=== PATIENT | male | born 1940 | race Hispanic/Latino ===

== ENCOUNTER 2016-12-21 08:38 | Emergency (ER) | payer MEDICARE, BC ==
[2016-12-21 08:44] VITALS: TEMP 97.4
--- NOTE | 2016-12-21 10:28 | CT ---
PROCEDURE: CT HEAD WITHOUT CONTRAST. HISTORY: Fall COMPARISON: None available. TECHNIQUE: Axial computed tomography images were obtained through the head/brain without intravenous contrast. Radiation dose: Total exam DLP = 886.19 mGy-cm. This CT exam was performed using one or more of the following dose reduction techniques: Automated exposure control, adjustment of the mA and/or kV according to patient size, and/or use of iterative reconstruction technique. FINDINGS: HEMORRHAGE: No intracranial hemorrhage. 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 There are mild chronic microangiopathic changes. There is no mass, mass effect or abnormal extra-axial fluid collection. There are coarse atherosclerotic calcifications in the cavernous carotid arteries. VENTRICLES: There is mild age-related global parenchymal volume loss and proportionate enlargement of the ventricles and cortical sulci. CALVARIUM: There is no calvarial fracture or extracranial soft tissue swelling. PARANASAL SINUSES: Predominantly clear. MASTOID AIR CELLS: Predominantly clear. OTHER FINDINGS: None. IMPRESSION: No acute intracranial abnormality. Age-related involutional changes.
--- NOTE | 2016-12-21 10:52 | ED PDOC ---
HPI: Trauma/Fall - HPI Time Seen by Provider: 12/21/16 08:52 Chief Complaint (Nursing): Trauma Chief Complaint (Provider): Trauma History Per: Patient History/Exam Limitations: no limitations Onset/Duration Of Symptoms: Hrs (prior to arrival) Additional Complaint(s): 76 y/o male with a past medical history of end stage renal disease who presents to the emergency department with a complaint of left hip pain due to a fall after trying to get something from the car floor just before his Dialysis appointment this morning. Patient states he lost his balance, landed on his left hip and hit the back of the head. Intense pain on the left hip but able to walk. Denies dizziness, chest pain, loss of consciousness or difficulty breathing. PMD: Dr. Anthony Johnson Past Medical History Reviewed: Historical Data, Nursing Documentation, Vital Signs Vital Signs: Last Vital Signs Temp 97.4 F L 12/21/16 08:57 Pulse 66 12/21/16 08:57 Resp 19 12/21/16 09:42 BP 110/50 L 12/21/16 08:57 Pulse Ox 97 12/21/16 09:42 - Medical History PMH: Atrial Fibrillation, CAD, CHF, HTN, Hypercholesterolemia, End Stage Renal Disease (MWF), Chronic Kidney Disease (ESRD) - Surgical History Surgical History: CABG, Coronary Stent, Pacemaker - Family History Family History: States: Unknown Family Hx - Home Medications Home Medications: Ambulatory Orders Medication Instructions Recorded Carvedilol [Coreg] 25 mg PO BID 11/26/14 Clopidogrel [Plavix] 75 mg PO DAILY 11/26/14 Insulin Glargine, Recombina 6 units SC HS 11/26/14 [Lantus] NIFEdipine ER [Procardia XL] 60 mg PO DAILY 11/26/14 Albiglutide [Tanzeum] 30 mg SC QWK 03/20/16 Aspirin [Ecotrin] 81 mg PO DAILY 03/20/16 B Complex & C No.20/Folic Acid 1 cap PO DAILY 03/20/16 [Renal Caps Softgel] Omeprazole 40 mg PO DAILY 03/20/16 SITagliptin [Januvia] 50 mg PO DAILY 03/20/16 Sevelamer Carbonate [Renvela] 2,400 mg PO TID 03/20/16 Lidocaine 5% [Lidoderm] 1 patch TOP DAILY #0 patch 03/22/16 traMADol [Ultram] 50 mg PO TID PRN #12 tab 03/22/16 - Allergies Allergies/Adverse Reactions: Allergies Allergy/AdvReac Type Severity Reaction Status Date / Time No Known Allergies Allergy Verified 11/25/14 21:47 Review of Systems ROS Statement: Except As Marked, All Systems Reviewed And Found Negative Constitutional: Negative for: Other (loss of consciousness) Cardiovascular: Negative for: Chest Pain Respiratory: Negative for: Shortness of Breath Musculoskeletal: Positive for: Other (left hip pain) Neurological: Positive for: Other (Injury to the back of the head). Negative for: Dizziness Physical Exam - Reviewed Nursing Documentation Reviewed: Yes Vital Signs Reviewed: Yes - Physical Exam Appears: Positive for: Non-toxic, No Acute Distress Head Exam: Positive for: ATRAUMATIC, NORMAL INSPECTION, NORMOCEPHALIC Skin: Positive for: Normal Color, Warm, Dry Eye Exam: Positive for: Normal appearance (Patch over the right eye) Neck: Positive for: Normal, Supple Cardiovascular/Chest: Positive for: Regular Rate, Rhythm. Negative for: Murmur Respiratory: Positive for: Normal Breath Sounds. Negative for: Accessory Muscle Use, Respiratory Distress Back: Positive for: Other (Tenderness to the left hip on palpation) Extremity: Positive for: Normal ROM (5/5 strength and able to extended and flexion of the arms and legs bilaterally. Able to move without limition. ) Neurologic/Psych: Positive for: Alert (Awake), Oriented - ECG O2 Sat by Pulse Oximetry: 97 (RA) Pulse Ox Interpretation: Normal Medical Decision Making Medical Decision Making: Time: 8:52 Initial impression: Fall Contusion and head injury Initial plan: --Toradol 60 mg IM --Hip 1 View w/ pelvis LT (RAD) --Head CT --Revaluation Time: 10:26 --Head CT FINDINGS: HEMORRHAGE: No intracranial hemorrhage. 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 There are mild chronic microangiopathic changes. There is no mass, mass effect or abnormal extra-axial fluid collection. There are coarse atherosclerotic calcifications in the cavernous carotid arteries. VENTRICLES: There is mild age-related global parenchymal volume loss and proportionate enlargement of the ventricles and cortical sulci. CALVARIUM: There is no calvarial fracture or extracranial soft tissue swelling. PARANASAL SINUSES: Predominantly clear. MASTOID AIR CELLS: Predominantly clear. OTHER FINDINGS: None. IMPRESSION: No acute intracranial abnormality. Age-related involutional changes. Time: 10:53 --Hip X-ray FINDINGS: BONES: The pelvic ring is intact. There is no acute fracture or bone destruction. JOINTS: There is mild degenerative osteoarthrosis in both hip joints. SOFT TISSUES: Normal. OTHER FINDINGS: There are bilateral common right iliac and left femoral endovascular stent grafts. IMPRESSION: No acute fracture or dislocation. Scribe Attestation: Documented by Shannan Day, acting as a scribe for Doris Guaman MD. Provider Scribe Attestation: All medical record entries made by the Scribe were at my direction and personally dictated by me. I have reviewed the chart and agree that the record accurately reflects my personal performance of the history, physical exam, medical decision making, and the department course for this patient. I have also personally directed, reviewed, and agree with the discharge instructions and disposition. Disposition - Clinical Impression Clinical Impression: Contusion - Patient ED Disposition Is Patient to be Admitted: No Doctor Will See Patient In The: Office Counseled Patient/Family Regarding: Diagnosis, Need For Followup - Disposition Referrals: Anthony Johnson MD [Primary Care Provider] - Disposition: Routine/Home Disposition Time: 11:01 Condition: STABLE Instructions: Fall Prevention for Older Adults (ED) - POA Present On Arrival: Falls Or Trauma
[2016-12-21 11:07] VITALS: BP 132/74; PULSE 74; RESP 20; O2SAT 98
== END 2016-12-21 11:07 | disposition home or self-care (01) ==
LOC: H.ER 08:38 → SUPCPDRO 08:38 → H.ER 11:07
DX: T14.8 Other injury of unspecified body region (principal); W19.XXXA Unspecified fall, initial encounter; I12.0 Hypertensive chronic kidney disease with stage 5 chronic kidney disease or end stage renal disease; N18.6 End stage renal disease; Z99.2 Dependence on renal dialysis; I48.91 Unspecified atrial fibrillation; I25.10 Atherosclerotic heart disease of native coronary artery without angina pectoris; E78.00 Pure hypercholesterolemia, unspecified
CPT/HCPCS: 70450; 73501; 96372; 99285; J1885

== ENCOUNTER 2017-02-06 13:45 | Inpatient (IN) | payer MEDICARE, BC ==
--- NOTE | 2017-02-06 15:07 | ED PDOC ---
Lower Extremity Pain/Injury Time Seen by Provider: 02/06/17 14:09 Chief Complaint (Nursing): Lower Extremity Problem/Injury Chief Complaint (Provider): Rt. Foot Pain History Per: Patient History/Exam Limitations: no limitations Onset/Duration Of Symptoms: Worse Since (1 day) Current Symptoms Are (Timing): Still Present Severity: Severe Additional Complaint(s): Pt. presents to the E.R. complaining of Rt. foot pain. Pt. states he has pain in his RT. foot for five days but became very painful last night. Pt. states had difficulty falling asleep and took Tylenol which helped. Pt. reports he went to dialysis this morning but the pain was persistent and unbareable. Pt. admits that pain is not new and he has had it for approximately 2 months but it was tolerable but starting 5 days ago it has been progressively getting worse. Pt. denies any injury, trauma, or fall. Pt. also denies any fever, chills, redness, or swelling. On ROS, pt. denies any headache, chest pain, palpitations , dyspnea, abdominal pain, nausea, vomiting, or diarrhea. Past Medical History Vital Signs: Last Vital Signs Temp 98.0 F 02/06/17 13:48 Pulse 80 02/06/17 13:48 Resp 16 02/06/17 13:48 BP 119/58 L 02/06/17 13:48 Pulse Ox 96 02/06/17 13:48 - Medical History PMH: Atrial Fibrillation, CAD, CHF, HTN, Hypercholesterolemia, End Stage Renal Disease (MWF), Chronic Kidney Disease (ESRD) - Surgical History Surgical History: CABG, Coronary Stent, Pacemaker - Family History Family History: States: Unknown Family Hx - Home Medications Home Medications: Ambulatory Orders Medication Instructions Recorded Carvedilol [Coreg] 25 mg PO Q12H 11/26/14 Clopidogrel [Plavix] 75 mg PO DAILY 11/26/14 NIFEdipine ER [Procardia XL] 60 mg PO DAILY 11/26/14 Albiglutide [Tanzeum] 30 mg SC QWK 03/20/16 B Complex W-C No.20/Folic Acid 1 cap PO DAILY 03/20/16 [Renal Caps Softgel] SITagliptin [Januvia] 50 mg PO DAILY 03/20/16 Sevelamer Carbonate [Renvela] 2,400 mg PO TID 03/20/16 Atorvastatin [Lipitor] 10 mg PO HS 02/06/17 Pantoprazole Sodium [Protonix] 40 mg PO DAILY 02/06/17 Vorapaxar Sulfate [Zontivity] 2.08 mg PO DAILY 02/06/17 - Allergies Allergies/Adverse Reactions: Allergies Allergy/AdvReac Type Severity Reaction Status Date / Time No Known Allergies Allergy Verified 02/06/17 13:47 Wells Criteria for PE - Wells Criteria for Pulmonary Embolism Clinical Signs and Symptoms of DVT: No P.E is #1 Diagnosis, or Equally Likely: No Heart Rate >100: No Immobilization at least 3 days;Surgery previous 4 weeks: No Previous, objectively diagnosed PE or DVT: No Hemoptysis: No Malignancy w/treatment within 6 months, or palliative: No Total Score: 0 Review of Systems Musculoskeletal: Positive for: Foot Pain (See HPI) Physical Exam - Reviewed Vital Signs Reviewed: Yes - Physical Exam Appears: Positive for: Non-toxic, No Acute Distress Head Exam: Positive for: ATRAUMATIC, NORMOCEPHALIC Cardiovascular/Chest: Positive for: Regular Rate, Rhythm, Other. Negative for: Murmur Respiratory: Positive for: Crackles (bi-basilar ), Other (good air intake). Negative for: Wheezing, Respiratory Distress Gastrointestinal/Abdominal: Positive for: Soft. Negative for: Tenderness Extremity: Positive for: Other (RT 2nd digit- 1cm Ulcer medial surface, RT 1st digit- 2 disting Eschar noted). Negative for: Calf Tenderness - Laboratory Results Result Diagrams: 02/06/17 15:05 02/06/17 15:05 - ECG O2 Sat by Pulse Oximetry: 96 - Progress ED Course And Treament: Tylenol 650mg po for pain Ultram 50mg po for pain CBC, CMP, Wound Culture RT. foot x-ray, TUTU/PVR Podiatry consult Re-evaluation Time: 16:00 Condition: Unchanged Medical Decision Making Medical Decision Makin y.o. male with Hx of CAD s/p CABG, CKD on HD --, HTN, and Diabetes presents with acute RT. foot pain found to have an ulcer at the medial surface of RT. foot 2nd toe with subsequent consult with Podiatry. After discussion with podiatry the ulcer appears to be arterial in etiology and patient will need further evaluation and a vascular workup. Disposition - Clinical Impression Clinical Impression: Ulcer of foot - Patient ED Disposition Is Patient to be Admitted: Yes Discussed With DrTanya: Doris Guaman - Disposition Disposition Time: 16:50 Condition: GUARDED
[2017-02-06 15:29] LABS: BASO # 0.1 K/uL (0.0-0.2); BASO % 0.5 % (0.0-2.0); EOS # 0.1 K/uL (0.0-0.7); EOS % 0.5 % (0.0-4.0); HEMATOCRIT 28.4 % (35.0-51.0); LYMPH # 1.1 K/uL (1.0-4.3); LYMPH % 8.5 % (20.0-40.0); MEAN CORPUSCULAR HEMOGLOBIN 21.2 pg (27.0-31.0); MEAN CORPUSCULAR HGB CONC 29.5 g/dL (33.0-37.0); MEAN PLATELET VOLUME 9.4 fl (7.2-11.7); MONO # 1.3 K/uL (0.0-0.8); MONO % 10.3 % (0.0-10.0); NEUT # 10.4 K/uL (1.8-7.0); NEUT % 80.2 % (50.0-75.0); NRBC % 0.1 % (0.0-0.0); PLATELET COUNT 190 K/uL (130-400); WHITE BLOOD COUNT 12.9 K/uL (4.8-10.8)
[2017-02-06 15:41] LABS: ALB/GLOB RATIO 1.2 (1.0-2.1); BILIRUBIN,TOTAL 0.8 mg/dl (0.2-1.3); CALCIUM 9.6 mg/dL (8.4-10.2); POTASSIUM 3.6 MMOL/L (3.6-5.0); TOTAL PROTEIN 8.4 G/DL (6.3-8.2)
[2017-02-06 16:00] LABS: NEUTROPHIL 85 % (42-75); TOTAL CELLS COUNTED 100
[2017-02-06 16:10] LABS: LARGE PLATELETS PRESENT
--- NOTE | 2017-02-06 17:35 | CP.PCM.CON ---
History of Present Illness - History of Present Illness History of Present Illness: 76 y/o male with pmhx of Atrial Fibrillation, CAD, CHF, HTN, Hypercholesterolemia, End Stage Renal Disease (MWF), Chronic Kidney Disease ( ESRD) seen at bedside in the ED for right foot ulceration and necrotic wounds. Patient states that he has had the ulceration on his 2nd toe of the right foot for 2 months but noticed pain for 1 day. Patient had dialysis this morning and decided to come to the ED after because the pain was intolerable. Patient denies any recent trauma or injury to his right foot. He denies any n/f/v/c/d/ sob. Review of Systems - Constitutional Constitutional: As Per HPI Past Patient History - Infectious Disease Hx of Infectious Diseases: None - Past Medical History & Family History Past Medical History?: Yes - Past Social History Smoking Status: Former Smoker - CARDIAC Hx Cardiac Disorders: Yes (CHF,HTN, afib,pacemaker,) - PULMONARY Hx Respiratory Disorders: Yes (pleural effusion) - HEENT Hx HEENT Problems: No - RENAL Hx Chronic Kidney Disease: Yes (ESRD) - ENDOCRINE/METABOLIC Hx Diabetes Mellitus Type 1: Yes - HEMATOLOGICAL/ONCOLOGICAL Hx Blood Disorders: No - INTEGUMENTARY Hx Dermatological Problems: No - MUSCULOSKELETAL/RHEUMATOLOGICAL Hx Falls: Yes - GASTROINTESTINAL Hx Gastrointestinal Disorders: No - GENITOURINARY/GYNECOLOGICAL Hx Genitourinary Disorders: No - PSYCHIATRIC Hx Psychophysiologic Disorder: No Hx Substance Use: No - SURGICAL HISTORY Hx Coronary Artery Bypass Graft: Yes Hx Coronary Stent: Yes - ANESTHESIA Hx Anesthesia: Yes Hx Anesthesia Reactions: No Meds Allergies/Adverse Reactions: Allergies Allergy/AdvReac Type Severity Reaction Status Date / Time No Known Allergies Allergy Verified 02/06/17 13:47 - Medications Medications: Current Medications Acetaminophen (Tylenol 325mg Tab) 650 mg PO Q6 PRN PRN Reason: Pain, moderate (4-7) Atorvastatin Calcium (Lipitor) 10 mg PO HS [facility]ACIEL Carvedilol (Coreg) 25 mg PO Q12H RACI[facility] Heparin Sodium (Porcine) (Heparin) 5,000 units SC Q8 RACIEL PRN Reason: Protocol Insulin Human Regular (Humulin R) 0 units SC ACHS RACIEL PRN Reason: Protocol Nifedipine (Procardia Xl) 60 mg PO DAILY RAC[facility] Pantoprazole Sodium (Protonix Ec Tab) 40 mg PO DAILY R[facility] Sevelamer HCl (Renagel) 2,400 mg PO TID RACIEL Sitagliptin Phosphate (Januvia) 25 mg PO DAILY RACI[facility] Tramadol HCl (Ultram) 50 mg PO Q8 PRN PRN Reason: Pain, severe (8-10) Vitamin B Complex/Vit C/Folic Acid (Nephro-Niko) 1 tab PO DAILY RACIEL Physical Exam - Constitutional Appears: Well, Non-toxic, No Acute Distress - Extremities Exam Additional comments: Vasc: nonpalpable pedal pulses b/l, TG wnl, CFT < 4 sec to all digits, edema to 1st and 2nd digits R foot neuro: grossly diminished derm: edema and erythema to 1st and 2nd digits of R foot, open ulceration measuring 0.5cm x 0.5cm x 0.1 cm with fibrogranular base and fibrotic border, no drainage, no purulence, no abscess, no ascending cellullitis, necrotic eschar noted to medial hallux and dorsal hallucal nail ortho: pain on palpation to 1st and 2nd digits of R foot - Neurological Exam Neurological exam: Alert, Oriented x3 - Psychiatric Exam Psychiatric exam: Normal Affect, Normal Mood Results - Vital Signs Recent Vital Signs: Last Vital Signs Temp 98.6 F 02/06/17 17:07 Pulse 86 02/06/17 17:07 Resp 16 02/06/17 17:07 BP 122/53 L 02/06/17 17:07 Pulse Ox 96 02/06/17 16:51 - Labs Result Diagrams: 02/06/17 15:05 02/06/17 15:05 Assessment & Plan - Assessment and Plan (Free Text) Assessment: 76 y/o male with pmhx of Atrial Fibrillation, CAD, CHF, HTN, Hypercholesterolemia, End Stage Renal Disease (MWF), Chronic Kidney Disease ( ESRD) seen in ED for R 2nd digit ulceration and gangrenous changes to Right hallux Plan: patient evaluated and chart reviewed discussed in detail with attending Dr. Lebron labs and vitals reviewed; WBC 12.9 applied DSD to R foot wound cx obtained f/u x rays f/u TUTU/PVR f/u Vascular consult podiatry will continue to follow while patient remains in house
--- NOTE | 2017-02-06 18:24 | CP.PCM.CON ---
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 THE PATIENT HAD A BILATERAL LE ANGIOGRAM BY DR NIXON AND HAD STENTING OF THE LLE MORE THAN A YEAR AGO. HE HAD RLE PAD ALSO BUT DECLINED TO GO BACK FOR RLE STENTING HE THOUGHT HE HAD TOO MUCH PAIN FROM THE THE PRIOR LLE STENTING. HE NOW CLAIMS THAT HE HAS HAD PAIN IN THE FIRST TWO DIGITS OF THE RIGHT FOOT FOR SEVERAL WEEKS BUT THE PAIN BECAME MORE SEVERE FOR THE LAST FEW DAYS AND AT HD TODAY HE WAS ADVISED TO GO TO THE ER. HE WAS FOUND TO HAVE ULCERS ON THE FIRST TWO TOES OF THE RIGHT FOOT AND WAS ADMITTED. CARDIOLOGY WAS ASKED TO SEE AND FOLLOW HIM. HE DENIES CHEST PAIN OR SOB. Past Patient History - Infectious Disease Hx of Infectious Diseases: None - Past Medical History & Family History Past Medical History?: Yes - Past Social History Smoking Status: Former Smoker - CARDIAC Hx Cardiac Disorders: Yes (CHF,HTN, afib,pacemaker,) - PULMONARY Hx Respiratory Disorders: Yes (pleural effusion) - HEENT Hx HEENT Problems: No - RENAL Hx Chronic Kidney Disease: Yes (ESRD) - ENDOCRINE/METABOLIC Hx Diabetes Mellitus Type 1: Yes - HEMATOLOGICAL/ONCOLOGICAL Hx Blood Disorders: No - INTEGUMENTARY Hx Dermatological Problems: No - MUSCULOSKELETAL/RHEUMATOLOGICAL Hx Falls: Yes - GASTROINTESTINAL Hx Gastrointestinal Disorders: No - GENITOURINARY/GYNECOLOGICAL Hx Genitourinary Disorders: No - PSYCHIATRIC Hx Psychophysiologic Disorder: No Hx Substance Use: No - SURGICAL HISTORY Hx Coronary Artery Bypass Graft: Yes Hx Coronary Stent: Yes - ANESTHESIA Hx Anesthesia: Yes Hx Anesthesia Reactions: No Meds Allergies/Adverse Reactions: Allergies Allergy/AdvReac Type Severity Reaction Status Date / Time No Known Allergies Allergy Verified 02/06/17 13:47 - Medications Medications: Current Medications Acetaminophen (Tylenol 325mg Tab) 650 mg PO Q6 PRN PRN Reason: Pain, moderate (4-7) Atorvastatin Calcium (Lipitor) 10 mg PO HS RACIEL Carvedilol (Coreg) 25 mg PO Q12H RACIEL Heparin Sodium (Porcine) (Heparin) 5,000 units SC Q8 RACIEL PRN Reason: Protocol Insulin Human Regular (Humulin R) 0 units SC ACHS RACIEL PRN Reason: Protocol Nifedipine (Procardia Xl) 60 mg PO DAILY RACIEL Pantoprazole Sodium (Protonix Ec Tab) 40 mg PO DAILY RACIEL Sevelamer HCl (Renagel) 2,400 mg PO TID RACIEL Sitagliptin Phosphate (Januvia) 25 mg PO DAILY RACIEL Tramadol HCl (Ultram) 50 mg PO Q8 PRN PRN Reason: Pain, severe (8-10) Vitamin B Complex/Vit C/Folic Acid (Nephro-Niko) 1 tab PO DAILY RACIEL Physical Exam - Respiratory Exam Additional comments: DECREASED BREATH SOUND RT BASE(CHRONIC SINCE FALL WITH RIB FRACTURE IN THE PAST WITH BLOODY PLEURAL EFFUSION ON THORACENTESIS) - Cardiovascular Exam Cardiovascular Exam: REGULAR RHYTHM, +S1, +S2 - Extremities Exam Additional comments: RIGHT FOOT WITH SMALL ULCERS ON MEDIAL AND LATERAL FIRST TOE AND MEDIAL ULCER ON SECOND TOE - Additional Findings Additional findings: WBC 12.9 EKG AND CXR NOT DONE YET Results - Vital Signs Recent Vital Signs: Last Vital Signs Temp 98.0 F 02/06/17 17:40 Pulse 80 02/06/17 17:40 Resp 19 02/06/17 17:40 BP 113/54 L 02/06/17 17:40 Pulse Ox 92 L 02/06/17 17:40 - Labs Result Diagrams: 02/06/17 15:05 02/06/17 15:05 Assessment & Plan - Assessment and Plan (Free Text) Assessment: PAD WITH RIGHT FOOT TOE ULCERS CAD WITH CABGS AND MITRAL VALVE RING REPAIR HYPERTENSION HYPERLIPIDEMIA DM CRF ON HD Plan: THE PATIENT WAS ADMITTED TO 6S PT ALREADY SEEN BY PODIATRY ARTERIAL VASCULAR STUDIES ALREADY ORDERED THE PATIENT IS ON COREG, ASPIRIN, HEPARIN, ATORVASTATIN, JANUVIA AND PROCARDIA NEPHROLOGY TO SEE THE PATIENT MAY NEED A RLE ANGIOGRAM WITH REVASCULARIZATION IF POSSIBLE
--- NOTE | 2017-02-06 18:25 | RAD ---
PROCEDURE: Right Foot Radiographs. HISTORY: Ulcer, Pain COMPARISON: None available. FINDINGS: BONES: Cortical irregularity along the medial aspect of the proximal 1st phalanx. No appreciable soft tissue defect at this level. Remainder of the visualized osseous structures appear unremarkable. JOINTS: No dislocation. SOFT TISSUES: Soft tissue swelling. No evidence of radiopaque foreign body. Vascular calcifications. OTHER FINDINGS: None. IMPRESSION: Soft tissue swelling. Cortical irregularity along the medial aspect of the proximal 1st phalanx. No appreciable soft tissue defect at this level. Please note MRI without and with IV contrast most sensitive in detection of acute osteomyelitis.
--- NOTE | 2017-02-06 20:47 | CP.PCM.CON ---
History of Present Illness - History of Present Illness History of Present Illness: dictated Past Patient History - Infectious Disease Hx of Infectious Diseases: None - Past Medical History & Family History Past Medical History?: Yes - Past Social History Smoking Status: Former Smoker - CARDIAC Hx Cardiac Disorders: Yes (CHF,HTN, afib,pacemaker,) - PULMONARY Hx Respiratory Disorders: Yes (pleural effusion) - HEENT Hx HEENT Problems: No - RENAL Hx Chronic Kidney Disease: Yes (ESRD) - ENDOCRINE/METABOLIC Hx Diabetes Mellitus Type 1: Yes - HEMATOLOGICAL/ONCOLOGICAL Hx Blood Disorders: No - INTEGUMENTARY Hx Dermatological Problems: No - MUSCULOSKELETAL/RHEUMATOLOGICAL Hx Falls: Yes - GASTROINTESTINAL Hx Gastrointestinal Disorders: No - GENITOURINARY/GYNECOLOGICAL Hx Genitourinary Disorders: No - PSYCHIATRIC Hx Psychophysiologic Disorder: No Hx Substance Use: No - SURGICAL HISTORY Hx Coronary Artery Bypass Graft: Yes Hx Coronary Stent: Yes - ANESTHESIA Hx Anesthesia: Yes Hx Anesthesia Reactions: No Meds Allergies/Adverse Reactions: Allergies Allergy/AdvReac Type Severity Reaction Status Date / Time No Known Allergies Allergy Verified 02/06/17 13:47 - Medications Medications: Current Medications Acetaminophen (Tylenol 325mg Tab) 650 mg PO Q6 PRN PRN Reason: Pain, moderate (4-7) Aspirin (Ecotrin) 81 mg PO DAILY [facility] Atorvastatin Calcium (Lipitor) 10 mg PO HS RACIEL Carvedilol (Coreg) 25 mg PO Q12H RACIEL Heparin Sodium (Porcine) (Heparin) 5,000 units SC Q8 RACIEL PRN Reason: Protocol Last Admin: 02/06/17 19:09 Dose: 5,000 units Insulin Human Regular (Humulin R) 0 units SC ACHS [facility] PRN Reason: Protocol Nifedipine (Procardia Xl) 60 mg PO DAILY RACIEL Pantoprazole Sodium (Protonix Ec Tab) 40 mg PO DAILY RACIEL Sevelamer HCl (Renagel) 2,400 mg PO TID RACIEL Sitagliptin Phosphate (Januvia) 25 mg PO DAILY RACIEL Tramadol HCl (Ultram) 50 mg PO Q8 PRN PRN Reason: Pain, severe (8-10) Vitamin B Complex/Vit C/Folic Acid (Nephro-Niko) 1 tab PO DAILY [facility] Results - Vital Signs Recent Vital Signs: Last Vital Signs Temp 98.0 F 02/06/17 17:40 Pulse 80 02/06/17 17:57 Resp 20 02/06/17 17:57 BP 113/54 L 02/06/17 17:40 Pulse Ox 95 02/06/17 17:57 - Labs Result Diagrams: 02/06/17 15:05 02/06/17 15:05
--- NOTE | 2017-02-06 21:33 | CON ---
DATE: 02/06/2017 REQUESTING PHYSICIAN: Dr. Huff. HISTORY OF PRESENT ILLNESS: This patient who is 76 years of age, known to me with end-stage renal disease, on maintenance hemodialysis Saturday, Saturday, Saturday. He was complaining today at the dialysis with severe pain in the right big and second toes on the right foot and it was noted that he has ulcerations and the patient stated that he has had this ulcer for about a month or less, and although the pain increasing for which he decided to ask for pain medication and he was sent to the Emergency Room for further evaluation. PAST MEDICAL HISTORY: Significant for: 1. Chronic congestive heart failure with an ejection fraction in the range of 20%-25%. 2. Diabetes mellitus for a long time. Not controlled because the patient is not compliant with the dialysis, not compliant with the medication and the patient has intermittent volume overload with congestive heart failure because of the fluid. According to the he has been drinking a lot of fluid and eating sugar among other things that is raising his blood sugar. 3. Hypertension. 4. Hyperlipidemia. 5. CABG with defibrillator in place. 6. The patient also has a history of peripheral vascular disease. He has had stenting in the left leg; however, he declined to have stenting on the right leg where he had the ulceration. SOCIAL HISTORY: The patient is , with children, but he is not compliant. The brings him to dialysis and she is always complaining about his noncompliance. PHYSICAL EXAMINATION: GENERAL: The patient is conscious, not in acute distress. VITAL SIGNS: His blood pressure is 113/54, temperature normal 98.0. NECK: Supple. CHEST: Clear. No rales or rhonchi. HEART: No rubs could be appreciated and no distended jugular vein. ABDOMEN: He might have some ascites, it is somewhat distended. EXTREMITIES: He has trace edema. LABORATORY DATA: Showed a hemoglobin of 8.4,WBC 12.9 with a creatinine of 3.2, BUN 26, post-hemodialysis. IMPRESSION AND PLAN: The patient was admitted with ulceration and foot ulcer of the right leg first and second toes with redness and appeared to be some cellulitis as well. In addition, the patient has chronic renal failure on dialysis, chronic congestive heart failure, peripheral vascular disease, diabetes. PLAN: antibiotics, seen by podiatry, probably peripheral arterial Doppler to be done and may need extra hemodialysis. I will be talking to the patient further, if he is agreeable.vascular evaluation, Tono Frost MD cc: 19 TT: 02/06/2017 21:32:23 Confirmation # [id number] Dictation # [id number] ana ROSE
[2017-02-06] MEDS: Insulin Regular 100 units/ml SC SCH (22:50)
[2017-02-07 06:52] LABS: BASO # 0.1 K/uL (0.0-0.2); BASO % 0.5 % (0.0-2.0); EOS # 0.1 K/uL (0.0-0.7); EOS % 0.5 % (0.0-4.0); HEMATOCRIT 25.8 % (35.0-51.0); LYMPH # 1.1 K/uL (1.0-4.3); LYMPH % 8.7 % (20.0-40.0); MEAN CELL VOLUME 71.9 fl (80.0-94.0); MEAN CORPUSCULAR HEMOGLOBIN 21.4 pg (27.0-31.0); MEAN CORPUSCULAR HGB CONC 29.8 g/dL (33.0-37.0); MEAN PLATELET VOLUME 9.8 fl (7.2-11.7); MONO # 1.4 K/uL (0.0-0.8); MONO % 11.8 % (0.0-10.0); NEUT # 9.5 K/uL (1.8-7.0); NEUT % 78.5 % (50.0-75.0); NRBC % 0.1 % (0.0-0.0); RED CELL DISTRIBUTION WIDTH 20.5 % (11.5-14.5); WHITE BLOOD COUNT 12.1 K/uL (4.8-10.8)
[2017-02-07 07:28] LABS: ALB/GLOB RATIO 1.1 (1.0-2.1); BILIRUBIN,TOTAL 0.7 mg/dl (0.2-1.3); CALCIUM 9.1 mg/dL (8.4-10.2); POTASSIUM 4.2 MMOL/L (3.6-5.0); TOTAL PROTEIN 7.4 G/DL (6.3-8.2)
[2017-02-07] MEDS: Insulin Regular 100 units/ml SC SCH ×4 (07:40→22:15)
[2017-02-07 07:43] LABS: PARTIAL THROMBOPLASTIN TIME 30.3 Seconds (25.6-37.1)
--- NOTE | 2017-02-07 08:24 | CP.PCM.PN ---
Subjective - Date & Time of Evaluation Date of Evaluation: 02/07/17 Time of Evaluation: 08:22 - Subjective Subjective: 76 y/o male with seen at bedside in the ED for right foot ulceration and necrotic wounds. Patient denies any acute events overnight. He states that the pain has gotten a little bit better than yesterday. Patient denies any recent trauma or injury to his right foot. He denies any n/f/v/c/d/sob. Objective - Vital Signs/Intake and Output Vital Signs (last 24 hours): Temp Pulse Resp BP Pulse Ox 98.7 F 67 20 110/60 95 02/07/17 07:40 02/07/17 07:40 02/07/17 07:40 02/07/17 07:40 02/07/17 07:40 - Medications Medications: Current Medications Acetaminophen (Tylenol 325mg Tab) 650 mg PO Q6 PRN PRN Reason: Pain, moderate (4-7) Aspirin (Ecotrin) 81 mg PO DAILY [facility] Atorvastatin Calcium (Lipitor) 10 mg PO HS [facility] Last Admin: 02/06/17 22:45 Dose: 10 mg Carvedilol (Coreg) 25 mg PO Q12H [facility] Last Admin: 02/07/17 04:30 Dose: 25 mg Heparin Sodium (Porcine) (Heparin) 5,000 units SC Q8 [facility] PRN Reason: Protocol Last Admin: 02/07/17 00:16 Dose: 5,000 units Insulin Human Regular (Humulin R) 0 units SC ACHS [facility] PRN Reason: Protocol Last Admin: 02/06/17 22:50 Dose: Not Given Nifedipine (Procardia Xl) 60 mg PO DAILY [facility] Pantoprazole Sodium (Protonix Ec Tab) 40 mg PO DAILY [facility] Sevelamer HCl (Renagel) 2,400 mg PO TID [facility] Sitagliptin Phosphate (Januvia) 25 mg PO DAILY [facility] Tramadol HCl (Ultram) 50 mg PO Q8 PRN PRN Reason: Pain, severe (8-10) Last Admin: 02/07/17 00:12 Dose: 50 mg Vitamin B Complex/Vit C/Folic Acid (Nephro-Niko) 1 tab PO DAILY [facility] - Labs Labs: 02/07/17 06:05 02/07/17 06:05 PT 14.1 Seconds (9.8-13.1) H 02/07/17 06:05 INR 1.2 (0.9-1.2) 02/07/17 06:05 APTT 30.3 Seconds (25.6-37.1) 02/07/17 06:05 - Constitutional Appears: Well, Non-toxic, No Acute Distress - Extremities Exam Additional comments: Vasc: nonpalpable pedal pulses b/l, TG wnl, CFT < 4 sec to all digits, edema to 1st and 2nd digits R foot neuro: grossly diminished derm: edema and erythema to 1st and 2nd digits of R foot, open ulceration measuring 0.5cm x 0.5cm x 0.1 cm with fibrogranular base and fibrotic border, no drainage, no purulence, no abscess, mild malodor, no ascending cellullitis, necrotic eschar noted to medial hallux and dorsal hallucal nail ortho: pain on palpation to 1st and 2nd digits of R foot - Neurological Exam Neurological Exam: Alert, Awake, Oriented x3 - Psychiatric Exam Psychiatric exam: Normal Affect, Normal Mood Assessment and Plan - Assessment and Plan (Free Text) Assessment: 76 y/o male seen at bedside for R 2nd digit ulceration and gangrenous changes to Right hallux Plan: patient evaluated and chart reviewed discussed in detail with attending Dr. Lebron labs and vitals reviewed; WBC 12.1, afebrile applied DSD to R foot wound cx obtained Rx betadine X rays of right foot show soft tissue swelling, cortical irregularity of 1st proximal phalanx f/u TUTU/PVR f/u Vascular consult podiatry will continue to follow while patient remains in house
[2017-02-07] MEDS ORDERED: Povidone Iodine 10% OINTMENT TOP ONE (08:27)
[2017-02-07] MEDS: Multivitamin Vitamin B Complex (Nephro-Vite) Tab PO SCH (09:00)
[2017-02-07] MEDS: Pantoprazole 40 mg EC Tab PO SCH (09:12)
[2017-02-07] MEDS: NIFEdipine 60 mg ER Tab PO SCH (09:13)
--- NOTE | 2017-02-07 10:12 | CP.PCM.PN ---
Subjective - Date & Time of Evaluation Date of Evaluation: 02/07/17 Time of Evaluation: 09:45 - Subjective Subjective: NO CHEST PAIN OR SOB Objective - Vital Signs/Intake and Output Vital Signs (last 24 hours): Temp Pulse Resp BP Pulse Ox 98.7 F 67 20 110/60 95 02/07/17 07:40 02/07/17 07:40 02/07/17 07:40 02/07/17 07:40 02/07/17 07:40 - Medications Medications: Current Medications Acetaminophen (Tylenol 325mg Tab) 650 mg PO Q6 PRN PRN Reason: Pain, moderate (4-7) Aspirin (Ecotrin) 81 mg PO DAILY [facility] Atorvastatin Calcium (Lipitor) 10 mg PO HS [facility] Last Admin: 02/06/17 22:45 Dose: 10 mg Carvedilol (Coreg) 25 mg PO Q12H [facility] Last Admin: 02/07/17 04:30 Dose: 25 mg Heparin Sodium (Porcine) (Heparin) 5,000 units SC Q8 [facility] PRN Reason: Protocol Last Admin: 02/07/17 00:16 Dose: 5,000 units Insulin Human Regular (Humulin R) 0 units SC ACHS [facility] PRN Reason: Protocol Last Admin: 02/06/17 22:50 Dose: Not Given Iohexol (Omnipaque 240 (50 Ml)) 50 ml PO ONCE ONE Stop: 02/07/17 10:00 Nifedipine (Procardia Xl) 60 mg PO DAILY [facility] Pantoprazole Sodium (Protonix Ec Tab) 40 mg PO DAILY [facility] Sevelamer HCl (Renagel) 2,400 mg PO TID [facility] Sitagliptin Phosphate (Januvia) 25 mg PO DAILY [facility] Tramadol HCl (Ultram) 50 mg PO Q8 PRN PRN Reason: Pain, severe (8-10) Last Admin: 02/07/17 00:12 Dose: 50 mg Vitamin B Complex/Vit C/Folic Acid (Nephro-Niko) 1 tab PO DAILY [facility] - Labs Labs: 02/07/17 06:05 02/07/17 06:05 PT 14.1 Seconds (9.8-13.1) H 02/07/17 06:05 INR 1.2 (0.9-1.2) 02/07/17 06:05 APTT 30.3 Seconds (25.6-37.1) 02/07/17 06:05 - Respiratory Exam Respiratory Exam: Decreased Breath Sounds Additional comments: DECREASED BREATH SOUNDS RIGHT BASE - Cardiovascular Exam Cardiovascular Exam: REGULAR RHYTHM, +S1, +S2 - Extremities Exam Additional comments: RIGHT FIRST AND SECOND TOE ULCERS PREVIOUSLY DESCRIBED - Additional Findings Additional findings: WBC 12.1 H/H 03/26 K+ 4.2 Assessment and Plan - Assessment and Plan (Free Text) Assessment: PAD WITH RIGHT TOE ULCERS CAD CRF ON HD HYPERTENSION DM ANEMIA Plan: PATIENT DISCUSSED WITH DR REBOLLEDO AND DR MCWILLIAMS WILL TRANSFUSE 2U RBCS AND HOLD HEPARIN, ASPIRIN AND CLOPIDOGREL CONTINUE CARVEDILOL, ATORVASTATIN, PROCARDIA, PROTONIX AND JANUVIA FOR PVRS TODAY PATIENT WILL PROBABLY NEED A REPEAT RLE ANGIOGRAM FOR POSSIBLE REVASCULARIZATION
--- NOTE | 2017-02-07 10:13 | RAD ---
HISTORY: CAD COMPARISON: 04/26/2011 TECHNIQUE: Chest PA and lateral FINDINGS: LUNGS: Right lower lobe infiltrate. Probable small right pleural effusion. No evidence of left pleural effusion. PLEURA: As above CARDIOVASCULAR: CABG. AICD. Mitral valvular replacement. Right subclavian vascular stent new since prior examination. OSSEOUS STRUCTURES: No significant abnormalities. VISUALIZED UPPER ABDOMEN: Normal. OTHER FINDINGS: None. IMPRESSION: Right lower lobe infiltrate and probable small right pleural effusion. AICD. CABG. Mitral valvular replacement.
[2017-02-07] MEDS ORDERED: Iohexol 240 (50 ml) PO ONE (10:30)
--- NOTE | 2017-02-07 11:23 | CP.PCM.PN ---
Subjective - Date & Time of Evaluation Date of Evaluation: 02/07/17 Time of Evaluation: 11:21 - Subjective Subjective: Patient and bed Complaining of pain in the right hip area Complaining of weakness Complaining of mild shortness of breath Objective - Vital Signs/Intake and Output Vital Signs (last 24 hours): Temp Pulse Resp BP Pulse Ox 98.7 F 67 20 110/60 95 02/07/17 07:40 02/07/17 09:13 02/07/17 07:40 02/07/17 09:13 02/07/17 07:40 - Medications Medications: Current Medications Acetaminophen (Tylenol 325mg Tab) 650 mg PO Q6 PRN PRN Reason: Pain, moderate (4-7) Aspirin (Ecotrin) 81 mg PO DAILY [facility] Last Admin: 02/07/17 09:00 Dose: Not Given Atorvastatin Calcium (Lipitor) 10 mg PO HS [facility] Last Admin: 02/06/17 22:45 Dose: 10 mg Carvedilol (Coreg) 25 mg PO Q12H [facility] Last Admin: 02/07/17 04:30 Dose: 25 mg Heparin Sodium (Porcine) (Heparin) 5,000 units SC Q8 [facility] PRN Reason: Protocol Last Admin: 02/07/17 09:00 Dose: Not Given Vancomycin HCl 1 gm/ Sodium (Chloride) 250 mls @ 166.667 mls/hr IVPB DAILY [facility] Piperacillin Sod/Tazobactam (Sod 2.25 gm/ Sodium Chloride) 100 mls @ 100 mls/ hr IVPB Q8 [facility] Insulin Human Regular (Humulin R) 0 units SC ACHS [facility] PRN Reason: Protocol Last Admin: 02/06/17 22:50 Dose: Not Given Nifedipine (Procardia Xl) 60 mg PO DAILY [facility] Last Admin: 02/07/17 09:13 Dose: 60 mg Pantoprazole Sodium (Protonix Ec Tab) 40 mg PO DAILY [facility] Last Admin: 02/07/17 09:12 Dose: 40 mg Sevelamer HCl (Renagel) 2,400 mg PO TID [facility] Last Admin: 02/07/17 09:14 Dose: 2,400 mg Sitagliptin Phosphate (Januvia) 25 mg PO DAILY [facility] Last Admin: 02/07/17 09:00 Dose: 25 mg Tramadol HCl (Ultram) 50 mg PO Q8 PRN PRN Reason: Pain, severe (8-10) Last Admin: 02/07/17 00:12 Dose: 50 mg Vitamin B Complex/Vit C/Folic Acid (Nephro-Niko) 1 tab PO DAILY [facility] Last Admin: 02/07/17 09:00 Dose: 1 tab - Labs Labs: 02/07/17 06:05 02/07/17 06:05 PT 14.1 Seconds (9.8-13.1) H 02/07/17 06:05 INR 1.2 (0.9-1.2) 02/07/17 06:05 APTT 30.3 Seconds (25.6-37.1) 02/07/17 06:05 - Constitutional Appears: No Acute Distress - ENT Exam ENT Exam: Mucous Membranes Moist - Respiratory Exam Respiratory Exam: Rhonchi. absent: Chest Wall Tenderness - Cardiovascular Exam Cardiovascular Exam: REGULAR RHYTHM. absent: Rubs - GI/Abdominal Exam GI & Abdominal Exam: Distended, Normal Bowel Sounds - Back Exam Back Exam: absent: CVA tenderness (L) - Neurological Exam Neurological Exam: Alert Assessment and Plan (1) Ulcer of foot Status: Chronic (2) CHF (congestive heart failure) Status: Chronic (3) ESRD (end stage renal disease) on dialysis Assessment & Plan: Patient with end stage renal disease admitted with the right foot ulcer however his hemoglobin today 7.8 and complaining of weakness with history of congestive heart failure, patient need blood transfusion today so we will do dialysis today so we can given the blood. In addition active problem right foot ulcer probably related to peripheral vascular disease patient has previous stent on the left leg but not on the right leg. 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
--- NOTE | 2017-02-07 13:49 | CP.PCM.HP ---
<Jhonny Deluca - Last Filed: 02/07/17 13:45> History of Present Illness - History of Present Illness History of Present Illness: 76 year old male with PMHx of multiple comorbidities who presented to ED with right foot pain x 5 days that worsened the evening prior to arrival. Patient went to HD morning of admission and was recommended to go to ED for evaluation of right foot toe ulcer. Patient denies fever, chills, abdominal pain, chest pain, sob, swelling, palpitations, recent trauma. Patient was seen in ED by podiatry which recommended vascular work up. PMH: CAD, CHF, HTN, Hypercholesterolemia, ESRD on HD (M/W/F), DM, A fib (as per chart), CHF (as per chart) PMD: , Dr. Huff, Dr. Frost Medications: as per chart Allergies: NKDA Surgeries: Right inguinal hernia repair, CABG, Coronary Stent, Pacemaker, cardiac cath Social: Patient lives with . Patient former smoker - used to smoke 2 packs/ day x15 years. Patient denies ETOH and illicit drug use. Present on Admission - Present on Admission Any Indicators Present on Admission: Yes History of Uncontrolled Diabetes: Yes Review of Systems - Review of Systems All systems: reviewed and no additional remarkable complaints except (mentioned in HPI) Past Patient History - Infectious Disease Hx of Infectious Diseases: None - Past Medical History & Family History Past Medical History?: Yes - Past Social History Smoking Status: Former Smoker - CARDIAC Hx Cardiac Disorders: Yes (CHF,HTN, afib,pacemaker,) - PULMONARY Hx Respiratory Disorders: Yes (pleural effusion) - HEENT Hx HEENT Problems: No - RENAL Hx Chronic Kidney Disease: Yes (ESRD) - ENDOCRINE/METABOLIC Hx Diabetes Mellitus Type 1: Yes - HEMATOLOGICAL/ONCOLOGICAL Hx Blood Disorders: No - INTEGUMENTARY Hx Dermatological Problems: No - MUSCULOSKELETAL/RHEUMATOLOGICAL Hx Falls: Yes - GASTROINTESTINAL Hx Gastrointestinal Disorders: No - GENITOURINARY/GYNECOLOGICAL Hx Genitourinary Disorders: No - PSYCHIATRIC Hx Psychophysiologic Disorder: No Hx Substance Use: No - SURGICAL HISTORY Hx Coronary Artery Bypass Graft: Yes Hx Coronary Stent: Yes - ANESTHESIA Hx Anesthesia: Yes Hx Anesthesia Reactions: No Meds Allergies/Adverse Reactions: Allergies Allergy/AdvReac Type Severity Reaction Status Date / Time No Known Allergies Allergy Verified 02/06/17 13:47 Physical Exam - Constitutional Appears: Well, Non-toxic, No Acute Distress - Head Exam Head Exam: ATRAUMATIC, NORMAL INSPECTION, NORMOCEPHALIC - Eye Exam Eye Exam: Normal appearance - Neck Exam Neck exam: Positive for: Normal Inspection - Respiratory Exam Respiratory Exam: Clear to Auscultation Bilateral, NORMAL BREATHING PATTERN - Cardiovascular Exam Cardiovascular Exam: REGULAR RHYTHM, RRR, +S1, +S2 - GI/Abdominal Exam GI & Abdominal Exam: Normal Bowel Sounds, Soft. absent: Tenderness - Extremities Exam Extremities exam: Negative for: calf tenderness, pedal edema Additional comments: right 1st/2nd toe with ulcerations/gangrenous changes - Neurological Exam Neurological exam: Alert, Oriented x3 - Psychiatric Exam Psychiatric exam: Normal Affect, Normal Mood - Skin Skin Exam: Dry, Intact, Normal Color, Warm Results - Vital Signs Recent Vital Signs: Last Vital Signs Temp 98.7 F 02/07/17 07:40 Pulse 67 02/07/17 09:13 Resp 20 02/07/17 07:40 BP 110/60 02/07/17 09:13 Pulse Ox 95 02/07/17 07:40 - Labs Result Diagrams: 02/07/17 06:05 02/07/17 06:05 Labs: Laboratory Results - last 24 hr 02/06/17 02/07/17 02/07/17 22:44 05:33 06:05 WBC 12.1 H RBC 3.58 L Hgb 7.7 L Hct 25.8 L MCV 71.9 L MCH 21.4 L MCHC 29.8 L RDW 20.5 H Plt Count 171 MPV 9.8 Neut % (Auto) 78.5 H Lymph % (Auto) 8.7 L [place] % (Auto) 11.8 H Eos % (Auto) 0.5 Baso % (Auto) 0.5 Neut # 9.5 H Lymph # 1.1 [place] # 1.4 H Eos # 0.1 Baso # 0.1 PT INR APTT Sodium Potassium Chloride Carbon Dioxide Anion Gap BUN Creatinine Est GFR ( Amer) Est GFR (Non-Af Amer) POC Glucose (mg/dL) 304 H 250 H Random Glucose Calcium Iron Ferritin Total Bilirubin AST ALT Alkaline Phosphatase Total Protein Albumin Globulin Albumin/Globulin Ratio Vitamin B12 Blood Type Blood Type Confirm Antibody Screen Crossmatch BBK History Checked 06/08/17 06/08/17 06/08/17 06:05 06:05 08:50 WBC RBC Hgb Hct MCV MCH MCHC RDW Plt Count MPV Neut % (Auto) Lymph % (Auto) [place] % (Auto) Eos % (Auto) Baso % (Auto) Neut # Lymph # [place] # Eos # Baso # PT 14.1 H INR 1.2 APTT 30.3 Sodium 137 Potassium 4.2 Chloride 90 L Carbon Dioxide 32 H Anion Gap 19 BUN 38 H Creatinine 4.5 H Est GFR ( Amer) 15 Est GFR (Non-Af Amer) 13 POC Glucose (mg/dL) Random Glucose 248 H Calcium 9.1 Iron Ferritin 540.0 Total Bilirubin 0.7 AST 20 ALT 23 Alkaline Phosphatase 65 Total Protein 7.4 Albumin 3.9 Globulin 3.5 Albumin/Globulin Ratio 1.1 Vitamin B12 Blood Type Blood Type Confirm Antibody Screen Crossmatch BBK History Checked 02/07/17 02/07/17 02/07/17 08:50 09:20 09:31 WBC RBC Hgb Hct MCV MCH MCHC RDW Plt Count MPV Neut % (Auto) Lymph % (Auto) [place] % (Auto) Eos % (Auto) Baso % (Auto) Neut # Lymph # [place] # Eos # Baso # PT INR APTT Sodium Potassium Chloride Carbon Dioxide Anion Gap BUN Creatinine Est GFR ( Amer) Est GFR (Non-Af Amer) POC Glucose (mg/dL) Random Glucose Calcium Iron 26 L Ferritin Total Bilirubin AST ALT Alkaline Phosphatase Total Protein Albumin Globulin Albumin/Globulin Ratio Vitamin B12 Blood Type A NEGATIVE Blood Type Confirm A NEGATIVE Antibody Screen Negative Crossmatch See Detail BBK History Checked No verified bt 02/07/17 02/07/17 10:13 11:05 WBC RBC Hgb Hct MCV MCH MCHC RDW Plt Count MPV Neut % (Auto) Lymph % (Auto) [place] % (Auto) Eos % (Auto) Baso % (Auto) Neut # Lymph # [place] # Eos # Baso # PT INR APTT Sodium Potassium Chloride Carbon Dioxide Anion Gap BUN Creatinine Est GFR ( Amer) Est GFR (Non-Af Amer) POC Glucose (mg/dL) 273 H Random Glucose Calcium Iron Ferritin 558.0 Total Bilirubin AST ALT Alkaline Phosphatase Total Protein Albumin Globulin Albumin/Globulin Ratio Vitamin B12 636 Blood Type Blood Type Confirm Antibody Screen Crossmatch BBK History Checked Assessment & Plan (1) Ulcer of foot Assessment and Plan: Right foot, 1st/2nd toe Circulatory cause? X rays of right foot show soft tissue swelling, cortical irregularity of 1st proximal phalanx labs reviewed; WBC 12.1, afebrile wound cx pending f/u TUTU/PVR Podiatry consulted, appreciate recommendations Vascular consulted, appreciate recommendations Status: Chronic (4) Diabetes Assessment and Plan: Diabetic/renal diet Accuchecks ACHS c/w Insulin/Januvia Status: Chronic Priority: High (5) ESRD (end stage renal disease) on dialysis Assessment and Plan: on HD (M/W/F) Renal consulted, appreciate input Renal diet c/w home meds Status: Chronic <Rocco Huff - Last Filed: 02/10/17 13:05> Results - Vital Signs Recent Vital Signs: Last Vital Signs Temp 98 F 02/10/17 08:00 Pulse 73 02/10/17 10:00 Resp 15 02/10/17 10:00 BP 132/51 L 02/10/17 10:00 Pulse Ox 99 02/10/17 10:00 - Labs Result Diagrams: 02/10/17 05:30 02/10/17 05:30 Labs: Laboratory Results - last 24 hr 02/09/17 02/09/17 02/09/17 11:40 16:02 22:28 WBC RBC Hgb Hct MCV MCH MCHC RDW Plt Count Sodium Potassium Chloride Carbon Dioxide Anion Gap BUN Creatinine Est GFR ( Amer) Est GFR (Non-Af Amer) POC Glucose (mg/dL) 329 H 130 H Random Glucose Calcium Total Bilirubin AST ALT Alkaline Phosphatase Total Protein Albumin Globulin Albumin/Globulin Ratio Procalcitonin 1.71 H 02/10/17 02/10/17 02/10/17 05:30 05:30 05:51 WBC 14.2 H RBC 4.28 L Hgb 9.3 L Hct 31.0 L MCV 72.3 L D MCH 21.7 L MCHC 30.0 L RDW 19.8 H Plt Count 227 Sodium 134 Potassium 3.8 Chloride 92 L Carbon Dioxide 25 Anion Gap 21 H BUN 35 H Creatinine 4.5 H Est GFR ( Amer) 15 Est GFR (Non-Af Amer) 13 POC Glucose (mg/dL) 242 H Random Glucose 234 H Calcium 8.4 Total Bilirubin 0.6 AST 23 ALT 22 Alkaline Phosphatase 74 Total Protein 7.1 Albumin 3.7 Globulin 3.4 Albumin/Globulin Ratio 1.1 Procalcitonin 02/10/17 10:55 WBC RBC Hgb Hct MCV MCH MCHC RDW Plt Count Sodium Potassium Chloride Carbon Dioxide Anion Gap BUN Creatinine Est GFR ( Amer) Est GFR (Non-Af Amer) POC Glucose (mg/dL) 261 H Random Glucose Calcium Total Bilirubin AST ALT Alkaline Phosphatase Total Protein Albumin Globulin Albumin/Globulin Ratio Procalcitonin Assessment & Plan - Assessment and Plan (Free Text) Plan: I was present during evaluation and examined patient with Dr Abdi. Discussed plan of care. Rocco Huff M.D.
--- NOTE | 2017-02-07 17:09 | CT ---
PROCEDURE: CT Abdomen and Pelvis with contrast HISTORY: Anemia, hip pain COMPARISON: 05/10/2016. CT abdomen and pelvis. TECHNIQUE: Contrast dose: Oral contrast only. Radiation dose: Total exam DLP = 913.86 mGy-cm. This CT exam was performed using one or more of the following dose reduction techniques: Automated exposure control, adjustment of the mA and/or kV according to patient size, and/or use of iterative reconstruction technique. FINDINGS: LOWER THORAX: Bilateral pleural effusions. New left pleural effusion comment increasing right pleural effusion. Compressive atelectasis both lower lobes right greater than left. Increasing compressive atelectasis all identified with respect to the right lower lobe LIVER: Unremarkable. No gross lesion or ductal dilatation. GALLBLADDER AND BILE DUCTS: Gallbladder wall thickening, pericholecystic fluid. Solitary gallstone in the neck of the gallbladder. Presumptive evidence for acute cholecystitis. PANCREAS: Edematous changes affecting the pancreas primarily the head and proximal body with adjacent inflammatory change consistent with acute pancreatitis. Remainder the pancreatic body and tail are unaffected. SPLEEN: Unremarkable. ADRENALS: Unremarkable. No mass. KIDNEYS AND URETERS: No significant interval change compared to the prior examination(s). Kidneys, multiple small renal cysts. Largest cysts in the right kidney measures 3.1 cm. The remaining cysts appear less than 1 cm. All VASCULATURE: Unremarkable. No aortic aneurysm. BOWEL: Unremarkable. No obstruction. No gross mural thickening. APPENDIX: Normal appendix. PERITONEUM: Trace intra-abdominal and pelvic fluid. LYMPH NODES: Unremarkable. No enlarged lymph nodes. BLADDER: The bladder is decompressed. REPRODUCTIVE: Unremarkable. BONES: Left pelvic ring fracture. This was not seen previously. Fracture through the ischium and lateral aspect of the pubis adjacent to the left acetabulum. Moderate and symmetrical degenerative changes both hips. OTHER FINDINGS: Postoperative findings related prior right inguinal herniorrhaphy. Persistent fat containing left inguinal hernia. IMPRESSION: 1. Acute left pelvic ring fracture. 2. Findings suggestive of acute cholecystitis. 3. Findings suggestive of acute pancreatitis. Additional benign and incidental findings The thorax abdomen and pelvis described above. Communication of results findings discussed with ALTHEA Thomas at 17:02. February 07, 2017.
[2017-02-07 17:34] LABS: FOLATE > 20.0 ng/mL
--- NOTE | 2017-02-07 18:31 | CP.PCM.CON ---
History of Present Illness - History of Present Illness History of Present Illness: 76 y/o male with pmhx of Atrial Fibrillation, CAD, CHF, HTN, Hypercholesterolemia, End Stage Renal Disease (MWF), Chronic Kidney Disease ( ESRD) seen at bedside in the ED for right foot ulceration and necrotic wounds. Patient states that he has had the ulceration on his 2nd toe of the right foot for 2 months but noticed pain for 1 day. Patient had dialysis this morning and decided to come to the ED after because the pain was intolerable. Patient denies any recent trauma or injury to his right foot. He denies any n/f/v/c/d/ sob. referred for id eval for antibiotic management Review of Systems - Constitutional Constitutional: As Per HPI - EENT Eyes: absent: As Per HPI, Blind Spots, Blurred Vision, Change in Vision, Decreased Night Vision, Diplopia, Discharge, Dry Eye, Exophthalmos, Floaters, Irritation, Itchy Eyes, Loss of Peripheral Vision, Pain, Photophobia, Requires Corrective Lenses, Sees Flashes, Spots in Vision, Tunnel Vision, Other Visual Disturbances, Loss of Vision, Other Ears: absent: As Per HPI, Decreased Hearing, Ear Discharge, Ear Pain, Tinnitus, Abnormal Hearing, Disequilibrium, Dizziness, Other Nose/Mouth/Throat: absent: As Per HPI, Epistaxis, Nasal Congestion, Nasal Discharge, Nasal Obstruction, Nasal Trauma, Nose Pain, Post Nasal Drip, Sinus Pain, Sinus Pressure, Bleeding Gums, Change in Voice, Dental Pain, Dry Mouth, Dysphagia, Halitosis, Hoarsness, Lip Swelling, Mouth Lesions, Mouth Pain, Odynophagia, Sore Throat, Throat Swelling, Tongue Swelling, Facial Pain, Neck Pain, Neck Mass, Other - Cardiovascular Cardiovascular: absent: As Per HPI, Acrocyanosis, Chest Pain, Chest Pain at Rest , Chest Pain with Activity, Claudication, Diaphoresis, Dyspnea, Dyspnea on Exertion, Edema, Irregular Heart Rhythm, Pain Radiating to Arm/Neck/Jaw, Leg Edema, Leg Ulcers, Lightheadedness, Orthopnea, Palpitations, Paroxysmal Nocturnal Dyspnea, Pedal Edema, Radiating Pain, Rapid Heart Rate, Slow Heart Rate, Syncope, Other - Respiratory Respiratory: absent: As Per HPI, Cough, Dyspnea, Hemoptysis, Dyspnea on Exertion , Wheezing, Snoring, Stridor, Pain on Inspiration, Chest Congestion, Excessive Mucous Production, Change in Mucous Color, Pain with Coughing, Other - Gastrointestinal Gastrointestinal: absent: As Per HPI, Abdominal Pain, Belching, Bloating, Change in Bowel Habits, Change in Stool Character, Coffee Ground Emesis, Constipation, Cramping, Diarrhea, Dyspepsia, Dysphagia, Early Satiety, Excessive Flatus, Fecal Incontinence, Heartburn, Hematemesis, Hematochezia, Loose Stools, Melena, Nausea, Odynophagia, Temesmus, Vomiting, Other - Genitourinary Genitourinary: absent: As Per HPI, Change in Urinary Stream, Difficulty Urinating, Dysuria, Flank Pain, Hematuria, Pyuria, Nocturia, Urinary Incontinence, Urinary Frequency, Urinary Hesitance, Urinary Urgency, Voiding Freq/Small Amts, Freq UTI, Hx Renal/Bladder Calculi, Hx /Renal Surgery, Bladder Distension, Other - Musculoskeletal Musculoskeletal: As Per HPI - Integumentary Integumentary: As Per HPI, Skin Pain, Wounds - Neurological Neurological: absent: As Per HPI, Abnormal Gait, Abnormal Hearing, Abnormal Movements, Abnormal Speech, Behavioral Changes, Burning Sensations, Confusion, Convulsions, Disequilibrium, Dizziness, Numbness, Focal Weakness, Frequent Falls , Headaches, Lack of Coordination, Loss of Vision, Memory Loss, Paresthesias, Radicular Pain, Restless Legs, Sensory Deficit, Syncope, Tingling, Tremor, Vertigo, Weakness, Other Visual Disturbances, Other - Psychiatric Psychiatric: absent: As Per HPI, Abnormal Sleep Pattern, Anhedonia, Anxiety, Auditory Hallucinations, Behavioral Changes, Change in Appetite, Change in Libido, Confusion, Depression, Difficulty Concentrating, Hallucinations, Homicidal Ideation, Hopelessness, Irritability, Memory Loss, Mood Swings, Panic Attacks, Paranoia, Suicidal Ideation, Visual Hallucinations, Tactile Hallucinations, Other - Endocrine Endocrine: absent: As Per HPI, Change in Body Appearance, Change in Libido, Cold Intolorance, Deepening of Voice, Excessive Sweating, Fatigue, Flushing, Heat Intolorance, Increase in Ring/Shoe/Hat Size, Palpitations, Polydipsia, Polyphagia, Polyuria, Other - Hematologic/Lymphatic Hematologic: absent: As Per HPI, Easy Bleeding, Easy Bruising, Lymphadenopathy, Other Past Patient History - Infectious Disease Hx of Infectious Diseases: None - Past Medical History & Family History Past Medical History?: Yes - Past Social History Smoking Status: Former Smoker - CARDIAC Hx Cardiac Disorders: Yes (CHF,HTN, afib,pacemaker,) - PULMONARY Hx Respiratory Disorders: Yes (pleural effusion) - HEENT Hx HEENT Problems: No - RENAL Hx Chronic Kidney Disease: Yes (ESRD) - ENDOCRINE/METABOLIC Hx Diabetes Mellitus Type 1: Yes - HEMATOLOGICAL/ONCOLOGICAL Hx Blood Disorders: No - INTEGUMENTARY Hx Dermatological Problems: No - MUSCULOSKELETAL/RHEUMATOLOGICAL Hx Falls: Yes - GASTROINTESTINAL Hx Gastrointestinal Disorders: No - GENITOURINARY/GYNECOLOGICAL Hx Genitourinary Disorders: No - PSYCHIATRIC Hx Psychophysiologic Disorder: No Hx Substance Use: No - SURGICAL HISTORY Hx Coronary Artery Bypass Graft: Yes Hx Coronary Stent: Yes - ANESTHESIA Hx Anesthesia: Yes Hx Anesthesia Reactions: No Meds Allergies/Adverse Reactions: Allergies Allergy/AdvReac Type Severity Reaction Status Date / Time No Known Allergies Allergy Verified 02/06/17 13:47 - Medications Medications: Current Medications Acetaminophen (Tylenol 325mg Tab) 650 mg PO Q6 PRN PRN Reason: Pain, moderate (4-7) Aspirin (Ecotrin) 81 mg PO DAILY [facility] Last Admin: 02/07/17 09:00 Dose: Not Given Atorvastatin Calcium (Lipitor) 10 mg PO HS [facility] Last Admin: 02/06/17 22:45 Dose: 10 mg Carvedilol (Coreg) 25 mg PO Q12H [facility] Last Admin: 02/07/17 16:50 Dose: Not Given Heparin Sodium (Porcine) (Heparin) 5,000 units SC Q8 RACIEL PRN Reason: Protocol Last Admin: 02/07/17 09:00 Dose: Not Given Vancomycin HCl 1 gm/ Sodium (Chloride) 250 mls @ 166.667 mls/hr IVPB DAILY [facility] Last Admin: 02/07/17 15:00 Dose: 166.667 mls/hr Piperacillin Sod/Tazobactam (Sod 2.25 gm/ Sodium Chloride) 100 mls @ 100 mls/ hr IVPB Q8 [facility] Last Admin: 02/07/17 16:49 Dose: 100 mls/hr Insulin Human Regular (Humulin R) 0 units SC ACHS RACIEL PRN Reason: Protocol Last Admin: 02/07/17 16:42 Dose: 3 units Nifedipine (Procardia Xl) 60 mg PO DAILY [facility] Last Admin: 02/07/17 09:13 Dose: 60 mg Ondansetron HCl (Zofran Inj) 4 mg IVP Q6 PRN PRN Reason: Nausea/Vomiting Pantoprazole Sodium (Protonix Ec Tab) 40 mg PO DAILY [facility] Last Admin: 02/07/17 09:12 Dose: 40 mg Sevelamer HCl (Renagel) 2,400 mg PO TID [facility] Last Admin: 02/07/17 16:43 Dose: 2,400 mg Sitagliptin Phosphate (Januvia) 25 mg PO DAILY [facility] Last Admin: 02/07/17 09:00 Dose: 25 mg Tramadol HCl (Ultram) 50 mg PO Q8 PRN PRN Reason: Pain, severe (8-10) Last Admin: 02/07/17 00:12 Dose: 50 mg Vitamin B Complex/Vit C/Folic Acid (Nephro-Niko) 1 tab PO DAILY [facility] Last Admin: 02/07/17 09:00 Dose: 1 tab Physical Exam - Constitutional Appears: Non-toxic - Head Exam Head Exam: NORMAL INSPECTION - Eye Exam Eye Exam: EOMI - ENT Exam ENT Exam: Normal Exam - Neck Exam Neck exam: Negative for: Lymphadenopathy - Respiratory Exam Respiratory Exam: Decreased Breath Sounds, Rhonchi - Cardiovascular Exam Cardiovascular Exam: REGULAR RHYTHM, +S1, +S2 - GI/Abdominal Exam GI & Abdominal Exam: Diminished Bowel Sounds, Soft. absent: Tenderness - Rectal Exam Rectal Exam: Deferred - Exam Exam: NORMAL INSPECTION - Extremities Exam Extremities exam: Positive for: pedal edema Additional comments: Vasc: nonpalpable pedal pulses b/l, TG wnl, CFT < 4 sec to all digits, edema to 1st and 2nd digits R foot neuro: grossly diminished derm: edema and erythema to 1st and 2nd digits of R foot, open ulceration measuring 0.5cm x 0.5cm x 0.1 cm with fibrogranular base and fibrotic border, no drainage, no purulence, no abscess, no ascending cellullitis, necrotic eschar noted to medial hallux and dorsal hallucal nail ortho: pain on palpation to 1st and 2nd digits of R foot - Back Exam Back exam: absent: CVA tenderness (L), CVA tenderness (R) - Neurological Exam Neurological exam: Alert, CN II-XII Intact, Oriented x3 - Psychiatric Exam Psychiatric exam: Normal Affect - Skin Skin Exam: Dry Results - Vital Signs Recent Vital Signs: Last Vital Signs Temp 98.7 F 02/07/17 07:40 Pulse 73 02/07/17 16:50 Resp 20 02/07/17 07:40 BP 114/51 L 02/07/17 16:50 Pulse Ox 95 02/07/17 07:40 - Labs Result Diagrams: 02/07/17 06:05 02/07/17 06:05 Labs: Laboratory Results - last 24 hr 02/06/17 02/07/17 02/07/17 22:44 05:33 06:05 WBC 12.1 H RBC 3.58 L Hgb 7.7 L Hct 25.8 L MCV 71.9 L MCH 21.4 L MCHC 29.8 L RDW 20.5 H Plt Count 171 MPV 9.8 Neut % (Auto) 78.5 H Lymph % (Auto) 8.7 L Grand % (Auto) 11.8 H Eos % (Auto) 0.5 Baso % (Auto) 0.5 Neut # 9.5 H Lymph # 1.1 Grand # 1.4 H Eos # 0.1 Baso # 0.1 PT INR APTT Sodium Potassium Chloride Carbon Dioxide Anion Gap BUN Creatinine Est GFR ( Amer) Est GFR (Non-Af Amer) POC Glucose (mg/dL) 304 H 250 H Random Glucose Calcium Iron Ferritin Total Bilirubin AST ALT Alkaline Phosphatase Total Protein Albumin Globulin Albumin/Globulin Ratio Vitamin B12 Folate Blood Type Blood Type Confirm Antibody Screen Crossmatch BBK History Checked 02/07/17 02/07/17 02/07/17 06:05 06:05 08:50 WBC RBC Hgb Hct MCV MCH MCHC RDW Plt Count MPV Neut % (Auto) Lymph % (Auto) Grand % (Auto) Eos % (Auto) Baso % (Auto) Neut # Lymph # Grand # Eos # Baso # PT 14.1 H INR 1.2 APTT 30.3 Sodium 137 Potassium 4.2 Chloride 90 L Carbon Dioxide 32 H Anion Gap 19 BUN 38 H Creatinine 4.5 H Est GFR ( Amer) 15 Est GFR (Non-Af Amer) 13 POC Glucose (mg/dL) Random Glucose 248 H Calcium 9.1 Iron Ferritin 540.0 Total Bilirubin 0.7 AST 20 ALT 23 Alkaline Phosphatase 65 Total Protein 7.4 Albumin 3.9 Globulin 3.5 Albumin/Globulin Ratio 1.1 Vitamin B12 Folate Blood Type Blood Type Confirm Antibody Screen Crossmatch BBK History Checked 02/07/17 02/07/17 02/07/17 08:50 09:20 09:31 WBC RBC Hgb Hct MCV MCH MCHC RDW Plt Count MPV Neut % (Auto) Lymph % (Auto) Grand % (Auto) Eos % (Auto) Baso % (Auto) Neut # Lymph # Grand # Eos # Baso # PT INR APTT Sodium Potassium Chloride Carbon Dioxide Anion Gap BUN Creatinine Est GFR ( Amer) Est GFR (Non-Af Amer) POC Glucose (mg/dL) Random Glucose Calcium Iron 26 L Ferritin Total Bilirubin AST ALT Alkaline Phosphatase Total Protein Albumin Globulin Albumin/Globulin Ratio Vitamin B12 Folate Blood Type A NEGATIVE Blood Type Confirm A NEGATIVE Antibody Screen Negative Crossmatch See Detail BBK History Checked No verified bt 02/07/17 02/07/17 10:13 11:05 WBC RBC Hgb Hct MCV MCH MCHC RDW Plt Count MPV Neut % (Auto) Lymph % (Auto) Grand % (Auto) Eos % (Auto) Baso % (Auto) Neut # Lymph # Grand # Eos # Baso # PT INR APTT Sodium Potassium Chloride Carbon Dioxide Anion Gap BUN Creatinine Est GFR ( Amer) Est GFR (Non-Af Amer) POC Glucose (mg/dL) 273 H Random Glucose Calcium Iron Ferritin 558.0 Total Bilirubin AST ALT Alkaline Phosphatase Total Protein Albumin Globulin Albumin/Globulin Ratio Vitamin B12 636 Folate > 20.0 Blood Type Blood Type Confirm Antibody Screen Crossmatch BBK History Checked Assessment & Plan (1) Ulcer of foot Status: Chronic (2) ESRD (end stage renal disease) Status: Acute Priority: High (3) CHF (congestive heart failure) Status: Chronic (4) Diabetes Status: Chronic Priority: High - Assessment and Plan (Free Text) Assessment: cont vanco/zosyn may need vascular eval- suspect strong component vasc insufficiency prognosis guarded for limb salvage check cultures consider possible mri
[2017-02-08] MEDS: Insulin Regular 100 units/ml SC SCH ×4 (06:44→22:16)
[2017-02-08 06:46] LABS: HEMATOCRIT 30.6 % (35.0-51.0); MEAN CELL VOLUME 73.7 fl (80.0-94.0); MEAN CORPUSCULAR HEMOGLOBIN 22.2 pg (27.0-31.0); MEAN CORPUSCULAR HGB CONC 30.1 g/dL (33.0-37.0); RED CELL DISTRIBUTION WIDTH 19.6 % (11.5-14.5); WHITE BLOOD COUNT 15.6 K/uL (4.8-10.8)
--- NOTE | 2017-02-08 06:57 | PQF DM ---
This form is a permanent part of the medical record 02/07/17 Dr. Huff, Please further clarify the type of DM. Documentation that the patient has a history of DM type I. Medication includes Januvia . While hospitalized the patient is on accuchecks with insulin coverage. Glucose running 234, 304, 250, 248, 273, 154 Clarification of your documentation is requested to better reflect the severity of illness and intensity of treatment of your patient. Indicators present: [x] Documented diagnosis of Diabetes [] Documented condition [] A1C results [x] Diabetic medications [x] Elevated blood glucose [] Nutritional consults [] ADA diet [] Other: [] Location in the medical record that reflects the above clinical findings:[] Treatment Provided: PHYSICIAN'S RESPONSE Based on your medical judgment of the clinical indicators outlined above, are you treating this patient for a known or suspected: [] Diabetes Mellitus, Type I [] Controlled [] Uncontrolled [] Diabetes Mellitus, Type II [] Controlled [] Uncontrolled [] Diabetes, Steroid induced [] Controlled [] Uncontrolled [] Diabetic conditions/complications [] Other, please indicate [] [] If Unable to Determine, please check the box, sign and date. Present On Admission (POA) Indicator: [] Present at the time of admission [] Not present at the time of admission [] Clinically Undetermined In responding to this query, please exercise your independent professional judgment. The fact that a question is asked does not imply that any particular answer is desired or expected. Thank you for your clarification on this documentation. If you have any questions please call: extension [phone] Medical Records Dept * Thank you, Luna Walker RN CDMP MTDD
[2017-02-08 07:02] LABS: POTASSIUM 4.1 MMOL/L (3.6-5.0)
--- NOTE | 2017-02-08 07:05 | PQF CHF ---
This form is a permanent part of the medical record 02/07/17 Dr. Huff, Please clarify the type of CHF if known. Director Ambulatory has documented that the patient has a history of chronic CHF with an EF in the range of 20-25%. Medication includes Coreg. Clarification of your documentation is requested to better reflect the severity of illness and intensity of treatment of your patient. Indicators present [x] Diagnosis of a history of CHF [] BNP > 200 [x] Imaging Finding of Pulmonary Edema /Pleural Effusions [] Fluid/Volume Overload [] Pitting edema [] Ejection Fraction < 40% (Indicative of Systolic Heart Failure) [] Ejection Fraction > 40% (Indicative of Diastolic Heart Failure) [] Dyspnea / Orthopenea / Paroxysmal Nocturnal Dyspnea [] Other: Location in the medical record that reflects the above clinical findings: [] Treatment Provided: [] PHYSICIAN'S RESPONSE Based on your medical judgment of the clinical indicators outlined above, are you treating this patient for a known or suspected: [] Acute CHF [] Systolic [] Diastolic [] Combined [] Chronic CHF [] Systolic [] Diastolic [] Combined [] Acute on Chronic CHF []Systolic [] Diastolic [] Combined [] CHF due hypertension [] Acute systolic []Chronic systolic [] Acute/ chronic systolic [] Other, please indicate: [] [] If Unable to Determine, please check the box, sign and date. Present On Admission (POA) Indicator: [] Present at the time of admission [] Not present at the time of admission [] Clinically Undetermined In responding to this query, please exercise your independent professional judgment. The fact that a question is asked does not imply that any particular answer is desired or expected. Thank you for your clarification on this documentation. If you have any questions please call:extension [phone] Medical Records Dept * Thank you, Luna Walker RN CDMP MTDD
--- NOTE | 2017-02-08 07:24 | CP.PCM.CON ---
History of Present Illness - History of Present Illness History of Present Illness: I was asked to provide endovascular evaluation by Dr Huff and Dr. Johnson Patient is a 76 year old male with PMH HTN, hypercholesterolemia, CAD s/p CABG, MVR ischemic cardiomyopathy s/p AICD who presents with pain and ulceration of the right foot. The patient has a previous history of PAD and had endovascular intervention of the LLE. He did not return for follow up of the right lower extremity. The patient has complained of pain of the right foot for about 2weeks. He develeoped ulcer by report. He is being followed by podiatry. Consultation has been requested for for possible endovascular therapy. The patient denies fever, chills. Review of Systems - Constitutional Constitutional: absent: As Per HPI, Anorexia, Chills, Daytime Sleepiness, Excessive Sweating, Fatigue, Fever, Frequent Falls, Headache, Increased Appetite , Lethargy, Malaise, Night Sweats, Snoring, Sleep Apnea, Weight Gain, Weight Loss, Weakness, Other - EENT Eyes: absent: As Per HPI, Blind Spots, Blurred Vision, Change in Vision, Decreased Night Vision, Diplopia, Discharge, Dry Eye, Exophthalmos, Floaters, Irritation, Itchy Eyes, Loss of Peripheral Vision, Pain, Photophobia, Requires Corrective Lenses, Sees Flashes, Spots in Vision, Tunnel Vision, Other Visual Disturbances, Loss of Vision, Other Ears: absent: As Per HPI, Decreased Hearing, Ear Discharge, Ear Pain, Tinnitus, Abnormal Hearing, Disequilibrium, Dizziness, Other Nose/Mouth/Throat: absent: As Per HPI, Epistaxis, Nasal Congestion, Nasal Discharge, Nasal Obstruction, Nasal Trauma, Nose Pain, Post Nasal Drip, Sinus Pain, Sinus Pressure, Bleeding Gums, Change in Voice, Dental Pain, Dry Mouth, Dysphagia, Halitosis, Hoarsness, Lip Swelling, Mouth Lesions, Mouth Pain, Odynophagia, Sore Throat, Throat Swelling, Tongue Swelling, Facial Pain, Neck Pain, Neck Mass, Other - Cardiovascular Cardiovascular: Claudication - Respiratory Respiratory: absent: As Per HPI, Cough, Dyspnea, Hemoptysis, Dyspnea on Exertion , Wheezing, Snoring, Stridor, Pain on Inspiration, Chest Congestion, Excessive Mucous Production, Change in Mucous Color, Pain with Coughing, Other - Gastrointestinal Gastrointestinal: absent: As Per HPI, Abdominal Pain, Belching, Bloating, Change in Bowel Habits, Change in Stool Character, Coffee Ground Emesis, Constipation, Cramping, Diarrhea, Dyspepsia, Dysphagia, Early Satiety, Excessive Flatus, Fecal Incontinence, Heartburn, Hematemesis, Hematochezia, Loose Stools, Melena, Nausea, Odynophagia, Temesmus, Vomiting, Other - Musculoskeletal Musculoskeletal: Radiating Pain into Limb - Integumentary Integumentary: absent: As Per HPI, Acne, Alopecia, Bleeding Lesions, Change in Hair, Change in Nails, Change in Pigmentation, Changing Lesions, Dry Skin, Erythema, Furuncle, Hirsutism, Lesions, New Lesions, Non-Healing Lesions, Photosensitivity, Pruritus, Rash, Skin Pain, Skin Ulcer, Sores, Striae, Swelling , Unusual Bruising, Wounds, Jaundice, Other - Neurological Neurological: absent: As Per HPI, Abnormal Gait, Abnormal Hearing, Abnormal Movements, Abnormal Speech, Behavioral Changes, Burning Sensations, Confusion, Convulsions, Disequilibrium, Dizziness, Numbness, Focal Weakness, Frequent Falls , Headaches, Lack of Coordination, Loss of Vision, Memory Loss, Paresthesias, Radicular Pain, Restless Legs, Sensory Deficit, Syncope, Tingling, Tremor, Vertigo, Weakness, Other Visual Disturbances, Other - Psychiatric Psychiatric: absent: As Per HPI, Abnormal Sleep Pattern, Anhedonia, Anxiety, Auditory Hallucinations, Behavioral Changes, Change in Appetite, Change in Libido, Confusion, Depression, Difficulty Concentrating, Hallucinations, Homicidal Ideation, Hopelessness, Irritability, Memory Loss, Mood Swings, Panic Attacks, Paranoia, Suicidal Ideation, Visual Hallucinations, Tactile Hallucinations, Other - Endocrine Endocrine: absent: As Per HPI, Change in Body Appearance, Change in Libido, Cold Intolorance, Deepening of Voice, Excessive Sweating, Fatigue, Flushing, Heat Intolorance, Increase in Ring/Shoe/Hat Size, Palpitations, Polydipsia, Polyphagia, Polyuria, Other - Hematologic/Lymphatic Hematologic: absent: As Per HPI, Easy Bleeding, Easy Bruising, Lymphadenopathy, Other Past Patient History - Infectious Disease Hx of Infectious Diseases: None - Past Medical History & Family History Past Medical History?: Yes - Past Social History Smoking Status: Former Smoker - CARDIAC Hx Cardiac Disorders: Yes (CHF,HTN, afib,pacemaker,) - PULMONARY Hx Respiratory Disorders: Yes (pleural effusion) - HEENT Hx HEENT Problems: No - RENAL Hx Chronic Kidney Disease: Yes (ESRD) - ENDOCRINE/METABOLIC Hx Diabetes Mellitus Type 1: Yes - HEMATOLOGICAL/ONCOLOGICAL Hx Blood Disorders: No - INTEGUMENTARY Hx Dermatological Problems: No - MUSCULOSKELETAL/RHEUMATOLOGICAL Hx Falls: Yes - GASTROINTESTINAL Hx Gastrointestinal Disorders: No - GENITOURINARY/GYNECOLOGICAL Hx Genitourinary Disorders: No - PSYCHIATRIC Hx Psychophysiologic Disorder: No Hx Substance Use: No - SURGICAL HISTORY Hx Coronary Artery Bypass Graft: Yes Hx Coronary Stent: Yes - ANESTHESIA Hx Anesthesia: Yes Hx Anesthesia Reactions: No Meds Allergies/Adverse Reactions: Allergies Allergy/AdvReac Type Severity Reaction Status Date / Time No Known Allergies Allergy Verified 02/06/17 13:47 - Medications Medications: Current Medications Acetaminophen (Tylenol 325mg Tab) 650 mg PO Q6 PRN PRN Reason: Pain, moderate (4-7) Aspirin (Ecotrin) 81 mg PO DAILY [facility] Last Admin: 02/07/17 09:00 Dose: Not Given Atorvastatin Calcium (Lipitor) 10 mg PO HS [facility] Last Admin: 02/07/17 21:08 Dose: 10 mg Carvedilol (Coreg) 25 mg PO Q12H [facility] Last Admin: 02/08/17 05:00 Dose: 25 mg Heparin Sodium (Porcine) (Heparin) 5,000 units SC Q8 [facility] PRN Reason: Protocol Last Admin: 02/07/17 09:00 Dose: Not Given Vancomycin HCl 1 gm/ Sodium (Chloride) 250 mls @ 166.667 mls/hr IVPB DAILY [facility] Last Admin: 02/07/17 15:00 Dose: 166.667 mls/hr Piperacillin Sod/Tazobactam (Sod 2.25 gm/ Sodium Chloride) 100 mls @ 100 mls/ hr IVPB Q8 [facility] Last Admin: 02/08/17 00:13 Dose: 100 mls/hr Insulin Human Regular (Humulin R) 0 units SC ACHS [facility] PRN Reason: Protocol Last Admin: 02/08/17 06:44 Dose: 1 units Nifedipine (Procardia Xl) 60 mg PO DAILY [facility] Last Admin: 02/07/17 09:13 Dose: 60 mg Ondansetron HCl (Zofran Inj) 4 mg IVP Q6 PRN PRN Reason: Nausea/Vomiting Last Admin: 02/07/17 18:47 Dose: 4 mg Pantoprazole Sodium (Protonix Ec Tab) 40 mg PO DAILY [facility] Last Admin: 02/07/17 09:12 Dose: 40 mg Sevelamer HCl (Renagel) 2,400 mg PO TID [facility] Last Admin: 02/07/17 16:43 Dose: 2,400 mg Sitagliptin Phosphate (Januvia) 25 mg PO DAILY [facility] Last Admin: 02/07/17 09:00 Dose: 25 mg Tramadol HCl (Ultram) 50 mg PO Q8 PRN PRN Reason: Pain, severe (8-10) Last Admin: 02/08/17 06:58 Dose: 50 mg Vitamin B Complex/Vit C/Folic Acid (Nephro-Niko) 1 tab PO DAILY [facility] Last Admin: 02/07/17 09:00 Dose: 1 tab Physical Exam - Constitutional Appears: Non-toxic - Head Exam Head Exam: NORMAL INSPECTION - Eye Exam Eye Exam: Normal appearance - ENT Exam ENT Exam: Mucous Membranes Moist - Neck Exam Neck exam: Positive for: Full Rom - Respiratory Exam Respiratory Exam: Respiratory Distress - Cardiovascular Exam Cardiovascular Exam: REGULAR RHYTHM - GI/Abdominal Exam GI & Abdominal Exam: Normal Bowel Sounds - Rectal Exam Rectal Exam: Deferred - Extremities Exam Extremities exam: Positive for: pedal edema Additional comments: dressing right foot - Neurological Exam Neurological exam: Alert, Oriented x3 - Psychiatric Exam Psychiatric exam: Normal Affect - Skin Skin Exam: Normal Color Results - Vital Signs Recent Vital Signs: Last Vital Signs Temp 97.8 F 02/08/17 05:00 Pulse 76 02/08/17 05:00 Resp 19 02/08/17 05:00 BP 122/76 02/08/17 05:00 Pulse Ox 96 02/08/17 05:00 - Labs Result Diagrams: 02/08/17 05:55 02/08/17 05:55 Labs: Laboratory Results - last 24 hr 02/07/17 02/07/17 02/07/17 06:05 06:05 08:50 WBC RBC Hgb Hct MCV MCH MCHC RDW Plt Count PT 14.1 H INR 1.2 APTT 30.3 Sodium 137 Potassium 4.2 Chloride 90 L Carbon Dioxide 32 H Anion Gap 19 BUN 38 H Creatinine 4.5 H Est GFR ( Amer) 15 Est GFR (Non-Af Amer) 13 POC Glucose (mg/dL) Random Glucose 248 H Calcium 9.1 Iron Ferritin 540.0 Total Bilirubin 0.7 AST 20 ALT 23 Alkaline Phosphatase 65 Total Protein 7.4 Albumin 3.9 Globulin 3.5 Albumin/Globulin Ratio 1.1 Vitamin B12 Folate Hepatitis A IgM Ab Hep Bs Antigen Hep B Core IgM Ab Hepatitis C Antibody Blood Type Blood Type Confirm Antibody Screen Crossmatch BBK History Checked 02/07/17 02/07/17 02/07/17 08:50 09:20 09:31 WBC RBC Hgb Hct MCV MCH MCHC RDW Plt Count PT INR APTT Sodium Potassium Chloride Carbon Dioxide Anion Gap BUN Creatinine Est GFR ( Amer) Est GFR (Non-Af Amer) POC Glucose (mg/dL) Random Glucose Calcium Iron 26 L Ferritin Total Bilirubin AST ALT Alkaline Phosphatase Total Protein Albumin Globulin Albumin/Globulin Ratio Vitamin B12 Folate Hepatitis A IgM Ab Hep Bs Antigen Hep B Core IgM Ab Hepatitis C Antibody Blood Type A NEGATIVE Blood Type Confirm A NEGATIVE Antibody Screen Negative Crossmatch See Detail BBK History Checked No verified bt 02/07/17 02/07/17 02/07/17 10:13 11:05 15:15 WBC RBC Hgb Hct MCV MCH MCHC RDW Plt Count PT INR APTT Sodium Potassium Chloride Carbon Dioxide Anion Gap BUN Creatinine Est GFR ( Amer) Est GFR (Non-Af Amer) POC Glucose (mg/dL) 273 H Random Glucose Calcium Iron Ferritin 558.0 Total Bilirubin AST ALT Alkaline Phosphatase Total Protein Albumin Globulin Albumin/Globulin Ratio Vitamin B12 636 Folate > 20.0 Hepatitis A IgM Ab Negative Hep Bs Antigen Negative Hep B Core IgM Ab Negative Hepatitis C Antibody Negative Blood Type Blood Type Confirm Antibody Screen Crossmatch BBK History Checked 02/07/17 02/08/17 02/08/17 21:32 05:55 05:55 WBC 15.6 H RBC 4.15 L Hgb 9.2 L Hct 30.6 L MCV 73.7 L MCH 22.2 L MCHC 30.1 L RDW 19.6 H Plt Count 178 PT INR APTT Sodium 140 Potassium 4.1 Chloride 96 L Carbon Dioxide 26 Anion Gap 22 H BUN 30 H Creatinine 4.1 H Est GFR ( Amer) 17 Est GFR (Non-Af Amer) 14 POC Glucose (mg/dL) 154 H Random Glucose 167 H Calcium 9.0 Iron Ferritin Total Bilirubin AST ALT Alkaline Phosphatase Total Protein Albumin Globulin Albumin/Globulin Ratio Vitamin B12 Folate Hepatitis A IgM Ab Hep Bs Antigen Hep B Core IgM Ab Hepatitis C Antibody Blood Type Blood Type Confirm Antibody Screen Crossmatch BBK History Checked 02/08/17 06:00 WBC RBC Hgb Hct MCV MCH MCHC RDW Plt Count PT INR APTT Sodium Potassium Chloride Carbon Dioxide Anion Gap BUN Creatinine Est GFR ( Amer) Est GFR (Non-Af Amer) POC Glucose (mg/dL) 178 H Random Glucose Calcium Iron Ferritin Total Bilirubin AST ALT Alkaline Phosphatase Total Protein Albumin Globulin Albumin/Globulin Ratio Vitamin B12 Folate Hepatitis A IgM Ab Hep Bs Antigen Hep B Core IgM Ab Hepatitis C Antibody Blood Type Blood Type Confirm Antibody Screen Crossmatch BBK History Checked - EKG Data EKG Interpreted by: Myself Assessment & Plan (1) PAD (peripheral artery disease) Assessment and Plan: will need furhter assessment of peripheral vasculature. will schedule CT angiogram lower extremites with runoff. given ESRD, will schedule for this am prior to dialysis. Status: Acute (2) CAD (coronary artery disease) Assessment and Plan: stable and managed by Dr Johnson Status: Acute (3) Ischemic cardiomyopathy Assessment and Plan: s/p AICD Status: Acute (4) ESRD (end stage renal disease) Assessment and Plan: risk factors for PAD. Status: Acute Priority: High
--- NOTE | 2017-02-08 07:25 | PQF ANEMIA ---
This form is a permanent part of the medical record 02/07/17 Dr. Huff, After workup would you please clarify the etiology/type of anemia if known. Patient with a history of ESRD on hemodialysis presents with a toe ulcer. H&H noted 8.4/28.4--> 7.7/25.8 , iron 26, Ferritin 558, Vitamin B12 636 and folate > 20. Treatment includes transfusion of PRBC. Network Support Administrator has documented that the patient recently fell and c/o hip pain and a CT of abdomen shows Acute L pelvic ring fracture and findings suggestive of acute cholecystitis and pancreatitis. Heparin, aspirin and clopidogrel held. Clarification of your documentation is requested to better reflect the severity of illness and intensity of treatment of your patient. Indicators present [x] Anemia [x] Drop in H&H from []___ to []___ [] Hypotension [] GI Bleed [x] Transfusion(s) [] Acute bleed other sites [] Tachycardia [] Surgical Procedure Blood Loss (expected not a complication) Other:[] Location in the medical record that reflects the above clinical findings: [] Treatment Provided: [x] PHYSICIAN'S RESPONSE Based on your medical judgment of the clinical indicators outlined above, are you treating this patient for a known or suspected: [] Acute blood loss anemia [] Chronic blood loss anemia [] Acute on Chronic blood loss anemia [] Anemia due to malignancy [] Anemia due to chemotherapy or radiation therapy [] Anemia of Chronic Kidney Disease [] Anemia of Chronic Disease, please specify: [] [] Other, please indicate type of anemia []____ [] If Unable to Determine, please check the box, sign and date. Present On Admission (POA) Indicator: [] Present at the time of admission [] Not present at the time of admission [] Clinically Undetermined In responding to this query, please exercise your independent professional judgment. The fact that a question is asked does not imply that any particular answer is desired or expected. Thank you for your clarification on this documentation. If you have any questions please call:extension [phone] Medical Records Dept. * Thank you, Luna Walker RN CDMP [facility]
[2017-02-08] MEDS ORDERED: Povidone Iodine Topical 10% Sol ONE (07:49)
--- NOTE | 2017-02-08 09:30 | CP.PCM.PN ---
Subjective - Date & Time of Evaluation Date of Evaluation: 02/08/17 Time of Evaluation: 08:30 - Subjective Subjective: NO CHEST PAIN OR SOB STILL WITH PAIN IN RIGHT FIRST AND SECOND TOES Objective - Vital Signs/Intake and Output Vital Signs (last 24 hours): Temp Pulse Resp BP Pulse Ox 97.9 F 58 L 20 103/65 99 02/08/17 08:09 02/08/17 08:09 02/08/17 08:09 02/08/17 08:09 02/08/17 08:09 - Medications Medications: Current Medications Acetaminophen (Tylenol 325mg Tab) 650 mg PO Q6 PRN PRN Reason: Pain, moderate (4-7) Aspirin (Ecotrin) 81 mg PO DAILY [facility] Last Admin: 02/07/17 09:00 Dose: Not Given Atorvastatin Calcium (Lipitor) 10 mg PO HS [facility] Last Admin: 02/07/17 21:08 Dose: 10 mg Carvedilol (Coreg) 25 mg PO Q12H [facility] Last Admin: 02/08/17 05:00 Dose: 25 mg Heparin Sodium (Porcine) (Heparin) 5,000 units SC Q8 [facility] PRN Reason: Protocol Last Admin: 02/07/17 09:00 Dose: Not Given Vancomycin HCl 1 gm/ Sodium (Chloride) 250 mls @ 166.667 mls/hr IVPB DAILY [facility] Last Admin: 02/07/17 15:00 Dose: 166.667 mls/hr Piperacillin Sod/Tazobactam (Sod 2.25 gm/ Sodium Chloride) 100 mls @ 100 mls/ hr IVPB Q8 [facility] Last Admin: 02/08/17 00:13 Dose: 100 mls/hr Insulin Human Regular (Humulin R) 0 units SC ACHS [facility] PRN Reason: Protocol Last Admin: 02/08/17 06:44 Dose: 1 units Nifedipine (Procardia Xl) 60 mg PO DAILY [facility] Last Admin: 02/07/17 09:13 Dose: 60 mg Ondansetron HCl (Zofran Inj) 4 mg IVP Q6 PRN PRN Reason: Nausea/Vomiting Last Admin: 02/07/17 18:47 Dose: 4 mg Pantoprazole Sodium (Protonix Ec Tab) 40 mg PO DAILY [facility] Last Admin: 02/07/17 09:12 Dose: 40 mg Sevelamer HCl (Renagel) 2,400 mg PO TID [facility] Last Admin: 02/07/17 16:43 Dose: 2,400 mg Sitagliptin Phosphate (Januvia) 25 mg PO DAILY [facility] Last Admin: 02/07/17 09:00 Dose: 25 mg Tramadol HCl (Ultram) 50 mg PO Q8 PRN PRN Reason: Pain, severe (8-10) Last Admin: 02/08/17 06:58 Dose: 50 mg Vitamin B Complex/Vit C/Folic Acid (Nephro-Niko) 1 tab PO DAILY [facility] Last Admin: 02/07/17 09:00 Dose: 1 tab - Labs Labs: 02/08/17 05:55 02/08/17 05:55 PT 14.1 Seconds (9.8-13.1) H 02/07/17 06:05 INR 1.2 (0.9-1.2) 02/07/17 06:05 APTT 30.3 Seconds (25.6-37.1) 02/07/17 06:05 - Respiratory Exam Respiratory Exam: Clear to Ausculation Bilateral - Cardiovascular Exam Cardiovascular Exam: REGULAR RHYTHM, +S1, +S2 - Extremities Exam Additional comments: ULCERS ON RIGHT FIRST AND SECOND TOES - Additional Findings Additional findings: DR ROBERSON' NOTE REVIEWED AND APPRECIATED H/H 06/01 AFTER 2U RBCS Assessment and Plan - Assessment and Plan (Free Text) Assessment: PAD WITH ULCERS OF RIGHT FIRST AND SECOND TOES CAD-STABLE HYPERTENSION HYPERLIPIDEMIA DM Plan: CT ANGIOGRAM ORDERED
--- NOTE | 2017-02-08 09:40 | CP.PCM.PN ---
Subjective - Date & Time of Evaluation Date of Evaluation: 02/08/17 Time of Evaluation: 09:31 - Subjective Subjective: 76 y/o male seen at bedside for right hallux necrotic wound and 2nd digit ulceration. Pt states that he is having a lot of pain in his foot and rates his pain as 11/10 on a VAS. Pt is resting in his bed comfortably in NAD and is AAOx3. Pt denies of any acute overnight events. Pt's dressing is clean, dry and intact. Pt denies of any F/N/V/C/SOB. Objective - Vital Signs/Intake and Output Vital Signs (last 24 hours): Temp Pulse Resp BP Pulse Ox 97.9 F 58 L 20 103/65 99 02/08/17 08:09 02/08/17 08:09 02/08/17 08:09 02/08/17 08:09 02/08/17 08:09 - Medications Medications: Current Medications Acetaminophen (Tylenol 325mg Tab) 650 mg PO Q6 PRN PRN Reason: Pain, moderate (4-7) Aspirin (Ecotrin) 81 mg PO DAILY [facility] Last Admin: 02/07/17 09:00 Dose: Not Given Atorvastatin Calcium (Lipitor) 10 mg PO HS [facility] Last Admin: 02/07/17 21:08 Dose: 10 mg Carvedilol (Coreg) 25 mg PO Q12H [facility] Last Admin: 02/08/17 05:00 Dose: 25 mg Heparin Sodium (Porcine) (Heparin) 5,000 units SC Q8 [facility] PRN Reason: Protocol Last Admin: 02/07/17 09:00 Dose: Not Given Vancomycin HCl 1 gm/ Sodium (Chloride) 250 mls @ 166.667 mls/hr IVPB DAILY [facility] Last Admin: 02/07/17 15:00 Dose: 166.667 mls/hr Piperacillin Sod/Tazobactam (Sod 2.25 gm/ Sodium Chloride) 100 mls @ 100 mls/ hr IVPB Q8 [facility] Last Admin: 02/08/17 00:13 Dose: 100 mls/hr Insulin Human Regular (Humulin R) 0 units SC ACHS [facility] PRN Reason: Protocol Last Admin: 02/08/17 06:44 Dose: 1 units Nifedipine (Procardia Xl) 60 mg PO DAILY [facility] Last Admin: 02/07/17 09:13 Dose: 60 mg Ondansetron HCl (Zofran Inj) 4 mg IVP Q6 PRN PRN Reason: Nausea/Vomiting Last Admin: 02/07/17 18:47 Dose: 4 mg Pantoprazole Sodium (Protonix Ec Tab) 40 mg PO DAILY [facility] Last Admin: 02/07/17 09:12 Dose: 40 mg Sevelamer HCl (Renagel) 2,400 mg PO TID [facility] Last Admin: 02/07/17 16:43 Dose: 2,400 mg Sitagliptin Phosphate (Januvia) 25 mg PO DAILY [facility] Last Admin: 02/07/17 09:00 Dose: 25 mg Tramadol HCl (Ultram) 50 mg PO Q8 PRN PRN Reason: Pain, severe (8-10) Last Admin: 02/08/17 06:58 Dose: 50 mg Vitamin B Complex/Vit C/Folic Acid (Nephro-Niko) 1 tab PO DAILY [facility] Last Admin: 02/07/17 09:00 Dose: 1 tab - Labs Labs: 02/08/17 05:55 02/08/17 05:55 PT 14.1 Seconds (9.8-13.1) H 02/07/17 06:05 INR 1.2 (0.9-1.2) 02/07/17 06:05 APTT 30.3 Seconds (25.6-37.1) 02/07/17 06:05 - Constitutional Appears: Well, Non-toxic, No Acute Distress - Extremities Exam Additional comments: Right foot focused: VASC: DP/PT pulses are non palpable, TG: warm to cool, SURFACE TO [employer]: < 4 sec to all digits, mild edema noted on the 1st and 2nd digit DERM: mild edema and erythema noted to the 1st and 2nd digit, open wound noted on the medial aspect of the 2nd digit with fibrogranular base and fibrotic border, no active drainage, no probe to bone, no malodor, no ascending cellulitis, necrotic eschar noted to medial hallux and dorsal hallucal nail NEURO: Grossly intact ORTHO: pain on palpation of the 1st and 2nd digit of the right foot - Neurological Exam Neurological Exam: Alert, Awake, Oriented x3 Assessment and Plan - Assessment and Plan (Free Text) Assessment: 76 y/o male seen at bedside for R hallux necrotic wound, 2nd digit ulceration secondary to diabetes and PAD Plan: Pt evaluated and chart reviewed Pt discussed with attending Dr. Lebron Labs and vitals reviewed WBC: 15.6 (up from 12.1 yesterday) Dressing changed using betadine, gauze and kerlix Pt to remain on IV abx as per ID MRI of right LE ordered to r/o OM Pt to be partial weight bearing with assisted devices Follow up TUTU/PVR Follow up CT angio of LE Podiatry to follow while pt is in-house
[2017-02-08] MEDS: Pantoprazole 40 mg EC Tab PO SCH (09:52)
[2017-02-08] MEDS: Multivitamin Vitamin B Complex (Nephro-Vite) Tab PO SCH (09:52)
[2017-02-08] MEDS: NIFEdipine 60 mg ER Tab PO SCH (09:53)
--- NOTE | 2017-02-08 10:36 | CP.PCM.CON ---
History of Present Illness - History of Present Illness History of Present Illness: 76 y.o. male admitted to the hospital for the work up of the right foot ulcer. Patient underwent CT scan of the abdomen and pelvis and there was a concern for cholecystitis and pancreatitis on the CT scan. Currently patient denies any abdominal pain, no nausea, no vomiting, no fever or chills, no other complains at present time except for dizziness. Review of Systems - Constitutional Constitutional: As Per HPI - EENT Eyes: Other (unremarkable) Ears: Other (unremarkable) Nose/Mouth/Throat: Other (unremarkable) - Cardiovascular Cardiovascular: Other (unremarkable) - Respiratory Respiratory: Other (unremarkable) - Gastrointestinal Gastrointestinal: As Per HPI - Genitourinary Genitourinary: Other (unremarkable) - Reproductive: Male Reproductive:Male: Other (unremarkable) - Musculoskeletal Musculoskeletal: Other (unremarkable) - Integumentary Integumentary: As Per HPI - Neurological Neurological: Other (unremarkable) - Psychiatric Psychiatric: Other (unremarkable) - Endocrine Endocrine: Other (unremarkable) - Hematologic/Lymphatic Hematologic: Other (unremarkable) Past Patient History - Infectious Disease Hx of Infectious Diseases: None - Past Medical History & Family History Past Medical History?: Yes - Past Social History Smoking Status: Former Smoker - CARDIAC Hx Cardiac Disorders: Yes (CHF,HTN, afib,pacemaker,) - PULMONARY Hx Respiratory Disorders: Yes (pleural effusion) - HEENT Hx HEENT Problems: No - RENAL Hx Chronic Kidney Disease: Yes (ESRD) - ENDOCRINE/METABOLIC Hx Diabetes Mellitus Type 1: Yes - HEMATOLOGICAL/ONCOLOGICAL Hx Blood Disorders: No - INTEGUMENTARY Hx Dermatological Problems: No - MUSCULOSKELETAL/RHEUMATOLOGICAL Hx Falls: Yes - GASTROINTESTINAL Hx Gastrointestinal Disorders: No - GENITOURINARY/GYNECOLOGICAL Hx Genitourinary Disorders: No - PSYCHIATRIC Hx Psychophysiologic Disorder: No Hx Substance Use: No - SURGICAL HISTORY Hx Surgeries: Yes Hx Coronary Artery Bypass Graft: Yes Hx Coronary Stent: Yes - ANESTHESIA Hx Anesthesia: Yes Hx Anesthesia Reactions: No Meds Allergies/Adverse Reactions: Allergies Allergy/AdvReac Type Severity Reaction Status Date / Time No Known Allergies Allergy Verified 02/06/17 13:47 - Medications Medications: Current Medications Acetaminophen (Tylenol 325mg Tab) 650 mg PO Q6 PRN PRN Reason: Pain, moderate (4-7) Aspirin (Ecotrin) 81 mg PO DAILY [facility] Last Admin: 02/07/17 09:00 Dose: Not Given Atorvastatin Calcium (Lipitor) 10 mg PO HS [facility] Last Admin: 02/07/17 21:08 Dose: 10 mg Carvedilol (Coreg) 25 mg PO Q12H [facility] Last Admin: 02/08/17 05:00 Dose: 25 mg Heparin Sodium (Porcine) (Heparin) 5,000 units SC Q8 [facility] PRN Reason: Protocol Last Admin: 02/07/17 09:00 Dose: Not Given Vancomycin HCl 1 gm/ Sodium (Chloride) 250 mls @ 166.667 mls/hr IVPB DAILY [facility] Last Admin: 02/07/17 15:00 Dose: 166.667 mls/hr Piperacillin Sod/Tazobactam (Sod 2.25 gm/ Sodium Chloride) 100 mls @ 100 mls/ hr IVPB Q8 [facility] Last Admin: 02/08/17 09:49 Dose: 100 mls/hr Insulin Human Regular (Humulin R) 0 units SC ACHS [facility] PRN Reason: Protocol Last Admin: 02/08/17 06:44 Dose: 1 units Nifedipine (Procardia Xl) 60 mg PO DAILY [facility] Last Admin: 02/08/17 09:53 Dose: 60 mg Ondansetron HCl (Zofran Inj) 4 mg IVP Q6 PRN PRN Reason: Nausea/Vomiting Last Admin: 02/07/17 18:47 Dose: 4 mg Pantoprazole Sodium (Protonix Ec Tab) 40 mg PO DAILY [facility] Last Admin: 02/08/17 09:52 Dose: 40 mg Sevelamer HCl (Renagel) 2,400 mg PO TID [facility] Last Admin: 02/08/17 09:52 Dose: 2,400 mg Sitagliptin Phosphate (Januvia) 25 mg PO DAILY [facility] Last Admin: 02/08/17 09:53 Dose: 25 mg Tramadol HCl (Ultram) 50 mg PO Q8 PRN PRN Reason: Pain, severe (8-10) Last Admin: 02/08/17 06:58 Dose: 50 mg Vitamin B Complex/Vit C/Folic Acid (Nephro-Niko) 1 tab PO DAILY [facility] Last Admin: 02/08/17 09:52 Dose: 1 tab Physical Exam - Constitutional Appears: Well, Non-toxic, No Acute Distress - Head Exam Head Exam: ATRAUMATIC, NORMAL INSPECTION, NORMOCEPHALIC - Eye Exam Eye Exam: EOMI - ENT Exam ENT Exam: Mucous Membranes Moist, Normal Exam - Neck Exam Neck exam: Positive for: Full Rom, Normal Inspection - Respiratory Exam Respiratory Exam: Rhonchi, NORMAL BREATHING PATTERN - Cardiovascular Exam Cardiovascular Exam: +S1, +S2 - GI/Abdominal Exam GI & Abdominal Exam: Normal Bowel Sounds, Soft Additional comments: NT, mildly distended, no rebound, no guarding, small reducible umbilical hernia - Rectal Exam Rectal Exam: Deferred - Extremities Exam Extremities exam: Positive for: full ROM Additional comments: ulcer to the right foot 1st and 2nd toes, no erythema - Neurological Exam Neurological exam: Alert, Oriented x3 - Psychiatric Exam Psychiatric exam: Normal Affect, Normal Mood - Skin Skin Exam: Dry, Intact, Normal Color, Warm Results - Vital Signs Recent Vital Signs: Last Vital Signs Temp 97.9 F 02/08/17 08:09 Pulse 62 02/08/17 09:53 Resp 20 02/08/17 08:09 BP 104/65 02/08/17 09:53 Pulse Ox 99 02/08/17 08:09 - Labs Result Diagrams: 02/08/17 05:55 02/08/17 05:55 Labs: Laboratory Results - last 24 hr 02/07/17 02/07/17 02/07/17 09:20 09:31 10:13 WBC RBC Hgb Hct MCV MCH MCHC RDW Plt Count Sodium Potassium Chloride Carbon Dioxide Anion Gap BUN Creatinine Est GFR ( Amer) Est GFR (Non-Af Amer) POC Glucose (mg/dL) Random Glucose Calcium Ferritin 558.0 Lipase Vitamin B12 636 Folate > 20.0 Hepatitis A IgM Ab Hep Bs Antigen Hep B Core IgM Ab Hepatitis C Antibody Blood Type A NEGATIVE Blood Type Confirm A NEGATIVE Antibody Screen Negative Crossmatch See Detail BBK History Checked No verified bt 02/07/17 02/07/17 02/07/17 11:05 15:15 21:32 WBC RBC Hgb Hct MCV MCH MCHC RDW Plt Count Sodium Potassium Chloride Carbon Dioxide Anion Gap BUN Creatinine Est GFR ( Amer) Est GFR (Non-Af Amer) POC Glucose (mg/dL) 273 H 154 H Random Glucose Calcium Ferritin Lipase Vitamin B12 Folate Hepatitis A IgM Ab Negative Hep Bs Antigen Negative Hep B Core IgM Ab Negative Hepatitis C Antibody Negative Blood Type Blood Type Confirm Antibody Screen Crossmatch BBK History Checked 02/08/17 02/08/17 02/08/17 05:55 05:55 06:00 WBC 15.6 H RBC 4.15 L Hgb 9.2 L Hct 30.6 L MCV 73.7 L MCH 22.2 L MCHC 30.1 L RDW 19.6 H Plt Count 178 Sodium 140 Potassium 4.1 Chloride 96 L Carbon Dioxide 26 Anion Gap 22 H BUN 30 H Creatinine 4.1 H Est GFR ( Amer) 17 Est GFR (Non-Af Amer) 14 POC Glucose (mg/dL) 178 H Random Glucose 167 H Calcium 9.0 Ferritin Lipase Vitamin B12 Folate Hepatitis A IgM Ab Hep Bs Antigen Hep B Core IgM Ab Hepatitis C Antibody Blood Type Blood Type Confirm Antibody Screen Crossmatch BBK History Checked 02/08/17 09:17 WBC RBC Hgb Hct MCV MCH MCHC RDW Plt Count Sodium Potassium Chloride Carbon Dioxide Anion Gap BUN Creatinine Est GFR ( Amer) Est GFR (Non-Af Amer) POC Glucose (mg/dL) Random Glucose Calcium Ferritin Lipase 26 Vitamin B12 Folate Hepatitis A IgM Ab Hep Bs Antigen Hep B Core IgM Ab Hepatitis C Antibody Blood Type Blood Type Confirm Antibody Screen Crossmatch BBK History Checked - Imaging and Cardiology CT scan - abdomen Status: Image reviewed by me, Report reviewed by me Assessment & Plan - Assessment and Plan (Free Text) Assessment: 76 y.o. male r/o cholecystitis Plan: - NPO - HIDA scan to r/o cholecystitis - Protonix - Repeat labs in am - Continue care as per primary team - Will follow
--- NOTE | 2017-02-08 12:24 | CP.PCM.PN ---
Subjective - Date & Time of Evaluation Date of Evaluation: 02/08/17 Time of Evaluation: 12:21 - Subjective Subjective: Patient complaining of just about everything Patient was transfused yesterday his hemoglobin 9.2 posttransfusion Patient scheduled to have multiple tests including bone scan perhaps and CT angiogram and the also HIDA scan because of the CAT scan suggestive of cholecystitis and suggestive of acute pancreatitis DC the detailed in addition of the fracture that has been reported in the pelvic. Chest clear no rales Heart no rubs Abdomen soft Extremity no edema The impression and plan Patient has ulcer of the right foot to rule out peripheral vascular disease see may be going for CT scanning with angiogram and he need dialysis to follow the angiogram Suggest orthopedic consult regarding the fracture of the pelvis on CT scan Patient is not cooperating easily very difficult need sugar control Continue monitoring Objective - Vital Signs/Intake and Output Vital Signs (last 24 hours): Temp Pulse Resp BP Pulse Ox 97.9 F 62 20 104/65 99 02/08/17 08:09 02/08/17 09:53 02/08/17 08:09 02/08/17 09:53 02/08/17 08:09 - Medications Medications: Current Medications Acetaminophen (Tylenol 325mg Tab) 650 mg PO Q6 PRN PRN Reason: Pain, moderate (4-7) Aspirin (Ecotrin) 81 mg PO DAILY [facility] Last Admin: 02/07/17 09:00 Dose: Not Given Atorvastatin Calcium (Lipitor) 10 mg PO HS [facility] Last Admin: 02/07/17 21:08 Dose: 10 mg Carvedilol (Coreg) 25 mg PO Q12H [facility] Last Admin: 02/08/17 05:00 Dose: 25 mg Heparin Sodium (Porcine) (Heparin) 5,000 units SC Q8 [facility] PRN Reason: Protocol Last Admin: 02/07/17 09:00 Dose: Not Given Vancomycin HCl 1 gm/ Sodium (Chloride) 250 mls @ 166.667 mls/hr IVPB DAILY [facility] Last Admin: 02/07/17 15:00 Dose: 166.667 mls/hr Piperacillin Sod/Tazobactam (Sod 2.25 gm/ Sodium Chloride) 100 mls @ 100 mls/ hr IVPB Q8 [facility] Last Admin: 02/08/17 09:49 Dose: 100 mls/hr Insulin Human Regular (Humulin R) 0 units SC ACHS [facility] PRN Reason: Protocol Last Admin: 02/08/17 06:44 Dose: 1 units Nifedipine (Procardia Xl) 60 mg PO DAILY [facility] Last Admin: 02/08/17 09:53 Dose: 60 mg Ondansetron HCl (Zofran Inj) 4 mg IVP Q6 PRN PRN Reason: Nausea/Vomiting Last Admin: 02/07/17 18:47 Dose: 4 mg Pantoprazole Sodium (Protonix Ec Tab) 40 mg PO DAILY [facility] Last Admin: 02/08/17 09:52 Dose: 40 mg Sevelamer HCl (Renagel) 2,400 mg PO TID [facility] Last Admin: 02/08/17 09:52 Dose: 2,400 mg Sitagliptin Phosphate (Januvia) 25 mg PO DAILY [facility] Last Admin: 02/08/17 09:53 Dose: 25 mg Tramadol HCl (Ultram) 50 mg PO Q8 PRN PRN Reason: Pain, severe (8-10) Last Admin: 02/08/17 06:58 Dose: 50 mg Vitamin B Complex/Vit C/Folic Acid (Nephro-Niko) 1 tab PO DAILY [facility] Last Admin: 02/08/17 09:52 Dose: 1 tab - Labs Labs: 02/08/17 05:55 02/08/17 05:55 PT 14.1 Seconds (9.8-13.1) H 02/07/17 06:05 INR 1.2 (0.9-1.2) 02/07/17 06:05 APTT 30.3 Seconds (25.6-37.1) 02/07/17 06:05 - Constitutional Appears: No Acute Distress - ENT Exam ENT Exam: Mucous Membranes Moist - Respiratory Exam Respiratory Exam: NORMAL BREATHING PATTERN. absent: Chest Wall Tenderness - GI/Abdominal Exam GI & Abdominal Exam: Normal Bowel Sounds - Extremities Exam Extremities Exam: absent: Calf Tenderness - Back Exam Back Exam: absent: CVA tenderness (L), CVA tenderness (R) - Neurological Exam Neurological Exam: Alert Assessment and Plan (1) Ulcer of foot Status: Chronic (2) CHF (congestive heart failure) Status: Chronic (3) ESRD (end stage renal disease) on dialysis Status: Chronic
[2017-02-08] MEDS ORDERED: Dextrose 5%/0.45% NS 1,000 ML IV SCH (13:00)
--- NOTE | 2017-02-08 13:23 | CP.PCM.CON ---
History of Present Illness - History of Present Illness History of Present Illness: 76 yo M with multiple comorbidities including CAD, CHF, htn, hypercholesteremia , ESRD (on HD MWF), DM and A-fib is admitted for right foot ulcer. Pt is currently being worked up for several acute conditions, including acute cholecystitis, acute pancreatitis, and vascular work-up. CT imaging of the abdomen/pelvis revealed left pelvic ring fx. Orthopaedics was consulted for evaluation and management of pelvic fx. Pt states he fell about 2 months ago, was seen in hospital and told he was ok, imaging was negative for any fx or dislocations. He states before the fall, he was renny to ambulate independently. However, since the fall he has limited and painful ambulation. He denies any paresthesia or motor weakness to left lower extremity. Past Patient History - Infectious Disease Hx of Infectious Diseases: None - Past Medical History & Family History Past Medical History?: Yes - Past Social History Smoking Status: Former Smoker - CARDIAC Hx Cardiac Disorders: Yes (CHF,HTN, afib,pacemaker,) - PULMONARY Hx Respiratory Disorders: Yes (pleural effusion) - HEENT Hx HEENT Problems: No - RENAL Hx Chronic Kidney Disease: Yes (ESRD) - ENDOCRINE/METABOLIC Hx Diabetes Mellitus Type 1: Yes - HEMATOLOGICAL/ONCOLOGICAL Hx Blood Disorders: No - INTEGUMENTARY Hx Dermatological Problems: No - MUSCULOSKELETAL/RHEUMATOLOGICAL Hx Falls: Yes - GASTROINTESTINAL Hx Gastrointestinal Disorders: No - GENITOURINARY/GYNECOLOGICAL Hx Genitourinary Disorders: No - PSYCHIATRIC Hx Psychophysiologic Disorder: No Hx Substance Use: No - SURGICAL HISTORY Hx Surgeries: Yes Hx Coronary Artery Bypass Graft: Yes Hx Coronary Stent: Yes - ANESTHESIA Hx Anesthesia: Yes Hx Anesthesia Reactions: No Meds Allergies/Adverse Reactions: Allergies Allergy/AdvReac Type Severity Reaction Status Date / Time No Known Allergies Allergy Verified 02/06/17 13:47 - Medications Medications: Current Medications Acetaminophen (Tylenol 325mg Tab) 650 mg PO Q6 PRN PRN Reason: Pain, moderate (4-7) Aspirin (Ecotrin) 81 mg PO DAILY [facility] Last Admin: 02/07/17 09:00 Dose: Not Given Atorvastatin Calcium (Lipitor) 10 mg PO HS [facility] Last Admin: 02/07/17 21:08 Dose: 10 mg Carvedilol (Coreg) 25 mg PO Q12H [facility] Last Admin: 02/08/17 05:00 Dose: 25 mg Heparin Sodium (Porcine) (Heparin) 5,000 units SC Q8 [facility] PRN Reason: Protocol Last Admin: 02/07/17 09:00 Dose: Not Given Vancomycin HCl 1 gm/ Sodium (Chloride) 250 mls @ 166.667 mls/hr IVPB DAILY [facility] Last Admin: 02/07/17 15:00 Dose: 166.667 mls/hr Piperacillin Sod/Tazobactam (Sod 2.25 gm/ Sodium Chloride) 100 mls @ 100 mls/ hr IVPB Q8 [facility] Last Admin: 02/08/17 09:49 Dose: 100 mls/hr Dextrose/Sodium Chloride (Dextrose 5%/0.45% Ns 1000 Ml) 1,000 mls @ 100 mls/hr IV .Q10H [facility] Stop: 02/09/17 12:51 Insulin Human Regular (Humulin R) 0 units SC ACHS [facility] PRN Reason: Protocol Last Admin: 02/08/17 06:44 Dose: 1 units Nifedipine (Procardia Xl) 60 mg PO DAILY [facility] Last Admin: 02/08/17 09:53 Dose: 60 mg Ondansetron HCl (Zofran Inj) 4 mg IVP Q6 PRN PRN Reason: Nausea/Vomiting Last Admin: 02/07/17 18:47 Dose: 4 mg Pantoprazole Sodium (Protonix Ec Tab) 40 mg PO DAILY [facility] Last Admin: 02/08/17 09:52 Dose: 40 mg Sevelamer HCl (Renagel) 2,400 mg PO TID [facility] Last Admin: 02/08/17 09:52 Dose: 2,400 mg Sitagliptin Phosphate (Januvia) 25 mg PO DAILY [facility] Last Admin: 02/08/17 09:53 Dose: 25 mg Tramadol HCl (Ultram) 50 mg PO Q8 PRN PRN Reason: Pain, severe (8-10) Last Admin: 02/08/17 06:58 Dose: 50 mg Vitamin B Complex/Vit C/Folic Acid (Nephro-Niko) 1 tab PO DAILY [facility] Last Admin: 02/08/17 09:52 Dose: 1 tab Physical Exam - Constitutional Appears: Well, No Acute Distress - Extremities Exam Additional comments: Pelvis/LLE: No TTP over ASIS or iliac crest, no ttp over greater trochanter or hip region Normal Active ROM at hip, knee and ankle, no pain with ROM Calves soft and nontender b/l Distal pulses weak, but palpable Results - Vital Signs Recent Vital Signs: Last Vital Signs Temp 97.9 F 02/08/17 08:09 Pulse 62 02/08/17 09:53 Resp 20 02/08/17 08:09 BP 104/65 02/08/17 09:53 Pulse Ox 99 02/08/17 08:09 - Labs Result Diagrams: 02/08/17 05:55 02/08/17 05:55 Labs: Laboratory Results - last 24 hr 02/07/17 02/07/17 02/07/17 09:31 10:13 15:15 WBC RBC Hgb Hct MCV MCH MCHC RDW Plt Count Sodium Potassium Chloride Carbon Dioxide Anion Gap BUN Creatinine Est GFR ( Amer) Est GFR (Non-Af Amer) POC Glucose (mg/dL) Random Glucose Calcium Lipase Folate > 20.0 Hepatitis A IgM Ab Negative Hep Bs Antigen Negative Hep B Core IgM Ab Negative Hepatitis C Antibody Negative Blood Type A NEGATIVE Antibody Screen Negative Crossmatch See Detail [facility]K History Checked No verified bt 02/07/17 02/08/17 02/08/17 21:32 05:55 05:55 WBC 15.6 H RBC 4.15 L Hgb 9.2 L Hct 30.6 L MCV 73.7 L MCH 22.2 L MCHC 30.1 L RDW 19.6 H Plt Count 178 Sodium 140 Potassium 4.1 Chloride 96 L Carbon Dioxide 26 Anion Gap 22 H BUN 30 H Creatinine 4.1 H Est GFR ( Amer) 17 Est GFR (Non-Af Amer) 14 POC Glucose (mg/dL) 154 H Random Glucose 167 H Calcium 9.0 Lipase Folate Hepatitis A IgM Ab Hep Bs Antigen Hep B Core IgM Ab Hepatitis C Antibody Blood Type Antibody Screen Crossmatch BBK History Checked 02/08/17 02/08/17 02/08/17 06:00 09:17 11:10 WBC RBC Hgb Hct MCV MCH MCHC RDW Plt Count Sodium Potassium Chloride Carbon Dioxide Anion Gap BUN Creatinine Est GFR ( Amer) Est GFR (Non-Af Amer) POC Glucose (mg/dL) 178 H 247 H Random Glucose Calcium Lipase 26 Folate Hepatitis A IgM Ab Hep Bs Antigen Hep B Core IgM Ab Hepatitis C Antibody Blood Type Antibody Screen Crossmatch BBK History Checked Assessment & Plan - Assessment and Plan (Free Text) Assessment: 76 yoM with several comorbidities presents with left pelvic ring fx after fall [address] imaging reveals Left pelvic ring fx Recommend: NWB LLE DVT ppx Xrays- AP pelvis and AP/lat left hip Continue current managment Pain control Discussed with Dr. Slaughter Will follow up
--- NOTE | 2017-02-08 13:43 | CP.PCM.PN ---
<Jhonny Deluca - Last Filed: 02/08/17 13:40> Subjective - Date & Time of Evaluation Date of Evaluation: 02/08/17 Time of Evaluation: 10:40 - Subjective Subjective: Patient seen and evaluated at bedside. No acute events overnight. No fever/ chills. Patient does not complain of abdominal pain, nausea, vomiting. Patient had CT scan of abdomen yesterday, noted acute cholecystitis/pancreatitis. Patient tolerating PO well. Patient scheduled for HD today. Objective - Vital Signs/Intake and Output Vital Signs (last 24 hours): Temp Pulse Resp BP Pulse Ox 97.9 F 62 20 104/65 99 02/08/17 08:09 02/08/17 09:53 02/08/17 08:09 02/08/17 09:53 02/08/17 08:09 - Medications Medications: Current Medications Acetaminophen (Tylenol 325mg Tab) 650 mg PO Q6 PRN PRN Reason: Pain, moderate (4-7) Aspirin (Ecotrin) 81 mg PO DAILY [facility] Last Admin: 02/07/17 09:00 Dose: Not Given Atorvastatin Calcium (Lipitor) 10 mg PO HS [facility] Last Admin: 02/07/17 21:08 Dose: 10 mg Carvedilol (Coreg) 25 mg PO Q12H [facility] Last Admin: 02/08/17 05:00 Dose: 25 mg Heparin Sodium (Porcine) (Heparin) 5,000 units SC Q8 [facility] PRN Reason: Protocol Last Admin: 02/07/17 09:00 Dose: Not Given Vancomycin HCl 1 gm/ Sodium (Chloride) 250 mls @ 166.667 mls/hr IVPB DAILY [facility] Last Admin: 02/07/17 15:00 Dose: 166.667 mls/hr Piperacillin Sod/Tazobactam (Sod 2.25 gm/ Sodium Chloride) 100 mls @ 100 mls/ hr IVPB Q8 [facility] Last Admin: 02/08/17 09:49 Dose: 100 mls/hr Dextrose/Sodium Chloride (Dextrose 5%/0.45% Ns 1000 Ml) 1,000 mls @ 100 mls/hr IV .Q10H [facility] Stop: 02/09/17 12:51 Insulin Human Regular (Humulin R) 0 units SC ACHS [facility] PRN Reason: Protocol Last Admin: 02/08/17 06:44 Dose: 1 units Nifedipine (Procardia Xl) 60 mg PO DAILY [facility] Last Admin: 02/08/17 09:53 Dose: 60 mg Ondansetron HCl (Zofran Inj) 4 mg IVP Q6 PRN PRN Reason: Nausea/Vomiting Last Admin: 02/07/17 18:47 Dose: 4 mg Pantoprazole Sodium (Protonix Ec Tab) 40 mg PO DAILY [facility] Last Admin: 02/08/17 09:52 Dose: 40 mg Sevelamer HCl (Renagel) 2,400 mg PO TID [facility] Last Admin: 02/08/17 09:52 Dose: 2,400 mg Sitagliptin Phosphate (Januvia) 25 mg PO DAILY [facility] Last Admin: 02/08/17 09:53 Dose: 25 mg Tramadol HCl (Ultram) 50 mg PO Q8 PRN PRN Reason: Pain, severe (8-10) Last Admin: 02/08/17 06:58 Dose: 50 mg Vitamin B Complex/Vit C/Folic Acid (Nephro-Niko) 1 tab PO DAILY [facility] Last Admin: 02/08/17 09:52 Dose: 1 tab - Labs Labs: 02/08/17 05:55 02/08/17 05:55 PT 14.1 Seconds (9.8-13.1) H 02/07/17 06:05 INR 1.2 (0.9-1.2) 02/07/17 06:05 APTT 30.3 Seconds (25.6-37.1) 02/07/17 06:05 - Constitutional Appears: Well, Non-toxic, No Acute Distress - Head Exam Head Exam: ATRAUMATIC, NORMAL INSPECTION, NORMOCEPHALIC - Eye Exam Eye Exam: Normal appearance - Neck Exam Neck Exam: Normal Inspection - Respiratory Exam Respiratory Exam: Clear to Ausculation Bilateral, NORMAL BREATHING PATTERN - Cardiovascular Exam Cardiovascular Exam: REGULAR RHYTHM, +S1, +S2. absent: Murmur - GI/Abdominal Exam GI & Abdominal Exam: Distended (mild), Soft, Normal Bowel Sounds. absent: Tenderness - Extremities Exam Extremities Exam: Normal Inspection Additional comments: right 1st/2nd toe with ulcerations - Neurological Exam Neurological Exam: Alert, Awake, Oriented x3 - Psychiatric Exam Psychiatric exam: Normal Affect, Normal Mood - Skin Skin Exam: Dry, Normal Color, Warm Assessment and Plan (1) Ulcer of foot Assessment & Plan: Right foot, 1st/2nd toe Circulatory cause? X rays of right foot show soft tissue swelling, cortical irregularity of 1st proximal phalanx labs reviewed; WBC 15.4, afebrile ID consulted, appreciate input wound cx pending f/u TUTU/PVR Podiatry consulted, appreciate recommendations Vascular consulted, appreciate recommendations For CTA with runoff of lower extremity today Status: Chronic (2) Abnormal abdominal CT scan Assessment & Plan: Noted acute cholecystitis/acute pancreatitis Asymptomatic Lipase normal WBC elevated Afebrile Will obtain GB/Pancreas sonogram Surgery consulted, appreciate recommendations GI consulted, appreciate recommendations Status: Acute (3) Pelvic ring fracture Assessment & Plan: Noted on CT scan of abdomen fall 2 months ago ortho consulted, appreciate input Status: Acute (4) Diabetes Assessment & Plan: Diabetic/renal diet Accuchecks ACHS c/w Insulin/Januvia Status: Chronic (5) ESRD (end stage renal disease) on dialysis Assessment & Plan: on HD (M/W/F) - today Renal consulted, appreciate input Renal diet c/w home meds Status: Chronic <Rocco Huff - Last Filed: 02/10/17 13:06> Objective - Vital Signs/Intake and Output Vital Signs (last 24 hours): Temp Pulse Resp BP Pulse Ox 98 F 73 15 132/51 L 99 02/10/17 08:00 02/10/17 10:00 02/10/17 10:00 02/10/17 10:00 02/10/17 10:00 Intake and Output: 02/10/17 02/10/17 06:59 18:59 Intake Total 446 599.83 Output Total 1500 1500 Balance -1054 -900.17 - Medications Medications: Current Medications Acetaminophen (Tylenol 325mg Tab) 650 mg PO Q6 PRN PRN Reason: Pain, moderate (4-7) Aspirin (Ecotrin) 81 mg PO DAILY [facility] Last Admin: 02/07/17 09:00 Dose: Not Given Atorvastatin Calcium (Lipitor) 10 mg PO HS [facility] Last Admin: 02/09/17 22:33 Dose: 10 mg Epoetin Avery (Procrit) 3,000 unit SC MWF [facility] Heparin Sodium (Porcine) (Heparin) 5,000 units SC Q8 [facility] PRN Reason: Protocol Last Admin: 02/07/17 09:00 Dose: Not Given Vancomycin HCl 1 gm/ Sodium (Chloride) 250 mls @ 166.667 mls/hr IVPB DAILY [facility] Last Admin: 02/10/17 09:00 Dose: 166.667 mls/hr Piperacillin Sod/Tazobactam (Sod 2.25 gm/ Sodium Chloride) 100 mls @ 100 mls/ hr IVPB Q8 [facility] Last Admin: 02/10/17 09:00 Dose: 100 mls/hr Norepinephrine Bitartrate 8 mg (/ Dextrose) 258 mls @ 9.67 mls/hr IV .Q24H ONE ; 5 MCG/MIN PRN Reason: Protocol Stop: 02/11/17 08:08 Last Titration: 02/10/17 10:00 Dose: 0 mcg/min, 0 mls/hr Insulin Human Regular (Humulin R) 0 units SC ACHS [facility] PRN Reason: Protocol Last Admin: 02/10/17 12:54 Dose: 3 units Ondansetron HCl (Zofran Inj) 4 mg IVP Q6 PRN PRN Reason: Nausea/Vomiting Last Admin: 02/07/17 18:47 Dose: 4 mg Pantoprazole Sodium (Protonix Ec Tab) 40 mg PO DAILY [facility] Last Admin: 02/10/17 08:58 Dose: 40 mg Sevelamer HCl (Renagel) 2,400 mg PO TID [facility] Last Admin: 02/10/17 12:54 Dose: 2,400 mg Sitagliptin Phosphate (Januvia) 25 mg PO DAILY [facility] Last Admin: 02/10/17 08:58 Dose: 25 mg Tramadol HCl (Ultram) 50 mg PO Q8 PRN PRN Reason: Pain, severe (8-10) Last Admin: 02/10/17 09:01 Dose: 50 mg Vitamin B Complex/Vit C/Folic Acid (Nephro-Niko) 1 tab PO DAILY [facility] Last Admin: 02/10/17 08:58 Dose: 1 tab - Labs Labs: 02/10/17 05:30 02/10/17 05:30 PT 14.1 Seconds (9.8-13.1) H 02/07/17 06:05 INR 1.2 (0.9-1.2) 02/07/17 06:05 APTT 30.3 Seconds (25.6-37.1) 02/07/17 06:05 Assessment and Plan - Assessment and Plan (Free Text) Plan: I was present during evaluation and discussed with Dr Deluca re plans of care. Rococ Huff M.D.
--- NOTE | 2017-02-08 13:50 | US ---
HISTORY: r/o cholecysitis/pancreatitis COMPARISON: None available. TECHNIQUE: Sonographic evaluation of the right upper quadrant of the abdomen. FINDINGS: Incidental note is made of right-sided pleural effusion. LIVER: Measures 15.1 heterogeneous uterine echotexture. Suspect focal fatty sparing. Mildly nodular hepatic contour. The main portal vein appears patent with normal directional flow. No intrahepatic bile duct dilatation. Mild to moderate abdominal ascites. GALLBLADDER: Evidence of gallstone within the gallbladder neck. 3 mm probable gallbladder polyp. Gallbladder wall thickening which measures approximately 5 mm. Negative sonographic Villalobos's sign as assessed by the monorail car operator, however Villalobos's sign could not be adequately assessed this patient received pain medications prior to imaging. COMMON BILE DUCT: Measures 6 mm. PANCREAS: Not well-visualized. Edematous changes within the pancreas best visualized on CT abdomen and pelvis performed 02/07/17 RIGHT KIDNEY: Measures 9.4 x 4.2 x 5.4 cm. No obstructing calculus or hydronephrosis identified. 3.2 cm upper pole and 1.3 cm midpole anechoic avascular rounded lesions compatible with renal cysts. AORTA: Limited visualization appears grossly unremarkable. IVC: Limited visualization appears grossly unremarkable. OTHER FINDINGS: None . IMPRESSION: Evidence of gallstone within the gallbladder neck. 3 mm probable gallbladder polyp. Gallbladder wall thickening which measures approximately 5 mm. Negative sonographic Villalobos's sign as assessed by the monorail car operator, however Villalobos's sign could not be adequately assessed this patient received pain medications prior to imaging. Correlate for acute cholecystitis. 3 mm probable gallbladder polyp. In the absence of risk factors for lung cancer, no specific imaging follow-up is required. If the patient is a smoker or has other risk factors, follow-up CT at 12 months is recommended to document stability. Right-sided pleural effusion. Mild to moderate ascites. Heterogeneous appearance of the liver with evidence of focal fatty sparing. Mildly nodular hepatic contour. Right renal cysts. Additional findings as above.
--- NOTE | 2017-02-08 14:08 | CP.PCM.PN ---
Subjective - Date & Time of Evaluation Date of Evaluation: 02/08/17 Time of Evaluation: 10:00 - Subjective Subjective: 76 y/o male with pmhx of Atrial Fibrillation, CAD, CHF, HTN, Hypercholesterolemia, End Stage Renal Disease (MWF), Chronic Kidney Disease ( ESRD) seen at bedside in the ED for right foot ulceration and necrotic wounds. Patient states that he has had the ulceration on his 2nd toe of the right foot for 2 months but noticed pain for 1 day. Patient had dialysis this morning and decided to come to the ED after because the pain was intolerable. Patient denies any recent trauma or injury to his right foot. He denies any n/f/v/c/d/ sob. referred for id eval for antibiotic management Objective - Vital Signs/Intake and Output Vital Signs (last 24 hours): Temp Pulse Resp BP Pulse Ox 97.9 F 62 20 104/65 99 02/08/17 08:09 02/08/17 09:53 02/08/17 08:09 02/08/17 09:53 02/08/17 08:09 - Medications Medications: Current Medications Acetaminophen (Tylenol 325mg Tab) 650 mg PO Q6 PRN PRN Reason: Pain, moderate (4-7) Aspirin (Ecotrin) 81 mg PO DAILY [facility] Last Admin: 02/07/17 09:00 Dose: Not Given Atorvastatin Calcium (Lipitor) 10 mg PO HS [facility] Last Admin: 02/07/17 21:08 Dose: 10 mg Carvedilol (Coreg) 25 mg PO Q12H [facility] Last Admin: 02/08/17 05:00 Dose: 25 mg Heparin Sodium (Porcine) (Heparin) 5,000 units SC Q8 [facility] PRN Reason: Protocol Last Admin: 02/07/17 09:00 Dose: Not Given Vancomycin HCl 1 gm/ Sodium (Chloride) 250 mls @ 166.667 mls/hr IVPB DAILY [facility] Last Admin: 02/08/17 14:01 Dose: 166.667 mls/hr Piperacillin Sod/Tazobactam (Sod 2.25 gm/ Sodium Chloride) 100 mls @ 100 mls/ hr IVPB Q8 [facility] Last Admin: 02/08/17 09:49 Dose: 100 mls/hr Dextrose/Sodium Chloride (Dextrose 5%/0.45% Ns 1000 Ml) 1,000 mls @ 100 mls/hr IV .Q10H [facility] Stop: 02/09/17 12:51 Insulin Human Regular (Humulin R) 0 units SC ACHS [facility] PRN Reason: Protocol Last Admin: 02/08/17 06:44 Dose: 1 units Nifedipine (Procardia Xl) 60 mg PO DAILY [facility] Last Admin: 02/08/17 09:53 Dose: 60 mg Ondansetron HCl (Zofran Inj) 4 mg IVP Q6 PRN PRN Reason: Nausea/Vomiting Last Admin: 02/07/17 18:47 Dose: 4 mg Pantoprazole Sodium (Protonix Ec Tab) 40 mg PO DAILY [facility] Last Admin: 02/08/17 09:52 Dose: 40 mg Sevelamer HCl (Renagel) 2,400 mg PO TID [facility] Last Admin: 02/08/17 14:01 Dose: Not Given Sitagliptin Phosphate (Januvia) 25 mg PO DAILY [facility] Last Admin: 02/08/17 09:53 Dose: 25 mg Tramadol HCl (Ultram) 50 mg PO Q8 PRN PRN Reason: Pain, severe (8-10) Last Admin: 02/08/17 13:58 Dose: 50 mg Vitamin B Complex/Vit C/Folic Acid (Nephro-Niko) 1 tab PO DAILY [facility] Last Admin: 02/08/17 09:52 Dose: 1 tab - Labs Labs: 02/08/17 05:55 02/08/17 05:55 PT 14.1 Seconds (9.8-13.1) H 02/07/17 06:05 INR 1.2 (0.9-1.2) 02/07/17 06:05 APTT 30.3 Seconds (25.6-37.1) 02/07/17 06:05 - Constitutional Appears: Non-toxic, Cachectic, Chronically Ill - Head Exam Head Exam: NORMOCEPHALIC - Eye Exam Eye Exam: PERRL. absent: Scleral icterus - ENT Exam ENT Exam: Mucous Membranes Dry, Normal External Ear Exam - Neck Exam Neck Exam: absent: Lymphadenopathy - Respiratory Exam Respiratory Exam: Decreased Breath Sounds, Clear to Ausculation Bilateral - Cardiovascular Exam Cardiovascular Exam: REGULAR RHYTHM, +S1, +S2 - GI/Abdominal Exam GI & Abdominal Exam: Distended, Soft. absent: Tenderness - Rectal Exam Rectal Exam: Deferred - Exam Exam: NORMAL INSPECTION - Extremities Exam Extremities Exam: absent: Pedal Edema - Back Exam Back Exam: absent: CVA tenderness (L), CVA tenderness (R) - Neurological Exam Neurological Exam: Alert, Awake, Oriented x3 - Skin Skin Exam: Dry Additional comments: wounds noted right foot suspect vascular issues cultures noted Assessment and Plan (1) Ulcer of foot Status: Chronic (2) ESRD (end stage renal disease) Status: Acute (3) CHF (congestive heart failure) Status: Chronic (4) Diabetes Status: Chronic
--- NOTE | 2017-02-08 14:32 | CARD ---
APPROVED REPORT EKG Measurement Heart [id number] DC 144P [id number] <Conclusion> Atrial-sensed ventricular-paced rhythm Abnormal ECG
--- NOTE | 2017-02-08 14:45 | NM ---
PROCEDURE: Nuclear Medicine Hepatobiliary Scan HISTORY: r/o cholecystitis COMPARISON: February 07, 2017. CT abdomen and pelvis TECHNIQUE: 5.2 mCi of technetium 99m Mebrofenin was administered intravenously. Planar images of the abdomen were obtained at 5 min intervals to 60 mins. Delayed images were also obtained. FINDINGS: LIVER: Timely and homogenous uptake. COMMON BILE DUCT: identified at 10 mins. GALLBLADDER: identified at 30 mins. SMALL BOWEL: Identified at 10 mins. IMPRESSION: Normal Hepatobiliary Scan. The cystic duct is patent.
[2017-02-08] MEDS ORDERED: Sodium Chloride 0.9% 100 ML ONE (16:11)
[2017-02-08] MEDS ORDERED: Iodixanol 320 MG/ML 100 ML BOTTLE IV ONE (16:11)
--- NOTE | 2017-02-08 16:50 | PCM.RRTMUL ---
<Kile Perez - Last Filed: 02/08/17 17:08> FRONT OFFICE SPECIALIST Nurse Assessment - Vital Signs Blood Pressure:: 104/65 Pulse Rate:: 62 - A) Initial Vital Signs: Blood Pressure: 138/102 Pulse Rate: 61 Respiratory Rate: 21 Finger Stick Blood Glucose: 266 - B) Neurological Status (Select all that apply): Alert, Responsive, Oriented, Verbal, Follows Commands - Constitutional Appears: No Acute Distress - Head Head Exam: ATRAUMATIC, NORMAL INSPECTION, NORMOCEPHALIC - Eyes Eye Exam: EOMI, PERRL - Respiratory Exam Respiratory Exam: Clear to Ausculation Bilateral, NORMAL BREATHING PATTERN. absent: Rales, Rhonchi, Wheezes - Cardiovascular Exam Cardiovascular Exam: REGULAR RHYTHM, +S1, +S2. absent: Murmur - GI/Abdominal Exam GI & Abdominal Exam: absent: Tenderness, Rebound - Neurological Exam Neurological Exam: Alert, Awake Additional exam: Moving all extremities - Extremities Exam Extremities Exam: absent: Pedal Edema Plan - B. Assessment of Findings&Treatment Plan FRONT OFFICE SPECIALIST called for 76 y/o M due near syncope during CT scan. Patient was getting ready for CT angio of the lower extremity when nurse noted patient appeared as though he was going to pass out. On responder arrival, patient is awake and verbal and is able to follow commands. When asked, patient did not recall details of what happened. He reports nausea but denies chest pain, sob, abdominal pain or focal weakness. He has been NPO and has not eaten since yesterday evening. Accucheck performed during FRONT OFFICE SPECIALIST: 266 EKG reveals ventricular paced rhythm with no acute changes 250ml NS bolus IV started Zofran 4mg administered CT head ordered Patient will be transferred to telemetry for monitoring Resident made aware Will follow results <Suzanna Ascencio - Last Filed: 02/10/17 15:45> Attending/Attestation - Attestation I have personally seen and examined this patient.: Yes I have fully participated in the care of the patient.: Yes I have reviewed all pertinent clinical information, including history, physical exam and plan: Yes Notes (Text): FRONT OFFICE SPECIALIST called while pt was in CT scan. Report that pt appeared to pass out for a few secons just prior to CT. Pt has no recollection of what happened. He reports nausea and feeling tired, but no other complaints. He has not eaten all day due to multiple diagnostics during the day. Initial BP wnl but mucus membranes dry. IVF ordered and patient transferred to to continue syncope workup. CT head ordered. DW Dr Huff.
--- NOTE | 2017-02-08 17:14 | CT ---
PROCEDURE: CT HEAD WITHOUT CONTRAST. HISTORY: DIZZINESS HEADACHE COMPARISON: Noncontrast head CT performed 12/21/16 TECHNIQUE: Axial computed tomography images were obtained through the head/brain without intravenous contrast. Radiation dose: Total exam DLP = 862.37 mGy-cm. This CT exam was performed using one or more of the following dose reduction techniques: Automated exposure control, adjustment of the mA and/or kV according to patient size, and/or use of iterative reconstruction technique. FINDINGS: HEMORRHAGE: No intracranial hemorrhage. BRAIN: Diffuse atrophy with prominence of the ventricles and sulci noted. No mass effect or edema. Intracranial vascular calcifications. Scattered periventricular and subcortical white matter hypodensities, which are nonspecific, but often seen with chronic microvascular ischemic disease. 3 mm left thalamus lacunar infarct. Please note that MRI with diffusion imaging is more sensitive in the detection of acute ischemic event. VENTRICLES: No hydrocephalus. CALVARIUM: Unremarkable. PARANASAL SINUSES: Unremarkable as visualized. No significant inflammatory changes. MASTOID AIR CELLS: Unremarkable as visualized. No inflammatory changes. OTHER FINDINGS: None. IMPRESSION: Nonspecific white matter changes. 3 mm left thalamus lacunar infarct.Please note that MRI with diffusion imaging is more sensitive in the detection of acute ischemic event.
[2017-02-08 18:31] LABS: ABG ALLEN TEST YES; ARTERIAL BLOOD GAS HCO3 23.9 mmol/L (21-28); ARTERIAL BLOOD GAS O2 CAPACITY 13.1 mL/dL (16-24); ARTERIAL BLOOD GAS O2 CONTENT 11.2 ML/dL (15-23); ARTERIAL BLOOD GAS PH 7.31 (7.35-7.45); ARTERIAL BLOOD GAS PO2 50 mm/Hg (80-100); ARTERIAL BLOOD HGB O2 SAT 81.3 % (95.0-98.0); CARBOXYHEMOGLOBIN 2.2 % (0.5-1.5); METHEMOGLOBIN 2.5 % (0.0-3.0)
--- NOTE | 2017-02-08 20:47 | PCM.RRTMUL ---
AQUARIUM SPECIALIST Nurse Assessment - Situation AQUARIUM SPECIALIST Responder Arrival Time:: 17:56 Location:: Room Number:: 405-2 AQUARIUM SPECIALIST Reason for Call: Hypotension, O2 Saturation below 90% AQUARIUM SPECIALIST Called By: RN, Physician, Other Disciplines, Patient/Family Request - IV IV Inserted during AQUARIUM SPECIALIST?: No - Respiratory Oxygen Delivery Method:: Mask Received Nebulizer Treatments:: No Was the Patient Ventilated with Bag/Mask 100% O2?: No Secretions Suctioned?: No Was the Patient Intubated?: No Was the Patient Placed on a Ventilator?: No - Ventilator Settings FIO2 (% Oxygen):: 100 - Diagnostic Test Ordered EKG:: No Chest X-Ray:: No CT Scan:: No CPR started during AQUARIUM SPECIALIST?: No - Vital Signs Pulse Rate:: 82 - Dior Coma Scale Coma Scale Eye Opening:: Spontaneous Coma Scale Motor:: Obeys Commands Movement Coma Scale Verbal:: Oriented Coma Scale Total:: 15 - Sepsis Screen Part 1 Sepsis Screen Part 1: Hypotensive - Time AQUARIUM SPECIALIST Ended Time AQUARIUM SPECIALIST Ended:: 18:30 - Vital Signs at end of AQUARIUM SPECIALIST Blood Pressure:: 95/40 Pulse Rate:: 80 Respiratory Rate:: 20 O2 Sat by Pulse Oximetry:: 95 - Recommendations 5) AQUARIUM SPECIALIST Level of Care Recommendations: Remain in current setting 6) Notifications: Attending Physician, Family or Designated Caregiver I.Reason for AQUARIUM SPECIALIST - A) Acute Change in Patient: (Select all that apply): Acute change in SBP below (90) Subjective: CC: Hypotension 76M denies chest pain, SOB, but experiencing some dizziness. - A) Initial Vital Signs: Blood Pressure: 79/39 Pulse Rate: 60 O2 Sat by Pulse Oximetry: 83 - B) Neurological Status (Select all that apply): Alert, Responsive, Verbal, Follows Commands - C) Respiratory Oxygen Delivery Method: Non Rebreather @% - Constitutional Appears: No Acute Distress, Chronically Ill - Head Head Exam: ATRAUMATIC, NORMAL INSPECTION - Respiratory Exam Respiratory Exam: NORMAL BREATHING PATTERN. absent: Rales, Rhonchi, Wheezes, Respiratory Distress - Cardiovascular Exam Cardiovascular Exam: REGULAR RHYTHM (PACED). absent: JVD - GI/Abdominal Exam GI & Abdominal Exam: Soft, Normal Bowel Sounds. absent: Tenderness - Neurological Exam Neurological Exam: Awake - Extremities Exam Extremities Exam: absent: Pedal Edema, Tenderness Plan - A. End of AQUARIUM SPECIALIST Vital Signs: Blood Pressure: 95/40 Pulse Rate: 80 Respiratory Rate: 18 O2 Sat by Pulse Oximetry: 95 (on Venti MAsk) Finger Stick Blood Glucose: 266 - B. Assessment of Findings&Treatment Plan 76M with persistent hypotension despite fluid resuscitation/trendelenburg with concomitant hypoxia verified by ABG. Given current work-up for RLE great toe infection and underlying co-morbidities ddx sepsis vs. PE vs. heart failure ( though less likely). Therefore, the decision to transfer to ICU for further work-up. - Transfer to ICU - 250mL NS bolus x1 - BiPAP - RIGHT IJ - Levophed - Shock Panel (lactate- 1.0) - Dr Huff notified by text - case d/w Dr Eduardo Cooper
--- NOTE | 2017-02-08 20:50 | PCM.PROC ---
Procedures Attestation:: I certify that I have explained the specified Operation(s) or Procedure(s), risks, benefits and reasonable alternatives to the Patient and/or other person responsible. The opportunity was given to ask questions and all questions answered - Central Line Placement Right Internal Jugular Triple Lumen Catheter Aseptic technique was employed throughout the procedure: Hand Hygiene done prior to procedure, Full sterile barriers (mask, hair cover, sterile gown, sterile gloves), Full body sterile drape, Chloraprep Antiseptic: 30 second prep for IJ or SC sites CVP Time Out Performed: Yes Pt. Placed on Pulse Ox Monitor: Yes Central Line Prep: Chlorhexidine-Alcohol Combination Local Anesthesia Used: Lidocaine 1% Amount of Anesthesia Used (mls): 1 Ultrasound Used for Placement: Yes Central Line Lumen Inserted: triple Central Line Length: 16 cm (15cm) Post Procedure: Sutured in Place, Good Blood Return, All Ports Aspirated, Flushed, Capped, Sterile Dressing Applied Secured by: Suture (As well as securement device) Post procedure dressing: Clear vapor permeable, Chlorhexidine disc (Biopatch) Post Procedure X-Ray: Yes Patient Tolerated Procedure: Well, No Complications Immediate Complications: None
[2017-02-08 21:14] LABS: CALCIUM 8.6 mg/dL (8.4-10.2); POTASSIUM 4.6 MMOL/L (3.6-5.0)
[2017-02-09 06:21] LABS: BASO # 0.1 K/uL (0.0-0.2); BASO % 0.5 % (0.0-2.0); EOS % 0.2 % (0.0-4.0); HEMATOCRIT 32.4 % (35.0-51.0); LYMPH % 5.7 % (20.0-40.0); MEAN CELL VOLUME 74.6 fl (80.0-94.0); MEAN CORPUSCULAR HEMOGLOBIN 22.2 pg (27.0-31.0); MEAN CORPUSCULAR HGB CONC 29.8 g/dL (33.0-37.0); MEAN PLATELET VOLUME 9.4 fl (7.2-11.7); MONO # 2.1 K/uL (0.0-0.8); MONO % 11.2 % (0.0-10.0); NEUT # 15.2 K/uL (1.8-7.0); NEUT % 82.4 % (50.0-75.0); NRBC % 0.3 % (0.0-0.0); RED CELL DISTRIBUTION WIDTH 20.2 % (11.5-14.5); WHITE BLOOD COUNT 18.4 K/uL (4.8-10.8)
[2017-02-09] MEDS: Insulin Regular 100 units/ml SC SCH ×4 (06:31→22:31)
[2017-02-09 06:37] LABS: ALB/GLOB RATIO 1.1 (1.0-2.1); BILIRUBIN,TOTAL 0.7 mg/dl (0.2-1.3); CALCIUM 8.7 mg/dL (8.4-10.2); POTASSIUM 4.7 MMOL/L (3.6-5.0); TOTAL PROTEIN 7.2 G/DL (6.3-8.2)
--- NOTE | 2017-02-09 07:44 | CP.PCM.PN ---
<Shun Arguello - Last Filed: 02/09/17 12:04> Subjective - Date & Time of Evaluation Date of Evaluation: 02/09/17 Time of Evaluation: 07:00 - Subjective Subjective: SURGERY NOTE FOR DR. PRYOR 76M seen and examined at bedside. Patient denies abdominal pain, denies nausea/ vomiting. Currently on biPaP. Objective - Vital Signs/Intake and Output Vital Signs (last 24 hours): Temp Pulse Resp BP Pulse Ox 96.8 F L 60 21 120/72 95 02/09/17 04:00 02/09/17 07:00 02/09/17 07:00 02/09/17 07:00 02/09/17 07:00 Intake and Output: 02/09/17 02/09/17 06:59 18:59 Intake Total 840 10 Output Total 0 Balance 840 10 - Medications Medications: Current Medications Acetaminophen (Tylenol 325mg Tab) 650 mg PO Q6 PRN PRN Reason: Pain, moderate (4-7) Aspirin (Ecotrin) 81 mg PO DAILY [facility] Last Admin: 02/07/17 09:00 Dose: Not Given Atorvastatin Calcium (Lipitor) 10 mg PO HS [facility] Last Admin: 02/08/17 22:15 Dose: 10 mg Heparin Sodium (Porcine) (Heparin) 5,000 units SC Q8 [facility] PRN Reason: Protocol Last Admin: 02/07/17 09:00 Dose: Not Given Vancomycin HCl 1 gm/ Sodium (Chloride) 250 mls @ 166.667 mls/hr IVPB DAILY [facility] Last Admin: 02/08/17 14:01 Dose: 166.667 mls/hr Piperacillin Sod/Tazobactam (Sod 2.25 gm/ Sodium Chloride) 100 mls @ 100 mls/ hr IVPB Q8 [facility] Last Admin: 02/09/17 03:30 Dose: 100 mls/hr Norepinephrine Bitartrate 8 mg (/ Dextrose) 258 mls @ 15.48 mls/hr IV .[id number] ONE; 8 MCG/MIN PRN Reason: Protocol Stop: 02/09/17 11:39 Last Titration: 02/09/17 07:02 Dose: 5.5 mcg/min, 10.64 mls/hr Insulin Human Regular (Humulin R) 0 units SC ACHS [facility] PRN Reason: Protocol Last Admin: 02/09/17 06:31 Dose: 4 units Ondansetron HCl (Zofran Inj) 4 mg IVP Q6 PRN PRN Reason: Nausea/Vomiting Last Admin: 02/07/17 18:47 Dose: 4 mg Pantoprazole Sodium (Protonix Ec Tab) 40 mg PO DAILY [facility] Last Admin: 02/08/17 09:52 Dose: 40 mg Sevelamer HCl (Renagel) 2,400 mg PO TID [facility] Last Admin: 02/08/17 14:01 Dose: Not Given Sitagliptin Phosphate (Januvia) 25 mg PO DAILY [facility] Last Admin: 02/08/17 09:53 Dose: 25 mg Tramadol HCl (Ultram) 50 mg PO Q8 PRN PRN Reason: Pain, severe (8-10) Last Admin: 02/08/17 13:58 Dose: 50 mg Vitamin B Complex/Vit C/Folic Acid (Nephro-Niko) 1 tab PO DAILY [facility] Last Admin: 02/08/17 09:52 Dose: 1 tab - Labs Labs: 02/09/17 05:30 02/09/17 05:30 PT 14.1 Seconds (9.8-13.1) H 02/07/17 06:05 INR 1.2 (0.9-1.2) 02/07/17 06:05 APTT 30.3 Seconds (25.6-37.1) 02/07/17 06:05 - Constitutional Appears: Non-toxic, No Acute Distress - Head Exam Head Exam: ATRAUMATIC - Respiratory Exam Respiratory Exam: Clear to Ausculation Bilateral, NORMAL BREATHING PATTERN - Cardiovascular Exam Cardiovascular Exam: REGULAR RHYTHM, +S1, +S2 - GI/Abdominal Exam GI & Abdominal Exam: Soft. absent: Distended, Firm, Guarding, Rigid, Tenderness , Rebound - Neurological Exam Neurological Exam: Awake Assessment and Plan - Assessment and Plan (Free Text) Assessment: 76M consulted for r/o cholecystitic - HIDA results were normal. - No surgical intervention for gallbladder Further recs discuss with Dr. Roya Arguello, PGY1 <Harinder Pryor - Last Filed: 02/09/17 17:09> Subjective - Date & Time of Evaluation Time of Evaluation: 17:05 - Subjective Subjective: Patient was seen and examined at the bedside. Agree with resident's note above. Denies any abdominal pain, no nausea, no vomiting. Objective - Vital Signs/Intake and Output Vital Signs (last 24 hours): Temp Pulse Resp BP Pulse Ox 97.8 F 61 16 127/60 97 02/09/17 16:00 02/09/17 16:03 02/09/17 16:00 02/09/17 16:00 02/09/17 16:00 Intake and Output: 02/09/17 02/09/17 06:59 18:59 Intake Total 840 868 Output Total 0 Balance 840 868 - Medications Medications: Current Medications Acetaminophen (Tylenol 325mg Tab) 650 mg PO Q6 PRN PRN Reason: Pain, moderate (4-7) Aspirin (Ecotrin) 81 mg PO DAILY [facility] Last Admin: 02/07/17 09:00 Dose: Not Given Atorvastatin Calcium (Lipitor) 10 mg PO HS [facility] Last Admin: 02/08/17 22:15 Dose: 10 mg Epoetin Avery (Procrit) 3,000 unit SC MWF [facility] Heparin Sodium (Porcine) (Heparin) 5,000 units SC Q8 [facility] PRN Reason: Protocol Last Admin: 02/07/17 09:00 Dose: Not Given Vancomycin HCl 1 gm/ Sodium (Chloride) 250 mls @ 166.667 mls/hr IVPB DAILY [facility] Last Admin: 02/09/17 08:49 Dose: 166.667 mls/hr Piperacillin Sod/Tazobactam (Sod 2.25 gm/ Sodium Chloride) 100 mls @ 100 mls/ hr IVPB Q8 [facility] Last Admin: 02/09/17 16:30 Dose: 100 mls/hr Insulin Human Regular (Humulin R) 0 units SC ACHS [facility] PRN Reason: Protocol Last Admin: 02/09/17 16:22 Dose: 4 units Ondansetron HCl (Zofran Inj) 4 mg IVP Q6 PRN PRN Reason: Nausea/Vomiting Last Admin: 02/07/17 18:47 Dose: 4 mg Pantoprazole Sodium (Protonix Ec Tab) 40 mg PO DAILY [facility] Last Admin: 02/09/17 08:09 Dose: 40 mg Sevelamer HCl (Renagel) 2,400 mg PO TID [facility] Last Admin: 02/09/17 16:24 Dose: 2,400 mg Sitagliptin Phosphate (Januvia) 25 mg PO DAILY [facility] Last Admin: 02/09/17 08:10 Dose: 25 mg Tramadol HCl (Ultram) 50 mg PO Q8 PRN PRN Reason: Pain, severe (8-10) Last Admin: 02/08/17 13:58 Dose: 50 mg Vitamin B Complex/Vit C/Folic Acid (Nephro-Niko) 1 tab PO DAILY [facility] Last Admin: 02/09/17 08:10 Dose: 1 tab - Labs Labs: 02/09/17 05:30 02/09/17 05:30 PT 14.1 Seconds (9.8-13.1) H 02/07/17 06:05 INR 1.2 (0.9-1.2) 02/07/17 06:05 APTT 30.3 Seconds (25.6-37.1) 02/07/17 06:05 Assessment and Plan - Assessment and Plan (Free Text) Plan: - HIDA results negative for cholecystitis - No general surgery intervention at present time - Continue care as per ICU and medical teams - General surgery will sign off - Please re-consult as needed
--- NOTE | 2017-02-09 07:45 | CP.PCM.PN ---
Subjective - Date & Time of Evaluation Date of Evaluation: 02/09/17 Time of Evaluation: 07:30 - Subjective Subjective: PODIATRY PROGRESS NOTE for DR. LEBRON: 76 y/o male seen at bedside in ICU with Dr. Lebron for f/u of right hallux and right 2nd digit ulceration. Pt seen resting comfortably in bed at time of visit with BIPAP mask. Of note, [employer] was called yesterday evening due to hypotensive episode prior to lower ext CT. Pt was transferred to ICU for close monitoring. Nursing reports no acute events overnight. Pt does complain of moderate pain to the left foot today, denies calf pain. Denies f/n/v/c/cp. Objective - Vital Signs/Intake and Output Vital Signs (last 24 hours): Temp Pulse Resp BP Pulse Ox 96.8 F L 60 21 120/72 95 02/09/17 04:00 02/09/17 07:00 02/09/17 07:00 02/09/17 07:00 02/09/17 07:00 Intake and Output: 02/09/17 02/09/17 06:59 18:59 Intake Total 840 10 Output Total 0 Balance 840 10 - Medications Medications: Current Medications Acetaminophen (Tylenol 325mg Tab) 650 mg PO Q6 PRN PRN Reason: Pain, moderate (4-7) Aspirin (Ecotrin) 81 mg PO DAILY [facility] Last Admin: 02/07/17 09:00 Dose: Not Given Atorvastatin Calcium (Lipitor) 10 mg PO HS [facility] Last Admin: 02/08/17 22:15 Dose: 10 mg Heparin Sodium (Porcine) (Heparin) 5,000 units SC Q8 [facility] PRN Reason: Protocol Last Admin: 02/07/17 09:00 Dose: Not Given Vancomycin HCl 1 gm/ Sodium (Chloride) 250 mls @ 166.667 mls/hr IVPB DAILY [facility] Last Admin: 02/08/17 14:01 Dose: 166.667 mls/hr Piperacillin Sod/Tazobactam (Sod 2.25 gm/ Sodium Chloride) 100 mls @ 100 mls/ hr IVPB Q8 [facility] Last Admin: 02/09/17 03:30 Dose: 100 mls/hr Norepinephrine Bitartrate 8 mg (/ Dextrose) 258 mls @ 15.48 mls/hr IV .[id number] ONE; 8 MCG/MIN PRN Reason: Protocol Stop: 02/09/17 11:39 Last Titration: 02/09/17 07:02 Dose: 5.5 mcg/min, 10.64 mls/hr Insulin Human Regular (Humulin R) 0 units SC ACHS [facility] PRN Reason: Protocol Last Admin: 02/09/17 06:31 Dose: 4 units Ondansetron HCl (Zofran Inj) 4 mg IVP Q6 PRN PRN Reason: Nausea/Vomiting Last Admin: 02/07/17 18:47 Dose: 4 mg Pantoprazole Sodium (Protonix Ec Tab) 40 mg PO DAILY [facility] Last Admin: 02/08/17 09:52 Dose: 40 mg Sevelamer HCl (Renagel) 2,400 mg PO TID [facility] Last Admin: 02/08/17 14:01 Dose: Not Given Sitagliptin Phosphate (Januvia) 25 mg PO DAILY [facility] Last Admin: 02/08/17 09:53 Dose: 25 mg Tramadol HCl (Ultram) 50 mg PO Q8 PRN PRN Reason: Pain, severe (8-10) Last Admin: 02/08/17 13:58 Dose: 50 mg Vitamin B Complex/Vit C/Folic Acid (Nephro-Niko) 1 tab PO DAILY [facility] Last Admin: 02/08/17 09:52 Dose: 1 tab - Labs Labs: 02/09/17 05:30 02/09/17 05:30 PT 14.1 Seconds (9.8-13.1) H 02/07/17 06:05 INR 1.2 (0.9-1.2) 02/07/17 06:05 APTT 30.3 Seconds (25.6-37.1) 02/07/17 06:05 - Constitutional Appears: Non-toxic, No Acute Distress - Extremities Exam Extremities Exam: absent: Calf Tenderness Additional comments: Right foot focused: VASC: DP/PT pulses are non palpable, TG: warm to cool, 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: < 4 sec to all digits, mild edema noted on the 1st and 2nd digit DERM: mild edema and erythema noted to the 1st and 2nd digit, open wound noted on the medial aspect of the 2nd digit with fibrogranular base and fibrotic border, no active drainage, no probe to bone, no malodor, no ascending cellulitis, necrotic eschar noted to medial hallux and dorsal hallucal nail NEURO: Grossly intact ORTHO: pain on palpation of the 1st and 2nd digit of the right foot - Neurological Exam Neurological Exam: Alert, Awake, Oriented x3 - Psychiatric Exam Psychiatric exam: Normal Affect, Normal Mood Assessment and Plan - Assessment and Plan (Free Text) Assessment: 76 y/o male seen at bedside for R hallux necrotic wound, 2nd digit ulceration secondary to diabetes and PAD Plan: Pt S&E at bedside with Dr. Lebron present Chart labs and vitals reviewed: WBC trending up 18.4 today (up from 15.6) Low ext vascular studies are pending: TUTU/PVR, CT angiogram Prevalon offloading boots to be applied to feet bl all times while in bed Bone scan right foot pending (r/o OM) Per ortho, patient is to be toe touch weight bearing to the left low ext Podiatry will follow
--- NOTE | 2017-02-09 08:02 | RAD ---
HISTORY: Central Line Insertion COMPARISON: No prior. FINDINGS: LUNGS: Stable right lower lobe infiltrate and effusion. PLEURA: No significant pleural effusion identified, no pneumothorax apparent. CARDIOVASCULAR: Normal. OSSEOUS STRUCTURES: No significant abnormalities. VISUALIZED UPPER ABDOMEN: Normal. OTHER FINDINGS: Right CVP line with tip overlying the SVC. IMPRESSION: As above.
[2017-02-09] MEDS: Pantoprazole 40 mg EC Tab PO SCH (08:09)
[2017-02-09] MEDS: Multivitamin Vitamin B Complex (Nephro-Vite) Tab PO SCH (08:10)
--- NOTE | 2017-02-09 08:20 | RAD ---
HISTORY: pain COMPARISON: No prior FINDINGS: BONES: Normal. No fracture. JOINTS: Normal. No osteoarthritis. SOFT TISSUE: Normal. OTHER FINDINGS: Vascular calcifications. Oral contrast in the bowel.. IMPRESSION: Normal Bone Xray.
[2017-02-09] MEDS ORDERED: Epoetin Alfa 20000 UNIT/ML Inj SC SCH (09:00)
--- NOTE | 2017-02-09 09:11 | CP.PCM.PN ---
Subjective - Date & Time of Evaluation Date of Evaluation: 02/09/17 Time of Evaluation: 07:30 - Subjective Subjective: ORTHO PROGRESS NOTE DR. SLAUGHTER: 76 yo male patient S&E at bedside today for f/u of left pelvic fx. Pt seen resting comfortably in bed at time of visit with BIPAP mask. Pt deneis any pain or discomfort to the hip at this time. Objective - Vital Signs/Intake and Output Vital Signs (last 24 hours): Temp Pulse Resp BP Pulse Ox 96.8 F L 60 21 120/72 95 02/09/17 04:00 02/09/17 07:00 02/09/17 07:00 02/09/17 07:00 02/09/17 07:00 Intake and Output: 02/09/17 02/09/17 06:59 18:59 Intake Total 840 10 Output Total 0 Balance 840 10 - Medications Medications: Current Medications Acetaminophen (Tylenol 325mg Tab) 650 mg PO Q6 PRN PRN Reason: Pain, moderate (4-7) Aspirin (Ecotrin) 81 mg PO DAILY [facility] Last Admin: 02/07/17 09:00 Dose: Not Given Atorvastatin Calcium (Lipitor) 10 mg PO HS [facility] Last Admin: 02/08/17 22:15 Dose: 10 mg Heparin Sodium (Porcine) (Heparin) 5,000 units SC Q8 [facility] PRN Reason: Protocol Last Admin: 02/07/17 09:00 Dose: Not Given Vancomycin HCl 1 gm/ Sodium (Chloride) 250 mls @ 166.667 mls/hr IVPB DAILY [facility] Last Admin: 02/09/17 08:49 Dose: 166.667 mls/hr Piperacillin Sod/Tazobactam (Sod 2.25 gm/ Sodium Chloride) 100 mls @ 100 mls/ hr IVPB Q8 [facility] Last Admin: 02/09/17 08:12 Dose: 100 mls/hr Norepinephrine Bitartrate 8 mg (/ Dextrose) 258 mls @ 15.48 mls/hr IV .[id number] ONE; 8 MCG/MIN PRN Reason: Protocol Stop: 02/09/17 11:39 Last Titration: 02/09/17 07:02 Dose: 5.5 mcg/min, 10.64 mls/hr Insulin Human Regular (Humulin R) 0 units SC ACHS [facility] PRN Reason: Protocol Last Admin: 02/09/17 06:31 Dose: 4 units Ondansetron HCl (Zofran Inj) 4 mg IVP Q6 PRN PRN Reason: Nausea/Vomiting Last Admin: 02/07/17 18:47 Dose: 4 mg Pantoprazole Sodium (Protonix Ec Tab) 40 mg PO DAILY [facility] Last Admin: 02/09/17 08:09 Dose: 40 mg Sevelamer HCl (Renagel) 2,400 mg PO TID [facility] Last Admin: 02/09/17 08:11 Dose: 2,400 mg Sitagliptin Phosphate (Januvia) 25 mg PO DAILY [facility] Last Admin: 02/09/17 08:10 Dose: 25 mg Tramadol HCl (Ultram) 50 mg PO Q8 PRN PRN Reason: Pain, severe (8-10) Last Admin: 02/08/17 13:58 Dose: 50 mg Vitamin B Complex/Vit C/Folic Acid (Nephro-Niko) 1 tab PO DAILY [facility] Last Admin: 02/09/17 08:10 Dose: 1 tab - Labs Labs: 02/09/17 05:30 02/09/17 05:30 PT 14.1 Seconds (9.8-13.1) H 02/07/17 06:05 INR 1.2 (0.9-1.2) 02/07/17 06:05 APTT 30.3 Seconds (25.6-37.1) 02/07/17 06:05 - Constitutional Appears: Non-toxic, No Acute Distress - Extremities Exam Additional comments: Pelvis/LLE: No TTP over ASIS or iliac crest, no ttp over greater trochanter or hip region Normal Active ROM at hip, knee and ankle, no pain with ROM Calves soft and nontender b/l Distal pulses weak, but palpable - Neurological Exam Neurological Exam: Alert, Awake, Oriented x3 - Psychiatric Exam Psychiatric exam: Normal Affect, Normal Mood Assessment and Plan - Assessment and Plan (Free Text) Assessment: 76 yoM with several comorbidities presents with left pelvic ring fx after fall 2 months ago Plan: -Pt S&E at bedside -Plan discussed with DR. Slaughter -CT imaging reveals Left pelvic ring fx -Xrays- AP pelvis and AP/lat left hip -Recommend toe touch weight bearing LLE and DVT prophylaxis (SCD's for now) -Will follow up
--- NOTE | 2017-02-09 10:32 | CP.CCUPN ---
CCU Subjective - Physician Review Events Since Last Encounter (Free Text): 02/09/17 10:29 Patient on BIPAP with O2 supplement, awake, on levophed drip, no fever, follow simple commands, events reviewed CCU Objective - Vital Signs / Intake & Output Vital Signs (Last 4 hours): Vital Signs Temp Pulse Resp BP Pulse Ox 02/09/17 09:00 62 15 105/45 L 95 02/09/17 08:30 62 17 105/41 L 95 02/09/17 08:00 97.6 F 61 17 154/44 H 95 02/09/17 07:00 60 21 120/72 95 Intake and Output (Last 8hrs): Intake & Output 02/08/17 02/09/17 02/09/17 22:59 06:59 14:59 Intake Total 250 590 10 Output Total 0 Balance 250 590 10 Weight 157 lb Intake: IV 250 0 10 Intake, Piggyback 200 Oral 390 Output: Urine 0 Urine, Voided 0 - Physical Exam Head: Positive for: Atraumatic, Normocephalic Pupils: Positive for: PERRL Conjunctiva: Positive for: Normal Ears: Positive for: Normal Mouth: Positive for: Moist Mucous Membranes Pharnyx: Positive for: Normal Nose (External): Positive for: Atraumatic Neck: Positive for: Normal Range of Motion Respiratory/Chest: Positive for: Rhonchi Cardiovascular: Positive for: Regular Rate and Rhythm, Normal S1, S2 Abdomen: Positive for: Normal Bowel Sounds Upper Extremity: Positive for: Normal Inspection Lower Extremity: Positive for: Other (Rt 2nd toe ulcer) Psychiatric: Positive for: Alert - Medications Active Medications: Active Medications Generic Name Dose Route Start Last Admin Trade Name Freq PRN Reason Stop Dose Admin Acetaminophen 650 mg 02/06/17 16:45 Tylenol 325mg Tab PO Q6 PRN Pain, moderate (4-7) Aspirin 81 mg 02/07/17 09:00 02/07/17 09:00 Ecotrin PO Not Given DAILY [facility] Atorvastatin Calcium 10 mg 02/06/17 22:00 02/08/17 22:15 Lipitor PO 10 mg HS [facility] Administration Heparin Sodium (Porcine) 5,000 units 02/06/17 17:00 02/07/17 09:00 Heparin SC Not Given Q8 [facility] Protocol Vancomycin HCl 1 gm/ Sodium 250 mls @ 166.667 mls/hr 02/07/17 11:00 02/09/17 08:49 Chloride IVPB 166.667 mls/hr DAILY [facility] Administration Piperacillin Sod/Tazobactam 100 mls @ 100 mls/hr 02/07/17 11:00 02/09/17 08: 12 Sod 2.25 gm/ Sodium Chloride IVPB 100 mls/hr Q8 [facility] Administration Norepinephrine Bitartrate 8 mg 258 mls @ 15.48 mls/hr 02/08/17 19:00 07:02 / Dextrose IV 02/09/17 11:39 5.5 mcg/min .[id number] ONE 10.64 mls/hr Protocol Titration 8 MCG/MIN Insulin Human Regular 0 units 02/06/17 22:00 02/09/17 06:31 Humulin R SC 4 units ACHS [facility] Administration Protocol Ondansetron HCl 4 mg 02/07/17 18:14 02/07/17 18:47 Zofran Inj IVP 4 mg Q6 PRN Administration Nausea/Vomiting Pantoprazole Sodium 40 mg 02/07/17 09:00 02/09/17 08:09 Protonix Ec Tab PO 40 mg DAILY [facility] Administration Sevelamer HCl 2,400 mg 02/06/17 17:00 02/09/17 08:11 Renagel PO 2,400 mg TID [facility] Administration Sitagliptin Phosphate 25 mg 02/07/17 09:00 02/09/17 08:10 Januvia PO 25 mg DAILY [facility] Administration Tramadol HCl 50 mg 02/06/17 16:48 02/08/17 13:58 Ultram PO 50 mg Q8 PRN Administration Pain, severe (8-10) Vitamin B Complex/Vit C/Folic Acid 1 tab 02/07/17 09:00 02/09/17 08:10 Nephro-Niko PO 1 tab DAILY [facility] Administration - Patient Studies Lab Studies: Microbiology Studies 02/06/17 15:30 Gram Stain - Final Foot - Right Wound Culture - Final Serratia Marcescens Corynebacterium Species Lab Studies 02/09/17 02/09/17 02/08/17 Range/Units 05:30 05:30 21:09 WBC 18.4 H (4.8-10.8) K/uL RBC 4.35 L (4.40-5.90) Mil/uL Hgb 9.7 L (12.0-18.0) g/dL Hct 32.4 L (35.0-51.0) % MCV 74.6 L (80.0-94.0) fl MCH 22.2 L (27.0-31.0) pg MCHC 29.8 L (33.0-37.0) g/dL RDW 20.2 H (11.5-14.5) % Plt Count 260 (130-400) K/uL MPV 9.4 (7.2-11.7) fl Neut % (Auto) 82.4 H (50.0-75.0) % Lymph % (Auto) 5.7 L (20.0-40.0) % [place] % (Auto) 11.2 H (0.0-10.0) % Eos % (Auto) 0.2 (0.0-4.0) % Baso % (Auto) 0.5 (0.0-2.0) % Neut # 15.2 H (1.8-7.0) K/uL Lymph # 1.0 (1.0-4.3) K/uL [place] # 2.1 H (0.0-0.8) K/uL Eos # 0.0 (0.0-0.7) K/uL Baso # 0.1 (0.0-0.2) K/uL pCO2 (35-45) mm/Hg pO2 (80-100) mm/Hg HCO3 (21-28) mmol/L ABG pH (7.35-7.45) ABG Total CO2 (22-28) mmol/L ABG O2 Saturation (95-98) % ABG O2 Content (15-23) ML/dL ABG Base Excess (-2.0-3.0) mmol/L ABG Hemoglobin (11.7-17.4) g/dL ABG Carboxyhemoglobin (0.5-1.5) % POC ABG HHb (Measured) (0.0-5.0) % ABG Methemoglobin (0.0-3.0) % ABG O2 Capacity (16-24) mL/dL Kai Test A-a O2 Difference mm/Hg Hgb O2 Saturation (95.0-98.0) % FiO2 % Sodium 133 (132-148) mmol/l Potassium 4.7 (3.6-5.0) MMOL/L Chloride 92 L (98-107) mmol/L Carbon Dioxide 24 (22-30) mmol/L Anion Gap 22 H (10-20) BUN 47 H (9-20) mg/dl Creatinine 5.5 H (0.8-1.5) mg/dL Est GFR ( Amer) 12 Est GFR (Non-Af Amer) 10 POC Glucose (mg/dL) 238 H (65-110) mg/dL Random Glucose 330 H (75-110) mg/dL Calcium 8.7 (8.4-10.2) mg/dL Total Bilirubin 0.7 (0.2-1.3) mg/dl AST 23 (17-59) U/L ALT 24 (21-72) U/L Alkaline Phosphatase 72 (38-126) U/L Total Protein 7.2 (6.3-8.2) G/DL Albumin 3.7 (3.5-5.0) g/dL Globulin 3.5 (2.2-3.9) gm/dL Albumin/Globulin Ratio 1.1 (1.0-2.1) 02/08/17 02/08/17 02/08/17 Range/Units 20:45 18:19 16:29 WBC (4.8-10.8) K/uL RBC (4.40-5.90) Mil/uL Hgb (12.0-18.0) g/dL Hct (35.0-51.0) % MCV (80.0-94.0) fl MCH (27.0-31.0) pg MCHC (33.0-37.0) g/dL RDW (11.5-14.5) % Plt Count (130-400) K/uL MPV (7.2-11.7) fl Neut % (Auto) (50.0-75.0) % Lymph % (Auto) (20.0-40.0) % [place] % (Auto) (0.0-10.0) % Eos % (Auto) (0.0-4.0) % Baso % (Auto) (0.0-2.0) % Neut # (1.8-7.0) K/uL Lymph # (1.0-4.3) K/uL [place] # (0.0-0.8) K/uL Eos # (0.0-0.7) K/uL Baso # (0.0-0.2) K/uL pCO2 51 H (35-45) mm/Hg pO2 50 L (80-100) mm/Hg HCO3 23.9 (21-28) mmol/L ABG pH 7.31 L (7.35-7.45) ABG Total CO2 27.3 (22-28) mmol/L ABG O2 Saturation 85.3 L (95-98) % ABG O2 Content 11.2 L (15-23) ML/dL ABG Base Excess -0.9 (-2.0-3.0) mmol/L ABG Hemoglobin 9.8 L (11.7-17.4) g/dL ABG Carboxyhemoglobin 2.2 H (0.5-1.5) % POC ABG HHb (Measured) 14.0 H (0.0-5.0) % ABG Methemoglobin 2.5 (0.0-3.0) % ABG O2 Capacity 13.1 L (16-24) mL/dL Kai Test Yes A-a O2 Difference 171.0 mm/Hg Hgb O2 Saturation 81.3 L (95.0-98.0) % FiO2 40.0 % Sodium 136 (132-148) mmol/l Potassium 4.6 (3.6-5.0) MMOL/L Chloride 95 L (98-107) mmol/L Carbon Dioxide 26 (22-30) mmol/L Anion Gap 20 (10-20) BUN 42 H (9-20) mg/dl Creatinine 5.1 H (0.8-1.5) mg/dL Est GFR ( Amer) 13 Est GFR (Non-Af Amer) 11 POC Glucose (mg/dL) 266 H (65-110) mg/dL Random Glucose 233 H (75-110) mg/dL Calcium 8.6 (8.4-10.2) mg/dL Total Bilirubin (0.2-1.3) mg/dl AST (17-59) U/L ALT (21-72) U/L Alkaline Phosphatase (38-126) U/L Total Protein (6.3-8.2) G/DL Albumin (3.5-5.0) g/dL Globulin (2.2-3.9) gm/dL Albumin/Globulin Ratio (1.0-2.1) 02/08/17 Range/Units 11:10 WBC (4.8-10.8) K/uL RBC (4.40-5.90) Mil/uL Hgb (12.0-18.0) g/dL Hct (35.0-51.0) % MCV (80.0-94.0) fl MCH (27.0-31.0) pg MCHC (33.0-37.0) g/dL RDW (11.5-14.5) % Plt Count (130-400) K/uL MPV (7.2-11.7) fl Neut % (Auto) (50.0-75.0) % Lymph % (Auto) (20.0-40.0) % [place] % (Auto) (0.0-10.0) % Eos % (Auto) (0.0-4.0) % Baso % (Auto) (0.0-2.0) % Neut # (1.8-7.0) K/uL Lymph # (1.0-4.3) K/uL [place] # (0.0-0.8) K/uL Eos # (0.0-0.7) K/uL Baso # (0.0-0.2) K/uL pCO2 (35-45) mm/Hg pO2 (80-100) mm/Hg HCO3 (21-28) mmol/L ABG pH (7.35-7.45) ABG Total CO2 (22-28) mmol/L ABG O2 Saturation (95-98) % ABG O2 Content (15-23) ML/dL ABG Base Excess (-2.0-3.0) mmol/L ABG Hemoglobin (11.7-17.4) g/dL ABG Carboxyhemoglobin (0.5-1.5) % POC ABG HHb (Measured) (0.0-5.0) % ABG Methemoglobin (0.0-3.0) % ABG O2 Capacity (16-24) mL/dL Kai Test A-a O2 Difference mm/Hg Hgb O2 Saturation (95.0-98.0) % FiO2 % Sodium (132-148) mmol/l Potassium (3.6-5.0) MMOL/L Chloride (98-107) mmol/L Carbon Dioxide (22-30) mmol/L Anion Gap (10-20) BUN (9-20) mg/dl Creatinine (0.8-1.5) mg/dL Est GFR ( Amer) Est GFR (Non-Af Amer) POC Glucose (mg/dL) 247 H (65-110) mg/dL Random Glucose (75-110) mg/dL Calcium (8.4-10.2) mg/dL Total Bilirubin (0.2-1.3) mg/dl AST (17-59) U/L ALT (21-72) U/L Alkaline Phosphatase (38-126) U/L Total Protein (6.3-8.2) G/DL Albumin (3.5-5.0) g/dL Globulin (2.2-3.9) gm/dL Albumin/Globulin Ratio (1.0-2.1) Laboratory Results - last 24 hr 02/08/17 02/08/17 02/08/17 11:10 16:29 18:19 WBC RBC Hgb Hct MCV MCH MCHC RDW Plt Count MPV Neut % (Auto) Lymph % (Auto) [place] % (Auto) Eos % (Auto) Baso % (Auto) Neut # Lymph # [place] # Eos # Baso # pCO2 51 H pO2 50 L HCO3 23.9 ABG pH 7.31 L ABG Total CO2 27.3 ABG O2 Saturation 85.3 L ABG O2 Content 11.2 L ABG Base Excess -0.9 ABG Hemoglobin 9.8 L ABG Carboxyhemoglobin 2.2 H POC ABG HHb (Measured) 14.0 H ABG Methemoglobin 2.5 ABG O2 Capacity 13.1 L Kai Test Yes A-a O2 Difference 171.0 Hgb O2 Saturation 81.3 L FiO2 40.0 Sodium Potassium Chloride Carbon Dioxide Anion Gap BUN Creatinine Est GFR ( Amer) Est GFR (Non-Af Amer) POC Glucose (mg/dL) 247 H 266 H Random Glucose Calcium Total Bilirubin AST ALT Alkaline Phosphatase Total Protein Albumin Globulin Albumin/Globulin Ratio 02/08/17 02/08/17 02/09/17 20:45 21:09 05:30 WBC 18.4 H RBC 4.35 L Hgb 9.7 L Hct 32.4 L MCV 74.6 L MCH 22.2 L MCHC 29.8 L RDW 20.2 H Plt Count 260 MPV 9.4 Neut % (Auto) 82.4 H Lymph % (Auto) 5.7 L [place] % (Auto) 11.2 H Eos % (Auto) 0.2 Baso % (Auto) 0.5 Neut # 15.2 H Lymph # 1.0 [place] # 2.1 H Eos # 0.0 Baso # 0.1 pCO2 pO2 HCO3 ABG pH ABG Total CO2 ABG O2 Saturation ABG O2 Content ABG Base Excess ABG Hemoglobin ABG Carboxyhemoglobin POC ABG HHb (Measured) ABG Methemoglobin ABG O2 Capacity Kai Test A-a O2 Difference Hgb O2 Saturation FiO2 Sodium 136 Potassium 4.6 Chloride 95 L Carbon Dioxide 26 Anion Gap 20 BUN 42 H Creatinine 5.1 H Est GFR ( Amer) 13 Est GFR (Non-Af Amer) 11 POC Glucose (mg/dL) 238 H Random Glucose 233 H Calcium 8.6 Total Bilirubin AST ALT Alkaline Phosphatase Total Protein Albumin Globulin Albumin/Globulin Ratio 02/09/17 05:30 WBC RBC Hgb Hct MCV MCH MCHC RDW Plt Count MPV Neut % (Auto) Lymph % (Auto) [place] % (Auto) Eos % (Auto) Baso % (Auto) Neut # Lymph # [place] # Eos # Baso # pCO2 pO2 HCO3 ABG pH ABG Total CO2 ABG O2 Saturation ABG O2 Content ABG Base Excess ABG Hemoglobin ABG Carboxyhemoglobin POC ABG HHb (Measured) ABG Methemoglobin ABG O2 Capacity Kai Test A-a O2 Difference Hgb O2 Saturation FiO2 Sodium 133 Potassium 4.7 Chloride 92 L Carbon Dioxide 24 Anion Gap 22 H BUN 47 H Creatinine 5.5 H Est GFR ( Amer) 12 Est GFR (Non-Af Amer) 10 POC Glucose (mg/dL) Random Glucose 330 H Calcium 8.7 Total Bilirubin 0.7 AST 23 ALT 24 Alkaline Phosphatase 72 Total Protein 7.2 Albumin 3.7 Globulin 3.5 Albumin/Globulin Ratio 1.1 Fingerstick Blood Sugar Results: 327 Critical Care Progress Note - Nutrition Nutrition: Nutrition Category Date Time Status Renal Diet [DIET] Diets 02/08/17 Dinner Active Assessment/Plan - Assessment and Plan (Free Text) Assessment: A/P Respiratory insufficiency, sepsis, Rt foot ulcer, ESRD, DM, CAD, h/o CHF, left pelvic ring fracture, R/O PE - BIPAP as needed - Pulmonary toilets - Continue meds - ID follow up - CT chest Critical care 35 min
[2017-02-09] MEDS ORDERED: Iodixanol 320 MG/ML 100 ML BOTTLE IV ONE (10:58)
[2017-02-09] MEDS ORDERED: Sodium Chloride 0.9% 100 ML ONE (11:00)
--- NOTE | 2017-02-09 11:42 | CP.PCM.PN ---
Subjective - Date & Time of Evaluation Date of Evaluation: 02/09/17 Time of Evaluation: 11:00 - Subjective Subjective: Alert & oriented. No c/o CP oe SOB No resp distress noted Objective - Vital Signs/Intake and Output Vital Signs (last 24 hours): Temp Pulse Resp BP Pulse Ox 97.6 F 62 15 105/45 L 95 02/09/17 08:00 02/09/17 09:00 02/09/17 09:00 02/09/17 09:00 02/09/17 09:00 Intake and Output: 02/09/17 02/09/17 06:59 18:59 Intake Total 840 268 Output Total 0 Balance 840 268 - Medications Medications: Current Medications Acetaminophen (Tylenol 325mg Tab) 650 mg PO Q6 PRN PRN Reason: Pain, moderate (4-7) Aspirin (Ecotrin) 81 mg PO DAILY [facility] Last Admin: 02/07/17 09:00 Dose: Not Given Atorvastatin Calcium (Lipitor) 10 mg PO HS [facility] Last Admin: 02/08/17 22:15 Dose: 10 mg Heparin Sodium (Porcine) (Heparin) 5,000 units SC Q8 [facility] PRN Reason: Protocol Last Admin: 02/07/17 09:00 Dose: Not Given Vancomycin HCl 1 gm/ Sodium (Chloride) 250 mls @ 166.667 mls/hr IVPB DAILY [facility] Last Admin: 02/09/17 08:49 Dose: 166.667 mls/hr Piperacillin Sod/Tazobactam (Sod 2.25 gm/ Sodium Chloride) 100 mls @ 100 mls/ hr IVPB Q8 [facility] Last Admin: 02/09/17 08:12 Dose: 100 mls/hr Insulin Human Regular (Humulin R) 0 units SC ACHS [facility] PRN Reason: Protocol Last Admin: 02/09/17 06:31 Dose: 4 units Ondansetron HCl (Zofran Inj) 4 mg IVP Q6 PRN PRN Reason: Nausea/Vomiting Last Admin: 02/07/17 18:47 Dose: 4 mg Pantoprazole Sodium (Protonix Ec Tab) 40 mg PO DAILY [facility] Last Admin: 02/09/17 08:09 Dose: 40 mg Sevelamer HCl (Renagel) 2,400 mg PO TID [facility] Last Admin: 02/09/17 08:11 Dose: 2,400 mg Sitagliptin Phosphate (Januvia) 25 mg PO DAILY [facility] Last Admin: 02/09/17 08:10 Dose: 25 mg Tramadol HCl (Ultram) 50 mg PO Q8 PRN PRN Reason: Pain, severe (8-10) Last Admin: 02/08/17 13:58 Dose: 50 mg Vitamin B Complex/Vit C/Folic Acid (Nephro-Niko) 1 tab PO DAILY [facility] Last Admin: 02/09/17 08:10 Dose: 1 tab - Labs Labs: 02/09/17 05:30 02/09/17 05:30 PT 14.1 Seconds (9.8-13.1) H 02/07/17 06:05 INR 1.2 (0.9-1.2) 02/07/17 06:05 APTT 30.3 Seconds (25.6-37.1) 02/07/17 06:05 - Respiratory Exam Additional comments: Lungs clear - Cardiovascular Exam Cardiovascular Exam: REGULAR RHYTHM - GI/Abdominal Exam Additional comments: Softly distended. Nontender - Extremities Exam Additional comments: No edema or cyanosis Assessment and Plan - Assessment and Plan (Free Text) Assessment: ESRD on maintenance HD MWF Could not be dialysis yesterday because of syncopal episode & hypotension ? PE CAD, Hx/o CHF DM Chronic Rt foot ulcer Plan: Had CT of chest with contrast For dialysis today New order enterred Still on Levaphed but BPs are improving in am Labs are stable
--- NOTE | 2017-02-09 11:50 | CT ---
PROCEDURE: CT Chest with contrast (Pulmonary Angiogram) HISTORY: R/O PE COMPARISON: None available. TECHNIQUE: Axial computed tomography images were obtained of the chest in the pulmonary arterial phase of enhancement. Coronal and sagittal reformatted images were created and reviewed. Intravenous contrast dose: 100 cc of Omnipaque 300 Radiation dose: Total exam DLP = 355 mGy-cm. This CT exam was performed using one or more of the following dose reduction techniques: Automated exposure control, adjustment of the mA and/or kV according to patient size, and/or use of iterative reconstruction technique. FINDINGS: PULMONARY ARTERIES: Unremarkable. No pulmonary embolism. AORTA: No acute findings. No thoracic aortic aneurysm. LUNGS: Bibasilar consolidation. PLEURAL SPACES: Large right pleural effusion. Small left pleural effusion. Status post CABG. HEART: Cardiomegaly. Pacemaker and leads in place. LYMPH NODES: No lymphadenopathy. BONES, CHEST WALL: Unremarkable. No fracture or destructive lesion OTHER FINDINGS: Hepatomegaly with abdominal ascites. Left renal atrophy. IMPRESSION: No pulmonary embolism. Large right pleural effusion with small left pleural effusion. Bibasilar consolidation. Normal ascites
[2017-02-09] MEDS ORDERED: Albumin Human 25% (12.5 gm/50 ml) IV ONE (11:52)
--- NOTE | 2017-02-09 13:05 | CP.PCM.PN ---
Subjective - Date & Time of Evaluation Date of Evaluation: 02/09/17 Time of Evaluation: 11:30 - Subjective Subjective: NO CHEST PAIN OR SOB AT THE PRESENT TIME Objective - Vital Signs/Intake and Output Vital Signs (last 24 hours): Temp Pulse Resp BP Pulse Ox 99 F 61 14 126/96 H 94 L 02/09/17 12:00 02/09/17 12:31 02/09/17 12:31 02/09/17 12:31 02/09/17 12:31 Intake and Output: 02/09/17 02/09/17 06:59 18:59 Intake Total 840 628 Output Total 0 Balance 840 628 - Medications Medications: Current Medications Acetaminophen (Tylenol 325mg Tab) 650 mg PO Q6 PRN PRN Reason: Pain, moderate (4-7) Aspirin (Ecotrin) 81 mg PO DAILY [facility] Last Admin: 02/07/17 09:00 Dose: Not Given Atorvastatin Calcium (Lipitor) 10 mg PO HS [facility] Last Admin: 02/08/17 22:15 Dose: 10 mg Epoetin Avery (Procrit) 3,000 unit SC MWF [facility] Heparin Sodium (Porcine) (Heparin) 5,000 units SC Q8 [facility] PRN Reason: Protocol Last Admin: 02/07/17 09:00 Dose: Not Given Vancomycin HCl 1 gm/ Sodium (Chloride) 250 mls @ 166.667 mls/hr IVPB DAILY [facility] Last Admin: 02/09/17 08:49 Dose: 166.667 mls/hr Piperacillin Sod/Tazobactam (Sod 2.25 gm/ Sodium Chloride) 100 mls @ 100 mls/ hr IVPB Q8 [facility] Last Admin: 02/09/17 08:12 Dose: 100 mls/hr Insulin Human Regular (Humulin R) 0 units SC ACHS [facility] PRN Reason: Protocol Last Admin: 02/09/17 11:41 Dose: 5 units Ondansetron HCl (Zofran Inj) 4 mg IVP Q6 PRN PRN Reason: Nausea/Vomiting Last Admin: 02/07/17 18:47 Dose: 4 mg Pantoprazole Sodium (Protonix Ec Tab) 40 mg PO DAILY [facility] Last Admin: 02/09/17 08:09 Dose: 40 mg Sevelamer HCl (Renagel) 2,400 mg PO TID [facility] Last Admin: 02/09/17 12:49 Dose: 2,400 mg Sitagliptin Phosphate (Januvia) 25 mg PO DAILY [facility] Last Admin: 02/09/17 08:10 Dose: 25 mg Tramadol HCl (Ultram) 50 mg PO Q8 PRN PRN Reason: Pain, severe (8-10) Last Admin: 02/08/17 13:58 Dose: 50 mg Vitamin B Complex/Vit C/Folic Acid (Nephro-Niko) 1 tab PO DAILY [facility] Last Admin: 02/09/17 08:10 Dose: 1 tab - Labs Labs: 02/09/17 05:30 02/09/17 05:30 PT 14.1 Seconds (9.8-13.1) H 02/07/17 06:05 INR 1.2 (0.9-1.2) 02/07/17 06:05 APTT 30.3 Seconds (25.6-37.1) 02/07/17 06:05 - Respiratory Exam Respiratory Exam: Decreased Breath Sounds - Cardiovascular Exam Cardiovascular Exam: REGULAR RHYTHM, +S1, +S2 - Extremities Exam Additional comments: RT TOE ULCERS - Neurological Exam Additional comments: PATIENT NOW FULLY AWAKE AND ORIENTED X 3 NO NEUROLOGICAL DEFICITS - Additional Findings Additional findings: EVENTS OF YESTERDAY PM NOTED. THE PATIENT WAS WEAK AND HYPOTENSIVE AND TRANSFERRED TO THE ICU AND GIVEN IV FLUIDS AND NOREPINEPHRINE. BP WAS 122/76 AT 5AM YESTERDAY AND FELL TO 79/39 IN THE AFTERNOON. BP THIS AM WAS 120/70. EKG NOW NSR CT OF CHEST NEGATIVE FOR PE HIDA SCAN NEGATIVE LIPASE NORMAL Assessment and Plan - Assessment and Plan (Free Text) Assessment: SEPSIS PROBABLY FROM INFECTED FROM INFECTED TOE ULCERS CAD CRF ON HD DM PROGNOSIS GUARDED Plan: CONTINUE IV ANTIBIOTICS, NOREPINEPHRINE NEEDED, ASPIRIN, HEPARIN AND ATORVASTATIN CARVEDILOL STOPPED DUE TO HYPOTENSION HEARING EXAMINER AND NURSE SPOKEN TO THE WIF AND SON WERE SPOKEN TO
[2017-02-10 07:16] LABS: MEAN CELL VOLUME 72.3 fl (80.0-94.0); MEAN CORPUSCULAR HEMOGLOBIN 21.7 pg (27.0-31.0); RED CELL DISTRIBUTION WIDTH 19.8 % (11.5-14.5); WHITE BLOOD COUNT 14.2 K/uL (4.8-10.8)
[2017-02-10 07:31] LABS: ALB/GLOB RATIO 1.1 (1.0-2.1); BILIRUBIN,TOTAL 0.6 mg/dl (0.2-1.3); CALCIUM 8.4 mg/dL (8.4-10.2); POTASSIUM 3.8 MMOL/L (3.6-5.0); TOTAL PROTEIN 7.1 G/DL (6.3-8.2)
[2017-02-10] MEDS: Insulin Regular 100 units/ml SC SCH ×4 (07:49→22:00)
--- NOTE | 2017-02-10 08:12 | CP.CCUPN ---
CCU Subjective - Physician Review Events Since Last Encounter (Free Text): 02/10/17 08:12 Patient on O2 supplement by nasal canula, awake, on levophed drip, no fever, follow simple commands, events reviewed CCU Objective - Vital Signs / Intake & Output Vital Signs (Last 4 hours): Vital Signs Pulse Resp BP Pulse Ox 02/10/17 07:00 77 20 125/65 96 02/10/17 06:00 77 19 124/51 L 96 02/10/17 05:00 78 23 101/40 L 97 Intake and Output (Last 8hrs): Intake & Output 02/09/17 02/10/17 02/10/17 22:59 06:59 14:59 Intake Total 754 172 Output Total 1500 Balance -746 172 Intake: IV 74 72 Intake, Piggyback 100 Oral 680 Output: Other 1500 Other: # Bowel Movements 1 1 - Physical Exam Head: Positive for: Atraumatic, Normocephalic Pupils: Positive for: PERRL Conjunctiva: Positive for: Normal Ears: Positive for: Normal Mouth: Positive for: Moist Mucous Membranes Pharnyx: Positive for: Normal Nose (External): Positive for: Atraumatic Neck: Positive for: Normal Range of Motion Respiratory/Chest: Positive for: Rhonchi Cardiovascular: Positive for: Regular Rate and Rhythm, Normal S1, S2 Abdomen: Positive for: Normal Bowel Sounds Upper Extremity: Positive for: Normal Inspection Lower Extremity: Positive for: Other (Rt 2nd toe ulcer) Psychiatric: Positive for: Alert - Medications Active Medications: Active Medications Generic Name Dose Route Start Last Admin Trade Name Freq PRN Reason Stop Dose Admin Acetaminophen 650 mg 02/06/17 16:45 Tylenol 325mg Tab PO Q6 PRN Pain, moderate (4-7) Aspirin 81 mg 02/07/17 09:00 02/07/17 09:00 Ecotrin PO Not Given DAILY [facility] Atorvastatin Calcium 10 mg 02/06/17 22:00 02/09/17 22:33 Lipitor PO 10 mg HS [facility] Administration Epoetin Avery 3,000 unit 02/09/17 09:00 Procrit SC MWF [facility] Heparin Sodium (Porcine) 5,000 units 02/06/17 17:00 02/07/17 09:00 Heparin SC Not Given Q8 [facility] Protocol Vancomycin HCl 1 gm/ Sodium 250 mls @ 166.667 mls/hr 02/07/17 11:00 02/09/17 08:49 Chloride IVPB 166.667 mls/hr DAILY [facility] Administration Piperacillin Sod/Tazobactam 100 mls @ 100 mls/hr 02/07/17 11:00 02/10/17 01: 29 Sod 2.25 gm/ Sodium Chloride IVPB 100 mls/hr Q8 [facility] Administration Norepinephrine Bitartrate 8 mg 258 mls @ 9.67 mls/hr 02/10/17 08:09 / Dextrose IV 02/11/17 08:08 .Q24H ONE Protocol 5 MCG/MIN Insulin Human Regular 0 units 02/06/17 22:00 02/10/17 07:49 Humulin R SC 2 units ACHS RACIEL Administration Protocol Ondansetron HCl 4 mg 02/07/17 18:14 02/07/17 18:47 Zofran Inj IVP 4 mg Q6 PRN Administration Nausea/Vomiting Pantoprazole Sodium 40 mg 02/07/17 09:00 02/09/17 08:09 Protonix Ec Tab PO 40 mg DAILY RACIEL Administration Sevelamer HCl 2,400 mg 02/06/17 17:00 02/09/17 16:24 Renagel PO 2,400 mg TID RACIEL Administration Sitagliptin Phosphate 25 mg 02/07/17 09:00 02/09/17 08:10 Januvia PO 25 mg DAILY RACIEL Administration Tramadol HCl 50 mg 02/06/17 16:48 02/09/17 21:03 Ultram PO 50 mg Q8 PRN Administration Pain, severe (8-10) Vitamin B Complex/Vit C/Folic Acid 1 tab 02/07/17 09:00 02/09/17 08:10 Nephro-Niko PO 1 tab DAILY RACIEL Administration - Patient Studies Lab Studies: Lab Studies 02/10/17 02/10/17 02/09/17 Range/Units 05:51 05:30 22:28 WBC 14.2 H (4.8-10.8) K/uL RBC 4.28 L (4.40-5.90) Mil/uL Hgb 9.3 L (12.0-18.0) g/dL Hct 31.0 L (35.0-51.0) % MCV 72.3 L D (80.0-94.0) fl MCH 21.7 L (27.0-31.0) pg MCHC 30.0 L (33.0-37.0) g/dL RDW 19.8 H (11.5-14.5) % Plt Count 227 (130-400) K/uL POC Glucose (mg/dL) 242 H 130 H (65-110) mg/dL Procalcitonin (0.19-0.49) NG/ML 02/09/17 02/09/17 02/09/17 Range/Units 16:02 11:40 11:30 WBC (4.8-10.8) K/uL RBC (4.40-5.90) Mil/uL Hgb (12.0-18.0) g/dL Hct (35.0-51.0) % MCV (80.0-94.0) fl MCH (27.0-31.0) pg MCHC (33.0-37.0) g/dL RDW (11.5-14.5) % Plt Count (130-400) K/uL POC Glucose (mg/dL) 329 H 376 H (65-110) mg/dL Procalcitonin 1.71 H (0.19-0.49) NG/ML Laboratory Results - last 24 hr 02/09/17 02/09/17 02/09/17 11:30 11:40 16:02 WBC RBC Hgb Hct MCV MCH MCHC RDW Plt Count POC Glucose (mg/dL) 376 H 329 H Procalcitonin 1.71 H 02/09/17 02/10/17 02/10/17 22:28 05:30 05:51 WBC 14.2 H RBC 4.28 L Hgb 9.3 L Hct 31.0 L MCV 72.3 L D MCH 21.7 L MCHC 30.0 L RDW 19.8 H Plt Count 227 POC Glucose (mg/dL) 130 H 242 H Procalcitonin Fingerstick Blood Sugar Results: 242 Critical Care Progress Note - Nutrition Nutrition: Nutrition Category Date Time Status Renal Diet [DIET] Diets 02/08/17 Dinner Active Assessment/Plan - Assessment and Plan (Free Text) Assessment: A/P Respiratory insufficiency, sepsis, Rt foot ulcer, ESRD, DM, CAD, h/o CHF, left pelvic ring fracture, ?pneumonia - O2 supplement, BIPAP as needed - Pulmonary toilets - Continue meds - ID follow up - Podiatry follow up Critical care 35 min
[2017-02-10] MEDS: Pantoprazole 40 mg EC Tab PO SCH (08:58)
[2017-02-10] MEDS: Multivitamin Vitamin B Complex (Nephro-Vite) Tab PO SCH (08:58)
--- NOTE | 2017-02-10 09:26 | CP.PCM.PN ---
Subjective - Date & Time of Evaluation Date of Evaluation: 02/10/17 Time of Evaluation: 09:45 - Subjective Subjective: PODIATRY PROGRESS NOTE for DR. LEBRON: 76 y/o male seen at bedside in ICU today for f/u of right hallux and right 2nd digit ulceration. Pt seen resting comfortably in bed at time of visit. Pt says he is frustrated that he is still in the hospital and is asking to go home. Also says that he did not like wearing the heel cushions in bed. Does complain of pain to the left big toe today, does say pain medication is helping somewhat. Deneis f/n/v/c/sob/cp at this time. Denies any other pedal complaints today. Objective - Vital Signs/Intake and Output Vital Signs (last 24 hours): Temp Pulse Resp BP Pulse Ox 98.3 F 77 20 125/65 96 02/10/17 04:00 02/10/17 07:00 02/10/17 07:00 02/10/17 07:00 02/10/17 07:00 Intake and Output: 02/10/17 02/10/17 06:59 18:59 Intake Total 446 Output Total 1500 Balance -1054 - Medications Medications: Current Medications Acetaminophen (Tylenol 325mg Tab) 650 mg PO Q6 PRN PRN Reason: Pain, moderate (4-7) Aspirin (Ecotrin) 81 mg PO DAILY [facility] Last Admin: 02/07/17 09:00 Dose: Not Given Atorvastatin Calcium (Lipitor) 10 mg PO HS [facility] Last Admin: 02/09/17 22:33 Dose: 10 mg Epoetin Avery (Procrit) 3,000 unit SC F [facility] Heparin Sodium (Porcine) (Heparin) 5,000 units SC Q8 [facility] PRN Reason: Protocol Last Admin: 02/07/17 09:00 Dose: Not Given Vancomycin HCl 1 gm/ Sodium (Chloride) 250 mls @ 166.667 mls/hr IVPB DAILY [facility] Last Admin: 02/10/17 09:00 Dose: 166.667 mls/hr Piperacillin Sod/Tazobactam (Sod 2.25 gm/ Sodium Chloride) 100 mls @ 100 mls/ hr IVPB Q8 [facility] Last Admin: 02/10/17 09:00 Dose: 100 mls/hr Norepinephrine Bitartrate 8 mg (/ Dextrose) 258 mls @ 9.67 mls/hr IV .Q24H ONE ; 5 MCG/MIN PRN Reason: Protocol Stop: 02/11/17 08:08 Last Admin: 02/10/17 09:05 Dose: 5 mcg/min, 9.67 mls/hr Insulin Human Regular (Humulin R) 0 units SC ACHS [facility] PRN Reason: Protocol Last Admin: 02/10/17 07:49 Dose: 2 units Ondansetron HCl (Zofran Inj) 4 mg IVP Q6 PRN PRN Reason: Nausea/Vomiting Last Admin: 02/07/17 18:47 Dose: 4 mg Pantoprazole Sodium (Protonix Ec Tab) 40 mg PO DAILY [facility] Last Admin: 02/10/17 08:58 Dose: 40 mg Sevelamer HCl (Renagel) 2,400 mg PO TID [facility] Last Admin: 02/10/17 08:58 Dose: 2,400 mg Sitagliptin Phosphate (Januvia) 25 mg PO DAILY [facility] Last Admin: 02/10/17 08:58 Dose: 25 mg Tramadol HCl (Ultram) 50 mg PO Q8 PRN PRN Reason: Pain, severe (8-10) Last Admin: 02/10/17 09:01 Dose: 50 mg Vitamin B Complex/Vit C/Folic Acid (Nephro-Niko) 1 tab PO DAILY [facility] Last Admin: 02/10/17 08:58 Dose: 1 tab - Labs Labs: 02/10/17 05:30 02/10/17 05:30 PT 14.1 Seconds (9.8-13.1) H 02/07/17 06:05 INR 1.2 (0.9-1.2) 02/07/17 06:05 APTT 30.3 Seconds (25.6-37.1) 02/07/17 06:05 - Constitutional Appears: Non-toxic, No Acute Distress - Extremities Exam Extremities Exam: absent: Calf Tenderness Additional comments: Right foot focused: VASC: DP/PT pulses are non palpable, TG: warm to cool, MRP CONTROLLER: < 4 sec to all digits, mild edema noted on the 1st and 2nd digit DERM: mild edema and erythema noted to the 1st and 2nd digit, eschar noted on the medial aspect of the 2nd digit with fibrogranular base and fibrotic border, no active drainage, no probe to bone, no malodor, no ascending cellulitis, 2nd digit appears dusky and discolored, necrotic eschar noted to medial hallux and dorsal hallucal nail NEURO: pedal sensation is grossly intact ORTHO: pain on palpation of the 1st and 2nd digit of the right foot - Neurological Exam Neurological Exam: Alert, Awake, Oriented x3 - Psychiatric Exam Psychiatric exam: Normal Affect, Normal Mood Assessment and Plan - Assessment and Plan (Free Text) Assessment: 76 y/o male seen at bedside for R hallux necrotic wound, 2nd digit ulceration secondary to diabetes and PAD Plan: Pt S&E at bedside Plan discussed with attending Dr. Lebron Chart labs and vitals reviewed: WBC trending up 18.4 today (up from 15.6) Low ext vascular studies remain pending: TUTU/PVR, CT angiogram Bone scan right foot pending (r/o OM) Advised pt to wear offloading prevalon boots to avoid heel ulcerations, however patient is refusing No foot dressing needed at this time. Per ortho, patient is to be toe touch weight bearing to the left low ext Podiatry will follow
--- NOTE | 2017-02-10 13:10 | CP.PCM.PN ---
Subjective - Date & Time of Evaluation Date of Evaluation: 02/09/17 Time of Evaluation: 09:30 - Subjective Subjective: Im aware of what transpire during imaging testing. Patient is much more comfortable Still with low BP Has no fever Noted elevated WBC. Abdomen is distended US of the abd showed gb polyp and Gb stone at the gb neck. Objective - Vital Signs/Intake and Output Vital Signs (last 24 hours): Temp Pulse Resp BP Pulse Ox 98 F 73 15 132/51 L 99 02/10/17 08:00 02/10/17 10:00 02/10/17 10:00 02/10/17 10:00 02/10/17 10:00 Intake and Output: 02/10/17 02/10/17 06:59 18:59 Intake Total 446 599.83 Output Total 1500 1500 Balance -1054 -900.17 - Medications Medications: Current Medications Acetaminophen (Tylenol 325mg Tab) 650 mg PO Q6 PRN PRN Reason: Pain, moderate (4-7) Aspirin (Ecotrin) 81 mg PO DAILY [facility] Last Admin: 02/07/17 09:00 Dose: Not Given Atorvastatin Calcium (Lipitor) 10 mg PO HS [facility] Last Admin: 02/09/17 22:33 Dose: 10 mg Epoetin Avery (Procrit) 3,000 unit SC MWF [facility] Heparin Sodium (Porcine) (Heparin) 5,000 units SC Q8 [facility] PRN Reason: Protocol Last Admin: 02/07/17 09:00 Dose: Not Given Vancomycin HCl 1 gm/ Sodium (Chloride) 250 mls @ 166.667 mls/hr IVPB DAILY [facility] Last Admin: 02/10/17 09:00 Dose: 166.667 mls/hr Piperacillin Sod/Tazobactam (Sod 2.25 gm/ Sodium Chloride) 100 mls @ 100 mls/ hr IVPB Q8 [facility] Last Admin: 02/10/17 09:00 Dose: 100 mls/hr Norepinephrine Bitartrate 8 mg (/ Dextrose) 258 mls @ 9.67 mls/hr IV .Q24H ONE ; 5 MCG/MIN PRN Reason: Protocol Stop: 02/11/17 08:08 Last Titration: 02/10/17 10:00 Dose: 0 mcg/min, 0 mls/hr Insulin Human Regular (Humulin R) 0 units SC ACHS [facility] PRN Reason: Protocol Last Admin: 02/10/17 12:54 Dose: 3 units Ondansetron HCl (Zofran Inj) 4 mg IVP Q6 PRN PRN Reason: Nausea/Vomiting Last Admin: 02/07/17 18:47 Dose: 4 mg Pantoprazole Sodium (Protonix Ec Tab) 40 mg PO DAILY [facility] Last Admin: 02/10/17 08:58 Dose: 40 mg Sevelamer HCl (Renagel) 2,400 mg PO TID [facility] Last Admin: 02/10/17 12:54 Dose: 2,400 mg Sitagliptin Phosphate (Januvia) 25 mg PO DAILY [facility] Last Admin: 02/10/17 08:58 Dose: 25 mg Tramadol HCl (Ultram) 50 mg PO Q8 PRN PRN Reason: Pain, severe (8-10) Last Admin: 02/10/17 09:01 Dose: 50 mg Vitamin B Complex/Vit C/Folic Acid (Nephro-Niko) 1 tab PO DAILY [facility] Last Admin: 02/10/17 08:58 Dose: 1 tab - Labs Labs: 02/10/17 05:30 02/10/17 05:30 PT 14.1 Seconds (9.8-13.1) H 02/07/17 06:05 INR 1.2 (0.9-1.2) 02/07/17 06:05 APTT 30.3 Seconds (25.6-37.1) 02/07/17 06:05 - Head Exam Head Exam: NORMAL INSPECTION - Eye Exam Eye Exam: Normal appearance - ENT Exam ENT Exam: Mucous Membranes Moist - Respiratory Exam Respiratory Exam: Decreased Breath Sounds - Cardiovascular Exam Cardiovascular Exam: REGULAR RHYTHM - GI/Abdominal Exam GI & Abdominal Exam: Normal Bowel Sounds - Psychiatric Exam Psychiatric exam: Normal Mood Assessment and Plan (1) Cholelithiasis Status: Acute (2) PAD (peripheral artery disease) Status: Acute (3) Ulcer of foot Status: Chronic (4) Gallbladder polyp Status: Acute (5) CKD (chronic kidney disease) stage 5, GFR less than 15 ml/min Status: Acute - Assessment and Plan (Free Text) Plan: Cont hydration and iv antibiotics cont monitor follow up with Cardiology cont tx.
--- NOTE | 2017-02-10 13:14 | CP.PCM.PN ---
Subjective - Date & Time of Evaluation Date of Evaluation: 02/10/17 Time of Evaluation: 13:12 - Subjective Subjective: Claims to feel a lot better Noted abd distension No bm yet Has no fever Noted decrease in WBC from 18 to 14. Objective - Vital Signs/Intake and Output Vital Signs (last 24 hours): Temp Pulse Resp BP Pulse Ox 98 F 73 15 132/51 L 99 02/10/17 08:00 02/10/17 10:00 02/10/17 10:00 02/10/17 10:00 02/10/17 10:00 Intake and Output: 02/10/17 02/10/17 06:59 18:59 Intake Total 446 599.83 Output Total 1500 1500 Balance -1054 -900.17 - Medications Medications: Current Medications Acetaminophen (Tylenol 325mg Tab) 650 mg PO Q6 PRN PRN Reason: Pain, moderate (4-7) Aspirin (Ecotrin) 81 mg PO DAILY [facility] Last Admin: 02/07/17 09:00 Dose: Not Given Atorvastatin Calcium (Lipitor) 10 mg PO HS [facility] Last Admin: 02/09/17 22:33 Dose: 10 mg Epoetin Avery (Procrit) 3,000 unit SC MWF [facility] Heparin Sodium (Porcine) (Heparin) 5,000 units SC Q8 [facility] PRN Reason: Protocol Last Admin: 02/07/17 09:00 Dose: Not Given Vancomycin HCl 1 gm/ Sodium (Chloride) 250 mls @ 166.667 mls/hr IVPB DAILY [facility] Last Admin: 02/10/17 09:00 Dose: 166.667 mls/hr Piperacillin Sod/Tazobactam (Sod 2.25 gm/ Sodium Chloride) 100 mls @ 100 mls/ hr IVPB Q8 [facility] Last Admin: 02/10/17 09:00 Dose: 100 mls/hr Norepinephrine Bitartrate 8 mg (/ Dextrose) 258 mls @ 9.67 mls/hr IV .Q24H ONE ; 5 MCG/MIN PRN Reason: Protocol Stop: 02/11/17 08:08 Last Titration: 02/10/17 10:00 Dose: 0 mcg/min, 0 mls/hr Insulin Human Regular (Humulin R) 0 units SC ACHS [facility] PRN Reason: Protocol Last Admin: 02/10/17 12:54 Dose: 3 units Ondansetron HCl (Zofran Inj) 4 mg IVP Q6 PRN PRN Reason: Nausea/Vomiting Last Admin: 02/07/17 18:47 Dose: 4 mg Pantoprazole Sodium (Protonix Ec Tab) 40 mg PO DAILY [facility] Last Admin: 02/10/17 08:58 Dose: 40 mg Sevelamer HCl (Renagel) 2,400 mg PO TID [facility] Last Admin: 02/10/17 12:54 Dose: 2,400 mg Sitagliptin Phosphate (Januvia) 25 mg PO DAILY [facility] Last Admin: 02/10/17 08:58 Dose: 25 mg Tramadol HCl (Ultram) 50 mg PO Q8 PRN PRN Reason: Pain, severe (8-10) Last Admin: 02/10/17 09:01 Dose: 50 mg Vitamin B Complex/Vit C/Folic Acid (Nephro-Niko) 1 tab PO DAILY [facility] Last Admin: 02/10/17 08:58 Dose: 1 tab - Labs Labs: 02/10/17 05:30 02/10/17 05:30 PT 14.1 Seconds (9.8-13.1) H 02/07/17 06:05 INR 1.2 (0.9-1.2) 02/07/17 06:05 APTT 30.3 Seconds (25.6-37.1) 02/07/17 06:05 - Head Exam Head Exam: NORMAL INSPECTION - Eye Exam Eye Exam: Normal appearance - ENT Exam ENT Exam: Mucous Membranes Moist - Respiratory Exam Respiratory Exam: Decreased Breath Sounds - Cardiovascular Exam Cardiovascular Exam: REGULAR RHYTHM - GI/Abdominal Exam GI & Abdominal Exam: Distended, Normal Bowel Sounds - Neurological Exam Neurological Exam: Awake, Oriented x3 - Psychiatric Exam Psychiatric exam: Normal Mood Assessment and Plan (1) Cholelithiasis Status: Acute (2) PAD (peripheral artery disease) Status: Acute (3) Ulcer of foot Status: Chronic (4) Gallbladder polyp Status: Acute (5) CKD (chronic kidney disease) stage 5, GFR less than 15 ml/min Status: Acute - Assessment and Plan (Free Text) Plan: Con tmeds cont tx Cont iv antibiotics lactulose chech labs.
--- NOTE | 2017-02-10 13:24 | CP.PCM.PN ---
Subjective - Date & Time of Evaluation Date of Evaluation: 02/10/17 Time of Evaluation: 12:15 - Subjective Subjective: FEELS BETTER NO FEVERS OR CHILLS NO CHEST PAIN OR SOB ONLY COMPLAINT IS PAIN IN RIGHT TOES Objective - Vital Signs/Intake and Output Vital Signs (last 24 hours): Temp Pulse Resp BP Pulse Ox 98 F 73 15 132/51 L 99 02/10/17 08:00 02/10/17 10:00 02/10/17 10:00 02/10/17 10:00 02/10/17 10:00 Intake and Output: 02/10/17 02/10/17 06:59 18:59 Intake Total 446 599.83 Output Total 1500 1500 Balance -1054 -900.17 - Medications Medications: Current Medications Acetaminophen (Tylenol 325mg Tab) 650 mg PO Q6 PRN PRN Reason: Pain, moderate (4-7) Aspirin (Ecotrin) 81 mg PO DAILY [facility] Last Admin: 02/07/17 09:00 Dose: Not Given Atorvastatin Calcium (Lipitor) 10 mg PO HS [facility] Last Admin: 02/09/17 22:33 Dose: 10 mg Epoetin Avery (Procrit) 3,000 unit SC MWF [facility] Heparin Sodium (Porcine) (Heparin) 5,000 units SC Q8 [facility] PRN Reason: Protocol Last Admin: 02/07/17 09:00 Dose: Not Given Vancomycin HCl 1 gm/ Sodium (Chloride) 250 mls @ 166.667 mls/hr IVPB DAILY [facility] Last Admin: 02/10/17 09:00 Dose: 166.667 mls/hr Piperacillin Sod/Tazobactam (Sod 2.25 gm/ Sodium Chloride) 100 mls @ 100 mls/ hr IVPB Q8 [facility] Last Admin: 02/10/17 09:00 Dose: 100 mls/hr Norepinephrine Bitartrate 8 mg (/ Dextrose) 258 mls @ 9.67 mls/hr IV .Q24H ONE ; 5 MCG/MIN PRN Reason: Protocol Stop: 02/11/17 08:08 Last Titration: 02/10/17 10:00 Dose: 0 mcg/min, 0 mls/hr Insulin Human Regular (Humulin R) 0 units SC ACHS [facility] PRN Reason: Protocol Last Admin: 02/10/17 12:54 Dose: 3 units Ondansetron HCl (Zofran Inj) 4 mg IVP Q6 PRN PRN Reason: Nausea/Vomiting Last Admin: 02/07/17 18:47 Dose: 4 mg Pantoprazole Sodium (Protonix Ec Tab) 40 mg PO DAILY [facility] Last Admin: 02/10/17 08:58 Dose: 40 mg Sevelamer HCl (Renagel) 2,400 mg PO TID [facility] Last Admin: 02/10/17 12:54 Dose: 2,400 mg Sitagliptin Phosphate (Januvia) 25 mg PO DAILY [facility] Last Admin: 02/10/17 08:58 Dose: 25 mg Tramadol HCl (Ultram) 50 mg PO Q8 PRN PRN Reason: Pain, severe (8-10) Last Admin: 02/10/17 09:01 Dose: 50 mg Vitamin B Complex/Vit C/Folic Acid (Nephro-Niko) 1 tab PO DAILY [facility] Last Admin: 02/10/17 08:58 Dose: 1 tab - Labs Labs: 02/10/17 05:30 02/10/17 05:30 PT 14.1 Seconds (9.8-13.1) H 02/07/17 06:05 INR 1.2 (0.9-1.2) 02/07/17 06:05 APTT 30.3 Seconds (25.6-37.1) 02/07/17 06:05 - Respiratory Exam Respiratory Exam: Decreased Breath Sounds - Cardiovascular Exam Cardiovascular Exam: REGULAR RHYTHM, +S1, +S2 - Extremities Exam Additional comments: PAIN IN RIGHT FIRST AND SECOND TOES UPOM PALPATION TOE ULCERS ABOUT THE SAME VERY CYANOTIC ANTERIOR HALF OF RIGHT FOOT - Additional Findings Additional findings: 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
--- NOTE | 2017-02-10 13:26 | CP.PCM.PN ---
Subjective - Date & Time of Evaluation Date of Evaluation: 02/10/17 Time of Evaluation: 09:00 - Subjective Subjective: EVENTS NOTED IV RX IN PROGRESS DISCUSSED WITH DR MCWILLIAMS Objective - Vital Signs/Intake and Output Vital Signs (last 24 hours): Temp Pulse Resp BP Pulse Ox 98 F 71 17 116/62 98 02/10/17 08:00 02/10/17 11:30 02/10/17 11:30 02/10/17 11:30 02/10/17 11:30 Intake and Output: 02/10/17 02/10/17 06:59 18:59 Intake Total 446 599.83 Output Total 1500 1500 Balance -1054 -900.17 - Medications Medications: Current Medications Acetaminophen (Tylenol 325mg Tab) 650 mg PO Q6 PRN PRN Reason: Pain, moderate (4-7) Aspirin (Ecotrin) 81 mg PO DAILY [facility] Last Admin: 02/07/17 09:00 Dose: Not Given Atorvastatin Calcium (Lipitor) 10 mg PO HS [facility] Last Admin: 02/09/17 22:33 Dose: 10 mg Epoetin Avery (Procrit) 3,000 unit SC MWF [facility] Heparin Sodium (Porcine) (Heparin) 5,000 units SC Q8 [facility] PRN Reason: Protocol Last Admin: 02/07/17 09:00 Dose: Not Given Vancomycin HCl 1 gm/ Sodium (Chloride) 250 mls @ 166.667 mls/hr IVPB DAILY [facility] Last Admin: 02/10/17 09:00 Dose: 166.667 mls/hr Piperacillin Sod/Tazobactam (Sod 2.25 gm/ Sodium Chloride) 100 mls @ 100 mls/ hr IVPB Q8 [facility] Last Admin: 02/10/17 09:00 Dose: 100 mls/hr Norepinephrine Bitartrate 8 mg (/ Dextrose) 258 mls @ 9.67 mls/hr IV .Q24H ONE ; 5 MCG/MIN PRN Reason: Protocol Stop: 02/11/17 08:08 Last Titration: 02/10/17 10:00 Dose: 0 mcg/min, 0 mls/hr Insulin Human Regular (Humulin R) 0 units SC ACHS [facility] PRN Reason: Protocol Last Admin: 02/10/17 12:54 Dose: 3 units Ondansetron HCl (Zofran Inj) 4 mg IVP Q6 PRN PRN Reason: Nausea/Vomiting Last Admin: 02/07/17 18:47 Dose: 4 mg Pantoprazole Sodium (Protonix Ec Tab) 40 mg PO DAILY [facility] Last Admin: 02/10/17 08:58 Dose: 40 mg Sevelamer HCl (Renagel) 2,400 mg PO TID [facility] Last Admin: 02/10/17 12:54 Dose: 2,400 mg Sitagliptin Phosphate (Januvia) 25 mg PO DAILY [facility] Last Admin: 02/10/17 08:58 Dose: 25 mg Tramadol HCl (Ultram) 50 mg PO Q8 PRN PRN Reason: Pain, severe (8-10) Last Admin: 02/10/17 09:01 Dose: 50 mg Vitamin B Complex/Vit C/Folic Acid (Nephro-Niko) 1 tab PO DAILY [facility] Last Admin: 02/10/17 08:58 Dose: 1 tab - Labs Labs: 02/10/17 05:30 02/10/17 05:30 PT 14.1 Seconds (9.8-13.1) H 02/07/17 06:05 INR 1.2 (0.9-1.2) 02/07/17 06:05 APTT 30.3 Seconds (25.6-37.1) 02/07/17 06:05 Assessment and Plan (1) Ulcer of foot Status: Chronic (2) ESRD (end stage renal disease) Status: Acute (3) CHF (congestive heart failure) Status: Chronic (4) Diabetes Status: Chronic
--- NOTE | 2017-02-10 13:45 | CP.PCM.PN ---
Subjective - Date & Time of Evaluation Date of Evaluation: 02/10/17 Time of Evaluation: 12:00 - Subjective Subjective: Feels better today BP 115/52 off Levaphed Objective - Vital Signs/Intake and Output Vital Signs (last 24 hours): Temp Pulse Resp BP Pulse Ox 97 F L 73 22 110/50 L 96 02/10/17 12:00 02/10/17 13:00 02/10/17 13:00 02/10/17 13:00 02/10/17 13:00 Intake and Output: 02/10/17 02/10/17 06:59 18:59 Intake Total 446 839.83 Output Total 1500 1500 Balance -1054 -660.17 - Medications Medications: Current Medications Acetaminophen (Tylenol 325mg Tab) 650 mg PO Q6 PRN PRN Reason: Pain, moderate (4-7) Aspirin (Ecotrin) 81 mg PO DAILY [facility] Last Admin: 02/07/17 09:00 Dose: Not Given Atorvastatin Calcium (Lipitor) 10 mg PO HS [facility] Last Admin: 02/09/17 22:33 Dose: 10 mg Epoetin Avery (Procrit) 3,000 unit SC MWF [facility] Heparin Sodium (Porcine) (Heparin) 5,000 units SC Q8 [facility] PRN Reason: Protocol Last Admin: 02/07/17 09:00 Dose: Not Given Vancomycin HCl 1 gm/ Sodium (Chloride) 250 mls @ 166.667 mls/hr IVPB DAILY [facility] Last Admin: 02/10/17 09:00 Dose: 166.667 mls/hr Piperacillin Sod/Tazobactam (Sod 2.25 gm/ Sodium Chloride) 100 mls @ 100 mls/ hr IVPB Q8 [facility] Last Admin: 02/10/17 09:00 Dose: 100 mls/hr Norepinephrine Bitartrate 8 mg (/ Dextrose) 258 mls @ 9.67 mls/hr IV .Q24H ONE ; 5 MCG/MIN PRN Reason: Protocol Stop: 02/11/17 08:08 Last Titration: 02/10/17 10:00 Dose: 0 mcg/min, 0 mls/hr Insulin Human Regular (Humulin R) 0 units SC ACHS [facility] PRN Reason: Protocol Last Admin: 02/10/17 12:54 Dose: 3 units Ondansetron HCl (Zofran Inj) 4 mg IVP Q6 PRN PRN Reason: Nausea/Vomiting Last Admin: 02/07/17 18:47 Dose: 4 mg Pantoprazole Sodium (Protonix Ec Tab) 40 mg PO DAILY [facility] Last Admin: 02/10/17 08:58 Dose: 40 mg Sevelamer HCl (Renagel) 2,400 mg PO TID [facility] Last Admin: 02/10/17 12:54 Dose: 2,400 mg Sitagliptin Phosphate (Januvia) 25 mg PO DAILY [facility] Last Admin: 02/10/17 08:58 Dose: 25 mg Tramadol HCl (Ultram) 50 mg PO Q8 PRN PRN Reason: Pain, severe (8-10) Last Admin: 02/10/17 09:01 Dose: 50 mg Vitamin B Complex/Vit C/Folic Acid (Nephro-Niko) 1 tab PO DAILY [facility] Last Admin: 02/10/17 08:58 Dose: 1 tab - Labs Labs: 02/10/17 05:30 02/10/17 05:30 PT 14.1 Seconds (9.8-13.1) H 02/07/17 06:05 INR 1.2 (0.9-1.2) 02/07/17 06:05 APTT 30.3 Seconds (25.6-37.1) 02/07/17 06:05 - Respiratory Exam Additional comments: Lungs clear - Cardiovascular Exam Cardiovascular Exam: REGULAR RHYTHM - Extremities Exam Additional comments: No edema Assessment and Plan - Assessment and Plan (Free Text) Assessment: ESRD S/P syncopal episode/hypotension CHF Foot ulcer DM Plan: Dialysis was tolerated well yesterdat BP is stable HD MWF
[2017-02-11 05:42] LABS: HEMATOCRIT 30.8 % (35.0-51.0); MEAN CELL VOLUME 73.3 fl (80.0-94.0); RED CELL DISTRIBUTION WIDTH 19.8 % (11.5-14.5); WHITE BLOOD COUNT 12.3 K/uL (4.8-10.8)
[2017-02-11 05:46] LABS: ALB/GLOB RATIO 1.1 (1.0-2.1); BILIRUBIN,TOTAL 0.6 mg/dl (0.2-1.3); CALCIUM 8.8 mg/dL (8.4-10.2); TOTAL PROTEIN 7.2 G/DL (6.3-8.2)
[2017-02-11] MEDS: Insulin Regular 100 units/ml SC SCH ×4 (06:48→21:40)
--- NOTE | 2017-02-11 07:35 | CP.PCM.PN ---
Subjective - Date & Time of Evaluation Date of Evaluation: 02/11/17 Time of Evaluation: 07:33 - Subjective Subjective: 76 y/o male seen at bedside in ICU today for f/u of right hallux and right 2nd digit ulceration with ischemic changes. Pt seen resting comfortably in bed at time of visit. Patient is getting dialysis at the time of visit. Patient refuses to wear offloading prevlon boots while in bed. No complaints of pain to the right big toe today, does say pain medication is helping somewhat. Deneis f/ n/v/c/sob/cp at this time. Denies any other pedal complaints today. Objective - Vital Signs/Intake and Output Vital Signs (last 24 hours): Temp Pulse Resp BP Pulse Ox 98 F 74 16 94/54 L 96 02/11/17 06:00 02/11/17 06:00 02/11/17 06:00 02/11/17 06:00 02/11/17 06:00 Intake and Output: 02/11/17 02/11/17 06:59 18:59 Intake Total 288 Output Total 0 Balance 288 - Medications Medications: Current Medications Acetaminophen (Tylenol 325mg Tab) 650 mg PO Q6 PRN PRN Reason: Pain, moderate (4-7) Aspirin (Ecotrin) 81 mg PO DAILY [facility] Last Admin: 02/07/17 09:00 Dose: Not Given Atorvastatin Calcium (Lipitor) 10 mg PO HS [facility] Last Admin: 02/10/17 22:00 Dose: 10 mg Epoetin Avery (Procrit) 3,000 unit SC MWF [facility] Epoetin Avery (Procrit) 5,000 unit IV MWF [facility] Heparin Sodium (Porcine) (Heparin) 5,000 units SC Q8 [facility] PRN Reason: Protocol Last Admin: 02/07/17 09:00 Dose: Not Given Vancomycin HCl 1 gm/ Sodium (Chloride) 250 mls @ 166.667 mls/hr IVPB DAILY [facility] Last Admin: 02/10/17 09:00 Dose: 166.667 mls/hr Piperacillin Sod/Tazobactam (Sod 2.25 gm/ Sodium Chloride) 100 mls @ 100 mls/ hr IVPB Q8 [facility] Last Admin: 02/11/17 00:15 Dose: 100 mls/hr Norepinephrine Bitartrate 8 mg (/ Dextrose) 258 mls @ 9.67 mls/hr IV .Q24H ONE ; 5 MCG/MIN PRN Reason: Protocol Stop: 02/11/17 08:08 Last Titration: 02/10/17 10:00 Dose: 0 mcg/min, 0 mls/hr Insulin Human Regular (Humulin R) 0 units SC ACHS [facility] PRN Reason: Protocol Last Admin: 02/11/17 06:48 Dose: 1 units Ondansetron HCl (Zofran Inj) 4 mg IVP Q6 PRN PRN Reason: Nausea/Vomiting Last Admin: 02/07/17 18:47 Dose: 4 mg Pantoprazole Sodium (Protonix Ec Tab) 40 mg PO DAILY [facility] Last Admin: 02/10/17 08:58 Dose: 40 mg Sevelamer HCl (Renagel) 2,400 mg PO TID [facility] Last Admin: 02/10/17 16:58 Dose: 2,400 mg Sitagliptin Phosphate (Januvia) 25 mg PO DAILY [facility] Last Admin: 02/10/17 08:58 Dose: 25 mg Tramadol HCl (Ultram) 50 mg PO Q8 PRN PRN Reason: Pain, severe (8-10) Last Admin: 02/10/17 20:48 Dose: 50 mg Vitamin B Complex/Vit C/Folic Acid (Nephro-Niko) 1 tab PO DAILY [facility] Last Admin: 02/10/17 08:58 Dose: 1 tab - Labs Labs: 02/11/17 04:15 02/11/17 04:15 PT 14.1 Seconds (9.8-13.1) H 02/07/17 06:05 INR 1.2 (0.9-1.2) 02/07/17 06:05 APTT 30.3 Seconds (25.6-37.1) 02/07/17 06:05 - Constitutional Appears: Well, Non-toxic, No Acute Distress - Extremities Exam Additional comments: Right foot focused: VASC: DP/PT pulses are non palpable, TG: warm to cool, [employer]: < 4 sec to all digits, mild edema noted on the 1st and 2nd digit, ischemic changes noted to 2nd digit with dusky, purplish discoloration DERM: mild edema and erythema noted to the 1st and 2nd digit, eschar noted on the medial aspect of the 2nd digit with fibrogranular base and fibrotic border, no active drainage, no probe to bone, no malodor, no ascending cellulitis, 2nd digit appears dusky and discolored, necrotic eschar noted to medial hallux and dorsal hallucal nail NEURO: pedal sensation is grossly intact ORTHO: pain on palpation of the 1st and 2nd digit of the right foot - Neurological Exam Neurological Exam: Alert, Awake, Oriented x3 - Psychiatric Exam Psychiatric exam: Normal Affect, Normal Mood Assessment and Plan - Assessment and Plan (Free Text) Assessment: 76 y/o male seen at bedside for R hallux necrotic wound, 2nd digit ulceration with ischemic changes secondary to diabetes and PAD Plan: Pt S&E at bedside Plan discussed with attending Dr. Lebron Chart labs and vitals reviewed: WBC trending down 12.3 today (from 14.2) Low ext vascular studies remain pending: TUTU/PVR, CT angiogram Bone scan right foot pending (r/o OM) Advised pt to wear offloading prevalon boots to avoid heel ulcerations, however patient is refusing No foot dressing needed at this time. Per ortho, patient is to be toe touch weight bearing to the left low ext Podiatry will follow
[2017-02-11] MEDS ORDERED: Epoetin Alfa 20000 UNIT/ML Inj IV SCH (09:00)
--- NOTE | 2017-02-11 10:12 | CP.CCUPN ---
CCU Subjective - Physician Review Subjective (Free Text): Patient on O2 supplement by nasal cannula, refused BiPAP, awake, off levophed drip, no fever, follow simple commands, has R foot pain- on Ultram, events reviewed. CCU Objective - Vital Signs / Intake & Output Vital Signs (Last 4 hours): Vital Signs Temp Pulse Resp BP Pulse Ox 02/11/17 08:00 97.6 F 75 14 121/57 L 97 Intake and Output (Last 8hrs): Intake & Output 02/10/17 02/11/17 02/11/17 22:59 06:59 14:59 Intake Total 470 158 10 Output Total 0 Balance 470 158 10 Weight 158 lb 3.2 oz Intake: IV 10 8 10 Intake, Piggyback 100 100 Oral 360 50 Output: Urine 0 Urine, Voided 0 - Physical Exam Head: Positive for: Atraumatic, Normocephalic Pupils: Positive for: PERRL Conjunctiva: Positive for: Normal Ears: Positive for: Normal Mouth: Positive for: Moist Mucous Membranes Pharnyx: Positive for: Normal Nose (External): Positive for: Atraumatic Neck: Positive for: Normal Range of Motion Respiratory/Chest: Positive for: Rhonchi Cardiovascular: Positive for: Regular Rate and Rhythm, Normal S1, S2 Abdomen: Positive for: Normal Bowel Sounds Upper Extremity: Positive for: Normal Inspection Lower Extremity: Positive for: Other (Rt 2nd toe ulcer) Psychiatric: Positive for: Alert - Medications Active Medications: Active Medications Generic Name Dose Route Start Last Admin Trade Name Freq PRN Reason Stop Dose Admin Acetaminophen 650 mg 02/06/17 16:45 Tylenol 325mg Tab PO Q6 PRN Pain, moderate (4-7) Aspirin 81 mg 02/07/17 09:00 02/07/17 09:00 Ecotrin PO Not Given DAILY [facility] Atorvastatin Calcium 10 mg 02/06/17 22:00 02/10/17 22:00 Lipitor PO 10 mg HS [facility] Administration Epoetin Avery 3,000 unit 02/09/17 09:00 Procrit SC MWF [facility] Epoetin Avery 5,000 unit 02/11/17 09:00 Procrit IV MWF [facility] Heparin Sodium (Porcine) 5,000 units 02/06/17 17:00 02/07/17 09:00 Heparin SC Not Given Q8 [facility] Protocol Vancomycin HCl 1 gm/ Sodium 250 mls @ 166.667 mls/hr 02/07/17 11:00 02/10/17 09:00 Chloride IVPB 166.667 mls/hr DAILY [facility] Administration Piperacillin Sod/Tazobactam 100 mls @ 100 mls/hr 02/07/17 11:00 02/11/17 00: 15 Sod 2.25 gm/ Sodium Chloride IVPB 100 mls/hr Q8 [facility] Administration Insulin Human Regular 0 units 02/06/17 22:00 02/11/17 06:48 Humulin R SC 1 units ACHS [facility] Administration Protocol Ondansetron HCl 4 mg 02/07/17 18:14 02/07/17 18:47 Zofran Inj IVP 4 mg Q6 PRN Administration Nausea/Vomiting Pantoprazole Sodium 40 mg 02/07/17 09:00 02/10/17 08:58 Protonix Ec Tab PO 40 mg DAILY [facility] Administration Sevelamer HCl 2,400 mg 02/06/17 17:00 02/10/17 16:58 Renagel PO 2,400 mg TID [facility] Administration Sitagliptin Phosphate 25 mg 02/07/17 09:00 02/10/17 08:58 Januvia PO 25 mg DAILY [facility] Administration Tramadol HCl 50 mg 02/11/17 09:57 Ultram PO Q12 PRN Pain, moderate (4-7) Vitamin B Complex/Vit C/Folic Acid 1 tab 02/07/17 09:00 02/10/17 08:58 Nephro-Niko PO 1 tab DAILY [facility] Administration - Patient Studies Lab Studies: Microbiology Studies 02/09/17 08:50 Blood Culture - Preliminary Blood NO GROWTH AFTER 48 HOURS 02/09/17 08:50 Blood Culture - Preliminary Blood NO GROWTH AFTER 48 HOURS 02/08/17 20:45 MRSA Culture (Admit) - Final Naris MRSA NOT DETECTED Lab Studies 02/11/17 02/11/17 02/11/17 Range/Units 05:20 04:15 04:15 WBC 12.3 H (4.8-10.8) K/uL RBC 4.20 L (4.40-5.90) Mil/uL Hgb 9.2 L (12.0-18.0) g/dL Hct 30.8 L (35.0-51.0) % MCV 73.3 L (80.0-94.0) fl MCH 22.0 L (27.0-31.0) pg MCHC 30.0 L (33.0-37.0) g/dL RDW 19.8 H (11.5-14.5) % Plt Count 230 (130-400) K/uL Sodium 135 (132-148) mmol/l Potassium 4.0 (3.6-5.0) MMOL/L Chloride 94 L (98-107) mmol/L Carbon Dioxide 23 (22-30) mmol/L Anion Gap 22 H (10-20) BUN 46 H (9-20) mg/dl Creatinine 5.9 H (0.8-1.5) mg/dL Est GFR ( Amer) 11 Est GFR (Non-Af Amer) 9 POC Glucose (mg/dL) 177 H (65-110) mg/dL Random Glucose 137 H (75-110) mg/dL Calcium 8.8 (8.4-10.2) mg/dL Total Bilirubin 0.6 (0.2-1.3) mg/dl AST 21 (17-59) U/L ALT 23 (21-72) U/L Alkaline Phosphatase 70 (38-126) U/L Total Protein 7.2 (6.3-8.2) G/DL Albumin 3.7 (3.5-5.0) g/dL Globulin 3.5 (2.2-3.9) gm/dL Albumin/Globulin Ratio 1.1 (1.0-2.1) 02/10/17 02/10/17 Range/Units 15:59 10:55 WBC (4.8-10.8) K/uL RBC (4.40-5.90) Mil/uL Hgb (12.0-18.0) g/dL Hct (35.0-51.0) % MCV (80.0-94.0) fl MCH (27.0-31.0) pg MCHC (33.0-37.0) g/dL RDW (11.5-14.5) % Plt Count (130-400) K/uL Sodium (132-148) mmol/l Potassium (3.6-5.0) MMOL/L Chloride (98-107) mmol/L Carbon Dioxide (22-30) mmol/L Anion Gap (10-20) BUN (9-20) mg/dl Creatinine (0.8-1.5) mg/dL Est GFR ( Amer) Est GFR (Non-Af Amer) POC Glucose (mg/dL) 127 H 261 H (65-110) mg/dL Random Glucose (75-110) mg/dL Calcium (8.4-10.2) mg/dL Total Bilirubin (0.2-1.3) mg/dl AST (17-59) U/L ALT (21-72) U/L Alkaline Phosphatase (38-126) U/L Total Protein (6.3-8.2) G/DL Albumin (3.5-5.0) g/dL Globulin (2.2-3.9) gm/dL Albumin/Globulin Ratio (1.0-2.1) Laboratory Results - last 24 hr 02/10/17 02/10/17 02/11/17 10:55 15:59 04:15 WBC 12.3 H RBC 4.20 L Hgb 9.2 L Hct 30.8 L MCV 73.3 L MCH 22.0 L MCHC 30.0 L RDW 19.8 H Plt Count 230 Sodium Potassium Chloride Carbon Dioxide Anion Gap BUN Creatinine Est GFR ( Amer) Est GFR (Non-Af Amer) POC Glucose (mg/dL) 261 H 127 H Random Glucose Calcium Total Bilirubin AST ALT Alkaline Phosphatase Total Protein Albumin Globulin Albumin/Globulin Ratio 02/11/17 02/11/17 04:15 05:20 WBC RBC Hgb Hct MCV MCH MCHC RDW Plt Count Sodium 135 Potassium 4.0 Chloride 94 L Carbon Dioxide 23 Anion Gap 22 H BUN 46 H Creatinine 5.9 H Est GFR ( Amer) 11 Est GFR (Non-Af Amer) 9 POC Glucose (mg/dL) 177 H Random Glucose 137 H Calcium 8.8 Total Bilirubin 0.6 AST 21 ALT 23 Alkaline Phosphatase 70 Total Protein 7.2 Albumin 3.7 Globulin 3.5 Albumin/Globulin Ratio 1.1 Fingerstick Blood Sugar Results: 177 Review of Systems - Review of Systems All systems: reviewed and no additional remarkable complaints except Critical Care Progress Note - Ventilator Checklist Head of Bed 30 Degrees: Yes PUD Prophalyxis: Yes DVT Prophylaxis: Yes - Extremities/Vascular Does the Patient have a Central Venous Catheter?: Yes Insertion Site: Internal Jugular Vein Does the Patient need a Central Venous Catheter?: Yes - Prophylaxis GI Prophylaxis GI: Pepsid - Prophylaxis DVT Prophylaxis DVT: Heparin SQ - Nutrition Nutrition: Nutrition Category Date Time Status Renal Diet [DIET] Diets 02/08/17 Dinner Active Assessment/Plan - Assessment and Plan (Free Text) Assessment: A/P Respiratory insufficiency 2' R effusion, PNA, sepsis, Rt foot ulcer, ESRD, DM, CAD, h/o CHF, left pelvic ring fracture Plan: PLAN: - O2 supplement, BIPAP as needed, IR eval for Thoracentesis - Pulmonary toilets - Continue meds - ID follow up - Podiatry follow up
[2017-02-11] MEDS: Pantoprazole 40 mg EC Tab PO SCH (10:14)
[2017-02-11] MEDS: Multivitamin Vitamin B Complex (Nephro-Vite) Tab PO SCH (10:17)
--- NOTE | 2017-02-11 10:48 | CP.PCM.PN ---
Subjective - Date & Time of Evaluation Date of Evaluation: 02/11/17 Time of Evaluation: 10:46 - Subjective Subjective: Complains of a lot of pain on the right leg and foot. Discussed with Dr Mata and suggested a toe touch weight bearing. No PT yet Has no abd pain. On HD BP has been stable. Objective - Vital Signs/Intake and Output Vital Signs (last 24 hours): Temp Pulse Resp BP Pulse Ox 97.6 F 86 18 120/65 99 02/11/17 08:00 02/11/17 10:00 02/11/17 10:00 02/11/17 10:00 02/11/17 10:00 Intake and Output: 02/11/17 02/11/17 06:59 18:59 Intake Total 288 64 Output Total 0 Balance 288 64 - Medications Medications: Current Medications Acetaminophen (Tylenol 325mg Tab) 650 mg PO Q6 PRN PRN Reason: Pain, moderate (4-7) Aspirin (Ecotrin) 81 mg PO DAILY [facility] Last Admin: 02/07/17 09:00 Dose: Not Given Atorvastatin Calcium (Lipitor) 10 mg PO HS [facility] Last Admin: 02/10/17 22:00 Dose: 10 mg Epoetin Avery (Procrit) 3,000 unit SC MWF [facility] Epoetin Avery (Procrit) 5,000 unit IV MWF [facility] Heparin Sodium (Porcine) (Heparin) 5,000 units SC Q8 [facility] PRN Reason: Protocol Last Admin: 02/07/17 09:00 Dose: Not Given Vancomycin HCl 1 gm/ Sodium (Chloride) 250 mls @ 166.667 mls/hr IVPB DAILY [facility] Last Admin: 02/11/17 10:18 Dose: 166.667 mls/hr Piperacillin Sod/Tazobactam (Sod 2.25 gm/ Sodium Chloride) 100 mls @ 100 mls/ hr IVPB Q8 [facility] Last Admin: 02/11/17 00:15 Dose: 100 mls/hr Insulin Human Regular (Humulin R) 0 units SC ACHS [facility] PRN Reason: Protocol Last Admin: 02/11/17 06:48 Dose: 1 units Ondansetron HCl (Zofran Inj) 4 mg IVP Q6 PRN PRN Reason: Nausea/Vomiting Last Admin: 02/07/17 18:47 Dose: 4 mg Pantoprazole Sodium (Protonix Ec Tab) 40 mg PO DAILY [facility] Last Admin: 02/11/17 10:14 Dose: 40 mg Sevelamer HCl (Renagel) 2,400 mg PO TID [facility] Last Admin: 02/11/17 10:13 Dose: 2,400 mg Sitagliptin Phosphate (Januvia) 25 mg PO DAILY [facility] Last Admin: 02/11/17 10:18 Dose: 25 mg Tramadol HCl (Ultram) 50 mg PO Q12 PRN PRN Reason: Pain, moderate (4-7) Last Admin: 02/11/17 10:09 Dose: 50 mg Vitamin B Complex/Vit C/Folic Acid (Nephro-Niko) 1 tab PO DAILY [facility] Last Admin: 02/11/17 10:17 Dose: 1 tab - Labs Labs: 02/11/17 04:15 02/11/17 04:15 PT 14.1 Seconds (9.8-13.1) H 02/07/17 06:05 INR 1.2 (0.9-1.2) 02/07/17 06:05 APTT 30.3 Seconds (25.6-37.1) 02/07/17 06:05 - Head Exam Head Exam: NORMAL INSPECTION - Eye Exam Eye Exam: Normal appearance - ENT Exam ENT Exam: Mucous Membranes Moist - Respiratory Exam Respiratory Exam: Clear to Ausculation Bilateral - Cardiovascular Exam Cardiovascular Exam: REGULAR RHYTHM - GI/Abdominal Exam GI & Abdominal Exam: Normal Bowel Sounds - Extremities Exam Additional comments: tenderness on the right foot. Assessment and Plan (1) Cholelithiasis Status: Acute (2) PAD (peripheral artery disease) Status: Acute (3) Ulcer of foot Status: Chronic (4) Gallbladder polyp Status: Acute (5) CKD (chronic kidney disease) stage 5, GFR less than 15 ml/min Status: Acute (6) Pelvic ring fracture Status: Acute - Assessment and Plan (Free Text) Plan: Cont meds Coont tx pain meds toe touch weight bearing. telemetry
--- NOTE | 2017-02-11 10:51 | CP.PCM.PN ---
Subjective - Date & Time of Evaluation Date of Evaluation: 02/11/17 Time of Evaluation: 10:49 - Subjective Subjective: Seen on hemodialysis now Blood pressure 1 28 x 86 Pulse rate is about a 84 No chest pain no shortness of breath Ultrafiltration completed with 2500 mL removed. Complaining of pain in the right foot. Objective - Vital Signs/Intake and Output Vital Signs (last 24 hours): Temp Pulse Resp BP Pulse Ox 97.6 F 86 18 120/65 99 02/11/17 08:00 02/11/17 10:00 02/11/17 10:00 02/11/17 10:00 02/11/17 10:00 Intake and Output: 02/11/17 02/11/17 06:59 18:59 Intake Total 288 64 Output Total 0 Balance 288 64 - Medications Medications: Current Medications Acetaminophen (Tylenol 325mg Tab) 650 mg PO Q6 PRN PRN Reason: Pain, moderate (4-7) Aspirin (Ecotrin) 81 mg PO DAILY [facility] Last Admin: 02/07/17 09:00 Dose: Not Given Atorvastatin Calcium (Lipitor) 10 mg PO HS [facility] Last Admin: 02/10/17 22:00 Dose: 10 mg Epoetin Avery (Procrit) 3,000 unit SC MWF [facility] Epoetin Avery (Procrit) 5,000 unit IV MWF [facility] Heparin Sodium (Porcine) (Heparin) 5,000 units SC Q8 [facility] PRN Reason: Protocol Last Admin: 02/07/17 09:00 Dose: Not Given Vancomycin HCl 1 gm/ Sodium (Chloride) 250 mls @ 166.667 mls/hr IVPB DAILY [facility] Last Admin: 02/11/17 10:18 Dose: 166.667 mls/hr Piperacillin Sod/Tazobactam (Sod 2.25 gm/ Sodium Chloride) 100 mls @ 100 mls/ hr IVPB Q8 [facility] Last Admin: 02/11/17 00:15 Dose: 100 mls/hr Insulin Human Regular (Humulin R) 0 units SC ACHS [facility] PRN Reason: Protocol Last Admin: 02/11/17 06:48 Dose: 1 units Ondansetron HCl (Zofran Inj) 4 mg IVP Q6 PRN PRN Reason: Nausea/Vomiting Last Admin: 02/07/17 18:47 Dose: 4 mg Pantoprazole Sodium (Protonix Ec Tab) 40 mg PO DAILY [facility] Last Admin: 02/11/17 10:14 Dose: 40 mg Sevelamer HCl (Renagel) 2,400 mg PO TID [facility] Last Admin: 02/11/17 10:13 Dose: 2,400 mg Sitagliptin Phosphate (Januvia) 25 mg PO DAILY [facility] Last Admin: 02/11/17 10:18 Dose: 25 mg Tramadol HCl (Ultram) 50 mg PO Q12 PRN PRN Reason: Pain, moderate (4-7) Last Admin: 02/11/17 10:09 Dose: 50 mg Vitamin B Complex/Vit C/Folic Acid (Nephro-Niko) 1 tab PO DAILY [facility] Last Admin: 02/11/17 10:17 Dose: 1 tab - Labs Labs: 02/11/17 04:15 02/11/17 04:15 PT 14.1 Seconds (9.8-13.1) H 02/07/17 06:05 INR 1.2 (0.9-1.2) 02/07/17 06:05 APTT 30.3 Seconds (25.6-37.1) 02/07/17 06:05 - Constitutional Appears: No Acute Distress - ENT Exam ENT Exam: Mucous Membranes Moist - Respiratory Exam Respiratory Exam: NORMAL BREATHING PATTERN. absent: Chest Wall Tenderness, Rales - Cardiovascular Exam Cardiovascular Exam: absent: JVD, Rubs - GI/Abdominal Exam GI & Abdominal Exam: Normal Bowel Sounds - Extremities Exam Extremities Exam: absent: Calf Tenderness - Back Exam Back Exam: absent: CVA tenderness (L), CVA tenderness (R) - Neurological Exam Neurological Exam: Alert - Psychiatric Exam Psychiatric exam: Anxious Assessment and Plan (1) Ulcer of foot Status: Chronic (2) CHF (congestive heart failure) Status: Chronic (3) ESRD (end stage renal disease) on dialysis Assessment & Plan: Patient receiving dialysis with ultrafiltration 2500 mL Potassium bath to 2 milliequivalent Sodium bath 138 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 Status: Chronic
--- NOTE | 2017-02-11 11:58 | CP.PCM.PN ---
Subjective - Date & Time of Evaluation Date of Evaluation: 02/11/17 Time of Evaluation: 08:45 - Subjective Subjective: NO CHEST PAIN OR SOB FEELS STRONGER PAIN IN THE RIGHT FOOT PERSISTS Objective - Vital Signs/Intake and Output Vital Signs (last 24 hours): Temp Pulse Resp BP Pulse Ox 97.6 F 86 18 120/65 99 02/11/17 08:00 02/11/17 10:00 02/11/17 10:00 02/11/17 10:00 02/11/17 10:00 Intake and Output: 02/11/17 02/11/17 06:59 18:59 Intake Total 288 64 Output Total 0 2500 Balance 288 -2436 - Medications Medications: Current Medications Acetaminophen (Tylenol 325mg Tab) 650 mg PO Q6 PRN PRN Reason: Pain, moderate (4-7) Aspirin (Ecotrin) 81 mg PO DAILY [facility] Last Admin: 02/07/17 09:00 Dose: Not Given Atorvastatin Calcium (Lipitor) 10 mg PO HS [facility] Last Admin: 02/10/17 22:00 Dose: 10 mg Epoetin Avery (Procrit) 3,000 unit SC MWF [facility] Epoetin Avery (Procrit) 5,000 unit IV MWF [facility] Heparin Sodium (Porcine) (Heparin) 5,000 units SC Q8 [facility] PRN Reason: Protocol Last Admin: 02/07/17 09:00 Dose: Not Given Vancomycin HCl 1 gm/ Sodium (Chloride) 250 mls @ 166.667 mls/hr IVPB DAILY [facility] Last Admin: 02/11/17 10:18 Dose: 166.667 mls/hr Piperacillin Sod/Tazobactam (Sod 2.25 gm/ Sodium Chloride) 100 mls @ 100 mls/ hr IVPB Q8 [facility] Last Admin: 02/11/17 00:15 Dose: 100 mls/hr Insulin Human Regular (Humulin R) 0 units SC ACHS [facility] PRN Reason: Protocol Last Admin: 02/11/17 06:48 Dose: 1 units Ondansetron HCl (Zofran Inj) 4 mg IVP Q6 PRN PRN Reason: Nausea/Vomiting Last Admin: 02/07/17 18:47 Dose: 4 mg Pantoprazole Sodium (Protonix Ec Tab) 40 mg PO DAILY [facility] Last Admin: 02/11/17 10:14 Dose: 40 mg Sevelamer HCl (Renagel) 2,400 mg PO TID [facility] Last Admin: 02/11/17 10:13 Dose: 2,400 mg Sitagliptin Phosphate (Januvia) 25 mg PO DAILY [facility] Last Admin: 02/11/17 10:18 Dose: 25 mg Tramadol HCl (Ultram) 50 mg PO Q12 PRN PRN Reason: Pain, moderate (4-7) Last Admin: 02/11/17 10:09 Dose: 50 mg Vitamin B Complex/Vit C/Folic Acid (Nephro-Niko) 1 tab PO DAILY [facility] Last Admin: 02/11/17 10:17 Dose: 1 tab - Labs Labs: 02/11/17 04:15 02/11/17 04:15 PT 14.1 Seconds (9.8-13.1) H 02/07/17 06:05 INR 1.2 (0.9-1.2) 02/07/17 06:05 APTT 30.3 Seconds (25.6-37.1) 02/07/17 06:05 - Respiratory Exam Respiratory Exam: Decreased Breath Sounds - Cardiovascular Exam Cardiovascular Exam: REGULAR RHYTHM, +S1, +S2 - Extremities Exam Additional comments: RIGHT FOOT IS WARM BUT ANTERIOR HALF OF THE FOOT IS VERY CYANOTIC, THE ULCERS ARE THE SAME BUT THE TOES APPEAR GANGRENOUS Assessment and Plan - Assessment and Plan (Free Text) Assessment: SEPSIS BUT IMPROVING ON ANTIBIOTICS AND BP IS NOW STABLE OFF NOREPINEPHRINE PAD WITH SEVERE CYANOSIS OF THE RIGHT FOOT AND GANGRENOUS APPEARANCE OF THE TOES CAD CRF ON HD DM Plan: CONTINUE IV ANTIBIOTICS, ASPIRIN, HEPARIN, ATORVASTATIN PATIENT DISCUSSED WITH DR COLLINS AND WE WILL TRY TO GET CT ANGIO OF LE TODAY DUE TO THE ISCHEMIC CHANGES OF THE RIGHT FOOT-THE PATIENT ALREADY HAS CRF AND HE IS ON CHRONIC HD SO INJURY FROM THE CT CONTRAST SHOULD NOT BE AN ISSUE HERE WE NEED TO SEE IF THE RIGHT FOOT CAN BE SALVAGED
--- NOTE | 2017-02-11 13:42 | CARD ---
APPROVED REPORT EKG Measurement Heart [id number] <Conclusion> Ventricular-paced rhythm with occasional premature ventricular complexes Abnormal ECG
[2017-02-11] MEDS: HYDROmorphone 0.5 mg/0.5 ml ISec IVP PRN (15:39)
[2017-02-12 05:13] LABS: HEMATOCRIT 30.2 % (35.0-51.0); MEAN CELL VOLUME 73.3 fl (80.0-94.0); MEAN CORPUSCULAR HEMOGLOBIN 21.8 pg (27.0-31.0); MEAN CORPUSCULAR HGB CONC 29.8 g/dL (33.0-37.0); WHITE BLOOD COUNT 12.8 K/uL (4.8-10.8)
[2017-02-12 05:27] LABS: ALB/GLOB RATIO 1.1 (1.0-2.1); BILIRUBIN,TOTAL 0.6 mg/dl (0.2-1.3); CALCIUM 8.9 mg/dL (8.4-10.2); POTASSIUM 3.6 MMOL/L (3.6-5.0); TOTAL PROTEIN 7.4 G/DL (6.3-8.2)
[2017-02-12] MEDS: Insulin Regular 100 units/ml SC SCH ×4 (06:43→22:19)
--- NOTE | 2017-02-12 08:32 | CP.PCM.PN ---
<Jhonny Deluca - Last Filed: 02/12/17 15:37> Subjective - Date & Time of Evaluation Date of Evaluation: 02/12/17 Time of Evaluation: 10:37 - Subjective Subjective: Patient seen and evaluated at bedside with attending. No acute events overnight. Not requiring pressors at this time. Vitals stable. Continues to complain of right toe/foot pain. No fever/chills overnight. HD yesterday unremarkable. Spoke with nursing staff, systems testing laboratory technician, and consultants. Objective - Vital Signs/Intake and Output Vital Signs (last 24 hours): Temp Pulse Resp BP Pulse Ox 97.6 F 80 16 143/62 99 02/12/17 08:08 02/12/17 08:08 02/12/17 08:08 02/12/17 08:08 02/12/17 08:08 Intake and Output: 02/12/17 02/12/17 06:59 18:59 Intake Total 346 125 Balance 346 125 - Medications Medications: Current Medications Acetaminophen (Tylenol 325mg Tab) 650 mg PO Q6 PRN PRN Reason: Pain, moderate (4-7) Aspirin (Ecotrin) 81 mg PO DAILY [facility] Last Admin: 02/07/17 09:00 Dose: Not Given Atorvastatin Calcium (Lipitor) 10 mg PO HS [facility] Last Admin: 02/11/17 21:26 Dose: 10 mg Epoetin Avery (Procrit) 3,000 unit SC MWF [facility] Epoetin Avery (Procrit) 5,000 unit IV MWF [facility] Heparin Sodium (Porcine) (Heparin) 5,000 units SC Q8 [facility] PRN Reason: Protocol Last Admin: 02/07/17 09:00 Dose: Not Given Hydromorphone HCl (Dilaudid) 0.5 mg IVP Q6 PRN PRN Reason: Pain, severe (8-10) Last Admin: 02/11/17 15:39 Dose: 0.5 mg Vancomycin HCl 1 gm/ Sodium (Chloride) 250 mls @ 166.667 mls/hr IVPB DAILY [facility] Last Admin: 02/11/17 10:18 Dose: 166.667 mls/hr Piperacillin Sod/Tazobactam (Sod 2.25 gm/ Sodium Chloride) 100 mls @ 100 mls/ hr IVPB Q8 [facility] Last Admin: 02/12/17 00:11 Dose: 100 mls/hr Insulin Human Regular (Humulin R) 0 units SC ACHS [facility] PRN Reason: Protocol Last Admin: 02/12/17 06:43 Dose: 2 units Ondansetron HCl (Zofran Inj) 4 mg IVP Q6 PRN PRN Reason: Nausea/Vomiting Last Admin: 02/07/17 18:47 Dose: 4 mg Pantoprazole Sodium (Protonix Ec Tab) 40 mg PO DAILY [facility] Last Admin: 02/11/17 10:14 Dose: 40 mg Sevelamer HCl (Renagel) 2,400 mg PO TID [facility] Last Admin: 02/11/17 16:17 Dose: 2,400 mg Sitagliptin Phosphate (Januvia) 25 mg PO DAILY [facility] Last Admin: 02/11/17 10:18 Dose: 25 mg Tramadol HCl (Ultram) 50 mg PO Q12 PRN PRN Reason: Pain, moderate (4-7) Last Admin: 02/11/17 21:24 Dose: 50 mg Vitamin B Complex/Vit C/Folic Acid (Nephro-Niko) 1 tab PO DAILY [facility] Last Admin: 02/11/17 10:17 Dose: 1 tab - Labs Labs: 02/12/17 04:00 02/12/17 04:00 PT 14.1 Seconds (9.8-13.1) H 02/07/17 06:05 INR 1.2 (0.9-1.2) 02/07/17 06:05 APTT 30.3 Seconds (25.6-37.1) 02/07/17 06:05 - Constitutional Appears: Non-toxic, No Acute Distress - Head Exam Head Exam: ATRAUMATIC, NORMAL INSPECTION, NORMOCEPHALIC - Eye Exam Eye Exam: Normal appearance - Respiratory Exam Respiratory Exam: Clear to Ausculation Bilateral, NORMAL BREATHING PATTERN - Cardiovascular Exam Cardiovascular Exam: REGULAR RHYTHM, +S1, +S2. absent: Murmur - GI/Abdominal Exam GI & Abdominal Exam: Soft, Normal Bowel Sounds. absent: Tenderness - Extremities Exam Additional comments: right foot noted 2nd toe gangrenous - Neurological Exam Neurological Exam: Alert, Awake - Psychiatric Exam Psychiatric exam: Normal Affect, Normal Mood - Skin Skin Exam: Dry, Intact, Normal Color, Warm Assessment and Plan (1) Ulcer of foot Assessment & Plan: Right foot, 1st/2nd toe Continues to have pain PAD? labs reviewed; WBC 12.8, afebrile, essentially unchanged from yesterday ID on board, appreciate input wound cx,x rays reviewed f/u TUTU/PVR, Bone scan (r/o OM) Spoke with Dr. Ferris regarding coordination of Angio at [facility] and HD Podiatry on board, appreciate input Vascular on board, appreciate input Status: Chronic (2) Sepsis Assessment & Plan: Secondary to RLL pneumonia with pleural effusion WBC 12.8, trending down though unchanged from yesterday Afebrile BP wnl ID on board, appreciate input Status: Acute (3) Diabetes Assessment & Plan: Type 2 NIIDM ISS c/w home meds diabetic diet Accuchecks ACHS Status: Chronic (4) ESRD (end stage renal disease) on dialysis Assessment & Plan: on HD (M/W/F) Renal on board, appreciate input Renal diet c/w home meds Status: Chronic (5) CHF (congestive heart failure) Assessment & Plan: Systolic, Chronic LVEF ~ 20-25% WITH A DEFIBRILLATOR Cardiology on board, appreciate recommendations Status: Chronic (6) Pelvic ring fracture Assessment & Plan: Noted on CT scan of abdomen fall 2 months ago ortho on board, appreciate input PT Status: Acute (7) Anemia Assessment & Plan: 2ndary to renal disease Stable hgb 9.0 at this time Status: Acute <Rocco Huff L - Last Filed: 02/15/17 19:28> Objective - Vital Signs/Intake and Output Vital Signs (last 24 hours): Temp Pulse Resp BP Pulse Ox 97.7 F 81 14 111/57 L 97 02/15/17 15:49 02/15/17 18:00 02/15/17 18:00 02/15/17 18:00 02/15/17 18:00 Intake and Output: 02/15/17 02/16/17 18:59 06:59 Intake Total 460 Balance 460 - Medications Medications: Current Medications Acetaminophen (Tylenol 325mg Tab) 650 mg PO Q6 PRN PRN Reason: Pain, moderate (4-7) Aspirin (Ecotrin) 81 mg PO DAILY [facility] Last Admin: 02/07/17 09:00 Dose: Not Given Atorvastatin Calcium (Lipitor) 10 mg PO HS [facility] Last Admin: 02/14/17 21:36 Dose: 10 mg Epoetin Avery (Procrit) 15,000 unit IV MWF [facility] Last Admin: 02/13/17 10:16 Dose: 15,000 unit Heparin Sodium (Porcine) (Heparin) 5,000 units SC Q8 [facility] PRN Reason: Protocol Last Admin: 02/07/17 09:00 Dose: Not Given Cefepime HCl 1 gm/ Sodium (Chloride) 100 mls @ 100 mls/hr IVPB DAILY [facility] Last Admin: 02/15/17 08:33 Dose: 100 mls/hr Insulin Human Regular (Humulin R) 0 units SC ACHS [facility] PRN Reason: Protocol Last Admin: 02/15/17 17:28 Dose: 3 units Ondansetron HCl (Zofran Inj) 4 mg IVP Q6 PRN PRN Reason: Nausea/Vomiting Last Admin: 02/15/17 00:24 Dose: 4 mg Pantoprazole Sodium (Protonix Ec Tab) 40 mg PO DAILY [facility] Last Admin: 02/15/17 08:33 Dose: 40 mg Sevelamer HCl (Renagel) 2,400 mg PO TID [facility] Last Admin: 02/15/17 17:27 Dose: 2,400 mg Sitagliptin Phosphate (Januvia) 25 mg PO DAILY [facility] Last Admin: 02/15/17 08:32 Dose: 25 mg Tramadol HCl (Ultram) 50 mg PO Q4 PRN PRN Reason: Pain, moderate (4-7) Last Admin: 02/15/17 17:30 Dose: 50 mg Vitamin B Complex/Vit C/Folic Acid (Nephro-Niko) 1 tab PO DAILY [facility] Last Admin: 02/15/17 08:32 Dose: 1 tab - Labs Labs: 02/15/17 04:30 02/15/17 04:30 PT 14.7 Seconds (9.8-13.1) H 02/13/17 04:00 INR 1.3 (0.9-1.2) H 02/13/17 04:00 APTT 28.6 Seconds (25.6-37.1) 02/13/17 04:00 Assessment and Plan (1) Cholelithiasis Status: Acute (2) PAD (peripheral artery disease) Status: Acute (3) Ulcer of foot Status: Chronic (4) Gallbladder polyp Status: Acute (5) CKD (chronic kidney disease) stage 5, GFR less than 15 ml/min Status: Acute (6) Pelvic ring fracture Status: Acute - Assessment and Plan (Free Text) Plan: I was present during evaluation and discussed with Dr Deluca re plans of care and treatment. Rocco Huff M.D.
[2017-02-12] MEDS: Pantoprazole 40 mg EC Tab PO SCH (08:56)
[2017-02-12] MEDS: Multivitamin Vitamin B Complex (Nephro-Vite) Tab PO SCH (08:56)
--- NOTE | 2017-02-12 10:20 | CP.PCM.PN ---
Subjective - Date & Time of Evaluation Date of Evaluation: 02/12/17 Time of Evaluation: 10:18 - Subjective Subjective: 76 y/o male seen at bedside in ICU today for f/u of right hallux necrotic wounds and right 2nd digit gangrene. Pt seen resting comfortably in bed at time of visit. Patient had dialysis yesterday. Patient refuses to wear offloading prevlon boots while in bed. Patient complains of pain to the right big toe today , but states that he just received pain medication and that has been helping. Deneis f/n/v/c/sob/cp at this time. Denies any other pedal complaints today. Objective - Vital Signs/Intake and Output Vital Signs (last 24 hours): Temp Pulse Resp BP Pulse Ox 97.6 F 80 18 117/54 L 97 02/12/17 08:08 02/12/17 10:00 02/12/17 10:00 02/12/17 10:00 02/12/17 10:00 Intake and Output: 02/12/17 02/12/17 06:59 18:59 Intake Total 346 585 Balance 346 585 - Medications Medications: Current Medications Acetaminophen (Tylenol 325mg Tab) 650 mg PO Q6 PRN PRN Reason: Pain, moderate (4-7) Aspirin (Ecotrin) 81 mg PO DAILY [facility] Last Admin: 02/07/17 09:00 Dose: Not Given Atorvastatin Calcium (Lipitor) 10 mg PO HS [facility] Last Admin: 02/11/17 21:26 Dose: 10 mg Epoetin Avery (Procrit) 3,000 unit SC MWF [facility] Epoetin Avery (Procrit) 5,000 unit IV MWF [facility] Heparin Sodium (Porcine) (Heparin) 5,000 units SC Q8 [facility] PRN Reason: Protocol Last Admin: 02/07/17 09:00 Dose: Not Given Hydromorphone HCl (Dilaudid) 0.5 mg IVP Q6 PRN PRN Reason: Pain, severe (8-10) Last Admin: 02/11/17 15:39 Dose: 0.5 mg Vancomycin HCl 1 gm/ Sodium (Chloride) 250 mls @ 166.667 mls/hr IVPB DAILY [facility] Last Admin: 02/12/17 09:15 Dose: 166.667 mls/hr Piperacillin Sod/Tazobactam (Sod 2.25 gm/ Sodium Chloride) 100 mls @ 100 mls/ hr IVPB Q8 [facility] Last Admin: 02/12/17 08:58 Dose: 100 mls/hr Insulin Human Regular (Humulin R) 0 units SC ACHS [facility] PRN Reason: Protocol Last Admin: 02/12/17 06:43 Dose: 2 units Ondansetron HCl (Zofran Inj) 4 mg IVP Q6 PRN PRN Reason: Nausea/Vomiting Last Admin: 02/07/17 18:47 Dose: 4 mg Pantoprazole Sodium (Protonix Ec Tab) 40 mg PO DAILY [facility] Last Admin: 02/12/17 08:56 Dose: 40 mg Sevelamer HCl (Renagel) 2,400 mg PO TID [facility] Last Admin: 02/12/17 08:57 Dose: 2,400 mg Sitagliptin Phosphate (Januvia) 25 mg PO DAILY [facility] Last Admin: 02/12/17 08:56 Dose: 25 mg Tramadol HCl (Ultram) 50 mg PO Q12 PRN PRN Reason: Pain, moderate (4-7) Last Admin: 02/12/17 09:12 Dose: 50 mg Vitamin B Complex/Vit C/Folic Acid (Nephro-Niko) 1 tab PO DAILY [facility] Last Admin: 02/12/17 08:56 Dose: 1 tab - Labs Labs: 02/12/17 04:00 02/12/17 04:00 PT 14.1 Seconds (9.8-13.1) H 02/07/17 06:05 INR 1.2 (0.9-1.2) 02/07/17 06:05 APTT 30.3 Seconds (25.6-37.1) 02/07/17 06:05 - Constitutional Appears: Well, Non-toxic, No Acute Distress - Extremities Exam Additional comments: Right foot focused: VASC: DP/PT pulses are non palpable, TG: warm to cool, SOLDERING TECHNICIAN: < 4 sec to all digits, mild edema noted on the 1st and 2nd digit, gangrenous changes noted to 2nd digit with dusky, purplish discoloration DERM: mild edema and erythema noted to the 1st and 2nd digit, no active drainage , no probe to bone, no malodor, no ascending cellulitis, 2nd digit appears dusky and discolored with gangrenous changes- boggy and wet distal tip, necrotic eschar noted to medial hallux and dorsal hallucal nail NEURO: pedal sensation is grossly intact ORTHO: pain on palpation of the 1st and 2nd digit of the right foot - Neurological Exam Neurological Exam: Alert, Awake, Oriented x3 - Psychiatric Exam Psychiatric exam: Normal Affect, Normal Mood Assessment and Plan - Assessment and Plan (Free Text) Assessment: 76 y/o male seen at bedside for R hallux necrotic wound, 2nd digit ulceration with gangrenous changes secondary to diabetes and PAD Plan: Pt S&E at bedside Plan discussed with attending Dr. Lebron Chart labs and vitals reviewed: WBC 12.8 today (from 12.3) Low ext vascular studies remain pending: TUTU/PVR, CT angiogram Bone scan right foot pending (r/o OM) Advised pt to wear offloading prevalon boots to avoid heel ulcerations, however patient is refusing No foot dressing needed at this time. Per ortho, patient is to be toe touch weight bearing to the left low ext Podiatry will follow
--- NOTE | 2017-02-12 11:10 | CP.PCM.PN ---
Subjective - Date & Time of Evaluation Date of Evaluation: 02/12/17 Time of Evaluation: 11:06 - Subjective Subjective: Patient and bed awake Complaining of right foot pain Patient completed hemodialysis yesterday Objective - Vital Signs/Intake and Output Vital Signs (last 24 hours): Temp Pulse Resp BP Pulse Ox 97.6 F 80 18 117/54 L 97 02/12/17 08:08 02/12/17 10:00 02/12/17 10:00 02/12/17 10:00 02/12/17 10:00 Intake and Output: 02/12/17 02/12/17 06:59 18:59 Intake Total 346 955 Balance 346 955 - Medications Medications: Current Medications Acetaminophen (Tylenol 325mg Tab) 650 mg PO Q6 PRN PRN Reason: Pain, moderate (4-7) Aspirin (Ecotrin) 81 mg PO DAILY [facility] Last Admin: 02/07/17 09:00 Dose: Not Given Atorvastatin Calcium (Lipitor) 10 mg PO HS [facility] Last Admin: 02/11/17 21:26 Dose: 10 mg Heparin Sodium (Porcine) (Heparin) 5,000 units SC Q8 [facility] PRN Reason: Protocol Last Admin: 02/07/17 09:00 Dose: Not Given Hydromorphone HCl (Dilaudid) 0.5 mg IVP Q6 PRN PRN Reason: Pain, severe (8-10) Last Admin: 02/11/17 15:39 Dose: 0.5 mg Insulin Human Regular (Humulin R) 0 units SC ACHS [facility] PRN Reason: Protocol Last Admin: 02/12/17 11:03 Dose: 1 units Ondansetron HCl (Zofran Inj) 4 mg IVP Q6 PRN PRN Reason: Nausea/Vomiting Last Admin: 02/07/17 18:47 Dose: 4 mg Pantoprazole Sodium (Protonix Ec Tab) 40 mg PO DAILY [facility] Last Admin: 02/12/17 08:56 Dose: 40 mg Sevelamer HCl (Renagel) 2,400 mg PO TID [facility] Last Admin: 02/12/17 08:57 Dose: 2,400 mg Sitagliptin Phosphate (Januvia) 25 mg PO DAILY [facility] Last Admin: 02/12/17 08:56 Dose: 25 mg Tramadol HCl (Ultram) 50 mg PO Q12 PRN PRN Reason: Pain, moderate (4-7) Last Admin: 02/12/17 09:12 Dose: 50 mg Vitamin B Complex/Vit C/Folic Acid (Nephro-Niko) 1 tab PO DAILY [facility] Last Admin: 02/12/17 08:56 Dose: 1 tab - Labs Labs: 02/12/17 04:00 02/12/17 04:00 PT 14.1 Seconds (9.8-13.1) H 02/07/17 06:05 INR 1.2 (0.9-1.2) 02/07/17 06:05 APTT 30.3 Seconds (25.6-37.1) 02/07/17 06:05 - Constitutional Appears: No Acute Distress - ENT Exam ENT Exam: Mucous Membranes Moist - Respiratory Exam Respiratory Exam: NORMAL BREATHING PATTERN. absent: Chest Wall Tenderness - Cardiovascular Exam Cardiovascular Exam: absent: JVD, Rubs - GI/Abdominal Exam GI & Abdominal Exam: Normal Bowel Sounds - Extremities Exam Extremities Exam: absent: Calf Tenderness - Back Exam Back Exam: absent: CVA tenderness (L), CVA tenderness (R) - Neurological Exam Neurological Exam: Alert - Psychiatric Exam Psychiatric exam: Anxious Assessment and Plan (1) Ulcer of foot Status: Chronic (2) CHF (congestive heart failure) Status: Chronic (3) ESRD (end stage renal disease) on dialysis Assessment & Plan: Patient with end stage renal disease continue hemodialysis MWF. I hold vancomycin now not to be given until we get serum level vancomycin to make a decision about the dose and to reported to the infectious disease. I changed. Patient from 8000 unit to 15,000 units because of the anemia. Discussed with PCP to called the shoe cobbler for the right foot ulcer to do angiogram and stenting if possible . Also called podiatry because of the worsening of the gangrene of the second toe of the right foot which I think May need to be amputated along with the big toe perhaps. Status: Chronic
--- NOTE | 2017-02-12 11:48 | CP.CCUPN ---
CCU Subjective - Physician Review Events Since Last Encounter (Free Text): 02/12/17 The Patient was seen and examined at the bedside with the ICU team. Management issues were discussed and formulated, Events reviewed. Patient comfortable, Improved respiratory status, Off BIPAP, Saturating well on 3L via nasal cannula. AFebrile No CP/SOB, Only complain of right foot pain,, Pulses palpable fair quality ESRD, Had HD yesterday Scheduled for Bone scan today, and ABD CT Angiography with Ileofem runoff tomorrow prior to HD. CCU Objective - Vital Signs / Intake & Output Vital Signs (Last 4 hours): Vital Signs Temp Pulse Resp BP Pulse Ox 02/12/17 10:00 80 18 117/54 L 97 02/12/17 09:20 80 18 122/57 L 100 02/12/17 08:08 97.6 F 80 16 143/62 99 Intake and Output (Last 8hrs): Intake & Output 02/11/17 02/12/17 02/12/17 22:59 06:59 14:59 Intake Total 288 162 955 Balance 288 162 955 Weight 154 lb 4.8 oz Intake: IV 18 12 Intake, Piggyback 100 100 350 Oral 170 50 605 Other: # Bowel Movements 1 1 - Physical Exam Head: Positive for: Atraumatic, Normocephalic Pupils: Positive for: PERRL Conjunctiva: Positive for: Normal Ears: Positive for: Normal Mouth: Positive for: Moist Mucous Membranes Pharnyx: Positive for: Normal Nose (External): Positive for: Atraumatic Neck: Positive for: Normal Range of Motion Respiratory/Chest: Positive for: Rhonchi Cardiovascular: Positive for: Regular Rate and Rhythm, Normal S1, S2 Abdomen: Positive for: Normal Bowel Sounds Upper Extremity: Positive for: Normal Inspection Lower Extremity: Positive for: Other (Rt 2nd toe ulcer) Psychiatric: Positive for: Alert - Medications Active Medications: Active Medications Generic Name Dose Route Start Last Admin Trade Name Freq PRN Reason Stop Dose Admin Acetaminophen 650 mg 02/06/17 16:45 Tylenol 325mg Tab PO Q6 PRN Pain, moderate (4-7) Aspirin 81 mg 02/07/17 09:00 02/07/17 09:00 Ecotrin PO Not Given DAILY [facility] Atorvastatin Calcium 10 mg 02/06/17 22:00 02/11/17 21:26 Lipitor PO 10 mg HS [facility] Administration Epoetin Avery 15,000 unit 02/13/17 09:00 Procrit IV MWF [facility] Heparin Sodium (Porcine) 5,000 units 02/06/17 17:00 02/07/17 09:00 Heparin SC Not Given Q8 [facility] Protocol Hydromorphone HCl 0.5 mg 02/11/17 15:14 02/11/17 15:39 Dilaudid IVP 0.5 mg Q6 PRN Administration Pain, severe (8-10) Insulin Human Regular 0 units 02/06/17 22:00 02/12/17 11:03 Humulin R SC 1 units ACHS [facility] Administration Protocol Ondansetron HCl 4 mg 02/07/17 18:14 02/07/17 18:47 Zofran Inj IVP 4 mg Q6 PRN Administration Nausea/Vomiting Pantoprazole Sodium 40 mg 02/07/17 09:00 02/12/17 08:56 Protonix Ec Tab PO 40 mg DAILY [facility] Administration Sevelamer HCl 2,400 mg 02/06/17 17:00 02/12/17 08:57 Renagel PO 2,400 mg TID [facility] Administration Sitagliptin Phosphate 25 mg 02/07/17 09:00 02/12/17 08:56 Januvia PO 25 mg DAILY [facility] Administration Tramadol HCl 50 mg 02/11/17 09:57 02/12/17 09:12 Ultram PO 50 mg Q12 PRN Administration Pain, moderate (4-7) Vitamin B Complex/Vit C/Folic Acid 1 tab 02/07/17 09:00 02/12/17 08:56 Nephro-Niko PO 1 tab DAILY [facility] Administration - Patient Studies Lab Studies: Microbiology Studies 02/09/17 08:50 Blood Culture - Preliminary Blood NO GROWTH AFTER 3 DAYS 02/09/17 08:50 Blood Culture - Preliminary Blood NO GROWTH AFTER 3 DAYS Lab Studies 02/12/17 02/12/17 02/12/17 Range/Units 10:59 04:10 04:00 WBC (4.8-10.8) K/uL RBC (4.40-5.90) Mil/uL Hgb (12.0-18.0) g/dL Hct (35.0-51.0) % MCV (80.0-94.0) fl MCH (27.0-31.0) pg MCHC (33.0-37.0) g/dL RDW (11.5-14.5) % Plt Count (130-400) K/uL Sodium 137 (132-148) mmol/l Potassium 3.6 (3.6-5.0) MMOL/L Chloride 95 L (98-107) mmol/L Carbon Dioxide 26 (22-30) mmol/L Anion Gap 20 (10-20) BUN 29 H (9-20) mg/dl Creatinine 4.4 H (0.8-1.5) mg/dL Est GFR ( Amer) 16 Est GFR (Non-Af Amer) 13 POC Glucose (mg/dL) 167 H 203 H (65-110) mg/dL Random Glucose 204 H (75-110) mg/dL Calcium 8.9 (8.4-10.2) mg/dL Total Bilirubin 0.6 (0.2-1.3) mg/dl AST 18 (17-59) U/L ALT 26 (21-72) U/L Alkaline Phosphatase 98 (38-126) U/L Total Protein 7.4 (6.3-8.2) G/DL Albumin 3.9 (3.5-5.0) g/dL Globulin 3.5 (2.2-3.9) gm/dL Albumin/Globulin Ratio 1.1 (1.0-2.1) 02/12/17 02/11/17 02/11/17 Range/Units 04:00 21:17 15:44 WBC 12.8 H (4.8-10.8) K/uL RBC 4.12 L (4.40-5.90) Mil/uL Hgb 9.0 L (12.0-18.0) g/dL Hct 30.2 L (35.0-51.0) % MCV 73.3 L (80.0-94.0) fl MCH 21.8 L (27.0-31.0) pg MCHC 29.8 L (33.0-37.0) g/dL RDW 20.0 H (11.5-14.5) % Plt Count 232 (130-400) K/uL Sodium (132-148) mmol/l Potassium (3.6-5.0) MMOL/L Chloride (98-107) mmol/L Carbon Dioxide (22-30) mmol/L Anion Gap (10-20) BUN (9-20) mg/dl Creatinine (0.8-1.5) mg/dL Est GFR ( Amer) Est GFR (Non-Af Amer) POC Glucose (mg/dL) 328 H 264 H (65-110) mg/dL Random Glucose (75-110) mg/dL Calcium (8.4-10.2) mg/dL Total Bilirubin (0.2-1.3) mg/dl AST (17-59) U/L ALT (21-72) U/L Alkaline Phosphatase (38-126) U/L Total Protein (6.3-8.2) G/DL Albumin (3.5-5.0) g/dL Globulin (2.2-3.9) gm/dL Albumin/Globulin Ratio (1.0-2.1) Laboratory Results - last 24 hr 02/11/17 02/11/17 02/12/17 15:44 21:17 04:00 WBC 12.8 H RBC 4.12 L Hgb 9.0 L Hct 30.2 L MCV 73.3 L MCH 21.8 L MCHC 29.8 L RDW 20.0 H Plt Count 232 Sodium Potassium Chloride Carbon Dioxide Anion Gap BUN Creatinine Est GFR ( Amer) Est GFR (Non-Af Amer) POC Glucose (mg/dL) 264 H 328 H Random Glucose Calcium Total Bilirubin AST ALT Alkaline Phosphatase Total Protein Albumin Globulin Albumin/Globulin Ratio 02/12/17 02/12/17 02/12/17 04:00 04:10 10:59 WBC RBC Hgb Hct MCV MCH MCHC RDW Plt Count Sodium 137 Potassium 3.6 Chloride 95 L Carbon Dioxide 26 Anion Gap 20 BUN 29 H Creatinine 4.4 H Est GFR ( Amer) 16 Est GFR (Non-Af Amer) 13 POC Glucose (mg/dL) 203 H 167 H Random Glucose 204 H Calcium 8.9 Total Bilirubin 0.6 AST 18 ALT 26 Alkaline Phosphatase 98 Total Protein 7.4 Albumin 3.9 Globulin 3.5 Albumin/Globulin Ratio 1.1 EKG/Cardiology Studies: Cardiology / EKG Studies 02/11/17 11:22 ELECTROCARDIOGRAM Routine Reason For Exam: ISCHIMIA CHANGES Fingerstick Blood Sugar Results: 167 Review of Systems - Cardiovascular Cardiovascular: absent: As Per HPI, Acrocyanosis, Chest Pain, Chest Pain at Rest , Chest Pain with Activity, Claudication, Diaphoresis, Dyspnea, Dyspnea on Exertion, Edema, Irregular Heart Rhythm, Pain Radiating to Arm/Neck/Jaw, Leg Edema, Leg Ulcers, Lightheadedness, Orthopnea, Palpitations, Paroxysmal Nocturnal Dyspnea, Pedal Edema, Radiating Pain, Rapid Heart Rate, Slow Heart Rate, Syncope, Other, UNREMARKABLE - Respiratory Respiratory: absent: As Per HPI, Cough, Dyspnea, Hemoptysis, Dyspnea on Exertion , Wheezing, Snoring, Stridor, Pain on Inspiration, Chest Congestion, Excessive Mucous Production, Change in Mucous Color, Pain with Coughing, Other, UNREMARKABLE Critical Care Progress Note - Nutrition Nutrition: Nutrition Category Date Time Status Renal Diet [DIET] Diets 02/08/17 Dinner Active Assessment/Plan (1) Respiratory insufficiency Current Visit: Yes Status: Acute Comment: Improved respiratory status, Off BIPAP Secondary to R PNA kimberly effusion and sepsis Continue Antiobiotics Suplemental Oxygen (2) Ischemic cardiomyopathy Current Visit: Yes Status: Acute (3) PAD (peripheral artery disease) Current Visit: Yes Status: Acute Comment: RLE Revascularizaton on (4) Ulcer of foot Current Visit: Yes Status: Chronic (5) ESRD needing dialysis Current Visit: No Status: Acute (6) CHF (congestive heart failure) Current Visit: No Status: Chronic Comment: -Likely Acute on Chronic -Unable to determine the type ( Diastolic Vs systolic) -Troponin X1: Negative -Pro-BNP: [id number] -EKG: Atrial sensed ventricular paced rythm -CXR: Right sided pleural effusion -X-ray Abdomen: Hepatomegaly -Continue medication -Daily weight check -Maintain Scheduled dialysis -F/U cardiology consult Today january 26. Patient admitted with volume overloaded congestive heart failure hepatomegaly possibly ascites with end-stage renal disease on maintenance hemodialysis. Scheduled to have dialysis right now. And also a small dialysis tomorrow for more ultrafiltration and CT scan of the abdomen because of the distended abdomen and hepatomegaly Today November 27. He was seen on hemodialysis to remove about 1500 cc of fluid status post CT scan with IV contrast of the abdomen report pending. 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 (7) ESRD (end stage renal disease) on dialysis Current Visit: No Status: Chronic
--- NOTE | 2017-02-12 12:16 | CP.PCM.PN ---
<Anthony Johnson - Last Filed: 02/12/17 12:22> Subjective - Date & Time of Evaluation Date of Evaluation: 02/12/17 Time of Evaluation: 07:45 - Subjective Subjective: NO CHEST PAIN OR SOB FEELS STRONGER TODAY RT FOOT PAIN A LITTLE LESS TODAY Objective - Vital Signs/Intake and Output Vital Signs (last 24 hours): Temp Pulse Resp BP Pulse Ox 97.6 F 80 18 117/54 L 97 02/12/17 08:08 02/12/17 10:00 02/12/17 10:00 02/12/17 10:00 02/12/17 10:00 Intake and Output: 02/12/17 02/12/17 06:59 18:59 Intake Total 346 955 Balance 346 955 - Medications Medications: Current Medications Acetaminophen (Tylenol 325mg Tab) 650 mg PO Q6 PRN PRN Reason: Pain, moderate (4-7) Aspirin (Ecotrin) 81 mg PO DAILY [facility] Last Admin: 02/07/17 09:00 Dose: Not Given Atorvastatin Calcium (Lipitor) 10 mg PO HS [facility] Last Admin: 02/11/17 21:26 Dose: 10 mg Epoetin Avery (Procrit) 15,000 unit IV MWF [facility] Heparin Sodium (Porcine) (Heparin) 5,000 units SC Q8 [facility] PRN Reason: Protocol Last Admin: 02/07/17 09:00 Dose: Not Given Hydromorphone HCl (Dilaudid) 0.5 mg IVP Q6 PRN PRN Reason: Pain, severe (8-10) Last Admin: 02/11/17 15:39 Dose: 0.5 mg Insulin Human Regular (Humulin R) 0 units SC ACHS [facility] PRN Reason: Protocol Last Admin: 02/12/17 11:03 Dose: 1 units Ondansetron HCl (Zofran Inj) 4 mg IVP Q6 PRN PRN Reason: Nausea/Vomiting Last Admin: 02/07/17 18:47 Dose: 4 mg Pantoprazole Sodium (Protonix Ec Tab) 40 mg PO DAILY [facility] Last Admin: 02/12/17 08:56 Dose: 40 mg Sevelamer HCl (Renagel) 2,400 mg PO TID [facility] Last Admin: 02/12/17 08:57 Dose: 2,400 mg Sitagliptin Phosphate (Januvia) 25 mg PO DAILY [facility] Last Admin: 02/12/17 08:56 Dose: 25 mg Tramadol HCl (Ultram) 50 mg PO Q12 PRN PRN Reason: Pain, moderate (4-7) Last Admin: 02/12/17 09:12 Dose: 50 mg Vitamin B Complex/Vit C/Folic Acid (Nephro-Niko) 1 tab PO DAILY [facility] Last Admin: 02/12/17 08:56 Dose: 1 tab - Labs Labs: 02/12/17 04:00 02/12/17 04:00 PT 14.1 Seconds (9.8-13.1) H 02/07/17 06:05 INR 1.2 (0.9-1.2) 02/07/17 06:05 APTT 30.3 Seconds (25.6-37.1) 02/07/17 06:05 - Respiratory Exam Respiratory Exam: Decreased Breath Sounds - Cardiovascular Exam Cardiovascular Exam: REGULAR RHYTHM, +S1, +S2 - Extremities Exam Additional comments: RIGHT FOOT ABOUT THE SAME WITH CYANOSIS AND TOE ULCERS AND GANGRENOUS CHANGES - Additional Findings 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 C+S NO GROWTH SO FAR Assessment and Plan - Assessment and Plan (Free Text) Assessment: CAD PAD WITH ISCHEMIC CHANGES OF RIGHT FOOT CRF ON HD DM Plan: I SPOKE TO DR ROBERSON WHO WILL LET THE PATIENT HAVE HD TOMORROW AND TAKE HIM TO SATURDAY TO SEE IF HE CAN HAVE REVASCULARIZATION OF THE RLE CONTINUE ASPIRIN, HEPARIN AND ATORVASTATIN <Kareem Christensen - Last Filed: 02/12/17 16:36> Objective - Vital Signs/Intake and Output Vital Signs (last 24 hours): Temp Pulse Resp BP Pulse Ox 98.3 F 85 22 134/64 100 02/12/17 16:00 02/12/17 16:00 02/12/17 16:00 02/12/17 16:00 02/12/17 16:00 Intake and Output: 02/12/17 02/12/17 06:59 18:59 Intake Total 346 1195 Balance 346 1195 - Medications Medications: Current Medications Acetaminophen (Tylenol 325mg Tab) 650 mg PO Q6 PRN PRN Reason: Pain, moderate (4-7) Aspirin (Ecotrin) 81 mg PO DAILY [facility] Last Admin: 02/07/17 09:00 Dose: Not Given Atorvastatin Calcium (Lipitor) 10 mg PO HS [facility] Last Admin: 02/11/17 21:26 Dose: 10 mg Epoetin Avery (Procrit) 15,000 unit IV MWF [facility] Heparin Sodium (Porcine) (Heparin) 5,000 units SC Q8 [facility] PRN Reason: Protocol Last Admin: 02/07/17 09:00 Dose: Not Given Hydromorphone HCl (Dilaudid) 0.5 mg IVP Q6 PRN PRN Reason: Pain, severe (8-10) Last Admin: 02/11/17 15:39 Dose: 0.5 mg Insulin Human Regular (Humulin R) 0 units SC ACHS [facility] PRN Reason: Protocol Last Admin: 02/12/17 16:09 Dose: 2 units Ondansetron HCl (Zofran Inj) 4 mg IVP Q6 PRN PRN Reason: Nausea/Vomiting Last Admin: 02/07/17 18:47 Dose: 4 mg Pantoprazole Sodium (Protonix Ec Tab) 40 mg PO DAILY [facility] Last Admin: 02/12/17 08:56 Dose: 40 mg Sevelamer HCl (Renagel) 2,400 mg PO TID [facility] Last Admin: 02/12/17 16:08 Dose: 2,400 mg Sitagliptin Phosphate (Januvia) 25 mg PO DAILY [facility] Last Admin: 02/12/17 08:56 Dose: 25 mg Tramadol HCl (Ultram) 50 mg PO Q12 PRN PRN Reason: Pain, moderate (4-7) Last Admin: 02/12/17 09:12 Dose: 50 mg Vitamin B Complex/Vit C/Folic Acid (Nephro-Niko) 1 tab PO DAILY [facility] Last Admin: 02/12/17 08:56 Dose: 1 tab - Labs Labs: 02/12/17 04:00 02/12/17 04:00 PT 14.1 Seconds (9.8-13.1) H 02/07/17 06:05 INR 1.2 (0.9-1.2) 02/07/17 06:05 APTT 30.3 Seconds (25.6-37.1) 02/07/17 06:05
--- NOTE | 2017-02-12 17:21 | NM ---
PROCEDURE: Whole Body Bone Scan HISTORY: rule out OM right foot COMPARISON: None available. TECHNIQUE: Following administration of 25.6 miCu of Tc MDP multiplanar whole body images were obtained. FINDINGS: Flow component: Increased flow to the right foot which is diffuse Blood pool component: Retention of radionuclide in the right foot at and beyond the level of the distal metatarsals. No focal abnormalities. Delayed images at 3:00: Retention of radionuclide in the 1st digit right foot. Focal increased uptake distal tuft left 1st digit. IMPRESSION: Findings consistent with cellulitis right lower extremity without an acute osseous component. Additional benign and/or incidental findings described above.
[2017-02-12] MEDS: HYDROmorphone 0.5 mg/0.5 ml ISec IVP PRN (20:00)
--- NOTE | 2017-02-12 21:39 | CP.PCM.PN ---
Subjective - Date & Time of Evaluation Date of Evaluation: 02/12/17 Time of Evaluation: 19:00 - Subjective Subjective: Vent[place] is seen in ICU. resting comfortably. He denies current foot pain. Objective - Vital Signs/Intake and Output Vital Signs (last 24 hours): Temp Pulse Resp BP Pulse Ox 98.3 F 86 23 144/63 97 02/12/17 16:00 02/12/17 18:00 02/12/17 18:00 02/12/17 18:00 02/12/17 18:00 Intake and Output: 02/12/17 02/13/17 18:59 06:59 Intake Total 1219 Balance 1219 - Medications Medications: Current Medications Acetaminophen (Tylenol 325mg Tab) 650 mg PO Q6 PRN PRN Reason: Pain, moderate (4-7) Aspirin (Ecotrin) 81 mg PO DAILY [facility] Last Admin: 02/07/17 09:00 Dose: Not Given Atorvastatin Calcium (Lipitor) 10 mg PO HS [facility] Last Admin: 02/12/17 21:32 Dose: 10 mg Epoetin Avery (Procrit) 15,000 unit IV MWF [facility] Heparin Sodium (Porcine) (Heparin) 5,000 units SC Q8 [facility] PRN Reason: Protocol Last Admin: 02/07/17 09:00 Dose: Not Given Hydromorphone HCl (Dilaudid) 0.5 mg IVP Q6 PRN PRN Reason: Pain, severe (8-10) Last Admin: 02/12/17 20:00 Dose: 0.5 mg Insulin Human Regular (Humulin R) 0 units SC ACHS [facility] PRN Reason: Protocol Last Admin: 02/12/17 16:09 Dose: 2 units Ondansetron HCl (Zofran Inj) 4 mg IVP Q6 PRN PRN Reason: Nausea/Vomiting Last Admin: 02/07/17 18:47 Dose: 4 mg Pantoprazole Sodium (Protonix Ec Tab) 40 mg PO DAILY [facility] Last Admin: 02/12/17 08:56 Dose: 40 mg Sevelamer HCl (Renagel) 2,400 mg PO TID [facility] Last Admin: 02/12/17 16:08 Dose: 2,400 mg Sitagliptin Phosphate (Januvia) 25 mg PO DAILY [facility] Last Admin: 02/12/17 08:56 Dose: 25 mg Tramadol HCl (Ultram) 50 mg PO Q12 PRN PRN Reason: Pain, moderate (4-7) Last Admin: 02/12/17 09:12 Dose: 50 mg Vitamin B Complex/Vit C/Folic Acid (Nephro-Niko) 1 tab PO DAILY [facility] Last Admin: 02/12/17 08:56 Dose: 1 tab - Labs Labs: 02/12/17 04:00 02/12/17 04:00 PT 14.1 Seconds (9.8-13.1) H 02/07/17 06:05 INR 1.2 (0.9-1.2) 02/07/17 06:05 APTT 30.3 Seconds (25.6-37.1) 02/07/17 06:05 - Constitutional Appears: Non-toxic - Head Exam Head Exam: NORMAL INSPECTION - Eye Exam Eye Exam: Normal appearance - ENT Exam ENT Exam: Mucous Membranes Moist - Neck Exam Neck Exam: Full ROM - Respiratory Exam Respiratory Exam: Decreased Breath Sounds - Cardiovascular Exam Cardiovascular Exam: REGULAR RHYTHM - GI/Abdominal Exam GI & Abdominal Exam: Normal Bowel Sounds - Rectal Exam Rectal Exam: Deferred - Extremities Exam Additional comments: gangrene of toe - Back Exam Back Exam: NORMAL INSPECTION - Neurological Exam Neurological Exam: Alert - Psychiatric Exam Psychiatric exam: Normal Affect - Skin Skin Exam: Normal Color Assessment and Plan (1) PAD (peripheral artery disease) Assessment & Plan: Patient will benefit from angiography to attempt limb salvage. He has severe LV dysfunction, and has had dialysis once this week. The safest course of action is for the patietn to be dialyzed tomorrow as planned. I will then perform angiography and possible intervention on . I have discussed my recommendations with Alex Avila and Dr. Huff. The patient understands. Status: Acute (2) CAD (coronary artery disease) Status: Acute (3) Ischemic cardiomyopathy Status: Acute (4) ESRD (end stage renal disease) Status: Acute
[2017-02-13 04:56] LABS: HEMATOCRIT 31.2 % (35.0-51.0); MEAN CELL VOLUME 72.5 fl (80.0-94.0); MEAN CORPUSCULAR HEMOGLOBIN 21.6 pg (27.0-31.0); MEAN CORPUSCULAR HGB CONC 29.7 g/dL (33.0-37.0); RED CELL DISTRIBUTION WIDTH 20.2 % (11.5-14.5); WHITE BLOOD COUNT 12.4 K/uL (4.8-10.8)
[2017-02-13 05:10] LABS: POTASSIUM 3.9 MMOL/L (3.6-5.0)
[2017-02-13] MEDS: Insulin Regular 100 units/ml SC SCH ×4 (06:30→21:57)
[2017-02-13 07:28] LABS: PARTIAL THROMBOPLASTIN TIME 28.6 Seconds (25.6-37.1)
--- NOTE | 2017-02-13 08:12 | CP.PCM.PN ---
Subjective - Date & Time of Evaluation Date of Evaluation: 02/13/17 Time of Evaluation: 08:09 - Subjective Subjective: 76 y/o male seen at bedside in ICU today for f/u of right hallux necrotic wounds and right 2nd digit gangrene. Pt seen resting comfortably in bed at time of visit. Patient going for HD today. Patient refuses to wear offloading prevlon boots while in bed. Patient denies any pain to the toes today, but states that he just received pain medication and that has been helping. Patient admits to constipation and has not had a bm in 5 days. Deneis f/n/v/c/sob/cp at this time. Denies any other pedal complaints today. Objective - Vital Signs/Intake and Output Vital Signs (last 24 hours): Temp Pulse Resp BP Pulse Ox 97.5 F L 86 15 150/68 97 02/13/17 00:00 02/13/17 06:00 02/13/17 06:00 02/13/17 06:00 02/13/17 06:00 Intake and Output: 02/13/17 02/13/17 06:59 18:59 Intake Total 200 Balance 200 - Medications Medications: Current Medications Acetaminophen (Tylenol 325mg Tab) 650 mg PO Q6 PRN PRN Reason: Pain, moderate (4-7) Aspirin (Ecotrin) 81 mg PO DAILY [facility] Last Admin: 02/07/17 09:00 Dose: Not Given Atorvastatin Calcium (Lipitor) 10 mg PO HS [facility] Last Admin: 02/12/17 21:32 Dose: 10 mg Epoetin Avery (Procrit) 15,000 unit IV [facility] Heparin Sodium (Porcine) (Heparin) 5,000 units SC Q8 [facility] PRN Reason: Protocol Last Admin: 02/07/17 09:00 Dose: Not Given Hydromorphone HCl (Dilaudid) 0.5 mg IVP Q6 PRN PRN Reason: Pain, severe (8-10) Last Admin: 02/12/17 20:00 Dose: 0.5 mg Insulin Human Regular (Humulin R) 0 units SC ACHS [facility] PRN Reason: Protocol Last Admin: 02/13/17 06:30 Dose: Not Given Ondansetron HCl (Zofran Inj) 4 mg IVP Q6 PRN PRN Reason: Nausea/Vomiting Last Admin: 02/07/17 18:47 Dose: 4 mg Pantoprazole Sodium (Protonix Ec Tab) 40 mg PO DAILY [facility] Last Admin: 02/12/17 08:56 Dose: 40 mg Sevelamer HCl (Renagel) 2,400 mg PO TID [facility] Last Admin: 02/12/17 16:08 Dose: 2,400 mg Sitagliptin Phosphate (Januvia) 25 mg PO DAILY [facility] Last Admin: 02/12/17 08:56 Dose: 25 mg Tramadol HCl (Ultram) 50 mg PO Q12 PRN PRN Reason: Pain, moderate (4-7) Last Admin: 02/12/17 09:12 Dose: 50 mg Vitamin B Complex/Vit C/Folic Acid (Nephro-Niko) 1 tab PO DAILY [facility] Last Admin: 02/12/17 08:56 Dose: 1 tab - Labs Labs: 02/13/17 04:00 02/13/17 04:00 PT 14.7 Seconds (9.8-13.1) H 02/13/17 04:00 INR 1.3 (0.9-1.2) H 02/13/17 04:00 APTT 28.6 Seconds (25.6-37.1) 02/13/17 04:00 - Constitutional Appears: Well, Non-toxic, No Acute Distress - Extremities Exam Additional comments: Right foot focused: VASC: DP/PT pulses are non palpable, TG: warm to cool, [address]: < 4 sec to all digits, mild edema noted on the 1st and 2nd digit, gangrenous changes noted to 2nd digit with dusky, purplish discoloration DERM: mild edema and erythema noted to the 1st and 2nd digit, no active drainage , no probe to bone, no malodor, no ascending cellulitis, 2nd digit appears dusky and discolored with gangrenous changes- boggy and wet distal tip, necrotic eschar noted to medial hallux and dorsal hallucal nail NEURO: pedal sensation is grossly intact ORTHO: pain on palpation of the 1st and 2nd digit of the right foot - Neurological Exam Neurological Exam: Alert, Awake, Oriented x3 - Psychiatric Exam Psychiatric exam: Normal Affect, Normal Mood Assessment and Plan - Assessment and Plan (Free Text) Assessment: 76 y/o male seen at bedside for R hallux necrotic wound, 2nd digit ulceration with gangrenous changes secondary to diabetes and PAD Plan: Pt S&E at bedside Plan discussed with attending Dr. Lebron Chart labs and vitals reviewed: WBC 12.4 today (from 12.8) Low ext vascular studies remain pending: TUTU/PVR, CT angiogram Bone scan right foot- cellulitis, no evidence of osteomyelitis Advised pt to wear offloading prevalon boots to avoid heel ulcerations, however patient is refusing No foot dressing needed at this time. Per ortho, patient is to be toe touch weight bearing to the left low ext Podiatry will follow
[2017-02-13] MEDS ORDERED: Bisacodyl 5mg EC Tab PO ONE (08:37)
[2017-02-13] MEDS: HYDROmorphone 0.5 mg/0.5 ml ISec IVP PRN ×3 (08:45→21:02)
[2017-02-13] MEDS: Multivitamin Vitamin B Complex (Nephro-Vite) Tab PO SCH (08:47)
[2017-02-13] MEDS: Pantoprazole 40 mg EC Tab PO SCH (08:47)
[2017-02-13] MEDS ORDERED: Magnesium Hydroxide Susp 30 ml UD PO SCH (09:00)
[2017-02-13] MEDS: Epoetin Alfa 20000 UNIT/ML (RENAL DOSE) IV SCH (10:16)
--- NOTE | 2017-02-13 10:52 | CP.PCM.PN ---
Subjective - Date & Time of Evaluation Date of Evaluation: 02/13/17 Time of Evaluation: 10:50 - Subjective Subjective: Patient was seen on hemodialysis Blood pressure noted to be stable 125 by 80 Artery stable on dialysis around 76 Complaining of less pain in the right foot Objective - Vital Signs/Intake and Output Vital Signs (last 24 hours): Temp Pulse Resp BP Pulse Ox 97.4 F L 87 15 158/74 H 95 02/13/17 08:00 02/13/17 08:00 02/13/17 08:00 02/13/17 08:00 02/13/17 08:00 Intake and Output: 02/13/17 02/13/17 06:59 18:59 Intake Total 200 Balance 200 - Medications Medications: Current Medications Acetaminophen (Tylenol 325mg Tab) 650 mg PO Q6 PRN PRN Reason: Pain, moderate (4-7) Aspirin (Ecotrin) 81 mg PO DAILY [facility] Last Admin: 02/07/17 09:00 Dose: Not Given Atorvastatin Calcium (Lipitor) 10 mg PO HS [facility] Last Admin: 02/12/17 21:32 Dose: 10 mg Epoetin Avery (Procrit) 15,000 unit IV MWF [facility] Last Admin: 02/13/17 10:16 Dose: 15,000 unit Heparin Sodium (Porcine) (Heparin) 5,000 units SC Q8 [facility] PRN Reason: Protocol Last Admin: 02/07/17 09:00 Dose: Not Given Hydromorphone HCl (Dilaudid) 0.5 mg IVP Q6 PRN PRN Reason: Pain, severe (8-10) Last Admin: 02/13/17 08:45 Dose: 0.5 mg Insulin Human Regular (Humulin R) 0 units SC ACHS [facility] PRN Reason: Protocol Last Admin: 02/13/17 06:30 Dose: Not Given Ondansetron HCl (Zofran Inj) 4 mg IVP Q6 PRN PRN Reason: Nausea/Vomiting Last Admin: 02/07/17 18:47 Dose: 4 mg Pantoprazole Sodium (Protonix Ec Tab) 40 mg PO DAILY [facility] Last Admin: 02/13/17 08:47 Dose: 40 mg Sevelamer HCl (Renagel) 2,400 mg PO TID [facility] Last Admin: 02/13/17 08:47 Dose: 2,400 mg Sitagliptin Phosphate (Januvia) 25 mg PO DAILY [facility] Last Admin: 02/13/17 10:15 Dose: 25 mg Tramadol HCl (Ultram) 50 mg PO Q12 PRN PRN Reason: Pain, moderate (4-7) Last Admin: 02/12/17 09:12 Dose: 50 mg Vitamin B Complex/Vit C/Folic Acid (Nephro-Niko) 1 tab PO DAILY [facility] Last Admin: 02/13/17 08:47 Dose: 1 tab - Labs Labs: 02/13/17 04:00 02/13/17 04:00 PT 14.7 Seconds (9.8-13.1) H 02/13/17 04:00 INR 1.3 (0.9-1.2) H 02/13/17 04:00 APTT 28.6 Seconds (25.6-37.1) 02/13/17 04:00 - Constitutional Appears: No Acute Distress - ENT Exam ENT Exam: Mucous Membranes Moist - Respiratory Exam Respiratory Exam: absent: Chest Wall Tenderness - Cardiovascular Exam Cardiovascular Exam: REGULAR RHYTHM. absent: Rubs - GI/Abdominal Exam GI & Abdominal Exam: Normal Bowel Sounds - Extremities Exam Extremities Exam: absent: Calf Tenderness - Back Exam Back Exam: absent: CVA tenderness (L), CVA tenderness (R) - Neurological Exam Neurological Exam: Alert Assessment and Plan (1) Ulcer of foot Status: Chronic (2) CHF (congestive heart failure) Status: Chronic (3) ESRD (end stage renal disease) on dialysis Assessment & Plan: End stage renal disease receiving dialysis Ultrafiltration 2500 mL Potassium 3 mEq Calcium bath 2.5 mCi element Patient tolerating well Peripheral vascular disease was dry gangrene of the right second toe and partial of the big toe on the right Serum vancomycin level this morning I spoke to the son yesterday and to the for period of time repeatedly I spoke to the Today I spoke with the primary care physician and also the cardiology for coordination of care Status: Chronic
--- NOTE | 2017-02-13 12:00 | CP.PCM.PN ---
<Jhonny Deluca - Last Filed: 02/13/17 11:57> Subjective - Date & Time of Evaluation Date of Evaluation: 02/13/17 Time of Evaluation: 09:57 - Subjective Subjective: Patient seen and evaluated at bedside with attending. No acute events overnight. Currently receiving HD. Continues to complain of right toe/foot pain. No fever/chills overnight. Complains of constipation, no BM in 5 days. No abdominal pain at this time. Spoke with nursing staff, tax adjuster, and consultants. Objective - Vital Signs/Intake and Output Vital Signs (last 24 hours): Temp Pulse Resp BP Pulse Ox 97.4 F L 78 16 126/64 100 02/13/17 08:00 02/13/17 10:00 02/13/17 10:00 02/13/17 10:00 02/13/17 10:00 Intake and Output: 02/13/17 02/13/17 06:59 18:59 Intake Total 200 200 Balance 200 200 - Medications Medications: Current Medications Acetaminophen (Tylenol 325mg Tab) 650 mg PO Q6 PRN PRN Reason: Pain, moderate (4-7) Aspirin (Ecotrin) 81 mg PO DAILY [facility] Last Admin: 02/07/17 09:00 Dose: Not Given Atorvastatin Calcium (Lipitor) 10 mg PO HS [facility] Last Admin: 02/12/17 21:32 Dose: 10 mg Epoetin Avery (Procrit) 15,000 unit IV MWF [facility] Last Admin: 02/13/17 10:16 Dose: 15,000 unit Heparin Sodium (Porcine) (Heparin) 5,000 units SC Q8 [facility] PRN Reason: Protocol Last Admin: 02/07/17 09:00 Dose: Not Given Hydromorphone HCl (Dilaudid) 0.5 mg IVP Q6 PRN PRN Reason: Pain, severe (8-10) Last Admin: 02/13/17 08:45 Dose: 0.5 mg Insulin Human Regular (Humulin R) 0 units SC ACHS [facility] PRN Reason: Protocol Last Admin: 02/13/17 11:20 Dose: Not Given Ondansetron HCl (Zofran Inj) 4 mg IVP Q6 PRN PRN Reason: Nausea/Vomiting Last Admin: 02/07/17 18:47 Dose: 4 mg Pantoprazole Sodium (Protonix Ec Tab) 40 mg PO DAILY [facility] Last Admin: 02/13/17 08:47 Dose: 40 mg Sevelamer HCl (Renagel) 2,400 mg PO TID [facility] Last Admin: 02/13/17 08:47 Dose: 2,400 mg Sitagliptin Phosphate (Januvia) 25 mg PO DAILY [facility] Last Admin: 02/13/17 10:15 Dose: 25 mg Tramadol HCl (Ultram) 50 mg PO Q12 PRN PRN Reason: Pain, moderate (4-7) Last Admin: 02/12/17 09:12 Dose: 50 mg Vitamin B Complex/Vit C/Folic Acid (Nephro-Niko) 1 tab PO DAILY [facility] Last Admin: 02/13/17 08:47 Dose: 1 tab - Labs Labs: 02/13/17 04:00 02/13/17 04:00 PT 14.7 Seconds (9.8-13.1) H 02/13/17 04:00 INR 1.3 (0.9-1.2) H 02/13/17 04:00 APTT 28.6 Seconds (25.6-37.1) 02/13/17 04:00 - Constitutional Appears: Non-toxic, No Acute Distress - Head Exam Head Exam: ATRAUMATIC, NORMAL INSPECTION, NORMOCEPHALIC - Eye Exam Eye Exam: Normal appearance - Respiratory Exam Respiratory Exam: Clear to Ausculation Bilateral, NORMAL BREATHING PATTERN - Cardiovascular Exam Cardiovascular Exam: REGULAR RHYTHM, +S1, +S2. absent: Murmur - GI/Abdominal Exam GI & Abdominal Exam: Soft, Normal Bowel Sounds. absent: Tenderness - Extremities Exam Additional comments: right foot noted 2nd toe gangrenous - Neurological Exam Neurological Exam: Alert, Awake - Psychiatric Exam Psychiatric exam: Normal Affect, Normal Mood - Skin Skin Exam: Dry, Normal Color, Warm Assessment and Plan (1) Ulcer of foot Assessment & Plan: Right foot, 1st/2nd toe Continues to have pain PAD? labs reviewed; WBC 12.4, afebrile, essentially unchanged from yesterday ID on board, appreciate input wound cx,x rays, bone scan reviewed f/u TUTU/PV Dr. Ferris regarding coordination of Angio at [facility] and HD for tomorrow Podiatry on board, appreciate input Vascular on board, appreciate input Status: Chronic (2) Sepsis Assessment & Plan: Secondary to RLL pneumonia with pleural effusion WBC 12.4, trending down though essentially unchanged from yesterday Afebrile BP wnl ID on board, appreciate input Status: Acute (3) Diabetes Assessment & Plan: Type 2 NIIDM ISS c/w home meds diabetic diet Accuchecks ACHS Status: Chronic (4) ESRD (end stage renal disease) on dialysis Assessment & Plan: on HD (M/W/F) - today Renal on board, appreciate input Renal diet c/w home meds Status: Chronic (5) CHF (congestive heart failure) Assessment & Plan: Systolic, Chronic LVEF ~ 20-25% WITH A DEFIBRILLATOR Cardiology on board, appreciate recommendations Status: Chronic (6) Pelvic ring fracture Assessment & Plan: Noted on CT scan of abdomen fall 2 months ago ortho on board, appreciate input PT Status: Acute (7) Anemia Assessment & Plan: 2ndary to renal disease Stable hgb 9.0 at this time Status: Acute (8) Constipation Assessment & Plan: encouraged PT Fleet enema x 1 Continue to monitor Status: Acute <Rocco Huff - Last Filed: 02/15/17 19:29> Objective - Vital Signs/Intake and Output Vital Signs (last 24 hours): Temp Pulse Resp BP Pulse Ox 97.7 F 81 14 111/57 L 97 02/15/17 15:49 02/15/17 18:00 02/15/17 18:00 02/15/17 18:00 02/15/17 18:00 Intake and Output: 02/15/17 02/16/17 18:59 06:59 Intake Total 460 Balance 460 - Medications Medications: Current Medications Acetaminophen (Tylenol 325mg Tab) 650 mg PO Q6 PRN PRN Reason: Pain, moderate (4-7) Aspirin (Ecotrin) 81 mg PO DAILY [facility] Last Admin: 02/07/17 09:00 Dose: Not Given Atorvastatin Calcium (Lipitor) 10 mg PO HS [facility] Last Admin: 02/14/17 21:36 Dose: 10 mg Epoetin Avery (Procrit) 15,000 unit IV MWF [facility] Last Admin: 02/13/17 10:16 Dose: 15,000 unit Heparin Sodium (Porcine) (Heparin) 5,000 units SC Q8 [facility] PRN Reason: Protocol Last Admin: 02/07/17 09:00 Dose: Not Given Cefepime HCl 1 gm/ Sodium (Chloride) 100 mls @ 100 mls/hr IVPB DAILY [facility] Last Admin: 02/15/17 08:33 Dose: 100 mls/hr Insulin Human Regular (Humulin R) 0 units SC ACHS [facility] PRN Reason: Protocol Last Admin: 02/15/17 17:28 Dose: 3 units Ondansetron HCl (Zofran Inj) 4 mg IVP Q6 PRN PRN Reason: Nausea/Vomiting Last Admin: 02/15/17 00:24 Dose: 4 mg Pantoprazole Sodium (Protonix Ec Tab) 40 mg PO DAILY [facility] Last Admin: 02/15/17 08:33 Dose: 40 mg Sevelamer HCl (Renagel) 2,400 mg PO TID [facility] Last Admin: 02/15/17 17:27 Dose: 2,400 mg Sitagliptin Phosphate (Januvia) 25 mg PO DAILY [facility] Last Admin: 02/15/17 08:32 Dose: 25 mg Tramadol HCl (Ultram) 50 mg PO Q4 PRN PRN Reason: Pain, moderate (4-7) Last Admin: 02/15/17 17:30 Dose: 50 mg Vitamin B Complex/Vit C/Folic Acid (Nephro-Niko) 1 tab PO DAILY [facility] Last Admin: 02/15/17 08:32 Dose: 1 tab - Labs Labs: 02/15/17 04:30 02/15/17 04:30 PT 14.7 Seconds (9.8-13.1) H 02/13/17 04:00 INR 1.3 (0.9-1.2) H 02/13/17 04:00 APTT 28.6 Seconds (25.6-37.1) 02/13/17 04:00 Assessment and Plan (1) Cholelithiasis Status: Acute (2) PAD (peripheral artery disease) Status: Acute (3) Ulcer of foot Status: Chronic (4) Gallbladder polyp Status: Acute (5) CKD (chronic kidney disease) stage 5, GFR less than 15 ml/min Status: Acute (6) Pelvic ring fracture Status: Acute - Assessment and Plan (Free Text) Plan: I was present during evaluation and discussed with Dr Deluca re plans of care and mgt Rocco Hfuf M.D.
--- NOTE | 2017-02-13 13:02 | CP.PCM.PN ---
Subjective - Date & Time of Evaluation Date of Evaluation: 02/13/17 Time of Evaluation: 08:45 - Subjective Subjective: NO CHEST PAIN OR SOB STILL WITH RIGHT FOOT PAIN BUT LESS Objective - Vital Signs/Intake and Output Vital Signs (last 24 hours): Temp Pulse Resp BP Pulse Ox 98.2 F 96 H 20 134/60 99 02/13/17 12:00 02/13/17 12:00 02/13/17 12:00 02/13/17 12:00 02/13/17 12:00 Intake and Output: 02/13/17 02/13/17 06:59 18:59 Intake Total 200 200 Balance 200 200 - Medications Medications: Current Medications Acetaminophen (Tylenol 325mg Tab) 650 mg PO Q6 PRN PRN Reason: Pain, moderate (4-7) Aspirin (Ecotrin) 81 mg PO DAILY [facility] Last Admin: 02/07/17 09:00 Dose: Not Given Atorvastatin Calcium (Lipitor) 10 mg PO HS [facility] Last Admin: 02/12/17 21:32 Dose: 10 mg Epoetin Avery (Procrit) 15,000 unit IV MWF [facility] Last Admin: 02/13/17 10:16 Dose: 15,000 unit Heparin Sodium (Porcine) (Heparin) 5,000 units SC Q8 [facility] PRN Reason: Protocol Last Admin: 02/07/17 09:00 Dose: Not Given Hydromorphone HCl (Dilaudid) 0.5 mg IVP Q6 PRN PRN Reason: Pain, severe (8-10) Last Admin: 02/13/17 08:45 Dose: 0.5 mg Insulin Human Regular (Humulin R) 0 units SC ACHS [facility] PRN Reason: Protocol Last Admin: 02/13/17 11:20 Dose: Not Given Ondansetron HCl (Zofran Inj) 4 mg IVP Q6 PRN PRN Reason: Nausea/Vomiting Last Admin: 02/07/17 18:47 Dose: 4 mg Pantoprazole Sodium (Protonix Ec Tab) 40 mg PO DAILY [facility] Last Admin: 02/13/17 08:47 Dose: 40 mg Sevelamer HCl (Renagel) 2,400 mg PO TID [facility] Last Admin: 02/13/17 08:47 Dose: 2,400 mg Sitagliptin Phosphate (Januvia) 25 mg PO DAILY [facility] Last Admin: 02/13/17 10:15 Dose: 25 mg Tramadol HCl (Ultram) 50 mg PO Q12 PRN PRN Reason: Pain, moderate (4-7) Last Admin: 02/12/17 09:12 Dose: 50 mg Vitamin B Complex/Vit C/Folic Acid (Nephro-Niko) 1 tab PO DAILY [facility] Last Admin: 02/13/17 08:47 Dose: 1 tab - Labs Labs: 02/13/17 04:00 02/13/17 04:00 PT 14.7 Seconds (9.8-13.1) H 02/13/17 04:00 INR 1.3 (0.9-1.2) H 02/13/17 04:00 APTT 28.6 Seconds (25.6-37.1) 02/13/17 04:00 - Respiratory Exam Respiratory Exam: Decreased Breath Sounds - Cardiovascular Exam Cardiovascular Exam: REGULAR RHYTHM, +S1, +S2 - Extremities Exam Additional comments: RIGHT FOOT CYANOSIS AND GANGRENOUS CHANGES - Additional Findings Additional findings: NET UI DEVELOPER NSR CT ANGIO NOT DONE CT SCAN IS DOWN Assessment and Plan - Assessment and Plan (Free Text) Assessment: CAD PAD WITH RIGHT FOOT CYANOSOS AND TOE ULCERS AND GANGRENOUS TOES CRF ON HD HYPERLIPIDEMIA DM Plan: THE PATIENT WILL BE TRANSFERRED TO TOMORROW AND DR ROBERSON WILL DO A PERIPHERAL VASCULAR PROCEDURE WITH A RLE ANGIOGRAPHY AND A REVASCULATIZATION PROCEDURE IF THE ANATOMY ALLOWS-DR ROBERSON AND I DISCUSSED THE PATIENT IN DETAIL THE PATIENT IS HAVING HD TODAY CT ANGIO NOT DONE CAT SCAN IS DOWN CONTINUE ASPIRIN, HEPARIN, ATORVASTATIN, JANUVIA
--- NOTE | 2017-02-13 13:32 | CP.PCM.PN ---
Subjective - Date & Time of Evaluation Date of Evaluation: 02/13/17 Time of Evaluation: 10:00 - Subjective Subjective: Continues to complain of right toe/foot pain. No fever/chills overnight. Objective - Vital Signs/Intake and Output Vital Signs (last 24 hours): Temp Pulse Resp BP Pulse Ox 98.2 F 96 H 20 134/60 99 02/13/17 12:00 02/13/17 12:00 02/13/17 12:00 02/13/17 12:00 02/13/17 12:00 Intake and Output: 02/13/17 02/13/17 06:59 18:59 Intake Total 200 200 Output Total 2500 Balance 200 -2300 - Medications Medications: Current Medications Acetaminophen (Tylenol 325mg Tab) 650 mg PO Q6 PRN PRN Reason: Pain, moderate (4-7) Aspirin (Ecotrin) 81 mg PO DAILY [facility] Last Admin: 02/07/17 09:00 Dose: Not Given Atorvastatin Calcium (Lipitor) 10 mg PO HS [facility] Last Admin: 02/12/17 21:32 Dose: 10 mg Epoetin Avery (Procrit) 15,000 unit IV MWF [facility] Last Admin: 02/13/17 10:16 Dose: 15,000 unit Heparin Sodium (Porcine) (Heparin) 5,000 units SC Q8 [facility] PRN Reason: Protocol Last Admin: 02/07/17 09:00 Dose: Not Given Hydromorphone HCl (Dilaudid) 0.5 mg IVP Q6 PRN PRN Reason: Pain, severe (8-10) Last Admin: 02/13/17 08:45 Dose: 0.5 mg Insulin Human Regular (Humulin R) 0 units SC ACHS [facility] PRN Reason: Protocol Last Admin: 02/13/17 11:20 Dose: Not Given Ondansetron HCl (Zofran Inj) 4 mg IVP Q6 PRN PRN Reason: Nausea/Vomiting Last Admin: 02/07/17 18:47 Dose: 4 mg Pantoprazole Sodium (Protonix Ec Tab) 40 mg PO DAILY [facility] Last Admin: 02/13/17 08:47 Dose: 40 mg Sevelamer HCl (Renagel) 2,400 mg PO TID [facility] Last Admin: 02/13/17 08:47 Dose: 2,400 mg Sitagliptin Phosphate (Januvia) 25 mg PO DAILY [facility] Last Admin: 02/13/17 10:15 Dose: 25 mg Tramadol HCl (Ultram) 50 mg PO Q12 PRN PRN Reason: Pain, moderate (4-7) Last Admin: 02/12/17 09:12 Dose: 50 mg Vitamin B Complex/Vit C/Folic Acid (Nephro-Niko) 1 tab PO DAILY [facility] Last Admin: 02/13/17 08:47 Dose: 1 tab - Labs Labs: 02/13/17 04:00 02/13/17 04:00 PT 14.7 Seconds (9.8-13.1) H 02/13/17 04:00 INR 1.3 (0.9-1.2) H 02/13/17 04:00 APTT 28.6 Seconds (25.6-37.1) 02/13/17 04:00 - Constitutional Appears: Non-toxic, Chronically Ill - Head Exam Head Exam: NORMOCEPHALIC - Eye Exam Eye Exam: PERRL. absent: Scleral icterus - ENT Exam ENT Exam: Mucous Membranes Dry - Neck Exam Neck Exam: absent: Lymphadenopathy - Respiratory Exam Respiratory Exam: Decreased Breath Sounds, Rhonchi - Cardiovascular Exam Cardiovascular Exam: REGULAR RHYTHM - GI/Abdominal Exam GI & Abdominal Exam: Distended, Soft - Rectal Exam Rectal Exam: Deferred - Exam Exam: NORMAL INSPECTION - Extremities Exam Extremities Exam: Pedal Edema, Tenderness Assessment and Plan (1) Ulcer of foot Status: Chronic (2) ESRD (end stage renal disease) Status: Acute (3) CHF (congestive heart failure) Status: Chronic (4) Diabetes Status: Chronic - Assessment and Plan (Free Text) Assessment: cont iv rx
[2017-02-13] MEDS: Cefepime 1 GM in Sodium Chloride 0.9% 100 ML IVPB SCH (14:19)
--- NOTE | 2017-02-13 18:40 | CON ---
DATE: 02/10/2017 REFERRING PHYSICIAN: Dr. Huff. REASON FOR CONSULTATION: Abdominal discomfort. HISTORY OF PRESENT ILLNESS: This is a 76-year-old man with history of multiple medical problems incl uding CHF, CAD, hypertension, hypercholesterolemia, end-stage renal , diabetes, AFib, CHF, comes in for basically gangrenous foot/toe. GI is called for some abdominal discomfort, for which is actu ally improved. The patient has no GI complaints at this point. Lying in bed, comfortable, no appare nt distress. PAST MEDICAL HISTORY: As above. PAST SURGICAL HISTORY: As above. MEDICATIONS: Have been reviewed. REVIEW OF SYSTEMS: All other systems have been reviewed and negative apart in HPI. PHYSICAL EXAMINATION: VITAL SIGNS: Here in the hospital are grossly unremarkable. GENERAL: This is a pleasant, elderly-appearing male lying in bed, comfortable, in no apparent distre ss. HEAD: Normocephalic, atraumatic. EYES: Pupils equally reactive bilaterally. No pallor or icterus. NECK: Supple, normal range of motion. No lymphadenopathy appreciated. LUNGS: Coarse bilaterally. HEART: S1, S2. Regular rate and rhythm. No murmurs appreciated. ABDOMEN: Soft, nontender. Bowel sounds present. . RECTAL: Deferred. SKIN: Warm, dry and intact. NEUROLOGIC: Alert and oriented x 3. LABORATORY DATA: Labs reviewed. WBC 14.3, hemoglobin of , hematocrit 31.0, platelet count of 2 27. LFTs are normal. ASSESSMENT AND PLAN: This is a 76-year-old man with abdominal discomfort. From GI standpoint, CAT s can is reviewed and unremarkable. Ultrasound is noted as well. Advance diet as tolerated. We will follow the patient with you. Thank you for the consult. Alec Paige MD, PhD cc:Rocco Huff MD [id number] TT: 02/13/2017 18:40:08 Confirmation # [id number] Dictation # [id number] mn
[2017-02-14 04:54] LABS: HEMATOCRIT 31.4 % (35.0-51.0); MEAN CELL VOLUME 72.7 fl (80.0-94.0); MEAN CORPUSCULAR HEMOGLOBIN 21.8 pg (27.0-31.0); MEAN CORPUSCULAR HGB CONC 29.9 g/dL (33.0-37.0); RED CELL DISTRIBUTION WIDTH 20.2 % (11.5-14.5); WHITE BLOOD COUNT 11.7 K/uL (4.8-10.8)
[2017-02-14 05:07] LABS: CALCIUM 9.3 mg/dL (8.4-10.2); POTASSIUM 3.7 MMOL/L (3.6-5.0)
[2017-02-14] MEDS: HYDROmorphone 0.5 mg/0.5 ml ISec IVP PRN (05:23)
[2017-02-14] MEDS: Insulin Regular 100 units/ml SC SCH ×4 (06:46→21:36)
--- NOTE | 2017-02-14 08:23 | CP.PCM.PN ---
Subjective - Date & Time of Evaluation Date of Evaluation: 02/14/17 Time of Evaluation: 08:20 - Subjective Subjective: 76 year old male seen at bedside in ICU for necrotic wound to right hallux and gangrenous changes to right second digit. Patient appears to be resting comfortably in his bed at this time in NAD and is AAOx3. Patient denies any acute overnight events. He states that he is in no pain at this time. Patient denies N/V/F/C/CP/SOB. Patient denies any further pedal complaints at this time. Objective - Vital Signs/Intake and Output Vital Signs (last 24 hours): Temp Pulse Resp BP Pulse Ox 98.4 F 90 13 125/58 L 100 02/14/17 07:59 02/14/17 07:59 02/14/17 07:59 02/14/17 07:59 02/14/17 07:59 Intake and Output: 02/14/17 02/14/17 06:59 18:59 Intake Total 480 Balance 480 - Medications Medications: Current Medications Acetaminophen (Tylenol 325mg Tab) 650 mg PO Q6 PRN PRN Reason: Pain, moderate (4-7) Aspirin (Ecotrin) 81 mg PO DAILY [facility] Last Admin: 02/07/17 09:00 Dose: Not Given Atorvastatin Calcium (Lipitor) 10 mg PO HS [facility] Last Admin: 02/13/17 21:03 Dose: 10 mg Epoetin Avery (Procrit) 15,000 unit IV MWF [facility] Last Admin: 02/13/17 10:16 Dose: 15,000 unit Heparin Sodium (Porcine) (Heparin) 5,000 units SC Q8 [facility] PRN Reason: Protocol Last Admin: 02/07/17 09:00 Dose: Not Given Hydromorphone HCl (Dilaudid) 0.5 mg IVP Q6 PRN PRN Reason: Pain, severe (8-10) Last Admin: 02/14/17 05:23 Dose: 0.5 mg Cefepime HCl 1 gm/ Sodium (Chloride) 100 mls @ 100 mls/hr IVPB DAILY [facility] Last Admin: 02/13/17 14:19 Dose: 100 mls/hr Insulin Human Regular (Humulin R) 0 units SC ACHS [facility] PRN Reason: Protocol Last Admin: 02/14/17 06:46 Dose: 4 units Ondansetron HCl (Zofran Inj) 4 mg IVP Q6 PRN PRN Reason: Nausea/Vomiting Last Admin: 02/07/17 18:47 Dose: 4 mg Pantoprazole Sodium (Protonix Ec Tab) 40 mg PO DAILY [facility] Last Admin: 02/13/17 08:47 Dose: 40 mg Sevelamer HCl (Renagel) 2,400 mg PO TID [facility] Last Admin: 02/13/17 16:36 Dose: 2,400 mg Sitagliptin Phosphate (Januvia) 25 mg PO DAILY [facility] Last Admin: 02/13/17 10:15 Dose: 25 mg Tramadol HCl (Ultram) 50 mg PO Q12 PRN PRN Reason: Pain, moderate (4-7) Last Admin: 02/12/17 09:12 Dose: 50 mg Vitamin B Complex/Vit C/Folic Acid (Nephro-Niko) 1 tab PO DAILY [facility] Last Admin: 02/13/17 08:47 Dose: 1 tab - Labs Labs: 02/14/17 04:00 02/14/17 04:00 PT 14.7 Seconds (9.8-13.1) H 02/13/17 04:00 INR 1.3 (0.9-1.2) H 02/13/17 04:00 APTT 28.6 Seconds (25.6-37.1) 02/13/17 04:00 - Constitutional Appears: Well, Non-toxic, No Acute Distress - Extremities Exam Additional comments: Vasc: DP/PT pulses non palpable b/l. CFT <3 seconds to all digits b/l. Skin temp warm to cool from proximal to distal. Dry gangrenous changes noted to right second digit Neuro: Epicritc and protectice sensation grossly intact b/l Derm: Mild edema and erythema noted to 1st and 2nd digit of right foot. Dry gangrenous changes noted to second digit from level of proximal MTPJ to distal tip. Approx. 0.5 cm eschar noted to medial hallux of right foot. No malodor, drainage, pus or other clinical SOI noted at this time MSK: Mild POP noted to first and second digits of right foot - Neurological Exam Neurological Exam: Alert, Awake, Oriented x3 - Psychiatric Exam Psychiatric exam: Normal Affect, Normal Mood Assessment and Plan - Assessment and Plan (Free Text) Assessment: 76 year old male seen at bedside for R hallux necrotic wound and dry gangrene to right second digit secondary to DM and PAD Plan: Patient seen and evaluated at bedside Plan discussed in detail with Dr. Lebron Chart labs and vitals reviewed CT angiogram with revascularzation planned for later today with Dr. Ferris at [facility] Patient to continue with antibiotics as planned Will consider surgical intervention once revasc is completed Podiatry to follow up
[2017-02-14] MEDS: Cefepime 1 GM in Sodium Chloride 0.9% 100 ML IVPB SCH (08:46)
[2017-02-14] MEDS: Multivitamin Vitamin B Complex (Nephro-Vite) Tab PO SCH (08:47)
[2017-02-14] MEDS: Pantoprazole 40 mg EC Tab PO SCH (08:47)
--- NOTE | 2017-02-14 10:25 | CP.PCM.PN ---
Subjective - Date & Time of Evaluation Date of Evaluation: 02/14/17 Time of Evaluation: 10:22 - Subjective Subjective: Patient and bed appears to be comfortable Vital signs stable No pain reported today Objective - Vital Signs/Intake and Output Vital Signs (last 24 hours): Temp Pulse Resp BP Pulse Ox 98.4 F 90 13 125/58 L 100 02/14/17 07:59 02/14/17 07:59 02/14/17 07:59 02/14/17 07:59 02/14/17 07:59 Intake and Output: 02/14/17 02/14/17 06:59 18:59 Intake Total 480 100 Balance 480 100 - Medications Medications: Current Medications Acetaminophen (Tylenol 325mg Tab) 650 mg PO Q6 PRN PRN Reason: Pain, moderate (4-7) Aspirin (Ecotrin) 81 mg PO DAILY [facility] Last Admin: 02/07/17 09:00 Dose: Not Given Atorvastatin Calcium (Lipitor) 10 mg PO HS [facility] Last Admin: 02/13/17 21:03 Dose: 10 mg Epoetin Avery (Procrit) 15,000 unit IV MWF [facility] Last Admin: 02/13/17 10:16 Dose: 15,000 unit Heparin Sodium (Porcine) (Heparin) 5,000 units SC Q8 [facility] PRN Reason: Protocol Last Admin: 02/07/17 09:00 Dose: Not Given Hydromorphone HCl (Dilaudid) 0.5 mg IVP Q6 PRN PRN Reason: Pain, severe (8-10) Last Admin: 02/14/17 05:23 Dose: 0.5 mg Cefepime HCl 1 gm/ Sodium (Chloride) 100 mls @ 100 mls/hr IVPB DAILY [facility] Last Admin: 02/14/17 08:46 Dose: 100 mls/hr Insulin Human Regular (Humulin R) 0 units SC ACHS [facility] PRN Reason: Protocol Last Admin: 02/14/17 06:46 Dose: 4 units Ondansetron HCl (Zofran Inj) 4 mg IVP Q6 PRN PRN Reason: Nausea/Vomiting Last Admin: 02/07/17 18:47 Dose: 4 mg Pantoprazole Sodium (Protonix Ec Tab) 40 mg PO DAILY [facility] Last Admin: 02/14/17 08:47 Dose: Not Given Sevelamer HCl (Renagel) 2,400 mg PO TID [facility] Last Admin: 02/14/17 08:47 Dose: Not Given Sitagliptin Phosphate (Januvia) 25 mg PO DAILY [facility] Last Admin: 02/14/17 08:45 Dose: Not Given Vitamin B Complex/Vit C/Folic Acid (Nephro-Niko) 1 tab PO DAILY [facility] Last Admin: 02/14/17 08:47 Dose: Not Given - Labs Labs: 02/14/17 04:00 02/14/17 04:00 PT 14.7 Seconds (9.8-13.1) H 02/13/17 04:00 INR 1.3 (0.9-1.2) H 02/13/17 04:00 APTT 28.6 Seconds (25.6-37.1) 02/13/17 04:00 - Constitutional Appears: No Acute Distress - ENT Exam ENT Exam: absent: Mucous Membranes Moist - Respiratory Exam Respiratory Exam: NORMAL BREATHING PATTERN - Cardiovascular Exam Cardiovascular Exam: REGULAR RHYTHM. absent: Rubs - GI/Abdominal Exam GI & Abdominal Exam: Normal Bowel Sounds - Extremities Exam Extremities Exam: absent: Calf Tenderness - Back Exam Back Exam: absent: CVA tenderness (L), CVA tenderness (R) - Neurological Exam Neurological Exam: Alert Assessment and Plan (1) Ulcer of foot Status: Chronic (2) CHF (congestive heart failure) Status: Chronic (3) ESRD (end stage renal disease) on dialysis Status: Chronic
--- NOTE | 2017-02-14 10:43 | CP.PCM.PN ---
Subjective - Date & Time of Evaluation Date of Evaluation: 02/14/17 Time of Evaluation: 08:00 - Subjective Subjective: NO CHEST PAIN OR SOB LESS RIGHT FOOT PAIN Objective - Vital Signs/Intake and Output Vital Signs (last 24 hours): Temp Pulse Resp BP Pulse Ox 98.4 F 84 16 139/65 99 02/14/17 07:59 02/14/17 10:00 02/14/17 10:00 02/14/17 10:00 02/14/17 10:00 Intake and Output: 02/14/17 02/14/17 06:59 18:59 Intake Total 480 100 Balance 480 100 - Medications Medications: Current Medications Acetaminophen (Tylenol 325mg Tab) 650 mg PO Q6 PRN PRN Reason: Pain, moderate (4-7) Aspirin (Ecotrin) 81 mg PO DAILY [facility] Last Admin: 02/07/17 09:00 Dose: Not Given Atorvastatin Calcium (Lipitor) 10 mg PO HS [facility] Last Admin: 02/13/17 21:03 Dose: 10 mg Epoetin Avery (Procrit) 15,000 unit IV MWF [facility] Last Admin: 02/13/17 10:16 Dose: 15,000 unit Heparin Sodium (Porcine) (Heparin) 5,000 units SC Q8 [facility] PRN Reason: Protocol Last Admin: 02/07/17 09:00 Dose: Not Given Hydromorphone HCl (Dilaudid) 0.5 mg IVP Q6 PRN PRN Reason: Pain, severe (8-10) Last Admin: 02/14/17 05:23 Dose: 0.5 mg Cefepime HCl 1 gm/ Sodium (Chloride) 100 mls @ 100 mls/hr IVPB DAILY [facility] Last Admin: 02/14/17 08:46 Dose: 100 mls/hr Insulin Human Regular (Humulin R) 0 units SC ACHS [facility] PRN Reason: Protocol Last Admin: 02/14/17 06:46 Dose: 4 units Ondansetron HCl (Zofran Inj) 4 mg IVP Q6 PRN PRN Reason: Nausea/Vomiting Last Admin: 02/07/17 18:47 Dose: 4 mg Pantoprazole Sodium (Protonix Ec Tab) 40 mg PO DAILY [facility] Last Admin: 02/14/17 08:47 Dose: Not Given Sevelamer HCl (Renagel) 2,400 mg PO TID [facility] Last Admin: 02/14/17 08:47 Dose: Not Given Sitagliptin Phosphate (Januvia) 25 mg PO DAILY [facility] Last Admin: 02/14/17 08:45 Dose: Not Given Vitamin B Complex/Vit C/Folic Acid (Nephro-Niko) 1 tab PO DAILY [facility] Last Admin: 02/14/17 08:47 Dose: Not Given - Labs Labs: 02/14/17 04:00 02/14/17 04:00 PT 14.7 Seconds (9.8-13.1) H 02/13/17 04:00 INR 1.3 (0.9-1.2) H 02/13/17 04:00 APTT 28.6 Seconds (25.6-37.1) 02/13/17 04:00 - Respiratory Exam Respiratory Exam: Decreased Breath Sounds - Cardiovascular Exam Cardiovascular Exam: REGULAR RHYTHM, +S1, +S2 - Extremities Exam Additional comments: RIGHT FOOT CYANOSIS, TOE ULCERS AND GANGRENOUS CHANGES Assessment and Plan - Assessment and Plan (Free Text) Assessment: PAD WITH RIGHT FOOT ISCHEMIC CHANGES CAD HYPERTENSION DM CRF ON HD Plan: TO [facility] TODAY FOR PERIPHERAL VASCULAR PROCEDURE BY DR ROBERSON
--- NOTE | 2017-02-14 11:17 | CP.PCM.PN ---
<Jhonny Mcdonough - Last Filed: 02/14/17 11:15> Subjective - Date & Time of Evaluation Date of Evaluation: 02/14/17 Time of Evaluation: 10:16 - Subjective Subjective: Patient seen and evaluated at bedside with attending. No acute events overnight. Improved right toe/foot pain. No fever/chills overnight. Had BM last night with interventions. No abdominal pain at this time. Spoke with nursing staff and consultants. Patient to go for angio procedure with Dr. Ferris at [facility] and HD after. Objective - Vital Signs/Intake and Output Vital Signs (last 24 hours): Temp Pulse Resp BP Pulse Ox 98.4 F 84 16 139/65 99 02/14/17 07:59 02/14/17 10:00 02/14/17 10:00 02/14/17 10:00 02/14/17 10:00 Intake and Output: 02/14/17 02/14/17 06:59 18:59 Intake Total 480 100 Balance 480 100 - Medications Medications: Current Medications Acetaminophen (Tylenol 325mg Tab) 650 mg PO Q6 PRN PRN Reason: Pain, moderate (4-7) Aspirin (Ecotrin) 81 mg PO DAILY [facility] Last Admin: 02/07/17 09:00 Dose: Not Given Atorvastatin Calcium (Lipitor) 10 mg PO HS [facility] Last Admin: 02/13/17 21:03 Dose: 10 mg Epoetin Avery (Procrit) 15,000 unit IV MWF [facility] Last Admin: 02/13/17 10:16 Dose: 15,000 unit Heparin Sodium (Porcine) (Heparin) 5,000 units SC Q8 [facility] PRN Reason: Protocol Last Admin: 02/07/17 09:00 Dose: Not Given Hydromorphone HCl (Dilaudid) 0.5 mg IVP Q6 PRN PRN Reason: Pain, severe (8-10) Last Admin: 02/14/17 05:23 Dose: 0.5 mg Cefepime HCl 1 gm/ Sodium (Chloride) 100 mls @ 100 mls/hr IVPB DAILY [facility] Last Admin: 02/14/17 08:46 Dose: 100 mls/hr Insulin Human Regular (Humulin R) 0 units SC ACHS [facility] PRN Reason: Protocol Last Admin: 02/14/17 06:46 Dose: 4 units Ondansetron HCl (Zofran Inj) 4 mg IVP Q6 PRN PRN Reason: Nausea/Vomiting Last Admin: 02/07/17 18:47 Dose: 4 mg Pantoprazole Sodium (Protonix Ec Tab) 40 mg PO DAILY [facility] Last Admin: 02/14/17 08:47 Dose: Not Given Sevelamer HCl (Renagel) 2,400 mg PO TID [facility] Last Admin: 02/14/17 08:47 Dose: Not Given Sitagliptin Phosphate (Januvia) 25 mg PO DAILY [facility] Last Admin: 02/14/17 08:45 Dose: Not Given Vitamin B Complex/Vit C/Folic Acid (Nephro-Niko) 1 tab PO DAILY [facility] Last Admin: 02/14/17 08:47 Dose: Not Given - Labs Labs: 02/14/17 04:00 02/14/17 04:00 PT 14.7 Seconds (9.8-13.1) H 02/13/17 04:00 INR 1.3 (0.9-1.2) H 02/13/17 04:00 APTT 28.6 Seconds (25.6-37.1) 02/13/17 04:00 - Constitutional Appears: Well, Non-toxic, No Acute Distress - Head Exam Head Exam: ATRAUMATIC, NORMAL INSPECTION, NORMOCEPHALIC - Eye Exam Eye Exam: Normal appearance - Respiratory Exam Respiratory Exam: Clear to Ausculation Bilateral, NORMAL BREATHING PATTERN - Cardiovascular Exam Cardiovascular Exam: REGULAR RHYTHM, +S1, +S2. absent: Murmur - GI/Abdominal Exam GI & Abdominal Exam: Soft, Normal Bowel Sounds. absent: Tenderness - Extremities Exam Extremities Exam: Normal Inspection Additional comments: right foot noted 2nd toe gangrenous - Neurological Exam Neurological Exam: Alert, Awake - Psychiatric Exam Psychiatric exam: Normal Affect, Normal Mood - Skin Skin Exam: Dry, Intact, Normal Color, Warm Assessment and Plan (1) Ulcer of foot Assessment & Plan: Right foot, 1st/2nd toe Continues to have pain though improved PAD? labs reviewed; WBC 11.7, afebrile, downtrending ID on board, appreciate input Dr. Ferris regarding coordination of Angio at [facility] and HD for today with HD post angio Podiatry on board, appreciate input Vascular on board, appreciate input Status: Chronic (2) Sepsis Assessment & Plan: Secondary to RLL pneumonia with pleural effusion (POA) Sepsis was not POA, though noted with tachycardia, elevated WBC and low BP WBC downtrending Afebrile BP wnl ID on board, appreciate input Status: Acute (3) Diabetes Assessment & Plan: Type 2 NIIDM ISS c/w home meds diabetic diet Accuchecks ACHS Status: Chronic (4) ESRD (end stage renal disease) on dialysis Assessment & Plan: on HD (M/W/F) - extra post angio HD today Renal on board, appreciate input Renal diet c/w home meds Status: Chronic (5) CHF (congestive heart failure) Assessment & Plan: Systolic, Chronic LVEF ~ 20-25% WITH A DEFIBRILLATOR Cardiology on board, appreciate recommendations Status: Chronic (6) Pelvic ring fracture Assessment & Plan: Noted on CT scan of abdomen fall 2 months ago ortho on board, appreciate input PT Status: Acute (7) Anemia Assessment & Plan: 2ndary to renal disease Stable hgb 9.4 at this time Status: Acute (8) Constipation Assessment & Plan: BM yesterday night Continue to monitor Status: Acute <Rocco Huff - Last Filed: 02/15/17 19:31> Objective - Vital Signs/Intake and Output Vital Signs (last 24 hours): Temp Pulse Resp BP Pulse Ox 97.7 F 81 14 111/57 L 97 02/15/17 15:49 02/15/17 18:00 02/15/17 18:00 02/15/17 18:00 02/15/17 18:00 Intake and Output: 02/15/17 02/16/17 18:59 06:59 Intake Total 460 Balance 460 - Medications Medications: Current Medications Acetaminophen (Tylenol 325mg Tab) 650 mg PO Q6 PRN PRN Reason: Pain, moderate (4-7) Aspirin (Ecotrin) 81 mg PO DAILY [facility] Last Admin: 02/07/17 09:00 Dose: Not Given Atorvastatin Calcium (Lipitor) 10 mg PO HS [facility] Last Admin: 02/14/17 21:36 Dose: 10 mg Epoetin Avery (Procrit) 15,000 unit IV MWF [facility] Last Admin: 02/13/17 10:16 Dose: 15,000 unit Heparin Sodium (Porcine) (Heparin) 5,000 units SC Q8 [facility] PRN Reason: Protocol Last Admin: 02/07/17 09:00 Dose: Not Given Cefepime HCl 1 gm/ Sodium (Chloride) 100 mls @ 100 mls/hr IVPB DAILY [facility] Last Admin: 02/15/17 08:33 Dose: 100 mls/hr Insulin Human Regular (Humulin R) 0 units SC ACHS [facility] PRN Reason: Protocol Last Admin: 02/15/17 17:28 Dose: 3 units Ondansetron HCl (Zofran Inj) 4 mg IVP Q6 PRN PRN Reason: Nausea/Vomiting Last Admin: 02/15/17 00:24 Dose: 4 mg Pantoprazole Sodium (Protonix Ec Tab) 40 mg PO DAILY [facility] Last Admin: 02/15/17 08:33 Dose: 40 mg Sevelamer HCl (Renagel) 2,400 mg PO TID [facility] Last Admin: 02/15/17 17:27 Dose: 2,400 mg Sitagliptin Phosphate (Januvia) 25 mg PO DAILY [facility] Last Admin: 02/15/17 08:32 Dose: 25 mg Tramadol HCl (Ultram) 50 mg PO Q4 PRN PRN Reason: Pain, moderate (4-7) Last Admin: 02/15/17 17:30 Dose: 50 mg Vitamin B Complex/Vit C/Folic Acid (Nephro-Niko) 1 tab PO DAILY [facility] Last Admin: 02/15/17 08:32 Dose: 1 tab - Labs Labs: 02/15/17 04:30 02/15/17 04:30 PT 14.7 Seconds (9.8-13.1) H 02/13/17 04:00 INR 1.3 (0.9-1.2) H 02/13/17 04:00 APTT 28.6 Seconds (25.6-37.1) 02/13/17 04:00 Assessment and Plan (1) Cholelithiasis Status: Acute (2) PAD (peripheral artery disease) Status: Acute (3) Ulcer of foot Status: Chronic (4) Gallbladder polyp Status: Acute (5) CKD (chronic kidney disease) stage 5, GFR less than 15 ml/min Status: Acute (6) Pelvic ring fracture Status: Acute - Assessment and Plan (Free Text) Plan: I was present during evaluation and discussed with Dr mcdonough re plans of care and mgt Rocco Huff M.D.
--- NOTE | 2017-02-14 15:23 | VASCLAB ---
STUDY DESCRIPTION: HISTORY: Right foot pain PRIORS: None. TECHNIQUE: Pulse volume recording waveforms and segmental pressures of bilateral lower extremities at multiple levels were obtained. Ankle Brachial Indices (ABIs) were calculated. Report prepared by vascular physician. RIGHT LOWER EXTREMITY: * Brachial artery: Pressure - 130 mmHg. * High thigh: Pressure - 103 mmHg: Ratio - 0.79: PVR waveform - monophasic * Calf: Pressure - 104 mmHg: Ratio - 0.80 PVR waveform: monophasic * Posterior tibial Artery: Pressure - 124 mmHg: Ratio - 0.95 PVR waveform: monophasic * Dorsalis pedis Artery: Pressure - 121 mmHg: Ratio - 0.93 PVR waveform: monophasic * Great toe: Pressure - mmHg: Ratio - PVR waveform: Pulsatile Ankle brachial index (TUTU): 0.95 Ankle brachial index (TUTU): 0.95 LEFT LOWER EXTREMITY: * Brachial artery: Pressure - 130 mmHg. * High thigh: Pressure - 125 mmHg: Ratio - 0.96: PVR waveform - Pulsatile * Calf: Pressure - 116 mmHg: Ratio - 0.89 PVR waveform: monophasic * Posterior tibial Artery: Pressure - 120 mmHg: Ratio - 0.92 PVR waveform: monophasic * Dorsalis pedis Artery: Pressure - 125 mmHg: Ratio - 0.96 PVR waveform: monophasic * Great toe: Pressure - mmHg: Ratio - PVR waveform: Pulsatile Ankle brachial index (TUTU): * Brachial artery: Pressure - 130 mmHg. * High thigh: Pressure - 103 mmHg: Ratio - 0.79: PVR waveform - monophasic * Calf: Pressure - 104 mmHg: Ratio - 0.80 PVR waveform: monophasic * Posterior tibial Artery: Pressure - 124 mmHg: Ratio - 0.95 PVR waveform: monophasic * Dorsalis pedis Artery: Pressure - 121 mmHg: Ratio - 0.93 PVR waveform: monophasic * Great toe: Pressure - mmHg: Ratio - PVR waveform: Pulsatile Ankle brachial index (TUTU): 0.95 OTHER FINDINGS: Right: There was no evidence of hemodynamically significant arterial insufficiency in the right lower extremity. Left: There was no evidence of hemodynamically signifacant arterial insufficency in the left lower extremity. IMPRESSION: Right: Left:
[2017-02-15 05:25] LABS: HEMATOCRIT 31.6 % (35.0-51.0); MEAN CELL VOLUME 72.6 fl (80.0-94.0); MEAN CORPUSCULAR HEMOGLOBIN 21.4 pg (27.0-31.0); MEAN CORPUSCULAR HGB CONC 29.5 g/dL (33.0-37.0); RED CELL DISTRIBUTION WIDTH 19.8 % (11.5-14.5); WHITE BLOOD COUNT 12.4 K/uL (4.8-10.8)
[2017-02-15 05:34] LABS: BILIRUBIN,TOTAL 0.7 mg/dl (0.2-1.3); POTASSIUM 3.3 MMOL/L (3.6-5.0); TOTAL PROTEIN 7.8 G/DL (6.3-8.2)
--- NOTE | 2017-02-15 06:30 | CP.PCM.PN ---
Subjective - Date & Time of Evaluation Date of Evaluation: 02/14/17 Time of Evaluation: 17:00 - Subjective Subjective: peripheral angiogram performed. R SFA severely calcified mid 95% 2 vessel run off to the right foot. Diseased R AT but brisk flow to the dorsalis pedis. Intervention: Atherectomy mid RSFA with CSI Diamondback 1.5 solid crown Lutonix 4.0 x 100 drug coted balloon angioplasty Excellent angiographic result, brisk antegrade flow to foot. Plan: ASA/Plavix. Objective - Vital Signs/Intake and Output Vital Signs (last 24 hours): Temp Pulse Resp BP Pulse Ox 98.2 F 90 15 122/71 97 02/15/17 04:00 02/15/17 06:00 02/15/17 06:00 02/15/17 06:00 02/15/17 06:00 Intake and Output: 02/14/17 02/15/17 18:59 06:59 Intake Total 100 180 Output Total 2000 Balance 100 -1820 - Medications Medications: Current Medications Acetaminophen (Tylenol 325mg Tab) 650 mg PO Q6 PRN PRN Reason: Pain, moderate (4-7) Aspirin (Ecotrin) 81 mg PO DAILY [facility] Last Admin: 02/07/17 09:00 Dose: Not Given Atorvastatin Calcium (Lipitor) 10 mg PO HS [facility] Last Admin: 02/14/17 21:36 Dose: 10 mg Epoetin Avery (Procrit) 15,000 unit IV MWF [facility] Last Admin: 02/13/17 10:16 Dose: 15,000 unit Heparin Sodium (Porcine) (Heparin) 5,000 units SC Q8 [facility] PRN Reason: Protocol Last Admin: 02/07/17 09:00 Dose: Not Given Cefepime HCl 1 gm/ Sodium (Chloride) 100 mls @ 100 mls/hr IVPB DAILY [facility] Last Admin: 02/14/17 08:46 Dose: 100 mls/hr Insulin Human Regular (Humulin R) 0 units SC ACHS [facility] PRN Reason: Protocol Last Admin: 02/14/17 21:36 Dose: Not Given Ondansetron HCl (Zofran Inj) 4 mg IVP Q6 PRN PRN Reason: Nausea/Vomiting Last Admin: 02/15/17 00:24 Dose: 4 mg Pantoprazole Sodium (Protonix Ec Tab) 40 mg PO DAILY [facility] Last Admin: 02/14/17 08:47 Dose: Not Given Sevelamer HCl (Renagel) 2,400 mg PO TID [facility] Last Admin: 02/14/17 21:04 Dose: Not Given Sitagliptin Phosphate (Januvia) 25 mg PO DAILY [facility] Last Admin: 02/14/17 08:45 Dose: Not Given Tramadol HCl (Ultram) 50 mg PO Q4 PRN PRN Reason: Pain, moderate (4-7) Last Admin: 02/15/17 03:45 Dose: 50 mg Vitamin B Complex/Vit C/Folic Acid (Nephro-Niko) 1 tab PO DAILY [facility] Last Admin: 02/14/17 08:47 Dose: Not Given - Labs Labs: 02/15/17 04:30 02/15/17 04:30 PT 14.7 Seconds (9.8-13.1) H 02/13/17 04:00 INR 1.3 (0.9-1.2) H 02/13/17 04:00 APTT 28.6 Seconds (25.6-37.1) 02/13/17 04:00 Assessment and Plan (1) PAD (peripheral artery disease) Status: Acute (2) CAD (coronary artery disease) Status: Acute (3) Ischemic cardiomyopathy Status: Acute (4) ESRD (end stage renal disease) Status: Acute
--- NOTE | 2017-02-15 06:54 | CP.PCM.PN ---
Subjective - Date & Time of Evaluation Date of Evaluation: 02/15/17 Time of Evaluation: 06:52 - Subjective Subjective: 76 year old male seen at bedside in ICU for necrotic wound to right hallux and gangrenous changes to right second digit. Patient appears to be resting comfortably in his bed at this time in [facility] and is AAOx3. Patient denies any acute overnight events. He states that he is in no pain at this time. Patient denies N/V/F/C/CP/SOB. Patient denies any further pedal complaints at this time.Patient went to [facility] for vascular intervention yesterday. Objective - Vital Signs/Intake and Output Vital Signs (last 24 hours): Temp Pulse Resp BP Pulse Ox 98.2 F 90 15 122/71 97 02/15/17 04:00 02/15/17 06:00 02/15/17 06:00 02/15/17 06:00 02/15/17 06:00 Intake and Output: 02/14/17 02/15/17 18:59 06:59 Intake Total 100 180 Output Total 2000 Balance 100 -1820 - Medications Medications: Current Medications Acetaminophen (Tylenol 325mg Tab) 650 mg PO Q6 PRN PRN Reason: Pain, moderate (4-7) Aspirin (Ecotrin) 81 mg PO DAILY [facility] Last Admin: 02/07/17 09:00 Dose: Not Given Atorvastatin Calcium (Lipitor) 10 mg PO HS [facility] Last Admin: 02/14/17 21:36 Dose: 10 mg Epoetin Avery (Procrit) 15,000 unit IV MWF [facility] Last Admin: 02/13/17 10:16 Dose: 15,000 unit Heparin Sodium (Porcine) (Heparin) 5,000 units SC Q8 [facility] PRN Reason: Protocol Last Admin: 02/07/17 09:00 Dose: Not Given Cefepime HCl 1 gm/ Sodium (Chloride) 100 mls @ 100 mls/hr IVPB DAILY [facility] Last Admin: 02/14/17 08:46 Dose: 100 mls/hr Insulin Human Regular (Humulin R) 0 units SC ACHS [facility] PRN Reason: Protocol Last Admin: 02/14/17 21:36 Dose: Not Given Ondansetron HCl (Zofran Inj) 4 mg IVP Q6 PRN PRN Reason: Nausea/Vomiting Last Admin: 02/15/17 00:24 Dose: 4 mg Pantoprazole Sodium (Protonix Ec Tab) 40 mg PO DAILY [facility] Last Admin: 02/14/17 08:47 Dose: Not Given Sevelamer HCl (Renagel) 2,400 mg PO TID [facility] Last Admin: 02/14/17 21:04 Dose: Not Given Sitagliptin Phosphate (Januvia) 25 mg PO DAILY [facility] Last Admin: 02/14/17 08:45 Dose: Not Given Tramadol HCl (Ultram) 50 mg PO Q4 PRN PRN Reason: Pain, moderate (4-7) Last Admin: 02/15/17 03:45 Dose: 50 mg Vitamin B Complex/Vit C/Folic Acid (Nephro-Niko) 1 tab PO DAILY [facility] Last Admin: 02/14/17 08:47 Dose: Not Given - Labs Labs: 02/15/17 04:30 02/15/17 04:30 PT 14.7 Seconds (9.8-13.1) H 02/13/17 04:00 INR 1.3 (0.9-1.2) H 02/13/17 04:00 APTT 28.6 Seconds (25.6-37.1) 02/13/17 04:00 - Constitutional Appears: Well, Non-toxic, No Acute Distress - Extremities Exam Additional comments: Vasc: PT pulses lightly palpable on R, nonpalpable L. CFT <3 seconds to all digits b/l. Skin temp warm to cool from proximal to distal. Dry gangrenous changes noted to right second digit Neuro: Epicritc and protectice sensation grossly intact b/l Derm: Mild edema and erythema noted to 1st and 2nd digit of right foot. Dry gangrenous changes noted to second digit from level of proximal MTPJ to distal tip. Approx. 0.5 cm eschar noted to medial hallux of right foot. No malodor, drainage, pus or other clinical SOI noted at this time MSK: Mild POP noted to first and second digits of right foot - Neurological Exam Neurological Exam: Alert, Awake, Oriented x3 - Psychiatric Exam Psychiatric exam: Normal Affect, Normal Mood Assessment and Plan - Assessment and Plan (Free Text) Assessment: 76 year old male seen at bedside for R hallux necrotic wound and dry gangrene to right second digit secondary to DM and PAD Plan: Patient seen and evaluated at bedside Plan discussed in detail with Dr. Lebron Chart labs and vitals reviewed CT angiogram with revascularzation yesterday by Dr. Ferris- [place] SFA severely calcified mid 95% 2 vessel run off to the right foot. Diseased R AT but brisk flow to the dorsalis pedis. Patient to continue with antibiotics as planned Podiatry to follow up
[2017-02-15] MEDS: Insulin Regular 100 units/ml SC SCH ×4 (07:23→21:30)
[2017-02-15] MEDS: Multivitamin Vitamin B Complex (Nephro-Vite) Tab PO SCH (08:32)
[2017-02-15] MEDS: Cefepime 1 GM in Sodium Chloride 0.9% 100 ML IVPB SCH (08:33)
[2017-02-15] MEDS: Pantoprazole 40 mg EC Tab PO SCH (08:33)
--- NOTE | 2017-02-15 09:03 | PQF PNEUMO ---
This form is a permanent part of the medical record 02/15/17 Dr. Huff, Would you please clarify the possible Type of Pneumonia if known. Patient who is hemodialysis dependent presents with a diabetic PVD ulcer. CXR on admission with RLL infiltrate. Documentation of RLL pneumonia with pleural effusion. Treated with Cefepime. Clarification of your documentation is requested to better reflect the severity of illness and intensity of treatment of your patient. PHYSICIAN'S RESPONSE Based on your medical judgment of the clinical indicators outlined above, are you treating this patient for a known or suspected: [] Aspiration pneumonia [] Community acquired pneumonia [] Ventilator associated pneumonia [] Viral pneumonia [] Bacterial pneumonia Please specify organism: [] [] Other, please indicate : [] If Unable to Determine, please check the box, sign and date. Present On Admission (POA) Indicator: [] Present at the time of admission [] Not present at the time of admission [] Clinically Undetermined In responding to this query, please exercise your independent professional judgment. The fact that a question is asked does not imply that any particular answer is desired or expected. Thank you for your clarification on this documentation. If you have any questions please call:[phone] Medical Records Dept * Thank you, Luna Walker RN CDMP MTDD
--- NOTE | 2017-02-15 09:05 | CP.PCM.PN ---
Subjective - Date & Time of Evaluation Date of Evaluation: 02/15/17 Time of Evaluation: 09:01 - Subjective Subjective: feels better less pain in foot completed HD early AM chest clear HT. no rubs abdom. soft ext no edema, warm RT. foot S/P angioplasty RT. leg ,as noted PVD ESRD HD tomrrow then MWF Objective - Vital Signs/Intake and Output Vital Signs (last 24 hours): Temp Pulse Resp BP Pulse Ox 98.7 F 87 16 123/53 L 93 L 02/15/17 07:31 02/15/17 07:31 02/15/17 07:31 02/15/17 07:31 02/15/17 07:31 Intake and Output: 02/15/17 02/15/17 06:59 18:59 Intake Total 180 Output Total 1999 Balance -1820 - Medications Medications: Current Medications Acetaminophen (Tylenol 325mg Tab) 650 mg PO Q6 PRN PRN Reason: Pain, moderate (4-7) Aspirin (Ecotrin) 81 mg PO DAILY [facility] Last Admin: 02/07/17 09:00 Dose: Not Given Atorvastatin Calcium (Lipitor) 10 mg PO HS [facility] Last Admin: 02/14/17 21:36 Dose: 10 mg Epoetin Avery (Procrit) 15,000 unit IV MWF [facility] Last Admin: 02/13/17 10:16 Dose: 15,000 unit Heparin Sodium (Porcine) (Heparin) 5,000 units SC Q8 [facility] PRN Reason: Protocol Last Admin: 02/07/17 09:00 Dose: Not Given Cefepime HCl 1 gm/ Sodium (Chloride) 100 mls @ 100 mls/hr IVPB DAILY [facility] Last Admin: 02/15/17 08:33 Dose: 100 mls/hr Insulin Human Regular (Humulin R) 0 units SC ACHS [facility] PRN Reason: Protocol Last Admin: 02/15/17 07:23 Dose: 2 units Ondansetron HCl (Zofran Inj) 4 mg IVP Q6 PRN PRN Reason: Nausea/Vomiting Last Admin: 02/15/17 00:24 Dose: 4 mg Pantoprazole Sodium (Protonix Ec Tab) 40 mg PO DAILY [facility] Last Admin: 02/15/17 08:33 Dose: 40 mg Sevelamer HCl (Renagel) 2,400 mg PO TID [facility] Last Admin: 02/15/17 08:33 Dose: 2,400 mg Sitagliptin Phosphate (Januvia) 25 mg PO DAILY [facility] Last Admin: 02/15/17 08:32 Dose: 25 mg Tramadol HCl (Ultram) 50 mg PO Q4 PRN PRN Reason: Pain, moderate (4-7) Last Admin: 02/15/17 03:45 Dose: 50 mg Vitamin B Complex/Vit C/Folic Acid (Nephro-Niko) 1 tab PO DAILY [facility] Last Admin: 02/15/17 08:32 Dose: 1 tab - Labs Labs: 02/15/17 04:30 02/15/17 04:30 PT 14.7 Seconds (9.8-13.1) H 02/13/17 04:00 INR 1.3 (0.9-1.2) H 02/13/17 04:00 APTT 28.6 Seconds (25.6-37.1) 02/13/17 04:00 - Constitutional Appears: No Acute Distress - ENT Exam ENT Exam: Mucous Membranes Moist - Respiratory Exam Respiratory Exam: NORMAL BREATHING PATTERN. absent: Chest Wall Tenderness - Cardiovascular Exam Cardiovascular Exam: REGULAR RHYTHM. absent: Rubs - GI/Abdominal Exam GI & Abdominal Exam: Normal Bowel Sounds - Extremities Exam Extremities Exam: absent: Calf Tenderness - Back Exam Back Exam: absent: CVA tenderness (L), CVA tenderness (R) Assessment and Plan (1) Ulcer of foot Status: Chronic (2) CHF (congestive heart failure) Status: Chronic (3) ESRD (end stage renal disease) on dialysis Status: Chronic
--- NOTE | 2017-02-15 11:03 | CP.PCM.PN ---
Subjective - Date & Time of Evaluation Date of Evaluation: 02/15/17 Time of Evaluation: 08:45 - Subjective Subjective: NO CHEST PAIN OR SOB RLE FEELS BETTER Objective - Vital Signs/Intake and Output Vital Signs (last 24 hours): Temp Pulse Resp BP Pulse Ox 98.7 F 84 14 108/51 L 94 L 02/15/17 07:31 02/15/17 10:00 02/15/17 10:00 02/15/17 10:00 02/15/17 10:00 Intake and Output: 02/15/17 02/15/17 06:59 18:59 Intake Total 180 340 Output Total 1999 Balance -1820 340 - Medications Medications: Current Medications Acetaminophen (Tylenol 325mg Tab) 650 mg PO Q6 PRN PRN Reason: Pain, moderate (4-7) Aspirin (Ecotrin) 81 mg PO DAILY [facility] Last Admin: 02/07/17 09:00 Dose: Not Given Atorvastatin Calcium (Lipitor) 10 mg PO HS [facility] Last Admin: 02/14/17 21:36 Dose: 10 mg Epoetin Avery (Procrit) 15,000 unit IV MWF [facility] Last Admin: 02/13/17 10:16 Dose: 15,000 unit Heparin Sodium (Porcine) (Heparin) 5,000 units SC Q8 [facility] PRN Reason: Protocol Last Admin: 02/07/17 09:00 Dose: Not Given Cefepime HCl 1 gm/ Sodium (Chloride) 100 mls @ 100 mls/hr IVPB DAILY [facility] Last Admin: 02/15/17 08:33 Dose: 100 mls/hr Insulin Human Regular (Humulin R) 0 units SC ACHS [facility] PRN Reason: Protocol Last Admin: 02/15/17 07:23 Dose: 2 units Ondansetron HCl (Zofran Inj) 4 mg IVP Q6 PRN PRN Reason: Nausea/Vomiting Last Admin: 02/15/17 00:24 Dose: 4 mg Pantoprazole Sodium (Protonix Ec Tab) 40 mg PO DAILY [facility] Last Admin: 02/15/17 08:33 Dose: 40 mg Sevelamer HCl (Renagel) 2,400 mg PO TID [facility] Last Admin: 02/15/17 08:33 Dose: 2,400 mg Sitagliptin Phosphate (Januvia) 25 mg PO DAILY [facility] Last Admin: 02/15/17 08:32 Dose: 25 mg Tramadol HCl (Ultram) 50 mg PO Q4 PRN PRN Reason: Pain, moderate (4-7) Last Admin: 02/15/17 03:45 Dose: 50 mg Vitamin B Complex/Vit C/Folic Acid (Nephro-Niko) 1 tab PO DAILY [facility] Last Admin: 02/15/17 08:32 Dose: 1 tab - Labs Labs: 02/15/17 04:30 02/15/17 04:30 PT 14.7 Seconds (9.8-13.1) H 02/13/17 04:00 INR 1.3 (0.9-1.2) H 02/13/17 04:00 APTT 28.6 Seconds (25.6-37.1) 02/13/17 04:00 - Respiratory Exam Respiratory Exam: Clear to Ausculation Bilateral - Cardiovascular Exam Cardiovascular Exam: REGULAR RHYTHM, +S1, +S2 - Extremities Exam Additional comments: RT FOOT WARMER TODAY - Additional Findings Additional findings: CHORE TENDER SINUS WITH ATRIAL SENSED, VENTRICULAR PACING I SPOKE TO DR ROBERSON AND THE PATIENT HAD 95% OCCLUSION OF THE RT SFA AND AN ATHERECTOMY AND ALSO DRUG ELUTUNG BALLOON ANGIOPLASTY WITH EXCELLENT FLOW AFTERWARDS Assessment and Plan - Assessment and Plan (Free Text) Assessment: CAD HYPERTENSION CRF SEVERE PAD WITH REPERFUSION OF RLE Plan: CONTINUE ASPIRIN, CLOPIDOGREL, HEPARIN, ATORVASTATIN, ANTIBIOTICS, JANUVIA PODIATRY FU ON STATUS OF RT FOOT DIGITS AND POSSIBLE NEED FOR AMPUTATION
--- NOTE | 2017-02-15 12:58 | CP.PCM.PN ---
Subjective - Date & Time of Evaluation Date of Evaluation: 02/15/17 Time of Evaluation: 08:00 - Subjective Subjective: s/p angioplasty dry gangrene same cont rx, HD, wound care Objective - Vital Signs/Intake and Output Vital Signs (last 24 hours): Temp Pulse Resp BP Pulse Ox 98.7 F 81 13 135/56 L 96 02/15/17 11:44 02/15/17 11:44 02/15/17 11:44 02/15/17 11:44 02/15/17 11:44 Intake and Output: 02/15/17 02/15/17 06:59 18:59 Intake Total 180 340 Output Total 1999 Balance -1820 340 - Medications Medications: Current Medications Acetaminophen (Tylenol 325mg Tab) 650 mg PO Q6 PRN PRN Reason: Pain, moderate (4-7) Aspirin (Ecotrin) 81 mg PO DAILY [facility] Last Admin: 02/07/17 09:00 Dose: Not Given Atorvastatin Calcium (Lipitor) 10 mg PO HS [facility] Last Admin: 02/14/17 21:36 Dose: 10 mg Epoetin Avery (Procrit) 15,000 unit IV MWF [facility] Last Admin: 02/13/17 10:16 Dose: 15,000 unit Heparin Sodium (Porcine) (Heparin) 5,000 units SC Q8 [facility] PRN Reason: Protocol Last Admin: 02/07/17 09:00 Dose: Not Given Cefepime HCl 1 gm/ Sodium (Chloride) 100 mls @ 100 mls/hr IVPB DAILY [facility] Last Admin: 02/15/17 08:33 Dose: 100 mls/hr Insulin Human Regular (Humulin R) 0 units SC ACHS [facility] PRN Reason: Protocol Last Admin: 02/15/17 11:49 Dose: 3 units Ondansetron HCl (Zofran Inj) 4 mg IVP Q6 PRN PRN Reason: Nausea/Vomiting Last Admin: 02/15/17 00:24 Dose: 4 mg Pantoprazole Sodium (Protonix Ec Tab) 40 mg PO DAILY [facility] Last Admin: 02/15/17 08:33 Dose: 40 mg Sevelamer HCl (Renagel) 2,400 mg PO TID [facility] Last Admin: 02/15/17 11:56 Dose: 2,400 mg Sitagliptin Phosphate (Januvia) 25 mg PO DAILY [facility] Last Admin: 02/15/17 08:32 Dose: 25 mg Tramadol HCl (Ultram) 50 mg PO Q4 PRN PRN Reason: Pain, moderate (4-7) Last Admin: 02/15/17 11:48 Dose: 50 mg Vitamin B Complex/Vit C/Folic Acid (Nephro-Niko) 1 tab PO DAILY [facility] Last Admin: 02/15/17 08:32 Dose: 1 tab - Labs Labs: 02/15/17 04:30 02/15/17 04:30 PT 14.7 Seconds (9.8-13.1) H 02/13/17 04:00 INR 1.3 (0.9-1.2) H 02/13/17 04:00 APTT 28.6 Seconds (25.6-37.1) 02/13/17 04:00 - Constitutional Appears: Non-toxic, Cachectic, Chronically Ill - Head Exam Head Exam: NORMOCEPHALIC - Eye Exam Eye Exam: PERRL. absent: Scleral icterus - ENT Exam ENT Exam: Mucous Membranes Dry, Normal External Ear Exam - Neck Exam Neck Exam: absent: Lymphadenopathy - Respiratory Exam Respiratory Exam: Decreased Breath Sounds - Cardiovascular Exam Cardiovascular Exam: REGULAR RHYTHM, +S1, +S2 - GI/Abdominal Exam GI & Abdominal Exam: Distended, Soft. absent: Tenderness - Rectal Exam Rectal Exam: Deferred - Exam Exam: NORMAL INSPECTION - Extremities Exam Extremities Exam: Pedal Edema. absent: Calf Tenderness, Normal Inspection, Tenderness - Back Exam Back Exam: absent: CVA tenderness (L), CVA tenderness (R) - Neurological Exam Neurological Exam: Alert, Awake, Oriented x3 Neuro motor strength exam: Left Upper Extremity: 3, Right Upper Extremity: 3, Left Lower Extremity: 3, Right Lower Extremity: 3 - Psychiatric Exam Psychiatric exam: Normal Mood - Skin Skin Exam: Dry Assessment and Plan (1) Ulcer of foot Status: Chronic (2) ESRD (end stage renal disease) Status: Acute (3) CHF (congestive heart failure) Status: Chronic (4) Diabetes Status: Chronic
--- NOTE | 2017-02-15 19:35 | CP.PCM.PN ---
Subjective - Date & Time of Evaluation Date of Evaluation: 02/15/17 Time of Evaluation: 11:00 - Subjective Subjective: Patient has less pain on the toe Has no chest pain or SOB scheduled for surgery/ amputation of gangrenous toe. Objective - Vital Signs/Intake and Output Vital Signs (last 24 hours): Temp Pulse Resp BP Pulse Ox 97.7 F 81 14 111/57 L 97 02/15/17 15:49 02/15/17 18:00 02/15/17 18:00 02/15/17 18:00 02/15/17 18:00 Intake and Output: 02/15/17 02/16/17 18:59 06:59 Intake Total 460 Balance 460 - Medications Medications: Current Medications Acetaminophen (Tylenol 325mg Tab) 650 mg PO Q6 PRN PRN Reason: Pain, moderate (4-7) Aspirin (Ecotrin) 81 mg PO DAILY [facility] Last Admin: 02/07/17 09:00 Dose: Not Given Atorvastatin Calcium (Lipitor) 10 mg PO HS [facility] Last Admin: 02/14/17 21:36 Dose: 10 mg Epoetin Avery (Procrit) 15,000 unit IV MWF [facility] Last Admin: 02/13/17 10:16 Dose: 15,000 unit Heparin Sodium (Porcine) (Heparin) 5,000 units SC Q8 [facility] PRN Reason: Protocol Last Admin: 02/07/17 09:00 Dose: Not Given Cefepime HCl 1 gm/ Sodium (Chloride) 100 mls @ 100 mls/hr IVPB DAILY [facility] Last Admin: 02/15/17 08:33 Dose: 100 mls/hr Insulin Human Regular (Humulin R) 0 units SC ACHS [facility] PRN Reason: Protocol Last Admin: 02/15/17 17:28 Dose: 3 units Ondansetron HCl (Zofran Inj) 4 mg IVP Q6 PRN PRN Reason: Nausea/Vomiting Last Admin: 02/15/17 00:24 Dose: 4 mg Pantoprazole Sodium (Protonix Ec Tab) 40 mg PO DAILY [facility] Last Admin: 02/15/17 08:33 Dose: 40 mg Sevelamer HCl (Renagel) 2,400 mg PO TID [facility] Last Admin: 02/15/17 17:27 Dose: 2,400 mg Sitagliptin Phosphate (Januvia) 25 mg PO DAILY [facility] Last Admin: 02/15/17 08:32 Dose: 25 mg Tramadol HCl (Ultram) 50 mg PO Q4 PRN PRN Reason: Pain, moderate (4-7) Last Admin: 02/15/17 17:30 Dose: 50 mg Vitamin B Complex/Vit C/Folic Acid (Nephro-Niko) 1 tab PO DAILY [facility] Last Admin: 02/15/17 08:32 Dose: 1 tab - Labs Labs: 02/15/17 04:30 02/15/17 04:30 PT 14.7 Seconds (9.8-13.1) H 02/13/17 04:00 INR 1.3 (0.9-1.2) H 02/13/17 04:00 APTT 28.6 Seconds (25.6-37.1) 02/13/17 04:00 - Head Exam Head Exam: NORMAL INSPECTION - Eye Exam Eye Exam: Normal appearance - ENT Exam ENT Exam: Mucous Membranes Moist - Respiratory Exam Respiratory Exam: Clear to Ausculation Bilateral - Cardiovascular Exam Cardiovascular Exam: REGULAR RHYTHM - GI/Abdominal Exam GI & Abdominal Exam: Normal Bowel Sounds - Neurological Exam Neurological Exam: Awake, Oriented x3 - Psychiatric Exam Psychiatric exam: Normal Mood Assessment and Plan (1) Cholelithiasis Status: Acute (2) PAD (peripheral artery disease) Status: Acute (3) Ulcer of foot Status: Chronic (4) Gallbladder polyp Status: Acute (5) CKD (chronic kidney disease) stage 5, GFR less than 15 ml/min Status: Acute (6) Pelvic ring fracture Status: Acute (7) Gangrene of toe Status: Acute - Assessment and Plan (Free Text) Plan: cont meds Cont tx discussed with Dr Ferris Patient is medically stable for toe amputation tomorrow.
[2017-02-15] MEDS: Epoetin Alfa 20000 UNIT/ML (RENAL DOSE) IV SCH (21:04)
[2017-02-16 04:42] LABS: HEMATOCRIT 31.3 % (35.0-51.0); MEAN CELL VOLUME 73.1 fl (80.0-94.0); MEAN CORPUSCULAR HEMOGLOBIN 21.6 pg (27.0-31.0); MEAN CORPUSCULAR HGB CONC 29.5 g/dL (33.0-37.0); RED CELL DISTRIBUTION WIDTH 19.9 % (11.5-14.5); WHITE BLOOD COUNT 13.9 K/uL (4.8-10.8)
[2017-02-16 04:49] LABS: CALCIUM 9.3 mg/dL (8.4-10.2); POTASSIUM 4.6 MMOL/L (3.6-5.0)
[2017-02-16] MEDS: Insulin Regular 100 units/ml SC SCH ×4 (06:39→22:28)
[2017-02-16] MEDS ORDERED: Propofol 10 mg/ml Inj (20 ML) ONE (13:08)
[2017-02-16] MEDS ORDERED: Midazolam 2 MG/2 ML VIAL ONE (13:08)
[2017-02-16] MEDS ORDERED: Etomidate 20 mg/10ml Inj IV ONE (13:08)
[2017-02-16] MEDS ORDERED: Sodium Chloride 0.9% 500 ML IV ONE (13:10)
[2017-02-16] MEDS ORDERED: Lidocaine 1% Inj (20ml) IJ ONE (13:40)
[2017-02-16] MEDS ORDERED: Bupivacaine 0.5% Inj(30mL) IJ ONE (13:40)
--- NOTE | 2017-02-16 13:47 | CP.PCM.PN ---
Subjective - Date & Time of Evaluation Date of Evaluation: 02/16/17 Time of Evaluation: 09:30 - Subjective Subjective: NO CHEST PAIN OR SOB Objective - Vital Signs/Intake and Output Vital Signs (last 24 hours): Temp Pulse Resp BP Pulse Ox 98.2 F 87 14 121/57 L 93 L 02/16/17 12:00 02/16/17 12:00 02/16/17 12:00 02/16/17 12:00 02/16/17 12:00 Intake and Output: 02/16/17 02/16/17 06:59 18:59 Intake Total 180 Output Total 0 Balance 180 - Medications Medications: Current Medications Acetaminophen (Tylenol 325mg Tab) 650 mg PO Q6 PRN PRN Reason: Pain, moderate (4-7) Aspirin (Ecotrin) 81 mg PO DAILY [facility] Last Admin: 02/07/17 09:00 Dose: Not Given Atorvastatin Calcium (Lipitor) 10 mg PO HS [facility] Last Admin: 02/15/17 21:06 Dose: 10 mg Epoetin Avery (Procrit) 15,000 unit IV MWF [facility] Last Admin: 02/15/17 21:04 Dose: 15,000 unit Heparin Sodium (Porcine) (Heparin) 5,000 units SC Q8 [facility] PRN Reason: Protocol Last Admin: 02/07/17 09:00 Dose: Not Given Cefepime HCl 1 gm/ Sodium (Chloride) 100 mls @ 100 mls/hr IVPB DAILY [facility] Last Admin: 02/15/17 08:33 Dose: 100 mls/hr Insulin Human Regular (Humulin R) 0 units SC ACHS [facility] PRN Reason: Protocol Last Admin: 02/16/17 12:16 Dose: Not Given Ondansetron HCl (Zofran Inj) 4 mg IVP Q6 PRN PRN Reason: Nausea/Vomiting Last Admin: 02/15/17 00:24 Dose: 4 mg Pantoprazole Sodium (Protonix Ec Tab) 40 mg PO DAILY [facility] Last Admin: 02/15/17 08:33 Dose: 40 mg Sevelamer HCl (Renagel) 2,400 mg PO TID [facility] Last Admin: 02/16/17 09:19 Dose: Not Given Sitagliptin Phosphate (Januvia) 25 mg PO DAILY [facility] Last Admin: 02/15/17 08:32 Dose: 25 mg Tramadol HCl (Ultram) 50 mg PO Q4 PRN PRN Reason: Pain, moderate (4-7) Last Admin: 02/16/17 04:16 Dose: 50 mg Vitamin B Complex/Vit C/Folic Acid (Nephro-Niko) 1 tab PO DAILY [facility] Last Admin: 02/15/17 08:32 Dose: 1 tab - Labs Labs: 02/16/17 03:50 02/16/17 03:50 PT 15.4 Seconds (9.8-13.1) H 02/16/17 03:50 INR 1.4 (0.9-1.2) H 02/16/17 03:50 APTT 28.6 Seconds (25.6-37.1) 02/13/17 04:00 - Respiratory Exam Respiratory Exam: Clear to Ausculation Bilateral - Cardiovascular Exam Cardiovascular Exam: REGULAR RHYTHM, +S1, +S2 - Extremities Exam Additional comments: RT FOOT WITH GANGRENOUS 2ND TOE Assessment and Plan - Assessment and Plan (Free Text) Assessment: PAD WITH GANGRENOUS 2ND RIGHT TOE CAD DIABETES MELLITUS HYPERTENSION HYPERLIPIDEMIA Plan: FOR OR TODAY FOR TOE AMPUTATION CONTINUE ANTIBIOTICS, ATORVASTATIN, JANUVIA
[2017-02-16] MEDS ORDERED: Iodoform 1/4inx15ft BOT EXT ONE (14:02)
[2017-02-16] MEDS ORDERED: HYDROmorphone 0.5 mg/0.5 ml ISec IVP PRN (14:20)
[2017-02-16] MEDS ORDERED: Sodium Chloride 0.9% 1,000 ML IV SCH (14:30)
--- NOTE | 2017-02-16 15:11 | PCM.SURG1 ---
Surgeon's Initial Post Op Note - Surgeon's Notes Surgeon: Dr. Lebron Technical Manager: Dr. Reuben Hoffmann Type of Anesthesia: IV Sedation, Local Pre-Operative Diagnosis: Right 2nd digit amputation Operative Findings: Materials: 4-0 Nylon, 1/4 inch packing Post-Operative Diagnosis: same Operation Performed: Right foot 2nd digit amputation Specimen/Specimens Removed: right 2nd toe Estimated Blood Loss: EBL {In ML}: 6 Blood Products Given: N/A Drains Used: No Drains Post-Op Condition: Good Date of Surgery/Procedure: 02/16/17 Time of Surgery/Procedure: 01:30
--- NOTE | 2017-02-16 15:16 | CP.PCM.PN ---
Subjective - Date & Time of Evaluation Date of Evaluation: 02/16/17 Time of Evaluation: 11:00 - Subjective Subjective: 76 year old male seen at bedside in ICU concerning necrotic wound to right hallux and gangrenous changes to right second digit. Patient is due for right 2nd digit amputation today with Dr. Lebron. Patient was explained of the podiatry plan in detail and fully understands and agrees with the plan. Patient denies of any overnight acute distress. Patient denies of any N/V/F/C or SOB today. NPO status was confirmed. Objective - Vital Signs/Intake and Output Vital Signs (last 24 hours): Temp Pulse Resp BP Pulse Ox 98 F 86 14 126/57 L 99 02/16/17 15:00 02/16/17 15:00 02/16/17 15:00 02/16/17 15:00 02/16/17 15:00 Intake and Output: 02/16/17 02/16/17 06:59 18:59 Intake Total 180 250 Output Total 0 Balance 180 250 - Medications Medications: Current Medications Acetaminophen (Tylenol 325mg Tab) 650 mg PO Q6 PRN PRN Reason: Pain, moderate (4-7) Aspirin (Ecotrin) 81 mg PO DAILY [facility] Last Admin: 02/07/17 09:00 Dose: Not Given Atorvastatin Calcium (Lipitor) 10 mg PO HS [facility] Last Admin: 02/15/17 21:06 Dose: 10 mg Epoetin Avery (Procrit) 15,000 unit IV MWF [facility] Last Admin: 02/15/17 21:04 Dose: 15,000 unit Heparin Sodium (Porcine) (Heparin) 5,000 units SC Q8 [facility] PRN Reason: Protocol Last Admin: 02/07/17 09:00 Dose: Not Given Hydromorphone HCl (Dilaudid) 0.5 mg IVP Q15M PRN PRN Reason: Pain, severe (8-10) Stop: 02/16/17 16:21 Cefepime HCl 1 gm/ Sodium (Chloride) 100 mls @ 100 mls/hr IVPB DAILY [facility] Last Admin: 02/15/17 08:33 Dose: 100 mls/hr Sodium Chloride (Sodium Chloride 0.9%) 1,000 mls @ 50 mls/hr IV .Q20H [facility] Insulin Human Regular (Humulin R) 0 units SC ACHS [facility] PRN Reason: Protocol Last Admin: 02/16/17 12:16 Dose: Not Given Ondansetron HCl (Zofran Inj) 4 mg IVP Q6 PRN PRN Reason: Nausea/Vomiting Last Admin: 02/15/17 00:24 Dose: 4 mg Pantoprazole Sodium (Protonix Ec Tab) 40 mg PO DAILY [facility] Last Admin: 02/15/17 08:33 Dose: 40 mg Sevelamer HCl (Renagel) 2,400 mg PO TID [facility] Last Admin: 02/16/17 09:19 Dose: Not Given Sitagliptin Phosphate (Januvia) 25 mg PO DAILY [facility] Last Admin: 02/15/17 08:32 Dose: 25 mg Tramadol HCl (Ultram) 50 mg PO Q4 PRN PRN Reason: Pain, moderate (4-7) Last Admin: 02/16/17 04:16 Dose: 50 mg Vitamin B Complex/Vit C/Folic Acid (Nephro-Niko) 1 tab PO DAILY [facility] Last Admin: 02/15/17 08:32 Dose: 1 tab - Labs Labs: 02/16/17 03:50 02/16/17 03:50 PT 15.4 Seconds (9.8-13.1) H 02/16/17 03:50 INR 1.4 (0.9-1.2) H 02/16/17 03:50 APTT 28.6 Seconds (25.6-37.1) 02/13/17 04:00 - Constitutional Appears: Well, Non-toxic, No Acute Distress - Extremities Exam Additional comments: DERM: No open wound is noted. Dry gangrenous skin change is noted to Right 2nd digit from distal end extending to level of MTPJ. No mal-odor is noted. No drainage is noted. No PTB Vasc: PT pulses lightly palpable on R, nonpalpable L. CFT <3 seconds to all digits b/l. Skin temp warm to cool from proximal to distal. Dry gangrenous changes noted to right second digit Neuro: Epicritc and protectice sensation grossly intact b/l - Neurological Exam Neurological Exam: Alert, Awake, Oriented x3 - Psychiatric Exam Psychiatric exam: Normal Affect, Normal Mood - Skin Skin Exam: Normal Color, Warm Assessment and Plan - Assessment and Plan (Free Text) Assessment: 76 year old male seen at bedside for R hallux necrotic wound and dry gangrene to right second digit secondary to DM and PAD Plan: Pt was seen and examined in ICU Pt NPO status was confirmed All Pre-op testing and clearance was in the chart Pt has exhausted all conservative treatment at this time and is opting for surgical intervention Pt was explained procedure and post-operative course All pt's questions were answered to satisfaction No guarantees were made Pt understands all risks, benefits and complications of procedure Pt will go to ICU after the surgery
[2017-02-16] MEDS: Pantoprazole 40 mg EC Tab PO SCH (16:18)
--- NOTE | 2017-02-16 16:41 | CP.PCM.PN ---
Subjective - Date & Time of Evaluation Date of Evaluation: 02/16/17 Time of Evaluation: 03:00 - Subjective Subjective: Alert Feels better No SOB Objective - Vital Signs/Intake and Output Vital Signs (last 24 hours): Temp Pulse Resp BP Pulse Ox 98.2 F 83 11 L 124/58 L 93 L 02/16/17 15:45 02/16/17 16:00 02/16/17 16:00 02/16/17 16:00 02/16/17 16:00 Intake and Output: 02/16/17 02/16/17 06:59 18:59 Intake Total 180 620 Output Total 0 Balance 180 620 - Medications Medications: Current Medications Acetaminophen (Tylenol 325mg Tab) 650 mg PO Q6 PRN PRN Reason: Pain, moderate (4-7) Aspirin (Ecotrin) 81 mg PO DAILY [facility] Last Admin: 02/07/17 09:00 Dose: Not Given Atorvastatin Calcium (Lipitor) 10 mg PO HS [facility] Last Admin: 02/15/17 21:06 Dose: 10 mg Epoetin Avery (Procrit) 15,000 unit IV MWF [facility] Last Admin: 02/15/17 21:04 Dose: 15,000 unit Heparin Sodium (Porcine) (Heparin) 5,000 units SC Q8 [facility] PRN Reason: Protocol Last Admin: 02/07/17 09:00 Dose: Not Given Cefepime HCl 1 gm/ Sodium (Chloride) 100 mls @ 100 mls/hr IVPB DAILY [facility] Last Admin: 02/15/17 08:33 Dose: 100 mls/hr Insulin Human Regular (Humulin R) 0 units SC ACHS [facility] PRN Reason: Protocol Last Admin: 02/16/17 16:19 Dose: 3 units Ondansetron HCl (Zofran Inj) 4 mg IVP Q6 PRN PRN Reason: Nausea/Vomiting Last Admin: 02/15/17 00:24 Dose: 4 mg Pantoprazole Sodium (Protonix Ec Tab) 40 mg PO DAILY [facility] Last Admin: 02/16/17 16:18 Dose: 40 mg Sevelamer HCl (Renagel) 2,400 mg PO TID [facility] Last Admin: 02/16/17 16:18 Dose: 2,400 mg Sitagliptin Phosphate (Januvia) 25 mg PO DAILY [facility] Last Admin: 02/16/17 16:18 Dose: Not Given Tramadol HCl (Ultram) 50 mg PO Q4 PRN PRN Reason: Pain, moderate (4-7) Last Admin: 02/16/17 04:16 Dose: 50 mg Vitamin B Complex/Vit C/Folic Acid (Nephro-Niko) 1 tab PO DAILY [facility] Last Admin: 02/15/17 08:32 Dose: 1 tab - Labs Labs: 02/16/17 03:50 02/16/17 03:50 PT 15.4 Seconds (9.8-13.1) H 02/16/17 03:50 INR 1.4 (0.9-1.2) H 02/16/17 03:50 APTT 28.6 Seconds (25.6-37.1) 02/13/17 04:00 - Respiratory Exam Additional comments: Lungs clear - Cardiovascular Exam Cardiovascular Exam: REGULAR RHYTHM - Extremities Exam Additional comments: No edema. Rt foot dressed Assessment and Plan - Assessment and Plan (Free Text) Assessment: ESRD S/P amputation of Rt 2nd toe CHF, CAD DM Plan: Scheduled for dialysis today Labs stable
[2017-02-16] MEDS: Cefepime 1 GM in Sodium Chloride 0.9% 100 ML IVPB SCH (22:27)
[2017-02-16] MEDS: Multivitamin Vitamin B Complex (Nephro-Vite) Tab PO SCH (22:29)
[2017-02-17 05:43] LABS: BASO # 0.1 K/uL (0.0-0.2); BASO % 0.4 % (0.0-2.0); EOS # 0.1 K/uL (0.0-0.7); EOS % 0.6 % (0.0-4.0); HEMATOCRIT 30.5 % (35.0-51.0); LYMPH % 5.7 % (20.0-40.0); MEAN CELL VOLUME 72.2 fl (80.0-94.0); MEAN CORPUSCULAR HEMOGLOBIN 21.2 pg (27.0-31.0); MEAN CORPUSCULAR HGB CONC 29.3 g/dL (33.0-37.0); MEAN PLATELET VOLUME 8.3 fl (7.2-11.7); MONO # 1.6 K/uL (0.0-0.8); MONO % 9.2 % (0.0-10.0); NEUT # 14.9 K/uL (1.8-7.0); NEUT % 84.1 % (50.0-75.0); NRBC % 0.4 % (0.0-0.0); PLATELET COUNT 264 K/uL (130-400); RED CELL DISTRIBUTION WIDTH 20.2 % (11.5-14.5); WHITE BLOOD COUNT 17.7 K/uL (4.8-10.8)
[2017-02-17 05:57] LABS: CALCIUM 9.1 mg/dL (8.4-10.2); POTASSIUM 4.5 MMOL/L (3.6-5.0)
[2017-02-17] MEDS: Insulin Regular 100 units/ml SC SCH ×4 (06:37→21:51)
[2017-02-17] MEDS: Cefepime 1 GM in Sodium Chloride 0.9% 100 ML IVPB SCH (08:04)
[2017-02-17] MEDS: Pantoprazole 40 mg EC Tab PO SCH (08:16)
[2017-02-17] MEDS: Multivitamin Vitamin B Complex (Nephro-Vite) Tab PO SCH (08:16)
[2017-02-17 10:26] LABS: EOSINOPHIL 1 % (0-7); NEUTROPHIL 85 % (42-75); TOTAL CELLS COUNTED 100
--- NOTE | 2017-02-17 11:45 | CP.PCM.PN ---
Subjective - Date & Time of Evaluation Date of Evaluation: 02/17/17 Time of Evaluation: 11:00 - Subjective Subjective: 76 year old male patient 1 day s/p right 2nd digit amputation today with Dr. Lebron. Patient denies of any overnight acute distress. Dressing to right lower extremity appears cdi. Patient's family was present at the time of visit. Patient states that he has mild pain to the surgical area but tolerable. Patient denies of any N/V/F/C or SOB today. Objective - Vital Signs/Intake and Output Vital Signs (last 24 hours): Temp Pulse Resp BP Pulse Ox 98.5 F 92 H 11 L 129/58 L 94 L 02/17/17 08:00 02/17/17 10:00 02/17/17 10:00 02/17/17 10:00 02/17/17 10:00 Intake and Output: 02/17/17 02/17/17 06:59 18:59 Intake Total 100 100 Balance 100 100 - Medications Medications: Current Medications Acetaminophen (Tylenol 325mg Tab) 650 mg PO Q6 PRN PRN Reason: Pain, moderate (4-7) Aspirin (Ecotrin) 81 mg PO DAILY [facility] Last Admin: 02/07/17 09:00 Dose: Not Given Atorvastatin Calcium (Lipitor) 10 mg PO HS [facility] Last Admin: 02/16/17 22:34 Dose: 10 mg Docusate Sodium (Colace) 100 mg PO BID [facility] Epoetin Avery (Procrit) 15,000 unit IV MWF [facility] Last Admin: 02/15/17 21:04 Dose: 15,000 unit Heparin Sodium (Porcine) (Heparin) 5,000 units SC Q8 [facility] PRN Reason: Protocol Last Admin: 02/07/17 09:00 Dose: Not Given Hydromorphone HCl (Dilaudid) 1 mg IVP Q4H PRN PRN Reason: Pain, severe (8-10) Hydromorphone HCl (Dilaudid) 0.5 mg IVP Q4H PRN PRN Reason: Pain, severe (8-10) Cefepime HCl 1 gm/ Sodium (Chloride) 100 mls @ 100 mls/hr IVPB DAILY [facility] Last Admin: 02/17/17 08:04 Dose: 100 mls/hr Insulin Human Regular (Humulin R) 0 units SC ACHS [facility] PRN Reason: Protocol Last Admin: 02/17/17 06:37 Dose: 3 units Ondansetron HCl (Zofran Inj) 4 mg IVP Q6 PRN PRN Reason: Nausea/Vomiting Last Admin: 02/15/17 00:24 Dose: 4 mg Pantoprazole Sodium (Protonix Ec Tab) 40 mg PO DAILY [facility] Last Admin: 02/17/17 08:16 Dose: 40 mg Sevelamer HCl (Renagel) 2,400 mg PO TID [facility] Last Admin: 02/17/17 08:16 Dose: 2,400 mg Sitagliptin Phosphate (Januvia) 25 mg PO DAILY [facility] Last Admin: 02/17/17 08:16 Dose: 25 mg Tramadol HCl (Ultram) 50 mg PO Q4 PRN PRN Reason: Pain, moderate (4-7) Last Admin: 02/17/17 06:36 Dose: 50 mg Vitamin B Complex/Vit C/Folic Acid (Nephro-Niko) 1 tab PO DAILY [facility] Last Admin: 02/17/17 08:16 Dose: 1 tab - Labs Labs: 02/17/17 05:00 02/17/17 05:00 PT 15.4 Seconds (9.8-13.1) H 02/16/17 03:50 INR 1.4 (0.9-1.2) H 02/16/17 03:50 APTT 28.6 Seconds (25.6-37.1) 02/13/17 04:00 - Constitutional Appears: Well, Non-toxic, No Acute Distress - Extremities Exam Additional comments: DERM: Surgical site appears well coapted with all sutures intact. Packing still intact. No maceration of the wound edges noted. No drainage noted. No pus, no erythema is noted. no mal-odor is noted. Vasc: PT pulses lightly palpable on R, nonpalpable L. CFT <3 seconds to all digits b/l. Skin temp warm to cool from proximal to distal. Dry gangrenous changes noted to right second digit Neuro: Epicritc and protectice sensation grossly intact b/l - Neurological Exam Neurological Exam: Awake, Oriented x3 - Psychiatric Exam Psychiatric exam: Normal Affect, Normal Mood - Skin Skin Exam: Normal Color, Warm Assessment and Plan - Assessment and Plan (Free Text) Assessment: 76 year old male patient 1 day s/p right 2nd digit amputation Plan: Pt was seen and examined at bedside labs and vitals reviewed discussed in detail with Dr. Lebron continue IV Abx Non-weight bearing to right foot Dressing changed with miguel, GIRISH and BARI Podiatry will continue to follow in-house
--- NOTE | 2017-02-17 12:15 | CP.PCM.PN ---
Subjective - Date & Time of Evaluation Date of Evaluation: 02/17/17 Time of Evaluation: 10:15 - Subjective Subjective: NO CHEST PAIN OR SOB Objective - Vital Signs/Intake and Output Vital Signs (last 24 hours): Temp Pulse Resp BP Pulse Ox 98.5 F 92 H 11 L 129/58 L 94 L 02/17/17 08:00 02/17/17 10:00 02/17/17 10:00 02/17/17 10:00 02/17/17 10:00 Intake and Output: 02/17/17 02/17/17 06:59 18:59 Intake Total 100 100 Balance 100 100 - Medications Medications: Current Medications Acetaminophen (Tylenol 325mg Tab) 650 mg PO Q6 PRN PRN Reason: Pain, moderate (4-7) Aspirin (Ecotrin) 81 mg PO DAILY [facility] Last Admin: 02/07/17 09:00 Dose: Not Given Atorvastatin Calcium (Lipitor) 10 mg PO HS [facility] Last Admin: 02/16/17 22:34 Dose: 10 mg Docusate Sodium (Colace) 100 mg PO BID [facility] Epoetin Avery (Procrit) 15,000 unit IV MWF [facility] Last Admin: 02/15/17 21:04 Dose: 15,000 unit Heparin Sodium (Porcine) (Heparin) 5,000 units SC Q8 [facility] PRN Reason: Protocol Last Admin: 02/07/17 09:00 Dose: Not Given Hydromorphone HCl (Dilaudid) 1 mg IVP Q4H PRN PRN Reason: Pain, severe (8-10) Hydromorphone HCl (Dilaudid) 0.5 mg IVP Q4H PRN PRN Reason: Pain, severe (8-10) Cefepime HCl 1 gm/ Sodium (Chloride) 100 mls @ 100 mls/hr IVPB DAILY [facility] Last Admin: 02/17/17 08:04 Dose: 100 mls/hr Insulin Human Regular (Humulin R) 0 units SC ACHS [facility] PRN Reason: Protocol Last Admin: 02/17/17 06:37 Dose: 3 units Ondansetron HCl (Zofran Inj) 4 mg IVP Q6 PRN PRN Reason: Nausea/Vomiting Last Admin: 02/15/17 00:24 Dose: 4 mg Pantoprazole Sodium (Protonix Ec Tab) 40 mg PO DAILY [facility] Last Admin: 02/17/17 08:16 Dose: 40 mg Sevelamer HCl (Renagel) 2,400 mg PO TID [facility] Last Admin: 02/17/17 08:16 Dose: 2,400 mg Sitagliptin Phosphate (Januvia) 25 mg PO DAILY [facility] Last Admin: 02/17/17 08:16 Dose: 25 mg Tramadol HCl (Ultram) 50 mg PO Q4 PRN PRN Reason: Pain, moderate (4-7) Last Admin: 02/17/17 06:36 Dose: 50 mg Vitamin B Complex/Vit C/Folic Acid (Nephro-Niko) 1 tab PO DAILY [facility] Last Admin: 02/17/17 08:16 Dose: 1 tab - Labs Labs: 02/17/17 05:00 02/17/17 05:00 PT 15.4 Seconds (9.8-13.1) H 02/16/17 03:50 INR 1.4 (0.9-1.2) H 02/16/17 03:50 APTT 28.6 Seconds (25.6-37.1) 02/13/17 04:00 - Respiratory Exam Respiratory Exam: Decreased Breath Sounds - Cardiovascular Exam Cardiovascular Exam: REGULAR RHYTHM, +S1, +S2 - Extremities Exam Additional comments: RIGHT FOOT WITH SURGICAL DRESSINGS - Additional Findings Additional findings: DOOR PERSON WITH ATRIAL SENSED, VENTRICULAR PACED RHYTHM PODIATRY SURGICAL NOTES REVIEWED WITH AMPUTATION OR 2ND RIGHT TOE Assessment and Plan - Assessment and Plan (Free Text) Assessment: CAD PAD WITH GANGRENE AND AMPUTATION OF 2ND RIGHT TOE DM CRF ON HD Plan: CONTINUE ASPIRIN 81 MGS DAILY, ATORVASTATIN, JANUVIA, ANTIBIOTICS WILL RESUME HEPARIN AND CLOPIDOGREL( FOR BOTH CAD AND PAD WITH RECENT REVASCULARIZATION) TOMORROW IF THERE ISN'T ANY BLEEDING FROM SURGICAL SITE WILL RESUME COREG TOMORROW IF BP IS STABLE(STOPPED FOR SEPSIS ANS HYPOTENSION LAST WEEK) OK TO TRANSFER TO MED/SURG FLOOR
--- NOTE | 2017-02-17 13:19 | CP.PCM.PN ---
Subjective - Date & Time of Evaluation Date of Evaluation: 02/17/17 Time of Evaluation: 07:00 - Subjective Subjective: wbc up to 18k afeb s/p amp great toe iv rx in progress Objective - Vital Signs/Intake and Output Vital Signs (last 24 hours): Temp Pulse Resp BP Pulse Ox 98 F 92 H 12 116/57 L 100 02/17/17 12:00 02/17/17 12:00 02/17/17 12:00 02/17/17 12:00 02/17/17 12:00 Intake and Output: 02/17/17 02/17/17 06:59 18:59 Intake Total 100 100 Balance 100 100 - Medications Medications: Current Medications Acetaminophen (Tylenol 325mg Tab) 650 mg PO Q6 PRN PRN Reason: Pain, moderate (4-7) Aspirin (Ecotrin) 81 mg PO DAILY [facility] Atorvastatin Calcium (Lipitor) 10 mg PO HS [facility] Last Admin: 02/16/17 22:34 Dose: 10 mg Docusate Sodium (Colace) 100 mg PO BID [facility] Last Admin: 02/17/17 12:29 Dose: 100 mg Epoetin Avery (Procrit) 15,000 unit IV MWF [facility] Last Admin: 02/15/17 21:04 Dose: 15,000 unit Hydromorphone HCl (Dilaudid) 1 mg IVP Q4H PRN PRN Reason: Pain, severe (8-10) Hydromorphone HCl (Dilaudid) 0.5 mg IVP Q4H PRN PRN Reason: Pain, severe (8-10) Cefepime HCl 1 gm/ Sodium (Chloride) 100 mls @ 100 mls/hr IVPB DAILY [facility] Last Admin: 02/17/17 08:04 Dose: 100 mls/hr Insulin Human Regular (Humulin R) 0 units SC ACHS [facility] PRN Reason: Protocol Last Admin: 02/17/17 12:31 Dose: 5 units Ondansetron HCl (Zofran Inj) 4 mg IVP Q6 PRN PRN Reason: Nausea/Vomiting Last Admin: 02/15/17 00:24 Dose: 4 mg Pantoprazole Sodium (Protonix Ec Tab) 40 mg PO DAILY [facility] Last Admin: 02/17/17 08:16 Dose: 40 mg Sevelamer HCl (Renagel) 2,400 mg PO TID [facility] Last Admin: 02/17/17 12:29 Dose: 2,400 mg Sitagliptin Phosphate (Januvia) 25 mg PO DAILY [facility] Last Admin: 02/17/17 08:16 Dose: 25 mg Tramadol HCl (Ultram) 50 mg PO Q4 PRN PRN Reason: Pain, moderate (4-7) Last Admin: 02/17/17 12:29 Dose: 50 mg Vitamin B Complex/Vit C/Folic Acid (Nephro-Niko) 1 tab PO DAILY [facility] Last Admin: 02/17/17 08:16 Dose: 1 tab - Labs Labs: 02/17/17 05:00 02/17/17 05:00 PT 15.4 Seconds (9.8-13.1) H 02/16/17 03:50 INR 1.4 (0.9-1.2) H 02/16/17 03:50 APTT 28.6 Seconds (25.6-37.1) 02/13/17 04:00 - Constitutional Appears: Non-toxic, Chronically Ill - Head Exam Head Exam: NORMOCEPHALIC - Eye Exam Eye Exam: absent: Scleral icterus - ENT Exam ENT Exam: Mucous Membranes Dry - Neck Exam Neck Exam: absent: Lymphadenopathy - Respiratory Exam Respiratory Exam: Decreased Breath Sounds - Cardiovascular Exam Cardiovascular Exam: REGULAR RHYTHM - GI/Abdominal Exam GI & Abdominal Exam: Distended, Soft - Rectal Exam Rectal Exam: Deferred - Exam Exam: NORMAL INSPECTION - Extremities Exam Extremities Exam: Pedal Edema. absent: Calf Tenderness - Back Exam Back Exam: absent: CVA tenderness (L), CVA tenderness (R) Assessment and Plan (1) Ulcer of foot Status: Chronic (2) ESRD (end stage renal disease) Status: Acute (3) CHF (congestive heart failure) Status: Chronic (4) Diabetes Status: Chronic - Assessment and Plan (Free Text) Assessment: cont cefepime reculture for fever wound care eval cont HD
--- NOTE | 2017-02-17 13:19 | CP.PCM.PN ---
Subjective - Date & Time of Evaluation Date of Evaluation: 02/17/17 Time of Evaluation: 01:00 - Subjective Subjective: C/o pain In Rt foot No c/o SOB Objective - Vital Signs/Intake and Output Vital Signs (last 24 hours): Temp Pulse Resp BP Pulse Ox 98 F 92 H 12 116/57 L 100 02/17/17 12:00 02/17/17 12:00 02/17/17 12:00 02/17/17 12:00 02/17/17 12:00 Intake and Output: 02/17/17 02/17/17 06:59 18:59 Intake Total 100 100 Balance 100 100 - Medications Medications: Current Medications Acetaminophen (Tylenol 325mg Tab) 650 mg PO Q6 PRN PRN Reason: Pain, moderate (4-7) Aspirin (Ecotrin) 81 mg PO DAILY [facility] Atorvastatin Calcium (Lipitor) 10 mg PO HS [facility] Last Admin: 02/16/17 22:34 Dose: 10 mg Docusate Sodium (Colace) 100 mg PO BID [facility] Last Admin: 02/17/17 12:29 Dose: 100 mg Epoetin Avery (Procrit) 15,000 unit IV MWF [facility] Last Admin: 02/15/17 21:04 Dose: 15,000 unit Hydromorphone HCl (Dilaudid) 1 mg IVP Q4H PRN PRN Reason: Pain, severe (8-10) Hydromorphone HCl (Dilaudid) 0.5 mg IVP Q4H PRN PRN Reason: Pain, severe (8-10) Cefepime HCl 1 gm/ Sodium (Chloride) 100 mls @ 100 mls/hr IVPB DAILY [facility] Last Admin: 02/17/17 08:04 Dose: 100 mls/hr Insulin Human Regular (Humulin R) 0 units SC ACHS [facility] PRN Reason: Protocol Last Admin: 02/17/17 12:31 Dose: 5 units Ondansetron HCl (Zofran Inj) 4 mg IVP Q6 PRN PRN Reason: Nausea/Vomiting Last Admin: 02/15/17 00:24 Dose: 4 mg Pantoprazole Sodium (Protonix Ec Tab) 40 mg PO DAILY [facility] Last Admin: 02/17/17 08:16 Dose: 40 mg Sevelamer HCl (Renagel) 2,400 mg PO TID [facility] Last Admin: 02/17/17 12:29 Dose: 2,400 mg Sitagliptin Phosphate (Januvia) 25 mg PO DAILY [facility] Last Admin: 02/17/17 08:16 Dose: 25 mg Tramadol HCl (Ultram) 50 mg PO Q4 PRN PRN Reason: Pain, moderate (4-7) Last Admin: 02/17/17 12:29 Dose: 50 mg Vitamin B Complex/Vit C/Folic Acid (Nephro-Niko) 1 tab PO DAILY [facility] Last Admin: 02/17/17 08:16 Dose: 1 tab - Labs Labs: 02/17/17 05:00 02/17/17 05:00 PT 15.4 Seconds (9.8-13.1) H 02/16/17 03:50 INR 1.4 (0.9-1.2) H 02/16/17 03:50 APTT 28.6 Seconds (25.6-37.1) 02/13/17 04:00 - Respiratory Exam Additional comments: Lungs clear - Cardiovascular Exam Cardiovascular Exam: REGULAR RHYTHM - Extremities Exam Additional comments: No edema. Rt foot dressed. Dressing C&D Assessment and Plan - Assessment and Plan (Free Text) Assessment: ESRD S/P Rt 2nd toe amputation CHF, CAD DM Plan: Labs stable Continue HD MWF
[2017-02-17] MEDS ORDERED: HYDROmorphone 0.5 mg/0.5 ml ISec IVP STA (13:25)
--- NOTE | 2017-02-17 17:53 | OP ---
PROCEDURE DATE: 02/16/2017 SURGEON: Dr. Leonel Lebron. [employer] ED[employer] PAINTER: Dr. Lillian Hoffmann. [employer] OPERATOR: Dr. Helton. ANESTHESIA: IV sedation with local. PREOPERATIVE DIAGNOSIS: Right second digit gangrene. POSTOPERATIVE DIAGNOSIS: Right second digit gangrene. PROCEDURE PERFORMED: Right foot second digit amputation. INDICATIONS: The patient is a 76-year-old male with the above diagnosis. The patient has exhausted all conservative treatment at this time and now requests surgical intervention. The patient signed t he consent after careful explanation of risks, benefits, complications and alternatives for surgical procedure. No guarantees were given nor implied. PREPARATION: The patient was brought into the operating room and placed on the operating room table in a supine position. Time-out was performed for identification of the correct patient and procedure . After induction of IV sedation, the patient received a total of 14 mL of 1:1 mixture of 1% lidocai ne plain and 0.5% Marcaine plain in a local block type fashion to the right foot. Once local anesthe luis alfredo was achieved, the right foot and ankle was then prepped and draped in normal sterile manner. No tourniquet was used during the procedure. DESCRIPTION OF PROCEDURE: The attention was drawn to the right second digit where a racket-shaped in cision was made circumferentially at the level of the second metatarsophalangeal joint using a #15 bl alli. The incision was then extended down through the subcutaneous layers down to the level of the vee ne. Using a bone clamp to stabilize the toe, the second digit was then disarticulated from the foot at the level of the second metatarsophalangeal joint. This specimen was then passed from the operati ve field and sent to pathology. Using a fresh #15 blade, all necrotic and nonviable tissue was then excisionally debrided from the surgical site. The surgical site was then copiously flushed with norm al sterile saline. At this time, a quarter inch packing strip was inserted into the wound with both ends of the strip out proximally and distally from the surgical opening. Next, the skin layers were then reapproximated and coapted using #4-0 nylon using a simple suture technique. Both ends of the p acking strip was pulled back and forth every time a suture was put on to make sure the suture did not go through the packing strip. The right foot was then dressed with Adaptic, 4 x 4 gauze, Kerlix, an d Mesfin bandage with no compression. Immediate capillary refill time was noted to the surgical site an d remaining digits. POSTOPERATIVE CONDITION: The patient tolerated the anesthesia well and procedure well and was escort ed to the recovery room with vital signs stable and neurovascular status intact to the right foot. T he patient is back to the floor for IV antibiotic treatment. LILLIAN HOFFMANN DPM Leonel Lebron DPM cc: [id number] TT: 02/17/2017 17:52:18 radha
--- NOTE | 2017-02-18 08:13 | PN ---
DATE: 02/17/2017 The patient in ICU, bed 421. TIME SPENT: 35 minutes. The patient is seen and evaluated at the bedside. Events since admission reviewed. PAST MEDICAL, SURGICAL, AND SOCIAL HISTORY: Noted. A 76-year-old male, a former smoker, with a history significant for diabetes mellitus, type 2, and hypertension, hyperlipidemia, coronary artery disease, and congestive heart failure, status post coronary artery bypass graft surgery, and atrial fibrillation, and end-stage renal disease, on hemodialysis. Admitted with pain on right foot. Noted to have an ischemic right 2nd toe, status post revascularization attempt, with improved flow to the right foot, now status post amputation of right 2nd toe, postoperative day 1. Overnight, afebrile . Status post hemodialysis. Telemetry: Atrial fibrillation. This morning, alert, awake, follows commands, appropriate. Feels better, less pain on the right foot. Had a bowel movement. Denies chest pain, palpitation, shortness of breath. OBJECTIVE VITAL SIGNS: Temperature 98.5, heart rate 92, blood pressure 116/57, pulse oximetry 100% on oxygen 2 liters nasal cannula. Intake 720, output 0, [id number]. Weight 152 pounds. HEAD, EYES, EARS, NOSE AND THROAT: Atraumatic, normocephalic. NECK: Supple. Trachea central. CHEST: Bilateral breath sounds. Clear to auscultation. HEART: Rhythm regular. S1 and S2 normal. ABDOMEN: Bowel sounds present. Soft. No tenderness. EXTREMITIES: status post amputation [id number] toe. First with ulcerations and gangrenous changes. Right foot warm to touch. NEUROLOGICAL: Nonfocal. CURRENT MEDICATIONS: Tylenol 650 q. 6 p.r.n., aspirin 81 mg daily, Lipitor 10 mg at night, cefepime 1 gram IV daily, Colace 100 mg b.i.d., Procrit 15,000 units 3 times a week, Dilaudid 1 mg IV q. 4 p.r.n., Accu-Chek with regular insulin coverage, Protonix 40 p.o. daily_ 2400 mg 3 times daily, Januvia 25 mg daily. LABORATORY DATA: WBC 17.7, hemoglobin 8.9, hematocrit 30.5, MCV 72.2, platelet count at 264. PT 15.4, INR 1.4. SMA-7: Sodium 138, potassium 4.5, chloride of 95, CO2 of 28, blood urea nitrogen 23, creatinine 3.9. Random glucose 270. Vancomycin trough level 33.8. Serology: Hepatitis B surface antigen negative. Hepatitis B core antibody negative. Hepatitis C antibody negative. MICROBIOLOGY: Wound culture: Serratia marcescens _ bacteria species. IMPRESSION 1. Musculoskeletal: Status post amputation right 2nd digit, postoperative day 2. Pain improved after amputation, status post revascularization, day 2. 2. Infectious disease (ID): Gangrenous foot, right 2nd toe, status post amputation. On antibiotics, cefepime 1 gram IV daily. Peripheral vascular disease bilaterally, status post a revascularization, right foot. 3. Cardiac: History of congestive heart failure, atrial fibrillation, and coronary artery disease, status post coronary artery bypass graft surgery, to resume on Coreg tomorrow if blood pressure is stable and to resume heparin and the Plavix from tomorrow, as per cardiology recommendations for coronary artery disease and peripheral arterial disease. 4. Pulmonary: Pleural effusion, right, stable. 5. Gastrointestinal (GI): Tolerating p.o. feeds. 6. Endocrine: Diabetes mellitus, type 2, on 1800 diabetic calorie-restricted renal diet. On Januvia and Accu-Chek with regular insulin coverage. 7. Renal: End-stage renal disease, on hemodialysis. Status post dialysis yesterday; dialysis due tomorrow. Appreciate a renal followup. 8. Hematology: Anemia of chronic disease, hemoglobin stable, on Procrit 15, 000 units 3 times a week with dialysis. 9. Hyperlipidemia, on Lipitor, 10 mg at night. 10. Deep venous thrombosis (DVT) prophylaxis. Anticoagulation on hold for the procedure. Will resume Lovenox from tomorrow if there is no further bleeding noted from the site of wound. Addy Corley MD cc: [id number] TT: 02/17/2017 14:54:24 Confirmation # [id number] Dictation # [id number] fn MTDD
--- NOTE | 2017-02-18 08:19 | PN ---
DATE: 02/16/2017 The patient in ICU, , bed 421. The patient is seen and evaluated at the bedside. Events since admission reviewed. A 76-year-old ma le with diabetes, coronary artery disease status post coronary artery bypass graft surgery, periphera l vascular disease, end-stage renal disease on hemodialysis, admitted with respiratory insufficiency and right large pleural effusion, sepsis with right foot ulcer. Overnight status post right angiopla sty with revascularization remained normotensive. Afebrile. Status post dialysis yesterday. Today underwent amputation of right second toe under IV sedation and local anesthesia, uneventful. E stimated blood loss about 6 ____. Remains alert and awake, follows commands. Appropriate. No distr ess noted. Denies headache, shortness of breath and chest pain. No palpitation, no abdominal pain, no diarrhea and no dysuria. PHYSICAL EXAMINATION: VITAL SIGNS: Temperature 98.2, heart rate 84, blood pressure 116/55, respiratory rate 12 and saturat ing 92%. Intake 640, output 0 with positive ____ 640. Weight 153 pounds. HEAD, EYES, EARS, NOSE AND THROAT: Nontoxic. Head atraumatic and normocephalic. Pupils are equal an d reactive. Conjunctivae pale. Sclerae white. NECK: Supple. Trachea central. CHEST: Bilateral breath sounds. Reduced breath sounds on the right. HEART: Rhythm regular. S1, S2 normal. No audible murmur. ABDOMEN: Soft. Bowel sounds present. EXTREMITIES: Second toe, right foot with bluish discoloration, status post amputation of the second toe with dressing intact. No noted. NEUROLOGIC: Oriented to name, place and time with a normal affect. SKIN: Dry. Normal color. LABORATORY DATA: WBC 13.9, hemoglobin 9.2, hematocrit 31.3 and platelet count 261. PT 15.4. INR 1. 4. ABG: pH 7.31, pCO2 51, pO2 50, saturation 85.3 on FIO2 40, currently on 2 liters and saturating 93%. SMA-7: Sodium 137, potassium 4.6, chloride 95, CO2 27, blood urea nitrogen 29 and creatinine 4 .9. Random glucose 251 with calcium 9.3. CURRENT MEDICATIONS: Tylenol 650 q. 6 p.r.n., Ecotrin 81 mg daily, Lipitor 10 mg daily, cefepime 1 g jose daily, Procrit 10,000 units IV 3 times a week, heparin 5000 units subcu q. 8, Dilaudid 0.5 mg IV q. 15 minutes p.r.n., Accu-Chek with regular insulin coverage, Zofran 4 mg IV push q. 6 p.r.n., Lissa nix 40 p.o. daily, Renagel 24 mg p.o. 3 times a day, Januvia 25 mg daily, Ultram 50 mg q. 4 hours p.r .n. and Nephro-Niko 1 tablet daily. IMPRESSION: Ischemic right foot with gangrene of the right second toe, status post amputation under local and int ravenous sedation, tolerated well. Continue local wound care. ____ followup. Peripheral arterial disease. End-stage renal disease on hemodialysis, status post dialysis yesterday, next dialysis due on Saturday. Congestive heart failure, clinically stable. Large right pleural effusion, stable. Diabetes mellitus type 2, on a diabetic diet, insulin and Januvia. Ischemic cardiomyopathy. Closely monitor hemodynamic status and respiratory status, remains clinical ly stable and can be transferred to telemetry floor. Addy Corley MD cc: [id number] TT: 02/16/2017 17:22:59 Confirmation # [id number] Dictation # [id number] sn
--- NOTE | 2017-02-18 08:51 | CP.PCM.PN ---
Subjective - Date & Time of Evaluation Date of Evaluation: 02/18/17 Time of Evaluation: 07:00 - Subjective Subjective: 76 year old male patient 2 days s/p right 2nd digit amp. Pt seen with Dr. Lebron present. Denies any pain or discomfort to the foot at this time. Denies f /n/v/c/sob/cp. Nursing denies any acute overnight. Objective - Vital Signs/Intake and Output Vital Signs (last 24 hours): Temp Pulse Resp BP Pulse Ox 98.0 F 99 H 18 153/77 H 96 02/18/17 07:38 02/18/17 07:38 02/18/17 07:38 02/18/17 07:38 02/18/17 07:38 - Medications Medications: Current Medications Acetaminophen (Tylenol 325mg Tab) 650 mg PO Q6 PRN PRN Reason: Pain, moderate (4-7) Aspirin (Ecotrin) 81 mg PO DAILY [facility] Last Admin: 02/17/17 13:41 Dose: 81 mg Atorvastatin Calcium (Lipitor) 10 mg PO HS [facility] Last Admin: 02/17/17 21:52 Dose: 10 mg Docusate Sodium (Colace) 100 mg PO BID [facility] Last Admin: 02/17/17 12:29 Dose: 100 mg Epoetin Avery (Procrit) 15,000 unit IV MWF [facility] Last Admin: 02/15/17 21:04 Dose: 15,000 unit Hydromorphone HCl (Dilaudid) 1 mg IVP Q4H PRN PRN Reason: Pain, severe (8-10) Hydromorphone HCl (Dilaudid) 0.5 mg IVP Q4H PRN PRN Reason: Pain, severe (8-10) Cefepime HCl 1 gm/ Sodium (Chloride) 100 mls @ 100 mls/hr IVPB DAILY [facility] Last Admin: 02/17/17 08:04 Dose: 100 mls/hr Insulin Human Regular (Humulin R) 0 units SC ACHS [facility] PRN Reason: Protocol Last Admin: 02/17/17 21:51 Dose: Not Given Ondansetron HCl (Zofran Inj) 4 mg IVP Q6 PRN PRN Reason: Nausea/Vomiting Last Admin: 02/15/17 00:24 Dose: 4 mg Pantoprazole Sodium (Protonix Ec Tab) 40 mg PO DAILY [facility] Last Admin: 02/17/17 08:16 Dose: 40 mg Sevelamer HCl (Renagel) 2,400 mg PO TID [facility] Last Admin: 02/17/17 16:57 Dose: 2,400 mg Sitagliptin Phosphate (Januvia) 25 mg PO DAILY [facility] Last Admin: 02/17/17 08:16 Dose: 25 mg Vitamin B Complex/Vit C/Folic Acid (Nephro-Niko) 1 tab PO DAILY [facility] Last Admin: 02/17/17 08:16 Dose: 1 tab - Labs Labs: 02/17/17 05:00 02/17/17 05:00 PT 15.4 Seconds (9.8-13.1) H 02/16/17 03:50 INR 1.4 (0.9-1.2) H 02/16/17 03:50 APTT 28.6 Seconds (25.6-37.1) 02/13/17 04:00 - Constitutional Appears: Non-toxic, No Acute Distress - Extremities Exam Additional comments: DERM: Surgical site appears well coapted with all sutures intact. Packing still intact. No maceration of the wound edges noted. No drainage noted. No pus, no erythema is noted. no mal-odor is noted. Vasc: PT pulses lightly palpable on R, nonpalpable L. CFT <3 seconds to all digits b/l. Skin temp warm to cool from proximal to distal. Dry gangrenous changes noted to right second digit Neuro: Epicritc and protectice sensation grossly intact b/l - Neurological Exam Neurological Exam: Alert, Awake - Psychiatric Exam Psychiatric exam: Normal Affect, Normal Mood Assessment and Plan - Assessment and Plan (Free Text) Assessment: 76 year old male patient 2 days s/p right 2nd digit amputation Plan: Pt S&E at bedside with attending Dr. Lebron present Chart, labs and vitals reviewed Packing pulled from incision site today, remaining sutures tied. Dressing reapplied consisting of betadine soaked gauze, DSD and lightly wrapped BARI. c/w NWB to the right foot PT to see and evaluate Stable per podiatry Will continue to follow
[2017-02-18] MEDS: Pantoprazole 40 mg EC Tab PO SCH (09:45)
[2017-02-18] MEDS: Multivitamin Vitamin B Complex (Nephro-Vite) Tab PO SCH (09:45)
[2017-02-18] MEDS: Insulin Regular 100 units/ml SC SCH ×4 (09:47→22:20)
[2017-02-18] MEDS ORDERED: Epoetin Alfa 20000 UNIT/ML (RENAL DOSE) IV SCH (11:02)
--- NOTE | 2017-02-18 11:05 | CP.PCM.PN ---
Subjective - Date & Time of Evaluation Date of Evaluation: 02/18/17 Time of Evaluation: 11:03 - Subjective Subjective: Patient is out of bed sitting in the chair Appeared to be more comfortable No chest pain no shortness of breath Patient complaining of constipation Objective - Vital Signs/Intake and Output Vital Signs (last 24 hours): Temp Pulse Resp BP Pulse Ox 98.0 F 99 H 18 153/77 H 96 02/18/17 07:38 02/18/17 07:38 02/18/17 07:38 02/18/17 07:38 02/18/17 07:38 - Medications Medications: Current Medications Acetaminophen (Tylenol 325mg Tab) 650 mg PO Q6 PRN PRN Reason: Pain, moderate (4-7) Aspirin (Ecotrin) 81 mg PO DAILY [facility] Last Admin: 02/18/17 09:45 Dose: 81 mg Atorvastatin Calcium (Lipitor) 10 mg PO HS [facility] Last Admin: 02/17/17 21:52 Dose: 10 mg Docusate Sodium (Colace) 100 mg PO BID [facility] Last Admin: 02/18/17 09:45 Dose: 100 mg Hydromorphone HCl (Dilaudid) 1 mg IVP Q4H PRN PRN Reason: Pain, severe (8-10) Hydromorphone HCl (Dilaudid) 0.5 mg IVP Q4H PRN PRN Reason: Pain, severe (8-10) Cefepime HCl 1 gm/ Sodium (Chloride) 100 mls @ 100 mls/hr IVPB DAILY [facility] Last Admin: 02/17/17 08:04 Dose: 100 mls/hr Insulin Human Regular (Humulin R) 0 units SC ACHS [facility] PRN Reason: Protocol Last Admin: 02/18/17 09:47 Dose: 3 units Ondansetron HCl (Zofran Inj) 4 mg IVP Q6 PRN PRN Reason: Nausea/Vomiting Last Admin: 02/15/17 00:24 Dose: 4 mg Pantoprazole Sodium (Protonix Ec Tab) 40 mg PO DAILY [facility] Last Admin: 02/18/17 09:45 Dose: 40 mg Sevelamer HCl (Renagel) 2,400 mg PO TID [facility] Last Admin: 02/18/17 09:44 Dose: 2,400 mg Sitagliptin Phosphate (Januvia) 25 mg PO DAILY [facility] Last Admin: 02/18/17 09:45 Dose: 25 mg Vitamin B Complex/Vit C/Folic Acid (Nephro-Niko) 1 tab PO DAILY [facility] Last Admin: 02/18/17 09:45 Dose: 1 tab - Labs Labs: 02/17/17 05:00 02/17/17 05:00 PT 15.4 Seconds (9.8-13.1) H 02/16/17 03:50 INR 1.4 (0.9-1.2) H 02/16/17 03:50 APTT 28.6 Seconds (25.6-37.1) 02/13/17 04:00 - Constitutional Appears: No Acute Distress - ENT Exam ENT Exam: Mucous Membranes Moist - Respiratory Exam Respiratory Exam: NORMAL BREATHING PATTERN. absent: Chest Wall Tenderness - GI/Abdominal Exam GI & Abdominal Exam: absent: Guarding - Extremities Exam Extremities Exam: absent: Calf Tenderness - Back Exam Back Exam: absent: CVA tenderness (L), CVA tenderness (R) - Neurological Exam Neurological Exam: Alert Assessment and Plan (1) Ulcer of foot Status: Chronic (2) CHF (congestive heart failure) Status: Chronic (3) ESRD (end stage renal disease) on dialysis Assessment & Plan: End stage renal disease patient receiving dialysis now as scheduled. Status post amputation of the right second toe Status post angioplasty of the right leg Hemoglobin dropping down and getting more anemia so I'll increase EPO to 20, 000 units. Status: Chronic
--- NOTE | 2017-02-18 12:39 | CP.PCM.PN ---
Subjective - Date & Time of Evaluation Date of Evaluation: 02/18/17 Time of Evaluation: 08:45 - Subjective Subjective: NO NEW COMPLAINTS VERY LITTLE PAIN FROM TOE SURGICAL SITE Objective - Vital Signs/Intake and Output Vital Signs (last 24 hours): Temp Pulse Resp BP Pulse Ox 98.0 F 99 H 18 153/77 H 96 02/18/17 07:38 02/18/17 07:38 02/18/17 07:38 02/18/17 07:38 02/18/17 07:38 - Medications Medications: Current Medications Acetaminophen (Tylenol 325mg Tab) 650 mg PO Q6 PRN PRN Reason: Pain, moderate (4-7) Aspirin (Ecotrin) 81 mg PO DAILY [facility] Last Admin: 02/18/17 09:45 Dose: 81 mg Atorvastatin Calcium (Lipitor) 10 mg PO HS [facility] Last Admin: 02/17/17 21:52 Dose: 10 mg Docusate Sodium (Colace) 100 mg PO BID [facility] Last Admin: 02/18/17 09:45 Dose: 100 mg Epoetin Avery (Procrit) 20,000 unit IV MWF [facility] Hydromorphone HCl (Dilaudid) 1 mg IVP Q4H PRN PRN Reason: Pain, severe (8-10) Hydromorphone HCl (Dilaudid) 0.5 mg IVP Q4H PRN PRN Reason: Pain, severe (8-10) Cefepime HCl 1 gm/ Sodium (Chloride) 100 mls @ 100 mls/hr IVPB DAILY [facility] Last Admin: 02/17/17 08:04 Dose: 100 mls/hr Insulin Human Regular (Humulin R) 0 units SC ACHS [facility] PRN Reason: Protocol Last Admin: 02/18/17 12:01 Dose: 4 units Ondansetron HCl (Zofran Inj) 4 mg IVP Q6 PRN PRN Reason: Nausea/Vomiting Last Admin: 02/15/17 00:24 Dose: 4 mg Pantoprazole Sodium (Protonix Ec Tab) 40 mg PO DAILY [facility] Last Admin: 02/18/17 09:45 Dose: 40 mg Sevelamer HCl (Renagel) 2,400 mg PO TID [facility] Last Admin: 02/18/17 09:44 Dose: 2,400 mg Sitagliptin Phosphate (Januvia) 25 mg PO DAILY [facility] Last Admin: 02/18/17 09:45 Dose: 25 mg Vitamin B Complex/Vit C/Folic Acid (Nephro-Niko) 1 tab PO DAILY [facility] Last Admin: 02/18/17 09:45 Dose: 1 tab - Labs Labs: 02/17/17 05:00 02/17/17 05:00 PT 15.4 Seconds (9.8-13.1) H 02/16/17 03:50 INR 1.4 (0.9-1.2) H 02/16/17 03:50 APTT 28.6 Seconds (25.6-37.1) 02/13/17 04:00 - Respiratory Exam Respiratory Exam: Decreased Breath Sounds - Cardiovascular Exam Cardiovascular Exam: Irregular Rhythm, +S1, +S2 - Extremities Exam Additional comments: RIGHT FOOT WITH SURGICAL DRESSINGS Assessment and Plan - Assessment and Plan (Free Text) Assessment: CAD PAD WITH AMPUTATION OF 2ND RIGHT TOE CRF HYPERTENSION DM Plan: CONTINUE ATORVASTATIN AND ASPIRIN WILL NOW RESUME CLOPIDOGREL FOR PAD WITH RECENT REVASCULARIZATION PROCEDURE WILL RESUME CARVEDILOL NOW THAT BP IS MORE STABLE WILL ALSO REPEAT CXR TO SEE IF LARGE PLEURAL EFFUSION PERSISTS NOW TIENT IS MORE STABLE AND CAN BE TAPPED IF NEEDED THAT PA CONSIDER TCU WHEN PATIENT IS READY FOR DISCHARGE SINCE HE MAY NEED ASSISTANCE AND INSTRUCTION ON WALKING WITH TOE AMPUTATION, RECENT PELVIX FRACTURE AND GENERAL DECONDITIONING
[2017-02-18] MEDS: Cefepime 1 GM in Sodium Chloride 0.9% 100 ML IVPB SCH (13:11)
--- NOTE | 2017-02-18 16:37 | RAD ---
HISTORY: LARGE RT PLEURAL EFFUSION COMPARISON: Chest x-ray performed 02/08/17 TECHNIQUE: Chest, one view. FINDINGS: Right-sided IJ approach central venous catheter extends towards the expected location of the cavoatrial junction, obscured by overlying wires and leads. LUNGS: Small to moderate right lower lobe consolidation and/or a fusion. Interstitial prominence may reflect infection or edema. No definite pneumothorax. Please note that chest x-ray has limited sensitivity for the detection of pulmonary masses. CARDIOVASCULAR: Median sternotomy wires with evidence of CABG. Left-sided AICD. Heart size appears top normal. OSSEOUS STRUCTURES: Degenerative changes. VISUALIZED UPPER ABDOMEN: Unremarkable. OTHER FINDINGS: Vascular stent in the right axillary region. IMPRESSION: Small to moderate right lower lobe consolidation and/or a fusion. Interstitial prominence may reflect infection or edema. Right-sided IJ approach central venous catheter extends towards the expected location of the cavoatrial junction, obscured by overlying wires and leads.
[2017-02-18 18:15] LABS: BASO # 0.1 K/uL (0.0-0.2); BASO % 0.5 % (0.0-2.0); EOS # 0.1 K/uL (0.0-0.7); EOS % 0.6 % (0.0-4.0); HEMATOCRIT 29.6 % (35.0-51.0); LYMPH # 0.9 K/uL (1.0-4.3); MEAN CELL VOLUME 70.1 fl (80.0-94.0); MEAN PLATELET VOLUME 8.3 fl (7.2-11.7); MONO # 1.4 K/uL (0.0-0.8); NEUT # 15.2 K/uL (1.8-7.0); NEUT % 85.9 % (50.0-75.0); NRBC % 0.2 % (0.0-0.0); RED CELL DISTRIBUTION WIDTH 20.8 % (11.5-14.5); WHITE BLOOD COUNT 17.6 K/uL (4.8-10.8)
--- NOTE | 2017-02-19 07:35 | CP.PCM.PN ---
Subjective - Date & Time of Evaluation Date of Evaluation: 02/19/17 Time of Evaluation: 07:35 - Subjective Subjective: 76M Objective - Vital Signs/Intake and Output Vital Signs (last 24 hours): Temp Pulse Resp BP Pulse Ox 36.8 C 89 20 125/61 96 02/19/17 00:00 02/19/17 00:00 02/19/17 00:00 02/19/17 00:00 02/19/17 00:00 - Medications Medications: Current Medications Acetaminophen (Tylenol 325mg Tab) 650 mg PO Q6 PRN PRN Reason: Pain, moderate (4-7) Aspirin (Ecotrin) 81 mg PO DAILY [facility] Last Admin: 02/18/17 09:45 Dose: 81 mg Atorvastatin Calcium (Lipitor) 10 mg PO HS [facility] Last Admin: 02/18/17 21:39 Dose: 10 mg Carvedilol (Coreg) 3.125 mg PO Q12 [facility] Last Admin: 02/18/17 21:39 Dose: 3.125 mg Clopidogrel Bisulfate (Plavix) 75 mg PO DAILY [facility] Last Admin: 02/18/17 18:43 Dose: 75 mg Docusate Sodium (Colace) 100 mg PO BID [facility] Last Admin: 02/18/17 16:58 Dose: Not Given Epoetin Avery (Procrit) 20,000 unit IV MWF [facility] Last Admin: 02/18/17 17:23 Dose: 20,000 unit Hydromorphone HCl (Dilaudid) 1 mg IVP Q4H PRN PRN Reason: Pain, severe (8-10) Last Admin: 02/18/17 19:50 Dose: 1 mg Hydromorphone HCl (Dilaudid) 0.5 mg IVP Q4H PRN PRN Reason: Pain, severe (8-10) Cefepime HCl 1 gm/ Sodium (Chloride) 100 mls @ 100 mls/hr IVPB DAILY [facility] Last Admin: 02/18/17 13:11 Dose: 100 mls/hr Insulin Human Regular (Humulin R) 0 units SC ACHS [facility] PRN Reason: Protocol Last Admin: 02/18/17 22:20 Dose: Not Given Ondansetron HCl (Zofran Inj) 4 mg IVP Q6 PRN PRN Reason: Nausea/Vomiting Last Admin: 02/15/17 00:24 Dose: 4 mg Pantoprazole Sodium (Protonix Ec Tab) 40 mg PO DAILY [facility] Last Admin: 02/18/17 09:45 Dose: 40 mg Sevelamer HCl (Renagel) 2,400 mg PO TID [facility] Last Admin: 02/18/17 17:06 Dose: 2,400 mg Sitagliptin Phosphate (Januvia) 25 mg PO DAILY [facility] Last Admin: 02/18/17 09:45 Dose: 25 mg Vitamin B Complex/Vit C/Folic Acid (Nephro-Niko) 1 tab PO DAILY [facility] Last Admin: 02/18/17 09:45 Dose: 1 tab - Labs Labs: 02/18/17 18:06 02/17/17 05:00 PT 15.4 Seconds (9.8-13.1) H 02/16/17 03:50 INR 1.4 (0.9-1.2) H 02/16/17 03:50 APTT 28.6 Seconds (25.6-37.1) 02/13/17 04:00
[2017-02-19] MEDS: Cefepime 1 GM in Sodium Chloride 0.9% 100 ML IVPB SCH (08:26)
[2017-02-19] MEDS: Multivitamin Vitamin B Complex (Nephro-Vite) Tab PO SCH (08:27)
[2017-02-19] MEDS: Pantoprazole 40 mg EC Tab PO SCH (08:27)
[2017-02-19] MEDS: Insulin Regular 100 units/ml SC SCH ×4 (08:28→22:25)
--- NOTE | 2017-02-19 08:34 | CP.PCM.PN ---
Subjective - Date & Time of Evaluation Date of Evaluation: 02/19/17 Time of Evaluation: 08:20 - Subjective Subjective: 76 year old male patient 3 days s/p right 2nd digit amputation at bedside. Denies any pain to the foot today. Denies f/n/v/c/sob/cp. Denies any other pedal complaints. Nursing denies any acute overnight. Objective - Vital Signs/Intake and Output Vital Signs (last 24 hours): Temp Pulse Resp BP Pulse Ox 98.2 F 92 H 20 125/61 96 02/19/17 00:00 02/19/17 08:27 02/19/17 00:00 02/19/17 00:00 02/19/17 00:00 - Medications Medications: Current Medications Acetaminophen (Tylenol 325mg Tab) 650 mg PO Q6 PRN PRN Reason: Pain, moderate (4-7) Aspirin (Ecotrin) 81 mg PO DAILY [facility] Last Admin: 02/19/17 08:27 Dose: 81 mg Atorvastatin Calcium (Lipitor) 10 mg PO HS [facility] Last Admin: 02/18/17 21:39 Dose: 10 mg Carvedilol (Coreg) 3.125 mg PO Q12 [facility] Last Admin: 02/19/17 08:27 Dose: 3.125 mg Clopidogrel Bisulfate (Plavix) 75 mg PO DAILY [facility] Last Admin: 02/19/17 08:27 Dose: 75 mg Docusate Sodium (Colace) 100 mg PO BID [facility] Last Admin: 02/19/17 08:26 Dose: 100 mg Epoetin Avery (Procrit) 20,000 unit IV MWF [facility] Last Admin: 02/18/17 17:23 Dose: 20,000 unit Hydromorphone HCl (Dilaudid) 1 mg IVP Q4H PRN PRN Reason: Pain, severe (8-10) Last Admin: 02/18/17 19:50 Dose: 1 mg Hydromorphone HCl (Dilaudid) 0.5 mg IVP Q4H PRN PRN Reason: Pain, severe (8-10) Cefepime HCl 1 gm/ Sodium (Chloride) 100 mls @ 100 mls/hr IVPB DAILY [facility] Last Admin: 02/19/17 08:26 Dose: 100 mls/hr Insulin Human Regular (Humulin R) 0 units SC [facility] PRN Reason: Protocol Last Admin: 02/19/17 08:28 Dose: 1 units Ondansetron HCl (Zofran Inj) 4 mg IVP Q6 PRN PRN Reason: Nausea/Vomiting Last Admin: 02/15/17 00:24 Dose: 4 mg Pantoprazole Sodium (Protonix Ec Tab) 40 mg PO DAILY [facility] Last Admin: 02/19/17 08:27 Dose: 40 mg Sevelamer HCl (Renagel) 2,400 mg PO TID [facility] Last Admin: 02/19/17 08:27 Dose: 2,400 mg Sitagliptin Phosphate (Januvia) 25 mg PO DAILY [facility] Last Admin: 02/19/17 08:28 Dose: 25 mg Vitamin B Complex/Vit C/Folic Acid (Nephro-Niko) 1 tab PO DAILY [facility] Last Admin: 02/19/17 08:27 Dose: 1 tab - Labs Labs: 02/18/17 18:06 02/17/17 05:00 PT 15.4 Seconds (9.8-13.1) H 02/16/17 03:50 INR 1.4 (0.9-1.2) H 02/16/17 03:50 APTT 28.6 Seconds (25.6-37.1) 02/13/17 04:00 - Constitutional Appears: Well, Non-toxic, No Acute Distress - Extremities Exam Additional comments: DERM: Surgical incision is well coapted with all sutures intact. No dehiscence noted with packing still intact. No maceration of the wound edges noted. No drainage noted. No pus, no erythema, or no mal-odor is noted. No clinical signs of infection. Vasc: PT pulses lightly palpable on R, nonpalpable L. CFT <3 seconds to all digits b/l. Skin temp warm to cool from proximal to distal. Neuro: Protective sensation grossly intact b/l - Neurological Exam Neurological Exam: Alert, Awake, Oriented x3 - Psychiatric Exam Psychiatric exam: Normal Affect, Normal Mood Assessment and Plan - Assessment and Plan (Free Text) Assessment: 76 year old male patient 3 days s/p right 2nd digit amputation Plan: Patient seen and evaluated Discussed plan with Dr. Lebron Chart, labs and vitals reviewed Surgical incision was dressed with betadine soaked gauze, DSD, Kerlix and lightly wrapped BARI. c/w NWB to the right foot PT recommends subacute rehab Stable per podiatry Will continue to follow while in house
--- NOTE | 2017-02-19 09:53 | CP.PCM.PN ---
Subjective - Date & Time of Evaluation Date of Evaluation: 02/19/17 Time of Evaluation: 09:00 - Subjective Subjective: NO CHEST PAIN OR SOB Objective - Vital Signs/Intake and Output Vital Signs (last 24 hours): Temp Pulse Resp BP Pulse Ox 98.2 F 92 H 20 125/61 96 02/19/17 00:00 02/19/17 08:27 02/19/17 00:00 02/19/17 00:00 02/19/17 00:00 - Medications Medications: Current Medications Acetaminophen (Tylenol 325mg Tab) 650 mg PO Q6 PRN PRN Reason: Pain, moderate (4-7) Aspirin (Ecotrin) 81 mg PO DAILY [facility] Last Admin: 02/19/17 08:27 Dose: 81 mg Atorvastatin Calcium (Lipitor) 10 mg PO HS [facility] Last Admin: 02/18/17 21:39 Dose: 10 mg Carvedilol (Coreg) 3.125 mg PO Q12 [facility] Last Admin: 02/19/17 08:27 Dose: 3.125 mg Clopidogrel Bisulfate (Plavix) 75 mg PO DAILY [facility] Last Admin: 02/19/17 08:27 Dose: 75 mg Docusate Sodium (Colace) 100 mg PO BID [facility] Last Admin: 02/19/17 08:26 Dose: 100 mg Epoetin Avery (Procrit) 20,000 unit IV MWF [facility] Last Admin: 02/18/17 17:23 Dose: 20,000 unit Hydromorphone HCl (Dilaudid) 1 mg IVP Q4H PRN PRN Reason: Pain, severe (8-10) Last Admin: 02/18/17 19:50 Dose: 1 mg Hydromorphone HCl (Dilaudid) 0.5 mg IVP Q4H PRN PRN Reason: Pain, severe (8-10) Cefepime HCl 1 gm/ Sodium (Chloride) 100 mls @ 100 mls/hr IVPB DAILY [facility] Last Admin: 02/19/17 08:26 Dose: 100 mls/hr Insulin Human Regular (Humulin R) 0 units SC ACHS [facility] PRN Reason: Protocol Last Admin: 02/19/17 08:28 Dose: 1 units Ondansetron HCl (Zofran Inj) 4 mg IVP Q6 PRN PRN Reason: Nausea/Vomiting Last Admin: 02/15/17 00:24 Dose: 4 mg Pantoprazole Sodium (Protonix Ec Tab) 40 mg PO DAILY [facility] Last Admin: 02/19/17 08:27 Dose: 40 mg Sevelamer HCl (Renagel) 2,400 mg PO TID [facility] Last Admin: 02/19/17 08:27 Dose: 2,400 mg Sitagliptin Phosphate (Januvia) 25 mg PO DAILY [facility] Last Admin: 02/19/17 08:28 Dose: 25 mg Vitamin B Complex/Vit C/Folic Acid (Nephro-Niko) 1 tab PO DAILY [facility] Last Admin: 02/19/17 08:27 Dose: 1 tab - Labs Labs: 02/18/17 18:06 02/17/17 05:00 PT 15.4 Seconds (9.8-13.1) H 02/16/17 03:50 INR 1.4 (0.9-1.2) H 02/16/17 03:50 APTT 28.6 Seconds (25.6-37.1) 02/13/17 04:00 - Respiratory Exam Respiratory Exam: Decreased Breath Sounds - Cardiovascular Exam Cardiovascular Exam: REGULAR RHYTHM, +S1, +S2 - Additional Findings Additional findings: CXR WITH SMALL TO MODERATE RT PLEURAL EFFUSION(LESS THAN 02/06/19 CXR AND CLOSER TO PATIENT'S BASELINE) Assessment and Plan - Assessment and Plan (Free Text) Assessment: PAD WITH RT 2ND TOE AMPUTATION AND REVASCULARIZATION OF RLE CAD HYPERTENSION CRF ON HD Plan: CONTINUE CARVEDILOL, ASPIRIN, CLOPIDOGREL, ATORVASTATIN RECOMMEND TCU FOR REHAB
--- NOTE | 2017-02-19 10:48 | CP.PCM.PN ---
Subjective - Date & Time of Evaluation Date of Evaluation: 02/19/17 Time of Evaluation: 09:00 - Subjective Subjective: awake alert nad c/o pain right foot s/p amp no fever c/s wound + serratia Objective - Vital Signs/Intake and Output Vital Signs (last 24 hours): Temp Pulse Resp BP Pulse Ox 98.2 F 92 H 20 125/61 96 02/19/17 00:00 02/19/17 08:27 02/19/17 00:00 02/19/17 00:00 02/19/17 00:00 - Medications Medications: Current Medications Acetaminophen (Tylenol 325mg Tab) 650 mg PO Q6 PRN PRN Reason: Pain, moderate (4-7) Aspirin (Ecotrin) 81 mg PO DAILY [facility] Last Admin: 02/19/17 08:27 Dose: 81 mg Atorvastatin Calcium (Lipitor) 10 mg PO HS [facility] Last Admin: 02/18/17 21:39 Dose: 10 mg Carvedilol (Coreg) 3.125 mg PO Q12 [facility] Last Admin: 02/19/17 08:27 Dose: 3.125 mg Clopidogrel Bisulfate (Plavix) 75 mg PO DAILY [facility] Last Admin: 02/19/17 08:27 Dose: 75 mg Docusate Sodium (Colace) 100 mg PO BID [facility] Last Admin: 02/19/17 08:26 Dose: 100 mg Epoetin Avery (Procrit) 20,000 unit IV MWF [facility] Last Admin: 02/18/17 17:23 Dose: 20,000 unit Hydromorphone HCl (Dilaudid) 1 mg IVP Q4H PRN PRN Reason: Pain, severe (8-10) Last Admin: 02/18/17 19:50 Dose: 1 mg Hydromorphone HCl (Dilaudid) 0.5 mg IVP Q4H PRN PRN Reason: Pain, severe (8-10) Cefepime HCl 1 gm/ Sodium (Chloride) 100 mls @ 100 mls/hr IVPB DAILY [facility] Last Admin: 02/19/17 08:26 Dose: 100 mls/hr Insulin Human Regular (Humulin R) 0 units SC ACHS [facility] PRN Reason: Protocol Last Admin: 02/19/17 08:28 Dose: 1 units Lactulose (Enulose) 20 gm PO DAILY PRN PRN Reason: Constipation Ondansetron HCl (Zofran Inj) 4 mg IVP Q6 PRN PRN Reason: Nausea/Vomiting Last Admin: 02/15/17 00:24 Dose: 4 mg Pantoprazole Sodium (Protonix Ec Tab) 40 mg PO DAILY [facility] Last Admin: 02/19/17 08:27 Dose: 40 mg Sevelamer HCl (Renagel) 2,400 mg PO TID [facility] Last Admin: 02/19/17 08:27 Dose: 2,400 mg Sitagliptin Phosphate (Januvia) 25 mg PO DAILY [facility] Last Admin: 02/19/17 08:28 Dose: 25 mg Vitamin B Complex/Vit C/Folic Acid (Nephro-Niko) 1 tab PO DAILY [facility] Last Admin: 02/19/17 08:27 Dose: 1 tab - Labs Labs: 02/18/17 18:06 02/17/17 05:00 PT 15.4 Seconds (9.8-13.1) H 02/16/17 03:50 INR 1.4 (0.9-1.2) H 02/16/17 03:50 APTT 28.6 Seconds (25.6-37.1) 02/13/17 04:00 - Constitutional Appears: Non-toxic, Cachectic, Chronically Ill - Head Exam Head Exam: NORMOCEPHALIC - Eye Exam Eye Exam: EOMI, PERRL. absent: Scleral icterus - ENT Exam ENT Exam: Mucous Membranes Dry - Neck Exam Neck Exam: absent: Lymphadenopathy - Respiratory Exam Respiratory Exam: Decreased Breath Sounds, Clear to Ausculation Bilateral - Cardiovascular Exam Cardiovascular Exam: REGULAR RHYTHM - GI/Abdominal Exam GI & Abdominal Exam: Distended, Soft - Rectal Exam Rectal Exam: Deferred - Exam Exam: NORMAL INSPECTION - Extremities Exam Extremities Exam: Joint Swelling, Pedal Edema, Tenderness. absent: Calf Tenderness, Normal Capillary Refill, Normal Inspection - Back Exam Back Exam: absent: CVA tenderness (L), CVA tenderness (R) - Neurological Exam Neurological Exam: Alert, Awake, Oriented x3 - Psychiatric Exam Psychiatric exam: Normal Mood - Skin Skin Exam: Dry Assessment and Plan (1) Ulcer of foot Status: Chronic (2) ESRD (end stage renal disease) Status: Acute (3) CHF (congestive heart failure) Status: Chronic (4) Diabetes Status: Chronic
--- NOTE | 2017-02-19 13:21 | CP.PCM.PN ---
Subjective - Date & Time of Evaluation Date of Evaluation: 02/19/17 Time of Evaluation: 13:19 - Subjective Subjective: Patient is awake consciousness He feels much better Tolerated hemodialysis No new events reported Physical exam Chest no rales Heart no rubs Abdomen soft Extremity no edema Patient and plan Status post angioplasty of the right leg Status post amputation of the second toe on the right End stage renal disease Peripheral vascular disease On antibiotics as per ID patient is not receiving vancomycin because the level is high. Objective - Vital Signs/Intake and Output Vital Signs (last 24 hours): Temp Pulse Resp BP Pulse Ox 98.2 F 95 H 20 125/61 93 L 02/19/17 00:00 02/19/17 11:20 02/19/17 00:00 02/19/17 00:00 02/19/17 11:20 - Medications Medications: Current Medications Acetaminophen (Tylenol 325mg Tab) 650 mg PO Q6 PRN PRN Reason: Pain, moderate (4-7) Aspirin (Ecotrin) 81 mg PO DAILY [facility] Last Admin: 02/19/17 08:27 Dose: 81 mg Atorvastatin Calcium (Lipitor) 10 mg PO HS [facility] Last Admin: 02/18/17 21:39 Dose: 10 mg Carvedilol (Coreg) 3.125 mg PO Q12 [facility] Last Admin: 02/19/17 08:27 Dose: 3.125 mg Clopidogrel Bisulfate (Plavix) 75 mg PO DAILY [facility] Last Admin: 02/19/17 08:27 Dose: 75 mg Docusate Sodium (Colace) 100 mg PO BID [facility] Last Admin: 02/19/17 08:26 Dose: 100 mg Epoetin Avery (Procrit) 20,000 unit IV MWF [facility] Last Admin: 02/18/17 17:23 Dose: 20,000 unit Hydromorphone HCl (Dilaudid) 1 mg IVP Q4H PRN PRN Reason: Pain, severe (8-10) Last Admin: 02/18/17 19:50 Dose: 1 mg Hydromorphone HCl (Dilaudid) 0.5 mg IVP Q4H PRN PRN Reason: Pain, severe (8-10) Cefepime HCl 1 gm/ Sodium (Chloride) 100 mls @ 100 mls/hr IVPB DAILY [facility] Last Admin: 02/19/17 08:26 Dose: 100 mls/hr Insulin Human Regular (Humulin R) 0 units SC ACHS [facility] PRN Reason: Protocol Last Admin: 02/19/17 11:12 Dose: 4 units Lactulose (Enulose) 20 gm PO DAILY PRN PRN Reason: Constipation Ondansetron HCl (Zofran Inj) 4 mg IVP Q6 PRN PRN Reason: Nausea/Vomiting Last Admin: 02/15/17 00:24 Dose: 4 mg Pantoprazole Sodium (Protonix Ec Tab) 40 mg PO DAILY [facility] Last Admin: 02/19/17 08:27 Dose: 40 mg Sevelamer HCl (Renagel) 2,400 mg PO TID [facility] Last Admin: 02/19/17 12:23 Dose: Not Given Sitagliptin Phosphate (Januvia) 25 mg PO DAILY [facility] Last Admin: 02/19/17 08:28 Dose: 25 mg Vitamin B Complex/Vit C/Folic Acid (Nephro-Niko) 1 tab PO DAILY [facility] Last Admin: 02/19/17 08:27 Dose: 1 tab - Labs Labs: 02/18/17 18:06 02/17/17 05:00 PT 15.4 Seconds (9.8-13.1) H 02/16/17 03:50 INR 1.4 (0.9-1.2) H 02/16/17 03:50 APTT 28.6 Seconds (25.6-37.1) 02/13/17 04:00 Assessment and Plan (1) Ulcer of foot Status: Chronic (2) CHF (congestive heart failure) Status: Chronic (3) ESRD (end stage renal disease) on dialysis Status: Chronic
[2017-02-20 07:13] LABS: BASO # 0.1 K/uL (0.0-0.2); BASO % 0.6 % (0.0-2.0); EOS # 0.2 K/uL (0.0-0.7); EOS % 1.2 % (0.0-4.0); HEMATOCRIT 29.4 % (35.0-51.0); LYMPH # 0.9 K/uL (1.0-4.3); LYMPH % 6.6 % (20.0-40.0); MEAN CELL VOLUME 70.3 fl (80.0-94.0); MEAN CORPUSCULAR HEMOGLOBIN 21.1 pg (27.0-31.0); MEAN PLATELET VOLUME 8.5 fl (7.2-11.7); MONO # 1.3 K/uL (0.0-0.8); MONO % 9.3 % (0.0-10.0); NEUT # 11.9 K/uL (1.8-7.0); NEUT % 82.3 % (50.0-75.0); NRBC % 0.2 % (0.0-0.0); PLATELET COUNT 333 K/uL (130-400); RED CELL DISTRIBUTION WIDTH 20.3 % (11.5-14.5); WHITE BLOOD COUNT 14.4 K/uL (4.8-10.8)
[2017-02-20 07:14] LABS: CALCIUM 9.8 mg/dL (8.4-10.2); POTASSIUM 4.3 MMOL/L (3.6-5.0)
[2017-02-20 07:38] VITALS: RESP 20
--- NOTE | 2017-02-20 07:46 | CP.PCM.PN ---
Subjective - Date & Time of Evaluation Date of Evaluation: 02/20/17 Time of Evaluation: 08:25 - Subjective Subjective: 76 year old male patient 4 days s/p right 2nd digit amputation. He is seen resting comfortably at bedside today. Patient denies any pain to the foot today. Patient denies n/v/sob/cp/f or chills. There are no other pedal complaints at this time. Objective - Vital Signs/Intake and Output Vital Signs (last 24 hours): Temp Pulse Resp BP Pulse Ox 97.7 F 84 20 148/61 93 L 02/20/17 07:38 02/20/17 07:38 02/20/17 07:38 02/20/17 07:38 02/20/17 07:38 - Medications Medications: Current Medications Acetaminophen (Tylenol 325mg Tab) 650 mg PO Q6 PRN PRN Reason: Pain, moderate (4-7) Aspirin (Ecotrin) 81 mg PO DAILY [facility] Last Admin: 02/19/17 08:27 Dose: 81 mg Atorvastatin Calcium (Lipitor) 10 mg PO HS [facility] Last Admin: 02/19/17 22:23 Dose: 10 mg Carvedilol (Coreg) 3.125 mg PO Q12 [facility] Last Admin: 02/19/17 22:24 Dose: 3.125 mg Clopidogrel Bisulfate (Plavix) 75 mg PO DAILY [facility] Last Admin: 02/19/17 08:27 Dose: 75 mg Docusate Sodium (Colace) 100 mg PO BID [facility] Last Admin: 02/19/17 16:43 Dose: 100 mg Epoetin Avery (Procrit) 20,000 unit IV MWF [facility] Last Admin: 02/18/17 17:23 Dose: 20,000 unit Hydromorphone HCl (Dilaudid) 1 mg IVP Q4H PRN PRN Reason: Pain, severe (8-10) Last Admin: 02/18/17 19:50 Dose: 1 mg Hydromorphone HCl (Dilaudid) 0.5 mg IVP Q4H PRN PRN Reason: Pain, severe (8-10) Cefepime HCl 1 gm/ Sodium (Chloride) 100 mls @ 100 mls/hr IVPB DAILY [facility] Last Admin: 02/19/17 08:26 Dose: 100 mls/hr Insulin Human Regular (Humulin R) 0 units SC ACHS [facility] PRN Reason: Protocol Last Admin: 02/19/17 22:25 Dose: Not Given Lactulose (Enulose) 20 gm PO DAILY PRN PRN Reason: Constipation Ondansetron HCl (Zofran Inj) 4 mg IVP Q6 PRN PRN Reason: Nausea/Vomiting Last Admin: 02/15/17 00:24 Dose: 4 mg Pantoprazole Sodium (Protonix Ec Tab) 40 mg PO DAILY [facility] Last Admin: 02/19/17 08:27 Dose: 40 mg Sevelamer HCl (Renagel) 2,400 mg PO TID [facility] Last Admin: 02/19/17 16:43 Dose: 2,400 mg Sitagliptin Phosphate (Januvia) 25 mg PO DAILY [facility] Last Admin: 02/19/17 08:28 Dose: 25 mg Vitamin B Complex/Vit C/Folic Acid (Nephro-Niko) 1 tab PO DAILY [facility] Last Admin: 02/19/17 08:27 Dose: 1 tab - Labs Labs: 02/20/17 05:20 02/20/17 05:20 PT 15.4 Seconds (9.8-13.1) H 02/16/17 03:50 INR 1.4 (0.9-1.2) H 02/16/17 03:50 APTT 28.6 Seconds (25.6-37.1) 02/13/17 04:00 - Constitutional Appears: Well, Non-toxic, No Acute Distress - Extremities Exam Additional comments: Vasc: PT pulses lightly palpable on R, nonpalpable L. CFT <3 seconds to all digits b/l. Skin temperature gradient WNL. No peripheral edema noted. DERM: Surgical incision is well coapted with all sutures intact. No dehiscence noted. No maceration of the wound edges noted. There is no clinical signs of infection: no drainage, no pus, no erythema, or no mal-odor is noted. Neuro: Protective sensation grossly intact b/l Ortho: Very mild pain upon palpation of the surgical incision periwound. Assessment and Plan - Assessment and Plan (Free Text) Assessment: 76 year old male patient 4 days s/p right 2nd digit amputation Plan: Patient was seen and evaluated at bedside. Discussed the plan in detail with Dr. Lebron Chart, labs and vitals reviewed Surgical incision was dressed with betadine soaked gauze, DSD, Kerlix and lightly wrapped BARI. Pt will require follow up visit wTanya Lebron at the office for sutures to be removed in 2-3 weeks. Daily local wound care at [facility] Pt is WBAT to right heel with surgical shoe and full WBAT to left lower extremity PT recommends subacute rehab, awaiting dispo Patient is stable per podiatry Will continue to follow while in house
[2017-02-20] MEDS: Multivitamin Vitamin B Complex (Nephro-Vite) Tab PO SCH (08:22)
[2017-02-20] MEDS: Pantoprazole 40 mg EC Tab PO SCH (08:22)
[2017-02-20] MEDS: Insulin Regular 100 units/ml SC SCH ×3 (08:26→16:21)
--- NOTE | 2017-02-20 08:26 | CP.PCM.PN ---
Subjective - Date & Time of Evaluation Date of Evaluation: 02/20/17 Time of Evaluation: 08:00 - Subjective Subjective: NO CHEST PAIN OR SOB RIGHT FOOT OK Objective - Vital Signs/Intake and Output Vital Signs (last 24 hours): Temp Pulse Resp BP Pulse Ox 97.7 F 84 20 148/61 93 L 02/20/17 07:38 02/20/17 07:38 02/20/17 07:38 02/20/17 07:38 02/20/17 07:38 - Medications Medications: Current Medications Acetaminophen (Tylenol 325mg Tab) 650 mg PO Q6 PRN PRN Reason: Pain, moderate (4-7) Aspirin (Ecotrin) 81 mg PO DAILY [facility] Last Admin: 02/19/17 08:27 Dose: 81 mg Atorvastatin Calcium (Lipitor) 10 mg PO HS [facility] Last Admin: 02/19/17 22:23 Dose: 10 mg Carvedilol (Coreg) 3.125 mg PO Q12 [facility] Last Admin: 02/19/17 22:24 Dose: 3.125 mg Clopidogrel Bisulfate (Plavix) 75 mg PO DAILY [facility] Last Admin: 02/19/17 08:27 Dose: 75 mg Docusate Sodium (Colace) 100 mg PO BID [facility] Last Admin: 02/19/17 16:43 Dose: 100 mg Epoetin Avery (Procrit) 20,000 unit IV MWF [facility] Last Admin: 02/18/17 17:23 Dose: 20,000 unit Hydromorphone HCl (Dilaudid) 1 mg IVP Q4H PRN PRN Reason: Pain, severe (8-10) Last Admin: 02/18/17 19:50 Dose: 1 mg Hydromorphone HCl (Dilaudid) 0.5 mg IVP Q4H PRN PRN Reason: Pain, severe (8-10) Cefepime HCl 1 gm/ Sodium (Chloride) 100 mls @ 100 mls/hr IVPB DAILY [facility] Last Admin: 02/19/17 08:26 Dose: 100 mls/hr Insulin Human Regular (Humulin R) 0 units SC ACHS [facility] PRN Reason: Protocol Last Admin: 02/19/17 22:25 Dose: Not Given Lactulose (Enulose) 20 gm PO DAILY PRN PRN Reason: Constipation Ondansetron HCl (Zofran Inj) 4 mg IVP Q6 PRN PRN Reason: Nausea/Vomiting Last Admin: 02/15/17 00:24 Dose: 4 mg Pantoprazole Sodium (Protonix Ec Tab) 40 mg PO DAILY [facility] Last Admin: 02/19/17 08:27 Dose: 40 mg Sevelamer HCl (Renagel) 2,400 mg PO TID [facility] Last Admin: 02/19/17 16:43 Dose: 2,400 mg Sitagliptin Phosphate (Januvia) 25 mg PO DAILY [facility] Last Admin: 02/19/17 08:28 Dose: 25 mg Vitamin B Complex/Vit C/Folic Acid (Nephro-Niko) 1 tab PO DAILY [facility] Last Admin: 02/19/17 08:27 Dose: 1 tab - Labs Labs: 02/20/17 05:20 02/20/17 05:20 PT 15.4 Seconds (9.8-13.1) H 02/16/17 03:50 INR 1.4 (0.9-1.2) H 02/16/17 03:50 APTT 28.6 Seconds (25.6-37.1) 02/13/17 04:00 - Respiratory Exam Respiratory Exam: Decreased Breath Sounds - Cardiovascular Exam Cardiovascular Exam: REGULAR RHYTHM, +S1, +S2 - Extremities Exam Additional comments: RIGHT FOOT WITH SURGICAL BANDAGES Assessment and Plan - Assessment and Plan (Free Text) Assessment: CAD-STABLE PAD HYPERTENSION CRF ON HD DM Plan: CONTINUE ASPIRIN, CLOPIDOGREL, ATORVASTATIN AND CARVEDILOL FOR SUBACUTE REHAB
[2017-02-20 09:04] LABS: EOSINOPHIL 2 % (0-7); NEUTROPHIL 78 % (42-75); REACTIVE LYMPHOCYTES 1 % (0-0); TOTAL CELLS COUNTED 100
[2017-02-20] MEDS: Cefepime 1 GM in Sodium Chloride 0.9% 100 ML IVPB SCH (09:10)
[2017-02-20] MEDS: HYDROmorphone 0.5 mg/0.5 ml ISec IVP PRN ×3 (09:10→18:06)
--- NOTE | 2017-02-20 10:05 | CP.PCM.PN ---
Subjective - Date & Time of Evaluation Date of Evaluation: 02/20/17 Time of Evaluation: 10:02 - Subjective Subjective: Patient appeared to be comfortable Vital signs stable No new event reported overnight Objective - Vital Signs/Intake and Output Vital Signs (last 24 hours): Temp Pulse Resp BP Pulse Ox 97.7 F 84 20 148/61 93 L 02/20/17 07:38 02/20/17 08:24 02/20/17 07:38 02/20/17 08:24 02/20/17 07:38 - Medications Medications: Current Medications Acetaminophen (Tylenol 325mg Tab) 650 mg PO Q6 PRN PRN Reason: Pain, moderate (4-7) Aspirin (Ecotrin) 81 mg PO DAILY [facility] Last Admin: 02/20/17 08:24 Dose: 81 mg Atorvastatin Calcium (Lipitor) 10 mg PO HS [facility] Last Admin: 02/19/17 22:23 Dose: 10 mg Carvedilol (Coreg) 3.125 mg PO Q12 [facility] Last Admin: 02/20/17 08:24 Dose: 3.125 mg Clopidogrel Bisulfate (Plavix) 75 mg PO DAILY [facility] Last Admin: 02/20/17 08:22 Dose: 75 mg Docusate Sodium (Colace) 100 mg PO BID [facility] Last Admin: 02/20/17 08:22 Dose: 100 mg Epoetin Avery (Procrit) 20,000 unit IV MWF [facility] Last Admin: 02/18/17 17:23 Dose: 20,000 unit Hydromorphone HCl (Dilaudid) 1 mg IVP Q4H PRN PRN Reason: Pain, severe (8-10) Last Admin: 02/18/17 19:50 Dose: 1 mg Hydromorphone HCl (Dilaudid) 0.5 mg IVP Q4H PRN PRN Reason: Pain, severe (8-10) Last Admin: 02/20/17 09:10 Dose: 0.5 mg Cefepime HCl 1 gm/ Sodium (Chloride) 100 mls @ 100 mls/hr IVPB DAILY [facility] Last Admin: 02/20/17 09:10 Dose: 100 mls/hr Insulin Human Regular (Humulin R) 0 units SC [facility] PRN Reason: Protocol Last Admin: 02/20/17 08:26 Dose: 4 units Lactulose (Enulose) 20 gm PO DAILY PRN PRN Reason: Constipation Ondansetron HCl (Zofran Inj) 4 mg IVP Q6 PRN PRN Reason: Nausea/Vomiting Last Admin: 02/15/17 00:24 Dose: 4 mg Pantoprazole Sodium (Protonix Ec Tab) 40 mg PO DAILY [facility] Last Admin: 02/20/17 08:22 Dose: 40 mg Sevelamer HCl (Renagel) 2,400 mg PO TID [facility] Last Admin: 02/20/17 08:24 Dose: 2,400 mg Sitagliptin Phosphate (Januvia) 25 mg PO DAILY [facility] Last Admin: 02/20/17 08:22 Dose: 25 mg Vitamin B Complex/Vit C/Folic Acid (Nephro-Niko) 1 tab PO DAILY [facility] Last Admin: 02/20/17 08:22 Dose: 1 tab - Labs Labs: 02/20/17 05:20 02/20/17 05:20 PT 15.4 Seconds (9.8-13.1) H 02/16/17 03:50 INR 1.4 (0.9-1.2) H 02/16/17 03:50 APTT 28.6 Seconds (25.6-37.1) 02/13/17 04:00 - Constitutional Appears: No Acute Distress - ENT Exam ENT Exam: Mucous Membranes Moist - Respiratory Exam Respiratory Exam: NORMAL BREATHING PATTERN. absent: Rales - GI/Abdominal Exam GI & Abdominal Exam: Normal Bowel Sounds. absent: Guarding - Extremities Exam Extremities Exam: absent: Calf Tenderness - Back Exam Back Exam: absent: CVA tenderness (L), CVA tenderness (R) - Neurological Exam Neurological Exam: Alert Assessment and Plan (1) Ulcer of foot Status: Chronic (2) CHF (congestive heart failure) Status: Chronic (3) ESRD (end stage renal disease) on dialysis Assessment & Plan: Patient to have dialysis now with scheduled Serum sodium 138 Potassium 2 mEq Bicarbonate 34 Patient with end stage renal disease status post amputation of the right second toe also status post angioplasty of the right leg for peripheral vascular disease patient tolerating the procedures well. Antibiotics as per primary team with infectious disease. Status: Chronic
--- NOTE | 2017-02-20 13:29 | CP.PCM.PN ---
Subjective - Date & Time of Evaluation Date of Evaluation: 02/20/17 Time of Evaluation: 08:00 - Subjective Subjective: DISCUSSED ON ROUNDS D/C TO SNF ON CEFEPIME FOLLOW UP CXR CONT WOUND CARE Objective - Vital Signs/Intake and Output Vital Signs (last 24 hours): Temp Pulse Resp BP Pulse Ox 97.7 F 80 20 148/61 93 L 02/20/17 07:38 02/20/17 11:43 02/20/17 07:38 02/20/17 08:24 02/20/17 11:43 - Medications Medications: Current Medications Acetaminophen (Tylenol 325mg Tab) 650 mg PO Q6 PRN PRN Reason: Pain, moderate (4-7) Aspirin (Ecotrin) 81 mg PO DAILY [facility] Last Admin: 02/20/17 08:24 Dose: 81 mg Atorvastatin Calcium (Lipitor) 10 mg PO HS [facility] Last Admin: 02/19/17 22:23 Dose: 10 mg Carvedilol (Coreg) 3.125 mg PO Q12 [facility] Last Admin: 02/20/17 08:24 Dose: 3.125 mg Clopidogrel Bisulfate (Plavix) 75 mg PO DAILY [facility] Last Admin: 02/20/17 08:22 Dose: 75 mg Docusate Sodium (Colace) 100 mg PO BID [facility] Last Admin: 02/20/17 08:22 Dose: 100 mg Epoetin Avery (Procrit) 20,000 unit IV MWF [facility] Last Admin: 02/18/17 17:23 Dose: 20,000 unit Hydromorphone HCl (Dilaudid) 1 mg IVP Q4H PRN PRN Reason: Pain, severe (8-10) Last Admin: 02/18/17 19:50 Dose: 1 mg Hydromorphone HCl (Dilaudid) 0.5 mg IVP Q4H PRN PRN Reason: Pain, severe (8-10) Last Admin: 02/20/17 09:10 Dose: 0.5 mg Cefepime HCl 1 gm/ Sodium (Chloride) 100 mls @ 100 mls/hr IVPB DAILY [facility] Last Admin: 02/20/17 09:10 Dose: 100 mls/hr Insulin Human Regular (Humulin R) 0 units SC ACHS [facility] PRN Reason: Protocol Last Admin: 02/20/17 12:08 Dose: 5 units Lactulose (Enulose) 20 gm PO DAILY PRN PRN Reason: Constipation Ondansetron HCl (Zofran Inj) 4 mg IVP Q6 PRN PRN Reason: Nausea/Vomiting Last Admin: 02/15/17 00:24 Dose: 4 mg Pantoprazole Sodium (Protonix Ec Tab) 40 mg PO DAILY [facility] Last Admin: 02/20/17 08:22 Dose: 40 mg Sevelamer HCl (Renagel) 2,400 mg PO TID [facility] Last Admin: 02/20/17 12:09 Dose: 2,400 mg Sitagliptin Phosphate (Januvia) 25 mg PO DAILY [facility] Last Admin: 02/20/17 08:22 Dose: 25 mg Vitamin B Complex/Vit C/Folic Acid (Nephro-Niko) 1 tab PO DAILY [facility] Last Admin: 02/20/17 08:22 Dose: 1 tab - Labs Labs: 02/20/17 05:20 02/20/17 05:20 PT 15.4 Seconds (9.8-13.1) H 02/16/17 03:50 INR 1.4 (0.9-1.2) H 02/16/17 03:50 APTT 28.6 Seconds (25.6-37.1) 02/13/17 04:00 - Constitutional Appears: Non-toxic - Head Exam Head Exam: NORMOCEPHALIC - Eye Exam Eye Exam: PERRL - ENT Exam ENT Exam: Mucous Membranes Dry - Respiratory Exam Respiratory Exam: Decreased Breath Sounds - Cardiovascular Exam Cardiovascular Exam: REGULAR RHYTHM - GI/Abdominal Exam GI & Abdominal Exam: Distended Assessment and Plan (1) Ulcer of foot Status: Chronic (2) ESRD (end stage renal disease) Status: Acute (3) CHF (congestive heart failure) Status: Chronic (4) Diabetes Status: Chronic
[2017-02-20 16:07] VITALS: BP 115/58; PULSE 79; TEMP 97.6; O2SAT 97
--- NOTE | 2017-02-20 21:41 | CP.PCM.PN ---
Subjective - Date & Time of Evaluation Date of Evaluation: 02/20/17 Time of Evaluation: 15:30 - Subjective Subjective: no GI complaints Objective - Vital Signs/Intake and Output Vital Signs (last 24 hours): Temp Pulse Resp BP Pulse Ox 97.6 F 79 20 115/58 L 97 02/20/17 16:07 02/20/17 16:07 02/20/17 16:07 02/20/17 16:07 02/20/17 16:07 - Labs Labs: 02/20/17 05:20 02/20/17 05:20 PT 15.4 Seconds (9.8-13.1) H 02/16/17 03:50 INR 1.4 (0.9-1.2) H 02/16/17 03:50 APTT 28.6 Seconds (25.6-37.1) 02/13/17 04:00 - GI/Abdominal Exam GI & Abdominal Exam: Soft, Normal Bowel Sounds Assessment and Plan - Assessment and Plan (Free Text) Assessment: 76 yo male with multiple medical problems doing well dc planning
== END 2017-02-20 20:24 | DRG 255 ==
LOC: H.ER 13:45 → H.ERHOLD 15:11 → H.MEDSURG1 17:15 → H.TEL 02-08 16:56 → H.ICU/CCU 02-08 19:03 → H.MEDSURG1 02-17 14:43
PROVIDERS: ADMIT Family Medicine; ATTEND Family Medicine
PROC: 5A1D60Z (ICD-10-PCS; 2017-02-16)
PROC: 0Y6R0Z0 Detachment at Right 2nd Toe, Complete, Open Approach (ICD-10-PCS; principal; 2017-02-17)
DX: E11.52 Type 2 diabetes mellitus with diabetic peripheral angiopathy with gangrene (principal); A41.9 Sepsis, unspecified organism; J18.9 Pneumonia, unspecified organism; I13.2 Hypertensive heart and chronic kidney disease with heart failure and with stage 5 chronic kidney disease, or end stage renal disease; K80.00 Calculus of gallbladder with acute cholecystitis without obstruction; N18.6 End stage renal disease; K85.90 Acute pancreatitis without necrosis or infection, unspecified; S32.810A Multiple fractures of pelvis with stable disruption of pelvic ring, initial encounter for closed fracture; I50.22 Chronic systolic (congestive) heart failure; I95.9 Hypotension, unspecified; I48.91 Unspecified atrial fibrillation; I25.5 Ischemic cardiomyopathy; I25.10 Atherosclerotic heart disease of native coronary artery without angina pectoris; W19.XXXA Unspecified fall, initial encounter; E78.00 Pure hypercholesterolemia, unspecified; E78.5 Hyperlipidemia, unspecified; I34.0 Nonrheumatic mitral (valve) insufficiency; K59.00 Constipation, unspecified; Y93.9 Activity, unspecified; Y92.9 Unspecified place or not applicable; Y99.9 Unspecified external cause status; Z79.02 Long term (current) use of antithrombotics/antiplatelets; Z79.4 Long term (current) use of insulin; Z87.891 Personal history of nicotine dependence; Z91.19 Patient's noncompliance with other medical treatment and regimen; Z95.1 Presence of aortocoronary bypass graft; Z95.5 Presence of coronary angioplasty implant and graft; Z95.810 Presence of automatic (implantable) cardiac defibrillator; Z99.2 Dependence on renal dialysis; R55 Syncope and collapse; Z79.84 Long term (current) use of oral hypoglycemic drugs; M25.551 Pain in right hip; E11.22 Type 2 diabetes mellitus with diabetic chronic kidney disease; E11.621 Type 2 diabetes mellitus with foot ulcer; D63.1 Anemia in chronic kidney disease

== ENCOUNTER 2017-02-21 20:37 | Inpatient (IN) | payer MEDICARE, BC ==
--- NOTE | 2017-02-21 21:22 | ED PDOC ---
HPI: General Adult Time Seen by Provider: 02/21/17 21:21 Chief Complaint (Nursing): Foreign Body Chief Complaint (Provider): medical evaluation History Per: Patient (76 y/o male [facility] resident here for evaluation of broken Triple lumen catheter. Patient receives Cefipime for foot wound infection.) Past Medical History Reviewed: Historical Data, Nursing Documentation, Vital Signs Vital Signs: Last Vital Signs Temp 98.4 F 02/21/17 20:44 Pulse 76 02/21/17 20:44 Resp 18 02/21/17 20:44 BP 108/42 L 02/21/17 20:44 Pulse Ox 97 02/21/17 21:22 - Medical History PMH: Atrial Fibrillation, CAD, CHF, HTN, Hypercholesterolemia, End Stage Renal Disease (MWF), Chronic Kidney Disease (ESRD) - Surgical History Surgical History: CABG, Coronary Stent, Pacemaker - Family History Family History: States: Unknown Family Hx - Home Medications Home Medications: Ambulatory Orders Medication Instructions Recorded Clopidogrel [Plavix] 75 mg PO DAILY 11/26/14 NIFEdipine ER [Procardia XL] 60 mg PO DAILY 11/26/14 Albiglutide [Tanzeum] 30 mg SC QWK 03/20/16 B Complex W-C No.20/Folic Acid 1 cap PO DAILY 03/20/16 [Renal Caps Softgel] SITagliptin [Januvia] 50 mg PO DAILY 03/20/16 Sevelamer Carbonate [Renvela] 2,400 mg PO TID 03/20/16 Atorvastatin [Lipitor] 10 mg PO HS 02/06/17 Pantoprazole Sodium [Protonix] 40 mg PO DAILY 02/06/17 Vorapaxar Sulfate [Zontivity] 2.08 mg PO DAILY 02/06/17 Aspirin [Ecotrin] 81 mg PO DAILY 02/20/17 Carvedilol [Coreg] 3.125 mg PO Q12 tab 02/20/17 Cefepime 1gm in NS 100ml [Maxipime 1 gm IVPB DAILY #7 bag 02/20/17 1gm] Docusate [Colace] 100 mg PO BID cap 02/20/17 Epoetin Avery [Procrit] 20,000 unit IV MWF ml 02/20/17 - Allergies Allergies/Adverse Reactions: Allergies Allergy/AdvReac Type Severity Reaction Status Date / Time No Known Allergies Allergy Verified 02/06/17 13:47 Review of Systems ROS Statement: Except As Marked, All Systems Reviewed And Found Negative Physical Exam - Reviewed Nursing Documentation Reviewed: Yes Vital Signs Reviewed: Yes - Physical Exam Appears: Positive for: Well, Non-toxic, No Acute Distress Head Exam: Positive for: ATRAUMATIC, NORMAL INSPECTION, NORMOCEPHALIC Skin: Positive for: Normal Color, Warm, DRY Eye Exam: Positive for: EOMI, Normal appearance, PERRL ENT: Positive for: Normal ENT Inspection Neck: Positive for: Normal, Painless ROM Cardiovascular/Chest: Positive for: Regular Rate, Rhythm Respiratory: Positive for: CNT, Normal Breath Sounds Gastrointestinal/Abdominal: Positive for: Normal Exam, Bowel Sounds, Soft Back: Positive for: Normal Inspection Extremity: Positive for: Normal ROM Neurologic/Psych: Positive for: Alert, Oriented - ECG O2 Sat by Pulse Oximetry: 97 - Progress ED Course And Treament: d/w Dr. Huff d/w Dr. Frost Cefipime 1gm iv x 1 dose morphine 2 mg iv x 1 dose for pain Disposition - Clinical Impression Clinical Impression: Wound infection - Patient ED Disposition Is Patient to be Admitted: Yes - Disposition Disposition Time: 22:21 Condition: FAIR Instructions: Wound Infection (ED)
[2017-02-21] MEDS ORDERED: Cefepime 1 GM in Sodium Chloride 0.9% 100 ML IVPB ONE (22:00)
[2017-02-21 22:36] LABS: BASO # 0.1 K/uL (0.0-0.2); BASO % 0.8 % (0.0-2.0); EOS # 0.1 K/uL (0.0-0.7); EOS % 0.8 % (0.0-4.0); HEMOGLOBIN 8.9 g/dL (12.0-18.0); LYMPH # 1.1 K/uL (1.0-4.3); LYMPH % 6.7 % (20.0-40.0); MEAN CELL VOLUME 70.4 fl (80.0-94.0); MEAN CORPUSCULAR HEMOGLOBIN 20.5 pg (27.0-31.0); MEAN CORPUSCULAR HGB CONC 29.2 g/dL (33.0-37.0); MEAN PLATELET VOLUME 8.6 fl (7.2-11.7); MONO # 1.6 K/uL (0.0-0.8); MONO % 10.3 % (0.0-10.0); NEUT # 12.8 K/uL (1.8-7.0); NEUT % 81.4 % (50.0-75.0); NRBC % 0.2 % (0.0-0.0); RBC 4.34 Mil/uL (4.40-5.90); RED CELL DISTRIBUTION WIDTH 20.3 % (11.5-14.5); WHITE BLOOD COUNT 15.7 K/uL (4.8-10.8)
[2017-02-21 22:45] LABS: ALB/GLOB RATIO 0.9 (1.0-2.1); ALBUMIN 3.7 g/dL (3.5-5.0); CALCIUM 9.5 mg/dL (8.4-10.2); MAGNESIUM 2.1 MG/DL (1.6-2.3)
[2017-02-22] MEDS ORDERED: ALBIGLUTIDE 30 MG SC SCH (06:30)
[2017-02-22 07:42] LABS: PROTHROMBIN TIME 16.7 Seconds (9.8-13.1)
[2017-02-22 07:43] LABS: INR 1.5 (0.9-1.2)
[2017-02-22] MEDS ORDERED: [UNRECOGNIZED DRUG - REMARK] PO SCH (09:00)
[2017-02-22] MEDS ORDERED: Pantoprazole 40 mg EC Tab PO SCH (09:00)
[2017-02-22] MEDS ORDERED: Epoetin Alfa 20000 UNIT/ML (RENAL DOSE) IV SCH (09:00)
[2017-02-22] MEDS ORDERED: NIFEdipine 30 mg ER Tab PO SCH (09:00)
[2017-02-22] MEDS ORDERED: Patient's Own Med (Cefepime 1gm In Ns 100ml [Maxipime 1gm] 1 GM) IVPB SCH (09:00)
[2017-02-22] MEDS: NIFEdipine 60 mg ER Tab PO SCH (09:26)
[2017-02-22] MEDS: Multivitamin Vitamin B Complex (Nephro-Vite) Tab PO SCH (09:26)
[2017-02-22] MEDS: Pantoprazole 40 mg EC Tab PO SCH (09:27)
--- NOTE | 2017-02-22 10:12 | RAD ---
PROCEDURE: CHEST RADIOGRAPH, 1 VIEW HISTORY: routine COMPARISON: 02/18/2017 FINDINGS: There is stable appearance of a right subclavian stent. LUNGS: There is no significant interval change in multifocal patchy airspace disease in the right lung. There is subsegmental atelectasis in the left lower lobe. There is also persistent pulmonary venous congestion. PLEURA: There is no significant interval change in small right pleural effusion. No pneumothorax. CARDIOVASCULAR: There is mild cardiomegaly. Status post CABG. There is stable position of a left-sided dual lead transvenous permanent pacing device. OSSEOUS STRUCTURES: No significant abnormalities. VISUALIZED UPPER ABDOMEN: Normal. OTHER FINDINGS: None. IMPRESSION: 1. No significant interval change in multifocal pneumonia. Follow-up to resolution is advised. 2. Persistent mild cardiomegaly and pulmonary venous congestion.
[2017-02-22] MEDS: Oxycodone/Acetaminophen 5/325 mg Tab PO PRN ×2 (10:43→19:09)
[2017-02-22] MEDS: Cefepime 1 GM in Sodium Chloride 0.9% 100 ML IVPB SCH (10:59)
--- NOTE | 2017-02-22 12:14 | CP.PCM.CON ---
History of Present Illness - History of Present Illness History of Present Illness: 76 yo male admitted from [facility] with central line issues being treated for pneumonia s/p amp 2nd digit right foot- gangrene PMH: Atrial Fibrillation, CAD, CHF, HTN, Hypercholesterolemia, End Stage Renal Disease (MWF), Chronic Kidney Disease (ESRD) Review of Systems - Constitutional Constitutional: As Per HPI, Anorexia, Malaise - EENT Eyes: absent: As Per HPI, Blind Spots, Blurred Vision, Change in Vision, Decreased Night Vision, Diplopia, Discharge, Dry Eye, Exophthalmos, Floaters, Irritation, Itchy Eyes, Loss of Peripheral Vision, Pain, Photophobia, Requires Corrective Lenses, Sees Flashes, Spots in Vision, Tunnel Vision, Other Visual Disturbances, Loss of Vision, Other Ears: absent: As Per HPI, Decreased Hearing, Ear Discharge, Ear Pain, Tinnitus, Abnormal Hearing, Disequilibrium, Dizziness, Other Nose/Mouth/Throat: absent: As Per HPI, Epistaxis, Nasal Congestion, Nasal Discharge, Nasal Obstruction, Nasal Trauma, Nose Pain, Post Nasal Drip, Sinus Pain, Sinus Pressure, Bleeding Gums, Change in Voice, Dental Pain, Dry Mouth, Dysphagia, Halitosis, Hoarsness, Lip Swelling, Mouth Lesions, Mouth Pain, Odynophagia, Sore Throat, Throat Swelling, Tongue Swelling, Facial Pain, Neck Pain, Neck Mass, Other - Cardiovascular Cardiovascular: absent: As Per HPI, Acrocyanosis, Chest Pain, Chest Pain at Rest , Chest Pain with Activity, Claudication, Diaphoresis, Dyspnea, Dyspnea on Exertion, Edema, Irregular Heart Rhythm, Pain Radiating to Arm/Neck/Jaw, Leg Edema, Leg Ulcers, Lightheadedness, Orthopnea, Palpitations, Paroxysmal Nocturnal Dyspnea, Pedal Edema, Radiating Pain, Rapid Heart Rate, Slow Heart Rate, Syncope, Other - Respiratory Respiratory: As Per HPI - Gastrointestinal Gastrointestinal: absent: As Per HPI, Abdominal Pain, Belching, Bloating, Change in Bowel Habits, Change in Stool Character, Coffee Ground Emesis, Constipation, Cramping, Diarrhea, Dyspepsia, Dysphagia, Early Satiety, Excessive Flatus, Fecal Incontinence, Heartburn, Hematemesis, Hematochezia, Loose Stools, Melena, Nausea, Odynophagia, Temesmus, Vomiting, Other - Genitourinary Genitourinary: absent: As Per HPI, Change in Urinary Stream, Difficulty Urinating, Dysuria, Flank Pain, Hematuria, Pyuria, Nocturia, Urinary Incontinence, Urinary Frequency, Urinary Hesitance, Urinary Urgency, Voiding Freq/Small Amts, Freq UTI, Hx Renal/Bladder Calculi, Hx /Renal Surgery, Bladder Distension, Other - Musculoskeletal Musculoskeletal: absent: As Per HPI, Abnormal Gait, Arthralgias, Atrophy, Back Pain, Deformity, Joint Swelling, Limited Range of Motion, Loss of Height, Muscle Cramps, Muscle Weakness, Myalgias, Neck Pain, Numbness, Radiating Pain into Limb, Stiffness, Tingling, Other - Integumentary Integumentary: As Per HPI - Neurological Neurological: absent: As Per HPI, Abnormal Gait, Abnormal Hearing, Abnormal Movements, Abnormal Speech, Behavioral Changes, Burning Sensations, Confusion, Convulsions, Disequilibrium, Dizziness, Numbness, Focal Weakness, Frequent Falls , Headaches, Lack of Coordination, Loss of Vision, Memory Loss, Paresthesias, Radicular Pain, Restless Legs, Sensory Deficit, Syncope, Tingling, Tremor, Vertigo, Weakness, Other Visual Disturbances, Other - Psychiatric Psychiatric: absent: As Per HPI, Abnormal Sleep Pattern, Anhedonia, Anxiety, Auditory Hallucinations, Behavioral Changes, Change in Appetite, Change in Libido, Confusion, Depression, Difficulty Concentrating, Hallucinations, Homicidal Ideation, Hopelessness, Irritability, Memory Loss, Mood Swings, Panic Attacks, Paranoia, Suicidal Ideation, Visual Hallucinations, Tactile Hallucinations, Other - Endocrine Endocrine: absent: As Per HPI, Change in Body Appearance, Change in Libido, Cold Intolorance, Deepening of Voice, Excessive Sweating, Fatigue, Flushing, Heat Intolorance, Increase in Ring/Shoe/Hat Size, Palpitations, Polydipsia, Polyphagia, Polyuria, Other - Hematologic/Lymphatic Hematologic: absent: As Per HPI, Easy Bleeding, Easy Bruising, Lymphadenopathy, Other Past Patient History - Infectious Disease Hx of Infectious Diseases: None - Past Medical History & Family History Past Medical History?: Yes - Past Social History Smoking Status: Never Smoked - CARDIAC Hx Cardiac Disorders: Yes Hx Atrial Fibrillation: Yes Hx Congestive Heart Failure: Yes Hx Hypercholesterolemia: Yes Hx Hypertension: Yes Hx Pacemaker: Yes - PULMONARY Hx Respiratory Disorders: Yes (pleural effusion) - HEENT Hx HEENT Problems: No - RENAL Hx Chronic Kidney Disease: Yes (ESRD) Type of Dialysis Access: right av fistula Date of Last Dialysis Treatment: 02/20/17 - ENDOCRINE/METABOLIC Hx Endocrine Disorders: Yes - HEMATOLOGICAL/ONCOLOGICAL Hx Blood Disorders: No - INTEGUMENTARY Hx Dermatological Problems: No - MUSCULOSKELETAL/RHEUMATOLOGICAL Hx Falls: Yes - GASTROINTESTINAL Hx Gastrointestinal Disorders: No - GENITOURINARY/GYNECOLOGICAL Hx Genitourinary Disorders: No - PSYCHIATRIC Hx Substance Use: No - SURGICAL HISTORY Hx Coronary Artery Bypass Graft: Yes Hx Coronary Stent: Yes - ANESTHESIA Hx Anesthesia: Yes Hx Anesthesia Reactions: No Hx Malignant Hyperthermia: No Meds Allergies/Adverse Reactions: Allergies Allergy/AdvReac Type Severity Reaction Status Date / Time No Known Allergies Allergy Verified 02/06/17 13:47 - Medications Medications: Current Medications Aspirin (Aspirin Chewable) 81 mg PO DAILY [facility] Last Admin: 02/22/17 10:57 Dose: 81 mg Atorvastatin Calcium (Lipitor) 10 mg PO DAILY [facility] Last Admin: 02/22/17 10:59 Dose: 10 mg Carvedilol (Coreg) 3.125 mg PO Q12 [facility] Last Admin: 02/22/17 10:58 Dose: 3.125 mg Clopidogrel Bisulfate (Plavix) 75 mg PO DAILY [facility] Last Admin: 02/22/17 11:00 Dose: 75 mg Docusate Sodium (Colace) 100 mg PO BID [facility] Last Admin: 02/22/17 10:57 Dose: 100 mg Epoetin Avery (Procrit) 20,000 unit IV MWF [facility] Heparin Sodium (Porcine) (Heparin) 5,000 units SC Q12 [facility] PRN Reason: Protocol Home Med (Vorapaxar Sulfate [Zontivity]) 2.08 mg PO DAILY [facility] Cefepime HCl 1 gm/ Sodium (Chloride) 100 mls @ 100 mls/hr IVPB DAILY [facility] Last Admin: 02/22/17 10:59 Dose: 100 mls/hr Nifedipine (Procardia Xl) 60 mg PO DAILY [facility] Last Admin: 02/22/17 09:26 Dose: 60 mg Oxycodone/Acetaminophen (Percocet 5/325 Mg Tab) 2 tab PO Q6 PRN PRN Reason: Pain, severe (8-10) Stop: 02/25/17 10:19 Last Admin: 02/22/17 10:43 Dose: 2 tab Pantoprazole Sodium (Protonix Ec Tab) 40 mg PO DAILY [facility] Last Admin: 02/22/17 09:27 Dose: 40 mg Sevelamer HCl (Renagel) 2,400 mg PO TID [facility] Last Admin: 02/22/17 11:00 Dose: 2,400 mg Sitagliptin Phosphate (Januvia) 50 mg PO DAILY [facility] Last Admin: 02/22/17 09:30 Dose: 50 mg Tramadol HCl (Ultram) 50 mg PO Q6 PRN PRN Reason: Pain, moderate (4-7) Vitamin B Complex/Vit C/Folic Acid (Nephro-Niko) 1 tab PO DAILY [facility] Last Admin: 02/22/17 09:26 Dose: 1 tab Physical Exam - Constitutional Appears: Non-toxic, Chronically Ill - Head Exam Head Exam: ATRAUMATIC, NORMOCEPHALIC - Eye Exam Eye Exam: PERRL. absent: Scleral icterus - ENT Exam ENT Exam: Mucous Membranes Dry, Normal External Ear Exam - Neck Exam Neck exam: Negative for: Lymphadenopathy, Thyromegaly - Respiratory Exam Respiratory Exam: Decreased Breath Sounds, Rhonchi - Cardiovascular Exam Cardiovascular Exam: REGULAR RHYTHM, +S1, +S2 - GI/Abdominal Exam GI & Abdominal Exam: Diminished Bowel Sounds, Soft. absent: Tenderness - Rectal Exam Rectal Exam: Deferred - Exam Exam: NORMAL INSPECTION - Extremities Exam Extremities exam: Positive for: pedal edema - Back Exam Back exam: absent: CVA tenderness (L), CVA tenderness (R) - Neurological Exam Neurological exam: Alert, CN II-XII Intact, Oriented x3, Reflexes Normal - Psychiatric Exam Psychiatric exam: Depressed - Skin Skin Exam: Dry Results - Vital Signs Recent Vital Signs: Last Vital Signs Temp 97.8 F 02/22/17 09:00 Pulse 80 02/22/17 10:58 Resp 18 02/22/17 09:00 BP 126/64 02/22/17 10:58 Pulse Ox 94 L 02/22/17 09:00 - Labs Result Diagrams: 02/21/17 22:32 02/21/17 22:33 Labs: Laboratory Results - last 24 hr 02/22/17 02/22/17 02/22/17 05:14 06:25 06:50 PT 16.7 H INR 1.5 H APTT 29.0 POC Glucose (mg/dL) 263 H 287 H Assessment & Plan (1) Pneumonia Status: Acute (2) Pneumonia Status: Acute (3) CAD (coronary artery disease) Status: Acute (4) CKD (chronic kidney disease) stage 5, GFR less than 15 ml/min Status: Acute (5) Ischemic cardiomyopathy Status: Acute (6) PAD (peripheral artery disease) Status: Acute (7) CHF (congestive heart failure) Status: Chronic (8) Diabetes Status: Chronic Priority: High - Assessment and Plan (Free Text) Assessment: discussded on rounds cont iv rx
--- NOTE | 2017-02-22 13:17 | CP.PCM.CON ---
History of Present Illness - History of Present Illness History of Present Illness: This patient who is known to me just discharged to subacute unit for intravenous antibiotics and outpatient dialysis. Patient readmitted because of problem with the central line for the antibiotics. Patient has amputation of the right second toe also he had angioplasty of the right leg because of the peripheral vascular disease and gangrene of that second toe. Also patient end stage renal disease on dialysis history of CHF history of recurrent admission was some mild perhaps fracture of the pelvis after history fall Review of Systems - Constitutional Constitutional: As Per HPI - EENT Eyes: As Per HPI - Cardiovascular Cardiovascular: absent: Chest Pain, Pedal Edema - Respiratory Respiratory: Dyspnea on Exertion - Gastrointestinal Gastrointestinal: Bloating - Genitourinary Genitourinary: Nocturia - Musculoskeletal Musculoskeletal: Muscle Weakness - Neurological Neurological: As Per HPI Past Patient History - Infectious Disease Hx of Infectious Diseases: None - Past Medical History & Family History Past Medical History?: Yes - Past Social History Smoking Status: Never Smoked - CARDIAC Hx Cardiac Disorders: Yes Hx Atrial Fibrillation: Yes Hx Congestive Heart Failure: Yes Hx Hypercholesterolemia: Yes Hx Hypertension: Yes Hx Pacemaker: Yes - PULMONARY Hx Respiratory Disorders: Yes (pleural effusion) - HEENT Hx HEENT Problems: No - RENAL Hx Chronic Kidney Disease: Yes (ESRD) Type of Dialysis Access: right av fistula Date of Last Dialysis Treatment: 02/20/17 - ENDOCRINE/METABOLIC Hx Endocrine Disorders: Yes - HEMATOLOGICAL/ONCOLOGICAL Hx Blood Disorders: No - INTEGUMENTARY Hx Dermatological Problems: No - MUSCULOSKELETAL/RHEUMATOLOGICAL Hx Falls: Yes - GASTROINTESTINAL Hx Gastrointestinal Disorders: No - GENITOURINARY/GYNECOLOGICAL Hx Genitourinary Disorders: No - PSYCHIATRIC Hx Substance Use: No - SURGICAL HISTORY Hx Coronary Artery Bypass Graft: Yes Hx Coronary Stent: Yes - ANESTHESIA Hx Anesthesia: Yes Hx Anesthesia Reactions: No Hx Malignant Hyperthermia: No Meds Allergies/Adverse Reactions: Allergies Allergy/AdvReac Type Severity Reaction Status Date / Time No Known Allergies Allergy Verified 02/06/17 13:47 - Medications Medications: Current Medications Aspirin (Aspirin Chewable) 81 mg PO DAILY [facility] Last Admin: 02/22/17 10:57 Dose: 81 mg Atorvastatin Calcium (Lipitor) 10 mg PO DAILY [facility] Last Admin: 02/22/17 10:59 Dose: 10 mg Carvedilol (Coreg) 3.125 mg PO Q12 [facility] Last Admin: 02/22/17 10:58 Dose: 3.125 mg Clopidogrel Bisulfate (Plavix) 75 mg PO DAILY [facility] Last Admin: 02/22/17 11:00 Dose: 75 mg Docusate Sodium (Colace) 100 mg PO BID [facility] Last Admin: 02/22/17 10:57 Dose: 100 mg Epoetin Avery (Procrit) 20,000 unit IV MWF [facility] Heparin Sodium (Porcine) (Heparin) 5,000 units SC Q12 [facility] PRN Reason: Protocol Home Med (Vorapaxar Sulfate [Zontivity]) 2.08 mg PO DAILY [facility] Cefepime HCl 1 gm/ Sodium (Chloride) 100 mls @ 100 mls/hr IVPB DAILY [facility] Last Admin: 02/22/17 10:59 Dose: 100 mls/hr Nifedipine (Procardia Xl) 60 mg PO DAILY [facility] Last Admin: 02/22/17 09:26 Dose: 60 mg Oxycodone/Acetaminophen (Percocet 5/325 Mg Tab) 2 tab PO Q6 PRN PRN Reason: Pain, severe (8-10) Stop: 02/25/17 10:19 Last Admin: 02/22/17 10:43 Dose: 2 tab Pantoprazole Sodium (Protonix Ec Tab) 40 mg PO DAILY [facility] Last Admin: 02/22/17 09:27 Dose: 40 mg Sevelamer HCl (Renagel) 2,400 mg PO TID [facility] Last Admin: 02/22/17 11:00 Dose: 2,400 mg Sitagliptin Phosphate (Januvia) 50 mg PO DAILY [facility] Last Admin: 02/22/17 09:30 Dose: 50 mg Tramadol HCl (Ultram) 50 mg PO Q6 PRN PRN Reason: Pain, moderate (4-7) Vitamin B Complex/Vit C/Folic Acid (Nephro-Niko) 1 tab PO DAILY [facility] Last Admin: 02/22/17 09:26 Dose: 1 tab Physical Exam - Constitutional Appears: No Acute Distress - ENT Exam ENT Exam: Mucous Membranes Moist - Respiratory Exam Respiratory Exam: absent: Chest Wall Tenderness - Cardiovascular Exam Cardiovascular Exam: REGULAR RHYTHM. absent: JVD, Rubs - Extremities Exam Extremities exam: Negative for: calf tenderness - Back Exam Back exam: absent: CVA tenderness (L), CVA tenderness (R) - Neurological Exam Neurological exam: Alert Results - Vital Signs Recent Vital Signs: Last Vital Signs Temp 97.8 F 02/22/17 09:00 Pulse 80 02/22/17 10:58 Resp 18 02/22/17 09:00 BP 126/64 02/22/17 10:58 Pulse Ox 94 L 02/22/17 09:00 - Labs Result Diagrams: 02/21/17 22:32 02/21/17 22:33 Labs: Laboratory Results - last 24 hr 02/22/17 02/22/17 02/22/17 05:14 06:25 06:50 PT 16.7 H INR 1.5 H APTT 29.0 POC Glucose (mg/dL) 263 H 287 H 02/22/17 11:33 PT INR APTT POC Glucose (mg/dL) 415 H* Assessment & Plan (1) Wound infection Status: Acute (2) CKD (chronic kidney disease) stage 5, GFR less than 15 ml/min Assessment and Plan: Patient readmitted because of problem with the Port-A-Cath for antibiotics End stage renal disease is due to have dialysis order was given hemofiltration about 2500 mL Potassium bath 2 mEq Continue EPO for the anemia 20,000 units And continue phosphorus binder as well Bicarbonate bath 34 Sodium bath 2.5 Status: Acute
[2017-02-22] MEDS ORDERED: Insulin Regular 100 units/ml SC ONE (13:50)
[2017-02-22] MEDS: Insulin Regular 100 units/ml SC SCH ×2 (17:16→23:05)
--- NOTE | 2017-02-22 17:27 | CP.PCM.CON ---
History of Present Illness - History of Present Illness History of Present Illness: Podiatry consulted on 76 year old male patient 6 days s/p right 2nd digit amputation. He is seen resting comfortably at bedside today. Pt left on 02/20/17 but was readmitted on 02/21/17 because his central line is broken. Patient states his foot is in mild pain at the incision site. Patient denies n/v/sob/cp/ f or chills. There are no other pedal complaints at this time. PMHx:CAD, CHF, HTN, Hypercholesterolemia, ESRD on dialysis, DM, A fib, CHF Meds: see chart PSH: right inguinal hernia repair, CABG, coronary stent, cardiac cath, pacemaker All: NKDA Social: patient admits to being a former smoker but has quit. Denies EtOH and recreational drug use. Review of Systems - Review of Systems Review of Systems: review of systems performed and found to be negative except per HPI Past Patient History - Infectious Disease Hx of Infectious Diseases: None - Past Medical History & Family History Past Medical History?: Yes - Past Social History Smoking Status: Never Smoked - CARDIAC Hx Cardiac Disorders: Yes Hx Atrial Fibrillation: Yes Hx Congestive Heart Failure: Yes Hx Hypercholesterolemia: Yes Hx Hypertension: Yes Hx Pacemaker: Yes - PULMONARY Hx Respiratory Disorders: Yes (pleural effusion) - HEENT Hx HEENT Problems: No - RENAL Hx Chronic Kidney Disease: Yes (ESRD) Type of Dialysis Access: right av fistula Date of Last Dialysis Treatment: 02/20/17 - ENDOCRINE/METABOLIC Hx Endocrine Disorders: Yes - HEMATOLOGICAL/ONCOLOGICAL Hx Blood Disorders: No - INTEGUMENTARY Hx Dermatological Problems: No - MUSCULOSKELETAL/RHEUMATOLOGICAL Hx Falls: Yes - GASTROINTESTINAL Hx Gastrointestinal Disorders: No - GENITOURINARY/GYNECOLOGICAL Hx Genitourinary Disorders: No - PSYCHIATRIC Hx Substance Use: No - SURGICAL HISTORY Hx Coronary Artery Bypass Graft: Yes Hx Coronary Stent: Yes - ANESTHESIA Hx Anesthesia: Yes Hx Anesthesia Reactions: No Hx Malignant Hyperthermia: No Meds Allergies/Adverse Reactions: Allergies Allergy/AdvReac Type Severity Reaction Status Date / Time No Known Allergies Allergy Verified 02/06/17 13:47 - Medications Medications: Current Medications Aspirin (Aspirin Chewable) 81 mg PO DAILY [facility] Last Admin: 02/22/17 10:57 Dose: 81 mg Atorvastatin Calcium (Lipitor) 10 mg PO DAILY [facility] Last Admin: 02/22/17 10:59 Dose: 10 mg Carvedilol (Coreg) 3.125 mg PO Q12 [facility] Last Admin: 02/22/17 10:58 Dose: 3.125 mg Clopidogrel Bisulfate (Plavix) 75 mg PO DAILY [facility] Last Admin: 02/22/17 11:00 Dose: 75 mg Docusate Sodium (Colace) 100 mg PO BID [facility] Last Admin: 02/22/17 17:15 Dose: 100 mg Epoetin Avery (Procrit) 20,000 unit IV MWF [facility] Heparin Sodium (Porcine) (Heparin) 5,000 units SC Q12 [facility] PRN Reason: Protocol Last Admin: 02/22/17 13:24 Dose: 5,000 units Home Med (Vorapaxar Sulfate [Zontivity]) 2.08 mg PO DAILY [facility] Cefepime HCl 1 gm/ Sodium (Chloride) 100 mls @ 100 mls/hr IVPB DAILY [facility] Last Admin: 02/22/17 10:59 Dose: 100 mls/hr Insulin Human Regular (Humulin R) 0 units SC ACCU-CHECK [facility] PRN Reason: Protocol Last Admin: 02/22/17 17:16 Dose: 8 u Nifedipine (Procardia Xl) 60 mg PO DAILY [facility] Last Admin: 02/22/17 09:26 Dose: 60 mg Oxycodone/Acetaminophen (Percocet 5/325 Mg Tab) 2 tab PO Q6 PRN PRN Reason: Pain, severe (8-10) Stop: 02/25/17 10:19 Last Admin: 02/22/17 10:43 Dose: 2 tab Pantoprazole Sodium (Protonix Ec Tab) 40 mg PO DAILY [facility] Last Admin: 02/22/17 09:27 Dose: 40 mg Sevelamer HCl (Renagel) 2,400 mg PO TID [facility] Last Admin: 02/22/17 17:17 Dose: 2,400 mg Sitagliptin Phosphate (Januvia) 50 mg PO DAILY [facility] Last Admin: 02/22/17 09:30 Dose: 50 mg Tramadol HCl (Ultram) 50 mg PO Q6 PRN PRN Reason: Pain, moderate (4-7) Vitamin B Complex/Vit C/Folic Acid (Nephro-Niko) 1 tab PO DAILY [facility] Last Admin: 02/22/17 09:26 Dose: 1 tab Physical Exam - Extremities Exam Additional comments: Right lower extremity focused exam: Vasc: PT pulses lightly palpable on R. CFT <3 seconds to all digits. Skin temperature gradient WNL. No peripheral edema noted. DERM: Surgical incision is well coapted with all sutures intact. No dehiscence noted. No maceration of the wound edges noted. Plantar aspect of incision exhibits skin blistering. No clinical signs of infection: no drainage, no pus, no erythema, or no mal-odor is noted. Neuro: Protective sensation grossly intact Ortho: Very mild pain upon palpation of the surgical incision periwound - Neurological Exam Neurological exam: Alert, Oriented x3 - Psychiatric Exam Psychiatric exam: Normal Affect, Normal Mood Results - Vital Signs Recent Vital Signs: Last Vital Signs Temp 98.2 F 02/22/17 16:06 Pulse 64 02/22/17 16:06 Resp 20 02/22/17 16:06 BP 117/52 L 02/22/17 16:06 Pulse Ox 96 02/22/17 16:06 - Labs Result Diagrams: 02/21/17 22:32 02/21/17 22:33 Labs: Laboratory Results - last 24 hr 02/22/17 02/22/17 02/22/17 05:14 06:25 06:50 PT 16.7 H INR 1.5 H APTT 29.0 POC Glucose (mg/dL) 263 H 287 H 02/22/17 02/22/17 11:33 15:43 PT INR APTT POC Glucose (mg/dL) 415 H* 396 H Assessment & Plan - Assessment and Plan (Free Text) Assessment: 76 year old male patient 6 days s/p right 2nd digit amputation Plan: Patient re-consulted as patient returned yesterday from rehab facility for broken central line. Patient was seen and evaluated at bedside. Discussed the plan in detail with Dr. Lebron Chart, labs and vitals reviewed Surgical incision was dressed with betadine soaked adaptic, gauze, DSD, Kerlix and lightly wrapped BARI without compression. Will discuss with primary team the plan Pt is WBAT to right heel with surgical shoe and full WBAT to left lower extremity Will continue to follow while in house
[2017-02-22] MEDS: Epoetin Alfa 20000 UNIT/ML Inj IV SCH (20:40)
[2017-02-23] MEDS: Oxycodone/Acetaminophen 5/325 mg Tab PO PRN ×3 (00:40→20:57)
[2017-02-23] MEDS: Insulin Regular 100 units/ml SC SCH ×4 (07:04→23:06)
[2017-02-23] MEDS ORDERED: Povidone Iodine Topical 10% Sol ONE (07:30)
[2017-02-23 08:07] LABS: BASO # 0.1 K/uL (0.0-0.2); BASO % 1.1 % (0.0-2.0); EOS # 0.2 K/uL (0.0-0.7); EOS % 1.4 % (0.0-4.0); HEMOGLOBIN 8.3 g/dL (12.0-18.0); LYMPH # 1.2 K/uL (1.0-4.3); LYMPH % 9.7 % (20.0-40.0); MEAN CELL VOLUME 69.6 fl (80.0-94.0); MEAN CORPUSCULAR HEMOGLOBIN 21.1 pg (27.0-31.0); MEAN CORPUSCULAR HGB CONC 30.3 g/dL (33.0-37.0); MEAN PLATELET VOLUME 8.5 fl (7.2-11.7); MONO # 1.4 K/uL (0.0-0.8); NEUT # 9.6 K/uL (1.8-7.0); NEUT % 76.8 % (50.0-75.0); NRBC % 0.1 % (0.0-0.0); PLATELET COUNT 327 K/uL (130-400); RBC 3.91 Mil/uL (4.40-5.90); RED CELL DISTRIBUTION WIDTH 20.7 % (11.5-14.5); WHITE BLOOD COUNT 12.4 K/uL (4.8-10.8)
[2017-02-23 08:14] LABS: ALB/GLOB RATIO 0.9 (1.0-2.1); ALBUMIN 3.6 g/dL (3.5-5.0)
[2017-02-23] MEDS: Cefepime 1 GM in Sodium Chloride 0.9% 100 ML IVPB SCH (08:57)
[2017-02-23] MEDS: NIFEdipine 60 mg ER Tab PO SCH (09:00)
[2017-02-23] MEDS: Multivitamin Vitamin B Complex (Nephro-Vite) Tab PO SCH (09:04)
[2017-02-23] MEDS: Pantoprazole 40 mg EC Tab PO SCH (09:05)
--- NOTE | 2017-02-23 12:14 | CP.PCM.PN ---
Subjective - Date & Time of Evaluation Date of Evaluation: 02/23/17 Time of Evaluation: 07:30 - Subjective Subjective: 76 year old male patient seen at bedside resting comfortably. Patient seen with attending, Dr. Lebron. Patient is 7 days s/p right 2nd digit amputation. Patient reports mild pain to surgical site and tenderness to the bottom of his right foot. Patient denies N/V/F/C/SOB. No other pedal complaints at this time. Objective - Vital Signs/Intake and Output Vital Signs (last 24 hours): Temp Pulse Resp BP Pulse Ox 97.5 F L 70 18 112/53 L 93 L 02/23/17 08:04 02/23/17 09:00 02/23/17 08:04 02/23/17 09:00 02/23/17 08:04 - Medications Medications: Current Medications Aspirin (Aspirin Chewable) 81 mg PO DAILY [facility] Last Admin: 02/23/17 09:04 Dose: 81 mg Atorvastatin Calcium (Lipitor) 10 mg PO DAILY [facility] Last Admin: 02/23/17 09:04 Dose: 10 mg Carvedilol (Coreg) 3.125 mg PO Q12 [facility] Last Admin: 02/23/17 08:59 Dose: Not Given Clopidogrel Bisulfate (Plavix) 75 mg PO DAILY [facility] Last Admin: 02/23/17 09:04 Dose: 75 mg Docusate Sodium (Colace) 100 mg PO BID [facility] Last Admin: 02/23/17 09:01 Dose: 100 mg Epoetin Avery (Procrit) 20,000 unit IV MWF [facility] Last Admin: 02/22/17 20:40 Dose: 20,000 unit Heparin Sodium (Porcine) (Heparin) 5,000 units SC Q12 [facility] PRN Reason: Protocol Last Admin: 02/23/17 09:03 Dose: 5,000 units Home Med (Vorapaxar Sulfate [Zontivity]) 2.08 mg PO DAILY [facility] Cefepime HCl 1 gm/ Sodium (Chloride) 100 mls @ 100 mls/hr IVPB DAILY [facility] Last Admin: 02/23/17 08:57 Dose: 100 mls/hr Insulin Human Regular (Humulin R) 0 units SC ACCU-CHECK [facility] PRN Reason: Protocol Last Admin: 02/23/17 07:04 Dose: 3 u Lactulose (Enulose) 20 gm PO DAILY PRN PRN Reason: Constipation Last Admin: 02/23/17 10:10 Dose: 20 gm Nifedipine (Procardia Xl) 60 mg PO DAILY [facility] Last Admin: 02/23/17 09:00 Dose: 60 mg Oxycodone/Acetaminophen (Percocet 5/325 Mg Tab) 2 tab PO Q4 PRN PRN Reason: Pain, severe (8-10) Stop: 02/25/17 20:42 Last Admin: 02/23/17 10:05 Dose: 2 tab Pantoprazole Sodium (Protonix Ec Tab) 40 mg PO DAILY [facility] Last Admin: 02/23/17 09:05 Dose: 40 mg Sevelamer HCl (Renagel) 2,400 mg PO TID [facility] Last Admin: 02/23/17 08:58 Dose: 2,400 mg Sitagliptin Phosphate (Januvia) 50 mg PO DAILY [facility] Last Admin: 02/23/17 09:05 Dose: 50 mg Tramadol HCl (Ultram) 50 mg PO Q6 PRN PRN Reason: Pain, moderate (4-7) Last Admin: 02/22/17 20:48 Dose: 50 mg Vitamin B Complex/Vit C/Folic Acid (Nephro-Niko) 1 tab PO DAILY [facility] Last Admin: 02/23/17 09:04 Dose: 1 tab - Labs Labs: 02/23/17 06:00 02/23/17 06:00 PT 16.7 Seconds (9.8-13.1) H 02/22/17 06:50 INR 1.5 (0.9-1.2) H 02/22/17 06:50 APTT 29.0 Seconds (25.6-37.1) 02/22/17 06:50 - Constitutional Appears: Non-toxic, No Acute Distress - Extremities Exam Additional comments: Right lower extremity focused exam: Vasc: PT pulses lightly palpable on R. CFT <3 seconds to all digits. Skin temperature gradient WNL. No peripheral edema noted. Derm: Surgical incision is well coapted with all sutures intact. No dehiscence noted. No maceration of the wound edges noted. Plantar aspect of incision exhibits skin blistering. Bullae noted to plantar aspect of medial arch measuring approximately 4 x 3 cm. Once lanced, expressed serosanguinous drainage. No malodor, purulence, or clinical signs of infection noted. Neuro: Protective sensation grossly intact Ortho: Very mild pain upon palpation of the surgical incision periwound - Neurological Exam Neurological Exam: Alert, Awake, Oriented x3 - Psychiatric Exam Psychiatric exam: Normal Affect, Normal Mood Assessment and Plan - Assessment and Plan (Free Text) Assessment: 76 year old male patient 7 days s/p right 2nd digit amputation. Plan: Patient was seen and evaluated at bedside with attending Dr. Lebron Chart, labs and vitals reviewed Bullae to plantar R arch lanced and drainage was cultured. Culture pending. Surgical incision and bullae were dressed with betadine soaked adaptic, gauze, DSD, Kerlix, and light BARI. Dressings to be changed twice a day. Pt is WBAT to right heel with surgical shoe and full WBAT to left lower extremity Will continue to follow while in house
[2017-02-23 14:23] LABS: BASOPHIL 1 % (0-2); EOSINOPHIL 1 % (0-7); LYMPHOCYTE 6 % (20-50); MONOCYTE 11 % (0-10); NEUTROPHIL 81 % (42-75); PLATELET ESTIMATE NORMAL (NORMAL); TOTAL CELLS COUNTED 100
[2017-02-23 14:24] LABS: ANISOCYTOSIS MODERATE; HYPOCHROMIC MODERATE; MICROCYTOSIS MODERATE
[2017-02-23 14:25] LABS: POLYCHROMIC SLIGHT
[2017-02-24] MEDS: Oxycodone/Acetaminophen 5/325 mg Tab PO PRN ×2 (08:40→13:05)
[2017-02-24] MEDS: Cefepime 1 GM in Sodium Chloride 0.9% 100 ML IVPB SCH (08:41)
[2017-02-24] MEDS: NIFEdipine 60 mg ER Tab PO SCH (08:41)
[2017-02-24] MEDS: Insulin Regular 100 units/ml SC SCH ×4 (08:42→22:29)
[2017-02-24] MEDS: Multivitamin Vitamin B Complex (Nephro-Vite) Tab PO SCH (08:43)
[2017-02-24] MEDS: Pantoprazole 40 mg EC Tab PO SCH (08:43)
--- NOTE | 2017-02-24 09:50 | CP.PCM.PN ---
Subjective - Date & Time of Evaluation Date of Evaluation: 02/24/17 Time of Evaluation: 08:40 - Subjective Subjective: 76 year old male patient seen at bedside. Patient is seen resting comfortably in bed. Patient is 8 days s/p right 2nd digit amputation. Patient reports pain to surgical site and tenderness to the bottom of his right foot. Patient denies N/V/F/C/SOB. Denies any acute events overnight. No other pedal complaints at this time Objective - Vital Signs/Intake and Output Vital Signs (last 24 hours): Temp Pulse Resp BP Pulse Ox 98.2 F 86 20 136/64 96 02/24/17 08:09 02/24/17 08:09 02/24/17 08:09 02/24/17 08:09 02/24/17 08:09 - Medications Medications: Current Medications Aspirin (Aspirin Chewable) 81 mg PO DAILY [facility] Last Admin: 02/24/17 08:42 Dose: 81 mg Atorvastatin Calcium (Lipitor) 10 mg PO DAILY [facility] Last Admin: 02/24/17 08:43 Dose: 10 mg Carvedilol (Coreg) 3.125 mg PO Q12 [facility] Last Admin: 02/24/17 08:42 Dose: 3.125 mg Clopidogrel Bisulfate (Plavix) 75 mg PO DAILY [facility] Last Admin: 02/24/17 08:42 Dose: 75 mg Docusate Sodium (Colace) 100 mg PO BID [facility] Last Admin: 02/24/17 08:41 Dose: 100 mg Epoetin Avery (Procrit) 20,000 unit IV MWF [facility] Last Admin: 02/22/17 20:40 Dose: 20,000 unit Heparin Sodium (Porcine) (Heparin) 5,000 units SC Q12 [facility] PRN Reason: Protocol Last Admin: 02/24/17 08:42 Dose: 5,000 units Home Med (Vorapaxar Sulfate [Zontivity]) 2.08 mg PO DAILY [facility] Cefepime HCl 1 gm/ Sodium (Chloride) 100 mls @ 100 mls/hr IVPB DAILY [facility] Last Admin: 02/24/17 08:41 Dose: 100 mls/hr Insulin Human Regular (Humulin R) 0 units SC ACCU-CHECK [facility] PRN Reason: Protocol Last Admin: 02/24/17 08:42 Dose: 3 u Lactulose (Enulose) 20 gm PO DAILY PRN PRN Reason: Constipation Last Admin: 02/23/17 10:10 Dose: 20 gm Nifedipine (Procardia Xl) 60 mg PO DAILY [facility] Last Admin: 02/24/17 08:41 Dose: 60 mg Oxycodone/Acetaminophen (Percocet 5/325 Mg Tab) 2 tab PO Q4 PRN PRN Reason: Pain, severe (8-10) Stop: 02/25/17 20:42 Last Admin: 02/24/17 08:40 Dose: 2 tab Pantoprazole Sodium (Protonix Ec Tab) 40 mg PO DAILY [facility] Last Admin: 02/24/17 08:43 Dose: 40 mg Sevelamer HCl (Renagel) 2,400 mg PO TID [facility] Last Admin: 02/24/17 08:42 Dose: 2,400 mg Sitagliptin Phosphate (Januvia) 50 mg PO DAILY [facility] Last Admin: 02/24/17 08:43 Dose: 50 mg Tramadol HCl (Ultram) 50 mg PO Q6 PRN PRN Reason: Pain, moderate (4-7) Last Admin: 02/22/17 20:48 Dose: 50 mg Vitamin B Complex/Vit C/Folic Acid (Nephro-Niko) 1 tab PO DAILY [facility] Last Admin: 02/24/17 08:43 Dose: 1 tab - Labs Labs: 02/23/17 06:00 02/23/17 06:00 PT 16.7 Seconds (9.8-13.1) H 02/22/17 06:50 INR 1.5 (0.9-1.2) H 02/22/17 06:50 APTT 29.0 Seconds (25.6-37.1) 02/22/17 06:50 - Constitutional Appears: Well, Non-toxic, No Acute Distress - Extremities Exam Additional comments: Right lower extremity focused exam: Vasc: PT pulses lightly palpable on R. CFT <3 seconds to all digits. Skin temperature gradient WNL. No edema noted. Derm: Surgical incision is well coapted with all sutures intact. No dehiscence noted. No maceration of the wound edges noted. No drainage noted or erythema noted from lanced bullae on medial plantar aspect of right foot. No malodor, purulence, or clinical signs of infection noted. No probe to bone. Neuro: Protective sensation grossly intact Ortho: Very mild pain upon palpation of the surgical incision periwound - Neurological Exam Neurological Exam: Alert, Awake, Oriented x3 - Psychiatric Exam Psychiatric exam: Normal Affect, Normal Mood Assessment and Plan - Assessment and Plan (Free Text) Assessment: 76 year old male patient 8 days s/p right 2nd digit amputation. Plan: Patient was seen and evaluated. Discussed plan in details with attending Dr. Lebron Chart, labs and vitals reviewed Wound culture- pending. Surgical incision and bullae were dressed with betadine soaked adaptic, gauze, DSD, Kerlix, and light BARI. Dressings to be changed twice a day. Educated nurse on dressing application Pt is WBAT to right heel with surgical shoe and full WBAT to left lower extremity Continue abx per ID Will continue to follow while in house
--- NOTE | 2017-02-24 12:21 | CP.PCM.PN ---
Subjective - Date & Time of Evaluation Date of Evaluation: 02/24/17 Time of Evaluation: 07:00 - Subjective Subjective: alert NAD denies fever new blister formation on right foot rx in progress Objective - Vital Signs/Intake and Output Vital Signs (last 24 hours): Temp Pulse Resp BP Pulse Ox 98.2 F 86 20 136/64 96 02/24/17 08:09 02/24/17 08:09 02/24/17 08:09 02/24/17 08:09 02/24/17 08:09 - Medications Medications: Current Medications Aspirin (Aspirin Chewable) 81 mg PO DAILY [facility] Last Admin: 02/24/17 08:42 Dose: 81 mg Atorvastatin Calcium (Lipitor) 10 mg PO DAILY [facility] Last Admin: 02/24/17 08:43 Dose: 10 mg Carvedilol (Coreg) 3.125 mg PO Q12 [facility] Last Admin: 02/24/17 08:42 Dose: 3.125 mg Clopidogrel Bisulfate (Plavix) 75 mg PO DAILY [facility] Last Admin: 02/24/17 08:42 Dose: 75 mg Docusate Sodium (Colace) 100 mg PO BID [facility] Last Admin: 02/24/17 08:41 Dose: 100 mg Epoetin Avery (Procrit) 20,000 unit IV MWF [facility] Last Admin: 02/22/17 20:40 Dose: 20,000 unit Heparin Sodium (Porcine) (Heparin) 5,000 units SC Q12 [facility] PRN Reason: Protocol Last Admin: 02/24/17 08:42 Dose: 5,000 units Home Med (Vorapaxar Sulfate [Zontivity]) 2.08 mg PO DAILY [facility] Cefepime HCl 1 gm/ Sodium (Chloride) 100 mls @ 100 mls/hr IVPB DAILY [facility] Last Admin: 02/24/17 08:41 Dose: 100 mls/hr Insulin Human Regular (Humulin R) 0 units SC ACCU-CHECK [facility] PRN Reason: Protocol Last Admin: 02/24/17 12:13 Dose: 3 u Lactulose (Enulose) 20 gm PO DAILY PRN PRN Reason: Constipation Last Admin: 02/23/17 10:10 Dose: 20 gm Nifedipine (Procardia Xl) 60 mg PO DAILY [facility] Last Admin: 02/24/17 08:41 Dose: 60 mg Oxycodone/Acetaminophen (Percocet 5/325 Mg Tab) 2 tab PO Q4 PRN PRN Reason: Pain, severe (8-10) Stop: 02/25/17 20:42 Last Admin: 02/24/17 08:40 Dose: 2 tab Pantoprazole Sodium (Protonix Ec Tab) 40 mg PO DAILY [facility] Last Admin: 02/24/17 08:43 Dose: 40 mg Sevelamer HCl (Renagel) 2,400 mg PO TID [facility] Last Admin: 02/24/17 12:13 Dose: 2,400 mg Sitagliptin Phosphate (Januvia) 50 mg PO DAILY [facility] Last Admin: 02/24/17 08:43 Dose: 50 mg Tramadol HCl (Ultram) 50 mg PO Q6 PRN PRN Reason: Pain, moderate (4-7) Last Admin: 02/22/17 20:48 Dose: 50 mg Vitamin B Complex/Vit C/Folic Acid (Nephro-Niko) 1 tab PO DAILY [facility] Last Admin: 02/24/17 08:43 Dose: 1 tab - Labs Labs: 02/23/17 06:00 02/23/17 06:00 PT 16.7 Seconds (9.8-13.1) H 02/22/17 06:50 INR 1.5 (0.9-1.2) H 02/22/17 06:50 APTT 29.0 Seconds (25.6-37.1) 02/22/17 06:50 - Constitutional Appears: Non-toxic, Chronically Ill - Head Exam Head Exam: NORMOCEPHALIC - Eye Exam Eye Exam: PERRL. absent: Scleral icterus - ENT Exam ENT Exam: Mucous Membranes Dry - Neck Exam Neck Exam: absent: Lymphadenopathy - Respiratory Exam Respiratory Exam: Clear to Ausculation Bilateral. absent: Chest Wall Tenderness , Decreased Breath Sounds - Cardiovascular Exam Cardiovascular Exam: REGULAR RHYTHM - GI/Abdominal Exam GI & Abdominal Exam: Distended, Soft - Rectal Exam Rectal Exam: Deferred - Exam Exam: NORMAL INSPECTION - Extremities Exam Extremities Exam: Pedal Edema, Tenderness - Back Exam Back Exam: absent: CVA tenderness (L), CVA tenderness (R) - Neurological Exam Neurological Exam: Alert, Awake, Oriented x3 - Psychiatric Exam Psychiatric exam: Depressed - Skin Skin Exam: Dry Assessment and Plan (1) Pneumonia Status: Acute (2) Pneumonia Status: Acute (3) CAD (coronary artery disease) Status: Acute (4) CKD (chronic kidney disease) stage 5, GFR less than 15 ml/min Status: Acute (5) Ischemic cardiomyopathy Status: Acute (6) PAD (peripheral artery disease) Status: Acute (7) CHF (congestive heart failure) Status: Chronic (8) Diabetes Status: Chronic - Assessment and Plan (Free Text) Assessment: will add Vanco pending wound culture
[2017-02-25] MEDS: Oxycodone/Acetaminophen 5/325 mg Tab PO PRN ×2 (00:57→08:28)
--- NOTE | 2017-02-25 07:59 | CP.PCM.PN ---
Subjective - Date & Time of Evaluation Date of Evaluation: 02/25/17 Time of Evaluation: 09:13 - Subjective Subjective: 76 y/o male seen at bedside 9 day s/p R 2nd digit amputation. Pt is in NAD and is AAOx3. Pt denies of any acute overnight events. Pt denies of any pain today. Pt denies of any F/N/V/C/SOB today. Pt's dressing is clean, dry and intact. Objective - Vital Signs/Intake and Output Vital Signs (last 24 hours): Temp Pulse Resp BP Pulse Ox 97.3 F L 78 18 108/54 L 94 L 02/25/17 00:19 02/25/17 00:19 02/25/17 00:19 02/25/17 00:19 02/25/17 00:19 - Medications Medications: Current Medications Aspirin (Aspirin Chewable) 81 mg PO DAILY [facility] Last Admin: 02/24/17 08:42 Dose: 81 mg Atorvastatin Calcium (Lipitor) 10 mg PO DAILY [facility] Last Admin: 02/24/17 08:43 Dose: 10 mg Carvedilol (Coreg) 3.125 mg PO Q12 [facility] Last Admin: 02/24/17 22:00 Dose: 3.125 mg Clopidogrel Bisulfate (Plavix) 75 mg PO DAILY [facility] Last Admin: 02/24/17 08:42 Dose: 75 mg Docusate Sodium (Colace) 100 mg PO BID [facility] Last Admin: 02/24/17 16:01 Dose: 100 mg Epoetin Avery (Procrit) 20,000 unit IV MWF [facility] Last Admin: 02/22/17 20:40 Dose: 20,000 unit Heparin Sodium (Porcine) (Heparin) 5,000 units SC Q12 [facility] PRN Reason: Protocol Last Admin: 02/24/17 22:00 Dose: 5,000 units Home Med (Vorapaxar Sulfate [Zontivity]) 2.08 mg PO DAILY [facility] Cefepime HCl 1 gm/ Sodium (Chloride) 100 mls @ 100 mls/hr IVPB DAILY [facility] Last Admin: 02/24/17 08:41 Dose: 100 mls/hr Vancomycin HCl 500 mg/ Sodium (Chloride) 100 mls @ 100 mls/hr IVPB MWF [facility] Insulin Human Regular (Humulin R) 0 units SC ACCU-CHECK [facility] PRN Reason: Protocol Last Admin: 02/24/17 22:29 Dose: Not Given Lactulose (Enulose) 20 gm PO DAILY PRN PRN Reason: Constipation Last Admin: 02/23/17 10:10 Dose: 20 gm Nifedipine (Procardia Xl) 60 mg PO DAILY [facility] Last Admin: 02/24/17 08:41 Dose: 60 mg Oxycodone/Acetaminophen (Percocet 5/325 Mg Tab) 2 tab PO Q4 PRN PRN Reason: Pain, severe (8-10) Stop: 02/25/17 20:42 Last Admin: 02/25/17 00:57 Dose: 2 tab Pantoprazole Sodium (Protonix Ec Tab) 40 mg PO DAILY [facility] Last Admin: 02/24/17 08:43 Dose: 40 mg Sevelamer HCl (Renagel) 2,400 mg PO TID [facility] Last Admin: 02/24/17 16:01 Dose: 2,400 mg Sitagliptin Phosphate (Januvia) 50 mg PO DAILY [facility] Last Admin: 02/24/17 08:43 Dose: 50 mg Tramadol HCl (Ultram) 50 mg PO Q6 PRN PRN Reason: Pain, moderate (4-7) Last Admin: 02/22/17 20:48 Dose: 50 mg Vitamin B Complex/Vit C/Folic Acid (Nephro-Niko) 1 tab PO DAILY [facility] Last Admin: 02/24/17 08:43 Dose: 1 tab - Labs Labs: 02/23/17 06:00 02/23/17 06:00 PT 16.7 Seconds (9.8-13.1) H 02/22/17 06:50 INR 1.5 (0.9-1.2) H 02/22/17 06:50 APTT 29.0 Seconds (25.6-37.1) 02/22/17 06:50 - Constitutional Appears: Well, Non-toxic, No Acute Distress - Extremities Exam Additional comments: Right foot focused: VASC: DP/PT pulses are palpable 2/4, [employer]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 Pt discussed with attending Dr. Lebron Chart, labs and vitals reviewed Wound culture- pending. Surgical incision and bullae were dressed with betadine soaked adaptic, gauze, DSD, Kerlix, and light BARI. Pt is WBAT to right heel with surgical shoe and full WBAT to left lower extremity Continue abx per ID (cefepime and vancomycin per Dr. Muniz) Podiatry will continue to follow while in house
[2017-02-25] MEDS: Insulin Regular 100 units/ml SC SCH ×4 (08:06→22:55)
[2017-02-25 09:53] LABS: BASO # 0.2 K/uL (0.0-0.2); EOS # 0.2 K/uL (0.0-0.7); HEMOGLOBIN 8.7 g/dL (12.0-18.0); LYMPH # 1.1 K/uL (1.0-4.3); LYMPH % 7.3 % (20.0-40.0); MEAN CELL VOLUME 69.9 fl (80.0-94.0); MEAN CORPUSCULAR HEMOGLOBIN 20.4 pg (27.0-31.0); MEAN CORPUSCULAR HGB CONC 29.1 g/dL (33.0-37.0); MEAN PLATELET VOLUME 8.5 fl (7.2-11.7); MONO % 6.9 % (0.0-10.0); NEUT # 12.7 K/uL (1.8-7.0); NEUT % 83.8 % (50.0-75.0); NRBC % 0.1 % (0.0-0.0); RBC 4.26 Mil/uL (4.40-5.90); RED CELL DISTRIBUTION WIDTH 21.2 % (11.5-14.5); WHITE BLOOD COUNT 15.2 K/uL (4.8-10.8)
[2017-02-25 10:01] LABS: ALBUMIN 3.9 g/dL (3.5-5.0)
[2017-02-25 10:04] LABS: ALB/GLOB RATIO 0.9 (1.0-2.1)
[2017-02-25 10:05] LABS: CALCIUM 9.8 mg/dL (8.4-10.2)
[2017-02-25] MEDS: Multivitamin Vitamin B Complex (Nephro-Vite) Tab PO SCH (10:50)
--- NOTE | 2017-02-25 11:02 | RAD ---
HISTORY: F/u pneumonia COMPARISON: 02/21/2017 FINDINGS: LUNGS: Confluent opacity mid and lower right lung, grossly unchanged. This is due, in part, to pleural effusion superimposed. Linear scar/atelectasis at left base. PLEURA: Small to moderate right pleural effusion. No evidence of left pleural effusion. CARDIOVASCULAR: CABG. Permanent pacemaker. OSSEOUS STRUCTURES: No significant abnormalities. VISUALIZED UPPER ABDOMEN: Normal. OTHER FINDINGS: None. IMPRESSION: Right pleural effusion and right basilar infiltrate.
--- NOTE | 2017-02-25 11:02 | CP.PCM.PN ---
Subjective - Date & Time of Evaluation Date of Evaluation: 02/25/17 Time of Evaluation: 10:59 - Subjective Subjective: He was seen on hemodialysis now Patient awake and conscious Patient complaining of right foot pain at the site of surgery intermittently throughout the night Although the right leg appears to be warm. Physical exam Chest no rales Heart no rubs Abdomen soft Extremity right leg warm and he has surgery of the right foot with dressing been follow-up by the surgery Left leg no edema The patient and plan IV antibiotics as per ID and primary team Patient tolerating hemodialysis was potassium about 2 mEq Sodium bath 138 Ultrafiltration about 2000 mL as tolerated Bicarbonate bath about 34 Continue monitoring I spoke to her lumbar of the family including the sisters the son and the on Saturday afternoon for a long time for about 1 hour . Objective - Vital Signs/Intake and Output Vital Signs (last 24 hours): Temp Pulse Resp BP Pulse Ox 97.8 F 79 20 123/61 90 L 02/25/17 09:01 02/25/17 09:01 02/25/17 09:01 02/25/17 09:01 02/25/17 09:01 - Medications Medications: Current Medications Aspirin (Aspirin Chewable) 81 mg PO DAILY [facility] Last Admin: 02/24/17 08:42 Dose: 81 mg Atorvastatin Calcium (Lipitor) 10 mg PO DAILY [facility] Last Admin: 02/24/17 08:43 Dose: 10 mg Carvedilol (Coreg) 3.125 mg PO Q12 [facility] Last Admin: 02/24/17 22:00 Dose: 3.125 mg Clopidogrel Bisulfate (Plavix) 75 mg PO DAILY [facility] Last Admin: 02/24/17 08:42 Dose: 75 mg Docusate Sodium (Colace) 100 mg PO BID [facility] Last Admin: 02/24/17 16:01 Dose: 100 mg Epoetin Avery (Procrit) 20,000 unit IV MWF [facility] Last Admin: 02/22/17 20:40 Dose: 20,000 unit Heparin Sodium (Porcine) (Heparin) 5,000 units SC Q12 [facility] PRN Reason: Protocol Last Admin: 02/24/17 22:00 Dose: 5,000 units Home Med (Vorapaxar Sulfate [Zontivity]) 2.08 mg PO DAILY [facility] Cefepime HCl 1 gm/ Sodium (Chloride) 100 mls @ 100 mls/hr IVPB DAILY [facility] Last Admin: 02/24/17 08:41 Dose: 100 mls/hr Vancomycin HCl 500 mg/ Sodium (Chloride) 100 mls @ 100 mls/hr IVPB MWF [facility] Insulin Human Regular (Humulin R) 0 units SC ACCU-CHECK [facility] PRN Reason: Protocol Last Admin: 02/25/17 08:06 Dose: 4 u Lactulose (Enulose) 20 gm PO DAILY PRN PRN Reason: Constipation Last Admin: 02/23/17 10:10 Dose: 20 gm Nifedipine (Procardia Xl) 60 mg PO DAILY [facility] Last Admin: 02/24/17 08:41 Dose: 60 mg Oxycodone/Acetaminophen (Percocet 5/325 Mg Tab) 2 tab PO Q4 PRN PRN Reason: Pain, severe (8-10) Stop: 02/25/17 20:42 Last Admin: 02/25/17 08:28 Dose: 2 tab Pantoprazole Sodium (Protonix Ec Tab) 40 mg PO DAILY [facility] Last Admin: 02/24/17 08:43 Dose: 40 mg Sevelamer HCl (Renagel) 2,400 mg PO TID [facility] Last Admin: 02/24/17 16:01 Dose: 2,400 mg Sitagliptin Phosphate (Januvia) 50 mg PO DAILY [facility] Last Admin: 02/24/17 08:43 Dose: 50 mg Tramadol HCl (Ultram) 50 mg PO Q6 PRN PRN Reason: Pain, moderate (4-7) Last Admin: 02/22/17 20:48 Dose: 50 mg Vitamin B Complex/Vit C/Folic Acid (Nephro-Niko) 1 tab PO DAILY [facility] Last Admin: 02/24/17 08:43 Dose: 1 tab - Labs Labs: 02/25/17 08:30 02/25/17 08:30 PT 16.7 Seconds (9.8-13.1) H 02/22/17 06:50 INR 1.5 (0.9-1.2) H 02/22/17 06:50 APTT 29.0 Seconds (25.6-37.1) 02/22/17 06:50 Assessment and Plan (1) Wound infection Status: Acute (2) CKD (chronic kidney disease) stage 5, GFR less than 15 ml/min Status: Acute
[2017-02-25] MEDS: Cefepime 1 GM in Sodium Chloride 0.9% 100 ML IVPB SCH (11:52)
[2017-02-25] MEDS ORDERED: Sodium Chloride 3% for Inhalation 4 ML VIAL.NEB IH PRN (12:57)
[2017-02-25] MEDS: NIFEdipine 60 mg ER Tab PO SCH (15:47)
[2017-02-25] MEDS: Epoetin Alfa 20000 UNIT/ML Inj IV SCH (15:48)
[2017-02-25] MEDS: Pantoprazole 40 mg EC Tab PO SCH (15:50)
--- NOTE | 2017-02-25 19:43 | CP.PCM.CON ---
History of Present Illness - History of Present Illness History of Present Illness: I was asked to see patient by Dr. Lebron. Patient is a 76 year old male with PMH HTN, ischemic cardiomyopathy, PAD s/p atherectomy and drug coated balloon angioplasty of the R SFA who presents after loss of IV access. The patient was transferred to a longterm facility and treated with antibiotics. The patient lost access, and was brought back. His family is at the bedside. He has intermittent discomfort of the foot. Review of Systems - Constitutional Constitutional: absent: As Per HPI, Anorexia, Chills, Daytime Sleepiness, Excessive Sweating, Fatigue, Fever, Frequent Falls, Headache, Increased Appetite , Lethargy, Malaise, Night Sweats, Snoring, Sleep Apnea, Weight Gain, Weight Loss, Weakness, Other - EENT Eyes: absent: As Per HPI, Blind Spots, Blurred Vision, Change in Vision, Decreased Night Vision, Diplopia, Discharge, Dry Eye, Exophthalmos, Floaters, Irritation, Itchy Eyes, Loss of Peripheral Vision, Pain, Photophobia, Requires Corrective Lenses, Sees Flashes, Spots in Vision, Tunnel Vision, Other Visual Disturbances, Loss of Vision, Other Ears: absent: As Per HPI, Decreased Hearing, Ear Discharge, Ear Pain, Tinnitus, Abnormal Hearing, Disequilibrium, Dizziness, Other Nose/Mouth/Throat: absent: As Per HPI, Epistaxis, Nasal Congestion, Nasal Discharge, Nasal Obstruction, Nasal Trauma, Nose Pain, Post Nasal Drip, Sinus Pain, Sinus Pressure, Bleeding Gums, Change in Voice, Dental Pain, Dry Mouth, Dysphagia, Halitosis, Hoarsness, Lip Swelling, Mouth Lesions, Mouth Pain, Odynophagia, Sore Throat, Throat Swelling, Tongue Swelling, Facial Pain, Neck Pain, Neck Mass, Other - Cardiovascular Cardiovascular: absent: As Per HPI, Acrocyanosis, Chest Pain, Chest Pain at Rest , Chest Pain with Activity, Claudication, Diaphoresis, Dyspnea, Dyspnea on Exertion, Edema, Irregular Heart Rhythm, Pain Radiating to Arm/Neck/Jaw, Leg Edema, Leg Ulcers, Lightheadedness, Orthopnea, Palpitations, Paroxysmal Nocturnal Dyspnea, Pedal Edema, Radiating Pain, Rapid Heart Rate, Slow Heart Rate, Syncope, Other - Respiratory Respiratory: absent: As Per HPI, Cough, Dyspnea, Hemoptysis, Dyspnea on Exertion , Wheezing, Snoring, Stridor, Pain on Inspiration, Chest Congestion, Excessive Mucous Production, Change in Mucous Color, Pain with Coughing, Other - Gastrointestinal Gastrointestinal: absent: As Per HPI, Abdominal Pain, Belching, Bloating, Change in Bowel Habits, Change in Stool Character, Coffee Ground Emesis, Constipation, Cramping, Diarrhea, Dyspepsia, Dysphagia, Early Satiety, Excessive Flatus, Fecal Incontinence, Heartburn, Hematemesis, Hematochezia, Loose Stools, Melena, Nausea, Odynophagia, Temesmus, Vomiting, Other - Musculoskeletal Musculoskeletal: Radiating Pain into Limb - Integumentary Integumentary: Change in Nails - Neurological Neurological: absent: As Per HPI, Abnormal Gait, Abnormal Hearing, Abnormal Movements, Abnormal Speech, Behavioral Changes, Burning Sensations, Confusion, Convulsions, Disequilibrium, Dizziness, Numbness, Focal Weakness, Frequent Falls , Headaches, Lack of Coordination, Loss of Vision, Memory Loss, Paresthesias, Radicular Pain, Restless Legs, Sensory Deficit, Syncope, Tingling, Tremor, Vertigo, Weakness, Other Visual Disturbances, Other - Psychiatric Psychiatric: absent: As Per HPI, Abnormal Sleep Pattern, Anhedonia, Anxiety, Auditory Hallucinations, Behavioral Changes, Change in Appetite, Change in Libido, Confusion, Depression, Difficulty Concentrating, Hallucinations, Homicidal Ideation, Hopelessness, Irritability, Memory Loss, Mood Swings, Panic Attacks, Paranoia, Suicidal Ideation, Visual Hallucinations, Tactile Hallucinations, Other - Endocrine Endocrine: absent: As Per HPI, Change in Body Appearance, Change in Libido, Cold Intolorance, Deepening of Voice, Excessive Sweating, Fatigue, Flushing, Heat Intolorance, Increase in Ring/Shoe/Hat Size, Palpitations, Polydipsia, Polyphagia, Polyuria, Other - Hematologic/Lymphatic Hematologic: absent: As Per HPI, Easy Bleeding, Easy Bruising, Lymphadenopathy, Other Past Patient History - Infectious Disease Hx of Infectious Diseases: None - Past Medical History & Family History Past Medical History?: Yes - Past Social History Smoking Status: Never Smoked - CARDIAC Hx Cardiac Disorders: Yes Hx Atrial Fibrillation: Yes Hx Congestive Heart Failure: Yes Hx Hypercholesterolemia: Yes Hx Hypertension: Yes Hx Pacemaker: Yes - PULMONARY Hx Respiratory Disorders: Yes (pleural effusion) - HEENT Hx HEENT Problems: No - RENAL Hx Chronic Kidney Disease: Yes (ESRD) Type of Dialysis Access: right av fistula Date of Last Dialysis Treatment: 02/20/17 - ENDOCRINE/METABOLIC Hx Endocrine Disorders: Yes - HEMATOLOGICAL/ONCOLOGICAL Hx Blood Disorders: No - INTEGUMENTARY Hx Dermatological Problems: No - MUSCULOSKELETAL/RHEUMATOLOGICAL Hx Falls: Yes - GASTROINTESTINAL Hx Gastrointestinal Disorders: No - GENITOURINARY/GYNECOLOGICAL Hx Genitourinary Disorders: No - PSYCHIATRIC Hx Substance Use: No - SURGICAL HISTORY Hx Coronary Artery Bypass Graft: Yes Hx Coronary Stent: Yes - ANESTHESIA Hx Anesthesia: Yes Hx Anesthesia Reactions: No Hx Malignant Hyperthermia: No Meds Allergies/Adverse Reactions: Allergies Allergy/AdvReac Type Severity Reaction Status Date / Time No Known Allergies Allergy Verified 02/06/17 13:47 - Medications Medications: Current Medications Aspirin (Aspirin Chewable) 81 mg PO DAILY [facility] Last Admin: 02/25/17 10:49 Dose: 81 mg Atorvastatin Calcium (Lipitor) 10 mg PO DAILY [facility] Last Admin: 02/25/17 10:49 Dose: 10 mg Carvedilol (Coreg) 3.125 mg PO Q12 [facility] Last Admin: 02/25/17 10:49 Dose: 3.125 mg Clopidogrel Bisulfate (Plavix) 75 mg PO DAILY [facility] Last Admin: 02/25/17 10:50 Dose: 75 mg Docusate Sodium (Colace) 100 mg PO BID [facility] Last Admin: 02/25/17 16:53 Dose: 100 mg Epoetin Avery (Procrit) 20,000 unit IV MWF [facility] Last Admin: 02/25/17 15:48 Dose: 20,000 unit Heparin Sodium (Porcine) (Heparin) 5,000 units SC Q12 [facility] PRN Reason: Protocol Last Admin: 02/25/17 11:51 Dose: 5,000 units Home Med (Vorapaxar Sulfate [Zontivity]) 2.08 mg PO DAILY [facility] Cefepime HCl 1 gm/ Sodium (Chloride) 100 mls @ 100 mls/hr IVPB DAILY [facility] Last Admin: 02/25/17 11:52 Dose: 100 mls/hr Vancomycin HCl 500 mg/ Sodium (Chloride) 100 mls @ 100 mls/hr IVPB MWF [facility] Last Admin: 02/25/17 15:49 Dose: 100 mls/hr Insulin Human Regular (Humulin R) 0 units SC ACCU-CHECK [facility] PRN Reason: Protocol Last Admin: 02/25/17 12:00 Dose: Not Given Lactulose (Enulose) 20 gm PO DAILY PRN PRN Reason: Constipation Last Admin: 02/23/17 10:10 Dose: 20 gm Nifedipine (Procardia Xl) 60 mg PO DAILY [facility] Last Admin: 02/25/17 15:47 Dose: 60 mg Oxycodone/Acetaminophen (Percocet 5/325 Mg Tab) 2 tab PO Q4 PRN PRN Reason: Pain, severe (8-10) Stop: 02/25/17 20:42 Last Admin: 02/25/17 08:28 Dose: 2 tab Pantoprazole Sodium (Protonix Ec Tab) 40 mg PO DAILY [facility] Last Admin: 02/25/17 15:50 Dose: 40 mg Sevelamer HCl (Renagel) 2,400 mg PO TID [facility] Last Admin: 02/25/17 16:53 Dose: 2,400 mg Sitagliptin Phosphate (Januvia) 50 mg PO DAILY [facility] Last Admin: 02/25/17 10:00 Dose: 50 mg Tramadol HCl (Ultram) 50 mg PO Q6 PRN PRN Reason: Pain, moderate (4-7) Last Admin: 02/22/17 20:48 Dose: 50 mg Vitamin B Complex/Vit C/Folic Acid (Nephro-Niko) 1 tab PO DAILY [facility] Last Admin: 02/25/17 10:50 Dose: 1 tab Physical Exam - Constitutional Appears: Non-toxic - Head Exam Head Exam: NORMAL INSPECTION - Eye Exam Eye Exam: Normal appearance - ENT Exam ENT Exam: Mucous Membranes Moist - Neck Exam Neck exam: Positive for: Full Rom - Respiratory Exam Respiratory Exam: NORMAL BREATHING PATTERN - Cardiovascular Exam Cardiovascular Exam: REGULAR RHYTHM - GI/Abdominal Exam GI & Abdominal Exam: Normal Bowel Sounds - Rectal Exam Rectal Exam: Deferred - Extremities Exam Additional comments: well perfused - Back Exam Back exam: NORMAL INSPECTION - Neurological Exam Neurological exam: Alert, Oriented x3 - Psychiatric Exam Psychiatric exam: Normal Affect - Skin Skin Exam: Normal Color Results - Vital Signs Recent Vital Signs: Last Vital Signs Temp 98.5 F 02/25/17 16:08 Pulse 96 H 02/25/17 16:08 Resp 20 02/25/17 16:08 BP 111/59 L 02/25/17 16:08 Pulse Ox 95 02/25/17 16:08 - Labs Result Diagrams: 02/25/17 08:30 02/25/17 08:30 Labs: Laboratory Results - last 24 hr 02/24/17 02/25/17 02/25/17 21:09 05:32 08:30 WBC 15.2 H RBC 4.26 L Hgb 8.7 L Hct 29.8 L MCV 69.9 L MCH 20.4 L MCHC 29.1 L RDW 21.2 H Plt Count 366 MPV 8.5 Neut % (Auto) 83.8 H Lymph % (Auto) 7.[address] % (Auto) 6.9 Eos % (Auto) 1.0 Baso % (Auto) 1.0 Neut # 12.7 H Lymph # 1.1 [place] # 1.0 H Eos # 0.2 Baso # 0.2 Sodium Potassium Chloride Carbon Dioxide Anion Gap BUN Creatinine Est GFR ( Amer) Est GFR (Non-Af Amer) POC Glucose (mg/dL) 165 H 280 H Random Glucose Calcium Total Bilirubin AST ALT Alkaline Phosphatase Total Protein Albumin Globulin Albumin/Globulin Ratio Hep Bs Antigen Hep Bs Antibody Hep B Core IgM Ab 02/25/17 02/25/17 02/25/17 08:30 10:00 10:00 WBC RBC Hgb Hct MCV MCH MCHC RDW Plt Count MPV Neut % (Auto) Lymph % (Auto) [place] % (Auto) Eos % (Auto) Baso % (Auto) Neut # Lymph # [place] # Eos # Baso # Sodium 138 Potassium 5.3 H Chloride 98 Carbon Dioxide 25 Anion Gap 20 BUN 56 H Creatinine 7.2 H Est GFR ( Amer) 9 Est GFR (Non-Af Amer) 7 POC Glucose (mg/dL) Random Glucose 190 H Calcium 9.8 Total Bilirubin 0.6 AST 23 ALT 25 Alkaline Phosphatase 128 H Total Protein 8.3 H Albumin 3.9 Globulin 4.5 H Albumin/Globulin Ratio 0.9 L Hep Bs Antigen Negative Hep Bs Antibody Hep B Core IgM Ab Negative 02/25/17 02/25/17 02/25/17 10:00 11:33 15:48 WBC RBC Hgb Hct MCV MCH MCHC RDW Plt Count MPV Neut % (Auto) Lymph % (Auto) [place] % (Auto) Eos % (Auto) Baso % (Auto) Neut # Lymph # [place] # Eos # Baso # Sodium Potassium Chloride Carbon Dioxide Anion Gap BUN Creatinine Est GFR ( Amer) Est GFR (Non-Af Amer) POC Glucose (mg/dL) 83 204 H Random Glucose Calcium Total Bilirubin AST ALT Alkaline Phosphatase Total Protein Albumin Globulin Albumin/Globulin Ratio Hep Bs Antigen Hep Bs Antibody Positive Hep B Core IgM Ab - EKG Data EKG Interpreted by: Myself Assessment & Plan (1) PAD (peripheral artery disease) Assessment and Plan: foot appears to be healing well. continue antibiotics. recommend antiplatelet therapy. Status: Acute (2) CHF (congestive heart failure) Assessment and Plan: chronic systolic dysfunction. appears euvolemic Status: Chronic (3) Diabetes Assessment and Plan: importance of blood glucose control was discussed. Status: Chronic Priority: High (4) ESRD (end stage renal disease) on dialysis Assessment and Plan: as per Dr. Frost Status: Chronic
[2017-02-26] MEDS: Insulin Regular 100 units/ml SC SCH ×4 (07:19→22:38)
[2017-02-26 07:27] LABS: MEAN CELL VOLUME 69.2 fl (80.0-94.0); MEAN CORPUSCULAR HEMOGLOBIN 20.8 pg (27.0-31.0); RBC 3.87 Mil/uL (4.40-5.90); RED CELL DISTRIBUTION WIDTH 21.6 % (11.5-14.5); WHITE BLOOD COUNT 12.8 K/uL (4.8-10.8)
[2017-02-26 07:37] LABS: CALCIUM 9.2 mg/dL (8.4-10.2)
[2017-02-26] MEDS: Cefepime 1 GM in Sodium Chloride 0.9% 100 ML IVPB SCH (08:18)
[2017-02-26] MEDS: Multivitamin Vitamin B Complex (Nephro-Vite) Tab PO SCH (08:20)
[2017-02-26] MEDS: NIFEdipine 60 mg ER Tab PO SCH (08:20)
[2017-02-26] MEDS: Pantoprazole 40 mg EC Tab PO SCH (08:22)
--- NOTE | 2017-02-26 08:31 | CP.PCM.PN ---
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 Patient is resting comfortably, AAOx3 and NAD. Patient denies any acute overnight events. Patient denies pain to his right foot. Patient denies N/ V/F/D/SOB/CP. No other pedal complaints at this time. Objective - Vital Signs/Intake and Output Vital Signs (last 24 hours): Temp Pulse Resp BP Pulse Ox 98.8 F 80 20 107/56 L 93 L 02/26/17 00:06 02/26/17 08:21 02/26/17 00:06 02/26/17 08:21 02/26/17 00:06 - Medications Medications: Current Medications Aspirin (Aspirin Chewable) 81 mg PO DAILY [facility] Last Admin: 02/26/17 08:21 Dose: 81 mg Atorvastatin Calcium (Lipitor) 10 mg PO DAILY [facility] Last Admin: 02/26/17 08:21 Dose: 10 mg Carvedilol (Coreg) 3.125 mg PO Q12 [facility] Last Admin: 02/26/17 08:21 Dose: Not Given Clopidogrel Bisulfate (Plavix) 75 mg PO DAILY [facility] Last Admin: 02/26/17 08:20 Dose: 75 mg Docusate Sodium (Colace) 100 mg PO BID [facility] Last Admin: 02/26/17 08:19 Dose: 100 mg Epoetin Avery (Procrit) 20,000 unit IV MWF [facility] Last Admin: 02/25/17 15:48 Dose: 20,000 unit Heparin Sodium (Porcine) (Heparin) 5,000 units SC Q12 [facility] PRN Reason: Protocol Last Admin: 02/26/17 08:22 Dose: 5,000 units Home Med (Vorapaxar Sulfate [Zontivity]) 2.08 mg PO DAILY [facility] Cefepime HCl 1 gm/ Sodium (Chloride) 100 mls @ 100 mls/hr IVPB DAILY [facility] Last Admin: 02/26/17 08:18 Dose: 100 mls/hr Vancomycin HCl 500 mg/ Sodium (Chloride) 100 mls @ 100 mls/hr IVPB MWF [facility] Last Admin: 02/25/17 15:49 Dose: 100 mls/hr Insulin Human Regular (Humulin R) 0 units SC ACCU-CHECK [facility] PRN Reason: Protocol Last Admin: 02/26/17 07:19 Dose: 4 u Lactulose (Enulose) 20 gm PO DAILY PRN PRN Reason: Constipation Last Admin: 02/23/17 10:10 Dose: 20 gm Nifedipine (Procardia Xl) 60 mg PO DAILY [facility] Last Admin: 02/26/17 08:20 Dose: Not Given Pantoprazole Sodium (Protonix Ec Tab) 40 mg PO DAILY [facility] Last Admin: 02/26/17 08:22 Dose: 40 mg Sevelamer HCl (Renagel) 2,400 mg PO TID [facility] Last Admin: 02/26/17 08:19 Dose: 2,400 mg Sitagliptin Phosphate (Januvia) 50 mg PO DAILY [facility] Last Admin: 02/26/17 08:22 Dose: 50 mg Tramadol HCl (Ultram) 50 mg PO Q6 PRN PRN Reason: Pain, moderate (4-7) Last Admin: 02/25/17 21:45 Dose: 50 mg Vitamin B Complex/Vit C/Folic Acid (Nephro-Niko) 1 tab PO DAILY [facility] Last Admin: 02/26/17 08:20 Dose: 1 tab - Labs Labs: 02/26/17 05:40 02/26/17 05:40 PT 16.7 Seconds (9.8-13.1) H 02/22/17 06:50 INR 1.5 (0.9-1.2) H 02/22/17 06:50 APTT 29.0 Seconds (25.6-37.1) 02/22/17 06:50 - Constitutional Appears: Well, Non-toxic, No Acute Distress - Extremities Exam Additional comments: Right lower extremity focused physical exam: VASC: DP/PT pulses are palpable 2/4, SLACKMAN: < 3 sec x 4, Temperature gradient: warm to cool DERM: Surgical site is well coapted and sutures are intact, no dehiscence, no active drainage, no malodor, no erythema noted, de-roofed bullae noted on the plantar medial arch with a granular base, no clinical suspicion of infection noted NEURO: grossly intact ORTHO: No pain on palpation noted to surgical site - Neurological Exam Neurological Exam: Alert, Awake, Oriented x3 - Psychiatric Exam Psychiatric exam: Normal Affect, Normal Mood Assessment and Plan - Assessment and Plan (Free Text) Assessment: 76 year old male POD#10 s/p R 2nd digit amputation, non-infected Plan: Patient was seen and evaluated with attending, Dr. Lebron Chart, labs and vitals reviewed: afebrile, WBC increased at 12.8 however trending downwards from yesterday (02/25/17 @ 15.2) Wound culture- pending. Surgical incision and bullae were dressed with betadine soaked adaptic, gauze, DSD, Kerlix, and light BARI. Pt is WBAT to right heel with surgical shoe and full WBAT to left lower extremity Continue abx per ID (cefepime and vancomycin per Dr. Muniz) Patient is stable from podiatry standpoint Podiatry will continue to follow while in house
--- NOTE | 2017-02-26 08:42 | PQF ANEMIA ---
This form is a permanent part of the medical record 02/26/17 Dr Frost, Would you please clarify the etiology of the anemia. Documentation of " continue EPO for the anemia ". Clarification of your documentation is requested to better reflect the severity of illness and intensity of treatment of your patient. Indicators present [x] Anemia [] Drop in H&H from []_post surgery__ to []___ [] Hypotension [] GI Bleed [] Transfusion(s) [] Acute bleed other sites [] Tachycardia [] Surgical Procedure Blood Loss (expected not a complication) Other:[] Location in the medical record that reflects the above clinical findings: [] Treatment Provided: [] PHYSICIAN'S RESPONSE Based on your medical judgment of the clinical indicators outlined above, are you treating this patient for a known or suspected: [] Acute blood loss anemia [] Chronic blood loss anemia [] Acute on Chronic blood loss anemia [] Anemia due to malignancy [] Anemia due to chemotherapy or radiation therapy [] Anemia due to CKD [] Anemia of Chronic Disease, please specify: []__ESRD____ [] Other, please indicate type of anemia []____ [] If Unable to Determine, please check the box, sign and date. Present On Admission (POA) Indicator: [] Present at the time of admission [] Not present at the time of admission [] Clinically Undetermined In responding to this query, please exercise your independent professional judgment. The fact that a question is asked does not imply that any particular answer is desired or expected. Thank you for your clarification on this documentation. If you have any questions please call:extension [phone] * Thank you, Luna Walker RN CDMP MTDD
--- NOTE | 2017-02-26 09:07 | CP.PCM.HP ---
History of Present Illness - History of Present Illness History of Present Illness: This is a 76 y/o male readmitted due to malfunctioning triple lumen cath for iv antibiotics. He was sent to subacute rehab for cefepime IV antibiotic but had some problems with the iv cath hence trasferred back. He is on his 6th day post amputation of 2nd right digit, He is also being treated for multifocal pneumonia he also receives hemodialysis has a hx of CAD HTN CKD, A fib DM 2 Present on Admission - Present on Admission Any Indicators Present on Admission: No History of DVT/PE: No History of Uncontrolled Diabetes: Yes Urinary Catheter: No Decubitus Ulcer Present: No Review of Systems - Respiratory Respiratory: Cough, Dyspnea on Exertion Past Patient History - Infectious Disease Hx of Infectious Diseases: None - Past Medical History & Family History Past Medical History?: Yes - Past Social History Smoking Status: Never Smoked - CARDIAC Hx Cardiac Disorders: Yes Hx Atrial Fibrillation: Yes Hx Congestive Heart Failure: Yes Hx Hypercholesterolemia: Yes Hx Hypertension: Yes Hx Pacemaker: Yes - PULMONARY Hx Respiratory Disorders: Yes (pleural effusion) - HEENT Hx HEENT Problems: No - RENAL Hx Chronic Kidney Disease: Yes (ESRD) Type of Dialysis Access: right av fistula Date of Last Dialysis Treatment: 02/20/17 - ENDOCRINE/METABOLIC Hx Endocrine Disorders: Yes - HEMATOLOGICAL/ONCOLOGICAL Hx Blood Disorders: No - INTEGUMENTARY Hx Dermatological Problems: No - MUSCULOSKELETAL/RHEUMATOLOGICAL Hx Falls: Yes - GASTROINTESTINAL Hx Gastrointestinal Disorders: No - GENITOURINARY/GYNECOLOGICAL Hx Genitourinary Disorders: No - PSYCHIATRIC Hx Substance Use: No - SURGICAL HISTORY Hx Coronary Artery Bypass Graft: Yes Hx Coronary Stent: Yes - ANESTHESIA Hx Anesthesia: Yes Hx Anesthesia Reactions: No Hx Malignant Hyperthermia: No Meds Allergies/Adverse Reactions: Allergies Allergy/AdvReac Type Severity Reaction Status Date / Time No Known Allergies Allergy Verified 02/06/17 13:47 Physical Exam - Eye Exam Eye Exam: Normal appearance - ENT Exam ENT Exam: Mucous Membranes Moist - Respiratory Exam Respiratory Exam: Decreased Breath Sounds, Rhonchi - Cardiovascular Exam Cardiovascular Exam: Irregular Rhythm - Neurological Exam Neurological exam: CN II-XII Intact - Psychiatric Exam Psychiatric exam: Anxious, Normal Affect Results - Vital Signs Recent Vital Signs: Last Vital Signs Temp 98.8 F 02/26/17 00:06 Pulse 80 02/26/17 08:21 Resp 20 02/26/17 00:06 BP 107/56 L 02/26/17 08:21 Pulse Ox 93 L 02/26/17 00:06 - Labs Result Diagrams: 02/26/17 05:40 02/26/17 05:40 Labs: Laboratory Results - last 24 hr 02/25/17 02/25/17 02/25/17 08:30 08:30 10:00 WBC 15.2 H RBC 4.26 L Hgb 8.7 L Hct 29.8 L MCV 69.9 L MCH 20.4 L MCHC 29.1 L RDW 21.2 H Plt Count 366 MPV 8.5 Neut % (Auto) 83.8 H Lymph % (Auto) 7.[address] [place] % (Auto) 6.9 Eos % (Auto) 1.0 Baso % (Auto) 1.0 Neut # 12.7 H Lymph # 1.1 [place] # 1.0 H Eos # 0.2 Baso # 0.2 Sodium 138 Potassium 5.3 H Chloride 98 Carbon Dioxide 25 Anion Gap 20 BUN 56 H Creatinine 7.2 H Est GFR ( Amer) 9 Est GFR (Non-Af Amer) 7 POC Glucose (mg/dL) Random Glucose 190 H Calcium 9.8 Total Bilirubin 0.6 AST 23 ALT 25 Alkaline Phosphatase 128 H Total Protein 8.3 H Albumin 3.9 Globulin 4.5 H Albumin/Globulin Ratio 0.9 L Hep Bs Antigen Hep Bs Antibody Hep B Core IgM Ab Negative 02/25/17 02/25/17 02/25/17 10:00 10:00 11:33 WBC RBC Hgb Hct MCV MCH MCHC RDW Plt Count MPV Neut % (Auto) Lymph % (Auto) [place] % (Auto) Eos % (Auto) Baso % (Auto) Neut # Lymph # [place] # Eos # Baso # Sodium Potassium Chloride Carbon Dioxide Anion Gap BUN Creatinine Est GFR ( Amer) Est GFR (Non-Af Amer) POC Glucose (mg/dL) 83 Random Glucose Calcium Total Bilirubin AST ALT Alkaline Phosphatase Total Protein Albumin Globulin Albumin/Globulin Ratio Hep Bs Antigen Negative Hep Bs Antibody Positive Hep B Core IgM Ab 02/25/17 02/25/17 02/26/17 15:48 21:22 05:40 WBC 12.8 H RBC 3.87 L Hgb 8.0 L Hct 26.8 L MCV 69.2 L MCH 20.8 L MCHC 30.0 L RDW 21.6 H Plt Count 335 MPV Neut % (Auto) Lymph % (Auto) [place] % (Auto) Eos % (Auto) Baso % (Auto) Neut # Lymph # [place] # Eos # Baso # Sodium Potassium Chloride Carbon Dioxide Anion Gap BUN Creatinine Est GFR ( Amer) Est GFR (Non-Af Amer) POC Glucose (mg/dL) 204 H 263 H Random Glucose Calcium Total Bilirubin AST ALT Alkaline Phosphatase Total Protein Albumin Globulin Albumin/Globulin Ratio Hep Bs Antigen Hep Bs Antibody Hep B Core IgM Ab 02/26/17 02/26/17 05:40 05:46 WBC RBC Hgb Hct MCV MCH MCHC RDW Plt Count MPV Neut % (Auto) Lymph % (Auto) [place] % (Auto) Eos % (Auto) Baso % (Auto) Neut # Lymph # [place] # Eos # Baso # Sodium 137 Potassium 4.3 Chloride 97 L Carbon Dioxide 26 Anion Gap 18 BUN 35 H Creatinine 4.6 H Est GFR ( Amer) 15 Est GFR (Non-Af Amer) 12 POC Glucose (mg/dL) 274 H Random Glucose 262 H Calcium 9.2 Total Bilirubin AST ALT Alkaline Phosphatase Total Protein Albumin Globulin Albumin/Globulin Ratio Hep Bs Antigen Hep Bs Antibody Hep B Core IgM Ab Assessment & Plan (1) CAD (coronary artery disease) Status: Acute (2) CKD (chronic kidney disease) stage 5, GFR less than 15 ml/min Status: Acute (3) Pneumonia Status: Acute (4) PAD (peripheral artery disease) Status: Acute (5) Respiratory insufficiency Status: Acute (6) CHF (congestive heart failure) Status: Chronic - Assessment and Plan (Free Text) Plan: Cont antibiotics contmeds iv antibiotics ID consult renal podiatry follow up
--- NOTE | 2017-02-26 09:17 | CP.PCM.PN ---
Subjective - Date & Time of Evaluation Date of Evaluation: 02/26/17 Time of Evaluation: :17 - Subjective Subjective: Patient is doing a lot better Has no chest pain or SOB. Has no fever. Objective - Vital Signs/Intake and Output Vital Signs (last 24 hours): Temp Pulse Resp BP Pulse Ox 98.8 F 80 20 107/56 L 93 L 02/26/17 00:06 02/26/17 08:21 02/26/17 00:06 02/26/17 08:21 02/26/17 00:06 - Medications Medications: Current Medications Aspirin (Aspirin Chewable) 81 mg PO DAILY [facility] Last Admin: 02/26/17 08:21 Dose: 81 mg Atorvastatin Calcium (Lipitor) 10 mg PO DAILY [facility] Last Admin: 02/26/17 08:21 Dose: 10 mg Carvedilol (Coreg) 3.125 mg PO Q12 [facility] Last Admin: 02/26/17 08:21 Dose: Not Given Clopidogrel Bisulfate (Plavix) 75 mg PO DAILY [facility] Last Admin: 02/26/17 08:20 Dose: 75 mg Docusate Sodium (Colace) 100 mg PO BID [facility] Last Admin: 02/26/17 08:19 Dose: 100 mg Epoetin Avery (Procrit) 20,000 unit IV MWF [facility] Last Admin: 02/25/17 15:48 Dose: 20,000 unit Heparin Sodium (Porcine) (Heparin) 5,000 units SC Q12 [facility] PRN Reason: Protocol Last Admin: 02/26/17 08:22 Dose: 5,000 units Home Med (Vorapaxar Sulfate [Zontivity]) 2.08 mg PO DAILY [facility] Cefepime HCl 1 gm/ Sodium (Chloride) 100 mls @ 100 mls/hr IVPB DAILY [facility] Last Admin: 02/26/17 08:18 Dose: 100 mls/hr Vancomycin HCl 500 mg/ Sodium (Chloride) 100 mls @ 100 mls/hr IVPB MWF [facility] Last Admin: 02/25/17 15:49 Dose: 100 mls/hr Insulin Human Regular (Humulin R) 0 units SC ACCU-CHECK [facility] PRN Reason: Protocol Last Admin: 02/26/17 07:19 Dose: 4 u Lactulose (Enulose) 20 gm PO DAILY PRN PRN Reason: Constipation Last Admin: 02/23/17 10:10 Dose: 20 gm Nifedipine (Procardia Xl) 60 mg PO DAILY [facility] Last Admin: 02/26/17 08:20 Dose: Not Given Pantoprazole Sodium (Protonix Ec Tab) 40 mg PO DAILY [facility] Last Admin: 02/26/17 08:22 Dose: 40 mg Sevelamer HCl (Renagel) 2,400 mg PO TID [facility] Last Admin: 02/26/17 08:19 Dose: 2,400 mg Sitagliptin Phosphate (Januvia) 50 mg PO DAILY [facility] Last Admin: 02/26/17 08:22 Dose: 50 mg Tramadol HCl (Ultram) 50 mg PO Q6 PRN PRN Reason: Pain, moderate (4-7) Last Admin: 02/25/17 21:45 Dose: 50 mg Vitamin B Complex/Vit C/Folic Acid (Nephro-Niko) 1 tab PO DAILY [facility] Last Admin: 02/26/17 08:20 Dose: 1 tab - Labs Labs: 02/26/17 05:40 02/26/17 05:40 PT 16.7 Seconds (9.8-13.1) H 02/22/17 06:50 INR 1.5 (0.9-1.2) H 02/22/17 06:50 APTT 29.0 Seconds (25.6-37.1) 02/22/17 06:50 - Eye Exam Eye Exam: Normal appearance - ENT Exam ENT Exam: Mucous Membranes Moist - Respiratory Exam Respiratory Exam: Decreased Breath Sounds - Cardiovascular Exam Cardiovascular Exam: REGULAR RHYTHM - GI/Abdominal Exam GI & Abdominal Exam: Normal Bowel Sounds - Neurological Exam Neurological Exam: Oriented x3 - Psychiatric Exam Psychiatric exam: Normal Mood Assessment and Plan (1) CAD (coronary artery disease) Status: Acute (2) CKD (chronic kidney disease) stage 5, GFR less than 15 ml/min Status: Acute (3) Pneumonia Status: Acute (4) PAD (peripheral artery disease) Status: Acute (5) Respiratory insufficiency Status: Acute (6) CHF (congestive heart failure) Status: Chronic (7) Pleural effusion Status: Acute - Assessment and Plan (Free Text) Plan: Cont meds cont tx HD follow up pulmonary
--- NOTE | 2017-02-26 09:30 | CP.PCM.PN ---
Subjective - Date & Time of Evaluation Date of Evaluation: 02/23/17 Time of Evaluation: 10:00 - Subjective Subjective: Patient has o fever Has some pain on the amputation site Has no SOB No chest pain Objective - Vital Signs/Intake and Output Vital Signs (last 24 hours): Temp Pulse Resp BP Pulse Ox 98.8 F 80 20 107/56 L 93 L 02/26/17 00:06 02/26/17 08:21 02/26/17 00:06 02/26/17 08:21 02/26/17 00:06 - Medications Medications: Current Medications Aspirin (Aspirin Chewable) 81 mg PO DAILY [facility] Last Admin: 02/26/17 08:21 Dose: 81 mg Atorvastatin Calcium (Lipitor) 10 mg PO DAILY [facility] Last Admin: 02/26/17 08:21 Dose: 10 mg Carvedilol (Coreg) 3.125 mg PO Q12 [facility] Last Admin: 02/26/17 08:21 Dose: Not Given Clopidogrel Bisulfate (Plavix) 75 mg PO DAILY [facility] Last Admin: 02/26/17 08:20 Dose: 75 mg Docusate Sodium (Colace) 100 mg PO BID [facility] Last Admin: 02/26/17 08:19 Dose: 100 mg Epoetin Avery (Procrit) 20,000 unit IV MWF [facility] Last Admin: 02/25/17 15:48 Dose: 20,000 unit Heparin Sodium (Porcine) (Heparin) 5,000 units SC Q12 [facility] PRN Reason: Protocol Last Admin: 02/26/17 08:22 Dose: 5,000 units Home Med (Vorapaxar Sulfate [Zontivity]) 2.08 mg PO DAILY [facility] Cefepime HCl 1 gm/ Sodium (Chloride) 100 mls @ 100 mls/hr IVPB DAILY [facility] Last Admin: 02/26/17 08:18 Dose: 100 mls/hr Vancomycin HCl 500 mg/ Sodium (Chloride) 100 mls @ 100 mls/hr IVPB MWF [facility] Last Admin: 02/25/17 15:49 Dose: 100 mls/hr Insulin Human Regular (Humulin R) 0 units SC ACCU-CHECK [facility] PRN Reason: Protocol Last Admin: 02/26/17 07:19 Dose: 4 u Lactulose (Enulose) 20 gm PO DAILY PRN PRN Reason: Constipation Last Admin: 02/23/17 10:10 Dose: 20 gm Nifedipine (Procardia Xl) 60 mg PO DAILY [facility] Last Admin: 02/26/17 08:20 Dose: Not Given Pantoprazole Sodium (Protonix Ec Tab) 40 mg PO DAILY [facility] Last Admin: 02/26/17 08:22 Dose: 40 mg Sevelamer HCl (Renagel) 2,400 mg PO TID [facility] Last Admin: 02/26/17 08:19 Dose: 2,400 mg Sitagliptin Phosphate (Januvia) 50 mg PO DAILY [facility] Last Admin: 02/26/17 08:22 Dose: 50 mg Tramadol HCl (Ultram) 50 mg PO Q6 PRN PRN Reason: Pain, moderate (4-7) Last Admin: 02/25/17 21:45 Dose: 50 mg Vitamin B Complex/Vit C/Folic Acid (Nephro-Niko) 1 tab PO DAILY [facility] Last Admin: 02/26/17 08:20 Dose: 1 tab - Labs Labs: 02/26/17 05:40 02/26/17 05:40 PT 16.7 Seconds (9.8-13.1) H 02/22/17 06:50 INR 1.5 (0.9-1.2) H 02/22/17 06:50 APTT 29.0 Seconds (25.6-37.1) 02/22/17 06:50 - Head Exam Head Exam: NORMAL INSPECTION - Eye Exam Eye Exam: Normal appearance - ENT Exam ENT Exam: Mucous Membranes Moist - Respiratory Exam Respiratory Exam: Decreased Breath Sounds - Cardiovascular Exam Cardiovascular Exam: REGULAR RHYTHM - GI/Abdominal Exam GI & Abdominal Exam: Normal Bowel Sounds - Neurological Exam Neurological Exam: Awake, Oriented x3 Assessment and Plan (1) CAD (coronary artery disease) Status: Acute (2) CKD (chronic kidney disease) stage 5, GFR less than 15 ml/min Status: Acute (3) Pneumonia Status: Acute (4) PAD (peripheral artery disease) Status: Acute (5) Respiratory insufficiency Status: Acute (6) CHF (congestive heart failure) Status: Chronic - Assessment and Plan (Free Text) Plan: Cont meds Cont tx Con tHD check labs iv antibiotics
--- NOTE | 2017-02-26 09:31 | CP.PCM.PN ---
Subjective - Date & Time of Evaluation Date of Evaluation: 02/24/17 Time of Evaluation: 10:00 - Subjective Subjective: patient is doing well Still on IV antibiotics Has no chest pain Has minimal pain on the amputation site Has no SOB. Objective - Vital Signs/Intake and Output Vital Signs (last 24 hours): Temp Pulse Resp BP Pulse Ox 98.8 F 80 20 107/56 L 93 L 02/26/17 00:06 02/26/17 08:21 02/26/17 00:06 02/26/17 08:21 02/26/17 00:06 - Medications Medications: Current Medications Aspirin (Aspirin Chewable) 81 mg PO DAILY [facility] Last Admin: 02/26/17 08:21 Dose: 81 mg Atorvastatin Calcium (Lipitor) 10 mg PO DAILY [facility] Last Admin: 02/26/17 08:21 Dose: 10 mg Carvedilol (Coreg) 3.125 mg PO Q12 [facility] Last Admin: 02/26/17 08:21 Dose: Not Given Clopidogrel Bisulfate (Plavix) 75 mg PO DAILY [facility] Last Admin: 02/26/17 08:20 Dose: 75 mg Docusate Sodium (Colace) 100 mg PO BID [facility] Last Admin: 02/26/17 08:19 Dose: 100 mg Epoetin Avery (Procrit) 20,000 unit IV MWF [facility] Last Admin: 02/25/17 15:48 Dose: 20,000 unit Heparin Sodium (Porcine) (Heparin) 5,000 units SC Q12 [facility] PRN Reason: Protocol Last Admin: 02/26/17 08:22 Dose: 5,000 units Home Med (Vorapaxar Sulfate [Zontivity]) 2.08 mg PO DAILY [facility] Cefepime HCl 1 gm/ Sodium (Chloride) 100 mls @ 100 mls/hr IVPB DAILY [facility] Last Admin: 02/26/17 08:18 Dose: 100 mls/hr Vancomycin HCl 500 mg/ Sodium (Chloride) 100 mls @ 100 mls/hr IVPB MWF [facility] Last Admin: 02/25/17 15:49 Dose: 100 mls/hr Insulin Human Regular (Humulin R) 0 units SC ACCU-CHECK [facility] PRN Reason: Protocol Last Admin: 02/26/17 07:19 Dose: 4 u Lactulose (Enulose) 20 gm PO DAILY PRN PRN Reason: Constipation Last Admin: 02/23/17 10:10 Dose: 20 gm Nifedipine (Procardia Xl) 60 mg PO DAILY [facility] Last Admin: 02/26/17 08:20 Dose: Not Given Pantoprazole Sodium (Protonix Ec Tab) 40 mg PO DAILY [facility] Last Admin: 02/26/17 08:22 Dose: 40 mg Sevelamer HCl (Renagel) 2,400 mg PO TID [facility] Last Admin: 02/26/17 08:19 Dose: 2,400 mg Sitagliptin Phosphate (Januvia) 50 mg PO DAILY [facility] Last Admin: 02/26/17 08:22 Dose: 50 mg Tramadol HCl (Ultram) 50 mg PO Q6 PRN PRN Reason: Pain, moderate (4-7) Last Admin: 02/25/17 21:45 Dose: 50 mg Vitamin B Complex/Vit C/Folic Acid (Nephro-Niko) 1 tab PO DAILY [facility] Last Admin: 02/26/17 08:20 Dose: 1 tab - Labs Labs: 02/26/17 05:40 02/26/17 05:40 PT 16.7 Seconds (9.8-13.1) H 02/22/17 06:50 INR 1.5 (0.9-1.2) H 02/22/17 06:50 APTT 29.0 Seconds (25.6-37.1) 02/22/17 06:50 - Head Exam Head Exam: NORMAL INSPECTION - Eye Exam Eye Exam: Normal appearance - Respiratory Exam Respiratory Exam: Decreased Breath Sounds - Cardiovascular Exam Cardiovascular Exam: REGULAR RHYTHM - GI/Abdominal Exam GI & Abdominal Exam: Normal Bowel Sounds - Neurological Exam Neurological Exam: CN II-XII Intact, Oriented x3 Assessment and Plan (1) CAD (coronary artery disease) Status: Acute (2) CKD (chronic kidney disease) stage 5, GFR less than 15 ml/min Status: Acute (3) Pneumonia Status: Acute (4) PAD (peripheral artery disease) Status: Acute (5) Respiratory insufficiency Status: Acute (6) CHF (congestive heart failure) Status: Chronic - Assessment and Plan (Free Text) Plan: Cont meds cont tx cont HD IV antibiotics CXR CT scan chest
--- NOTE | 2017-02-26 09:32 | CP.PCM.PN ---
Subjective - Date & Time of Evaluation Date of Evaluation: 02/25/17 Time of Evaluation: 10:00 - Subjective Subjective: Patient continues to do well Has no chest pain or SOB Afebrile. Objective - Vital Signs/Intake and Output Vital Signs (last 24 hours): Temp Pulse Resp BP Pulse Ox 98.8 F 80 20 107/56 L 93 L 02/26/17 00:06 02/26/17 08:21 02/26/17 00:06 02/26/17 08:21 02/26/17 00:06 - Medications Medications: Current Medications Aspirin (Aspirin Chewable) 81 mg PO DAILY [facility] Last Admin: 02/26/17 08:21 Dose: 81 mg Atorvastatin Calcium (Lipitor) 10 mg PO DAILY [facility] Last Admin: 02/26/17 08:21 Dose: 10 mg Carvedilol (Coreg) 3.125 mg PO Q12 [facility] Last Admin: 02/26/17 08:21 Dose: Not Given Clopidogrel Bisulfate (Plavix) 75 mg PO DAILY [facility] Last Admin: 02/26/17 08:20 Dose: 75 mg Docusate Sodium (Colace) 100 mg PO BID [facility] Last Admin: 02/26/17 08:19 Dose: 100 mg Epoetin Avery (Procrit) 20,000 unit IV MWF [facility] Last Admin: 02/25/17 15:48 Dose: 20,000 unit Heparin Sodium (Porcine) (Heparin) 5,000 units SC Q12 [facility] PRN Reason: Protocol Last Admin: 02/26/17 08:22 Dose: 5,000 units Home Med (Vorapaxar Sulfate [Zontivity]) 2.08 mg PO DAILY [facility] Cefepime HCl 1 gm/ Sodium (Chloride) 100 mls @ 100 mls/hr IVPB DAILY [facility] Last Admin: 02/26/17 08:18 Dose: 100 mls/hr Vancomycin HCl 500 mg/ Sodium (Chloride) 100 mls @ 100 mls/hr IVPB MWF [facility] Last Admin: 02/25/17 15:49 Dose: 100 mls/hr Insulin Human Regular (Humulin R) 0 units SC ACCU-CHECK [facility] PRN Reason: Protocol Last Admin: 02/26/17 07:19 Dose: 4 u Lactulose (Enulose) 20 gm PO DAILY PRN PRN Reason: Constipation Last Admin: 02/23/17 10:10 Dose: 20 gm Nifedipine (Procardia Xl) 60 mg PO DAILY [facility] Last Admin: 02/26/17 08:20 Dose: Not Given Pantoprazole Sodium (Protonix Ec Tab) 40 mg PO DAILY [facility] Last Admin: 02/26/17 08:22 Dose: 40 mg Sevelamer HCl (Renagel) 2,400 mg PO TID [facility] Last Admin: 02/26/17 08:19 Dose: 2,400 mg Sitagliptin Phosphate (Januvia) 50 mg PO DAILY [facility] Last Admin: 02/26/17 08:22 Dose: 50 mg Tramadol HCl (Ultram) 50 mg PO Q6 PRN PRN Reason: Pain, moderate (4-7) Last Admin: 02/25/17 21:45 Dose: 50 mg Vitamin B Complex/Vit C/Folic Acid (Nephro-Niko) 1 tab PO DAILY [facility] Last Admin: 02/26/17 08:20 Dose: 1 tab - Labs Labs: 02/26/17 05:40 02/26/17 05:40 PT 16.7 Seconds (9.8-13.1) H 02/22/17 06:50 INR 1.5 (0.9-1.2) H 02/22/17 06:50 APTT 29.0 Seconds (25.6-37.1) 02/22/17 06:50 - Head Exam Head Exam: NORMAL INSPECTION - Eye Exam Eye Exam: Normal appearance - ENT Exam ENT Exam: Mucous Membranes Moist - Respiratory Exam Respiratory Exam: Decreased Breath Sounds, Rhonchi - Cardiovascular Exam Cardiovascular Exam: Irregular Rhythm, REGULAR RHYTHM - GI/Abdominal Exam GI & Abdominal Exam: Normal Bowel Sounds Assessment and Plan (1) CAD (coronary artery disease) Status: Acute (2) CKD (chronic kidney disease) stage 5, GFR less than 15 ml/min Status: Acute (3) Pneumonia Status: Acute (4) PAD (peripheral artery disease) Status: Acute (5) Respiratory insufficiency Status: Acute (6) CHF (congestive heart failure) Status: Chronic - Assessment and Plan (Free Text) Plan: cont meds cont tx Cont Pt
--- NOTE | 2017-02-26 10:07 | CT ---
PROCEDURE: CT scan of the chest 02/26/2017 HISTORY: Pleural effusion, pneumonia COMPARISON: Comparison made with CT scan chest dated 02/09/2017. TECHNIQUE: Contiguous axial images were obtained through the chest without intravenous contrast enhancement. Sagittal and coronal reconstructions were performed. Radiation dose (DLP): 581.17 mGy-cm. This CT exam was performed using one or more of the following dose reduction techniques: Automated exposure control, adjustment of the mA and/or kV according to patient size, and/or use of iterative reconstruction technique. FINDINGS: LUNGS: Current study re- demonstrates large right-sided pleural effusion mild right basilar atelectasis. Tiny left-sided effusion decreased in size from prior exam. There is mild atelectasis in the left lung base as well as lingular and middle lobe regions. Again noted is a are small calcifications seen within the atelectatic lung in the right lower and upper lobes consistent with small calcified granulomata. . Small granuloma right middle lobe. . Findings consistent with prior exposure to granulomatous disease process. The remaining aerated lung exhibit hazy ground-glass opacities suggesting mild pulmonary edema. MEDIASTINUM: Heart remains enlarged. Small linear pericardial calcification along the cardiac apex unchanged. Sternotomy wires and multi lead pacemaker/defibrillator again noted. . Calcified plaque changes seen along thoracic aorta as well as origins of the great vessels. Ascending thoracic aorta measures approximately 3.6 cm and descending thoracic aorta measures approximately 2.6 cm. Pulmonary trunk measures approximately 3.1 cm. Multiple small and few prominent size nonspecific mediastinal lymph nodes. Evaluation for hilar adenopathy limited due to the lack of circulating intravenous contrast material. Central airways are midline and patent. Nonspecific PLEURA: No pneumothorax. BONES: No fracture. No destructive lesion. UPPER ABDOMEN: Grossly unremarkable. OTHER FINDINGS: Splenic calcifications consistent with prior exposure to granulomatous disease process. IMPRESSION: Current study re- demonstrates large right-sided pleural effusion mild right basilar atelectasis. Tiny left-sided effusion decreased in size from prior exam. There is mild atelectasis in the left lung base as well as lingular and middle lobe regions. Again noted is a are small calcifications seen within the atelectatic lung in the right lower and upper lobes consistent with small calcified granulomata. . Small granuloma right middle lobe. . Findings consistent with prior exposure to granulomatous disease process. The remaining aerated lung exhibit hazy ground-glass opacities suggesting mild pulmonary edema.
--- NOTE | 2017-02-26 10:26 | CP.PCM.CON ---
History of Present Illness - History of Present Illness History of Present Illness: THE PATIENT IS A 76 YEAR OLD MALE WELL KNOWN TO ME FROM MY OFFICE PRACTICE. HE HAS A HISTORY OF CAD WITH AN OLD IWMI AND CABGS, MV REPAIR, CARDIOMYOPATHY, PAD , HYPERTENSION, CRF ON HD, HYPERLIPIDEMIA AND DIABETES MELLITUS. 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 HE ALSO HAD REVASCULARIZATION OF A SEVERE RIGHT SUPERFICIAL FEMORAL ARTERY WITH AN ATHERECTOMY AND BALLOON ANGIOPLASTY WITH A DRUG ELUTING BALLOON. HE WAS DISCHARGED TO [facility] FOR REHAB AND TO FINISH HIS ANTIBIOTIC REGIMEN BUT WAS READMITTED WHEN THE TRIPLE LUMEN CATHETER WASN'T FUNCTIONING WELL TO CONTINUE HIS IV ANTIBIOTICS. HE WAS ALSO DIAGNOSED WITH PNEUMONIA AND IS TREATED FOR THIS ALSO. CARDIOLOGY WAS CALLED TO SEE HIM. HE DENIES CHEST PAIN OR SOB. Past Patient History - Infectious Disease Hx of Infectious Diseases: None - Past Medical History & Family History Past Medical History?: Yes - Past Social History Smoking Status: Never Smoked - CARDIAC Hx Cardiac Disorders: Yes Hx Atrial Fibrillation: Yes Hx Congestive Heart Failure: Yes Hx Hypercholesterolemia: Yes Hx Hypertension: Yes Hx Pacemaker: Yes - PULMONARY Hx Respiratory Disorders: Yes (pleural effusion) - HEENT Hx HEENT Problems: No - RENAL Hx Chronic Kidney Disease: Yes (ESRD) Type of Dialysis Access: right av fistula Date of Last Dialysis Treatment: 02/20/17 - ENDOCRINE/METABOLIC Hx Endocrine Disorders: Yes - HEMATOLOGICAL/ONCOLOGICAL Hx Blood Disorders: No - INTEGUMENTARY Hx Dermatological Problems: No - MUSCULOSKELETAL/RHEUMATOLOGICAL Hx Falls: Yes - GASTROINTESTINAL Hx Gastrointestinal Disorders: No - GENITOURINARY/GYNECOLOGICAL Hx Genitourinary Disorders: No - PSYCHIATRIC Hx Substance Use: No - SURGICAL HISTORY Hx Coronary Artery Bypass Graft: Yes Hx Coronary Stent: Yes - ANESTHESIA Hx Anesthesia: Yes Hx Anesthesia Reactions: No Hx Malignant Hyperthermia: No Meds Allergies/Adverse Reactions: Allergies Allergy/AdvReac Type Severity Reaction Status Date / Time No Known Allergies Allergy Verified 02/06/17 13:47 - Medications Medications: Current Medications Aspirin (Aspirin Chewable) 81 mg PO DAILY [facility] Last Admin: 02/26/17 08:21 Dose: 81 mg Atorvastatin Calcium (Lipitor) 10 mg PO DAILY [facility] Last Admin: 02/26/17 08:21 Dose: 10 mg Carvedilol (Coreg) 3.125 mg PO Q12 [facility] Last Admin: 02/26/17 08:21 Dose: Not Given Clopidogrel Bisulfate (Plavix) 75 mg PO DAILY [facility] Last Admin: 02/26/17 08:20 Dose: 75 mg Docusate Sodium (Colace) 100 mg PO BID [facility] Last Admin: 02/26/17 08:19 Dose: 100 mg Epoetin Avery (Procrit) 20,000 unit IV MWF [facility] Last Admin: 02/25/17 15:48 Dose: 20,000 unit Heparin Sodium (Porcine) (Heparin) 5,000 units SC Q12 [facility] PRN Reason: Protocol Last Admin: 02/26/17 08:22 Dose: 5,000 units Home Med (Vorapaxar Sulfate [Zontivity]) 2.08 mg PO DAILY [facility] Cefepime HCl 1 gm/ Sodium (Chloride) 100 mls @ 100 mls/hr IVPB DAILY [facility] Last Admin: 02/26/17 08:18 Dose: 100 mls/hr Vancomycin HCl 500 mg/ Sodium (Chloride) 100 mls @ 100 mls/hr IVPB MWF [facility] Last Admin: 02/25/17 15:49 Dose: 100 mls/hr Insulin Human Regular (Humulin R) 0 units SC ACCU-CHECK [facility] PRN Reason: Protocol Last Admin: 02/26/17 07:19 Dose: 4 u Lactulose (Enulose) 20 gm PO DAILY PRN PRN Reason: Constipation Last Admin: 02/23/17 10:10 Dose: 20 gm Nifedipine (Procardia Xl) 60 mg PO DAILY [facility] Last Admin: 02/26/17 08:20 Dose: Not Given Pantoprazole Sodium (Protonix Ec Tab) 40 mg PO DAILY [facility] Last Admin: 02/26/17 08:22 Dose: 40 mg Sevelamer HCl (Renagel) 2,400 mg PO TID [facility] Last Admin: 02/26/17 08:19 Dose: 2,400 mg Sitagliptin Phosphate (Januvia) 50 mg PO DAILY [facility] Last Admin: 02/26/17 08:22 Dose: 50 mg Tramadol HCl (Ultram) 50 mg PO Q6 PRN PRN Reason: Pain, moderate (4-7) Last Admin: 02/25/17 21:45 Dose: 50 mg Vitamin B Complex/Vit C/Folic Acid (Nephro-Niko) 1 tab PO DAILY [facility] Last Admin: 02/26/17 08:20 Dose: 1 tab Physical Exam - Respiratory Exam Respiratory Exam: Decreased Breath Sounds, Rales - Cardiovascular Exam Cardiovascular Exam: REGULAR RHYTHM, +S1, +S2 - Extremities Exam Additional comments: NO LE EDEMA GOOD PULSES RIGHT FOOT WITH SURGICAL DRESSINGS - Additional Findings Additional findings: EKG FROM PRIOR ADMISSION WITH NSR, OLD IWMI CXR AND CT SCANS NOTED DR ROBERSON' NOTE REVIEWED Results - Vital Signs Recent Vital Signs: Last Vital Signs Temp 98.8 F 02/26/17 00:06 Pulse 80 02/26/17 08:21 Resp 20 02/26/17 00:06 BP 107/56 L 02/26/17 08:21 Pulse Ox 93 L 02/26/17 00:06 - Labs Result Diagrams: 02/26/17 05:40 02/26/17 05:40 Labs: Laboratory Results - last 24 hr 02/25/17 02/25/17 02/25/17 10:00 10:00 10:00 WBC RBC Hgb Hct MCV MCH MCHC RDW Plt Count Sodium Potassium Chloride Carbon Dioxide Anion Gap BUN Creatinine Est GFR ( Amer) Est GFR (Non-Af Amer) POC Glucose (mg/dL) Random Glucose Calcium Hep Bs Antigen Negative Hep Bs Antibody Positive Hep B Core IgM Ab Negative 02/25/17 02/25/17 02/25/17 11:33 15:48 21:22 WBC RBC Hgb Hct MCV MCH MCHC RDW Plt Count Sodium Potassium Chloride Carbon Dioxide Anion Gap BUN Creatinine Est GFR ( Amer) Est GFR (Non-Af Amer) POC Glucose (mg/dL) 83 204 H 263 H Random Glucose Calcium Hep Bs Antigen Hep Bs Antibody Hep B Core IgM Ab 02/26/17 02/26/17 02/26/17 05:40 05:40 05:46 WBC 12.8 H RBC 3.87 L Hgb 8.0 L Hct 26.8 L MCV 69.2 L MCH 20.8 L MCHC 30.0 L RDW 21.6 H Plt Count 335 Sodium 137 Potassium 4.3 Chloride 97 L Carbon Dioxide 26 Anion Gap 18 BUN 35 H Creatinine 4.6 H Est GFR ( Amer) 15 Est GFR (Non-Af Amer) 12 POC Glucose (mg/dL) 274 H Random Glucose 262 H Calcium 9.2 Hep Bs Antigen Hep Bs Antibody Hep B Core IgM Ab Assessment & Plan - Assessment and Plan (Free Text) Assessment: CAD-STABLE HYPERTENSION PAD WITH RECENT RLE REVASCULARIZATION AND AMPUTATION OF GANGRENOUS RIGHT 2ND TOE CRF ON HD PNEUMONIA Plan: CONTINUE ANTIBIOTICS, ASPIRIN, CARVEDILOL, PROCARDIA, ATORVASTATIN, HEPARIN AND JANUVIA
--- NOTE | 2017-02-26 13:18 | CP.PCM.PN ---
Subjective - Date & Time of Evaluation Date of Evaluation: 02/26/17 Time of Evaluation: 13:15 - Subjective Subjective: Patient appears to be doing much better No new changes overnight reported White count has been going up as of yesterday however it came down slightly today Hemoglobin dropping 8.0 despite 20,000 EPO Physical exam Chest clear Heart no rubs Abdomen soft Extremity no edema Impression and plan End stage renal disease continue hemodialysis Saturday Leukocytosis whether related to the foot surgery or whether related to the atelectasis on the right side of the lung or both., Patient is on antibiotics as per ID large right pleural effusion on CT scan please call pulmonary for evaluation patient need pleural tap. Anemia of multiple etiology in addition to anemia of chronic end stage renal disease also patient has active infection on multiple antibiotics whether he has a questionable GI bleeding it's not clear continue EPO and further evaluation needed please call hematology. Objective - Vital Signs/Intake and Output Vital Signs (last 24 hours): Temp Pulse Resp BP Pulse Ox 98.8 F 80 20 107/56 L 93 L 02/26/17 00:06 02/26/17 08:21 02/26/17 00:06 02/26/17 08:21 02/26/17 00:06 - Medications Medications: Current Medications Aspirin (Aspirin Chewable) 81 mg PO DAILY [facility] Last Admin: 02/26/17 08:21 Dose: 81 mg Atorvastatin Calcium (Lipitor) 10 mg PO DAILY [facility] Last Admin: 02/26/17 08:21 Dose: 10 mg Carvedilol (Coreg) 3.125 mg PO Q12 [facility] Last Admin: 02/26/17 08:21 Dose: Not Given Clopidogrel Bisulfate (Plavix) 75 mg PO DAILY [facility] Last Admin: 02/26/17 08:20 Dose: 75 mg Docusate Sodium (Colace) 100 mg PO BID [facility] Last Admin: 02/26/17 08:19 Dose: 100 mg Epoetin Avery (Procrit) 20,000 unit IV MWF [facility] Last Admin: 02/25/17 15:48 Dose: 20,000 unit Heparin Sodium (Porcine) (Heparin) 5,000 units SC Q12 [facility] PRN Reason: Protocol Last Admin: 02/26/17 08:22 Dose: 5,000 units Home Med (Vorapaxar Sulfate [Zontivity]) 2.08 mg PO DAILY [facility] Cefepime HCl 1 gm/ Sodium (Chloride) 100 mls @ 100 mls/hr IVPB DAILY [facility] Last Admin: 02/26/17 08:18 Dose: 100 mls/hr Vancomycin HCl 500 mg/ Sodium (Chloride) 100 mls @ 100 mls/hr IVPB MWF [facility] Last Admin: 02/25/17 15:49 Dose: 100 mls/hr Insulin Human Regular (Humulin R) 0 units SC ACCU-CHECK [facility] PRN Reason: Protocol Last Admin: 02/26/17 12:06 Dose: 3 u Lactulose (Enulose) 20 gm PO DAILY PRN PRN Reason: Constipation Last Admin: 02/23/17 10:10 Dose: 20 gm Nifedipine (Procardia Xl) 60 mg PO DAILY [facility] Last Admin: 02/26/17 08:20 Dose: Not Given Pantoprazole Sodium (Protonix Ec Tab) 40 mg PO DAILY [facility] Last Admin: 02/26/17 08:22 Dose: 40 mg Sevelamer HCl (Renagel) 2,400 mg PO TID [facility] Last Admin: 02/26/17 08:19 Dose: 2,400 mg Sitagliptin Phosphate (Januvia) 50 mg PO DAILY [facility] Last Admin: 02/26/17 08:22 Dose: 50 mg Tramadol HCl (Ultram) 50 mg PO Q6 PRN PRN Reason: Pain, moderate (4-7) Last Admin: 02/26/17 10:58 Dose: 50 mg Vitamin B Complex/Vit C/Folic Acid (Nephro-Niko) 1 tab PO DAILY [facility] Last Admin: 02/26/17 08:20 Dose: 1 tab - Labs Labs: 02/26/17 05:40 02/26/17 05:40 PT 16.7 Seconds (9.8-13.1) H 02/22/17 06:50 INR 1.5 (0.9-1.2) H 02/22/17 06:50 APTT 29.0 Seconds (25.6-37.1) 02/22/17 06:50 Assessment and Plan (1) Wound infection Status: Deleted (2) CKD (chronic kidney disease) stage 5, GFR less than 15 ml/min Status: Acute
[2017-02-26 13:45] LABS: INR 1.4 (0.9-1.2); PROTHROMBIN TIME 16.1 Seconds (9.8-13.1)
[2017-02-26 13:46] LABS: PARTIAL THROMBOPLASTIN TIME 31.1 Seconds (25.6-37.1)
[2017-02-26] MEDS: Oxycodone/Acetaminophen 5/325 mg Tab PO PRN (14:25)
--- NOTE | 2017-02-26 17:08 | CP.PCM.CON ---
History of Present Illness - History of Present Illness History of Present Illness: 76 OLD MALE WITH MULTIPLE MEDICAL PROBLEMS WHO IS REFERRED FOR PULMONARY CONSULT BECAUSE OF LARGE R PLEURAL EFFUSION AND ATELECTASIS OF R LUNG HE DENIES CHEST PAINS/COUGH OR SOB Past Patient History - Infectious Disease Hx of Infectious Diseases: None - Past Medical History & Family History Past Medical History?: Yes - Past Social History Smoking Status: Never Smoked - CARDIAC Hx Cardiac Disorders: Yes Hx Atrial Fibrillation: Yes Hx Congestive Heart Failure: Yes Hx Hypercholesterolemia: Yes Hx Hypertension: Yes Hx Pacemaker: Yes - PULMONARY Hx Respiratory Disorders: Yes (pleural effusion) - HEENT Hx HEENT Problems: No - RENAL Hx Chronic Kidney Disease: Yes (ESRD) Type of Dialysis Access: right av fistula Date of Last Dialysis Treatment: 02/20/17 - ENDOCRINE/METABOLIC Hx Endocrine Disorders: Yes - HEMATOLOGICAL/ONCOLOGICAL Hx Blood Disorders: No - INTEGUMENTARY Hx Dermatological Problems: No - MUSCULOSKELETAL/RHEUMATOLOGICAL Hx Falls: Yes - GASTROINTESTINAL Hx Gastrointestinal Disorders: No - GENITOURINARY/GYNECOLOGICAL Hx Genitourinary Disorders: No - PSYCHIATRIC Hx Substance Use: No - SURGICAL HISTORY Hx Coronary Artery Bypass Graft: Yes Hx Coronary Stent: Yes - ANESTHESIA Hx Anesthesia: Yes Hx Anesthesia Reactions: No Hx Malignant Hyperthermia: No Meds Allergies/Adverse Reactions: Allergies Allergy/AdvReac Type Severity Reaction Status Date / Time No Known Allergies Allergy Verified 02/06/17 13:47 - Medications Medications: Current Medications Aspirin (Aspirin Chewable) 81 mg PO DAILY [facility] Last Admin: 02/26/17 08:21 Dose: 81 mg Atorvastatin Calcium (Lipitor) 10 mg PO DAILY [facility] Last Admin: 02/26/17 08:21 Dose: 10 mg Carvedilol (Coreg) 3.125 mg PO Q12 [facility] Last Admin: 02/26/17 08:21 Dose: Not Given Clopidogrel Bisulfate (Plavix) 75 mg PO DAILY [facility] Last Admin: 02/26/17 08:20 Dose: 75 mg Docusate Sodium (Colace) 100 mg PO BID [facility] Last Admin: 02/26/17 16:21 Dose: 100 mg Epoetin Avery (Procrit) 20,000 unit IV MWF [facility] Last Admin: 02/25/17 15:48 Dose: 20,000 unit Heparin Sodium (Porcine) (Heparin) 5,000 units SC Q12 [facility] PRN Reason: Protocol Last Admin: 02/26/17 08:22 Dose: 5,000 units Home Med (Vorapaxar Sulfate [Zontivity]) 2.08 mg PO DAILY [facility] Cefepime HCl 1 gm/ Sodium (Chloride) 100 mls @ 100 mls/hr IVPB DAILY [facility] Last Admin: 02/26/17 08:18 Dose: 100 mls/hr Vancomycin HCl 500 mg/ Sodium (Chloride) 100 mls @ 100 mls/hr IVPB MWF [facility] Last Admin: 02/25/17 15:49 Dose: 100 mls/hr Insulin Human Regular (Humulin R) 0 units SC ACCU-CHECK [facility] PRN Reason: Protocol Last Admin: 02/26/17 16:47 Dose: 3 u Lactulose (Enulose) 20 gm PO DAILY PRN PRN Reason: Constipation Last Admin: 02/23/17 10:10 Dose: 20 gm Nifedipine (Procardia Xl) 60 mg PO DAILY [facility] Last Admin: 02/26/17 08:20 Dose: Not Given Oxycodone/Acetaminophen (Percocet 5/325 Mg Tab) 2 tab PO Q4 PRN PRN Reason: Pain, severe (8-10) Stop: 03/01/17 13:46 Last Admin: 02/26/17 14:25 Dose: 2 tab Pantoprazole Sodium (Protonix Ec Tab) 40 mg PO DAILY [facility] Last Admin: 02/26/17 08:22 Dose: 40 mg Sevelamer HCl (Renagel) 2,400 mg PO TID [facility] Last Admin: 02/26/17 16:20 Dose: 2,400 mg Sitagliptin Phosphate (Januvia) 50 mg PO DAILY [facility] Last Admin: 02/26/17 08:22 Dose: 50 mg Tramadol HCl (Ultram) 50 mg PO Q6 PRN PRN Reason: Pain, moderate (4-7) Last Admin: 02/26/17 10:58 Dose: 50 mg Vitamin B Complex/Vit C/Folic Acid (Nephro-Niko) 1 tab PO DAILY [facility] Last Admin: 02/26/17 08:20 Dose: 1 tab Physical Exam - Constitutional Appears: Well - Head Exam Head Exam: ATRAUMATIC, NORMAL INSPECTION, NORMOCEPHALIC - Eye Exam Eye Exam: EOMI, Normal appearance, PERRL Pupil Exam: NORMAL ACCOMODATION, PERRL - ENT Exam ENT Exam: Mucous Membranes Moist, Normal Exam - Neck Exam Neck exam: Positive for: Normal Inspection - Respiratory Exam Respiratory Exam: Decreased Breath Sounds, NORMAL BREATHING PATTERN Additional comments: DULLNESS R LUNG BASE - Cardiovascular Exam Cardiovascular Exam: REGULAR RHYTHM - GI/Abdominal Exam GI & Abdominal Exam: Normal Bowel Sounds, Soft. absent: Tenderness - Rectal Exam Rectal Exam: NORMAL INSPECTION - Back Exam Back exam: NORMAL INSPECTION - Neurological Exam Neurological exam: Alert, CN II-XII Intact, Normal Gait, Oriented x3, Reflexes Normal - Psychiatric Exam Psychiatric exam: Normal Affect, Normal Mood - Skin Skin Exam: Dry, Intact, Normal Color, Warm Results - Vital Signs Recent Vital Signs: Last Vital Signs Temp 98.5 F 02/26/17 16:32 Pulse 54 L 02/26/17 16:32 Resp 20 02/26/17 16:32 BP 113/53 L 02/26/17 16:32 Pulse Ox 94 L 02/26/17 16:32 - Labs Result Diagrams: 02/26/17 05:40 02/26/17 05:40 Labs: Laboratory Results - last 24 hr 02/25/17 02/25/17 02/26/17 15:48 21:22 05:40 WBC 12.8 H RBC 3.87 L Hgb 8.0 L Hct 26.8 L MCV 69.2 L MCH 20.8 L MCHC 30.0 L RDW 21.6 H Plt Count 335 PT INR APTT Sodium Potassium Chloride Carbon Dioxide Anion Gap BUN Creatinine Est GFR ( Amer) Est GFR (Non-Af Amer) POC Glucose (mg/dL) 204 H 263 H Random Glucose Calcium 02/26/17 02/26/17 02/26/17 05:40 05:46 10:48 WBC RBC Hgb Hct MCV MCH MCHC RDW Plt Count PT INR APTT Sodium 137 Potassium 4.3 Chloride 97 L Carbon Dioxide 26 Anion Gap 18 BUN 35 H Creatinine 4.6 H Est GFR ( Amer) 15 Est GFR (Non-Af Amer) 12 POC Glucose (mg/dL) 274 H 221 H Random Glucose 262 H Calcium 9.2 02/26/17 02/26/17 13:10 16:32 WBC RBC Hgb Hct MCV MCH MCHC RDW Plt Count PT 16.1 H INR 1.4 H APTT 31.1 Sodium Potassium Chloride Carbon Dioxide Anion Gap BUN Creatinine Est GFR ( Amer) Est GFR (Non-Af Amer) POC Glucose (mg/dL) 217 H Random Glucose Calcium Assessment & Plan - Assessment and Plan (Free Text) Assessment: LARGE R PLEURAL EFFUSION-R/O INFECTIOUS ETIOLOGY[POST-OBSTRUCTIVE PNEUMONIA]/ RENAL FAILURE DOUBT MAILGNANCY/CHF Plan: REFER TO IR FOR CT GUIDED THORACENTESES HOLD ASA AND ANTICOAGULATION RX WILL FOLLOW WITH YOU
[2017-02-27] MEDS: Insulin Regular 100 units/ml SC SCH ×4 (08:38→23:12)
--- NOTE | 2017-02-27 08:47 | CP.PCM.PN ---
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 Patient is resting comfortably, AAOx3 and NAD. Patient denies any acute overnight events. Patient denies pain to his right foot. Patient denies N/V/F/D/SOB/CP. No other pedal complaints at this time. Objective - Vital Signs/Intake and Output Vital Signs (last 24 hours): Temp Pulse Resp BP Pulse Ox 98.1 F 75 20 112/73 98 02/27/17 08:03 02/27/17 08:03 02/27/17 08:03 02/27/17 08:03 02/27/17 08:03 - Medications Medications: Current Medications Aspirin (Aspirin Chewable) 81 mg PO DAILY [facility] Last Admin: 02/26/17 08:21 Dose: 81 mg Atorvastatin Calcium (Lipitor) 10 mg PO DAILY [facility] Last Admin: 02/26/17 08:21 Dose: 10 mg Carvedilol (Coreg) 3.125 mg PO Q12 [facility] Last Admin: 02/26/17 20:38 Dose: 3.125 mg Clopidogrel Bisulfate (Plavix) 75 mg PO DAILY [facility] Last Admin: 02/26/17 08:20 Dose: 75 mg Docusate Sodium (Colace) 100 mg PO BID [facility] Last Admin: 02/26/17 16:21 Dose: 100 mg Epoetin Avery (Procrit) 20,000 unit IV MWF [facility] Last Admin: 02/25/17 15:48 Dose: 20,000 unit Heparin Sodium (Porcine) (Heparin) 5,000 units SC Q12 [facility] PRN Reason: Protocol Last Admin: 02/26/17 08:22 Dose: 5,000 units Home Med (Vorapaxar Sulfate [Zontivity]) 2.08 mg PO DAILY [facility] Cefepime HCl 1 gm/ Sodium (Chloride) 100 mls @ 100 mls/hr IVPB DAILY [facility] Last Admin: 02/26/17 08:18 Dose: 100 mls/hr Vancomycin HCl 500 mg/ Sodium (Chloride) 100 mls @ 100 mls/hr IVPB MWF [facility] Last Admin: 02/25/17 15:49 Dose: 100 mls/hr Insulin Human Regular (Humulin R) 0 units SC ACCU-CHECK [facility] PRN Reason: Protocol Last Admin: 02/26/17 22:38 Dose: Not Given Lactulose (Enulose) 20 gm PO DAILY PRN PRN Reason: Constipation Last Admin: 02/23/17 10:10 Dose: 20 gm Nifedipine (Procardia Xl) 60 mg PO DAILY [facility] Last Admin: 02/26/17 08:20 Dose: Not Given Oxycodone/Acetaminophen (Percocet 5/325 Mg Tab) 2 tab PO Q4 PRN PRN Reason: Pain, severe (8-10) Stop: 03/01/17 13:46 Last Admin: 02/26/17 14:25 Dose: 2 tab Pantoprazole Sodium (Protonix Ec Tab) 40 mg PO DAILY [facility] Last Admin: 02/26/17 08:22 Dose: 40 mg Sevelamer HCl (Renagel) 2,400 mg PO TID [facility] Last Admin: 02/26/17 16:20 Dose: 2,400 mg Sitagliptin Phosphate (Januvia) 50 mg PO DAILY [facility] Last Admin: 02/26/17 08:22 Dose: 50 mg Tramadol HCl (Ultram) 50 mg PO Q6 PRN PRN Reason: Pain, moderate (4-7) Last Admin: 02/26/17 10:58 Dose: 50 mg Vitamin B Complex/Vit C/Folic Acid (Nephro-Niko) 1 tab PO DAILY [facility] Last Admin: 02/26/17 08:20 Dose: 1 tab - Labs Labs: 02/26/17 05:40 02/26/17 05:40 PT 16.1 Seconds (9.8-13.1) H 02/26/17 13:10 INR 1.4 (0.9-1.2) H 02/26/17 13:10 APTT 31.1 Seconds (25.6-37.1) 02/26/17 13:10 - Constitutional Appears: Well, Non-toxic, No Acute Distress - Extremities Exam Additional comments: Right lower extremity focused physical exam: VASC: DP/PT pulses are palpable 2/4, CROSSING TENDER: < 3 sec x 4, Temperature gradient: warm to cool DERM: Surgical site is well coapted and sutures are intact, no dehiscence, no active drainage, no malodor, no erythema noted, de-roofed bullae noted on the plantar medial arch with a granular base, no clinical suspicion of infection noted NEURO: grossly intact ORTHO: No pain on palpation noted to surgical site - Neurological Exam Neurological Exam: Alert, Awake, Oriented x3 - Psychiatric Exam Psychiatric exam: Normal Affect, Normal Mood Assessment and Plan - Assessment and Plan (Free Text) Assessment: 76 year old male POD#10 s/p R 2nd digit amputation and plantar deroofed bullae, non-infected Plan: Patient was seen and evaluated at bedside Dr. Lebron updated Chart, labs and vitals reviewed: afebrile Wound culture shows Serratia and Corynebacterium Surgical incision and bullae were dressed with betadine soaked adaptic, gauze, DSD, Kerlix, and light BARI. Pt is WBAT to right heel with a surgical shoe and full WBAT to left lower extremity Pt is still awaiting central line placement at this time Pt is for hemodialysis today as per Dr. Frost Pt. will under thoracocentesis possibly tomorrow Continue abx per ID (cefepime and vancomycin per Dr. Muniz) Patient is stable from podiatry standpoint Podiatry will continue to follow while in house
--- NOTE | 2017-02-27 09:13 | CP.PCM.PN ---
Subjective - Date & Time of Evaluation Date of Evaluation: 02/27/17 Time of Evaluation: 09:11 - Subjective Subjective: Patient and bed Appeared to be comfortable No chest pain reported He described less right foot pain Objective - Vital Signs/Intake and Output Vital Signs (last 24 hours): Temp Pulse Resp BP Pulse Ox 98.1 F 75 20 112/73 98 02/27/17 08:03 02/27/17 08:03 02/27/17 08:03 02/27/17 08:03 02/27/17 08:03 - Medications Medications: Current Medications Aspirin (Aspirin Chewable) 81 mg PO DAILY [facility] Last Admin: 02/26/17 08:21 Dose: 81 mg Atorvastatin Calcium (Lipitor) 10 mg PO DAILY [facility] Last Admin: 02/26/17 08:21 Dose: 10 mg Carvedilol (Coreg) 3.125 mg PO Q12 [facility] Last Admin: 02/26/17 20:38 Dose: 3.125 mg Clopidogrel Bisulfate (Plavix) 75 mg PO DAILY [facility] Last Admin: 02/26/17 08:20 Dose: 75 mg Docusate Sodium (Colace) 100 mg PO BID [facility] Last Admin: 02/26/17 16:21 Dose: 100 mg Epoetin Avery (Procrit) 20,000 unit IV MWF [facility] Last Admin: 02/25/17 15:48 Dose: 20,000 unit Heparin Sodium (Porcine) (Heparin) 5,000 units SC Q12 [facility] PRN Reason: Protocol Last Admin: 02/26/17 08:22 Dose: 5,000 units Home Med (Vorapaxar Sulfate [Zontivity]) 2.08 mg PO DAILY [facility] Cefepime HCl 1 gm/ Sodium (Chloride) 100 mls @ 100 mls/hr IVPB DAILY [facility] Last Admin: 02/26/17 08:18 Dose: 100 mls/hr Vancomycin HCl 500 mg/ Sodium (Chloride) 100 mls @ 100 mls/hr IVPB MWF [facility] Last Admin: 02/25/17 15:49 Dose: 100 mls/hr Insulin Human Regular (Humulin R) 0 units SC ACCU-CHECK [facility] PRN Reason: Protocol Last Admin: 02/26/17 22:38 Dose: Not Given Lactulose (Enulose) 20 gm PO DAILY PRN PRN Reason: Constipation Last Admin: 02/23/17 10:10 Dose: 20 gm Nifedipine (Procardia Xl) 60 mg PO DAILY [facility] Last Admin: 02/26/17 08:20 Dose: Not Given Oxycodone/Acetaminophen (Percocet 5/325 Mg Tab) 2 tab PO Q4 PRN PRN Reason: Pain, severe (8-10) Stop: 03/01/17 13:46 Last Admin: 02/26/17 14:25 Dose: 2 tab Pantoprazole Sodium (Protonix Ec Tab) 40 mg PO DAILY [facility] Last Admin: 02/26/17 08:22 Dose: 40 mg Sevelamer HCl (Renagel) 2,400 mg PO TID [facility] Last Admin: 02/26/17 16:20 Dose: 2,400 mg Sitagliptin Phosphate (Januvia) 50 mg PO DAILY [facility] Last Admin: 02/26/17 08:22 Dose: 50 mg Tramadol HCl (Ultram) 50 mg PO Q6 PRN PRN Reason: Pain, moderate (4-7) Last Admin: 02/26/17 10:58 Dose: 50 mg Vitamin B Complex/Vit C/Folic Acid (Nephro-Niko) 1 tab PO DAILY [facility] Last Admin: 02/26/17 08:20 Dose: 1 tab - Labs Labs: 02/26/17 05:40 02/26/17 05:40 PT 16.1 Seconds (9.8-13.1) H 02/26/17 13:10 INR 1.4 (0.9-1.2) H 02/26/17 13:10 APTT 31.1 Seconds (25.6-37.1) 02/26/17 13:10 - Constitutional Appears: No Acute Distress - Respiratory Exam Respiratory Exam: Decreased Breath Sounds, NORMAL BREATHING PATTERN. absent: Chest Wall Tenderness - Cardiovascular Exam Cardiovascular Exam: absent: REGULAR RHYTHM, Rubs - GI/Abdominal Exam GI & Abdominal Exam: Soft, Normal Bowel Sounds - Extremities Exam Extremities Exam: absent: Calf Tenderness - Back Exam Back Exam: absent: CVA tenderness (L), CVA tenderness (R) - Neurological Exam Neurological Exam: Alert Assessment and Plan (1) Wound infection Status: Deleted (2) CKD (chronic kidney disease) stage 5, GFR less than 15 ml/min Assessment & Plan: End stage renal disease patient to have dialysis shortly as scheduled Ultrafiltration about 2500 mL as tolerated Continue monitor the anemia, hemoglobin continued to drop slightly despite the alexandra dose of EPO Large right sided pleural effusion with the perhaps atelectasis. I suggest to do the thoracocentesis tomorrow not today on dialysis in May be too much to do hemodialysis and thoracocentesis and the same day to remove too much fluid. I spoke to the nurse practitioner to rearrange thoracocentesis for tomorrow. I will order serum iron and ferritin level stat now to be done on dialysis. Continue to monitor blood count if there is GI loss ,suggest to do occult blood in the stool patient continued to receive antibiotics intravenously an monitor vancomycin level Status: Acute
[2017-02-27] MEDS: Oxycodone/Acetaminophen 5/325 mg Tab PO PRN (09:22)
[2017-02-27] MEDS: Pantoprazole 40 mg EC Tab PO SCH (09:34)
[2017-02-27] MEDS: Multivitamin Vitamin B Complex (Nephro-Vite) Tab PO SCH (09:35)
[2017-02-27] MEDS: NIFEdipine 60 mg ER Tab PO SCH (09:37)
[2017-02-27] MEDS: Cefepime 1 GM in Sodium Chloride 0.9% 100 ML IVPB SCH (09:37)
[2017-02-27 09:40] LABS: HEMOGLOBIN 8.2 g/dL (12.0-18.0); MEAN CELL VOLUME 70.3 fl (80.0-94.0); MEAN CORPUSCULAR HEMOGLOBIN 20.6 pg (27.0-31.0); MEAN CORPUSCULAR HGB CONC 29.3 g/dL (33.0-37.0); RED CELL DISTRIBUTION WIDTH 21.2 % (11.5-14.5); WHITE BLOOD COUNT 12.7 K/uL (4.8-10.8)
--- NOTE | 2017-02-27 09:48 | CP.PCM.PN ---
Subjective - Date & Time of Evaluation Date of Evaluation: 02/27/17 Time of Evaluation: 09:49 - Subjective Subjective: DENIES CHEST PAINS/SOB NO COUGH CT SCAN OF CHEST REMARKABLE FOR MODERATE AMOUNT OF R PLEURAL EFFUSION INTERVENTION RADIOLOGIST TO PERFORM CT/ULTRASOUND GUIDED THORACENTESES FOR SYMPTOM RELIEF AND DIAGNOSIS WILL CONTINUE TO HOLD ANTICOAGULANTS Objective - Vital Signs/Intake and Output Vital Signs (last 24 hours): Temp Pulse Resp BP Pulse Ox 98.1 F 75 20 112/73 98 02/27/17 08:03 02/27/17 08:03 02/27/17 08:03 02/27/17 08:03 02/27/17 08:03 - Medications Medications: Current Medications Aspirin (Aspirin Chewable) 81 mg PO DAILY [facility] Last Admin: 02/26/17 08:21 Dose: 81 mg Atorvastatin Calcium (Lipitor) 10 mg PO DAILY [facility] Last Admin: 02/27/17 09:35 Dose: 10 mg Carvedilol (Coreg) 3.125 mg PO Q12 [facility] Last Admin: 02/27/17 09:34 Dose: Not Given Clopidogrel Bisulfate (Plavix) 75 mg PO DAILY [facility] Last Admin: 02/26/17 08:20 Dose: 75 mg Docusate Sodium (Colace) 100 mg PO BID [facility] Last Admin: 02/27/17 09:25 Dose: 100 mg Epoetin Avery (Procrit) 20,000 unit IV MWF [facility] Last Admin: 02/25/17 15:48 Dose: 20,000 unit Heparin Sodium (Porcine) (Heparin) 5,000 units SC Q12 [facility] PRN Reason: Protocol Last Admin: 02/26/17 08:22 Dose: 5,000 units Home Med (Vorapaxar Sulfate [Zontivity]) 2.08 mg PO DAILY [facility] Cefepime HCl 1 gm/ Sodium (Chloride) 100 mls @ 100 mls/hr IVPB DAILY [facility] Last Admin: 02/27/17 09:37 Dose: 100 mls/hr Vancomycin HCl 500 mg/ Sodium (Chloride) 100 mls @ 100 mls/hr IVPB MWF [facility] Last Admin: 02/27/17 09:37 Dose: 100 mls/hr Insulin Human Regular (Humulin R) 0 units SC ACCU-CHECK [facility] PRN Reason: Protocol Last Admin: 02/27/17 08:38 Dose: 2 u Lactulose (Enulose) 20 gm PO DAILY PRN PRN Reason: Constipation Last Admin: 02/23/17 10:10 Dose: 20 gm Nifedipine (Procardia Xl) 60 mg PO DAILY [facility] Last Admin: 02/27/17 09:37 Dose: Not Given Oxycodone/Acetaminophen (Percocet 5/325 Mg Tab) 2 tab PO Q4 PRN PRN Reason: Pain, severe (8-10) Stop: 03/01/17 13:46 Last Admin: 02/27/17 09:22 Dose: 2 tab Pantoprazole Sodium (Protonix Ec Tab) 40 mg PO DAILY [facility] Last Admin: 02/27/17 09:34 Dose: 40 mg Sevelamer HCl (Renagel) 2,400 mg PO TID [facility] Last Admin: 02/27/17 09:26 Dose: 2,400 mg Sitagliptin Phosphate (Januvia) 50 mg PO DAILY [facility] Last Admin: 02/27/17 09:35 Dose: 50 mg Tramadol HCl (Ultram) 50 mg PO Q6 PRN PRN Reason: Pain, moderate (4-7) Last Admin: 02/26/17 10:58 Dose: 50 mg Vitamin B Complex/Vit C/Folic Acid (Nephro-Niko) 1 tab PO DAILY [facility] Last Admin: 02/27/17 09:35 Dose: 1 tab - Labs Labs: 02/26/17 05:40 02/26/17 05:40 PT 16.1 Seconds (9.8-13.1) H 02/26/17 13:10 INR 1.4 (0.9-1.2) H 02/26/17 13:10 APTT 31.1 Seconds (25.6-37.1) 02/26/17 13:10
--- NOTE | 2017-02-27 09:59 | CP.PCM.PN ---
Subjective - Date & Time of Evaluation Date of Evaluation: 02/27/17 Time of Evaluation: 09:57 - Subjective Subjective: Patient is comfortable in bed. Noted large pleural effusion on the right via CT scan Has no chest pain or SOB Scheduled for IR tomorrow For HD today all albs are stable. Objective - Vital Signs/Intake and Output Vital Signs (last 24 hours): Temp Pulse Resp BP Pulse Ox 98.1 F 75 20 112/73 98 02/27/17 08:03 02/27/17 08:03 02/27/17 08:03 02/27/17 08:03 02/27/17 08:03 - Medications Medications: Current Medications Aspirin (Aspirin Chewable) 81 mg PO DAILY [facility] Last Admin: 02/26/17 08:21 Dose: 81 mg Atorvastatin Calcium (Lipitor) 10 mg PO DAILY [facility] Last Admin: 02/27/17 09:35 Dose: 10 mg Carvedilol (Coreg) 3.125 mg PO Q12 [facility] Last Admin: 02/27/17 09:34 Dose: Not Given Clopidogrel Bisulfate (Plavix) 75 mg PO DAILY [facility] Last Admin: 02/26/17 08:20 Dose: 75 mg Docusate Sodium (Colace) 100 mg PO BID [facility] Last Admin: 02/27/17 09:25 Dose: 100 mg Epoetin Avery (Procrit) 20,000 unit IV MWF [facility] Last Admin: 02/25/17 15:48 Dose: 20,000 unit Heparin Sodium (Porcine) (Heparin) 5,000 units SC Q12 [facility] PRN Reason: Protocol Last Admin: 02/26/17 08:22 Dose: 5,000 units Home Med (Vorapaxar Sulfate [Zontivity]) 2.08 mg PO DAILY [facility] Cefepime HCl 1 gm/ Sodium (Chloride) 100 mls @ 100 mls/hr IVPB DAILY [facility] Last Admin: 02/27/17 09:37 Dose: 100 mls/hr Vancomycin HCl 500 mg/ Sodium (Chloride) 100 mls @ 100 mls/hr IVPB MWF [facility] Last Admin: 02/27/17 09:37 Dose: 100 mls/hr Insulin Human Regular (Humulin R) 0 units SC ACCU-CHECK [facility] PRN Reason: Protocol Last Admin: 02/27/17 08:38 Dose: 2 u Lactulose (Enulose) 20 gm PO DAILY PRN PRN Reason: Constipation Last Admin: 02/23/17 10:10 Dose: 20 gm Nifedipine (Procardia Xl) 60 mg PO DAILY [facility] Last Admin: 02/27/17 09:37 Dose: Not Given Oxycodone/Acetaminophen (Percocet 5/325 Mg Tab) 2 tab PO Q4 PRN PRN Reason: Pain, severe (8-10) Stop: 03/01/17 13:46 Last Admin: 02/27/17 09:22 Dose: 2 tab Pantoprazole Sodium (Protonix Ec Tab) 40 mg PO DAILY [facility] Last Admin: 02/27/17 09:34 Dose: 40 mg Sevelamer HCl (Renagel) 2,400 mg PO TID [facility] Last Admin: 02/27/17 09:26 Dose: 2,400 mg Sitagliptin Phosphate (Januvia) 50 mg PO DAILY [facility] Last Admin: 02/27/17 09:35 Dose: 50 mg Tramadol HCl (Ultram) 50 mg PO Q6 PRN PRN Reason: Pain, moderate (4-7) Last Admin: 02/26/17 10:58 Dose: 50 mg Vitamin B Complex/Vit C/Folic Acid (Nephro-Niko) 1 tab PO DAILY [facility] Last Admin: 02/27/17 09:35 Dose: 1 tab - Labs Labs: 02/26/17 05:40 02/26/17 05:40 PT 16.1 Seconds (9.8-13.1) H 02/26/17 13:10 INR 1.4 (0.9-1.2) H 02/26/17 13:10 APTT 31.1 Seconds (25.6-37.1) 02/26/17 13:10 - Head Exam Head Exam: NORMAL INSPECTION - Eye Exam Eye Exam: Normal appearance - ENT Exam ENT Exam: Mucous Membranes Moist - Respiratory Exam Respiratory Exam: Decreased Breath Sounds - Cardiovascular Exam Cardiovascular Exam: REGULAR RHYTHM - GI/Abdominal Exam GI & Abdominal Exam: Normal Bowel Sounds Assessment and Plan (1) CAD (coronary artery disease) Status: Acute (2) CKD (chronic kidney disease) stage 5, GFR less than 15 ml/min Status: Acute (3) Pneumonia Status: Acute (4) PAD (peripheral artery disease) Status: Acute (5) Respiratory insufficiency Status: Acute (6) CHF (congestive heart failure) Status: Chronic - Assessment and Plan (Free Text) Plan: Cont meds cont tx medically stable for thoracentesis check EKG today labs post op
[2017-02-27 10:03] LABS: CALCIUM 9.5 mg/dL (8.4-10.2)
[2017-02-27 10:11] LABS: IRON 15 ug/dL (49-181)
[2017-02-27 10:26] LABS: % IRON SATURATION 8 % (20-55); TOTAL IRON BINDING CAPACITY 188 ug/dL (250-450)
--- NOTE | 2017-02-27 10:53 | CP.PCM.PN ---
Subjective - Date & Time of Evaluation Date of Evaluation: 02/27/17 Time of Evaluation: 09:00 - Subjective Subjective: NO CHEST PAIN LESS RIGHT FOOT PAIN Objective - Vital Signs/Intake and Output Vital Signs (last 24 hours): Temp Pulse Resp BP Pulse Ox 98.1 F 75 20 112/73 98 02/27/17 08:03 02/27/17 08:03 02/27/17 08:03 02/27/17 08:03 02/27/17 08:03 - Medications Medications: Current Medications Aspirin (Aspirin Chewable) 81 mg PO DAILY [facility] Last Admin: 02/26/17 08:21 Dose: 81 mg Atorvastatin Calcium (Lipitor) 10 mg PO DAILY [facility] Last Admin: 02/27/17 09:35 Dose: 10 mg Carvedilol (Coreg) 3.125 mg PO Q12 [facility] Last Admin: 02/27/17 09:34 Dose: Not Given Clopidogrel Bisulfate (Plavix) 75 mg PO DAILY [facility] Last Admin: 02/26/17 08:20 Dose: 75 mg Docusate Sodium (Colace) 100 mg PO BID [facility] Last Admin: 02/27/17 09:25 Dose: 100 mg Epoetin Avery (Procrit) 20,000 unit IV MWF [facility] Last Admin: 02/25/17 15:48 Dose: 20,000 unit Heparin Sodium (Porcine) (Heparin) 5,000 units SC Q12 [facility] PRN Reason: Protocol Last Admin: 02/26/17 08:22 Dose: 5,000 units Home Med (Vorapaxar Sulfate [Zontivity]) 2.08 mg PO DAILY [facility] Cefepime HCl 1 gm/ Sodium (Chloride) 100 mls @ 100 mls/hr IVPB DAILY [facility] Last Admin: 02/27/17 09:37 Dose: 100 mls/hr Vancomycin HCl 500 mg/ Sodium (Chloride) 100 mls @ 100 mls/hr IVPB MWF [facility] Last Admin: 02/27/17 09:37 Dose: 100 mls/hr Insulin Human Regular (Humulin R) 0 units SC ACCU-CHECK [facility] PRN Reason: Protocol Last Admin: 02/27/17 08:38 Dose: 2 u Lactulose (Enulose) 20 gm PO DAILY PRN PRN Reason: Constipation Last Admin: 02/23/17 10:10 Dose: 20 gm Nifedipine (Procardia Xl) 60 mg PO DAILY [facility] Last Admin: 02/27/17 09:37 Dose: Not Given Oxycodone/Acetaminophen (Percocet 5/325 Mg Tab) 2 tab PO Q4 PRN PRN Reason: Pain, severe (8-10) Stop: 03/01/17 13:46 Last Admin: 02/27/17 09:22 Dose: 2 tab Pantoprazole Sodium (Protonix Ec Tab) 40 mg PO DAILY [facility] Last Admin: 02/27/17 09:34 Dose: 40 mg Sevelamer HCl (Renagel) 2,400 mg PO TID [facility] Last Admin: 02/27/17 09:26 Dose: 2,400 mg Sitagliptin Phosphate (Januvia) 50 mg PO DAILY [facility] Last Admin: 02/27/17 09:35 Dose: 50 mg Tramadol HCl (Ultram) 50 mg PO Q6 PRN PRN Reason: Pain, moderate (4-7) Last Admin: 02/26/17 10:58 Dose: 50 mg Vitamin B Complex/Vit C/Folic Acid (Nephro-Niko) 1 tab PO DAILY [facility] Last Admin: 02/27/17 09:35 Dose: 1 tab - Labs Labs: 02/27/17 09:20 02/27/17 09:20 PT 16.1 Seconds (9.8-13.1) H 02/26/17 13:10 INR 1.4 (0.9-1.2) H 02/26/17 13:10 APTT 31.1 Seconds (25.6-37.1) 02/26/17 13:10 - Respiratory Exam Respiratory Exam: Clear to Ausculation Bilateral - Cardiovascular Exam Cardiovascular Exam: REGULAR RHYTHM, +S1, +S2 Assessment and Plan - Assessment and Plan (Free Text) Assessment: CAD-STABLE PAD WITH 2ND RIGHT TOE AMPUTATION HYPERTENSION CRF ON HD RIGHT PLEURAL EFFUSION Plan: CONTINUE PRESENT TREATMENT WITH CARVEDILOL, PROCARDIA, ATORVASTATIN AND ANTIBIOTICS FOR THORACENTESIS TOMORROW-ASPIRIN, CLOPIDOGREL AND HEPARIN ON HOLD
[2017-02-27] MEDS: Epoetin Alfa 20000 UNIT/ML Inj IV SCH ×2 (17:57→20:24)
--- NOTE | 2017-02-28 06:44 | CP.PCM.PN ---
<Candace Dentan - Last Filed: 02/28/17 11:13> Subjective - Date & Time of Evaluation Date of Evaluation: 02/28/17 Time of Evaluation: 06:44 - Subjective Subjective: Patient seen and examined at bedside with attending. Was calling family last night telling them he was dying. 76M c/o fatigue and weakness this morning, but denies SOB or chest pain. Also reports decreased appetite. Objective - Vital Signs/Intake and Output Vital Signs (last 24 hours): Temp Pulse Resp BP Pulse Ox 36.8 C 94 H 19 93/52 L 94 L 02/28/17 01:00 02/28/17 01:00 02/28/17 01:00 02/28/17 01:00 02/28/17 01:00 - Medications Medications: Current Medications Aspirin (Aspirin Chewable) 81 mg PO DAILY [facility] Last Admin: 02/26/17 08:21 Dose: 81 mg Atorvastatin Calcium (Lipitor) 10 mg PO DAILY [facility] Last Admin: 02/27/17 09:35 Dose: 10 mg Carvedilol (Coreg) 3.125 mg PO Q12 [facility] Last Admin: 02/27/17 23:11 Dose: Not Given Clopidogrel Bisulfate (Plavix) 75 mg PO DAILY [facility] Last Admin: 02/26/17 08:20 Dose: 75 mg Docusate Sodium (Colace) 100 mg PO BID [facility] Last Admin: 02/27/17 16:54 Dose: 100 mg Epoetin Avery (Procrit) 20,000 unit IV MWF [facility] Last Admin: 02/27/17 20:24 Dose: 20,000 unit Heparin Sodium (Porcine) (Heparin) 5,000 units SC Q12 [facility] PRN Reason: Protocol Last Admin: 02/26/17 08:22 Dose: 5,000 units Home Med (Vorapaxar Sulfate [Zontivity]) 2.08 mg PO DAILY [facility] Cefepime HCl 1 gm/ Sodium (Chloride) 100 mls @ 100 mls/hr IVPB DAILY [facility] Last Admin: 02/27/17 09:37 Dose: 100 mls/hr Vancomycin HCl 500 mg/ Sodium (Chloride) 100 mls @ 100 mls/hr IVPB MWF [facility] Last Admin: 02/27/17 23:13 Dose: 100 mls/hr Insulin Human Regular (Humulin R) 0 units SC ACCU-CHECK [facility] PRN Reason: Protocol Last Admin: 02/27/17 23:12 Dose: Not Given Lactulose (Enulose) 20 gm PO DAILY PRN PRN Reason: Constipation Last Admin: 02/27/17 16:57 Dose: 20 gm Nifedipine (Procardia Xl) 60 mg PO DAILY [facility] Last Admin: 02/27/17 09:37 Dose: Not Given Ondansetron HCl (Zofran Inj) 4 mg IVP Q6 PRN PRN Reason: Nausea/Vomiting Last Admin: 02/27/17 13:43 Dose: 4 mg Oxycodone/Acetaminophen (Percocet 5/325 Mg Tab) 2 tab PO Q4 PRN PRN Reason: Pain, severe (8-10) Stop: 03/01/17 13:46 Last Admin: 02/27/17 09:22 Dose: 2 tab Pantoprazole Sodium (Protonix Ec Tab) 40 mg PO DAILY [facility] Last Admin: 02/27/17 09:34 Dose: 40 mg Sevelamer HCl (Renagel) 2,400 mg PO TID [facility] Last Admin: 02/27/17 16:48 Dose: 2,400 mg Sitagliptin Phosphate (Januvia) 50 mg PO DAILY [facility] Last Admin: 02/27/17 09:35 Dose: 50 mg Tramadol HCl (Ultram) 50 mg PO Q6 PRN PRN Reason: Pain, moderate (4-7) Last Admin: 02/27/17 17:30 Dose: 50 mg Vitamin B Complex/Vit C/Folic Acid (Nephro-Niko) 1 tab PO DAILY [facility] Last Admin: 02/27/17 09:35 Dose: 1 tab - Labs Labs: 02/27/17 09:20 02/27/17 09:20 PT 16.1 Seconds (9.8-13.1) H 02/26/17 13:10 INR 1.4 (0.9-1.2) H 02/26/17 13:10 APTT 31.1 Seconds (25.6-37.1) 02/26/17 13:10 - Constitutional Appears: Non-toxic - Head Exam Head Exam: ATRAUMATIC, NORMAL INSPECTION - Eye Exam Eye Exam: EOMI, PERRL - ENT Exam ENT Exam: Mucous Membranes Dry - Respiratory Exam Respiratory Exam: Clear to Ausculation Bilateral, NORMAL BREATHING PATTERN - Cardiovascular Exam Cardiovascular Exam: REGULAR RHYTHM (Paced). absent: JVD - GI/Abdominal Exam GI & Abdominal Exam: Soft, Normal Bowel Sounds. absent: Tenderness - Extremities Exam Extremities Exam: absent: Pedal Edema - Neurological Exam Neurological Exam: Awake - Psychiatric Exam Psychiatric exam: Depressed - Skin Skin Exam: Intact Assessment and Plan - Assessment and Plan (Free Text) Assessment: 76M for proposed thoracentesis of large right pleural effusion. Clinically patient dry this morning. - 500ml NS bolus x1 with improvement in blood pressure - Cardiology Consult (Dr Johnson) appreciated - Podiatry Consult appreciated - Pulmonary Consult (Dr Marti) appreciated - c/w HD for ESRD - c/w DM medications - c/w antibiotics for toe infection - c/w medications for CAD - DVT prophylaxis - ?Psych for possible depression <Rocco Huff - Last Filed: 03/01/17 11:12> Objective - Vital Signs/Intake and Output Vital Signs (last 24 hours): Temp Pulse Resp BP Pulse Ox 98.4 F 75 18 119/55 L 98 03/01/17 07:34 03/01/17 07:34 03/01/17 07:34 03/01/17 07:34 03/01/17 07:34 - Medications Medications: Current Medications Aspirin (Aspirin Chewable) 81 mg PO DAILY [facility] Last Admin: 03/01/17 09:04 Dose: Not Given Atorvastatin Calcium (Lipitor) 10 mg PO DAILY [facility] Last Admin: 03/01/17 09:05 Dose: Not Given Carvedilol (Coreg) 3.125 mg PO Q12 [facility] Last Admin: 03/01/17 08:45 Dose: Not Given Clopidogrel Bisulfate (Plavix) 75 mg PO DAILY [facility] Last Admin: 03/01/17 09:03 Dose: Not Given Docusate Sodium (Colace) 100 mg PO BID [facility] Last Admin: 03/01/17 09:04 Dose: Not Given Epoetin Avery (Procrit) 20,000 unit IV MWF [facility] Last Admin: 03/01/17 09:04 Dose: 20,000 unit Fluconazole (Diflucan) 100 mg PO DAILY [facility] Last Admin: 03/01/17 08:46 Dose: 100 mg Heparin Sodium (Porcine) (Heparin) 5,000 units SC Q12 [facility] PRN Reason: Protocol Last Admin: 03/01/17 09:04 Dose: Not Given Home Med (Vorapaxar Sulfate [Zontivity]) 2.08 mg PO DAILY [facility] Last Admin: 03/01/17 09:05 Dose: Not Given Cefepime HCl 1 gm/ Sodium (Chloride) 100 mls @ 100 mls/hr IVPB DAILY [facility] Last Admin: 03/01/17 09:05 Dose: Not Given Vancomycin HCl 500 mg/ Sodium (Chloride) 100 mls @ 100 mls/hr [place] [facility] [place] Admin: 03/01/17 08:51 Dose: 100 mls/hr Iron Sucrose 100 mg/ Sodium (Chloride) 105 mls @ 105 mls/hr IVPB [facility] ONE Stop: 03/01/17 11:42 Last Admin: 03/01/17 10:41 Dose: 105 mls/hr Insulin Human Regular (Humulin R) 0 units SC ACCU-CHECK [facility] PRN Reason: Protocol Last Admin: 03/01/17 08:46 Dose: 2 units Lactulose (Enulose) 20 gm PO DAILY PRN PRN Reason: Constipation Last Admin: 02/27/17 16:57 Dose: 20 gm Nifedipine (Procardia Xl) 60 mg PO DAILY [facility] Last Admin: 03/01/17 09:04 Dose: Not Given Ondansetron HCl (Zofran Inj) 4 mg IVP Q6 PRN PRN Reason: Nausea/Vomiting Last Admin: 02/28/17 16:12 Dose: 4 mg Oxycodone/Acetaminophen (Percocet 5/325 Mg Tab) 2 tab PO Q4 PRN PRN Reason: Pain, severe (8-10) Stop: 03/01/17 13:46 Last Admin: 02/27/17 09:22 Dose: 2 tab Pantoprazole Sodium (Protonix Ec Tab) 40 mg PO DAILY [facility] Last Admin: 03/01/17 09:05 Dose: Not Given Sevelamer HCl (Renagel) 2,400 mg PO TID [facility] Last Admin: 03/01/17 09:05 Dose: Not Given Sitagliptin Phosphate (Januvia) 50 mg PO DAILY [facility] Last Admin: 03/01/17 09:05 Dose: Not Given Tramadol HCl (Ultram) 50 mg PO Q6 PRN PRN Reason: Pain, moderate (4-7) Last Admin: 03/01/17 08:50 Dose: 50 mg Vitamin B Complex/Vit C/Folic Acid (Nephro-Niko) 1 tab PO DAILY [facility] Last Admin: 03/01/17 09:05 Dose: Not Given - Labs Labs: 03/01/17 05:20 03/01/17 05:20 PT 16.1 Seconds (9.8-13.1) H 02/26/17 13:10 INR 1.4 (0.9-1.2) H 02/26/17 13:10 APTT 31.1 Seconds (25.6-37.1) 02/26/17 13:10 Assessment and Plan (1) CAD (coronary artery disease) Status: Acute (2) CKD (chronic kidney disease) stage 5, GFR less than 15 ml/min Status: Acute (3) Pneumonia Status: Acute (4) PAD (peripheral artery disease) Status: Acute (5) Respiratory insufficiency Status: Acute (6) CHF (congestive heart failure) Status: Chronic (7) Pleural effusion Status: Acute - Assessment and Plan (Free Text) Plan: I was present during evaluation and discussed with Dr Dent re plans of care. rocco Huff M.D.
[2017-02-28] MEDS: Insulin Regular 100 units/ml SC SCH ×4 (06:49→22:00)
[2017-02-28 06:58] LABS: CALCIUM 9.3 mg/dL (8.4-10.2)
[2017-02-28] MEDS ORDERED: Sodium Chloride 0.9% 500 ML IV SCH ×2 (07:00)
[2017-02-28 07:01] LABS: HEMOGLOBIN 8.2 g/dL (12.0-18.0); MEAN CELL VOLUME 71.2 fl (80.0-94.0); MEAN CORPUSCULAR HEMOGLOBIN 20.8 pg (27.0-31.0); MEAN CORPUSCULAR HGB CONC 29.2 g/dL (33.0-37.0); RBC 3.93 Mil/uL (4.40-5.90); RED CELL DISTRIBUTION WIDTH 21.5 % (11.5-14.5); WHITE BLOOD COUNT 12.7 K/uL (4.8-10.8)
--- NOTE | 2017-02-28 07:57 | CP.PCM.PN ---
Subjective - Date & Time of Evaluation Date of Evaluation: 02/28/17 Time of Evaluation: 07:40 - Subjective Subjective: 76 year old male patient seen at bedside today POD#12 s/p right 2nd digit amputation and bullae formation to plantar aspect of right foot. Patient is resting comfortably at bedside. He is oriented and alert. Patient denies any acute overnight events. Patient states he has pain to his right foot. Patient denies N/V/F/D/SOB/CP. No other pedal complaints at this time. Objective - Vital Signs/Intake and Output Vital Signs (last 24 hours): Temp Pulse Resp BP Pulse Ox 98.3 F 94 H 19 93/52 L 94 L 02/28/17 01:00 02/28/17 01:00 02/28/17 01:00 02/28/17 01:00 02/28/17 01:00 - Medications Medications: Current Medications Aspirin (Aspirin Chewable) 81 mg PO DAILY [facility] Last Admin: 02/26/17 08:21 Dose: 81 mg Atorvastatin Calcium (Lipitor) 10 mg PO DAILY [facility] Last Admin: 02/27/17 09:35 Dose: 10 mg Carvedilol (Coreg) 3.125 mg PO Q12 [facility] Last Admin: 02/27/17 23:11 Dose: Not Given Clopidogrel Bisulfate (Plavix) 75 mg PO DAILY [facility] Last Admin: 02/26/17 08:20 Dose: 75 mg Docusate Sodium (Colace) 100 mg PO BID [facility] Last Admin: 02/27/17 16:54 Dose: 100 mg Epoetin Avery (Procrit) 20,000 unit IV MWF [facility] Last Admin: 02/27/17 20:24 Dose: 20,000 unit Heparin Sodium (Porcine) (Heparin) 5,000 units SC Q12 [facility] PRN Reason: Protocol Last Admin: 02/26/17 08:22 Dose: 5,000 units Home Med (Vorapaxar Sulfate [Zontivity]) 2.08 mg PO DAILY [facility] Cefepime HCl 1 gm/ Sodium (Chloride) 100 mls @ 100 mls/hr IVPB DAILY [facility] Last Admin: 02/27/17 09:37 Dose: 100 mls/hr Vancomycin HCl 500 mg/ Sodium (Chloride) 100 mls @ 100 mls/hr IVPB MWF [facility] Last Admin: 02/27/17 23:13 Dose: 100 mls/hr Sodium Chloride (Sodium Chloride 0.9%) 500 mls @ 500 mls/hr IV .Q1H [facility] Stop: 02/28/17 07:59 Insulin Human Regular (Humulin R) 0 units SC ACCU-CHECK [facility] PRN Reason: Protocol Last Admin: 02/28/17 06:49 Dose: Not Given Lactulose (Enulose) 20 gm PO DAILY PRN PRN Reason: Constipation Last Admin: 02/27/17 16:57 Dose: 20 gm Nifedipine (Procardia Xl) 60 mg PO DAILY [facility] Last Admin: 02/27/17 09:37 Dose: Not Given Ondansetron HCl (Zofran Inj) 4 mg IVP Q6 PRN PRN Reason: Nausea/Vomiting Last Admin: 02/27/17 13:43 Dose: 4 mg Oxycodone/Acetaminophen (Percocet 5/325 Mg Tab) 2 tab PO Q4 PRN PRN Reason: Pain, severe (8-10) Stop: 03/01/17 13:46 Last Admin: 02/27/17 09:22 Dose: 2 tab Pantoprazole Sodium (Protonix Ec Tab) 40 mg PO DAILY [facility] Last Admin: 02/27/17 09:34 Dose: 40 mg Sevelamer HCl (Renagel) 2,400 mg PO TID [facility] Last Admin: 02/27/17 16:48 Dose: 2,400 mg Sitagliptin Phosphate (Januvia) 50 mg PO DAILY [facility] Last Admin: 02/27/17 09:35 Dose: 50 mg Tramadol HCl (Ultram) 50 mg PO Q6 PRN PRN Reason: Pain, moderate (4-7) Last Admin: 02/27/17 17:30 Dose: 50 mg Vitamin B Complex/Vit C/Folic Acid (Nephro-Niko) 1 tab PO DAILY [facility] Last Admin: 02/27/17 09:35 Dose: 1 tab - Labs Labs: 02/28/17 05:50 02/28/17 05:50 PT 16.1 Seconds (9.8-13.1) H 02/26/17 13:10 INR 1.4 (0.9-1.2) H 02/26/17 13:10 APTT 31.1 Seconds (25.6-37.1) 02/26/17 13:10 - Constitutional Appears: Well, Non-toxic, No Acute Distress - Extremities Exam Additional comments: Right lower extremity focused physical exam: VASC: DP/PT pulses are palpable 2/4, RUG DRY ROOM ATTENDANT: < 3 sec x 4, Temperature gradient: cool to cool, no edema noted DERM: Surgical site is well coapted and sutures are intact, no dehiscence, no active drainage, no malodor, no erythema noted, de-roofed bullae noted on the plantar medial arch with a granular base, no drainage noted to the bullae, no clinical suspicion of infection noted NEURO: grossly sensation intact ORTHO: No pain on palpation noted to surgical site, mild pain elicited on palpation of plantar medial arch - Neurological Exam Neurological Exam: Alert, Awake, Oriented x3 - Psychiatric Exam Psychiatric exam: Normal Affect, Normal Mood Assessment and Plan - Assessment and Plan (Free Text) Assessment: 76 year old male POD#10 s/p R 2nd digit amputation and plantar deroofed bullae, non-infected Plan: Patient was seen and evaluated at bedside Discussed plan in details with Dr. Lebron updated Chart, labs and vitals reviewed: (WBC: 12.7, afebrile) Wound culture shows Serratia and Corynebacterium Surgical incision and bullae were dressed with betadine soaked adaptic, gauze, DSD, Kerlix, and light BARI. Pt is WBAT to right heel with a surgical shoe and full WBAT to left lower extremity Awaiting central line placement Pt. will under thoracocentesis today 2/2 R pleural effusion Continue abx per ID (cefepime and vancomycin per Dr. Muniz) Patient is stable from podiatry standpoint Podiatry will continue to follow while in house
--- NOTE | 2017-02-28 08:48 | CP.PCM.PN ---
Subjective - Date & Time of Evaluation Date of Evaluation: 02/28/17 Time of Evaluation: 08:47 - Subjective Subjective: NO NEW CLINICAL FINDINGS SCHEDULED FOR THORACENTESES TODAY BY IR WILL CONTINUE TO FOLLOW WITH YOU Objective - Vital Signs/Intake and Output Vital Signs (last 24 hours): Temp Pulse Resp BP Pulse Ox 98.5 F 85 20 117/57 L 95 02/28/17 07:59 02/28/17 07:59 02/28/17 07:59 02/28/17 07:59 02/28/17 07:59 - Medications Medications: Current Medications Aspirin (Aspirin Chewable) 81 mg PO DAILY [facility] Last Admin: 02/26/17 08:21 Dose: 81 mg Atorvastatin Calcium (Lipitor) 10 mg PO DAILY [facility] Last Admin: 02/27/17 09:35 Dose: 10 mg Carvedilol (Coreg) 3.125 mg PO Q12 [facility] Last Admin: 02/27/17 23:11 Dose: Not Given Clopidogrel Bisulfate (Plavix) 75 mg PO DAILY [facility] Last Admin: 02/26/17 08:20 Dose: 75 mg Docusate Sodium (Colace) 100 mg PO BID [facility] Last Admin: 02/27/17 16:54 Dose: 100 mg Epoetin Avery (Procrit) 20,000 unit IV MWF [facility] Last Admin: 02/27/17 20:24 Dose: 20,000 unit Heparin Sodium (Porcine) (Heparin) 5,000 units SC Q12 [facility] PRN Reason: Protocol Last Admin: 02/26/17 08:22 Dose: 5,000 units Home Med (Vorapaxar Sulfate [Zontivity]) 2.08 mg PO DAILY [facility] Cefepime HCl 1 gm/ Sodium (Chloride) 100 mls @ 100 mls/hr IVPB DAILY [facility] Last Admin: 02/27/17 09:37 Dose: 100 mls/hr Vancomycin HCl 500 mg/ Sodium (Chloride) 100 mls @ 100 mls/hr IVPB MWF [facility] Last Admin: 02/27/17 23:13 Dose: 100 mls/hr Insulin Human Regular (Humulin R) 0 units SC ACCU-CHECK [facility] PRN Reason: Protocol Last Admin: 02/28/17 06:49 Dose: Not Given Lactulose (Enulose) 20 gm PO DAILY PRN PRN Reason: Constipation Last Admin: 02/27/17 16:57 Dose: 20 gm Nifedipine (Procardia Xl) 60 mg PO DAILY [facility] Last Admin: 02/27/17 09:37 Dose: Not Given Ondansetron HCl (Zofran Inj) 4 mg IVP Q6 PRN PRN Reason: Nausea/Vomiting Last Admin: 02/27/17 13:43 Dose: 4 mg Oxycodone/Acetaminophen (Percocet 5/325 Mg Tab) 2 tab PO Q4 PRN PRN Reason: Pain, severe (8-10) Stop: 03/01/17 13:46 Last Admin: 02/27/17 09:22 Dose: 2 tab Pantoprazole Sodium (Protonix Ec Tab) 40 mg PO DAILY [facility] Last Admin: 02/27/17 09:34 Dose: 40 mg Sevelamer HCl (Renagel) 2,400 mg PO TID [facility] Last Admin: 02/27/17 16:48 Dose: 2,400 mg Sitagliptin Phosphate (Januvia) 50 mg PO DAILY [facility] Last Admin: 02/27/17 09:35 Dose: 50 mg Tramadol HCl (Ultram) 50 mg PO Q6 PRN PRN Reason: Pain, moderate (4-7) Last Admin: 02/27/17 17:30 Dose: 50 mg Vitamin B Complex/Vit C/Folic Acid (Nephro-Niko) 1 tab PO DAILY [facility] Last Admin: 02/27/17 09:35 Dose: 1 tab - Labs Labs: 02/28/17 05:50 02/28/17 05:50 PT 16.1 Seconds (9.8-13.1) H 02/26/17 13:10 INR 1.4 (0.9-1.2) H 02/26/17 13:10 APTT 31.1 Seconds (25.6-37.1) 02/26/17 13:10
[2017-02-28] MEDS: Cefepime 1 GM in Sodium Chloride 0.9% 100 ML IVPB SCH (09:22)
[2017-02-28] MEDS: NIFEdipine 60 mg ER Tab PO SCH (09:23)
[2017-02-28] MEDS: Multivitamin Vitamin B Complex (Nephro-Vite) Tab PO SCH (09:23)
[2017-02-28] MEDS: VORAPAXAR SULFATE 2.08 MG PO SCH (09:24)
[2017-02-28] MEDS: Pantoprazole 40 mg EC Tab PO SCH (09:24)
--- NOTE | 2017-02-28 10:23 | CP.PCM.PN ---
Subjective - Date & Time of Evaluation Date of Evaluation: 02/28/17 Time of Evaluation: 08:00 - Subjective Subjective: NO CHEST PAIN MILD SOB Objective - Vital Signs/Intake and Output Vital Signs (last 24 hours): Temp Pulse Resp BP Pulse Ox 98.5 F 85 20 117/57 L 95 02/28/17 07:59 02/28/17 09:25 02/28/17 07:59 02/28/17 09:25 02/28/17 07:59 - Medications Medications: Current Medications Aspirin (Aspirin Chewable) 81 mg PO DAILY [facility] Last Admin: 02/26/17 08:21 Dose: 81 mg Atorvastatin Calcium (Lipitor) 10 mg PO DAILY [facility] Last Admin: 02/28/17 09:24 Dose: 10 mg Carvedilol (Coreg) 3.125 mg PO Q12 [facility] Last Admin: 02/28/17 09:25 Dose: Not Given Clopidogrel Bisulfate (Plavix) 75 mg PO DAILY [facility] Last Admin: 02/26/17 08:20 Dose: 75 mg Docusate Sodium (Colace) 100 mg PO BID [facility] Last Admin: 02/28/17 09:24 Dose: 100 mg Epoetin Avery (Procrit) 20,000 unit IV MWF [facility] Last Admin: 02/27/17 20:24 Dose: 20,000 unit Heparin Sodium (Porcine) (Heparin) 5,000 units SC Q12 [facility] PRN Reason: Protocol Last Admin: 02/26/17 08:22 Dose: 5,000 units Home Med (Vorapaxar Sulfate [Zontivity]) 2.08 mg PO DAILY [facility] Last Admin: 02/28/17 09:24 Dose: 2.08 mg Cefepime HCl 1 gm/ Sodium (Chloride) 100 mls @ 100 mls/hr IVPB DAILY [facility] Last Admin: 02/28/17 09:22 Dose: 100 mls/hr Vancomycin HCl 500 mg/ Sodium (Chloride) 100 mls @ 100 mls/hr IVPB MWF [facility] Last Admin: 02/27/17 23:13 Dose: 100 mls/hr Insulin Human Regular (Humulin R) 0 units SC ACCU-CHECK [facility] PRN Reason: Protocol Last Admin: 02/28/17 06:49 Dose: Not Given Lactulose (Enulose) 20 gm PO DAILY PRN PRN Reason: Constipation Last Admin: 02/27/17 16:57 Dose: 20 gm Nifedipine (Procardia Xl) 60 mg PO DAILY [facility] Last Admin: 02/28/17 09:23 Dose: Not Given Ondansetron HCl (Zofran Inj) 4 mg IVP Q6 PRN PRN Reason: Nausea/Vomiting Last Admin: 02/27/17 13:43 Dose: 4 mg Oxycodone/Acetaminophen (Percocet 5/325 Mg Tab) 2 tab PO Q4 PRN PRN Reason: Pain, severe (8-10) Stop: 03/01/17 13:46 Last Admin: 02/27/17 09:22 Dose: 2 tab Pantoprazole Sodium (Protonix Ec Tab) 40 mg PO DAILY [facility] Last Admin: 02/28/17 09:24 Dose: 40 mg Sevelamer HCl (Renagel) 2,400 mg PO TID [facility] Last Admin: 02/28/17 09:23 Dose: 2,400 mg Sitagliptin Phosphate (Januvia) 50 mg PO DAILY [facility] Last Admin: 02/28/17 09:24 Dose: 50 mg Tramadol HCl (Ultram) 50 mg PO Q6 PRN PRN Reason: Pain, moderate (4-7) Last Admin: 02/27/17 17:30 Dose: 50 mg Vitamin B Complex/Vit C/Folic Acid (Nephro-Niko) 1 tab PO DAILY [facility] Last Admin: 02/28/17 09:23 Dose: 1 tab - Labs Labs: 02/28/17 05:50 02/28/17 05:50 PT 16.1 Seconds (9.8-13.1) H 02/26/17 13:10 INR 1.4 (0.9-1.2) H 02/26/17 13:10 APTT 31.1 Seconds (25.6-37.1) 02/26/17 13:10 - Respiratory Exam Respiratory Exam: Decreased Breath Sounds - Cardiovascular Exam Cardiovascular Exam: REGULAR RHYTHM, +S1, +S2 - Extremities Exam Additional comments: NO LE EDEMA RIGHT FOOT WITH SURGICAL DRESSINGS Assessment and Plan - Assessment and Plan (Free Text) Assessment: CAD HYPERTENSION CRF ON HS DM RIGHT PLEURAL EFFUSION Plan: FOR THORACENTESIS TODAY CONTINUE CARVEDILOL, PROCARDIA, ATORVASTATIN, JANUVIA AND ANTIBIOTICS ASPIRIN, CLOPIDOGREL AND HEPARIN ON HOLD UNTIL AFTER THORACENTESIS
--- NOTE | 2017-02-28 10:40 | CP.PCM.PN ---
Subjective - Date & Time of Evaluation Date of Evaluation: 02/28/17 Time of Evaluation: 10:38 - Subjective Subjective: Patient and bed No chest pain no shortness of breath Appeared to be comfortable Physical exam Chest decreased breath sound on the right Heart no rubs Abdomen soft Extremity no edema Impression and plan Serum iron is low Iron saturation is low Serum ferritin noted around 650 We will give intravenous Venofer 100 mg on hemodialysis. Objective - Vital Signs/Intake and Output Vital Signs (last 24 hours): Temp Pulse Resp BP Pulse Ox 98.5 F 85 20 117/57 L 95 02/28/17 07:59 02/28/17 09:25 02/28/17 07:59 02/28/17 09:25 02/28/17 07:59 - Medications Medications: Current Medications Aspirin (Aspirin Chewable) 81 mg PO DAILY [facility] Last Admin: 02/26/17 08:21 Dose: 81 mg Atorvastatin Calcium (Lipitor) 10 mg PO DAILY [facility] Last Admin: 02/28/17 09:24 Dose: 10 mg Carvedilol (Coreg) 3.125 mg PO Q12 [facility] Last Admin: 02/28/17 09:25 Dose: Not Given Clopidogrel Bisulfate (Plavix) 75 mg PO DAILY [facility] Last Admin: 02/26/17 08:20 Dose: 75 mg Docusate Sodium (Colace) 100 mg PO BID [facility] Last Admin: 02/28/17 09:24 Dose: 100 mg Epoetin Avery (Procrit) [facility] Last Admin: 02/27/17 20:24 Dose: 20,000 unit Heparin Sodium (Porcine) (Heparin) 5,000 units SC Q12 [facility] PRN Reason: Protocol Last Admin: 02/26/17 08:22 Dose: 5,000 units Home Med (Vorapaxar Sulfate [Zontivity]) 2.08 mg PO DAILY [facility] Last Admin: 02/28/17 09:24 Dose: 2.08 mg Cefepime HCl 1 gm/ Sodium (Chloride) 100 mls @ 100 mls/hr IVPB DAILY [facility] Last Admin: 02/28/17 09:22 Dose: 100 mls/hr Vancomycin HCl 500 mg/ Sodium (Chloride) 100 mls @ 100 mls/hr IVPB MWF [facility] Last Admin: 02/27/17 23:13 Dose: 100 mls/hr Iron Sucrose 100 mg/ Sodium (Chloride) 105 mls @ 105 mls/hr IVPB DAILY [facility] Insulin Human Regular (Humulin R) 0 units SC ACCU-CHECK [facility] PRN Reason: Protocol Last Admin: 02/28/17 06:49 Dose: Not Given Lactulose (Enulose) 20 gm PO DAILY PRN PRN Reason: Constipation Last Admin: 02/27/17 16:57 Dose: 20 gm Nifedipine (Procardia Xl) 60 mg PO DAILY [facility] Last Admin: 02/28/17 09:23 Dose: Not Given Ondansetron HCl (Zofran Inj) 4 mg IVP Q6 PRN PRN Reason: Nausea/Vomiting Last Admin: 02/27/17 13:43 Dose: 4 mg Oxycodone/Acetaminophen (Percocet 5/325 Mg Tab) 2 tab PO Q4 PRN PRN Reason: Pain, severe (8-10) Stop: 03/01/17 13:46 Last Admin: 02/27/17 09:22 Dose: 2 tab Pantoprazole Sodium (Protonix Ec Tab) 40 mg PO DAILY [facility] Last Admin: 02/28/17 09:24 Dose: 40 mg Sevelamer HCl (Renagel) 2,400 mg PO TID [facility] Last Admin: 02/28/17 09:23 Dose: 2,400 mg Sitagliptin Phosphate (Januvia) 50 mg PO DAILY [facility] Last Admin: 02/28/17 09:24 Dose: 50 mg Tramadol HCl (Ultram) 50 mg PO Q6 PRN PRN Reason: Pain, moderate (4-7) Last Admin: 02/27/17 17:30 Dose: 50 mg Vitamin B Complex/Vit C/Folic Acid (Nephro-Niko) 1 tab PO DAILY [facility] Last Admin: 02/28/17 09:23 Dose: 1 tab - Labs Labs: 02/28/17 05:50 02/28/17 05:50 PT 16.1 Seconds (9.8-13.1) H 02/26/17 13:10 INR 1.4 (0.9-1.2) H 02/26/17 13:10 APTT 31.1 Seconds (25.6-37.1) 02/26/17 13:10 Assessment and Plan (1) Wound infection Status: Deleted (2) CKD (chronic kidney disease) stage 5, GFR less than 15 ml/min Status: Acute
--- NOTE | 2017-02-28 11:39 | CARD ---
APPROVED REPORT EKG Measurement Heart [id number] ID [id number] <Conclusion> DDD pacemaker Atrial-sensed ventricular-paced rhythm Abnormal ECG
[2017-02-28] MEDS ORDERED: Lidocaine 1% Inj (20ml) ONE (14:54)
--- NOTE | 2017-02-28 15:32 | PCM.SURG1 ---
Surgeon's Initial Post Op Note - Surgeon's Notes Surgeon: Kit Sarabia MD [place] Worker: NONE Type of Anesthesia: Local Pre-Operative Diagnosis: Pleural effusion Operative Findings: US showed a large right pleural effusion Post-Operative Diagnosis: Pleural effusion Operation Performed: US guided right thoracentesis. Specimen/Specimens Removed: 1800 cc of clear yellow fluid Estimated Blood Loss: EBL {In ML}: 0 Blood Products Given: N/A Drains Used: No Drains Post-Op Condition: Fair Date of Surgery/Procedure: 02/28/17 Time of Surgery/Procedure: 15:25
[2017-02-28 16:32] LABS: BODY FLUID TYPE PLEURAL/THORACENTESI
--- NOTE | 2017-02-28 16:50 | RAD ---
PROCEDURE: CHEST RADIOGRAPH, 1 VIEW HISTORY: Status post right thoracentesis. COMPARISON: 02/25/2017. FINDINGS: LUNGS: There is interval significant decrease in size of right lower lobe atelectasis and pleural effusion. There is atelectasis/ scarring in the left lower lobe. There is mild pulmonary venous congestion. PLEURA: No pneumothorax or left pleural fluid seen. CARDIOVASCULAR: There is persistent mild cardiomegaly. Status post CABG. There is stable position of a left-sided transvenous permanent pacing device. OSSEOUS STRUCTURES: No significant abnormalities. VISUALIZED UPPER ABDOMEN: Normal. OTHER FINDINGS: A right subclavian stent remains in stable position. IMPRESSION: Interval significant decrease in size of a right pleural effusion post thoracentesis.
[2017-02-28 16:51] LABS: TOTAL PROTEIN,BODY FLUID 4.5 g/dL (NONE ESTABLISHED)
[2017-02-28 19:14] LABS: BF GROSS APPEARANCE SL CLOUDY (CLEAR)
[2017-02-28 20:58] LABS: BODY FLUID MONO/MACROPHAGE 31 % (0-0); BODY FLUID TOTAL COUNT 100 (0-0)
[2017-03-01 06:39] LABS: HEMOGLOBIN 8.7 g/dL (12.0-18.0); MEAN CELL VOLUME 70.8 fl (80.0-94.0); MEAN CORPUSCULAR HEMOGLOBIN 20.9 pg (27.0-31.0); MEAN CORPUSCULAR HGB CONC 29.5 g/dL (33.0-37.0); RBC 4.18 Mil/uL (4.40-5.90); RED CELL DISTRIBUTION WIDTH 21.3 % (11.5-14.5); WHITE BLOOD COUNT 14.1 K/uL (4.8-10.8)
[2017-03-01 06:50] LABS: CALCIUM 9.3 mg/dL (8.4-10.2)
[2017-03-01] MEDS: Insulin Regular 100 units/ml SC SCH ×4 (08:46→22:02)
--- NOTE | 2017-03-01 08:56 | CP.PCM.PN ---
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 Patient is seen resting comfortably, AAOx3 and NAD. Patient denies any acute events overnight. Patient denies pain to his right foot today. Patient denies N/V/F/D/C /SOB/CP. No other pedal complaints at this time. Objective - Vital Signs/Intake and Output Vital Signs (last 24 hours): Temp Pulse Resp BP Pulse Ox 98.4 F 75 18 119/55 L 98 03/01/17 07:34 03/01/17 07:34 03/01/17 07:34 03/01/17 07:34 03/01/17 07:34 - Medications Medications: Current Medications Aspirin (Aspirin Chewable) 81 mg PO DAILY [facility] Last Admin: 02/26/17 08:21 Dose: 81 mg Atorvastatin Calcium (Lipitor) 10 mg PO DAILY [facility] Last Admin: 02/28/17 09:24 Dose: 10 mg Carvedilol (Coreg) 3.125 mg PO Q12 [facility] Last Admin: 03/01/17 08:45 Dose: Not Given Clopidogrel Bisulfate (Plavix) 75 mg PO DAILY [facility] Last Admin: 02/26/17 08:20 Dose: 75 mg Docusate Sodium (Colace) 100 mg PO BID [facility] Last Admin: 02/28/17 16:58 Dose: 100 mg Epoetin Avery (Procrit) 20,000 unit IV MWF [facility] Last Admin: 02/27/17 20:24 Dose: 20,000 unit Fluconazole (Diflucan) 100 mg PO DAILY [facility] Last Admin: 03/01/17 08:46 Dose: 100 mg Heparin Sodium (Porcine) (Heparin) 5,000 units SC Q12 [facility] PRN Reason: Protocol Last Admin: 02/26/17 08:22 Dose: 5,000 units Home Med (Vorapaxar Sulfate [Zontivity]) 2.08 mg PO DAILY [facility] Last Admin: 02/28/17 09:24 Dose: 2.08 mg Cefepime HCl 1 gm/ Sodium (Chloride) 100 mls @ 100 mls/hr IVPB DAILY [facility] Last Admin: 02/28/17 09:22 Dose: 100 mls/hr Vancomycin HCl 500 mg/ Sodium (Chloride) 100 mls @ 100 mls/hr IVPB MWF [facility] Last Admin: 03/01/17 08:51 Dose: 100 mls/hr Iron Sucrose 100 mg/ Sodium (Chloride) 105 mls @ 105 mls/hr IVPB MWF [facility] Stop: 03/01/17 11:42 Insulin Human Regular (Humulin R) 0 units SC ACCU-CHECK [facility] PRN Reason: Protocol Last Admin: 03/01/17 08:46 Dose: 2 units Lactulose (Enulose) 20 gm PO DAILY PRN PRN Reason: Constipation Last Admin: 02/27/17 16:57 Dose: 20 gm Nifedipine (Procardia Xl) 60 mg PO DAILY [facility] Last Admin: 02/28/17 09:23 Dose: Not Given Ondansetron HCl (Zofran Inj) 4 mg IVP Q6 PRN PRN Reason: Nausea/Vomiting Last Admin: 02/28/17 16:12 Dose: 4 mg Oxycodone/Acetaminophen (Percocet 5/325 Mg Tab) 2 tab PO Q4 PRN PRN Reason: Pain, severe (8-10) Stop: 03/01/17 13:46 Last Admin: 02/27/17 09:22 Dose: 2 tab Pantoprazole Sodium (Protonix Ec Tab) 40 mg PO DAILY [facility] Last Admin: 02/28/17 09:24 Dose: 40 mg Sevelamer HCl (Renagel) 2,400 mg PO TID [facility] Last Admin: 02/28/17 16:57 Dose: 2,400 mg Sitagliptin Phosphate (Januvia) 50 mg PO DAILY [facility] Last Admin: 02/28/17 09:24 Dose: 50 mg Tramadol HCl (Ultram) 50 mg PO Q6 PRN PRN Reason: Pain, moderate (4-7) Last Admin: 03/01/17 08:50 Dose: 50 mg Vitamin B Complex/Vit C/Folic Acid (Nephro-Niko) 1 tab PO DAILY [facility] Last Admin: 02/28/17 09:23 Dose: 1 tab - Labs Labs: 03/01/17 05:20 03/01/17 05:20 PT 16.1 Seconds (9.8-13.1) H 02/26/17 13:10 INR 1.4 (0.9-1.2) H 02/26/17 13:10 APTT 31.1 Seconds (25.6-37.1) 02/26/17 13:10 - Constitutional Appears: Well, Non-toxic, No Acute Distress - Extremities Exam Additional comments: Right lower extremity focused physical exam: VASC: DP/PT pulses are palpable 2/4, UTILITY PORTER: < 3 sec x 4, Temperature gradient: cool to cool, no edema noted DERM: Surgical site is well coapted and sutures are intact, no dehiscence, no active drainage, no malodor, no erythema noted, de-roofed bullae noted on the plantar medial arch with a granular base, no drainage noted to the bullae, no clinical suspicion of infection noted NEURO: grossly sensation intact ORTHO: No pain on palpation noted to surgical site or plantar medial arch - Neurological Exam Neurological Exam: Alert, Awake, Oriented x3 - Psychiatric Exam Psychiatric exam: Normal Affect, Normal Mood Assessment and Plan - Assessment and Plan (Free Text) Assessment: 76 year old male POD #13 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 Discussed with attending, Dr. Lebron. Charts, labs, vitals reviewed: afebrile, WBC = 14.1 (increased from yesterday, WBC = 12.7 @ 02/28/17 and 12.7 @ 02/27/17). Surgical incision and bullae dressed with betadine soaked adaptic, 4x4 gauze, kerlix, and light BARI. Pt is WBAT to right heel with surgical shoe and FWB to LLE. Awaiting cental line placement. Continue abx per ID: Cefepime, Vancomycin per Dr. Muniz Patient is stable from podiatry standpoint. Podiatry will continue to follow while in house.
[2017-03-01] MEDS: NIFEdipine 60 mg ER Tab PO SCH (09:04)
[2017-03-01] MEDS: Epoetin Alfa 20000 UNIT/ML Inj IV SCH (09:04)
[2017-03-01] MEDS: VORAPAXAR SULFATE 2.08 MG PO SCH ×3 (09:05→13:29)
[2017-03-01] MEDS: Cefepime 1 GM in Sodium Chloride 0.9% 100 ML IVPB SCH ×2 (09:05→13:16)
[2017-03-01] MEDS: Multivitamin Vitamin B Complex (Nephro-Vite) Tab PO SCH ×2 (09:05→13:17)
[2017-03-01] MEDS: Pantoprazole 40 mg EC Tab PO SCH ×2 (09:05→13:18)
--- NOTE | 2017-03-01 10:08 | CP.PCM.PN ---
Subjective - Date & Time of Evaluation Date of Evaluation: 03/01/17 Time of Evaluation: 09:00 - Subjective Subjective: NO CHEST PAIN OR SOB BREATHING BETTER AFTER THORACENTESIS Objective - Vital Signs/Intake and Output Vital Signs (last 24 hours): Temp Pulse Resp BP Pulse Ox 98.4 F 75 18 119/55 L 98 03/01/17 07:34 03/01/17 07:34 03/01/17 07:34 03/01/17 07:34 03/01/17 07:34 - Medications Medications: Current Medications Aspirin (Aspirin Chewable) 81 mg PO DAILY [facility] Last Admin: 03/01/17 09:04 Dose: Not Given Atorvastatin Calcium (Lipitor) 10 mg PO DAILY [facility] Last Admin: 03/01/17 09:05 Dose: Not Given Carvedilol (Coreg) 3.125 mg PO Q12 [facility] Last Admin: 03/01/17 08:45 Dose: Not Given Clopidogrel Bisulfate (Plavix) 75 mg PO DAILY [facility] Last Admin: 03/01/17 09:03 Dose: Not Given Docusate Sodium (Colace) 100 mg PO BID [facility] Last Admin: 03/01/17 09:04 Dose: Not Given Epoetin Avery (Procrit) 20,000 unit IV MWF [facility] Last Admin: 03/01/17 09:04 Dose: 20,000 unit Fluconazole (Diflucan) 100 mg PO DAILY [facility] Last Admin: 03/01/17 08:46 Dose: 100 mg Heparin Sodium (Porcine) (Heparin) 5,000 units SC Q12 [facility] PRN Reason: Protocol Last Admin: 03/01/17 09:04 Dose: Not Given Home Med (Vorapaxar Sulfate [Zontivity]) 2.08 mg PO DAILY [facility] Last Admin: 03/01/17 09:05 Dose: Not Given Cefepime HCl 1 gm/ Sodium (Chloride) 100 mls @ 100 mls/hr IVPB DAILY [facility] Last Admin: 03/01/17 09:05 Dose: Not Given Vancomycin HCl 500 mg/ Sodium (Chloride) 100 mls @ 100 mls/hr IVPB F [facility] Last Admin: 03/01/17 08:51 Dose: 100 mls/hr Iron Sucrose 100 mg/ Sodium (Chloride) 105 mls @ 105 mls/hr IVPB [facility] ONE Stop: 03/01/17 11:42 Insulin Human Regular (Humulin R) 0 units SC ACCU-CHECK [facility] PRN Reason: Protocol Last Admin: 03/01/17 08:46 Dose: 2 units Lactulose (Enulose) 20 gm PO DAILY PRN PRN Reason: Constipation Last Admin: 02/27/17 16:57 Dose: 20 gm Nifedipine (Procardia Xl) 60 mg PO DAILY [facility] Last Admin: 03/01/17 09:04 Dose: Not Given Ondansetron HCl (Zofran Inj) 4 mg IVP Q6 PRN PRN Reason: Nausea/Vomiting Last Admin: 02/28/17 16:12 Dose: 4 mg Oxycodone/Acetaminophen (Percocet 5/325 Mg Tab) 2 tab PO Q4 PRN PRN Reason: Pain, severe (8-10) Stop: 03/01/17 13:46 Last Admin: 02/27/17 09:22 Dose: 2 tab Pantoprazole Sodium (Protonix Ec Tab) 40 mg PO DAILY [facility] Last Admin: 03/01/17 09:05 Dose: Not Given Sevelamer HCl (Renagel) 2,400 mg PO TID [facility] Last Admin: 03/01/17 09:05 Dose: Not Given Sitagliptin Phosphate (Januvia) 50 mg PO DAILY [facility] Last Admin: 03/01/17 09:05 Dose: Not Given Tramadol HCl (Ultram) 50 mg PO Q6 PRN PRN Reason: Pain, moderate (4-7) Last Admin: 03/01/17 08:50 Dose: 50 mg Vitamin B Complex/Vit C/Folic Acid (Nephro-Niko) 1 tab PO DAILY [facility] Last Admin: 03/01/17 09:05 Dose: Not Given - Labs Labs: 03/01/17 05:20 03/01/17 05:20 PT 16.1 Seconds (9.8-13.1) H 02/26/17 13:10 INR 1.4 (0.9-1.2) H 02/26/17 13:10 APTT 31.1 Seconds (25.6-37.1) 02/26/17 13:10 - Respiratory Exam Respiratory Exam: Clear to Ausculation Bilateral - Cardiovascular Exam Cardiovascular Exam: REGULAR RHYTHM, +S1, +S2 - Extremities Exam Additional comments: NO LE EDEMA - Additional Findings Additional findings: IR NOTE SEEN WITH REMOVAL OF 1800 CC OF FLUID POST THORACENTESIS CXR WITH SIGNIFICANT DECREASE IN SIZE OF RIGHT PLEURAL EFFUSION Assessment and Plan - Assessment and Plan (Free Text) Assessment: CAD HYPERTENSION CRF ON HS DM PAD Plan: CONTINUE CARVEDILOL, PROCARDIA, ASPIRIN, CLOPIDOGREL, HEPARIN AND ANTIBIOTICS FOR PRABLE DISCHARGE BACK TO [facility]
--- NOTE | 2017-03-01 11:36 | CP.PCM.PN ---
Subjective - Date & Time of Evaluation Date of Evaluation: 03/01/17 Time of Evaluation: 10:00 - Subjective Subjective: He was seen on hemodialysis He appears to be comfortable No chest pain no shortness of breath Still complaining of pain of the right foot intermittently Objective - Vital Signs/Intake and Output Vital Signs (last 24 hours): Temp Pulse Resp BP Pulse Ox 98.4 F 75 18 119/55 L 98 03/01/17 07:34 03/01/17 07:34 03/01/17 07:34 03/01/17 07:34 03/01/17 07:34 - Medications Medications: Current Medications Aspirin (Aspirin Chewable) 81 mg PO DAILY [facility] Last Admin: 03/01/17 09:04 Dose: Not Given Atorvastatin Calcium (Lipitor) 10 mg PO DAILY [facility] Last Admin: 03/01/17 09:05 Dose: Not Given Carvedilol (Coreg) 3.125 mg PO Q12 [facility] Last Admin: 03/01/17 08:45 Dose: Not Given Clopidogrel Bisulfate (Plavix) 75 mg PO DAILY [facility] Last Admin: 03/01/17 09:03 Dose: Not Given Docusate Sodium (Colace) 100 mg PO BID [facility] Last Admin: 03/01/17 09:04 Dose: Not Given Epoetin Avery (Procrit) 20,000 unit IV MWF [facility] Last Admin: 03/01/17 09:04 Dose: 20,000 unit Fluconazole (Diflucan) 100 mg PO DAILY [facility] Last Admin: 03/01/17 08:46 Dose: 100 mg Heparin Sodium (Porcine) (Heparin) 5,000 units SC Q12 [facility] PRN Reason: Protocol Last Admin: 03/01/17 09:04 Dose: Not Given Home Med (Vorapaxar Sulfate [Zontivity]) 2.08 mg PO DAILY [facility] Last Admin: 03/01/17 09:05 Dose: Not Given Cefepime HCl 1 gm/ Sodium (Chloride) 100 mls @ 100 mls/hr IVPB DAILY [facility] Last Admin: 03/01/17 09:05 Dose: Not Given Vancomycin HCl 500 mg/ Sodium (Chloride) 100 mls @ 100 mls/hr IVPB F [facility] Last Admin: 03/01/17 08:51 Dose: 100 mls/hr Iron Sucrose 100 mg/ Sodium (Chloride) 105 mls @ 105 mls/hr IVPB [facility] ONE Stop: 03/01/17 11:42 Last Admin: 03/01/17 10:41 Dose: 105 mls/hr Insulin Human Regular (Humulin R) 0 units SC ACCU-CHECK [facility] PRN Reason: Protocol Last Admin: 03/01/17 11:30 Dose: Not Given Lactulose (Enulose) 20 gm PO DAILY PRN PRN Reason: Constipation Last Admin: 02/27/17 16:57 Dose: 20 gm Nifedipine (Procardia Xl) 60 mg PO DAILY [facility] Last Admin: 03/01/17 09:04 Dose: Not Given Ondansetron HCl (Zofran Inj) 4 mg IVP Q6 PRN PRN Reason: Nausea/Vomiting Last Admin: 02/28/17 16:12 Dose: 4 mg Oxycodone/Acetaminophen (Percocet 5/325 Mg Tab) 2 tab PO Q4 PRN PRN Reason: Pain, severe (8-10) Stop: 03/01/17 13:46 Last Admin: 02/27/17 09:22 Dose: 2 tab Pantoprazole Sodium (Protonix Ec Tab) 40 mg PO DAILY [facility] Last Admin: 03/01/17 09:05 Dose: Not Given Sevelamer HCl (Renagel) 2,400 mg PO TID [facility] Last Admin: 03/01/17 09:05 Dose: Not Given Sitagliptin Phosphate (Januvia) 50 mg PO DAILY [facility] Last Admin: 03/01/17 09:05 Dose: Not Given Tramadol HCl (Ultram) 50 mg PO Q6 PRN PRN Reason: Pain, moderate (4-7) Last Admin: 03/01/17 08:50 Dose: 50 mg Vitamin B Complex/Vit C/Folic Acid (Nephro-Niko) 1 tab PO DAILY [facility] Last Admin: 03/01/17 09:05 Dose: Not Given - Labs Labs: 03/01/17 05:20 03/01/17 05:20 PT 16.1 Seconds (9.8-13.1) H 02/26/17 13:10 INR 1.4 (0.9-1.2) H 02/26/17 13:10 APTT 31.1 Seconds (25.6-37.1) 02/26/17 13:10 - Constitutional Appears: No Acute Distress - ENT Exam ENT Exam: Mucous Membranes Moist - Respiratory Exam Respiratory Exam: NORMAL BREATHING PATTERN. absent: Chest Wall Tenderness - Cardiovascular Exam Cardiovascular Exam: REGULAR RHYTHM. absent: Rubs - GI/Abdominal Exam GI & Abdominal Exam: Normal Bowel Sounds - Extremities Exam Extremities Exam: absent: Calf Tenderness - Back Exam Back Exam: absent: CVA tenderness (L), CVA tenderness (R) - Neurological Exam Neurological Exam: Alert Assessment and Plan (1) Wound infection Status: Deleted (2) CKD (chronic kidney disease) stage 5, GFR less than 15 ml/min Assessment & Plan: End stage renal disease receiving hemodialysis as scheduled Vital signs stable Potassium bath 2 mEq Sodium bath 138 Bicarbonate bath 34 Status post thoracocentesis and removal of 1800 mL of fluid Cytology pending Patient started on intravenous iron as of today during dialysis. Status: Acute
[2017-03-01 12:11] VITALS: BMI 22.6
--- NOTE | 2017-03-01 12:17 | CP.PCM.PN ---
Subjective - Date & Time of Evaluation Date of Evaluation: 03/01/17 Time of Evaluation: 12:20 - Subjective Subjective: S/P THORACENTESES WITH DRAINAGE OF 1800CC OF EXUDATIVE PLEURAL FLUID FEELS WELL NO CHEST PAINS/SOB Objective - Vital Signs/Intake and Output Vital Signs (last 24 hours): Temp Pulse Resp BP Pulse Ox 98.4 F 75 18 119/55 L 98 03/01/17 07:34 03/01/17 07:34 03/01/17 07:34 03/01/17 07:34 03/01/17 07:34 - Medications Medications: Current Medications Aspirin (Aspirin Chewable) 81 mg PO DAILY [facility] Last Admin: 03/01/17 09:04 Dose: Not Given Atorvastatin Calcium (Lipitor) 10 mg PO DAILY [facility] Last Admin: 03/01/17 09:05 Dose: Not Given Carvedilol (Coreg) 3.125 mg PO Q12 [facility] Last Admin: 03/01/17 08:45 Dose: Not Given Clopidogrel Bisulfate (Plavix) 75 mg PO DAILY [facility] Last Admin: 03/01/17 09:03 Dose: Not Given Docusate Sodium (Colace) 100 mg PO BID [facility] Last Admin: 03/01/17 09:04 Dose: Not Given Epoetin Avery (Procrit) 20,000 unit IV MWF [facility] Last Admin: 03/01/17 09:04 Dose: 20,000 unit Fluconazole (Diflucan) 100 mg PO DAILY [facility] Last Admin: 03/01/17 08:46 Dose: 100 mg Heparin Sodium (Porcine) (Heparin) 5,000 units SC Q12 [facility] PRN Reason: Protocol Last Admin: 03/01/17 09:04 Dose: Not Given Home Med (Vorapaxar Sulfate [Zontivity]) 2.08 mg PO DAILY [facility] Last Admin: 03/01/17 09:05 Dose: Not Given Cefepime HCl 1 gm/ Sodium (Chloride) 100 mls @ 100 mls/hr IVPB DAILY [facility] Last Admin: 03/01/17 09:05 Dose: Not Given Vancomycin HCl 500 mg/ Sodium (Chloride) 100 mls @ 100 mls/hr IVPB MWF [facility] Last Admin: 03/01/17 08:51 Dose: 100 mls/hr Insulin Human Regular (Humulin R) 0 units SC ACCU-CHECK [facility] PRN Reason: Protocol Last Admin: 03/01/17 11:30 Dose: Not Given Lactulose (Enulose) 20 gm PO DAILY PRN PRN Reason: Constipation Last Admin: 02/27/17 16:57 Dose: 20 gm Nifedipine (Procardia Xl) 60 mg PO DAILY [facility] Last Admin: 03/01/17 09:04 Dose: Not Given Ondansetron HCl (Zofran Inj) 4 mg IVP Q6 PRN PRN Reason: Nausea/Vomiting Last Admin: 02/28/17 16:12 Dose: 4 mg Oxycodone/Acetaminophen (Percocet 5/325 Mg Tab) 2 tab PO Q4 PRN PRN Reason: Pain, severe (8-10) Stop: 03/01/17 13:46 Last Admin: 02/27/17 09:22 Dose: 2 tab Pantoprazole Sodium (Protonix Ec Tab) 40 mg PO DAILY [facility] Last Admin: 03/01/17 09:05 Dose: Not Given Sevelamer HCl (Renagel) 2,400 mg PO TID [facility] Last Admin: 03/01/17 09:05 Dose: Not Given Sitagliptin Phosphate (Januvia) 50 mg PO DAILY [facility] Last Admin: 03/01/17 09:05 Dose: Not Given Tramadol HCl (Ultram) 50 mg PO Q6 PRN PRN Reason: Pain, moderate (4-7) Last Admin: 03/01/17 08:50 Dose: 50 mg Vitamin B Complex/Vit C/Folic Acid (Nephro-Niko) 1 tab PO DAILY [facility] Last Admin: 03/01/17 09:05 Dose: Not Given - Labs Labs: 03/01/17 05:20 03/01/17 05:20 PT 16.1 Seconds (9.8-13.1) H 02/26/17 13:10 INR 1.4 (0.9-1.2) H 02/26/17 13:10 APTT 31.1 Seconds (25.6-37.1) 02/26/17 13:10 - Constitutional Appears: No Acute Distress - Head Exam Head Exam: ATRAUMATIC, NORMAL INSPECTION, NORMOCEPHALIC - Eye Exam Eye Exam: EOMI, Normal appearance, PERRL Pupil Exam: NORMAL ACCOMODATION, PERRL - ENT Exam ENT Exam: Mucous Membranes Moist, Normal Exam - Neck Exam Neck Exam: Full ROM, Normal Inspection. absent: Lymphadenopathy - Respiratory Exam Respiratory Exam: Prolonged Expiratory Phase, NORMAL BREATHING PATTERN Additional comments: BASAL DULLNESS - Cardiovascular Exam Cardiovascular Exam: REGULAR RHYTHM, +S1, +S2. absent: Murmur - GI/Abdominal Exam GI & Abdominal Exam: Soft, Normal Bowel Sounds. absent: Tenderness - Rectal Exam Rectal Exam: NORMAL INSPECTION - Extremities Exam Extremities Exam: Full ROM, Normal Capillary Refill, Normal Inspection. absent : Joint Swelling, Pedal Edema - Back Exam Back Exam: NORMAL INSPECTION - Neurological Exam Neurological Exam: Alert, Awake, CN II-XII Intact, Normal Gait, Oriented x3 - Psychiatric Exam Psychiatric exam: Normal Affect, Normal Mood - Skin Skin Exam: Dry, Intact, Normal Color, Warm Assessment and Plan - Assessment and Plan (Free Text) Assessment: EXUDATIVE PLEURAL EFFUSION PROBABLY DUE TO PNEUMONIA AND CHF DOUBT MALIGNANCY Plan: OK TO D/C TO [facility] WITH IV ANTIBIOTICS REVIEW PLEURAL FLUID CYTOLOGY WHEN READY
[2017-03-01] MEDS ORDERED: Povidone Iodine Topical 10% Sol ONE (18:24)
--- NOTE | 2017-03-01 18:46 | RAD ---
PROCEDURE: Chest x-ray four views HISTORY: RIGHT pleural effusion COMPARISON: 02/28/2017 TECHNIQUE: AP and lateral views with bilateral lateral decubitus views. FINDINGS: There is a small right pleural effusion. There may be a small amount of loculation of the right pleural fluid laterally. There is no evidence of left pleural effusion. There is no acute infiltrate. The heart is mildly enlarged. Patient is status post CABG. A valvular prosthesis is noted. AICD noted. No osseous abnormality identified. IMPRESSION: Small right pleural effusion with possible small amount of loculation. No acute infiltrate.
[2017-03-02] MEDS: Multivitamin Vitamin B Complex (Nephro-Vite) Tab PO SCH (08:09)
[2017-03-02] MEDS: Insulin Regular 100 units/ml SC SCH (08:12)
[2017-03-02] MEDS: Cefepime 1 GM in Sodium Chloride 0.9% 100 ML IVPB SCH (08:13)
[2017-03-02] MEDS: Pantoprazole 40 mg EC Tab PO SCH (08:14)
[2017-03-02] MEDS: NIFEdipine 60 mg ER Tab PO SCH (08:14)
[2017-03-02] MEDS: VORAPAXAR SULFATE 2.08 MG PO SCH (08:14)
[2017-03-02 08:32] VITALS: BP 109/52; PULSE 82; RESP 20; TEMP 97.3; O2SAT 90
--- NOTE | 2017-03-02 10:38 | CP.PCM.PN ---
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 Patient is seen resting comfortably, AAOx3 and NAD. Patient denies any acute events overnight. Patient denies pain to his right foot today. Patient denies N/V/F/D/C /SOB/CP. No other pedal complaints at this time. Objective - Vital Signs/Intake and Output Vital Signs (last 24 hours): Temp Pulse Resp BP Pulse Ox 97.3 F L 82 20 109/52 L 90 L 03/02/17 08:32 03/02/17 08:32 03/02/17 08:32 03/02/17 08:32 03/02/17 08:32 - Medications Medications: Current Medications Aspirin (Aspirin Chewable) 81 mg PO DAILY [facility] Last Admin: 03/02/17 08:09 Dose: 81 mg Atorvastatin Calcium (Lipitor) 10 mg PO DAILY [facility] Last Admin: 03/02/17 08:13 Dose: 10 mg Carvedilol (Coreg) 3.125 mg PO Q12 [facility] Last Admin: 03/02/17 08:09 Dose: 3.125 mg Clopidogrel Bisulfate (Plavix) 75 mg PO DAILY [facility] Last Admin: 03/02/17 08:13 Dose: 75 mg Docusate Sodium (Colace) 100 mg PO BID [facility] Last Admin: 03/02/17 08:09 Dose: 100 mg Epoetin Avery (Procrit) 20,000 unit IV MWF [facility] Last Admin: 03/01/17 09:04 Dose: 20,000 unit Fluconazole (Diflucan) 100 mg PO DAILY [facility] Last Admin: 03/02/17 08:09 Dose: 100 mg Heparin Sodium (Porcine) (Heparin) 5,000 units SC Q12 [facility] PRN Reason: Protocol Last Admin: 03/02/17 08:10 Dose: 5,000 units Home Med (Vorapaxar Sulfate [Zontivity]) 2.08 mg PO DAILY [facility] Last Admin: 03/02/17 08:14 Dose: 2.08 mg Cefepime HCl 1 gm/ Sodium (Chloride) 100 mls @ 100 mls/hr IVPB DAILY [facility] Last Admin: 03/02/17 08:13 Dose: 100 mls/hr Vancomycin HCl 500 mg/ Sodium (Chloride) 100 mls @ 100 mls/hr IVPB MWF [facility] Last Admin: 03/01/17 08:51 Dose: 100 mls/hr Insulin Human Regular (Humulin R) 0 units SC ACCU-CHECK [facility] PRN Reason: Protocol Last Admin: 03/02/17 08:12 Dose: 3 units Lactulose (Enulose) 20 gm PO DAILY PRN PRN Reason: Constipation Last Admin: 02/27/17 16:57 Dose: 20 gm Nifedipine (Procardia Xl) 60 mg PO DAILY [facility] Last Admin: 03/02/17 08:14 Dose: 60 mg Ondansetron HCl (Zofran Inj) 4 mg IVP Q6 PRN PRN Reason: Nausea/Vomiting Last Admin: 03/01/17 14:42 Dose: 4 mg Pantoprazole Sodium (Protonix Ec Tab) 40 mg PO DAILY [facility] Last Admin: 03/02/17 08:14 Dose: 40 mg Sevelamer HCl (Renagel) 2,400 mg PO TID [facility] Last Admin: 03/02/17 08:08 Dose: 2,400 mg Sitagliptin Phosphate (Januvia) 50 mg PO DAILY [facility] Last Admin: 03/02/17 08:13 Dose: 50 mg Tramadol HCl (Ultram) 50 mg PO Q6 PRN PRN Reason: Pain, moderate (4-7) Last Admin: 03/01/17 08:50 Dose: 50 mg Vitamin B Complex/Vit C/Folic Acid (Nephro-Niko) 1 tab PO DAILY [facility] Last Admin: 03/02/17 08:09 Dose: 1 tab - Labs Labs: 03/01/17 05:20 03/01/17 05:20 PT 16.1 Seconds (9.8-13.1) H 02/26/17 13:10 INR 1.4 (0.9-1.2) H 02/26/17 13:10 APTT 31.1 Seconds (25.6-37.1) 02/26/17 13:10 - Constitutional Appears: Well, Non-toxic, No Acute Distress - Extremities Exam Additional comments: Right lower extremity focused physical exam: VASC: DP/PT pulses are palpable 2/4, MECHANICAL TECH: < 3 sec x 4, Temperature gradient: cool to cool, no edema noted DERM: Surgical site is well coapted and sutures are intact, no dehiscence, no active drainage, no malodor, no erythema noted, mild maceration noted to skin surrounding incision site, de-roofed bullae noted on the plantar medial arch with a granular base, no drainage noted to the bullae, no clinical suspicion of infection noted NEURO: grossly sensation intact ORTHO: No pain on palpation noted to surgical site or bullae of plantar medial arch - Neurological Exam Neurological Exam: Alert, Awake, Oriented x3 - Psychiatric Exam Psychiatric exam: Normal Affect, Normal Mood Assessment and Plan - Assessment and Plan (Free Text) Assessment: 76 year old male POD #14 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 Discussed with attending, Dr. Lebron. Charts, labs, vitals reviewed: afebrile, no new WBC reading at time of this note (14.1 yesterday) Surgical incision dressed with betadine soaked 4x4 gauze, kerlix, and light BARI with Telfa placed over bullae first. Pt is WBAT to right heel with surgical shoe and FWB to LLE. Continue abx per ID: Cefepime, Vancomycin per Dr. Muniz Patient to be DC to half-way in coming days per Dr. Huff Patient is stable from podiatry standpoint. Podiatry will continue to follow while in house.
== END 2017-03-02 12:59 | DRG 314 ==
LOC: H.ER 20:37 → H.ERHOLD 02-22 01:45 → H.MEDSURG1 02-22 04:58
PROVIDERS: ADMIT Family Medicine; ATTEND Family Medicine
PROC: 0H9MXZZ Drainage of Right Foot Skin, External Approach (ICD-10-PCS; principal; 2017-02-23)
PROC: 5A1D60Z (ICD-10-PCS; 2017-02-25)
PROC: 0W993ZZ Drainage of Right Pleural Cavity, Percutaneous Approach (ICD-10-PCS; 2017-02-28)
DX: T82.514A Breakdown (mechanical) of infusion catheter, initial encounter (principal); J18.9 Pneumonia, unspecified organism; I13.2 Hypertensive heart and chronic kidney disease with heart failure and with stage 5 chronic kidney disease, or end stage renal disease; J91.8 Pleural effusion in other conditions classified elsewhere; N18.6 End stage renal disease; E11.22 Type 2 diabetes mellitus with diabetic chronic kidney disease; I50.22 Chronic systolic (congestive) heart failure; J98.11 Atelectasis; I48.91 Unspecified atrial fibrillation; D63.1 Anemia in chronic kidney disease; Z95.1 Presence of aortocoronary bypass graft; I25.10 Atherosclerotic heart disease of native coronary artery without angina pectoris; Z95.5 Presence of coronary angioplasty implant and graft; Z99.2 Dependence on renal dialysis; E78.00 Pure hypercholesterolemia, unspecified; E78.5 Hyperlipidemia, unspecified; I25.5 Ischemic cardiomyopathy; I73.9 Peripheral vascular disease, unspecified; Z89.421 Acquired absence of other right toe(s); R23.8 Other skin changes; I25.2 Old myocardial infarction

== ENCOUNTER 2017-03-11 15:53 | Inpatient (IN) | payer MEDICARE, BC ==
[2017-03-11 15:54] VITALS: BMI 22.6
[2017-03-11] MEDS ORDERED: Sodium Chloride 0.9% 250 ML IV STA (16:27)
[2017-03-11 16:37] LABS: ABG ALLEN TEST YES; ARTERIAL BLOOD GAS HCO3 27.3 mmol/L (21-28); ARTERIAL BLOOD GAS O2 SAT 93.3 % (95-98); ARTERIAL BLOOD GAS PCO2 36 mm/Hg (35-45); ARTERIAL BLOOD GAS PH 7.48 (7.35-7.45); ARTERIAL BLOOD GAS PO2 47 mm/Hg (80-100); ARTERIAL BLOOD GAS TCO2 27.9 mmol/L (22-28)
--- NOTE | 2017-03-11 17:05 | ED PDOC ---
HPI: Altered Mental Status Time Seen by Provider: 03/11/17 16:07 Chief Complaint (Nursing): Altered Mental Status Chief Complaint (Provider): Altered Mental Status History Per: Other (FCI) History/Exam Limitations: Other (Altered mental status) Current Symptoms Are (Timing): Still Present Description Of Symptoms: Confused Additional Complaint(s): 76 y/o female presents to the emergency department [facility] with altered mental status. Patient unable to give history and is only provided through nursing sheets. Patient is confused and not conversive. Past Medical History Reviewed: Historical Data, Nursing Documentation, Vital Signs Vital Signs: Last Vital Signs Temp 98.6 F 03/11/17 15:55 Pulse 94 H 03/11/17 15:55 Resp 20 03/11/17 15:55 BP 94/60 L 03/11/17 15:55 Pulse Ox 91 L 03/11/17 15:55 - Medical History PMH: Atrial Fibrillation, CAD, CHF, HTN, Hypercholesterolemia, End Stage Renal Disease (MWF), Chronic Kidney Disease (ESRD) - Surgical History Surgical History: CABG, Coronary Stent, Pacemaker - Family History Family History: States: Unknown Family Hx - Living Arrangements Living Arrangements: Skilled Nursing/Assist Lvng - Social History Current smoker - smoking cessation education provided: No Alcohol: None Drugs: Denies - Home Medications Home Medications: Ambulatory Orders Medication Instructions Recorded Clopidogrel [Plavix] 75 mg PO DAILY 11/26/14 NIFEdipine ER [Procardia XL] 60 mg PO DAILY 11/26/14 Albiglutide [Tanzeum] 30 mg SC TU 03/20/16 B Complex W-C No.20/Folic Acid 1 cap PO DAILY 03/20/16 [Renal Caps Softgel] SITagliptin [Januvia] 50 mg PO DAILY 03/20/16 Sevelamer Carbonate [Renvela] 2,400 mg PO TID 03/20/16 Atorvastatin [Lipitor] 10 mg PO HS 02/06/17 Pantoprazole Sodium [Protonix] 40 mg PO DAILY 02/06/17 Vorapaxar Sulfate [Zontivity] 2.08 mg PO DAILY 02/06/17 Aspirin [Ecotrin] 81 mg PO DAILY 02/20/17 Carvedilol [Coreg] 3.125 mg PO Q12 tab 02/20/17 Cefepime 1gm in NS 100ml [Maxipime 1 gm IVPB DAILY #7 bag 02/20/17 1gm] Insulin Glargine, Recombina 6 units SUBCUT HS 02/22/17 [Lantus] Acetaminophen [Tylenol 325mg tab] 650 mg PO Q4H PRN 03/11/17 Docusate [Colace] 200 mg PO HS 03/11/17 Insulin Human Regular [HumuLIN R] 1 - 7 unit SC QID 03/11/17 Megestrol Acetate [Megace] 10 ml PO DAILY 03/11/17 Ondansetron [Zofran Tab] 4 mg PO Q8H PRN 03/11/17 Silver Sulfadiazine 1% [Silvadene 1 appl TOP QSHIFT 03/11/17 1%] - Allergies Allergies/Adverse Reactions: Allergies Allergy/AdvReac Type Severity Reaction Status Date / Time No Known Allergies Allergy Verified 02/06/17 13:47 Review of Systems Review Of Systems: ROS cannot be obtained secondary to pt's inabilty to answer questions. Physical Exam - Reviewed Nursing Documentation Reviewed: Yes Vital Signs Reviewed: Yes - Physical Exam Appears: Positive for: Non-toxic, In Acute Distress (Chronically ill. In mild painful distress. ). Negative for: Well Head Exam: Positive for: ATRAUMATIC, NORMAL INSPECTION, NORMOCEPHALIC Skin: Positive for: Normal Color, Warm, Dry ENT: Positive for: Normal ENT Inspection, Other (Dry mucous membranes) Neck: Positive for: Normal, Supple Cardiovascular/Chest: Positive for: Regular Rate, Rhythm. Negative for: Murmur Respiratory: Positive for: Decreased Breath Sounds (At the bases of the lungs bilaterally. ), Other (Clear at the upper lung albert.). Negative for: Accessory Muscle Use, Respiratory Distress Gastrointestinal/Abdominal: Positive for: Normal Exam, Soft, Other (Subtle ecchymotic lesions to the lower abdominal region consistent with subcutaneous injection.). Negative for: Tenderness Back: Positive for: Other (sacral decub) Extremity: Positive for: Normal ROM, Other (Right foot has a clean dry dressing ; intact. Poor muscle bulk diffusely.) Neurologic/Psych: Positive for: Alert (Speaking unintelligently). Negative for : Motor/Sensory Deficits (No gross sensory deficits. ) - Laboratory Results Result Diagrams: 03/12/17 05:00 03/12/17 05:00 - ECG O2 Sat by Pulse Oximetry: 91 (RA) Pulse Ox Interpretation: Normal - Radiology X-Ray: Interpreted by Me X-Ray Interpretation: Infiltrates - Progress Re-evaluation Time: 21:00 Condition: Unchanged - Critical Care Total Time (In Min): 30 Documented Critical Care: Time excludes all time spent performint seperately billable procedures Medical Decision Making Medical Decision Making: Time: 16:15 Initial impression: Altered Mental Status Initial plan: --Electrocardiogram --ED Urine Dipstick --EKG-ED --Chest Portable (RAD) --Sodium Chloride 250 ml IV 250 mls/hr --Welder Railcar Mechanic CONT --IV Insertion --AccuCheck --Urinalysis STAT --Reevaluation Abnormalities on R lung albert in xray Leukocytosis, anemia (stable), renal failure (stable) CT chest ordered DW Dr Huff PMD. Pt admitted to his service. DW Dr Johnson Cardiology DW findings and plan of care. DW Dr Thornton Podiatry resident for Dr Bernardino Marti Pulmonology Accession No. : [id number] Patient Name / ID : BRADLY GELLER / [id number] Exam Date : 03/11/2017 18:50:11 ( Approved ) Study Comment : Sex / Age : M / 76Y Creator : GERRI BEY Dictator : Certified Driver Examiner : Electronics Detail Draftsperson : GERRI BEY Approver2 : Report Date : 03/11/2017 20:30:00 My Comment : [facility] Division of Radiology [address] [place] [address] Tel. no. Patient Name: DUYEN ABDULLAHI Pt. Address: [address] [place] [address] Med. Rec #: [id number] [place] [address]: Sonu ZEPEDA, Suzanna Araujo Pt Order Location: SADA : 1940 Male Age: 76 Order #: [id number] Reason for exam: RIGHT lung opacity CT Scan CHEST W/O CONTRAST Exam Date: 03/11/17 This imaging exam was performed at [facility] EXAM: CT Chest Without Intravenous Contrast CLINICAL HISTORY: 76 years old, male; Signs and symptoms; Other: Rt lung opacity; Additional info: Right lung opacity TECHNIQUE: Axial computed tomography images of the chest without intravenous contrast. This CT exam was performed using one or more of the following dose reduction techniques: automated exposure control, adjustment of the mA and/or kV according to patient size, and/or use of iterative reconstruction technique. Coronal and sagittal reformatted images were created and reviewed. EXAM DATE/TIME: 03/11/2017 6:21 PM COMPARISON: Prior images are not available for review. FINDINGS: Lungs and pleural spaces: Trachea and main bronchi are patent. There is debris in the distal trachea at the level of the odilon. There is a moderate sized right pleural effusion which appears partially loculated. There is right lower lobe volume loss and consolidation. There are air bronchograms. There is less extensive right middle lobe disease. There are compressive atelectatic changes in the right upper lobe. There is a small left effusion. There is less extensive atelectasis and air space disease in the left lower lobe and lingula. There are multiple small calcified granulomas Heart and vasculature: The heart is enlarged. There are coronary calcifications. Aortic root is mildly prominent 3.8 cm in diameter.Main pulmonary artery measures 3 cm in diameter. There are vascular calcifications. Mediastinum: The esophagus is unremarkable. There is a small hiatal hernia. There is shotty mediastinal nodes. There is a 2.x 1.2 cm precarinal node.Daniela are not optimally evaluated without contrast material. There are multiple clips in the mediastinum Thyroid: Thyroid is not optimally demonstrated. Bones/joints: There are degenerative changes in the osseus structures.There are postsurgical changes of median sternotomy. Soft tissues: unremarkable Upper abdomen: There are no acute abnormalities in the visualized portion of the abdomen. There are splenic granulomas. There is a small amount of fluid in the upper abdomen. Tubes, lines and devices: There is streak artifact from a pacemaker in the left chest wall. There is streak artifact from pacemaker leads. IMPRESSION: Cardiomegaly and atherosclerotic disease status post bypass surgery and pacemaker placement; moderately large right pleural effusion with right lower lobe airspace disease atelectasis and/or infiltrate with less extensive airspace disease in the right middle lobe; small left effusion with left extensive airspace disease in the lingula and left lower lobe; prior granulomatous disease Additional findings as described above. Dictated By: Gerri Bey MD, MD Dictated Date/Time: 03/11/172029 Signed By: Gerri Bey MD Date Signed: 2029 Transcribed By: DILLON Transcribe Date/Time : 03/11/172029 DEANNE/SORAYA Scribe Attestation: Documented by Sonal Mendez, acting as a scribe for Suzanna Ascencio MD. Provider Scribe Attestation: All medical record entries made by the Scribe were at my direction and personally dictated by me. I have reviewed the chart and agree that the record accurately reflects my personal performance of the history, physical exam, medical decision making, and the department course for this patient. I have also personally directed, reviewed, and agree with the discharge instructions and disposition. Disposition - Clinical Impression Clinical Impression: Pneumonia, ESRD needing dialysis, Altered mental status, Gangrene of toe - Patient ED Disposition Is Patient to be Admitted: Yes Counseled Patient/Family Regarding: Studies Performed, Diagnosis - Disposition Disposition Time: 18:00 Condition: FAIR - Pt Status Changed To: Hospital Disposition Of: Inpatient - Admit Certification Admit to Inpatient:: After my assessment, the patient will require hospitalization for at least two midnights. This is because of the severity of symptoms shown, intensity of services needed, and/or the medical risk in this patient being treated as an outpatient. - POA Present On Arrival: Falls Or Trauma, Pressure Ulcer (sacral)
[2017-03-11 17:35] LABS: BASO # 0.1 K/uL (0.0-0.2); BASO % 0.3 % (0.0-2.0); EOS % 0.2 % (0.0-4.0); HEMOGLOBIN 8.5 g/dL (12.0-18.0); LYMPH # 0.8 K/uL (1.0-4.3); LYMPH % 3.8 % (20.0-40.0); MEAN CELL VOLUME 69.8 fl (80.0-94.0); MEAN CORPUSCULAR HEMOGLOBIN 20.6 pg (27.0-31.0); MEAN CORPUSCULAR HGB CONC 29.5 g/dL (33.0-37.0); MEAN PLATELET VOLUME 9.2 fl (7.2-11.7); MONO # 1.3 K/uL (0.0-0.8); MONO % 5.9 % (0.0-10.0); NEUT # 19.1 K/uL (1.8-7.0); NEUT % 89.8 % (50.0-75.0); NRBC % 0.1 % (0.0-0.0); PLATELET COUNT 251 K/uL (130-400); RBC 4.12 Mil/uL (4.40-5.90); WHITE BLOOD COUNT 21.3 K/uL (4.8-10.8)
[2017-03-11 17:57] LABS: ALBUMIN 3.3 g/dL (3.5-5.0); CALCIUM 8.3 mg/dL (8.4-10.2)
[2017-03-11 18:00] LABS: ALB/GLOB RATIO 0.8 (1.0-2.1)
[2017-03-11 18:12] LABS: TROPONIN I 0.036 ng/mL (0.00-0.120)
[2017-03-11] MEDS ORDERED: levoFLOXacin 750 mg in D5W 150 ML BAG IVPB STA (18:19)
[2017-03-11 18:42] LABS: INR 1.8 (0.9-1.2); PARTIAL THROMBOPLASTIN TIME 30.7 Seconds (25.6-37.1); PROTHROMBIN TIME 20.2 Seconds (9.8-13.1)
[2017-03-11 19:37] LABS: BANDS 4 % (0-2); EOSINOPHIL 1 % (0-7); LYMPHOCYTE 7 % (20-50); MONOCYTE 9 % (0-10); NEUTROPHIL 79 % (42-75); PLATELET ESTIMATE NORMAL (NORMAL); TOTAL CELLS COUNTED 100
[2017-03-11 19:38] LABS: ANISOCYTOSIS MODERATE; MICROCYTOSIS SLIGHT; POIKILOCYTOSIS SLIGHT
[2017-03-11 19:39] LABS: BURR CELLS SLIGHT; GIANT PLATELETS PRESENT; LARGE PLATELETS PRESENT; TEARDROP CELLS SLIGHT
--- NOTE | 2017-03-11 20:30 | CT ---
EXAM: CT Chest Without Intravenous Contrast CLINICAL HISTORY: 76 years old, male; Signs and symptoms; Other: Rt lung opacity; Additional info: Right lung opacity TECHNIQUE: Axial computed tomography images of the chest without intravenous contrast. This CT exam was performed using one or more of the following dose reduction techniques: automated exposure control, adjustment of the mA and/or kV according to patient size, and/or use of iterative reconstruction technique. Coronal and sagittal reformatted images were created and reviewed. EXAM DATE/TIME: 03/11/2017 6:21 PM COMPARISON: Prior images are not available for review. FINDINGS: Lungs and pleural spaces: Trachea and main bronchi are patent. There is debris in the distal trachea at the level of the odilon. There is a moderate sized right pleural effusion which appears partially loculated. There is right lower lobe volume loss and consolidation. There are air bronchograms. There is less extensive right middle lobe disease. There are compressive atelectatic changes in the right upper lobe. There is a small left effusion. There is less extensive atelectasis and air space disease in the left lower lobe and lingula. There are multiple small calcified granulomas Heart and vasculature: The heart is enlarged. There are coronary calcifications. Aortic root is mildly prominent 3.8 cm in diameter.Main pulmonary artery measures 3 cm in diameter. There are vascular calcifications. Mediastinum: The esophagus is unremarkable. There is a small hiatal hernia. There is shotty mediastinal nodes. There is a 2.x 1.2 cm precarinal node.Daniela are not optimally evaluated without contrast material. There are multiple clips in the mediastinum Thyroid: Thyroid is not optimally demonstrated. Bones/joints: There are degenerative changes in the osseus structures.There are postsurgical changes of median sternotomy. Soft tissues: unremarkable Upper abdomen: There are no acute abnormalities in the visualized portion of the abdomen. There are splenic granulomas. There is a small amount of fluid in the upper abdomen. Tubes, lines and devices: There is streak artifact from a pacemaker in the left chest wall. There is streak artifact from pacemaker leads. IMPRESSION: Cardiomegaly and atherosclerotic disease status post bypass surgery and pacemaker placement; moderately large right pleural effusion with right lower lobe airspace disease atelectasis and/or infiltrate with less extensive airspace disease in the right middle lobe; small left effusion with left extensive airspace disease in the lingula and left lower lobe; prior granulomatous disease Additional findings as described above.
--- NOTE | 2017-03-11 21:04 | CP.PCM.CON ---
History of Present Illness - History of Present Illness History of Present Illness: 76 year old male patient seen in [facility] ER today. Pt is 3 weeks s/p right 2nd digit amputation (DOS: 02/16/17). Pt in altered mental status and is unable to clearly rely past medical history and history of present illness. Patient is seen resting comfortably and in no acute distress. Pt was set to followup with Dr. Lebron for post-operative check. Pt sent from nursing facility due to altered mental status. Past Patient History - Infectious Disease Hx of Infectious Diseases: None - Past Medical History & Family History Past Medical History?: Yes - Past Social History Alcohol: None Drugs: Denies - CARDIAC Hx Atrial Fibrillation: Yes Hx Congestive Heart Failure: Yes Hx Hypercholesterolemia: Yes Hx Hypertension: Yes Hx Pacemaker: Yes - PULMONARY Hx Respiratory Disorders: Yes (pleural effusion) - HEENT Hx HEENT Problems: No - RENAL Hx Chronic Kidney Disease: Yes (ESRD) - ENDOCRINE/METABOLIC Hx Endocrine Disorders: Yes - HEMATOLOGICAL/ONCOLOGICAL Hx Blood Disorders: No - INTEGUMENTARY Hx Dermatological Problems: No - MUSCULOSKELETAL/RHEUMATOLOGICAL Hx Falls: Yes - GASTROINTESTINAL Hx Gastrointestinal Disorders: No - GENITOURINARY/GYNECOLOGICAL Hx Genitourinary Disorders: No - PSYCHIATRIC Hx Psychophysiologic Disorder: No Hx Substance Use: No - SURGICAL HISTORY Hx Coronary Artery Bypass Graft: Yes Hx Coronary Stent: Yes - ANESTHESIA Hx Anesthesia: Yes Hx Anesthesia Reactions: No Hx Malignant Hyperthermia: No Meds Allergies/Adverse Reactions: Allergies Allergy/AdvReac Type Severity Reaction Status Date / Time No Known Allergies Allergy Verified 02/06/17 13:47 Physical Exam - Constitutional Appears: Non-toxic, No Acute Distress - Extremities Exam Additional comments: Right lower extremity focused exam: VASC: DP pulse non palpable, PT pulses are palpable 1/4, 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 All sutures are intact, no active drainage, no malodor, no erythema noted, moderate tere-wound maceration noted to skin surrounding incision site. Fibro-granular woud bases noted. De-roofed bullae noted on the plantar medial arch with a [id number] base. bulla base is absent active drainage, however underlying fluctuance noted. NEURO: grossly sensation intact ORTHO: Gross abscence of 2nd digit noted. No pain on palpation noted to surgical site. 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 Chart, labs, and vitals reviewed. Afebrile, WBC=21.3K Discussed with Dr. Lebron, who endorsed the following plan. Pt admitted for pneumonia, which is likely source of leukocytosis. -Radiographs ordered to r/o gas. -Right foot wound cultures taken from amputation site and form bulla site: results pending. -Ordered santyl for use to amputation site. Cleansed wounds sites with sterile saline. Dressed with sterile saline wet-to- dry dressing & DSD. Consult placed to vascular Dr. Ferris. Continue IV abx per primary provider. Podiatry to continue to follow pt while inhouse. - Date & Time Date: 03/12/17 Time: 20:25
[2017-03-11] MEDS ORDERED: levoFLOXacin 750 mg in D5W 750 MG/150 ML BAG IVPB ONE (21:32)
[2017-03-11] MEDS ORDERED: Silver Sulfadiazine 1% CREAM (50 gm) TOP SCH (23:30)
[2017-03-12] MEDS: Insulin Regular 100 units/ml SC SCH ×4 (06:50→22:35)
[2017-03-12 07:10] LABS: HEMOGLOBIN 8.1 g/dL (12.0-18.0); MEAN CELL VOLUME 69.7 fl (80.0-94.0); MEAN CORPUSCULAR HEMOGLOBIN 20.5 pg (27.0-31.0); MEAN CORPUSCULAR HGB CONC 29.5 g/dL (33.0-37.0); RBC 3.94 Mil/uL (4.40-5.90); RED CELL DISTRIBUTION WIDTH 23.7 % (11.5-14.5); WHITE BLOOD COUNT 17.6 K/uL (4.8-10.8)
[2017-03-12 07:17] LABS: ALB/GLOB RATIO 0.8 (1.0-2.1); ALBUMIN 3.2 g/dL (3.5-5.0); CALCIUM 8.7 mg/dL (8.4-10.2)
--- NOTE | 2017-03-12 08:00 | CP.PCM.CON ---
History of Present Illness - History of Present Illness History of Present Illness: 76 YR OLD MALE WHO IS [id number] FOR PULMONARY EVALUATION BECAUSE OF RIGHT PLEURAL EFFUSION.THE PATIENT IS CONFUSED AND OFFERS NO HISTORY.NOTES INDICATE THAT PT WAS TRANSFERRED FROM THE CARE HOME FOR EVALUATION OF ALTERED MENTAL STATUS. HE WAS SEEN BY ME ON A PRIOR HOSPITAL VISIT FOR SIMILAR PROBLEMS AND UNDERWENT AN U/S GUIDED THORACENTESES. HX OF ESRD/ASHD/?PNEUMONIA/FOOT SURGERY HE IS PRESENTLY LYING COMFORTABLY IN BED IN NO APPARENT DISTRESS. Past Patient History - Infectious Disease Hx of Infectious Diseases: None - Past Medical History & Family History Past Medical History?: Yes - Past Social History Alcohol: None Drugs: Denies - CARDIAC Hx Atrial Fibrillation: Yes Hx Congestive Heart Failure: Yes Hx Hypercholesterolemia: Yes Hx Hypertension: Yes Hx Pacemaker: Yes - PULMONARY Hx Respiratory Disorders: Yes (pleural effusion) - HEENT Hx HEENT Problems: No - RENAL Hx Chronic Kidney Disease: Yes (ESRD) - ENDOCRINE/METABOLIC Hx Endocrine Disorders: Yes - HEMATOLOGICAL/ONCOLOGICAL Hx Blood Disorders: No - INTEGUMENTARY Hx Dermatological Problems: No - MUSCULOSKELETAL/RHEUMATOLOGICAL Hx Falls: Yes - GASTROINTESTINAL Hx Gastrointestinal Disorders: No - GENITOURINARY/GYNECOLOGICAL Hx Genitourinary Disorders: No - PSYCHIATRIC Hx Psychophysiologic Disorder: No Hx Substance Use: No - SURGICAL HISTORY Hx Coronary Artery Bypass Graft: Yes Hx Coronary Stent: Yes - ANESTHESIA Hx Anesthesia: Yes Hx Anesthesia Reactions: No Hx Malignant Hyperthermia: No Meds Allergies/Adverse Reactions: Allergies Allergy/AdvReac Type Severity Reaction Status Date / Time No Known Allergies Allergy Verified 02/06/17 13:47 - Medications Medications: Current Medications Acetaminophen (Tylenol 325mg Tab) 650 mg PO Q4H PRN PRN Reason: Pain, Mild (1-3) Aspirin (Ecotrin) 81 mg PO DAILY ON LICENSE OF [facility] Atorvastatin Calcium (Lipitor) 10 mg PO HS ON LICENSE OF [facility] Carvedilol (Coreg) 3.125 mg PO Q12 ON LICENSE OF [facility] Clopidogrel Bisulfate (Plavix) 75 mg PO DAILY ON LICENSE OF [facility] Collagenase (Santyl) 1 applic TOP DAILY ON LICENSE OF [facility] Docusate Sodium (Colace) 200 mg PO HS ON LICENSE OF [facility] Home Med (Albiglutide [Tanzeum]) 30 mg SC TU ON LICENSE OF [facility] Home Med (Vorapaxar Sulfate [Zontivity]) 2.08 mg PO DAILY RACIEL Piperacillin Sod/Tazobactam (Sod 2.25 gm/ Sodium Chloride) 100 mls @ 100 mls/ hr IVPB Q8 RACIEL Last Admin: 03/12/17 01:16 Dose: 100 mls/hr Vancomycin HCl 500 mg/ Sodium (Chloride) 100 mls @ 100 mls/hr IVPB DAILY ON LICENSE OF [facility] Insulin Detemir (Levemir) 6 units SC HS ON LICENSE OF [facility] Insulin Human Regular (Humulin R) 0 units SC ACHS RACIEL PRN Reason: Protocol Last Admin: 03/12/17 06:50 Dose: 2 unit Megestrol Acetate (Megace) 400 mg PO DAILY ON LICENSE OF [facility] Nifedipine (Procardia Xl) 60 mg PO DAILY ON LICENSE OF [facility] Ondansetron HCl (Zofran Tab) 4 mg PO Q8H PRN PRN Reason: Nausea/Vomiting Pantoprazole Sodium (Protonix Ec Tab) 40 mg PO DAILY ON LICENSE OF [facility] Sevelamer HCl (Renagel) 2,400 mg PO TID ON LICENSE OF [facility] Sitagliptin Phosphate (Januvia) 25 mg PO DAILY ON LICENSE OF [facility] Vitamin B Complex/Vit C/Folic Acid (Nephro-Niko) 1 tab PO DAILY ON LICENSE OF [facility] Physical Exam - Constitutional Appears: No Acute Distress, Chronically Ill - Head Exam Head Exam: ATRAUMATIC, NORMAL INSPECTION, NORMOCEPHALIC - Eye Exam Eye Exam: EOMI, Normal appearance, PERRL Pupil Exam: NORMAL ACCOMODATION, PERRL - ENT Exam ENT Exam: Mucous Membranes Moist, Normal Exam - Neck Exam Neck exam: Positive for: Normal Inspection - Respiratory Exam Respiratory Exam: Decreased Breath Sounds, Rales, NORMAL BREATHING PATTERN Additional comments: DULLNESS OVER ENTIRE R LUNG FIELD - Cardiovascular Exam Cardiovascular Exam: REGULAR RHYTHM - GI/Abdominal Exam GI & Abdominal Exam: Normal Bowel Sounds, Soft. absent: Tenderness - Rectal Exam Rectal Exam: NORMAL INSPECTION - Back Exam Back exam: NORMAL INSPECTION - Neurological Exam Neurological exam: Alert, CN II-XII Intact, Reflexes Normal - Psychiatric Exam Psychiatric exam: Flat Affect - Skin Skin Exam: Dry, Intact, Normal Color, Warm Results - Vital Signs Recent Vital Signs: Last Vital Signs Temp 97.6 F 03/12/17 04:56 Pulse 92 H 03/12/17 04:56 Resp 17 03/12/17 04:56 BP 111/47 L 03/12/17 04:56 Pulse Ox 100 03/12/17 04:56 - Labs Result Diagrams: 03/12/17 05:00 03/12/17 05:00 Labs: Laboratory Results - last 24 hr 03/11/17 03/12/17 03/12/17 22:32 05:00 05:00 WBC 17.6 H RBC 3.94 L Hgb 8.1 L Hct 27.4 L MCV 69.7 L MCH 20.5 L MCHC 29.5 L RDW 23.7 H Plt Count 225 Sodium 137 Potassium 4.0 Chloride 101 Carbon Dioxide 23 Anion Gap 17 BUN 28 H Creatinine 4.3 H Est GFR ( Amer) 16 Est GFR (Non-Af Amer) 13 POC Glucose (mg/dL) 156 H Random Glucose 129 H Calcium 8.7 Total Bilirubin 0.7 AST 25 ALT 32 Alkaline Phosphatase 167 H Total Protein 7.5 Albumin 3.2 L Globulin 4.2 H Albumin/Globulin Ratio 0.8 L 03/12/17 05:23 WBC RBC Hgb Hct MCV MCH MCHC RDW Plt Count Sodium Potassium Chloride Carbon Dioxide Anion Gap BUN Creatinine Est GFR ( Amer) Est GFR (Non-Af Amer) POC Glucose (mg/dL) 161 H Random Glucose Calcium Total Bilirubin AST ALT Alkaline Phosphatase Total Protein Albumin Globulin Albumin/Globulin Ratio - Imaging and Cardiology CT scan - chest Additional comment: CT SCAN OF CHEST-R PLEURAL EFFUSION WITH ATELECTASES Assessment & Plan - Assessment and Plan (Free Text) Assessment: MASSIVE RECURRENT R PLEURAL EFFUSION ATELECTASES OF R LUNG ESRD ASHD R/O SUPERIMPOSED PNEUMONIA ALTERRED MENTAL STATUS--PROBABLY WORSENED BY HYPOXEMIA Plan: CONTINUE HEMODIALYSIS REPEAT CXR POST-DIALYSIS--IF EFFUSION PERSISTS,WILL NEED REPEAT U/S GUIDED THORACENTESES FOR SYMPTOM RELIEF AGREE WITH PRESENT RX. WILL FOLLOW WITH YOU.
--- NOTE | 2017-03-12 08:20 | CARD ---
APPROVED REPORT EKG Measurement Heart [id number] <Conclusion> Ventricular-paced rhythm Abnormal ECG
[2017-03-12] MEDS ORDERED: Sodium Chloride 3% for Inhalation 4 ML VIAL.NEB IH PRN (08:23)
[2017-03-12] MEDS ORDERED: VORAPAXAR SULFATE 2.08 MG PO SCH (09:00)
[2017-03-12] MEDS ORDERED: NIFEdipine 60 mg ER Tab PO SCH (09:00)
[2017-03-12] MEDS ORDERED: [UNRECOGNIZED DRUG - REMARK] PO SCH (09:00)
[2017-03-12 09:35] LABS: ABG ALLEN TEST YES; ARTERIAL BLOOD GAS HCO3 26.2 mmol/L (21-28); ARTERIAL BLOOD GAS HEMOGLOBIN 8.4 g/dL (11.7-17.4); ARTERIAL BLOOD GAS O2 CAPACITY 11.4 mL/dL (16-24); ARTERIAL BLOOD GAS O2 CONTENT 11.2 ML/dL (15-23); ARTERIAL BLOOD GAS O2 SAT 97.9 % (95-98); ARTERIAL BLOOD GAS PCO2 37 mm/Hg (35-45); ARTERIAL BLOOD GAS PH 7.45 (7.35-7.45); ARTERIAL BLOOD GAS PO2 75 mm/Hg (80-100); ARTERIAL BLOOD GAS TCO2 26.8 mmol/L (22-28)
[2017-03-12] MEDS: Multivitamin Vitamin B Complex (Nephro-Vite) Tab PO SCH (10:00)
[2017-03-12] MEDS: Santyl Collagenase OINTMENT TOP SCH (10:00)
[2017-03-12] MEDS: Megestrol Acetate 40 mg/ml Cup PO SCH (10:00)
[2017-03-12] MEDS: Pantoprazole 40 mg EC Tab PO SCH (10:00)
--- NOTE | 2017-03-12 10:04 | CP.PCM.CON ---
History of Present Illness - History of Present Illness History of Present Illness: Patient is 76 years of age transferred from senior living because of altered mental status. I was not able to get history from him today because he is awake but then he fell to sleep again when I am talking to him. The gentleman known to me with end-stage renal disease on maintenance dialysis Saturday he has his dialysis at the [facility] outpatient yesterday before he came Last admission patient has large pleural effusion on the right side and require thoracocentesis with 1800 mL was removed lives in a month ago. Also he has a foot surgery and he required to be treated with antibiotics for period of time. Past medical history as noted above end stage renal disease multiple admission congestive heart failure diabetes hypertension and peripheral vascular disease Review of Systems - Constitutional Constitutional: Anorexia. absent: Chills - EENT Nose/Mouth/Throat: absent: Epistaxis - Cardiovascular Cardiovascular: Dyspnea on Exertion. absent: Chest Pain, Edema, Leg Edema - Respiratory Respiratory: Cough - Gastrointestinal Gastrointestinal: Bloating - Genitourinary Genitourinary: As Per HPI - Reproductive: Male Reproductive:Male: As Per HPI - Integumentary Integumentary: As Per HPI - Neurological Neurological: As Per HPI Past Patient History - Infectious Disease Hx of Infectious Diseases: None - Past Medical History & Family History Past Medical History?: Yes - Past Social History Alcohol: None Drugs: Denies - CARDIAC Hx Atrial Fibrillation: Yes Hx Congestive Heart Failure: Yes Hx Hypercholesterolemia: Yes Hx Hypertension: Yes Hx Pacemaker: Yes - PULMONARY Hx Respiratory Disorders: Yes (pleural effusion) - HEENT Hx HEENT Problems: No - RENAL Hx Chronic Kidney Disease: Yes (ESRD) - ENDOCRINE/METABOLIC Hx Endocrine Disorders: Yes - HEMATOLOGICAL/ONCOLOGICAL Hx Blood Disorders: No - INTEGUMENTARY Hx Dermatological Problems: No - MUSCULOSKELETAL/RHEUMATOLOGICAL Hx Falls: Yes - GASTROINTESTINAL Hx Gastrointestinal Disorders: No - GENITOURINARY/GYNECOLOGICAL Hx Genitourinary Disorders: No - PSYCHIATRIC Hx Psychophysiologic Disorder: No Hx Substance Use: No - SURGICAL HISTORY Hx Coronary Artery Bypass Graft: Yes Hx Coronary Stent: Yes - ANESTHESIA Hx Anesthesia: Yes Hx Anesthesia Reactions: No Hx Malignant Hyperthermia: No Meds Allergies/Adverse Reactions: Allergies Allergy/AdvReac Type Severity Reaction Status Date / Time No Known Allergies Allergy Verified 02/06/17 13:47 - Medications Medications: Current Medications Acetaminophen (Tylenol 325mg Tab) 650 mg PO Q4H PRN PRN Reason: Pain, Mild (1-3) Atorvastatin Calcium (Lipitor) 10 mg PO HS [facility] Carvedilol (Coreg) 3.125 mg PO Q12 [facility] Collagenase (Santyl) 1 applic TOP DAILY [facility] Docusate Sodium (Colace) 200 mg PO HS [facility] Home Med (Albiglutide [Tanzeum]) 30 mg SC TU [facility] Home Med (Vorapaxar Sulfate [Zontivity]) 2.08 mg PO DAILY [facility] Piperacillin Sod/Tazobactam (Sod 2.25 gm/ Sodium Chloride) 100 mls @ 100 mls/ hr IVPB Q8 [facility] Last Admin: 03/12/17 01:16 Dose: 100 mls/hr Vancomycin HCl 500 mg/ Sodium (Chloride) 100 mls @ 100 mls/hr IVPB DAILY [facility] Insulin Detemir (Levemir) 6 units SC HS [facility] Insulin Human Regular (Humulin R) 0 units SC ACHS [facility] PRN Reason: Protocol Last Admin: 03/12/17 06:50 Dose: 2 unit Megestrol Acetate (Megace) 400 mg PO DAILY [facility] Nifedipine (Procardia Xl) 60 mg PO DAILY [facility] Ondansetron HCl (Zofran Tab) 4 mg PO Q8H PRN PRN Reason: Nausea/Vomiting Pantoprazole Sodium (Protonix Ec Tab) 40 mg PO DAILY [facility] Sevelamer HCl (Renagel) 2,400 mg PO TID [facility] Sitagliptin Phosphate (Januvia) 25 mg PO DAILY [facility] Vitamin B Complex/Vit C/Folic Acid (Nephro-Niko) 1 tab PO DAILY [facility] Physical Exam - Constitutional Appears: No Acute Distress - ENT Exam ENT Exam: Mucous Membranes Moist - Respiratory Exam Respiratory Exam: Rhonchi. absent: Chest Wall Tenderness Additional comments: decrease breath sound on the right side - GI/Abdominal Exam GI & Abdominal Exam: Normal Bowel Sounds Additional comments: patient may have ascites perhaps - Extremities Exam Extremities exam: Negative for: calf tenderness - Back Exam Back exam: absent: CVA tenderness (L), CVA tenderness (R) - Neurological Exam Neurological exam: Altered - Psychiatric Exam Psychiatric exam: Flat Affect Results - Vital Signs Recent Vital Signs: Last Vital Signs Temp 97.7 F 03/12/17 08:00 Pulse 83 03/12/17 08:00 Resp 18 03/12/17 08:00 BP 90/61 L 03/12/17 08:00 Pulse Ox 97 03/12/17 08:00 - Labs Result Diagrams: 03/12/17 05:00 03/12/17 05:00 Labs: Laboratory Results - last 24 hr 03/11/17 03/12/17 03/12/17 22:32 05:00 05:00 WBC 17.6 H RBC 3.94 L Hgb 8.1 L Hct 27.4 L MCV 69.7 L MCH 20.5 L MCHC 29.5 L RDW 23.7 H Plt Count 225 pCO2 pO2 HCO3 ABG pH ABG Total CO2 ABG O2 Saturation ABG O2 Content ABG Base Excess ABG Hemoglobin ABG Carboxyhemoglobin POC ABG HHb (Measured) ABG Methemoglobin ABG O2 Capacity Kai Test A-a O2 Difference Hgb O2 Saturation FiO2 Sodium 137 Potassium 4.0 Chloride 101 Carbon Dioxide 23 Anion Gap 17 BUN 28 H Creatinine 4.3 H Est GFR ( Amer) 16 Est GFR (Non-Af Amer) 13 POC Glucose (mg/dL) 156 H Random Glucose 129 H Calcium 8.7 Total Bilirubin 0.7 AST 25 ALT 32 Alkaline Phosphatase 167 H Total Protein 7.5 Albumin 3.2 L Globulin 4.2 H Albumin/Globulin Ratio 0.8 L 03/12/17 03/12/17 05:23 09:25 WBC RBC Hgb Hct MCV MCH MCHC RDW Plt Count pCO2 37 pO2 75 L HCO3 26.2 ABG pH 7.45 ABG Total CO2 26.8 ABG O2 Saturation 97.9 ABG O2 Content 11.2 L ABG Base Excess 1.7 ABG Hemoglobin 8.4 L ABG Carboxyhemoglobin 2.0 H POC ABG HHb (Measured) 2.0 ABG Methemoglobin 2.2 ABG O2 Capacity 11.4 L Kai Test Yes A-a O2 Difference 50.0 Hgb O2 Saturation 93.8 L FiO2 24.0 Sodium Potassium Chloride Carbon Dioxide Anion Gap BUN Creatinine Est GFR ( Amer) Est GFR (Non-Af Amer) POC Glucose (mg/dL) 161 H Random Glucose Calcium Total Bilirubin AST ALT Alkaline Phosphatase Total Protein Albumin Globulin Albumin/Globulin Ratio Assessment & Plan (1) Altered mental status Status: Acute (2) ESRD needing dialysis Assessment and Plan: Patient with end stage renal disease on maintenance hemodialysis admitted with high WBC appears to be sepsis with end underlying pneumonia perhaps. Patient required to be started on intravenous antibiotics and he may need extra hemodialysis today Patient has enlarged from a right pleural effusion he may need thoracocentesis as discussed with the pulmonary Patient has altered mental status need to be evaluated the blood gas this among other things Also patient has significant anemia hemoglobin around 8.1 with low blood pressure systolic around 95 in addition that the has high. BNP and will need to remove some more fluid on dialysis if possible therefore we will proceed with hemodialysis and blood transfusion Status: Acute (3) Pneumonia Status: Acute
--- NOTE | 2017-03-12 10:43 | RAD ---
HISTORY: Altered mental status. COMPARISON: 03/01/2017 chest radiographs. 03/11/2017 CT thorax FINDINGS: LUNGS: Consolidative changes right lower lobe. PLEURA: Right pleural effusion partially loculated, findings better appreciated CARDIOVASCULAR: On recent CT. Cardiomegaly. No evidence of acute, significant cardiovascular disease. Position/ configuration of pacemaker device: Satisfactory. OSSEOUS STRUCTURES: No significant abnormalities. VISUALIZED UPPER ABDOMEN: Normal. OTHER FINDINGS: None. IMPRESSION: Partially loculated right pleural effusion. Compressive atelectasis associated with large right pleural effusion affecting right lower lobe.
--- NOTE | 2017-03-12 11:01 | CP.PCM.PN ---
Subjective - Date & Time of Evaluation Date of Evaluation: 03/12/17 Time of Evaluation: 11:01 - Subjective Subjective: pt seen and examined at bedside. Currently on BiPap. No acute events overnight. Afebrile, WBC improving. Anemia with Hb of 8.1 noted, currently asymptomatic but will continue to monitor. BP running low (90-100/40-60s) but this is pt baseline. Bedside interview limited secondary to mental status of pt. Objective - Vital Signs/Intake and Output Vital Signs (last 24 hours): Temp Pulse Resp BP Pulse Ox 97.7 F 83 18 90/61 L 97 03/12/17 08:00 03/12/17 10:06 03/12/17 08:00 03/12/17 10:06 03/12/17 08:00 - Medications Medications: Current Medications Acetaminophen (Tylenol 325mg Tab) 650 mg PO Q4H PRN PRN Reason: Pain, Mild (1-3) Atorvastatin Calcium (Lipitor) 10 mg PO HS [facility] Carvedilol (Coreg) 3.125 mg PO Q12 [facility] Last Admin: 03/12/17 09:58 Dose: Not Given Collagenase (Santyl) 1 applic TOP DAILY [facility] Last Admin: 03/12/17 10:00 Dose: 1 applic Docusate Sodium (Colace) 200 mg PO HS [facility] Home Med (Albiglutide [Tanzeum]) 30 mg SC TU [facility] Home Med (Vorapaxar Sulfate [Zontivity]) 2.08 mg PO DAILY [facility] Piperacillin Sod/Tazobactam (Sod 2.25 gm/ Sodium Chloride) 100 mls @ 100 mls/ hr IVPB Q8 [facility] Last Admin: 03/12/17 08:00 Dose: 100 mls/hr Vancomycin HCl 500 mg/ Sodium (Chloride) 100 mls @ 100 mls/hr IVPB DAILY [facility] Last Admin: 03/12/17 09:15 Dose: 100 mls/hr Insulin Detemir (Levemir) 6 units SC HS [facility] Insulin Human Regular (Humulin R) 0 units SC ACHS [facility] PRN Reason: Protocol Last Admin: 03/12/17 06:50 Dose: 2 unit Megestrol Acetate (Megace) 400 mg PO DAILY [facility] Last Admin: 03/12/17 10:00 Dose: 400 mg Nifedipine (Procardia Xl) 60 mg PO DAILY [facility] Last Admin: 03/12/17 10:06 Dose: Not Given Ondansetron HCl (Zofran Tab) 4 mg PO Q8H PRN PRN Reason: Nausea/Vomiting Pantoprazole Sodium (Protonix Ec Tab) 40 mg PO DAILY [facility] Last Admin: 03/12/17 10:00 Dose: 40 mg Sevelamer HCl (Renagel) 2,400 mg PO TID [facility] Last Admin: 03/12/17 10:00 Dose: 2,400 mg Sitagliptin Phosphate (Januvia) 25 mg PO DAILY [facility] Last Admin: 03/12/17 10:00 Dose: 25 mg Vitamin B Complex/Vit C/Folic Acid (Nephro-Niko) 1 tab PO DAILY [facility] Last Admin: 03/12/17 10:00 Dose: 1 tab - Labs Labs: 03/12/17 05:00 03/12/17 05:00 PT 20.2 Seconds (9.8-13.1) H 03/11/17 04:59 INR 1.8 (0.9-1.2) H 03/11/17 04:59 APTT 30.7 Seconds (25.6-37.1) 03/11/17 04:59 - Constitutional Appears: Non-toxic, No Acute Distress - Respiratory Exam Respiratory Exam: Decreased Breath Sounds, Rales, NORMAL BREATHING PATTERN. absent: Accessory Muscle Use, Clear to Ausculation Bilateral, Rhonchi, Wheezes, Respiratory Distress - Cardiovascular Exam Cardiovascular Exam: REGULAR RHYTHM, RRR, +S1, +S2. absent: JVD Assessment and Plan (1) Pleural effusion Assessment & Plan: -afebrile, vitals stable, WBC improved from 21 to 17 -rule out super imposed pneumonia -on IV Abx (Vancomycin/Zosyn) -currently being followed by Dr. Marti, pt will need thoracentesis -on BiPap -f/u ABG in the am Status: Acute (2) ESRD needing dialysis Assessment & Plan: currently being followed by Dr. Frost potential for dialysis, pt may need transfusion due to low Hb. Status: Acute (3) Right foot ulcer Assessment & Plan: s/p surgery with right 2nd toe amputation -currently being followed by Podiatry -on IV Abx -wound cx pending Status: Chronic (4) Shortness of breath at rest Assessment & Plan: -cardiology consult appreciated -PBNP: [id number] -Troponin: neg Status: Chronic
--- NOTE | 2017-03-12 11:14 | CP.PCM.PN ---
Subjective - Date & Time of Evaluation Date of Evaluation: 03/12/17 Time of Evaluation: 07:40 - Subjective Subjective: 76 y/o male seen at bedside 3 weeks s/p right 2nd digit amputation (DOS: 02/16/17 ). Pt in altered mental status and was unable to speak to him clearly. Pt responds to some verbal commands clearly. Patient is seen resting comfortably and in no acute distress. Pt's dressing is clean dry and intact. Objective - Vital Signs/Intake and Output Vital Signs (last 24 hours): Temp Pulse Resp BP Pulse Ox 97.7 F 83 18 90/61 L 97 03/12/17 08:00 03/12/17 10:06 03/12/17 08:00 03/12/17 10:06 03/12/17 08:00 - Medications Medications: Current Medications Acetaminophen (Tylenol 325mg Tab) 650 mg PO Q4H PRN PRN Reason: Pain, Mild (1-3) Atorvastatin Calcium (Lipitor) 10 mg PO HS [facility] Carvedilol (Coreg) 3.125 mg PO Q12 [facility] Last Admin: 03/12/17 09:58 Dose: Not Given Collagenase (Santyl) 1 applic TOP DAILY [facility] Last Admin: 03/12/17 10:00 Dose: 1 applic Docusate Sodium (Colace) 200 mg PO HS [facility] Home Med (Albiglutide [Tanzeum]) 30 mg SC TU [facility] Home Med (Vorapaxar Sulfate [Zontivity]) 2.08 mg PO DAILY [facility] Piperacillin Sod/Tazobactam (Sod 2.25 gm/ Sodium Chloride) 100 mls @ 100 mls/ hr IVPB Q8 [facility] Last Admin: 03/12/17 08:00 Dose: 100 mls/hr Vancomycin HCl 500 mg/ Sodium (Chloride) 100 mls @ 100 mls/hr IVPB DAILY [facility] Last Admin: 03/12/17 09:15 Dose: 100 mls/hr Insulin Detemir (Levemir) 6 units SC HS [facility] Insulin Human Regular (Humulin R) 0 units SC ACHS [facility] PRN Reason: Protocol Last Admin: 03/12/17 06:50 Dose: 2 unit Megestrol Acetate (Megace) 400 mg PO DAILY [facility] Last Admin: 03/12/17 10:00 Dose: 400 mg Nifedipine (Procardia Xl) 60 mg PO DAILY [facility] Last Admin: 03/12/17 10:06 Dose: Not Given Ondansetron HCl (Zofran Tab) 4 mg PO Q8H PRN PRN Reason: Nausea/Vomiting Pantoprazole Sodium (Protonix Ec Tab) 40 mg PO DAILY [facility] Last Admin: 03/12/17 10:00 Dose: 40 mg Sevelamer HCl (Renagel) 2,400 mg PO TID [facility] Last Admin: 03/12/17 10:00 Dose: 2,400 mg Sitagliptin Phosphate (Januvia) 25 mg PO DAILY [facility] Last Admin: 03/12/17 10:00 Dose: 25 mg Vitamin B Complex/Vit C/Folic Acid (Nephro-Niko) 1 tab PO DAILY [facility] Last Admin: 03/12/17 10:00 Dose: 1 tab - Labs Labs: 03/12/17 05:00 03/12/17 05:00 PT 20.2 Seconds (9.8-13.1) H 03/11/17 04:59 INR 1.8 (0.9-1.2) H 03/11/17 04:59 APTT 30.7 Seconds (25.6-37.1) 03/11/17 04:59 - Constitutional Appears: Well, Non-toxic, No Acute Distress - Extremities Exam Additional comments: Right lower extremity focused exam: VASC: DP pulse non palpable, PT pulses are palpable 1/4, 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 All surgical sutures are intact, no active drainage, no malodor, no erythema noted, moderate tere-wound maceration noted to skin surrounding incision site. Fibro-granular wound bases noted. De-roofed bullae noted on the plantar medial arch with a [id number] base. bulla base is absent active drainage, however underlying fluctuance noted, about 1-1.5 cc of purulent drainage dismissed NEURO: grossly sensation intact ORTHO: No pain on palpation noted to surgical site. pain present when dismissing drainage from the plantar medial arch on previously de-roofed bullae - Neurological Exam Neurological Exam: Alert, Awake, Oriented x3 - Psychiatric Exam Psychiatric exam: Normal Affect, Normal Mood Assessment and Plan - Assessment and Plan (Free Text) Assessment: 76 year old male with complicated Chance grade 4 ulceration, 3 weeks s/p right 2nd digit amputation; secondary to diabetes and PAD Plan: Pt evaluated and chart reviewed PT discussed in details with attending Dr. Lebron Chart, labs, and vitals reviewed. Afebrile, WBC @ 17.6 today, down from yesterday 21.3 Pt admitted for pneumonia, which is likely source of leukocytosis. Cultures taken - pending results Dressing applied using santyl, DSD, Kerlix. Consult placed to vascular Dr. Ferris. Continue IV abx per primary provider. Podiatry to continue to follow pt while inhouse.
--- NOTE | 2017-03-12 11:38 | CP.PCM.CON ---
History of Present Illness - History of Present Illness History of Present Illness: THE PATIENT IS A 76 YEAR OLD MALE WITH A LONG PAST MEDICAL HISTORY INCLUSING CAD WITH AN OLD IWMI, CABGS, MITRAL VALVE REGURGITATION WITH A MITRAL VALVE REPAIR, CARDIOMYOPATHY WITH A LVEF OF ~ 20%, HYPERTENSION, DIABETES MELLITUS, PAD, CRF ON HD AND PNEUMONIA ON HIS LAS ADMISSION. HE WAS ADMITTED ABOUT A MONTH AGO FOR GANGRENE OF THE RIGHT FOOT TOES AND HAD SEPTIC SHOCK AND EVENTUALLY HAD PERIPHERAL REVASCULARIZATION OF THE RLE FOLLOWED BUT AMPUTATION OF THE RIGHT SECOND TOE. HE WENT TO [facility] FOR SUBACUTE REHAB AND WAS ADMITTED SEVERAL DAYS LATER FOR PNEUMONIA AND TREATED. HE WENT BACK TO REHAB AND WAS SENT BACK TO [facility] YESTERDAY FOR AN AMS AND WAS FOUND TO HAVE PNEUMONIA WITH HYPOXIA AND ADMITTED AND TREATED WITH O2 AND IV ANTIBIOTICS. CARDIOLOGY WAS ASKED TO SEE AND FOLLOW HIM. HE FEELS BETTER TODAY. HE DENIES CHEST PAIN. Past Patient History - Infectious Disease Hx of Infectious Diseases: None - Past Medical History & Family History Past Medical History?: Yes - Past Social History Alcohol: None Drugs: Denies - CARDIAC Hx Atrial Fibrillation: Yes Hx Congestive Heart Failure: Yes Hx Hypercholesterolemia: Yes Hx Hypertension: Yes Hx Pacemaker: Yes - PULMONARY Hx Respiratory Disorders: Yes (pleural effusion) - HEENT Hx HEENT Problems: No - RENAL Hx Chronic Kidney Disease: Yes (ESRD) - ENDOCRINE/METABOLIC Hx Endocrine Disorders: Yes - HEMATOLOGICAL/ONCOLOGICAL Hx Blood Disorders: No - INTEGUMENTARY Hx Dermatological Problems: No - MUSCULOSKELETAL/RHEUMATOLOGICAL Hx Falls: Yes - GASTROINTESTINAL Hx Gastrointestinal Disorders: No - GENITOURINARY/GYNECOLOGICAL Hx Genitourinary Disorders: No - PSYCHIATRIC Hx Psychophysiologic Disorder: No Hx Substance Use: No - SURGICAL HISTORY Hx Coronary Artery Bypass Graft: Yes Hx Coronary Stent: Yes - ANESTHESIA Hx Anesthesia: Yes Hx Anesthesia Reactions: No Hx Malignant Hyperthermia: No Meds Allergies/Adverse Reactions: Allergies Allergy/AdvReac Type Severity Reaction Status Date / Time No Known Allergies Allergy Verified 02/06/17 13:47 - Medications Medications: Current Medications Acetaminophen (Tylenol 325mg Tab) 650 mg PO Q4H PRN PRN Reason: Pain, Mild (1-3) Atorvastatin Calcium (Lipitor) 10 mg PO HS [facility] Carvedilol (Coreg) 3.125 mg PO Q12 [facility] Last Admin: 03/12/17 09:58 Dose: Not Given Collagenase (Santyl) 1 applic TOP DAILY [facility] Last Admin: 03/12/17 10:00 Dose: 1 applic Docusate Sodium (Colace) 200 mg PO HS [facility] Home Med (Albiglutide [Tanzeum]) 30 mg SC TU [facility] Home Med (Vorapaxar Sulfate [Zontivity]) 2.08 mg PO DAILY [facility] Piperacillin Sod/Tazobactam (Sod 2.25 gm/ Sodium Chloride) 100 mls @ 100 mls/ hr IVPB Q8 [facility] Last Admin: 03/12/17 08:00 Dose: 100 mls/hr Vancomycin HCl 500 mg/ Sodium (Chloride) 100 mls @ 100 mls/hr IVPB DAILY [facility] Last Admin: 03/12/17 09:15 Dose: 100 mls/hr Insulin Detemir (Levemir) 6 units SC HS [facility] Insulin Human Regular (Humulin R) 0 units SC ACHS [facility] PRN Reason: Protocol Last Admin: 03/12/17 06:50 Dose: 2 unit Megestrol Acetate (Megace) 400 mg PO DAILY [facility] Last Admin: 03/12/17 10:00 Dose: 400 mg Nifedipine (Procardia Xl) 60 mg PO DAILY [facility] Last Admin: 03/12/17 10:06 Dose: Not Given Ondansetron HCl (Zofran Tab) 4 mg PO Q8H PRN PRN Reason: Nausea/Vomiting Pantoprazole Sodium (Protonix Ec Tab) 40 mg PO DAILY [facility] Last Admin: 03/12/17 10:00 Dose: 40 mg Sevelamer HCl (Renagel) 2,400 mg PO TID [facility] Last Admin: 03/12/17 10:00 Dose: 2,400 mg Sitagliptin Phosphate (Januvia) 25 mg PO DAILY [facility] Last Admin: 03/12/17 10:00 Dose: 25 mg Vitamin B Complex/Vit C/Folic Acid (Nephro-Niko) 1 tab PO DAILY [facility] Last Admin: 03/12/17 10:00 Dose: 1 tab Physical Exam - Respiratory Exam Respiratory Exam: Decreased Breath Sounds, Rales - Cardiovascular Exam Cardiovascular Exam: REGULAR RHYTHM, +S1, +S2 - Extremities Exam Additional comments: NO LEG EDEMA RT SECOND TOE AMPUTATION SITE WITH WOUND DEHISCENCE BUT NO EXUDATE RT PLANTAR BULLAE - Additional Findings Additional findings: EKG VVI PACING CXR RLL PNEUMONIA AND LARGE RT PLEURAL EFFUSION WBC 21K Results - Vital Signs Recent Vital Signs: Last Vital Signs Temp 97.7 F 03/12/17 08:00 Pulse 83 03/12/17 10:06 Resp 18 03/12/17 08:00 BP 90/61 L 03/12/17 10:06 Pulse Ox 97 03/12/17 08:00 - Labs Result Diagrams: 03/14/17 05:00 03/13/17 09:30 Labs: Laboratory Results - last 24 hr 03/11/17 03/12/17 03/12/17 22:32 05:00 05:00 WBC 17.6 H RBC 3.94 L Hgb 8.1 L Hct 27.4 L MCV 69.7 L MCH 20.5 L MCHC 29.5 L RDW 23.7 H Plt Count 225 pCO2 pO2 HCO3 ABG pH ABG Total CO2 ABG O2 Saturation ABG O2 Content ABG Base Excess ABG Hemoglobin ABG Carboxyhemoglobin POC ABG HHb (Measured) ABG Methemoglobin ABG O2 Capacity Kai Test A-a O2 Difference Hgb O2 Saturation FiO2 Sodium 137 Potassium 4.0 Chloride 101 Carbon Dioxide 23 Anion Gap 17 BUN 28 H Creatinine 4.3 H Est GFR ( Amer) 16 Est GFR (Non-Af Amer) 13 POC Glucose (mg/dL) 156 H Random Glucose 129 H Calcium 8.7 Total Bilirubin 0.7 AST 25 ALT 32 Alkaline Phosphatase 167 H Total Protein 7.5 Albumin 3.2 L Globulin 4.2 H Albumin/Globulin Ratio 0.8 L 03/12/17 03/12/17 03/12/17 05:23 09:25 11:26 WBC RBC Hgb Hct MCV MCH MCHC RDW Plt Count pCO2 37 pO2 75 L HCO3 26.2 ABG pH 7.45 ABG Total CO2 26.8 ABG O2 Saturation 97.9 ABG O2 Content 11.2 L ABG Base Excess 1.7 ABG Hemoglobin 8.4 L ABG Carboxyhemoglobin 2.0 H POC ABG HHb (Measured) 2.0 ABG Methemoglobin 2.2 ABG O2 Capacity 11.4 L Kai Test Yes A-a O2 Difference 50.0 Hgb O2 Saturation 93.8 L FiO2 24.0 Sodium Potassium Chloride Carbon Dioxide Anion Gap BUN Creatinine Est GFR ( Amer) Est GFR (Non-Af Amer) POC Glucose (mg/dL) 161 H 87 Random Glucose Calcium Total Bilirubin AST ALT Alkaline Phosphatase Total Protein Albumin Globulin Albumin/Globulin Ratio Assessment & Plan - Assessment and Plan (Free Text) Assessment: RLL PNEUMONIA RIGHT PLEURAL EFFUSION CAD PAD CRF ON HD DM Plan: CONTINUE IV ANTIBIOTICS, ATORVASTATIN, INSULIN, JANUVIA PROCARDIA AND COREG DISCONTINUED FOR NOW SOME BLOOD PRESSURES WERE LOW ASPIRIN AND CLOPIDOGRAL ARE BEING HELD FOR NOW PATIENT WILL PROBABLY HAVE A REPEAT RT THORACENTESIS PATIENT DISCUSSED WITH DR PERRY, NURSING STAFF AND HIS SON
[2017-03-12] MEDS ORDERED: Oxycodone/Acetaminophen 5/325 mg Tab PO ONE (14:15)
[2017-03-12] MEDS ORDERED: INSULIN GLARGINE SUBCUT SCH (22:00)
[2017-03-12] MEDS: Insulin Detemir 100 Units/ml Inj SC SCH (22:20)
[2017-03-12] MEDS ORDERED: ALBIGLUTIDE 30 MG SC SCH (23:17)
[2017-03-13 05:19] LABS: ABG ALLEN TEST YES; ARTERIAL BLOOD GAS HCO3 27.3 mmol/L (21-28); ARTERIAL BLOOD GAS HEMOGLOBIN 9.1 g/dL (11.7-17.4); ARTERIAL BLOOD GAS O2 CAPACITY 12.6 mL/dL (16-24); ARTERIAL BLOOD GAS O2 CONTENT 12.4 ML/dL (15-23); ARTERIAL BLOOD GAS O2 SAT 98.8 % (95-98); ARTERIAL BLOOD GAS PCO2 37 mm/Hg (35-45); ARTERIAL BLOOD GAS PH 7.47 (7.35-7.45); ARTERIAL BLOOD GAS PO2 134 mm/Hg (80-100)
--- NOTE | 2017-03-13 08:01 | CP.PCM.CON ---
History of Present Illness - History of Present Illness History of Present Illness: I was asked to see patient by Dr. Lebron Patient is a 76 year old male with PMH HTN, PAD, hypercholewsterolemia who presents with pneumonia. The patient had previous gangrene of the right foot. He underwent atherectomy of the R SFA. The patient has diffuse distal disease. Today patient requires BiPAP. He is somewhat somnolent. Review of Systems - Review of Systems Systems not reviewed;Unavailable: Altered Mental Status Past Patient History - Infectious Disease Hx of Infectious Diseases: None - Past Medical History & Family History Past Medical History?: Yes - Past Social History Alcohol: None Drugs: Denies - CARDIAC Hx Atrial Fibrillation: Yes Hx Congestive Heart Failure: Yes Hx Hypercholesterolemia: Yes Hx Hypertension: Yes Hx Pacemaker: Yes - PULMONARY Hx Respiratory Disorders: Yes (pleural effusion) - HEENT Hx HEENT Problems: No - RENAL Hx Chronic Kidney Disease: Yes (ESRD) - ENDOCRINE/METABOLIC Hx Endocrine Disorders: Yes - HEMATOLOGICAL/ONCOLOGICAL Hx Blood Disorders: No - INTEGUMENTARY Hx Dermatological Problems: No - MUSCULOSKELETAL/RHEUMATOLOGICAL Hx Falls: Yes - GASTROINTESTINAL Hx Gastrointestinal Disorders: No - GENITOURINARY/GYNECOLOGICAL Hx Genitourinary Disorders: No - PSYCHIATRIC Hx Psychophysiologic Disorder: No Hx Substance Use: No - SURGICAL HISTORY Hx Coronary Artery Bypass Graft: Yes Hx Coronary Stent: Yes - ANESTHESIA Hx Anesthesia: Yes Hx Anesthesia Reactions: No Hx Malignant Hyperthermia: No Meds Allergies/Adverse Reactions: Allergies Allergy/AdvReac Type Severity Reaction Status Date / Time No Known Allergies Allergy Verified 02/06/17 13:47 - Medications Medications: Current Medications Acetaminophen (Tylenol 325mg Tab) 650 mg PO Q4H PRN PRN Reason: Pain, Mild (1-3) Last Admin: 03/12/17 21:32 Dose: 650 mg Atorvastatin Calcium (Lipitor) 10 mg PO HS [facility] Last Admin: 03/12/17 21:26 Dose: 10 mg Collagenase (Santyl) 1 applic TOP DAILY [facility] Last Admin: 03/12/17 10:00 Dose: 1 applic Docusate Sodium (Colace) 200 mg PO HS [facility] Last Admin: 03/12/17 21:25 Dose: Not Given Home Med (Albiglutide [Tanzeum]) 30 mg SC TU [facility] Home Med (Vorapaxar Sulfate [Zontivity]) 2.08 mg PO DAILY [facility] Piperacillin Sod/Tazobactam (Sod 2.25 gm/ Sodium Chloride) 100 mls @ 100 mls/ hr IVPB Q8 [facility] Last Admin: 03/13/17 01:46 Dose: 100 mls/hr Vancomycin HCl 500 mg/ Sodium (Chloride) 100 mls @ 100 mls/hr IVPB DAILY [facility] Last Admin: 03/12/17 09:15 Dose: 100 mls/hr Insulin Detemir (Levemir) 6 units SC HS [facility] Last Admin: 03/12/17 22:20 Dose: 6 units Insulin Human Regular (Humulin R) 0 units SC [facility] PRN Reason: Protocol Last Admin: 03/12/17 22:35 Dose: Not Given Megestrol Acetate (Megace) 400 mg PO DAILY [facility] Last Admin: 03/12/17 10:00 Dose: 400 mg Ondansetron HCl (Zofran Tab) 4 mg PO Q8H PRN PRN Reason: Nausea/Vomiting Pantoprazole Sodium (Protonix Ec Tab) 40 mg PO DAILY [facility] Last Admin: 03/12/17 10:00 Dose: 40 mg Sevelamer HCl (Renagel) 2,400 mg PO TID [facility] Last Admin: 03/12/17 16:38 Dose: 2,400 mg Sitagliptin Phosphate (Januvia) 25 mg PO DAILY [facility] Last Admin: 03/12/17 10:00 Dose: 25 mg Vitamin B Complex/Vit C/Folic Acid (Nephro-Niko) 1 tab PO DAILY [facility] Last Admin: 03/12/17 10:00 Dose: 1 tab Physical Exam - Constitutional Appears: Chronically Ill - Head Exam Head Exam: NORMAL INSPECTION - Eye Exam Eye Exam: Normal appearance - ENT Exam ENT Exam: Mucous Membranes Moist - Neck Exam Neck exam: Positive for: Full Rom - Respiratory Exam Respiratory Exam: Decreased Breath Sounds - Cardiovascular Exam Cardiovascular Exam: REGULAR RHYTHM - GI/Abdominal Exam GI & Abdominal Exam: Normal Bowel Sounds - Rectal Exam Rectal Exam: Deferred - Extremities Exam Additional comments: gangrene of the right foot. The patient' s foot is warm, but has extensive eschar of the plantar surface of the foot. - Skin Skin Exam: Normal Color Results - Vital Signs Recent Vital Signs: Last Vital Signs Temp 98.8 F 03/13/17 04:50 Pulse 86 03/13/17 04:50 Resp 21 03/13/17 04:50 BP 98/48 L 03/13/17 04:50 Pulse Ox 100 03/13/17 04:50 - Labs Result Diagrams: 03/12/17 05:00 03/12/17 05:00 Labs: Laboratory Results - last 24 hr 03/12/17 03/12/17 03/12/17 09:25 11:26 15:55 pCO2 37 pO2 75 L HCO3 26.2 ABG pH 7.45 ABG Total CO2 26.8 ABG O2 Saturation 97.9 ABG O2 Content 11.2 L ABG Base Excess 1.7 ABG Hemoglobin 8.4 L ABG Carboxyhemoglobin 2.0 H POC ABG HHb (Measured) 2.0 ABG Methemoglobin 2.2 ABG O2 Capacity 11.4 L Kai Test Yes A-a O2 Difference 50.0 Hgb O2 Saturation 93.8 L Vent Mode FiO2 24.0 POC Glucose (mg/dL) 87 138 H 03/13/17 03/13/17 05:03 05:06 pCO2 37 pO2 134 H HCO3 27.3 ABG pH 7.47 H ABG Total CO2 28.0 ABG O2 Saturation 98.8 H ABG O2 Content 12.4 L ABG Base Excess 3.1 H ABG Hemoglobin 9.1 L ABG Carboxyhemoglobin 1.6 H POC ABG HHb (Measured) 1.2 ABG Methemoglobin 2.3 ABG O2 Capacity 12.6 L Kai Test Yes A-a O2 Difference 105.0 Hgb O2 Saturation 94.9 L Vent Mode Nasal cannula FiO2 40.0 POC Glucose (mg/dL) 207 H - EKG Data EKG Interpreted by: Myself Assessment & Plan (1) Right foot ulcer Assessment and Plan: conitnue antibiotics. will discuss with podiatry if patient is salvageable. will schedule arterial duplex. may need BKA. will ask surgery to see. Status: Chronic (2) CAD (coronary artery disease) Assessment and Plan: stable. no CAD. Status: Acute (3) Ischemic cardiomyopathy Assessment and Plan: no current CHF Status: Acute (4) PAD (peripheral artery disease) Assessment and Plan: antiplatelet therapy Status: Acute - Date & Time Date: 03/12/17 Time: 10:45
--- NOTE | 2017-03-13 08:49 | CP.PCM.PN ---
Subjective - Date & Time of Evaluation Date of Evaluation: 03/13/17 Time of Evaluation: 08:47 - Subjective Subjective: 76 y/o male seen at bedside 3 weeks s/p right 2nd digit amputation (DOS: 02/16/17 ). Pt is responding to verbal commands today. Pt is alert, awake and is in NAD. Pt states that he was seen by Dr. Ferris today and he plans on doing more tests. Pt denies of any other pedal complains at this time. Pt denies of any F/N /V/C/SOB. Pt's dressing is clean dry and intact. Objective - Vital Signs/Intake and Output Vital Signs (last 24 hours): Temp Pulse Resp BP Pulse Ox 97.8 F 80 20 88/47 L 92 L 03/13/17 08:36 03/13/17 08:36 03/13/17 08:36 03/13/17 08:36 03/13/17 08:36 - Medications Medications: Current Medications Acetaminophen (Tylenol 325mg Tab) 650 mg PO Q4H PRN PRN Reason: Pain, Mild (1-3) Last Admin: 03/12/17 21:32 Dose: 650 mg Atorvastatin Calcium (Lipitor) 10 mg PO [facility] Last Admin: 03/12/17 21:26 Dose: 10 mg Collagenase (Santyl) 1 applic TOP DAILY [facility] Last Admin: 03/12/17 10:00 Dose: 1 applic Docusate Sodium (Colace) 200 mg PO [facility] Last Admin: 03/12/17 21:25 Dose: Not Given Home Med (Albiglutide [Tanzeum]) 30 mg SC [facility] Home Med (Vorapaxar Sulfate [Zontivity]) 2.08 mg PO DAILY [facility] Piperacillin Sod/Tazobactam (Sod 2.25 gm/ Sodium Chloride) 100 mls @ 100 mls/ hr IVPB Q8 [facility] Last Admin: 03/13/17 01:46 Dose: 100 mls/hr Vancomycin HCl 500 mg/ Sodium (Chloride) 100 mls @ 100 mls/hr IVPB DAILY [facility] Last Admin: 03/12/17 09:15 Dose: 100 mls/hr Insulin Detemir (Levemir) 6 units SC [facility] Last Admin: 03/12/17 22:20 Dose: 6 units Insulin Human Regular (Humulin R) 0 units SC [facility] PRN Reason: Protocol Last Admin: 03/12/17 22:35 Dose: Not Given Megestrol Acetate (Megace) 400 mg PO DAILY [facility] Last Admin: 03/12/17 10:00 Dose: 400 mg Ondansetron HCl (Zofran Tab) 4 mg PO Q8H PRN PRN Reason: Nausea/Vomiting Pantoprazole Sodium (Protonix Ec Tab) 40 mg PO DAILY [facility] Last Admin: 03/12/17 10:00 Dose: 40 mg Sevelamer HCl (Renagel) 2,400 mg PO TID [facility] Last Admin: 03/12/17 16:38 Dose: 2,400 mg Sitagliptin Phosphate (Januvia) 25 mg PO DAILY [facility] Last Admin: 03/12/17 10:00 Dose: 25 mg Vitamin B Complex/Vit C/Folic Acid (Nephro-Niko) 1 tab PO DAILY [facility] Last Admin: 03/12/17 10:00 Dose: 1 tab - Labs Labs: 03/12/17 05:00 03/12/17 05:00 PT 20.2 Seconds (9.8-13.1) H 03/11/17 04:59 INR 1.8 (0.9-1.2) H 03/11/17 04:59 APTT 30.7 Seconds (25.6-37.1) 03/11/17 04:59 - Constitutional Appears: Well, Non-toxic, No Acute Distress - Extremities Exam Additional comments: Right lower extremity focused exam: VASC: DP pulse faintly palpable, PT pulses are palpable 1/4, [employer]: < 3 sec x 4, Temperature gradient: cool to cool, no pitting or non pitting edema noted DERM: Surgical site shows dehiscence and proximal margin shows (+) probe-to- bone. no active drainage, no malodor, no erythema noted, moderate tere-wound maceration noted to skin surrounding incision site. Fibro-granular wound bases noted. De-roofed bullae noted on the plantar medial arch with a necro-fibro- granular base. bullae base is absent active drainage with minimal purulence, however underlying fluctuance noted, about 0.2 cc of purulent drainage dismissed NEURO: grossly sensation intact ORTHO: No pain on palpation noted to surgical site. pain present when dismissing drainage from the plantar medial arch on previously de-roofed bullae - Neurological Exam Neurological Exam: Alert, Oriented x3 - Psychiatric Exam Psychiatric exam: Normal Affect, Normal Mood Assessment and Plan - Assessment and Plan (Free Text) Assessment: 76 year old male with complicated Chance grade 4 ulceration, 3 weeks s/p right 2nd digit amputation; secondary to diabetes and PAD Plan: Pt evaluated and chart reviewed Pt discussed in details with attending Dr. Lebron Labs, and vitals reviewed. Afebrile, WBC @ 17.6 yesterday, down from yesterday 21.3 Pt admitted for pneumonia, which is likely source of leukocytosis. Cultures taken - pending results Dressing applied using santyl, DSD, Kerlix. Consult placed to vascular Dr. Ferris - Dr. Ferris plans for CT angio, [place] Avila to consult Dr. Gibbons in the event that BKA is required Continue IV abx per primary provider. Podiatry to continue to follow pt while inhouse.
--- NOTE | 2017-03-13 09:20 | CP.PCM.PN ---
Subjective - Date & Time of Evaluation Date of Evaluation: 03/13/17 Time of Evaluation: 09:20 - Subjective Subjective: AWAKE AND ALERT OOB TO CHAIR TODAY SOB IMPROVED Objective - Vital Signs/Intake and Output Vital Signs (last 24 hours): Temp Pulse Resp BP Pulse Ox 97.8 F 80 20 88/47 L 92 L 03/13/17 08:36 03/13/17 08:36 03/13/17 08:36 03/13/17 08:36 03/13/17 08:36 - Medications Medications: Current Medications Acetaminophen (Tylenol 325mg Tab) 650 mg PO Q4H PRN PRN Reason: Pain, Mild (1-3) Last Admin: 03/12/17 21:32 Dose: 650 mg Atorvastatin Calcium (Lipitor) 10 mg PO [facility] Last Admin: 03/12/17 21:26 Dose: 10 mg Collagenase (Santyl) 1 applic TOP DAILY [facility] Last Admin: 03/12/17 10:00 Dose: 1 applic Docusate Sodium (Colace) 200 mg PO [facility] Last Admin: 03/12/17 21:25 Dose: Not Given Home Med (Albiglutide [Tanzeum]) 30 mg SC [facility] Home Med (Vorapaxar Sulfate [Zontivity]) 2.08 mg PO DAILY [facility] Piperacillin Sod/Tazobactam (Sod 2.25 gm/ Sodium Chloride) 100 mls @ 100 mls/ hr IVPB Q8 [facility] Last Admin: 03/13/17 01:46 Dose: 100 mls/hr Vancomycin HCl 500 mg/ Sodium (Chloride) 100 mls @ 100 mls/hr IVPB DAILY [facility] Last Admin: 03/12/17 09:15 Dose: 100 mls/hr Insulin Detemir (Levemir) 6 units SC [facility] Last Admin: 03/12/17 22:20 Dose: 6 units Insulin Human Regular (Humulin R) 0 units SC [facility] PRN Reason: Protocol Last Admin: 03/12/17 22:35 Dose: Not Given Megestrol Acetate (Megace) 400 mg PO DAILY [facility] Last Admin: 03/12/17 10:00 Dose: 400 mg Ondansetron HCl (Zofran Tab) 4 mg PO Q8H PRN PRN Reason: Nausea/Vomiting Pantoprazole Sodium (Protonix Ec Tab) 40 mg PO DAILY [facility] Last Admin: 03/12/17 10:00 Dose: 40 mg Sevelamer HCl (Renagel) 2,400 mg PO TID [facility] Last Admin: 03/12/17 16:38 Dose: 2,400 mg Sitagliptin Phosphate (Januvia) 25 mg PO DAILY [facility] Last Admin: 03/12/17 10:00 Dose: 25 mg Vitamin B Complex/Vit C/Folic Acid (Nephro-Niko) 1 tab PO DAILY [facility] Last Admin: 03/12/17 10:00 Dose: 1 tab - Labs Labs: 03/12/17 05:00 03/12/17 05:00 PT 20.2 Seconds (9.8-13.1) H 03/11/17 04:59 INR 1.8 (0.9-1.2) H 03/11/17 04:59 APTT 30.7 Seconds (25.6-37.1) 03/11/17 04:59 - Constitutional Appears: No Acute Distress - Head Exam Head Exam: ATRAUMATIC, NORMAL INSPECTION, NORMOCEPHALIC - Eye Exam Eye Exam: EOMI, Normal appearance, PERRL Pupil Exam: NORMAL ACCOMODATION, PERRL - ENT Exam ENT Exam: Mucous Membranes Moist, Normal Exam - Neck Exam Neck Exam: Full ROM, Normal Inspection. absent: Lymphadenopathy - Respiratory Exam Respiratory Exam: Decreased Breath Sounds, NORMAL BREATHING PATTERN - Cardiovascular Exam Cardiovascular Exam: REGULAR RHYTHM, +S1, +S2. absent: Murmur - GI/Abdominal Exam GI & Abdominal Exam: Soft, Normal Bowel Sounds. absent: Tenderness - Rectal Exam Rectal Exam: NORMAL INSPECTION - Extremities Exam Extremities Exam: Full ROM, Normal Capillary Refill. absent: Joint Swelling, Pedal Edema - Back Exam Back Exam: NORMAL INSPECTION - Neurological Exam Neurological Exam: Alert, Awake, CN II-XII Intact, Normal Gait, Oriented x3 - Psychiatric Exam Psychiatric exam: Normal Affect, Normal Mood - Skin Skin Exam: Dry, Intact, Normal Color, Warm Assessment and Plan - Assessment and Plan (Free Text) Assessment: R PLEURAL EFFUSION ESRD Plan: IR REFERRAL FOR THORACENTESIS D/C BIPAP CONTINUE NC O2
--- NOTE | 2017-03-13 10:07 | CP.PCM.HP ---
History of Present Illness - History of Present Illness History of Present Illness: This is a 76 y/o male admitted for hypoxemia and desaturation. He was noted to have recurrence of right pleural effusion and infiltrate Right lower lung. He was just discharged recently to [facility] after treatment of pneumonia and thoracentesis. He was noted to have progressive SOB and cough and desaturation while at [facility] hence was sent back to ER for evaluation. Has a hx of CKD on HD, DM 2 HTN hyperlipidemia PAD Present on Admission - Present on Admission Any Indicators Present on Admission: No History of DVT/PE: No History of Uncontrolled Diabetes: Yes Urinary Catheter: No Decubitus Ulcer Present: No Review of Systems - EENT Eyes: Change in Vision Ears: Dizziness - Respiratory Respiratory: Dyspnea Past Patient History - Infectious Disease Hx of Infectious Diseases: None - Past Medical History & Family History Past Medical History?: Yes - Past Social History Alcohol: None Drugs: Denies - CARDIAC Hx Atrial Fibrillation: Yes Hx Congestive Heart Failure: Yes Hx Hypercholesterolemia: Yes Hx Hypertension: Yes Hx Pacemaker: Yes - PULMONARY Hx Respiratory Disorders: Yes (pleural effusion) - HEENT Hx HEENT Problems: No - RENAL Hx Chronic Kidney Disease: Yes (ESRD) - ENDOCRINE/METABOLIC Hx Endocrine Disorders: Yes - HEMATOLOGICAL/ONCOLOGICAL Hx Blood Disorders: No - INTEGUMENTARY Hx Dermatological Problems: No - MUSCULOSKELETAL/RHEUMATOLOGICAL Hx Falls: Yes - GASTROINTESTINAL Hx Gastrointestinal Disorders: No - GENITOURINARY/GYNECOLOGICAL Hx Genitourinary Disorders: No - PSYCHIATRIC Hx Psychophysiologic Disorder: No Hx Substance Use: No - SURGICAL HISTORY Hx Coronary Artery Bypass Graft: Yes Hx Coronary Stent: Yes - ANESTHESIA Hx Anesthesia: Yes Hx Anesthesia Reactions: No Hx Malignant Hyperthermia: No Meds Allergies/Adverse Reactions: Allergies Allergy/AdvReac Type Severity Reaction Status Date / Time No Known Allergies Allergy Verified 02/06/17 13:47 Physical Exam - Head Exam Head Exam: NORMAL INSPECTION - Eye Exam Eye Exam: Normal appearance - ENT Exam ENT Exam: Mucous Membranes Moist - Respiratory Exam Respiratory Exam: Decreased Breath Sounds, Respiratory Distress - Cardiovascular Exam Cardiovascular Exam: Tachycardia - GI/Abdominal Exam GI & Abdominal Exam: Normal Bowel Sounds - Neurological Exam Neurological exam: Altered, CN II-XII Intact Results - Vital Signs Recent Vital Signs: Last Vital Signs Temp 97.8 F 03/13/17 08:36 Pulse 80 03/13/17 08:36 Resp 20 03/13/17 08:36 BP 88/47 L 03/13/17 08:36 Pulse Ox 92 L 03/13/17 08:36 - Labs Result Diagrams: 03/12/17 05:00 03/12/17 05:00 Labs: Laboratory Results - last 24 hr 03/12/17 03/12/17 03/13/17 11:26 15:55 05:03 pCO2 37 pO2 134 H HCO3 27.3 ABG pH 7.47 H ABG Total CO2 28.0 ABG O2 Saturation 98.8 H ABG O2 Content 12.4 L ABG Base Excess 3.1 H ABG Hemoglobin 9.1 L ABG Carboxyhemoglobin 1.6 H POC ABG HHb (Measured) 1.2 ABG Methemoglobin 2.3 ABG O2 Capacity 12.6 L Kai Test Yes A-a O2 Difference 105.0 Hgb O2 Saturation 94.9 L Vent Mode Nasal cannula FiO2 40.0 POC Glucose (mg/dL) 87 138 H 03/13/17 05:06 pCO2 pO2 HCO3 ABG pH ABG Total CO2 ABG O2 Saturation ABG O2 Content ABG Base Excess ABG Hemoglobin ABG Carboxyhemoglobin POC ABG HHb (Measured) ABG Methemoglobin ABG O2 Capacity Kai Test A-a O2 Difference Hgb O2 Saturation Vent Mode FiO2 POC Glucose (mg/dL) 207 H Assessment & Plan (1) Altered mental status Status: Acute (2) Pleural effusion Status: Acute (3) Pneumonia Status: Acute (4) Shortness of breath Status: Acute Priority: High (5) CHF (congestive heart failure) Status: Chronic - Assessment and Plan (Free Text) Plan: Bipap pulmonary eval ID Iv antibiotics telemetry cardiology eval podiatry
--- NOTE | 2017-03-13 10:12 | CP.PCM.PN ---
Subjective - Date & Time of Evaluation Date of Evaluation: 03/13/17 Time of Evaluation: 10:10 - Subjective Subjective: patient is much more awake Has no fever Labs are pending Seen by Cardiology WBC yesterday dropped to 17 Objective - Vital Signs/Intake and Output Vital Signs (last 24 hours): Temp Pulse Resp BP Pulse Ox 97.8 F 80 20 88/47 L 92 L 03/13/17 08:36 03/13/17 08:36 03/13/17 08:36 03/13/17 08:36 03/13/17 08:36 - Medications Medications: Current Medications Acetaminophen (Tylenol 325mg Tab) 650 mg PO Q4H PRN PRN Reason: Pain, Mild (1-3) Last Admin: 03/12/17 21:32 Dose: 650 mg Atorvastatin Calcium (Lipitor) 10 mg PO [facility] Last Admin: 03/12/17 21:26 Dose: 10 mg Collagenase (Santyl) 1 applic TOP DAILY [facility] Last Admin: 03/12/17 10:00 Dose: 1 applic Docusate Sodium (Colace) 200 mg PO [facility] Last Admin: 03/12/17 21:25 Dose: Not Given Home Med (Albiglutide [Tanzeum]) [address] [facility] Home Med (Vorapaxar Sulfate [Zontivity]) 2.08 mg PO DAILY [facility] Piperacillin Sod/Tazobactam (Sod 2.25 gm/ Sodium Chloride) 100 mls @ 100 mls/ hr IVPB Q8 [facility] Last Admin: 03/13/17 01:46 Dose: 100 mls/hr Vancomycin HCl 500 mg/ Sodium (Chloride) 100 mls @ 100 mls/hr IVPB DAILY [facility] Last Admin: 03/12/17 09:15 Dose: 100 mls/hr Insulin Detemir (Levemir) 6 units SC [facility] Last Admin: 03/12/17 22:20 Dose: 6 units Insulin Human Regular (Humulin R) 0 units SC [facility] PRN Reason: Protocol Last Admin: 03/12/17 22:35 Dose: Not Given Megestrol Acetate (Megace) 400 mg PO DAILY [facility] Last Admin: 03/12/17 10:00 Dose: 400 mg Ondansetron HCl (Zofran Tab) 4 mg PO Q8H PRN PRN Reason: Nausea/Vomiting Pantoprazole Sodium (Protonix Ec Tab) 40 mg PO DAILY [facility] Last Admin: 03/12/17 10:00 Dose: 40 mg Sevelamer HCl (Renagel) 2,400 mg PO TID [facility] Last Admin: 03/12/17 16:38 Dose: 2,400 mg Sitagliptin Phosphate (Januvia) 25 mg PO DAILY [facility] Last Admin: 03/12/17 10:00 Dose: 25 mg Vitamin B Complex/Vit C/Folic Acid (Nephro-Niko) 1 tab PO DAILY [facility] Last Admin: 03/12/17 10:00 Dose: 1 tab - Labs Labs: 03/12/17 05:00 03/12/17 05:00 PT 20.2 Seconds (9.8-13.1) H 03/11/17 04:59 INR 1.8 (0.9-1.2) H 03/11/17 04:59 APTT 30.7 Seconds (25.6-37.1) 03/11/17 04:59 - Head Exam Head Exam: NORMAL INSPECTION - Eye Exam Eye Exam: Normal appearance - ENT Exam ENT Exam: Mucous Membranes Moist - Respiratory Exam Respiratory Exam: Decreased Breath Sounds - Cardiovascular Exam Cardiovascular Exam: REGULAR RHYTHM - GI/Abdominal Exam GI & Abdominal Exam: Normal Bowel Sounds - Neurological Exam Neurological Exam: Oriented x3 - Psychiatric Exam Psychiatric exam: Normal Mood Assessment and Plan (1) Altered mental status Status: Acute (2) Pleural effusion Status: Acute (3) Pneumonia Status: Acute (4) Shortness of breath Status: Acute (5) CHF (congestive heart failure) Status: Chronic - Assessment and Plan (Free Text) Plan: Con tmeds Con ttx follow up with Dr Marti re thoracentesis Iv antibiotics keep in telemetry
[2017-03-13 10:28] LABS: HEMOGLOBIN 9.8 g/dL (12.0-18.0); MEAN CELL VOLUME 71.2 fl (80.0-94.0); MEAN CORPUSCULAR HEMOGLOBIN 21.8 pg (27.0-31.0); MEAN CORPUSCULAR HGB CONC 30.6 g/dL (33.0-37.0); RBC 4.51 Mil/uL (4.40-5.90); RED CELL DISTRIBUTION WIDTH 24.5 % (11.5-14.5); WHITE BLOOD COUNT 14.2 K/uL (4.8-10.8)
[2017-03-13 10:39] LABS: ALB/GLOB RATIO 0.7 (1.0-2.1); ALBUMIN 3.4 g/dL (3.5-5.0); CALCIUM 8.9 mg/dL (8.4-10.2)
--- NOTE | 2017-03-13 10:48 | CP.PCM.PN ---
Subjective - Date & Time of Evaluation Date of Evaluation: 03/13/17 Time of Evaluation: 10:43 - Subjective Subjective: Patient and bed more awake today Responding much better Completed hemodialysis yesterday with ultrafiltration about 1500 mL plus Less shortness of breath Objective - Vital Signs/Intake and Output Vital Signs (last 24 hours): Temp Pulse Resp BP Pulse Ox 97.8 F 80 20 88/47 L 92 L 03/13/17 08:36 03/13/17 08:36 03/13/17 08:36 03/13/17 08:36 03/13/17 08:36 - Medications Medications: Current Medications Acetaminophen (Tylenol 325mg Tab) 650 mg PO Q4H PRN PRN Reason: Pain, Mild (1-3) Last Admin: 03/12/17 21:32 Dose: 650 mg Atorvastatin Calcium (Lipitor) 10 mg PO [facility] Last Admin: 03/12/17 21:26 Dose: 10 mg Collagenase (Santyl) 1 applic TOP DAILY [facility] Last Admin: 03/12/17 10:00 Dose: 1 applic Docusate Sodium (Colace) 200 mg PO [facility] Last Admin: 03/12/17 21:25 Dose: Not Given Home Med (Albiglutide [Tanzeum]) [address] [facility] (Vorapaxar Sulfate [Zontivity]) 2.08 mg PO DAILY [facility] Piperacillin Sod/Tazobactam (Sod 2.25 gm/ Sodium Chloride) 100 mls @ 100 mls/ hr IVPB Q8 [facility] Last Admin: 03/13/17 01:46 Dose: 100 mls/hr Vancomycin HCl 500 mg/ Sodium (Chloride) 100 mls @ 100 mls/hr IVPB DAILY [facility] Last Admin: 03/12/17 09:15 Dose: 100 mls/hr Insulin Detemir (Levemir) 6 units SC [facility] Last Admin: 03/12/17 22:20 Dose: 6 units Insulin Human Regular (Humulin R) 0 units SC [facility] PRN Reason: Protocol Last Admin: 03/12/17 22:35 Dose: Not Given Megestrol Acetate (Megace) 400 mg PO DAILY [facility] Last Admin: 03/12/17 10:00 Dose: 400 mg Ondansetron HCl (Zofran Tab) 4 mg PO Q8H PRN PRN Reason: Nausea/Vomiting Pantoprazole Sodium (Protonix Ec Tab) 40 mg PO DAILY [facility] Last Admin: 03/12/17 10:00 Dose: 40 mg Sevelamer HCl (Renagel) 2,400 mg PO TID [facility] Last Admin: 03/12/17 16:38 Dose: 2,400 mg Sitagliptin Phosphate (Januvia) 25 mg PO DAILY [facility] Last Admin: 03/12/17 10:00 Dose: 25 mg Vitamin B Complex/Vit C/Folic Acid (Nephro-Niko) 1 tab PO DAILY [facility] Last Admin: 03/12/17 10:00 Dose: 1 tab - Labs Labs: 03/13/17 09:30 03/12/17 05:00 PT 20.2 Seconds (9.8-13.1) H 03/11/17 04:59 INR 1.8 (0.9-1.2) H 03/11/17 04:59 APTT 30.7 Seconds (25.6-37.1) 03/11/17 04:59 - Constitutional Appears: No Acute Distress - ENT Exam ENT Exam: Mucous Membranes Moist - Respiratory Exam Respiratory Exam: absent: Chest Wall Tenderness - Cardiovascular Exam Cardiovascular Exam: absent: JVD, Rubs - GI/Abdominal Exam GI & Abdominal Exam: Soft, Normal Bowel Sounds. absent: Guarding - Extremities Exam Extremities Exam: absent: Calf Tenderness - Back Exam Back Exam: absent: CVA tenderness (L), CVA tenderness (R) - Neurological Exam Neurological Exam: Alert Assessment and Plan (1) Altered mental status Status: Acute (2) ESRD needing dialysis Assessment & Plan: End stage renal disease on hemodialysis with volume overloaded and also right pleural effusion enlarged and less left pleural effusion see the CT scan Patient is scheduled to have regular dialysis today with additional ultrafiltration about 1500 mL if possible ith potassium bath 2 mEq and bicarbonate 34 Hemoglobin improving up to 9.8 Vital signs stable Patient has multitude of medical problem including but not limited to diabetes mellitus to continue to control Peripheral vascular disease with status post amputation of the toe on the right side at the last admission also noted the right big toe has black spot with a status post angioplasty as described by the product development scientist Leukocytosis patient receiving antibiotics and seems back to be improving Status: Acute (3) Pneumonia Status: Acute
[2017-03-13] MEDS: Insulin Regular 100 units/ml SC SCH ×4 (10:52→21:39)
[2017-03-13] MEDS: Megestrol Acetate 40 mg/ml Cup PO SCH (10:52)
[2017-03-13] MEDS: Multivitamin Vitamin B Complex (Nephro-Vite) Tab PO SCH (10:53)
[2017-03-13] MEDS: Pantoprazole 40 mg EC Tab PO SCH (10:53)
[2017-03-13] MEDS: Santyl Collagenase OINTMENT TOP SCH (10:54)
--- NOTE | 2017-03-13 11:24 | CP.PCM.PN ---
Subjective - Date & Time of Evaluation Date of Evaluation: 03/13/17 Time of Evaluation: 09:45 - Subjective Subjective: FEELS BETTER NO CHEST PAIN LESS SOB Objective - Vital Signs/Intake and Output Vital Signs (last 24 hours): Temp Pulse Resp BP Pulse Ox 97.8 F 80 20 88/47 L 92 L 03/13/17 08:36 03/13/17 08:36 03/13/17 08:36 03/13/17 08:36 03/13/17 08:36 - Medications Medications: Current Medications Acetaminophen (Tylenol 325mg Tab) 650 mg PO Q4H PRN PRN Reason: Pain, Mild (1-3) Last Admin: 03/13/17 11:00 Dose: 650 mg Albumin Human (Albumin Human 25% (12.5 Gm/50 Ml)) 50 gm IV ONCE ONE Stop: 03/13/17 11:31 Atorvastatin Calcium (Lipitor) 10 mg PO [facility] Last Admin: 03/12/17 21:26 Dose: 10 mg Collagenase (Santyl) 1 applic TOP DAILY [facility] Last Admin: 03/13/17 10:54 Dose: 1 applic Docusate Sodium (Colace) 200 mg PO [facility] Last Admin: 03/12/17 21:25 Dose: Not Given Home Med (Albiglutide [Tanzeum]) 30 mg SC [facility] [place] Home Med (Vorapaxar Sulfate [Zontivity]) 2.08 mg PO DAILY [facility] Piperacillin Sod/Tazobactam (Sod 2.25 gm/ Sodium Chloride) 100 mls @ 100 mls/ hr IVPB Q8 [facility] Last Admin: 03/13/17 10:54 Dose: 100 mls/hr Vancomycin HCl 500 mg/ Sodium (Chloride) 100 mls @ 100 mls/hr IVPB DAILY [facility] Last Admin: 03/13/17 10:55 Dose: 100 mls/hr Insulin Detemir (Levemir) 6 units [address] [facility] Last Admin: 03/12/17 22:20 Dose: 6 units Insulin Human Regular (Humulin R) 0 units SC [facility] PRN Reason: Protocol Last Admin: 03/13/17 10:52 Dose: Not Given Megestrol Acetate (Megace) 400 mg PO DAILY [facility] Last Admin: 03/13/17 10:52 Dose: 400 mg Ondansetron HCl (Zofran Tab) 4 mg PO Q8H PRN PRN Reason: Nausea/Vomiting Pantoprazole Sodium (Protonix Ec Tab) 40 mg PO DAILY [facility] Last Admin: 03/13/17 10:53 Dose: 40 mg Sevelamer HCl (Renagel) 2,400 mg PO TID [facility] Last Admin: 03/13/17 10:53 Dose: 2,400 mg Sitagliptin Phosphate (Januvia) 25 mg PO DAILY [facility] Last Admin: 03/13/17 10:53 Dose: 25 mg Vitamin B Complex/Vit C/Folic Acid (Nephro-Niko) 1 tab PO DAILY [facility] Last Admin: 03/13/17 10:53 Dose: 1 tab - Labs Labs: 03/13/17 09:30 03/13/17 09:30 PT 20.2 Seconds (9.8-13.1) H 03/11/17 04:59 INR 1.8 (0.9-1.2) H 03/11/17 04:59 APTT 30.7 Seconds (25.6-37.1) 03/11/17 04:59 - Respiratory Exam Respiratory Exam: Decreased Breath Sounds - Cardiovascular Exam Cardiovascular Exam: REGULAR RHYTHM, +S1, +S2 - Extremities Exam Additional comments: NO LE EDEMA ISCHEMIC RIGHT FOOT - Additional Findings Additional findings: WASHROOM OPERATOR WITH VVI PACING WBC DECREASED TO 14.2 RENAL, PULMONARY, PODIATRY AND INTERVENTIONAL CARDIOLOGY NOTES REVIEWED Assessment and Plan - Assessment and Plan (Free Text) Assessment: CAD PNEUMONIA RIGHT PLEURAL EFFUSION PAD WITH ISCHEMIC RT FOOT and RECENT AMPUTATION OF RT SECOND TOE DM CRF ON HD Plan: CONTINUE O2, IV ANTIBIOTICS, ATORVASTATIN, INSULIN, JANUVIA FOR RT THORACENTESIS BY IR TOMORROW
[2017-03-13] MEDS ORDERED: Albumin Human 25% (12.5 gm/50 ml) IV ONE (11:30)
--- NOTE | 2017-03-13 12:41 | RAD ---
PROCEDURE: Right Foot Radiographs. HISTORY: r/o soft tissue emphysema COMPARISON: 02/06/2017 FINDINGS: BONES: Status post amputation 2nd digit at metatarsal phalangeal articulation. No acute fracture. JOINTS: Normal. SOFT TISSUES: Vascular calcification. No evidence of subcutaneous emphysema. OTHER FINDINGS: None. IMPRESSION: Indications 2nd digit. No evidence of subcutaneous emphysema.
[2017-03-13] MEDS: Oxycodone/Acetaminophen 5/325 mg Tab PO PRN (15:28)
[2017-03-13] MEDS: Insulin Detemir 100 Units/ml Inj SC SCH (21:37)
[2017-03-14] MEDS: Oxycodone/Acetaminophen 5/325 mg Tab PO PRN ×4 (01:08→22:02)
[2017-03-14 06:33] LABS: HEMOGLOBIN 8.6 g/dL (12.0-18.0); MEAN CELL VOLUME 70.7 fl (80.0-94.0); MEAN CORPUSCULAR HEMOGLOBIN 21.4 pg (27.0-31.0); MEAN CORPUSCULAR HGB CONC 30.3 g/dL (33.0-37.0); WHITE BLOOD COUNT 9.7 K/uL (4.8-10.8)
[2017-03-14 08:11] LABS: INR 1.6 (0.9-1.2); PROTHROMBIN TIME 17.7 Seconds (9.8-13.1)
--- NOTE | 2017-03-14 08:49 | CP.PCM.PN ---
Subjective - Date & Time of Evaluation Date of Evaluation: 03/14/17 Time of Evaluation: 08:36 - Subjective Subjective: 76 y/o male seen at bedside 3 weeks s/p right 2nd digit amputation (DOS: 02/16/17 ). Pt appears to be doing well today. Pt is AAOx3 and is in NAD. Pt appears to be resting comfortably in his bed. Pt denies of any other pedal complains at this time. Pt denies of any F/N/V/C/SOB. Pt's dressing is clean dry and intact. Objective - Vital Signs/Intake and Output Vital Signs (last 24 hours): Temp Pulse Resp BP Pulse Ox 96.8 F L 97 H 18 118/58 L 95 03/14/17 08:00 03/14/17 08:00 03/14/17 08:00 03/14/17 08:00 03/14/17 08:00 Intake and Output: 03/14/17 03/14/17 06:59 18:59 Intake Total 850 Balance 850 - Medications Medications: Current Medications Acetaminophen (Tylenol 325mg Tab) 650 mg PO Q4H PRN PRN Reason: Pain, Mild (1-3) Last Admin: 03/13/17 11:00 Dose: 650 mg Atorvastatin Calcium (Lipitor) 10 mg PO [facility] Last Admin: 03/13/17 21:38 Dose: 10 mg Collagenase (Santyl) 1 applic TOP DAILY [facility] Last Admin: 03/13/17 10:54 Dose: 1 applic Docusate Sodium (Colace) 200 mg PO [facility] Last Admin: 03/13/17 21:38 Dose: Not Given Home Med (Albiglutide [Tanzeum]) 30 mg SC [facility] [place] Home Med (Vorapaxar Sulfate [Zontivity]) 2.08 mg PO DAILY [facility] Piperacillin Sod/Tazobactam (Sod 2.25 gm/ Sodium Chloride) 100 mls @ 100 mls/ hr IVPB Q8 [facility] Last Admin: 03/14/17 01:10 Dose: 100 mls/hr Vancomycin HCl 500 mg/ Sodium (Chloride) 100 mls @ 100 mls/hr IVPB DAILY [facility] Last Admin: 03/13/17 10:55 Dose: 100 mls/hr Insulin Detemir (Levemir) 6 units SC [facility] Last Admin: 03/13/17 21:37 Dose: 6 units Insulin Human Regular (Humulin R) 0 units SC [facility] PRN Reason: Protocol Last Admin: 03/13/17 21:39 Dose: Not Given Megestrol Acetate (Megace) 400 mg PO DAILY [facility] Last Admin: 03/13/17 10:52 Dose: 400 mg Ondansetron HCl (Zofran Tab) 4 mg PO Q8H PRN PRN Reason: Nausea/Vomiting Oxycodone/Acetaminophen (Percocet 5/325 Mg Tab) 1 tab PO Q6 PRN PRN Reason: Pain, severe (8-10) Stop: 03/16/17 13:41 Last Admin: 03/14/17 01:08 Dose: 1 tab Pantoprazole Sodium (Protonix Ec Tab) 40 mg PO DAILY [facility] Last Admin: 03/13/17 10:53 Dose: 40 mg Sevelamer HCl (Renagel) 2,400 mg PO TID [facility] Last Admin: 03/13/17 17:07 Dose: 2,400 mg Sitagliptin Phosphate (Januvia) 25 mg PO DAILY [facility] Last Admin: 03/13/17 10:53 Dose: 25 mg Vitamin B Complex/Vit C/Folic Acid (Nephro-Niko) 1 tab PO DAILY [facility] Last Admin: 03/13/17 10:53 Dose: 1 tab - Labs Labs: 03/14/17 05:00 03/13/17 09:30 PT 17.7 Seconds (9.8-13.1) H 03/14/17 07:30 INR 1.6 (0.9-1.2) H 03/14/17 07:30 APTT 30.7 Seconds (25.6-37.1) 03/11/17 04:59 - Constitutional Appears: Well, Non-toxic, No Acute Distress - Extremities Exam Additional comments: Right lower extremity focused exam: VASC: DP pulse faintly palpable, PT pulses are palpable 1/4, BUTTONER: < 3 sec x 4, Temperature gradient: cool to cool, no pitting or non pitting edema noted DERM: Surgical site shows dehiscence and proximal margin shows (+) probe-to- bone. no active drainage, no malodor, no erythema noted, moderate tere-wound maceration noted to skin surrounding incision site which also shoes islands of fibrosis, De-roofed bullae site noted on the plantar medial arch with a necro- fibro-granular base. The bullae site has an opening which tracks deep and shows a tendon, bullae base is absent and minor active drainage with minimal purulence , however underlying fluctuance noted. Superficial wound noted on the dorsum of the ankle which shows granular base with no necrosis. NEURO: protective sensation is grossly sensation intact ORTHO: No pain on palpation noted to surgical site. pain present when dismissing drainage from the plantar medial arch on previously de-roofed bullae - Neurological Exam Neurological Exam: Alert, Awake, Oriented x3 - Psychiatric Exam Psychiatric exam: Normal Affect, Normal Mood Assessment and Plan - Assessment and Plan (Free Text) Assessment: 76 year old male with complicated Chance grade 4 ulceration, 3 weeks s/p right 2nd digit amputation; secondary to diabetes and PAD Plan: Pt evaluated and chart reviewed Pt discussed in details with attending Dr. Lebron Labs, and vitals reviewed. Afebrile, WBC @ 9.7 today, down from yesterday @ 14.2 Pt admitted for pneumonia, which is likely source of leukocytosis. Cultures taken - (Prelim): shows growth of Gram negative rods Dressing applied using santyl, DSD, Kerlix. Dr. Ferris following patient closely: -with the combination of PAD and low CO from cardiomyopathy along with his other co-morbidities, it is best to leave the foot alone as long as it is viable, even if cyanotic. Pt may not be capable enough to survive a major surgery. He will consider a BKA if that is mandated. Continue IV abx per primary provider. Podiatry to continue to follow pt while in-house.
[2017-03-14] MEDS: Megestrol Acetate 40 mg/ml Cup PO SCH (09:15)
[2017-03-14] MEDS: Multivitamin Vitamin B Complex (Nephro-Vite) Tab PO SCH (09:15)
[2017-03-14] MEDS: Insulin Regular 100 units/ml SC SCH ×4 (09:16→21:59)
--- NOTE | 2017-03-14 09:24 | CP.PCM.PN ---
Subjective - Date & Time of Evaluation Date of Evaluation: 03/14/17 Time of Evaluation: 09:24 - Subjective Subjective: CLINICALLY IMPROVED SOB RESOLVED Objective - Vital Signs/Intake and Output Vital Signs (last 24 hours): Temp Pulse Resp BP Pulse Ox 96.8 F L 97 H 18 118/58 L 95 03/14/17 08:00 03/14/17 08:00 03/14/17 08:00 03/14/17 08:00 03/14/17 08:00 Intake and Output: 03/14/17 03/14/17 06:59 18:59 Intake Total 850 Balance 850 - Medications Medications: Current Medications Acetaminophen (Tylenol 325mg Tab) 650 mg PO Q4H PRN PRN Reason: Pain, Mild (1-3) Last Admin: 03/13/17 11:00 Dose: 650 mg Atorvastatin Calcium (Lipitor) 10 mg PO [facility] Last Admin: 03/13/17 21:38 Dose: 10 mg Collagenase (Santyl) 1 applic TOP DAILY [facility] Last Admin: 03/13/17 10:54 Dose: 1 applic Docusate Sodium (Colace) 200 mg PO [facility] Last Admin: 03/13/17 21:38 Dose: Not Given Home Med (Albiglutide [Tanzeum]) 30 mg SC [facility] [place] Home Med (Vorapaxar Sulfate [Zontivity]) 2.08 mg PO DAILY [facility] Piperacillin Sod/Tazobactam (Sod 2.25 gm/ Sodium Chloride) 100 mls @ 100 mls/ hr IVPB Q8 [facility] Last Admin: 03/14/17 09:16 Dose: 100 mls/hr Vancomycin HCl 500 mg/ Sodium (Chloride) 100 mls @ 100 mls/hr IVPB DAILY [facility] Last Admin: 03/14/17 09:17 Dose: 100 mls/hr Insulin Detemir (Levemir) 6 units SC [facility] Last Admin: 03/13/17 21:37 Dose: 6 units Insulin Human Regular (Humulin R) 0 units SC [facility] PRN Reason: Protocol Last Admin: 03/14/17 09:16 Dose: 2 unit Megestrol Acetate (Megace) 400 mg PO DAILY [facility] Last Admin: 03/14/17 09:15 Dose: 400 mg Ondansetron HCl (Zofran Tab) 4 mg PO Q8H PRN PRN Reason: Nausea/Vomiting Oxycodone/Acetaminophen (Percocet 5/325 Mg Tab) 1 tab PO Q6 PRN PRN Reason: Pain, severe (8-10) Stop: 03/16/17 13:41 Last Admin: 03/14/17 09:19 Dose: 1 tab Pantoprazole Sodium (Protonix Ec Tab) 40 mg PO DAILY [facility] Last Admin: 03/13/17 10:53 Dose: 40 mg Saccharomyces Boulardii (Florastor) 250 mg PO BID [facility] Sevelamer HCl (Renagel) 2,400 mg PO TID [facility] Last Admin: 03/14/17 09:16 Dose: 2,400 mg Sitagliptin Phosphate (Januvia) 25 mg PO DAILY [facility] Last Admin: 03/14/17 09:15 Dose: 25 mg Vitamin B Complex/Vit C/Folic Acid (Nephro-Niko) 1 tab PO DAILY [facility] Last Admin: 03/14/17 09:15 Dose: 1 tab - Labs Labs: 03/14/17 05:00 03/13/17 09:30 PT 17.7 Seconds (9.8-13.1) H 03/14/17 07:30 INR 1.6 (0.9-1.2) H 03/14/17 07:30 APTT 30.7 Seconds (25.6-37.1) 03/11/17 04:59 - Constitutional Appears: No Acute Distress - Head Exam Head Exam: ATRAUMATIC, NORMAL INSPECTION, NORMOCEPHALIC - Eye Exam Eye Exam: EOMI, Normal appearance, PERRL Pupil Exam: NORMAL ACCOMODATION, PERRL - ENT Exam ENT Exam: Mucous Membranes Moist, Normal Exam - Neck Exam Neck Exam: Full ROM, Normal Inspection. absent: Lymphadenopathy - Respiratory Exam Respiratory Exam: Clear to Ausculation Bilateral, NORMAL BREATHING PATTERN - Cardiovascular Exam Cardiovascular Exam: REGULAR RHYTHM, +S1, +S2. absent: Murmur - GI/Abdominal Exam GI & Abdominal Exam: Soft, Normal Bowel Sounds. absent: Tenderness - Rectal Exam Rectal Exam: NORMAL INSPECTION - Extremities Exam Extremities Exam: Full ROM, Normal Capillary Refill, Normal Inspection. absent : Joint Swelling, Pedal Edema - Back Exam Back Exam: NORMAL INSPECTION - Neurological Exam Neurological Exam: Alert, Awake, CN II-XII Intact, Normal Gait, Oriented x3 - Psychiatric Exam Psychiatric exam: Normal Affect, Normal Mood - Skin Skin Exam: Dry, Intact, Normal Color, Warm Assessment and Plan - Assessment and Plan (Free Text) Assessment: PLEURAL EFFUSION ESRD Plan: FOR THORACENTESIS TODAY
--- NOTE | 2017-03-14 09:24 | CP.PCM.PN ---
Subjective - Date & Time of Evaluation Date of Evaluation: 03/14/17 Time of Evaluation: 09:24 - Subjective Subjective: pt seen and examined at bedside this morning. No acute events overnight. Afebrile. More alert and responsive today. Lying in bed comfortbaly, no acute distress. No new complaints. Denies fever/chills, headaches, changes in vision, CP/SOB/Palptations, N/V/D/C/, urinary symptoms. Objective - Vital Signs/Intake and Output Vital Signs (last 24 hours): Temp Pulse Resp BP Pulse Ox 96.8 F L 97 H 18 118/58 L 95 03/14/17 08:00 03/14/17 08:00 03/14/17 08:00 03/14/17 08:00 03/14/17 08:00 Intake and Output: 03/14/17 03/14/17 06:59 18:59 Intake Total 850 Balance 850 - Medications Medications: Current Medications Acetaminophen (Tylenol 325mg Tab) 650 mg PO Q4H PRN PRN Reason: Pain, Mild (1-3) Last Admin: 03/13/17 11:00 Dose: 650 mg Atorvastatin Calcium (Lipitor) 10 mg PO [facility] Last Admin: 03/13/17 21:38 Dose: 10 mg Collagenase (Santyl) 1 applic TOP DAILY [facility] Last Admin: 03/13/17 10:54 Dose: 1 applic Docusate Sodium (Colace) 200 mg PO [facility] Last Admin: 03/13/17 21:38 Dose: Not Given Home Med (Albiglutide [Tanzeum]) 30 mg [place] [facility] [place] Med (Vorapaxar Sulfate [Zontivity]) 2.08 mg PO DAILY [facility] Piperacillin Sod/Tazobactam (Sod 2.25 gm/ Sodium Chloride) 100 mls @ 100 mls/ hr IVPB Q8 [facility] Last Admin: 03/14/17 09:16 Dose: 100 mls/hr Vancomycin HCl 500 mg/ Sodium (Chloride) 100 mls @ 100 mls/hr IVPB DAILY [facility] Last Admin: 03/14/17 09:17 Dose: 100 mls/hr Insulin Detemir (Levemir) 6 units SC [facility] Last Admin: 03/13/17 21:37 Dose: 6 units Insulin Human Regular (Humulin R) 0 units SC [facility] PRN Reason: Protocol Last Admin: 03/14/17 09:16 Dose: 2 unit Megestrol Acetate (Megace) 400 mg PO DAILY [facility] Last Admin: 03/14/17 09:15 Dose: 400 mg Ondansetron HCl (Zofran Tab) 4 mg PO Q8H PRN PRN Reason: Nausea/Vomiting Oxycodone/Acetaminophen (Percocet 5/325 Mg Tab) 1 tab PO Q6 PRN PRN Reason: Pain, severe (8-10) Stop: 03/16/17 13:41 Last Admin: 03/14/17 09:19 Dose: 1 tab Pantoprazole Sodium (Protonix Ec Tab) 40 mg PO DAILY [facility] Last Admin: 03/13/17 10:53 Dose: 40 mg Saccharomyces Boulardii (Florastor) 250 mg PO BID [facility] Sevelamer HCl (Renagel) 2,400 mg PO TID [facility] Last Admin: 03/14/17 09:16 Dose: 2,400 mg Sitagliptin Phosphate (Januvia) 25 mg PO DAILY [facility] Last Admin: 03/14/17 09:15 Dose: 25 mg Vitamin B Complex/Vit C/Folic Acid (Nephro-Niko) 1 tab PO DAILY [facility] Last Admin: 03/14/17 09:15 Dose: 1 tab - Labs Labs: 03/14/17 05:00 03/13/17 09:30 PT 17.7 Seconds (9.8-13.1) H 03/14/17 07:30 INR 1.6 (0.9-1.2) H 03/14/17 07:30 APTT 30.7 Seconds (25.6-37.1) 03/11/17 04:59 - Constitutional Appears: Non-toxic, No Acute Distress - Eye Exam Eye Exam: EOMI Pupil Exam: PERRL - ENT Exam ENT Exam: Mucous Membranes Moist Additional comments: erythematous tongue - Neck Exam Neck Exam: Normal Inspection - Respiratory Exam Respiratory Exam: Rales, NORMAL BREATHING PATTERN. absent: Respiratory Distress - Cardiovascular Exam Cardiovascular Exam: REGULAR RHYTHM, RRR, +S1, +S2. absent: Gallop, JVD, Rubs, Murmur - GI/Abdominal Exam GI & Abdominal Exam: Soft, Normal Bowel Sounds. absent: Tenderness - Extremities Exam Extremities Exam: Tenderness. absent: Calf Tenderness, Pedal Edema Additional comments: right LE bandaging done by podiatry team today. C/D/I. - Neurological Exam Neurological Exam: Alert, Awake, CN II-XII Intact Assessment and Plan (1) Pleural effusion Assessment & Plan: pt to go for thoracentesis today Status: Acute (2) ESRD needing dialysis Assessment & Plan: currently on dialysis Status: Acute (3) Right foot ulcer Assessment & Plan: being followed by podiatry no intervention at this point, peripheral vasc insuff likely due to poor Ejection fraction as per cardiology, will continue to follow. Status: Chronic (4) Shortness of breath at rest Status: Resolved
[2017-03-14] MEDS: Pantoprazole 40 mg EC Tab PO SCH (09:25)
--- NOTE | 2017-03-14 10:31 | CP.PCM.PN ---
Subjective - Date & Time of Evaluation Date of Evaluation: 03/14/17 Time of Evaluation: 08:00 - Subjective Subjective: NO CHEST PAIN BREATHING BETTER Objective - Vital Signs/Intake and Output Vital Signs (last 24 hours): Temp Pulse Resp BP Pulse Ox 96.8 F L 97 H 18 118/58 L 95 03/14/17 08:00 03/14/17 08:00 03/14/17 08:00 03/14/17 08:00 03/14/17 08:00 Intake and Output: 03/14/17 03/14/17 06:59 18:59 Intake Total 850 Balance 850 - Medications Medications: Current Medications Acetaminophen (Tylenol 325mg Tab) 650 mg PO Q4H PRN PRN Reason: Pain, Mild (1-3) Last Admin: 03/13/17 11:00 Dose: 650 mg Atorvastatin Calcium (Lipitor) 10 mg PO [facility] Last Admin: 03/13/17 21:38 Dose: 10 mg Collagenase (Santyl) 1 applic TOP DAILY [facility] Last Admin: 03/13/17 10:54 Dose: 1 applic Docusate Sodium (Colace) 200 mg PO [facility] Last Admin: 03/13/17 21:38 Dose: Not Given Home Med (Albiglutide [Tanzeum]) 30 mg SC [facility] Home Med (Vorapaxar Sulfate [Zontivity]) 2.08 mg PO DAILY [facility] Piperacillin Sod/Tazobactam (Sod 2.25 gm/ Sodium Chloride) 100 mls @ 100 mls/ hr IVPB Q8 [facility] Last Admin: 03/14/17 09:16 Dose: 100 mls/hr Vancomycin HCl 500 mg/ Sodium (Chloride) 100 mls @ 100 mls/hr IVPB DAILY [facility] Last Admin: 03/14/17 09:17 Dose: 100 mls/hr Insulin Detemir (Levemir) 6 units SC [facility] Last Admin: 03/13/17 21:37 Dose: 6 units Insulin Human Regular (Humulin R) 0 units SC [facility] PRN Reason: Protocol Last Admin: 03/14/17 09:16 Dose: 2 unit Megestrol Acetate (Megace) 400 mg PO DAILY [facility] Last Admin: 03/14/17 09:15 Dose: 400 mg Ondansetron HCl (Zofran Tab) 4 mg PO Q8H PRN PRN Reason: Nausea/Vomiting Oxycodone/Acetaminophen (Percocet 5/325 Mg Tab) 1 tab PO Q6 PRN PRN Reason: Pain, severe (8-10) Stop: 03/16/17 13:41 Last Admin: 03/14/17 09:19 Dose: 1 tab Pantoprazole Sodium (Protonix Ec Tab) 40 mg PO DAILY [facility] Last Admin: 03/14/17 09:25 Dose: 40 mg Saccharomyces Boulardii (Florastor) 250 mg PO BID [facility] Sevelamer HCl (Renagel) 2,400 mg PO TID [facility] Last Admin: 03/14/17 09:16 Dose: 2,400 mg Sitagliptin Phosphate (Januvia) 25 mg PO DAILY [facility] Last Admin: 03/14/17 09:15 Dose: 25 mg Vitamin B Complex/Vit C/Folic Acid (Nephro-Niko) 1 tab PO DAILY [facility] Last Admin: 03/14/17 09:15 Dose: 1 tab - Labs Labs: 03/14/17 05:00 03/13/17 09:30 PT 17.7 Seconds (9.8-13.1) H 03/14/17 07:30 INR 1.6 (0.9-1.2) H 03/14/17 07:30 APTT 30.7 Seconds (25.6-37.1) 03/11/17 04:59 - Respiratory Exam Respiratory Exam: Decreased Breath Sounds - Cardiovascular Exam Cardiovascular Exam: REGULAR RHYTHM, +S1, +S2 - Extremities Exam Additional comments: RIGHT FOOT IS CYANOTIC BUT WARM AND ABOUT THE SAME LAST ADMISSION RIGHT FOOT PULSES PRESENT - Additional Findings 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 PACING WBC 9.7 Assessment and Plan - Assessment and Plan (Free Text) Assessment: CAD PNEUMONIA HYPERTENSION PAD-CYANOTIC RIGHT FOOT ABOUT THE SAME SINCE LAST ADMISSION AND WITH RECENT RLE REVASCULARIZATION AND RIGHT FOOT PULSES DM CRF ON HD Plan: CONTINUE ANTIBIOTICS, ATORVASTATIN, INSULIN, JANUVIA, HD FOR THORACENTESIS TODAY LE ARTERIAL DUPLEX PENDING DR ROBERSON AND I SPOKE AND WE BELIEVE THAT HIS RIGHT FOOT CYANOSIS IS A COMBINATION OF PAD AND LOW CARDIAC OUTPUT FROM HIS CARDIOMYOPATHY AND LONG THE FOOT IS WARM AND HAS PULSES THAT THIS WILL BE HIS BASELINE AFTER A SUCCESSFUL RLE PERIPHERAL REVASCULARIZATION BY DR ROBERSON ABOUT 6 WEEKS AGO. AND LONG THE FOOT IS VIABLE, EVEN IF CYANOTIC, WE SHOULD LEAVE WELL ENOUGH ALONE ESPECIALLY IN SUCH A SERIOUSLY ILL PATIENT WHO MAY NOT SURVIVE ANY MAJOR SURGICAL PROCEDURE. IF THE RIGHT FOOT BECOMES GANGRENOUS IN THE FUTURE THEN A CHEO AMPUTATION CAN BE CONSIDERED AT THAT TIME.
--- NOTE | 2017-03-14 10:36 | CP.PCM.PN ---
Subjective - Date & Time of Evaluation Date of Evaluation: 03/14/17 Time of Evaluation: 10:32 - Subjective Subjective: Patient sitting up in the chair Patient in good mood today Conscious and verbalizing and discussing other things as well Less shortness of breath and difficulty breathing I spoke to his yesterday I met her in the floor and at the bedside. 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 I order serum iron and ferritin level EPO 15,000 units stat dose now one then every dialysis Objective - Vital Signs/Intake and Output Vital Signs (last 24 hours): Temp Pulse Resp BP Pulse Ox 96.8 F L 97 H 18 118/58 L 95 03/14/17 08:00 03/14/17 08:00 03/14/17 08:00 03/14/17 08:00 03/14/17 08:00 Intake and Output: 03/14/17 03/14/17 06:59 18:59 Intake Total 850 Balance 850 - Medications Medications: Current Medications Acetaminophen (Tylenol 325mg Tab) 650 mg PO Q4H PRN PRN Reason: Pain, Mild (1-3) Last Admin: 03/13/17 11:00 Dose: 650 mg Atorvastatin Calcium (Lipitor) 10 mg PO [facility] Last Admin: 03/13/17 21:38 Dose: 10 mg Collagenase (Santyl) 1 applic TOP DAILY [facility] Last Admin: 03/13/17 10:54 Dose: 1 applic Docusate Sodium (Colace) 200 mg PO [facility] Last Admin: 03/13/17 21:38 Dose: Not Given Home Med (Albiglutide [Tanzeum]) 30 mg SC [facility] Home Med (Vorapaxar Sulfate [Zontivity]) 2.08 mg PO DAILY [facility] Piperacillin Sod/Tazobactam (Sod 2.25 gm/ Sodium Chloride) 100 mls @ 100 mls/ hr IVPB Q8 [facility] Last Admin: 07/13/17 09:16 Dose: 100 mls/hr Vancomycin HCl 500 mg/ Sodium (Chloride) 100 mls @ 100 mls/hr IVPB DAILY [facility] Last Admin: 03/14/17 09:17 Dose: 100 mls/hr Insulin Detemir (Levemir) 6 units SC [facility] Last Admin: 03/13/17 21:37 Dose: 6 units Insulin Human Regular (Humulin R) 0 units SC [facility] PRN Reason: Protocol Last Admin: 03/14/17 09:16 Dose: 2 unit Megestrol Acetate (Megace) 400 mg PO DAILY [facility] Last Admin: 03/14/17 09:15 Dose: 400 mg Ondansetron HCl (Zofran Tab) 4 mg PO Q8H PRN PRN Reason: Nausea/Vomiting Oxycodone/Acetaminophen (Percocet 5/325 Mg Tab) 1 tab PO Q6 PRN PRN Reason: Pain, severe (8-10) Stop: 03/16/17 13:41 Last Admin: 03/14/17 09:19 Dose: 1 tab Pantoprazole Sodium (Protonix Ec Tab) 40 mg PO DAILY [facility] Last Admin: 03/14/17 09:25 Dose: 40 mg Saccharomyces Boulardii (Florastor) 250 mg PO BID [facility] Sevelamer HCl (Renagel) 2,400 mg PO TID [facility] Last Admin: 03/14/17 09:16 Dose: 2,400 mg Sitagliptin Phosphate (Januvia) 25 mg PO DAILY [facility] Last Admin: 03/14/17 09:15 Dose: 25 mg Vitamin B Complex/Vit C/Folic Acid (Nephro-Niko) 1 tab PO DAILY [facility] Last Admin: 03/14/17 09:15 Dose: 1 tab - Labs Labs: 03/14/17 05:00 03/13/17 09:30 PT 17.7 Seconds (9.8-13.1) H 03/14/17 07:30 INR 1.6 (0.9-1.2) H 03/14/17 07:30 APTT 30.7 Seconds (25.6-37.1) 03/11/17 04:59 Assessment and Plan (1) Altered mental status Status: Acute (2) ESRD needing dialysis Status: Acute (3) Pneumonia Status: Acute
--- NOTE | 2017-03-14 10:36 | PQF GENQUE ---
Dr. Huff, Please clarify the underlying cause of patient's altered mental status and relate that cause to the alteration in mental status: Cardiac condition Electrolyte/metabolic imbalance Infectious process Neurologic condition Psychiatric condition Respiratory condition Other condition (please specify) Clinically unable to determine Unknown This form is a permanent part of the medical record Clarification of your documentation is requested to better reflect the severity of illness and intensity of treatment of your patient. Indicators present [] Specify: [] [] Specify: [] [] Specify: [] [] Specify: [] Location in the medical record that reflects the above clinical findings: [] Treatment Provided: [] PHYSICIAN'S RESPONSE Based on your medical judgment of the clinical indicators outlined above please clarify the following: [] Practitioner response [] If unable to determine, please check the box, sign and date. Present On Admission (POA) Indicator: [] Present at the time of admission [] Not present at the time of admission [] Clinically Undetermined In responding to this query, please exercise your independent professional judgment. The fact that a question is asked does not imply that any particular answer is desired or expected. Thank you for your clarification on this documentation. If you have any questions please call. * Thank you, Doris Prajapati RN BSN ext. #[phone] MTDD
--- NOTE | 2017-03-14 10:40 | PQF GENQUE ---
Dr. Huff, 1.. Please specify type of pneumonia in the progress notes: Aspiration pneumonia Please document specific aspirate (food, liquids, etc.) Please indicate if this is postprocedural Bacterial (specify organism) Bronchopneumonia (specify organism) Interstitual pneumonia Organizing pneumonia/BOOP Pneumonia with influenza, [place] flu, or H1N1 flu RSV pneumonia Viral pneumonia Other pneumonia (specify organism or type) Clinically unable to determine Unknown 2. Please specify the organism causing the pneumonia: if known after the work up is completed Note: CAP, HAP, and HCAP indicate where the pneumonia This form is a permanent part of the medical record Clarification of your documentation is requested to better reflect the severity of illness and intensity of treatment of your patient. Indicators present [] Specify: [] [] Specify: [] [] Specify: [] [] Specify: [] Location in the medical record that reflects the above clinical findings: [] Treatment Provided: [] PHYSICIAN'S RESPONSE Based on your medical judgment of the clinical indicators outlined above please clarify the following: [] Practitioner response [] If unable to determine, please check the box, sign and date. Present On Admission (POA) Indicator: [] Present at the time of admission [] Not present at the time of admission [] Clinically Undetermined In responding to this query, please exercise your independent professional judgment. The fact that a question is asked does not imply that any particular answer is desired or expected. Thank you for your clarification on this documentation. If you have any questions please call. * Thank you Doris Prajapati RN BSN ext. #[phone] MTDD
--- NOTE | 2017-03-14 10:42 | PQF GENQUE ---
Dr. Huff, Please specify the type of heart failure in your progress notes: . 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 Indicators present [] Specify: [] [] Specify: [] [] Specify: [] [] Specify: [] Location in the medical record that reflects the above clinical findings: [] Treatment Provided: [] PHYSICIAN'S RESPONSE Based on your medical judgment of the clinical indicators outlined above please clarify the following: [] Practitioner response [] If unable to determine, please check the box, sign and date. Present On Admission (POA) Indicator: [] Present at the time of admission [] Not present at the time of admission [] Clinically Undetermined In responding to this query, please exercise your independent professional judgment. The fact that a question is asked does not imply that any particular answer is desired or expected. Thank you for your clarification on this documentation. If you have any questions please call. * Thank you, Doris Prajapati RN BSN ext. #[phone] MTDD
--- NOTE | 2017-03-14 10:51 | PQF GENQUE ---
Dr. Huff, Etiology of the Pleural Effusion? if known after the work up is completed: i.e. Bacterial (please specify causative organism if known) Congestive Hemothorax Hydropneumothorax Malignant (please specify primary malignancy site if known) Systemic lupus erythematosus Other type not specified above (please specify) OR: Unable to determine OR: Unknown This form is a permanent part of the medical record Clarification of your documentation is requested to better reflect the severity of illness and intensity of treatment of your patient. Indicators present [] Specify: [] [] Specify: [] [] Specify: [] [] Specify: [] Location in the medical record that reflects the above clinical findings: [] Treatment Provided: [] PHYSICIAN'S RESPONSE Based on your medical judgment of the clinical indicators outlined above please clarify the following: [] Practitioner response [] If unable to determine, please check the box, sign and date. Present On Admission (POA) Indicator: [] Present at the time of admission [] Not present at the time of admission [] Clinically Undetermined In responding to this query, please exercise your independent professional judgment. The fact that a question is asked does not imply that any particular answer is desired or expected. Thank you for your clarification on this documentation. If you have any questions please call. * Thank you, Doris Prajapati RN BSN ext. #[phone] MTDD
--- NOTE | 2017-03-14 10:57 | CARD ---
APPROVED REPORT EKG Measurement Heart [id number] <Conclusion> A Fib with Ventricular-paced rhythm BiV pacing Abnormal ECG
--- NOTE | 2017-03-14 11:20 | PQF GENQUE ---
Dr. Huff, Clarification of Pressure Ulcer(s): if in agreement (1) Sites? (2) Stages ? (3) POA? 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 Right Foot: full thickness tissue loss in which the base of the ulcer is covered 2. Sacrum: partial thickness loss of dermis presenting as a shallow ulcer Podiatry note: 3 weeks s/p right 2nd digit amputation (DOS: ). Imp.: complicated Chance grade 4 ulceration, 3 weeks s/p right 2nd digit amputation ; secondary to diabetes and PAD This form is a permanent part of the medical record Clarification of your documentation is requested to better reflect the severity of illness and intensity of treatment of your patient. Indicators present [] Specify: [] [] Specify: [] [] Specify: [] [] Specify: [] Location in the medical record that reflects the above clinical findings: [] Treatment Provided: [] PHYSICIAN'S RESPONSE Based on your medical judgment of the clinical indicators outlined above please clarify the following: [] Practitioner response [] If unable to determine, please check the box, sign and date. Present On Admission (POA) Indicator: [] Present at the time of admission [] Not present at the time of admission [] Clinically Undetermined In responding to this query, please exercise your independent professional judgment. The fact that a question is asked does not imply that any particular answer is desired or expected. Thank you for your clarification on this documentation. If you have any questions please call. * Thank you, Doris Prajapati RN BSN ext. #[phone] MTDD
[2017-03-14 11:32] LABS: VANCOMYCIN RANDOM 14.1 ug/mL
[2017-03-14] MEDS ORDERED: Epoetin Alfa 20000 UNIT/ML Inj SC ONE (12:00)
[2017-03-14] MEDS: Saccharomyces Boulardi 250 mg Cap PO SCH ×2 (12:40→16:08)
[2017-03-14] MEDS: Santyl Collagenase OINTMENT TOP SCH (12:42)
[2017-03-14] MEDS: Iodine 0.9% GEL TOP SCH (16:11)
[2017-03-14] MEDS: Insulin Detemir 100 Units/ml Inj SC SCH (21:57)
[2017-03-15] MEDS: Insulin Regular 100 units/ml SC SCH ×4 (06:49→22:01)
[2017-03-15 07:17] LABS: INR 1.4 (0.9-1.2); PROTHROMBIN TIME 16.3 Seconds (9.8-13.1)
[2017-03-15] MEDS: Pantoprazole 40 mg EC Tab PO SCH (08:41)
[2017-03-15] MEDS: Saccharomyces Boulardi 250 mg Cap PO SCH ×2 (08:41→16:43)
[2017-03-15] MEDS: Multivitamin Vitamin B Complex (Nephro-Vite) Tab PO SCH (08:42)
[2017-03-15] MEDS: Megestrol Acetate 40 mg/ml Cup PO SCH (08:42)
[2017-03-15] MEDS: Iodine 0.9% GEL TOP SCH (08:43)
--- NOTE | 2017-03-15 09:07 | CP.PCM.PN ---
Subjective - Date & Time of Evaluation Date of Evaluation: 03/15/17 Time of Evaluation: 06:15 - Subjective Subjective: 76 y/o male seen at bedside 3 and half weeks s/p right 2nd digit amputation (DOS : 02/16/17). Pt appears to be resting comfortably in his bed. Pt appears to be doing well today. Pt is AAOx3 and is in NAD. Pt denies of any other pedal complains at this time. Pt denies of any F/N/V/C/SOB. Pt's dressing is clean dry and intact. Objective - Vital Signs/Intake and Output Vital Signs (last 24 hours): Temp Pulse Resp BP Pulse Ox 98.2 F 83 18 102/57 L 100 03/15/17 08:19 03/15/17 08:19 03/15/17 08:19 03/15/17 08:19 03/15/17 08:19 Intake and Output: 03/15/17 03/15/17 06:59 18:59 Intake Total 300 Balance 300 - Medications Medications: Current Medications Acetaminophen (Tylenol 325mg Tab) 650 mg PO Q4H PRN PRN Reason: Pain, Mild (1-3) Last Admin: 03/13/17 11:00 Dose: 650 mg Atorvastatin Calcium (Lipitor) 10 mg PO [facility] Last Admin: 03/14/17 21:56 Dose: 10 mg Cadexomer Iodine (Iodosorb) 1 applic TOP DAILY [facility] Last Admin: 03/15/17 08:43 Dose: 1 applic Collagenase (Santyl) 1 applic TOP DAILY [facility] Last Admin: 03/14/17 12:42 Dose: 1 applic Docusate Sodium (Colace) 200 mg PO [facility] Last Admin: 03/14/17 21:58 Dose: Not Given Home Med (Albiglutide [Tanzeum]) 30 mg SC TU [facility] Home Med (Vorapaxar Sulfate [Zontivity]) 2.08 mg PO DAILY [facility] Piperacillin Sod/Tazobactam (Sod 2.25 gm/ Sodium Chloride) 100 mls @ 100 mls/ hr IVPB Q8 [facility] Last Admin: 03/15/17 00:04 Dose: 100 mls/hr Vancomycin HCl 500 mg/ Sodium (Chloride) 100 mls @ 100 mls/hr IVPB DAILY [facility] Last Admin: 03/14/17 09:17 Dose: 100 mls/hr Insulin Detemir (Levemir) 6 units SC [facility] Last Admin: 03/14/17 21:57 Dose: 6 units Insulin Human Regular (Humulin R) 0 [facility] PRN Reason: Protocol Last Admin: 03/15/17 06:49 Dose: 2 unit Megestrol Acetate (Megace) 400 mg PO DAILY [facility] Last Admin: 03/15/17 08:42 Dose: 400 mg Ondansetron HCl (Zofran Tab) 4 mg PO Q8H PRN PRN Reason: Nausea/Vomiting Oxycodone/Acetaminophen (Percocet 5/325 Mg Tab) 1 tab PO Q6 PRN PRN Reason: Pain, severe (8-10) Stop: 03/16/17 13:41 Last Admin: 03/14/17 22:02 Dose: 1 tab Pantoprazole Sodium (Protonix Ec Tab) 40 mg PO DAILY [facility] Last Admin: 03/15/17 08:41 Dose: 40 mg Saccharomyces Boulardii (Florastor) 250 mg PO BID [facility] Last Admin: 03/15/17 08:41 Dose: 250 mg Sevelamer HCl (Renagel) 2,400 mg PO TID [facility] Last Admin: 03/15/17 08:41 Dose: 2,400 mg Sitagliptin Phosphate (Januvia) 25 mg PO DAILY [facility] Last Admin: 03/15/17 08:42 Dose: 25 mg Vitamin B Complex/Vit C/Folic Acid (Nephro-Niko) 1 tab PO DAILY [facility] Last Admin: 03/15/17 08:42 Dose: 1 tab - Labs Labs: 03/14/17 05:00 03/13/17 09:30 PT 16.3 Seconds (9.8-13.1) H 03/15/17 05:10 INR 1.4 (0.9-1.2) H 03/15/17 05:10 APTT 30.7 Seconds (25.6-37.1) 03/11/17 04:59 - Constitutional Appears: Well, Non-toxic, No Acute Distress - Extremities Exam Additional comments: Right lower extremity focused exam: VASC: DP pulse faintly palpable, PT pulses are palpable 1/4, 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 no active drainage, no malodor, no erythema noted, moderate tere-wound maceration noted to skin surrounding incision site which also shoes islands of fibrosis, De-roofed bullae site noted on the plantar medial arch with a necro- fibrotic base. The bullae site has an opening which tracks deep and shows a tendon, bullae base is absent and minor active drainage with minimal purulence, however underlying fluctuance noted. Superficial wound noted on the dorsum of the ankle which shows granular base with lateral minimal necrosis. NEURO: protective sensation is grossly sensation intact ORTHO: No pain on palpation noted to surgical site. pain present when dismissing drainage from the plantar medial arch on previously de-roofed bullae - Neurological Exam Neurological Exam: Alert, Awake, Oriented x3 - Psychiatric Exam Psychiatric exam: Normal Affect, Normal Mood Assessment and Plan - Assessment and Plan (Free Text) Assessment: 76 year old male with complicated Chance grade 4 ulceration, 3 weeks s/p right 2nd digit amputation; secondary to diabetes and PAD Plan: Pt evaluated and chart reviewed Pt discussed in details with attending Dr. Lebron Labs, and vitals reviewed. Afebrile, WBC @ 9.7 yesterday, down from 14.2 Cultures taken - (Final): Serraia Marcescens, Stenotrophomonas Maltophilia Dressing applied using santyl, DSD, Kerlix in the interspace and DSD and Kerlix on the anterior ankle and plantar bullae Dr. Ferris following patient closely: -with the combination of PAD and low CO from cardiomyopathy along with his other co-morbidities, it is best to leave the foot alone as long as it is viable, even if cyanotic. Pt may not be capable enough to survive a major surgery. He will consider a BKA if that is mandated. Continue IV abx per primary provider. Podiatry to continue to follow pt while in-house.
[2017-03-15] MEDS ORDERED: Iron Sucrose 100 mg/5 ml Inj IVP ONE (09:30)
[2017-03-15] MEDS: Oxycodone/Acetaminophen 5/325 mg Tab PO PRN ×2 (10:13→23:34)
[2017-03-15] MEDS: EPOETIN ALFA 10,000 UNIT/ML ML IV SCH (10:51)
[2017-03-15] MEDS: Santyl Collagenase OINTMENT TOP SCH (10:52)
--- NOTE | 2017-03-15 11:00 | CP.PCM.PN ---
Subjective - Date & Time of Evaluation Date of Evaluation: 03/15/17 Time of Evaluation: 10:58 - Subjective Subjective: he was seen on HD earlier tolerating well vital noted good UF about 1500 cc k bath 2 meq Objective - Vital Signs/Intake and Output Vital Signs (last 24 hours): Temp Pulse Resp BP Pulse Ox 98.2 F 83 18 102/57 L 100 03/15/17 08:19 03/15/17 08:19 03/15/17 08:19 03/15/17 08:19 03/15/17 08:19 Intake and Output: 03/15/17 03/15/17 06:59 18:59 Intake Total 300 Balance 300 - Medications Medications: Current Medications Acetaminophen (Tylenol 325mg Tab) 650 mg PO Q4H PRN PRN Reason: Pain, Mild (1-3) Last Admin: 03/13/17 11:00 Dose: 650 mg Atorvastatin Calcium (Lipitor) 10 mg PO [facility] Last Admin: 03/14/17 21:56 Dose: 10 mg Cadexomer Iodine (Iodosorb) 1 applic TOP DAILY [facility] Last Admin: 03/15/17 08:43 Dose: 1 applic Collagenase (Santyl) 1 applic TOP DAILY [facility] Last Admin: 03/15/17 10:52 Dose: 1 applic Docusate Sodium (Colace) 200 mg PO [facility] Last Admin: 03/14/17 21:58 Dose: Not Given Epoetin Avery (Procrit) 10,000 unit IV [facility] [place] Last Admin: 03/15/17 10:51 Dose: 10,000 unit Home Med (Albiglutide [Tanzeum]) 30 mg SC TU [facility] Home Med (Vorapaxar Sulfate [Zontivity]) 2.08 mg PO DAILY [facility] Piperacillin Sod/Tazobactam (Sod 2.25 gm/ Sodium Chloride) 100 mls @ 100 mls/ hr IVPB Q8 [facility] Last Admin: 03/15/17 00:04 Dose: 100 mls/hr Vancomycin HCl 500 mg/ Sodium (Chloride) 100 mls @ 100 mls/hr IVPB DAILY [facility] Last Admin: 03/14/17 09:17 Dose: 100 mls/hr Iron Sucrose 100 mg/ Sodium (Chloride) 105 mls @ 105 mls/hr IV MWF [facility] Insulin Detemir (Levemir) 6 units SC [facility] Last Admin: 03/14/17 21:57 Dose: 6 units Insulin Human Regular (Humulin R) 0 units SC ACHS [facility] PRN Reason: Protocol Last Admin: 03/15/17 06:49 Dose: 2 unit Megestrol Acetate (Megace) 400 mg PO DAILY [facility] Last Admin: 03/15/17 08:42 Dose: 400 mg Ondansetron HCl (Zofran Tab) 4 mg PO Q8H PRN PRN Reason: Nausea/Vomiting Oxycodone/Acetaminophen (Percocet 5/325 Mg Tab) 1 tab PO Q6 PRN PRN Reason: Pain, severe (8-10) Stop: 03/16/17 13:41 Last Admin: 03/15/17 10:13 Dose: 1 tab Pantoprazole Sodium (Protonix Ec Tab) 40 mg PO DAILY [facility] Last Admin: 03/15/17 08:41 Dose: 40 mg Saccharomyces Boulardii (Florastor) 250 mg PO BID [facility] Last Admin: 03/15/17 08:41 Dose: 250 mg Sevelamer HCl (Renagel) 2,400 mg PO TID [facility] Last Admin: 03/15/17 08:41 Dose: 2,400 mg Sitagliptin Phosphate (Januvia) 25 mg PO DAILY [facility] Last Admin: 03/15/17 08:42 Dose: 25 mg Vitamin B Complex/Vit C/Folic Acid (Nephro-Niko) 1 tab PO DAILY [facility] Last Admin: 03/15/17 08:42 Dose: 1 tab - Labs Labs: 03/14/17 05:00 03/13/17 09:30 PT 16.3 Seconds (9.8-13.1) H 03/15/17 05:10 INR 1.4 (0.9-1.2) H 03/15/17 05:10 APTT 30.7 Seconds (25.6-37.1) 03/11/17 04:59 - Constitutional Appears: No Acute Distress - ENT Exam ENT Exam: Mucous Membranes Moist - Respiratory Exam Respiratory Exam: Rhonchi. absent: Chest Wall Tenderness - Cardiovascular Exam Cardiovascular Exam: absent: JVD, Rubs - GI/Abdominal Exam GI & Abdominal Exam: Normal Bowel Sounds - Extremities Exam Extremities Exam: absent: Calf Tenderness - Back Exam Back Exam: absent: CVA tenderness (L), CVA tenderness (R) - Neurological Exam Neurological Exam: Alert Assessment and Plan (1) Altered mental status Status: Acute (2) ESRD needing dialysis Assessment & Plan: ESRD simeon. HD iron low give Venofer anemia as above add EPO cut vanco to dialysis days Status: Acute (3) Pneumonia Status: Acute
--- NOTE | 2017-03-15 12:46 | CP.PCM.PN ---
Subjective - Date & Time of Evaluation Date of Evaluation: 03/15/17 Time of Evaluation: 12:45 - Subjective Subjective: sob improved no chest pains/sob Objective - Vital Signs/Intake and Output Vital Signs (last 24 hours): Temp Pulse Resp BP Pulse Ox 98.2 F 83 18 102/57 L 100 03/15/17 08:19 03/15/17 08:19 03/15/17 08:19 03/15/17 08:19 03/15/17 08:19 Intake and Output: 03/15/17 03/15/17 06:59 18:59 Intake Total 300 Balance 300 - Medications Medications: Current Medications Acetaminophen (Tylenol 325mg Tab) 650 mg PO Q4H PRN PRN Reason: Pain, Mild (1-3) Last Admin: 03/13/17 11:00 Dose: 650 mg Atorvastatin Calcium (Lipitor) 10 mg PO [facility] Last Admin: 03/14/17 21:56 Dose: 10 mg Cadexomer Iodine (Iodosorb) 1 applic TOP DAILY [facility] Last Admin: 03/15/17 08:43 Dose: 1 applic Collagenase (Santyl) 1 applic TOP DAILY [facility] Last Admin: 03/15/17 10:52 Dose: 1 applic Docusate Sodium (Colace) 200 mg PO [facility] Last Admin: 03/14/17 21:58 Dose: Not Given Epoetin Avery (Procrit) 10,000 unit IV [facility] Last Admin: 03/15/17 10:51 Dose: 10,000 unit Home Med (Albiglutide [Tanzeum]) 30 mg SC TU [facility] Home Med (Vorapaxar Sulfate [Zontivity]) 2.08 mg PO DAILY [facility] Piperacillin Sod/Tazobactam (Sod 2.25 gm/ Sodium Chloride) 100 mls @ 100 mls/ hr IVPB Q8 [facility] Last Admin: 03/15/17 12:27 Dose: 100 mls/hr Iron Sucrose 100 mg/ Sodium (Chloride) 105 mls @ 105 mls/hr IV MWF [facility] Last Admin: 03/15/17 12:31 Dose: 105 mls/hr Vancomycin HCl 500 mg/ Sodium (Chloride) 100 mls @ 100 mls/hr IVPB MWF [facility] Insulin Detemir (Levemir) 6 units SC [facility] Last Admin: 03/14/17 21:57 Dose: 6 units Insulin Human Regular (Humulin R) 0 units SC ACHS [facility] PRN Reason: Protocol Last Admin: 03/15/17 12:32 Dose: 4 units Megestrol Acetate (Megace) 400 mg PO DAILY [facility] Last Admin: 03/15/17 08:42 Dose: 400 mg Ondansetron HCl (Zofran Tab) 4 mg PO Q8H PRN PRN Reason: Nausea/Vomiting Oxycodone/Acetaminophen (Percocet 5/325 Mg Tab) 1 tab PO Q6 PRN PRN Reason: Pain, severe (8-10) Stop: 03/16/17 13:41 Last Admin: 03/15/17 10:13 Dose: 1 tab Pantoprazole Sodium (Protonix Ec Tab) 40 mg PO DAILY [facility] Last Admin: 03/15/17 08:41 Dose: 40 mg Saccharomyces Boulardii (Florastor) 250 mg PO BID [facility] Last Admin: 03/15/17 08:41 Dose: 250 mg Sevelamer HCl (Renagel) 2,400 mg PO TID [facility] Last Admin: 03/15/17 12:33 Dose: 2,400 mg Sitagliptin Phosphate (Januvia) 25 mg PO DAILY [facility] Last Admin: 03/15/17 08:42 Dose: 25 mg Vitamin B Complex/Vit C/Folic Acid (Nephro-Niko) 1 tab PO DAILY [facility] Last Admin: 03/15/17 08:42 Dose: 1 tab - Labs Labs: 03/14/17 05:00 03/13/17 09:30 PT 16.3 Seconds (9.8-13.1) H 03/15/17 05:10 INR 1.4 (0.9-1.2) H 03/15/17 05:10 APTT 30.7 Seconds (25.6-37.1) 03/11/17 04:59 - Constitutional Appears: No Acute Distress, Chronically Ill - Head Exam Head Exam: ATRAUMATIC, NORMAL INSPECTION, NORMOCEPHALIC - Eye Exam Eye Exam: EOMI, Normal appearance, PERRL Pupil Exam: NORMAL ACCOMODATION, PERRL - ENT Exam ENT Exam: Mucous Membranes Moist, Normal Exam - Neck Exam Neck Exam: Full ROM, Normal Inspection. absent: Lymphadenopathy - Respiratory Exam Respiratory Exam: Decreased Breath Sounds, NORMAL BREATHING PATTERN - Cardiovascular Exam Cardiovascular Exam: REGULAR RHYTHM, +S1, +S2. absent: Murmur - GI/Abdominal Exam GI & Abdominal Exam: Soft, Normal Bowel Sounds. absent: Tenderness - Rectal Exam Rectal Exam: NORMAL INSPECTION - Extremities Exam Extremities Exam: absent: Joint Swelling, Pedal Edema - Back Exam Back Exam: NORMAL INSPECTION - Neurological Exam Neurological Exam: Alert, Awake, CN II-XII Intact, Oriented x3 - Psychiatric Exam Psychiatric exam: Normal Affect, Normal Mood - Skin Skin Exam: Dry, Intact, Normal Color, Warm Assessment and Plan - Assessment and Plan (Free Text) Assessment: esrd pleural effusion Plan: thoracenteses planned for today--therapeutic and symptom relief
--- NOTE | 2017-03-15 13:04 | CP.PCM.PN ---
Subjective - Date & Time of Evaluation Date of Evaluation: 03/15/17 Time of Evaluation: 11:30 - Subjective Subjective: NO CHEST PAIN BREATHING BETTER Objective - Vital Signs/Intake and Output Vital Signs (last 24 hours): Temp Pulse Resp BP Pulse Ox 98.2 F 83 18 102/57 L 100 03/15/17 08:19 03/15/17 08:19 03/15/17 08:19 03/15/17 08:19 03/15/17 08:19 Intake and Output: 03/15/17 03/15/17 06:59 18:59 Intake Total 300 Balance 300 - Medications Medications: Current Medications Acetaminophen (Tylenol 325mg Tab) 650 mg PO Q4H PRN PRN Reason: Pain, Mild (1-3) Last Admin: 03/13/17 11:00 Dose: 650 mg Atorvastatin Calcium (Lipitor) 10 mg PO [facility] Last Admin: 03/14/17 21:56 Dose: 10 mg Cadexomer Iodine (Iodosorb) 1 applic TOP DAILY [facility] Last Admin: 03/15/17 08:43 Dose: 1 applic Collagenase (Santyl) 1 applic TOP DAILY [facility] Last Admin: 03/15/17 10:52 Dose: 1 applic Docusate Sodium (Colace) 200 mg PO [facility] Last Admin: 03/14/17 21:58 Dose: Not Given Epoetin Avery (Procrit) 10,000 unit IV [facility] [place] Last Admin: 03/15/17 10:51 Dose: 10,000 unit Home Med (Albiglutide [Tanzeum]) 30 mg SC TU [facility] Home Med (Vorapaxar Sulfate [Zontivity]) 2.08 mg PO DAILY [facility] Piperacillin Sod/Tazobactam (Sod 2.25 gm/ Sodium Chloride) 100 mls @ 100 mls/ hr IVPB Q8 [facility] Last Admin: 03/15/17 12:27 Dose: 100 mls/hr Iron Sucrose 100 mg/ Sodium (Chloride) 105 mls @ 105 mls/hr IV MWF [facility] Last Admin: 03/15/17 12:31 Dose: 105 mls/hr Vancomycin HCl 500 mg/ Sodium (Chloride) 100 mls @ 100 mls/hr IVPB MWF [facility] Insulin Detemir (Levemir) 6 units SC [facility] Last Admin: 03/14/17 21:57 Dose: 6 units Insulin Human Regular (Humulin R) 0 units SC ACHS [facility] PRN Reason: Protocol Last Admin: 03/15/17 12:32 Dose: 4 units Megestrol Acetate (Megace) 400 mg PO DAILY [facility] Last Admin: 03/15/17 08:42 Dose: 400 mg Ondansetron HCl (Zofran Tab) 4 mg PO Q8H PRN PRN Reason: Nausea/Vomiting Oxycodone/Acetaminophen (Percocet 5/325 Mg Tab) 1 tab PO Q6 PRN PRN Reason: Pain, severe (8-10) Stop: 03/16/17 13:41 Last Admin: 03/15/17 10:13 Dose: 1 tab Pantoprazole Sodium (Protonix Ec Tab) 40 mg PO DAILY [facility] Last Admin: 03/15/17 08:41 Dose: 40 mg Saccharomyces Boulardii (Florastor) 250 mg PO BID [facility] Last Admin: 03/15/17 08:41 Dose: 250 mg Sevelamer HCl (Renagel) 2,400 mg PO TID [facility] Last Admin: 03/15/17 12:33 Dose: 2,400 mg Sitagliptin Phosphate (Januvia) 25 mg PO DAILY [facility] Last Admin: 03/15/17 08:42 Dose: 25 mg Vitamin B Complex/Vit C/Folic Acid (Nephro-Niko) 1 tab PO DAILY [facility] Last Admin: 03/15/17 08:42 Dose: 1 tab - Labs Labs: 03/14/17 05:00 03/13/17 09:30 PT 16.3 Seconds (9.8-13.1) H 03/15/17 05:10 INR 1.4 (0.9-1.2) H 03/15/17 05:10 APTT 30.7 Seconds (25.6-37.1) 03/11/17 04:59 - Respiratory Exam Respiratory Exam: Decreased Breath Sounds - Cardiovascular Exam Cardiovascular Exam: REGULAR RHYTHM, +S1, +S2 - Extremities Exam Additional comments: RIGHE FOOT CYANOTIC BUT WARM - Additional Findings Additional findings: [employer] VVI PACING Assessment and Plan - Assessment and Plan (Free Text) Assessment: CAD PNEUMONIA PAD HYPERTENSION DM CRF ON HD Plan: CONTINUE IV ANTIBIOTICS AND LIPITOR ON HD NOW FOR RIGHT THORACENTESIS AFTER HD WILL RESUME ASPIRIN AND CLOPIDOGREL AFTER THORACENTESIS
--- NOTE | 2017-03-15 14:50 | CP.PCM.PN ---
<Todd Patrick - Last Filed: 03/15/17 14:58> Subjective - Date & Time of Evaluation Date of Evaluation: 03/15/17 Time of Evaluation: 11:00 - Subjective Subjective: pt seen and examined at bedside this morning. No acute events overnight. Pt lying in bed comfortably, NAD. Currently undergoing hemodialysis. No new complaints. Reports improvement in SOB. OOB/ambulating with assistance. Denies fever/chills, headaches, changes in vision, CP/SOB/palpitations, N/V/D/C, urinary symptoms. Objective - Vital Signs/Intake and Output Vital Signs (last 24 hours): Temp Pulse Resp BP Pulse Ox 98.2 F 83 18 102/57 L 100 03/15/17 08:19 03/15/17 08:19 03/15/17 08:19 03/15/17 08:19 03/15/17 08:19 Intake and Output: 03/15/17 03/15/17 06:59 18:59 Intake Total 300 Balance 300 - Medications Medications: Current Medications Acetaminophen (Tylenol 325mg Tab) 650 mg PO Q4H PRN PRN Reason: Pain, Mild (1-3) Last Admin: 03/13/17 11:00 Dose: 650 mg Atorvastatin Calcium (Lipitor) 10 mg PO HS [facility] Last Admin: 03/14/17 21:56 Dose: 10 mg Cadexomer Iodine (Iodosorb) 1 applic TOP DAILY [facility] Last Admin: 03/15/17 08:43 Dose: 1 applic Collagenase (Santyl) 1 applic TOP DAILY [facility] Last Admin: 03/15/17 10:52 Dose: 1 applic Docusate Sodium (Colace) 200 mg PO HS [facility] Last Admin: 03/14/17 21:58 Dose: Not Given Epoetin Avery (Procrit) 10,000 unit IV MWF [facility] Last Admin: 03/15/17 10:51 Dose: 10,000 unit Home Med (Albiglutide [Tanzeum]) 30 mg SC TU [facility] Home Med (Vorapaxar Sulfate [Zontivity]) 2.08 mg PO DAILY [facility] Piperacillin Sod/Tazobactam (Sod 2.25 gm/ Sodium Chloride) 100 mls @ 100 mls/ hr IVPB Q8 [facility] Last Admin: 03/15/17 12:27 Dose: 100 mls/hr Iron Sucrose 100 mg/ Sodium (Chloride) 105 mls @ 105 mls/hr IV MWF [facility] Last Admin: 03/15/17 12:31 Dose: 105 mls/hr Vancomycin HCl 500 mg/ Sodium (Chloride) 100 mls @ 100 mls/hr IVPB F [facility] Insulin Detemir (Levemir) 6 units SC HS [facility] Last Admin: 03/14/17 21:57 Dose: 6 units Insulin Human Regular (Humulin R) 0 units SC ACHS [facility] PRN Reason: Protocol Last Admin: 03/15/17 12:32 Dose: 4 units Megestrol Acetate (Megace) 400 mg PO DAILY [facility] Last Admin: 03/15/17 08:42 Dose: 400 mg Ondansetron HCl (Zofran Tab) 4 mg PO Q8H PRN PRN Reason: Nausea/Vomiting Oxycodone/Acetaminophen (Percocet 5/325 Mg Tab) 1 tab PO Q6 PRN PRN Reason: Pain, severe (8-10) Stop: 03/16/17 13:41 Last Admin: 03/15/17 10:13 Dose: 1 tab Pantoprazole Sodium (Protonix Ec Tab) 40 mg PO DAILY [facility] Last Admin: 03/15/17 08:41 Dose: 40 mg Saccharomyces Boulardii (Florastor) 250 mg PO BID [facility] Last Admin: 03/15/17 08:41 Dose: 250 mg Sevelamer HCl (Renagel) 2,400 mg PO TID [facility] Last Admin: 03/15/17 12:33 Dose: 2,400 mg Sitagliptin Phosphate (Januvia) 25 mg PO DAILY [facility] Last Admin: 03/15/17 08:42 Dose: 25 mg Vitamin B Complex/Vit C/Folic Acid (Nephro-Niko) 1 tab PO DAILY [facility] Last Admin: 03/15/17 08:42 Dose: 1 tab - Labs Labs: 03/14/17 05:00 03/13/17 09:30 PT 16.3 Seconds (9.8-13.1) H 03/15/17 05:10 INR 1.4 (0.9-1.2) H 03/15/17 05:10 APTT 30.7 Seconds (25.6-37.1) 03/11/17 04:59 - Constitutional Appears: Non-toxic, No Acute Distress - ENT Exam ENT Exam: Mucous Membranes Moist - Respiratory Exam Respiratory Exam: Decreased Breath Sounds, Rales, NORMAL BREATHING PATTERN. absent: Accessory Muscle Use, Rhonchi, Wheezes, Respiratory Distress - Cardiovascular Exam Cardiovascular Exam: REGULAR RHYTHM, RRR, +S1, +S2. absent: Gallop, JVD, Rubs, Murmur - GI/Abdominal Exam GI & Abdominal Exam: Soft, Normal Bowel Sounds. absent: Firm, Guarding, Rigid, Tenderness - Extremities Exam Additional comments: right foot s/p 2nd digit amputation. Wound dehiscence. dorsal aspect of right foot with superficial wound plantar aspect of right with with wound extending down to tendon nontender, no erythema, no discharge, nonpalpable DP pulse sensation grossly intact - Neurological Exam Neurological Exam: Alert, Awake, CN II-XII Intact - Psychiatric Exam Psychiatric exam: Normal Affect, Normal Mood Assessment and Plan (1) Pleural effusion Assessment & Plan: pt to go for thoracentesis today. -will f/u pleural fluid labs -currently on IV Zosyn 2.25gm -monitor vitals Status: Acute (2) ESRD needing dialysis Assessment & Plan: currently in the process of hemodialysis f/u labs in the am Status: Acute (3) Right foot ulcer Assessment & Plan: currently being followed by podiatry and interventional cardio poor healing likely due to hx of poor ventricular output will continue to follow for potential BKA if no improvement. LE Duplex: pending Status: Chronic (4) Shortness of breath at rest Status: Resolved <Rocco Huff - Last Filed: 03/18/17 10:20> Objective - Vital Signs/Intake and Output Vital Signs (last 24 hours): Temp Pulse Resp BP Pulse Ox 98.7 F 97 H 20 121/51 L 96 03/18/17 08:00 03/18/17 08:00 03/18/17 08:00 03/18/17 08:00 03/18/17 08:00 Intake and Output: 03/18/17 03/18/17 06:59 18:59 Intake Total 300 Balance 300 - Medications Medications: Current Medications Acetaminophen (Tylenol 325mg Tab) 650 mg PO Q4H PRN PRN Reason: Pain, Mild (1-3) Last Admin: 03/16/17 21:30 Dose: 650 mg Atorvastatin Calcium (Lipitor) 10 mg PO HS [facility] Last Admin: 03/17/17 21:43 Dose: 10 mg Cadexomer Iodine (Iodosorb) 1 applic TOP DAILY [facility] Last Admin: 03/18/17 08:43 Dose: 1 applic Collagenase (Santyl) 1 applic TOP DAILY [facility] Last Admin: 03/18/17 08:40 Dose: 1 applic Docusate Sodium (Colace) 200 mg PO [facility] Last Admin: 03/17/17 21:42 Dose: Not Given Epoetin Avery (Procrit) 10,000 unit IV [facility] [place] Last Admin: 03/15/17 10:51 Dose: 10,000 unit Home Med (Albiglutide [Tanzeum]) 30 mg [place] [facility] [place] Med (Vorapaxar Sulfate [Zontivity]) 2.08 mg PO DAILY [facility] Iron Sucrose 100 mg/ Sodium (Chloride) 105 mls @ 105 mls/hr IV [facility] [place] Last Admin: 03/15/17 12:31 Dose: 105 mls/hr Vancomycin HCl 500 mg/ Sodium (Chloride) 100 mls @ 100 mls/hr IVPB [facility] Insulin Detemir (Levemir) 6 units SC [facility] Last Admin: 03/17/17 21:43 Dose: 6 units Insulin Human Regular (Humulin R) 0 units SC [facility] PRN Reason: Protocol Last Admin: 03/18/17 06:31 Dose: 2 units Megestrol Acetate (Megace) 400 mg PO DAILY [facility] Last Admin: 03/18/17 08:41 Dose: 400 mg Ondansetron HCl (Zofran Tab) 4 mg PO Q8H PRN PRN Reason: Nausea/Vomiting Oxycodone/Acetaminophen (Percocet 5/325 Mg Tab) 1 tab PO Q6 PRN PRN Reason: Pain, severe (8-10) Stop: 03/21/17 05:54 Last Admin: 03/18/17 08:39 Dose: 1 tab Pantoprazole Sodium (Protonix Ec Tab) 40 mg PO DAILY [facility] Last Admin: 03/18/17 08:41 Dose: 40 mg Saccharomyces Boulardii (Florastor) 250 mg PO BID [facility] Last Admin: 03/18/17 08:41 Dose: 250 mg Sevelamer HCl (Renagel) 2,400 mg PO TID [facility] Last Admin: 03/18/17 08:40 Dose: 2,400 mg Sitagliptin Phosphate (Januvia) 25 mg PO DAILY [facility] Last Admin: 03/18/17 08:39 Dose: 25 mg Vitamin B Complex/Vit C/Folic Acid (Nephro-Niko) 1 tab PO DAILY [facility] Last Admin: 03/18/17 08:42 Dose: 1 tab - Labs Labs: 03/14/17 05:00 03/13/17 09:30 PT 16.3 Seconds (9.8-13.1) H 03/15/17 05:10 INR 1.4 (0.9-1.2) H 03/15/17 05:10 APTT 30.7 Seconds (25.6-37.1) 03/11/17 04:59 Assessment and Plan (1) Altered mental status Status: Acute (2) Pleural effusion Status: Acute (3) Pneumonia Status: Acute (4) Shortness of breath Status: Acute (5) CHF (congestive heart failure) Status: Chronic - Assessment and Plan (Free Text) Plan: I was present duirtng evaluation and discussed with Dr Patrick re plan of care and mgt. Rocco Huff M.D.
[2017-03-15] MEDS: Insulin Detemir 100 Units/ml Inj SC SCH (22:01)
[2017-03-16] MEDS: Insulin Regular 100 units/ml SC SCH ×5 (06:51→21:25)
[2017-03-16] MEDS: Santyl Collagenase OINTMENT TOP SCH (08:25)
[2017-03-16] MEDS: Multivitamin Vitamin B Complex (Nephro-Vite) Tab PO SCH (08:26)
[2017-03-16] MEDS: Pantoprazole 40 mg EC Tab PO SCH (08:29)
[2017-03-16] MEDS: Saccharomyces Boulardi 250 mg Cap PO SCH ×2 (08:30→16:18)
[2017-03-16] MEDS: Iodine 0.9% GEL TOP SCH (08:31)
[2017-03-16] MEDS: Megestrol Acetate 40 mg/ml Cup PO SCH (08:31)
--- NOTE | 2017-03-16 10:32 | CP.PCM.PN ---
Subjective - Date & Time of Evaluation Date of Evaluation: 03/16/17 Time of Evaluation: 11:00 - Subjective Subjective: 76 y/o male seen at bedside this morning 3.5 weeks s/p right 2nd digit amputation (DOS 02/16/17). Pt seen resting in bed at time of visit, appears awake and alert and in NAD. Pt does complain of some mild pain to the right foot today. Also complains of some shortness of breath. Denies f/n/v/c/cp at this time. Denies any other complaints today. Objective - Vital Signs/Intake and Output Vital Signs (last 24 hours): Temp Pulse Resp BP Pulse Ox 97.7 F 88 18 106/55 L 99 03/16/17 08:00 03/16/17 08:00 03/16/17 08:00 03/16/17 08:00 03/16/17 08:00 Intake and Output: 03/16/17 03/16/17 06:59 18:59 Intake Total 1140 Balance 1140 - Medications Medications: Current Medications Acetaminophen (Tylenol 325mg Tab) 650 mg PO Q4H PRN PRN Reason: Pain, Mild (1-3) Last Admin: 03/13/17 11:00 Dose: 650 mg Atorvastatin Calcium (Lipitor) 10 mg PO HS [facility] Last Admin: 03/15/17 22:02 Dose: 10 mg Cadexomer Iodine (Iodosorb) 1 applic TOP DAILY [facility] Last Admin: 03/16/17 08:31 Dose: 1 applic Collagenase (Santyl) 1 applic TOP DAILY [facility] Last Admin: 03/16/17 08:25 Dose: 1 applic Docusate Sodium (Colace) 200 mg PO HS [facility] Last Admin: 03/15/17 22:01 Dose: Not Given Epoetin Avery (Procrit) 10,000 unit IV MWF [facility] Last Admin: 03/15/17 10:51 Dose: 10,000 unit Home Med (Albiglutide [Tanzeum]) 30 mg SC TU [facility] Home Med (Vorapaxar Sulfate [Zontivity]) 2.08 mg PO DAILY [facility] Piperacillin Sod/Tazobactam (Sod 2.25 gm/ Sodium Chloride) 100 mls @ 100 mls/ hr IVPB Q8 [facility] Last Admin: 03/16/17 08:36 Dose: 100 mls/hr Iron Sucrose 100 mg/ Sodium (Chloride) 105 mls @ 105 mls/hr IV MWF [facility] Last Admin: 03/15/17 12:31 Dose: 105 mls/hr Vancomycin HCl 500 mg/ Sodium (Chloride) 100 mls @ 100 mls/[place] [facility] [place] Detemir (Levemir) 6 units SC HS [facility] Last Admin: 03/15/17 22:01 Dose: 6 units Insulin Human Regular (Humulin R) 0 units SC ACHS [facility] PRN Reason: Protocol Last Admin: 03/16/17 06:51 Dose: Not Given Megestrol Acetate (Megace) 400 mg PO DAILY [facility] Last Admin: 03/16/17 08:31 Dose: 400 mg Ondansetron HCl (Zofran Tab) 4 mg PO Q8H PRN PRN Reason: Nausea/Vomiting Oxycodone/Acetaminophen (Percocet 5/325 Mg Tab) 1 tab PO Q6 PRN PRN Reason: Pain, severe (8-10) Stop: 03/16/17 13:41 Last Admin: 03/15/17 23:34 Dose: 1 tab Pantoprazole Sodium (Protonix Ec Tab) 40 mg PO DAILY [facility] Last Admin: 03/16/17 08:29 Dose: 40 mg Saccharomyces Boulardii (Florastor) 250 mg PO BID [facility] Last Admin: 03/16/17 08:30 Dose: 250 mg Sevelamer HCl (Renagel) 2,400 mg PO TID [facility] Last Admin: 03/16/17 08:26 Dose: 2,400 mg Sitagliptin Phosphate (Januvia) 25 mg PO DAILY [facility] Last Admin: 03/16/17 08:29 Dose: 25 mg Vitamin B Complex/Vit C/Folic Acid (Nephro-Niko) 1 tab PO DAILY [facility] Last Admin: 03/16/17 08:26 Dose: 1 tab - Labs Labs: 03/14/17 05:00 03/13/17 09:30 PT 16.3 Seconds (9.8-13.1) H 03/15/17 05:10 INR 1.4 (0.9-1.2) H 03/15/17 05:10 APTT 30.7 Seconds (25.6-37.1) 03/11/17 04:59 - Constitutional Appears: Non-toxic, No Acute Distress - Extremities Exam Extremities Exam: absent: Calf Tenderness Additional comments: Right lower extremity focused exam: VASC: DP pulse faintly palpable, PT pulses are palpable 1/4, WAREHOUSE DIRECTOR: < 3 sec x 4, Temperature gradient: cool to cool, no pitting or non pitting edema noted DERM: surgical site shows dehiscence and proximal margin shows (+) probe-to- bone. no active drainage, no malodor, no erythema noted, moderate tere-wound maceration noted to skin surrounding incision site which also shoes islands of fibrosis, De-roofed bullae site noted on the plantar medial arch with a necro- fibrotic base. The bullae site has an opening which tracks deep and shows a tendon, bullae base is absent and minor active drainage with minimal purulence, however underlying fluctuance noted. Superficial wound noted on the dorsum of the ankle which shows granular base with lateral minimal necrosis. NEURO: protective sensation is grossly sensation intact ORTHO: tenderness noted on palpation of surgical site today. - Neurological Exam Neurological Exam: Alert, Awake - Psychiatric Exam Psychiatric exam: Normal Affect, Normal Mood Assessment and Plan - Assessment and Plan (Free Text) Assessment: 76 year old male w/ complicated Chance grade 4 ulceration, 3 weeks s/p right 2nd digit amputation 2/2 to diabetic neuropathy and PAD Plan: Pt S&E at bedside Plan discussed in detail with attending Dr. Lebron Chart, labs, and vitals reviewed: afebrile Foot wound cx: Serraia Marcescens, Stenotrophomonas Maltophilia Right foot cleansed and dressed with santyl, DSD Per Dr. Martinez recommendations no surgical intervention of lower ext at this time due to patient co-morbidities. Continue IV abx per primary Podiatry will continue to follow closely while pt is in house
[2017-03-16] MEDS: Oxycodone/Acetaminophen 5/325 mg Tab PO PRN (12:24)
--- NOTE | 2017-03-16 14:17 | CP.PCM.PN ---
Subjective - Date & Time of Evaluation Date of Evaluation: 03/16/17 Time of Evaluation: 13:00 - Subjective Subjective: NO CHEST PAIN BREATHING WELL AT PRESENT TIME MILD RIGHT FOOT PAIN Objective - Vital Signs/Intake and Output Vital Signs (last 24 hours): Temp Pulse Resp BP Pulse Ox 97.5 F L 68 18 116/52 L 98 03/16/17 12:00 03/16/17 12:00 03/16/17 12:00 03/16/17 12:00 03/16/17 12:00 Intake and Output: 03/16/17 03/16/17 06:59 18:59 Intake Total 1140 Balance 1140 - Medications Medications: Current Medications Acetaminophen (Tylenol 325mg Tab) 650 mg PO Q4H PRN PRN Reason: Pain, Mild (1-3) Last Admin: 03/13/17 11:00 Dose: 650 mg Atorvastatin Calcium (Lipitor) 10 mg PO [facility] Last Admin: 03/15/17 22:02 Dose: 10 mg Cadexomer Iodine (Iodosorb) 1 applic TOP DAILY [facility] Last Admin: 03/16/17 08:31 Dose: 1 applic Collagenase (Santyl) 1 applic TOP DAILY [facility] Last Admin: 03/16/17 08:25 Dose: 1 applic Docusate Sodium (Colace) 200 mg PO [facility] Last Admin: 03/15/17 22:01 Dose: Not Given Epoetin Avery (Procrit) 10,000 unit IV [facility] [place] Last Admin: 03/15/17 10:51 Dose: 10,000 unit Home Med (Albiglutide [Tanzeum]) 30 mg [facility] [place] Home Med (Vorapaxar Sulfate [Zontivity]) 2.08 mg PO DAILY [facility] Piperacillin Sod/Tazobactam (Sod 2.25 gm/ Sodium Chloride) 100 mls @ 100 mls/ hr IVPB Q8 [facility] Last Admin: 03/16/17 08:36 Dose: 100 mls/hr Iron Sucrose 100 mg/ Sodium (Chloride) 105 mls @ 105 mls/hr IV MWF [facility] Last Admin: 03/15/17 12:31 Dose: 105 mls/hr Vancomycin HCl 500 mg/ Sodium (Chloride) 100 mls @ 100 mls/hr IVPB [facility] [place] Insulin Detemir (Levemir) 6 units SC [facility] Last Admin: 03/15/17 22:01 Dose: 6 units Insulin Human Regular (Humulin R) 0 units SC ACHS [facility] PRN Reason: Protocol Last Admin: 03/16/17 12:06 Dose: 6 units Megestrol Acetate (Megace) 400 mg PO DAILY [facility] Last Admin: 03/16/17 08:31 Dose: 400 mg Ondansetron HCl (Zofran Tab) 4 mg PO Q8H PRN PRN Reason: Nausea/Vomiting Pantoprazole Sodium (Protonix Ec Tab) 40 mg PO DAILY [facility] Last Admin: 03/16/17 08:29 Dose: 40 mg Saccharomyces Boulardii (Florastor) 250 mg PO BID [facility] Last Admin: 03/16/17 08:30 Dose: 250 mg Sevelamer HCl (Renagel) 2,400 mg PO TID [facility] Last Admin: 03/16/17 12:07 Dose: 2,400 mg Sitagliptin Phosphate (Januvia) 25 mg PO DAILY [facility] Last Admin: 03/16/17 08:29 Dose: 25 mg Vitamin B Complex/Vit C/Folic Acid (Nephro-Niko) 1 tab PO DAILY [facility] Last Admin: 03/16/17 08:26 Dose: 1 tab - Labs Labs: 03/14/17 05:00 03/13/17 09:30 PT 16.3 Seconds (9.8-13.1) H 03/15/17 05:10 INR 1.4 (0.9-1.2) H 03/15/17 05:10 APTT 30.7 Seconds (25.6-37.1) 03/11/17 04:59 - Respiratory Exam Respiratory Exam: Decreased Breath Sounds - Cardiovascular Exam Cardiovascular Exam: REGULAR RHYTHM, +S1, +S2 - Extremities Exam Additional comments: RIGHT FOOT IS WARM, SURGICALLY DRESSED - Additional Findings Additional findings: PAN PULLER VVI PACING DUPLEX SCAN PERFORMED BUT NO REPORT YET RT THORACENTESIS NOT DONE YET Assessment and Plan - Assessment and Plan (Free Text) Assessment: PNEUMONIA CAD WITH CARDIOMYOPATHY PAD CRF ON HD HYPERTENSION DM Plan: CONTINUE ANTIBIOTICS AND ATORVASTATIN ASPIRIN AND CLOPIDOGREL ON HOLD FOR THORACENTESIS BP IS STILL LOW TO LOW NORMAL SO CARVEDILOL WILL STILL BE HELD WOUND CARE PER PODIATRY
[2017-03-16] MEDS: Insulin Detemir 100 Units/ml Inj SC SCH (21:24)
[2017-03-17] MEDS: Insulin Regular 100 units/ml SC SCH ×4 (06:39→22:50)
[2017-03-17] MEDS: Megestrol Acetate 40 mg/ml Cup PO SCH (08:57)
[2017-03-17] MEDS: Santyl Collagenase OINTMENT TOP SCH (08:57)
[2017-03-17] MEDS: Pantoprazole 40 mg EC Tab PO SCH (08:57)
[2017-03-17] MEDS: Multivitamin Vitamin B Complex (Nephro-Vite) Tab PO SCH (08:58)
[2017-03-17] MEDS: Iodine 0.9% GEL TOP SCH (08:58)
[2017-03-17] MEDS: Saccharomyces Boulardi 250 mg Cap PO SCH ×2 (08:58→16:40)
--- NOTE | 2017-03-17 09:04 | CP.PCM.PN ---
Subjective - Date & Time of Evaluation Date of Evaluation: 03/17/17 Time of Evaluation: 09:20 - Subjective Subjective: 76 y/o male seen at bedside this morning 3.5 weeks s/p right 2nd digit amputation (DOS 02/16/17). Pt seen resting in bed at time of visit. Pt denies any acute events overnight. Does complain of persistent right foot pain, but does say pain medication is helping. Denies f/n/v/c/sob/cp at this time. Says breathing is somewhat improved today. Denies any other problems today. Objective - Vital Signs/Intake and Output Vital Signs (last 24 hours): Temp Pulse Resp BP Pulse Ox 98.4 F 94 H 20 127/58 L 95 03/17/17 05:00 03/17/17 05:00 03/17/17 05:00 03/17/17 05:00 03/17/17 05:00 Intake and Output: 03/17/17 03/17/17 06:59 18:59 Intake Total 600 Balance 600 - Medications Medications: Current Medications Acetaminophen (Tylenol 325mg Tab) 650 mg PO Q4H PRN PRN Reason: Pain, Mild (1-3) Last Admin: 03/16/17 21:30 Dose: 650 mg Atorvastatin Calcium (Lipitor) 10 mg PO [facility] Last Admin: 03/16/17 21:24 Dose: 10 mg Cadexomer Iodine (Iodosorb) 1 applic TOP DAILY [facility] Last Admin: 03/17/17 08:58 Dose: 1 applic Collagenase (Santyl) 1 applic TOP DAILY [facility] Last Admin: 03/17/17 08:57 Dose: 1 applic Docusate Sodium (Colace) 200 mg PO [facility] Last Admin: 03/16/17 21:25 Dose: Not Given Epoetin Avery (Procrit) 10,000 unit IV MWF [facility] Last Admin: 03/15/17 10:51 Dose: 10,000 unit Home Med (Albiglutide [Tanzeum]) 30 mg SC TU [facility] Home Med (Vorapaxar Sulfate [Zontivity]) 2.08 mg PO DAILY [facility] Iron Sucrose 100 mg/ Sodium (Chloride) 105 mls @ 105 mls/hr IV MWF [facility] Last Admin: 03/15/17 12:31 Dose: 105 mls/hr Vancomycin HCl 500 mg/ Sodium (Chloride) 100 mls @ 100 mls/hr IVPB MWF [facility] Insulin Detemir (Levemir) 6 units SC HS [facility] Last Admin: 03/16/17 21:24 Dose: 6 units Insulin Human Regular (Humulin R) 0 units SC ACHS [facility] PRN Reason: Protocol Last Admin: 03/17/17 06:39 Dose: 2 units Megestrol Acetate (Megace) 400 mg PO DAILY [facility] Last Admin: 03/17/17 08:57 Dose: 400 mg Ondansetron HCl (Zofran Tab) 4 mg PO Q8H PRN PRN Reason: Nausea/Vomiting Pantoprazole Sodium (Protonix Ec Tab) 40 mg PO DAILY [facility] Last Admin: 03/17/17 08:57 Dose: 40 mg Saccharomyces Boulardii (Florastor) 250 mg PO BID [facility] Last Admin: 03/17/17 08:58 Dose: 250 mg Sevelamer HCl (Renagel) 2,400 mg PO TID [facility] Last Admin: 03/17/17 08:57 Dose: 2,400 mg Sitagliptin Phosphate (Januvia) 25 mg PO DAILY [facility] Last Admin: 03/17/17 08:58 Dose: 25 mg Vitamin B Complex/Vit C/Folic Acid (Nephro-Niko) 1 tab PO DAILY [facility] Last Admin: 03/17/17 08:58 Dose: 1 tab - Labs Labs: 03/14/17 05:00 03/13/17 09:30 PT 16.3 Seconds (9.8-13.1) H 03/15/17 05:10 INR 1.4 (0.9-1.2) H 03/15/17 05:10 APTT 30.7 Seconds (25.6-37.1) 03/11/17 04:59 - Constitutional Appears: Non-toxic, No Acute Distress - Extremities Exam Extremities Exam: absent: Calf Tenderness Additional comments: Right lower extremity focused exam: VASC: DP pulse faintly palpable, PT pulses are palpable 1/4, ASSISTANT [employer] DEFENDER: < 3 sec x 4, Temperature gradient: cool to cool, no pitting or non pitting edema noted DERM: surgical site shows dehiscence and proximal margin shows (+) probe-to- bone. no active drainage, no malodor, no erythema noted, moderate tere-wound maceration noted to skin surrounding incision site which also shoes islands of fibrosis, De-roofed bullae site noted on the plantar medial arch with a necro- fibrotic base. The bullae site has an opening which tracks deep and shows a tendon, bullae base is absent and minor active drainage with minimal purulence, however underlying fluctuance noted. Superficial wound noted on the dorsum of the ankle which shows granular base with lateral minimal necrosis. NEURO: protective sensation is grossly sensation intact ORTHO: tenderness noted on palpation of surgical site today. - Neurological Exam Neurological Exam: Alert, Awake - Psychiatric Exam Psychiatric exam: Normal Affect, Normal Mood Assessment and Plan - Assessment and Plan (Free Text) Assessment: 76 year old male w/ complicated Chance grade 4 ulceration, 3 weeks s/p right 2nd digit amputation 2/2 to diabetic neuropathy and PAD Plan: Pt S&E at bedside Plan discussed in detail with attending Dr. Lebron Chart, labs, and vitals reviewed: afebrile Foot wound cx: Serraia Marcescens, Stenotrophomonas Maltophilia Right foot cleansed and dressed with santyl, DSD No surgical intervention at this time. Continue IV abx per primary Podiatry will continue to follow closely while pt is in house
[2017-03-17] MEDS: Insulin Detemir 100 Units/ml Inj SC SCH (21:43)
[2017-03-18] MEDS: Insulin Regular 100 units/ml SC SCH ×4 (06:31→22:36)
[2017-03-18] MEDS: Oxycodone/Acetaminophen 5/325 mg Tab PO PRN ×2 (08:39→16:57)
[2017-03-18] MEDS: Santyl Collagenase OINTMENT TOP SCH (08:40)
[2017-03-18] MEDS: Saccharomyces Boulardi 250 mg Cap PO SCH ×2 (08:41→17:01)
[2017-03-18] MEDS: Pantoprazole 40 mg EC Tab PO SCH (08:41)
[2017-03-18] MEDS: Megestrol Acetate 40 mg/ml Cup PO SCH (08:41)
[2017-03-18] MEDS: Multivitamin Vitamin B Complex (Nephro-Vite) Tab PO SCH (08:42)
[2017-03-18] MEDS: Iodine 0.9% GEL TOP SCH (08:43)
--- NOTE | 2017-03-18 09:13 | CP.PCM.PN ---
Subjective - Date & Time of Evaluation Date of Evaluation: 03/18/17 Time of Evaluation: 09:10 - Subjective Subjective: Patient and bed appeared to be not in acute distress and comfortable Hemodialysis starting now at the bedside No chest pain reported Appetite improving Objective - Vital Signs/Intake and Output Vital Signs (last 24 hours): Temp Pulse Resp BP Pulse Ox 98.7 F 97 H 20 121/51 L 96 03/18/17 08:00 03/18/17 08:00 03/18/17 08:00 03/18/17 08:00 03/18/17 08:00 Intake and Output: 03/18/17 03/18/17 06:59 18:59 Intake Total 300 Balance 300 - Medications Medications: Current Medications Acetaminophen (Tylenol 325mg Tab) 650 mg PO Q4H PRN PRN Reason: Pain, Mild (1-3) Last Admin: 03/16/17 21:30 Dose: 650 mg Atorvastatin Calcium (Lipitor) 10 mg PO [facility] Last Admin: 03/17/17 21:43 Dose: 10 mg Cadexomer Iodine (Iodosorb) 1 applic TOP DAILY [facility] Last Admin: 03/18/17 08:43 Dose: 1 applic Collagenase (Santyl) 1 applic TOP DAILY [facility] Last Admin: 03/18/17 08:40 Dose: 1 applic Docusate Sodium (Colace) 200 mg PO [facility] Last Admin: 03/17/17 21:42 Dose: Not Given Epoetin Avery (Procrit) 10,000 unit IV [facility] [place] Last Admin: 03/15/17 10:51 Dose: 10,000 unit Home Med (Albiglutide [Tanzeum]) [address] [facility] [place] Home Med (Vorapaxar Sulfate [Zontivity]) 2.08 mg PO DAILY [facility] Iron Sucrose 100 mg/ Sodium (Chloride) 105 mls @ 105 mls/hr IV [facility] [place] Last Admin: 03/15/17 12:31 Dose: 105 mls/hr Vancomycin HCl 500 mg/ Sodium (Chloride) 100 mls @ 100 mls/hr IVPB [facility] [place] Insulin Detemir (Levemir) 6 units SC [facility] Last Admin: 03/17/17 21:43 Dose: 6 units Insulin Human Regular (Humulin R) 0 units SC [facility] PRN Reason: Protocol Last Admin: 03/18/17 06:31 Dose: 2 units Megestrol Acetate (Megace) 400 mg PO DAILY [facility] Last Admin: 03/18/17 08:41 Dose: 400 mg Ondansetron HCl (Zofran Tab) 4 mg PO Q8H PRN PRN Reason: Nausea/Vomiting Oxycodone/Acetaminophen (Percocet 5/325 Mg Tab) 1 tab PO Q6 PRN PRN Reason: Pain, severe (8-10) Stop: 03/21/17 05:54 Last Admin: 03/18/17 08:39 Dose: 1 tab Pantoprazole Sodium (Protonix Ec Tab) 40 mg PO DAILY [facility] Last Admin: 03/18/17 08:41 Dose: 40 mg Saccharomyces Boulardii (Florastor) 250 mg PO BID [facility] Last Admin: 03/18/17 08:41 Dose: 250 mg Sevelamer HCl (Renagel) 2,400 mg PO TID [facility] Last Admin: 03/18/17 08:40 Dose: 2,400 mg Sitagliptin Phosphate (Januvia) 25 mg PO DAILY [facility] Last Admin: 03/18/17 08:39 Dose: 25 mg Vitamin B Complex/Vit C/Folic Acid (Nephro-Niko) 1 tab PO DAILY [facility] Last Admin: 03/18/17 08:42 Dose: 1 tab - Labs Labs: 03/14/17 05:00 03/13/17 09:30 PT 16.3 Seconds (9.8-13.1) H 03/15/17 05:10 INR 1.4 (0.9-1.2) H 03/15/17 05:10 APTT 30.7 Seconds (25.6-37.1) 03/11/17 04:59 - Constitutional Appears: No Acute Distress - ENT Exam ENT Exam: Mucous Membranes Moist - Respiratory Exam Respiratory Exam: absent: Chest Wall Tenderness Additional comments: decrease breath sound on the right - GI/Abdominal Exam GI & Abdominal Exam: Normal Bowel Sounds. absent: Guarding, Organomegaly - Extremities Exam Extremities Exam: absent: Calf Tenderness - Back Exam Back Exam: absent: CVA tenderness (L), CVA tenderness (R) - Neurological Exam Neurological Exam: Alert Assessment and Plan (1) Altered mental status Status: Acute (2) ESRD needing dialysis Assessment & Plan: End stage renal disease patient on dialysis now Ultrafiltration to be about 2000 mL as tolerated Potassium bath 2 mEq Sodium bath 138 Bicarbonate bath 34 Patient going for thoracocentesis although he was postponed until tomorrow so we will not be done the same day of dialysis Status: Acute (3) Pneumonia Status: Acute
--- NOTE | 2017-03-18 09:23 | CP.PCM.PN ---
Subjective - Date & Time of Evaluation Date of Evaluation: 03/18/17 Time of Evaluation: 09:23 - Subjective Subjective: DENIES CHEST PAINS/SOB Objective - Vital Signs/Intake and Output Vital Signs (last 24 hours): Temp Pulse Resp BP Pulse Ox 98.7 F 97 H 20 121/51 L 96 03/18/17 08:00 03/18/17 08:00 03/18/17 08:00 03/18/17 08:00 03/18/17 08:00 Intake and Output: 03/18/17 03/18/17 06:59 18:59 Intake Total 300 Balance 300 - Medications Medications: Current Medications Acetaminophen (Tylenol 325mg Tab) 650 mg PO Q4H PRN PRN Reason: Pain, Mild (1-3) Last Admin: 03/16/17 21:30 Dose: 650 mg Atorvastatin Calcium (Lipitor) 10 mg PO [facility] Last Admin: 03/17/17 21:43 Dose: 10 mg Cadexomer Iodine (Iodosorb) 1 applic TOP DAILY [facility] Last Admin: 03/18/17 08:43 Dose: 1 applic Collagenase (Santyl) 1 applic TOP DAILY [facility] Last Admin: 03/18/17 08:40 Dose: 1 applic Docusate Sodium (Colace) 200 mg PO [facility] Last Admin: 03/17/17 21:42 Dose: Not Given Epoetin Avery (Procrit) 10,[address] [facility] [place] Last Admin: 03/15/17 10:51 Dose: 10,000 unit Home Med (Albiglutide [Tanzeum]) [address] [facility] [place] Home Med (Vorapaxar Sulfate [Zontivity]) 2.08 mg PO DAILY [facility] Iron Sucrose 100 mg/ Sodium (Chloride) 105 mls @ 105 mls/hr IV [facility] [place] Last Admin: 03/15/17 12:31 Dose: 105 mls/hr Vancomycin HCl 500 mg/ Sodium (Chloride) 100 mls @ 100 mls/hr IVPB [facility] [place] Insulin Detemir (Levemir) 6 units SC [facility] Last Admin: 03/17/17 21:43 Dose: 6 units Insulin Human Regular (Humulin R) 0 units SC [facility] PRN Reason: Protocol Last Admin: 03/18/17 06:31 Dose: 2 units Megestrol Acetate (Megace) 400 mg PO DAILY [facility] Last Admin: 03/18/17 08:41 Dose: 400 mg Ondansetron HCl (Zofran Tab) 4 mg PO Q8H PRN PRN Reason: Nausea/Vomiting Oxycodone/Acetaminophen (Percocet 5/325 Mg Tab) 1 tab PO Q6 PRN PRN Reason: Pain, severe (8-10) Stop: 03/21/17 05:54 Last Admin: 03/18/17 08:39 Dose: 1 tab Pantoprazole Sodium (Protonix Ec Tab) 40 mg PO DAILY [facility] Last Admin: 03/18/17 08:41 Dose: 40 mg Saccharomyces Boulardii (Florastor) 250 mg PO BID [facility] Last Admin: 03/18/17 08:41 Dose: 250 mg Sevelamer HCl (Renagel) 2,400 mg PO TID [facility] Last Admin: 03/18/17 08:40 Dose: 2,400 mg Sitagliptin Phosphate (Januvia) 25 mg PO DAILY [facility] Last Admin: 03/18/17 08:39 Dose: 25 mg Vitamin B Complex/Vit C/Folic Acid (Nephro-Niko) 1 tab PO DAILY [facility] Last Admin: 03/18/17 08:42 Dose: 1 tab - Labs Labs: 03/14/17 05:00 03/13/17 09:30 PT 16.3 Seconds (9.8-13.1) H 03/15/17 05:10 INR 1.4 (0.9-1.2) H 03/15/17 05:10 APTT 30.7 Seconds (25.6-37.1) 03/11/17 04:59 - Constitutional Appears: No Acute Distress - Head Exam Head Exam: ATRAUMATIC, NORMAL INSPECTION, NORMOCEPHALIC - Eye Exam Eye Exam: EOMI, Normal appearance, PERRL Pupil Exam: NORMAL ACCOMODATION, PERRL - ENT Exam ENT Exam: Mucous Membranes Moist, Normal Exam - Neck Exam Neck Exam: Full ROM, Normal Inspection. absent: Lymphadenopathy - Respiratory Exam Respiratory Exam: Decreased Breath Sounds, Rales, NORMAL BREATHING PATTERN - Cardiovascular Exam Cardiovascular Exam: REGULAR RHYTHM, +S1, +S2. absent: Murmur - GI/Abdominal Exam GI & Abdominal Exam: Soft, Normal Bowel Sounds. absent: Tenderness - Rectal Exam Rectal Exam: NORMAL INSPECTION - Extremities Exam Extremities Exam: Full ROM, Normal Capillary Refill, Normal Inspection. absent : Joint Swelling, Pedal Edema - Back Exam Back Exam: NORMAL INSPECTION - Neurological Exam Neurological Exam: Alert, Awake, CN II-XII Intact, Normal Gait, Oriented x3 - Psychiatric Exam Psychiatric exam: Normal Affect, Normal Mood - Skin Skin Exam: Dry, Intact, Normal Color, Warm Assessment and Plan - Assessment and Plan (Free Text) Assessment: PLEURAL EFFUSION ESRD Plan: THORACENTESES ON HOLD BECAUSE OF NEED FOR HEMODIALYSIS WILL CONTINUE TO FOLLOW WITH YOU
--- NOTE | 2017-03-18 10:23 | CP.PCM.PN ---
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 Conservative measures on going. Patient was introduced the idea of possible amputation if wound and foot condition do not improved but refused and against the idea of amputation for now. Has no fever Objective - Vital Signs/Intake and Output Vital Signs (last 24 hours): Temp Pulse Resp BP Pulse Ox 98.7 F 97 H 20 121/51 L 96 03/18/17 08:00 03/18/17 08:00 03/18/17 08:00 03/18/17 08:00 03/18/17 08:00 Intake and Output: 03/18/17 03/18/17 06:59 18:59 Intake Total 300 Balance 300 - Medications Medications: Current Medications Acetaminophen (Tylenol 325mg Tab) 650 mg PO Q4H PRN PRN Reason: Pain, Mild (1-3) Last Admin: 03/16/17 21:30 Dose: 650 mg Atorvastatin Calcium (Lipitor) 10 mg PO [facility] Last Admin: 03/17/17 21:43 Dose: 10 mg Cadexomer Iodine (Iodosorb) 1 applic TOP DAILY [facility] Last Admin: 03/18/17 08:43 Dose: 1 applic Collagenase (Santyl) 1 applic TOP DAILY [facility] Last Admin: 03/18/17 08:40 Dose: 1 applic Docusate Sodium (Colace) 200 mg PO [facility] Last Admin: 03/17/17 21:42 Dose: Not Given Epoetin Avery (Procrit) 10,000 unit IV [facility] [place] Last Admin: 03/15/17 10:51 Dose: 10,000 unit Home Med (Albiglutide [Tanzeum]) 30 mg [place] [facility] [place] [facility] [place] Med (Vorapaxar Sulfate [Zontivity]) 2.08 mg PO DAILY [facility] Iron Sucrose 100 mg/ Sodium (Chloride) 105 mls @ 105 mls/hr IV [facility] [place] Last Admin: 03/15/17 12:31 Dose: 105 mls/hr Vancomycin HCl 500 mg/ Sodium (Chloride) 100 mls @ 100 mls/hr IVPB [facility] [place] Insulin Detemir (Levemir) 6 units SC [facility] Last Admin: 03/17/17 21:43 Dose: 6 units Insulin Human Regular (Humulin R) 0 units SC [facility] PRN Reason: Protocol Last Admin: 03/18/17 06:31 Dose: 2 units Megestrol Acetate (Megace) 400 mg PO DAILY [facility] Last Admin: 03/18/17 08:41 Dose: 400 mg Ondansetron HCl (Zofran Tab) 4 mg PO Q8H PRN PRN Reason: Nausea/Vomiting Oxycodone/Acetaminophen (Percocet 5/325 Mg Tab) 1 tab PO Q6 PRN PRN Reason: Pain, severe (8-10) Stop: 03/21/17 05:54 Last Admin: 03/18/17 08:39 Dose: 1 tab Pantoprazole Sodium (Protonix Ec Tab) 40 mg PO DAILY [facility] Last Admin: 03/18/17 08:41 Dose: 40 mg Saccharomyces Boulardii (Florastor) 250 mg PO BID [facility] Last Admin: 03/18/17 08:41 Dose: 250 mg Sevelamer HCl (Renagel) 2,400 mg PO TID [facility] Last Admin: 03/18/17 08:40 Dose: 2,400 mg Sitagliptin Phosphate (Januvia) 25 mg PO DAILY [facility] Last Admin: 03/18/17 08:39 Dose: 25 mg Vitamin B Complex/Vit C/Folic Acid (Nephro-Niko) 1 tab PO DAILY [facility] Last Admin: 03/18/17 08:42 Dose: 1 tab - Labs Labs: 03/14/17 05:00 03/13/17 09:30 PT 16.3 Seconds (9.8-13.1) H 03/15/17 05:10 INR 1.4 (0.9-1.2) H 03/15/17 05:10 APTT 30.7 Seconds (25.6-37.1) 03/11/17 04:59 Assessment and Plan (1) Altered mental status Status: Acute (2) Pleural effusion Status: Acute (3) Pneumonia Status: Acute (4) Shortness of breath Status: Acute (5) CHF (congestive heart failure) Status: Chronic
--- NOTE | 2017-03-18 10:24 | CP.PCM.PN ---
Subjective - Date & Time of Evaluation Date of Evaluation: 03/17/17 Time of Evaluation: 09:30 - Subjective Subjective: Patient is stable Has no chest pain or SOB Has no fever. Objective - Vital Signs/Intake and Output Vital Signs (last 24 hours): Temp Pulse Resp BP Pulse Ox 98.7 F 97 H 20 121/51 L 96 03/18/17 08:00 03/18/17 08:00 03/18/17 08:00 03/18/17 08:00 03/18/17 08:00 Intake and Output: 03/18/17 03/18/17 06:59 18:59 Intake Total 300 Balance 300 - Medications Medications: Current Medications Acetaminophen (Tylenol 325mg Tab) 650 mg PO Q4H PRN PRN Reason: Pain, Mild (1-3) Last Admin: 03/16/17 21:30 Dose: 650 mg Atorvastatin Calcium (Lipitor) 10 mg PO [facility] Last Admin: 03/17/17 21:43 Dose: 10 mg Cadexomer Iodine (Iodosorb) 1 applic TOP DAILY [facility] Last Admin: 03/18/17 08:43 Dose: 1 applic Collagenase (Santyl) 1 applic TOP DAILY [facility] Last Admin: 03/18/17 08:40 Dose: 1 applic Docusate Sodium (Colace) 200 mg PO [facility] Last Admin: 03/17/17 21:42 Dose: Not Given Epoetin Avery (Procrit) 10,000 unit IV [facility] [place] Last Admin: 03/15/17 10:51 Dose: 10,000 unit Home Med (Albiglutide [Tanzeum]) 30 mg SC [facility] [place] Home Med (Vorapaxar Sulfate [Zontivity]) 2.08 mg PO DAILY [facility] Iron Sucrose 100 mg/ Sodium (Chloride) 105 mls @ 105 mls/hr IV [facility] [place] Last Admin: 03/15/17 12:31 Dose: 105 mls/hr Vancomycin HCl 500 mg/ Sodium (Chloride) 100 mls @ 100 mls/hr IVPB [facility] [place] Insulin Detemir (Levemir) 6 units SC [facility] Last Admin: 03/17/17 21:43 Dose: 6 units Insulin Human Regular (Humulin R) 0 units SC [facility] PRN Reason: Protocol Last Admin: 03/18/17 06:31 Dose: 2 units Megestrol Acetate (Megace) 400 mg PO DAILY [facility] Last Admin: 03/18/17 08:41 Dose: 400 mg Ondansetron HCl (Zofran Tab) 4 mg PO Q8H PRN PRN Reason: Nausea/Vomiting Oxycodone/Acetaminophen (Percocet 5/325 Mg Tab) 1 tab PO Q6 PRN PRN Reason: Pain, severe (8-10) Stop: 03/21/17 05:54 Last Admin: 03/18/17 08:39 Dose: 1 tab Pantoprazole Sodium (Protonix Ec Tab) 40 mg PO DAILY [facility] Last Admin: 03/18/17 08:41 Dose: 40 mg Saccharomyces Boulardii (Florastor) 250 mg PO BID [facility] Last Admin: 03/18/17 08:41 Dose: 250 mg Sevelamer HCl (Renagel) 2,400 mg PO TID [facility] Last Admin: 03/18/17 08:40 Dose: 2,400 mg Sitagliptin Phosphate (Januvia) 25 mg PO DAILY [facility] Last Admin: 03/18/17 08:39 Dose: 25 mg Vitamin B Complex/Vit C/Folic Acid (Nephro-Niko) 1 tab PO DAILY [facility] Last Admin: 03/18/17 08:42 Dose: 1 tab - Labs Labs: 03/14/17 05:00 03/13/17 09:30 PT 16.3 Seconds (9.8-13.1) H 03/15/17 05:10 INR 1.4 (0.9-1.2) H 03/15/17 05:10 APTT 30.7 Seconds (25.6-37.1) 03/11/17 04:59 Assessment and Plan (1) Altered mental status Status: Acute (2) Pleural effusion Status: Acute (3) Pneumonia Status: Acute (4) Shortness of breath Status: Acute (5) CHF (congestive heart failure) Status: Chronic
[2017-03-18] MEDS: EPOETIN ALFA 10,000 UNIT/ML ML IV SCH (10:25)
--- NOTE | 2017-03-18 10:26 | CP.PCM.PN ---
Subjective - Date & Time of Evaluation Date of Evaluation: 03/18/17 Time of Evaluation: 10:24 - Subjective Subjective: Patient is currently on dialysis\ Scheduled for thoracentesis tomorrow. Has no chest pain or SOB. Objective - Vital Signs/Intake and Output Vital Signs (last 24 hours): Temp Pulse Resp BP Pulse Ox 98.7 F 97 H 20 121/51 L 96 03/18/17 08:00 03/18/17 08:00 03/18/17 08:00 03/18/17 08:00 03/18/17 08:00 Intake and Output: 03/18/17 03/18/17 06:59 18:59 Intake Total 300 Balance 300 - Medications Medications: Current Medications Acetaminophen (Tylenol 325mg Tab) 650 mg PO Q4H PRN PRN Reason: Pain, Mild (1-3) Last Admin: 03/16/17 21:30 Dose: 650 mg Atorvastatin Calcium (Lipitor) 10 mg PO [facility] Last Admin: 03/17/17 21:43 Dose: 10 mg Cadexomer Iodine (Iodosorb) 1 applic TOP DAILY [facility] Last Admin: 03/18/17 08:43 Dose: 1 applic Collagenase (Santyl) 1 applic TOP DAILY [facility] Last Admin: 03/18/17 08:40 Dose: 1 applic Docusate Sodium (Colace) 200 mg PO [facility] Last Admin: 03/17/17 21:42 Dose: Not Given Epoetin Avery (Procrit) 10,000 unit IV [facility] [place] Last Admin: 03/15/17 10:51 Dose: 10,000 unit Home Med (Albiglutide [Tanzeum]) 30 mg SC [facility] [place] Home Med (Vorapaxar Sulfate [Zontivity]) 2.08 mg PO DAILY [facility] Iron Sucrose 100 mg/ Sodium (Chloride) 105 mls @ 105 mls/hr IV [facility] [place] Last Admin: 03/15/17 12:31 Dose: 105 mls/hr Vancomycin HCl 500 mg/ Sodium (Chloride) 100 mls @ 100 mls/hr IVPB [facility] [place] Insulin Detemir (Levemir) 6 units SC [facility] Last Admin: 03/17/17 21:43 Dose: 6 units Insulin Human Regular (Humulin R) 0 units SC [facility] PRN Reason: Protocol Last Admin: 03/18/17 06:31 Dose: 2 units Megestrol Acetate (Megace) 400 mg PO DAILY [facility] Last Admin: 03/18/17 08:41 Dose: 400 mg Ondansetron HCl (Zofran Tab) 4 mg PO Q8H PRN PRN Reason: Nausea/Vomiting Oxycodone/Acetaminophen (Percocet 5/325 Mg Tab) 1 tab PO Q6 PRN PRN Reason: Pain, severe (8-10) Stop: 03/21/17 05:54 Last Admin: 03/18/17 08:39 Dose: 1 tab Pantoprazole Sodium (Protonix Ec Tab) 40 mg PO DAILY [facility] Last Admin: 03/18/17 08:41 Dose: 40 mg Saccharomyces Boulardii (Florastor) 250 mg PO BID [facility] Last Admin: 03/18/17 08:41 Dose: 250 mg Sevelamer HCl (Renagel) 2,400 mg PO TID [facility] Last Admin: 03/18/17 08:40 Dose: 2,400 mg Sitagliptin Phosphate (Januvia) 25 mg PO DAILY [facility] Last Admin: 03/18/17 08:39 Dose: 25 mg Vitamin B Complex/Vit C/Folic Acid (Nephro-Niko) 1 tab PO DAILY [facility] Last Admin: 03/18/17 08:42 Dose: 1 tab - Labs Labs: 03/14/17 05:00 03/13/17 09:30 PT 16.3 Seconds (9.8-13.1) H 03/15/17 05:10 INR 1.4 (0.9-1.2) H 03/15/17 05:10 APTT 30.7 Seconds (25.6-37.1) 03/11/17 04:59 - Head Exam Head Exam: NORMAL INSPECTION - Eye Exam Eye Exam: Normal appearance - ENT Exam ENT Exam: Mucous Membranes Moist - Respiratory Exam Respiratory Exam: Clear to Ausculation Bilateral - Cardiovascular Exam Cardiovascular Exam: REGULAR RHYTHM - GI/Abdominal Exam GI & Abdominal Exam: Normal Bowel Sounds - Neurological Exam Neurological Exam: Awake, Oriented x3 - Psychiatric Exam Psychiatric exam: Normal Mood Assessment and Plan (1) Altered mental status Status: Acute (2) Pleural effusion Status: Acute (3) Pneumonia Status: Acute (4) Shortness of breath Status: Acute (5) CHF (congestive heart failure) Status: Chronic - Assessment and Plan (Free Text) Plan: Cont meds Cont tx Cont PT For thoracentesis in am. check labs.
--- NOTE | 2017-03-18 13:25 | CP.PCM.PN ---
Subjective - Date & Time of Evaluation Date of Evaluation: 03/18/17 Time of Evaluation: 10:30 - Subjective Subjective: NO CHEST PAIN OR SOB ONLY COMPLAINT IS BILAT FOOT PAIN Objective - Vital Signs/Intake and Output Vital Signs (last 24 hours): Temp Pulse Resp BP Pulse Ox 98.7 F 97 H 20 121/51 L 96 03/18/17 08:00 03/18/17 08:00 03/18/17 08:00 03/18/17 08:00 03/18/17 08:00 Intake and Output: 03/18/17 03/18/17 06:59 18:59 Intake Total 300 Balance 300 - Medications Medications: Current Medications Acetaminophen (Tylenol 325mg Tab) 650 mg PO Q4H PRN PRN Reason: Pain, Mild (1-3) Last Admin: 03/16/17 21:30 Dose: 650 mg Atorvastatin Calcium (Lipitor) 10 mg PO [facility] Last Admin: 03/17/17 21:43 Dose: 10 mg Cadexomer Iodine (Iodosorb) 1 applic TOP DAILY [facility] Last Admin: 03/18/17 08:43 Dose: 1 applic Collagenase (Santyl) 1 applic TOP DAILY [facility] Last Admin: 03/18/17 08:40 Dose: 1 applic Docusate Sodium (Colace) 200 mg PO [facility] Last Admin: 03/17/17 21:42 Dose: Not Given Epoetin Avery (Procrit) 10,000 unit [place] [facility] [place] Last Admin: 03/18/17 10:25 Dose: 10,000 unit Home Med (Albiglutide [Tanzeum]) 30 mg SC [facility] [place] Home Med (Vorapaxar Sulfate [Zontivity]) 2.08 mg PO DAILY [facility] Iron Sucrose 100 mg/ Sodium (Chloride) 105 mls @ 105 mls/hr [place] [facility] Last Admin: 03/18/17 10:26 Dose: 105 mls/hr Vancomycin HCl 500 mg/ Sodium (Chloride) 100 mls @ 100 mls/hr IVPB [facility] Last Admin: 03/18/17 10:27 Dose: 100 mls/hr Insulin Detemir (Levemir) 6 units SC [facility] Last Admin: 03/17/17 21:43 Dose: 6 units Insulin Human Regular (Humulin R) 0 units SC [facility] PRN Reason: Protocol Last Admin: 03/18/17 06:31 Dose: 2 units Megestrol Acetate (Megace) 400 mg PO DAILY [facility] Last Admin: 03/18/17 08:41 Dose: 400 mg Ondansetron HCl (Zofran Tab) 4 mg PO Q8H PRN PRN Reason: Nausea/Vomiting Oxycodone/Acetaminophen (Percocet 5/325 Mg Tab) 1 tab PO Q6 PRN PRN Reason: Pain, severe (8-10) Stop: 03/21/17 05:54 Last Admin: 03/18/17 08:39 Dose: 1 tab Pantoprazole Sodium (Protonix Ec Tab) 40 mg PO DAILY [facility] Last Admin: 03/18/17 08:41 Dose: 40 mg Saccharomyces Boulardii (Florastor) 250 mg PO BID [facility] Last Admin: 03/18/17 08:41 Dose: 250 mg Sevelamer HCl (Renagel) 2,400 mg PO TID [facility] Last Admin: 03/18/17 08:40 Dose: 2,400 mg Sitagliptin Phosphate (Januvia) 25 mg PO DAILY [facility] Last Admin: 03/18/17 08:39 Dose: 25 mg Vitamin B Complex/Vit C/Folic Acid (Nephro-Niko) 1 tab PO DAILY [facility] Last Admin: 03/18/17 08:42 Dose: 1 tab - Labs Labs: 03/14/17 05:00 03/13/17 09:30 PT 16.3 Seconds (9.8-13.1) H 03/15/17 05:10 INR 1.4 (0.9-1.2) H 03/15/17 05:10 APTT 30.7 Seconds (25.6-37.1) 03/11/17 04:59 - Respiratory Exam Respiratory Exam: Decreased Breath Sounds - Cardiovascular Exam Cardiovascular Exam: REGULAR RHYTHM, +S1, +S2 - Extremities Exam Additional comments: BOTH FEET ARE CYANOTIC BUT WARM - Additional Findings Additional findings: WEATHER REPORTER WITH PACEMAKER RHYTHM PODIATRY, PULMONARY AND NEPHROLOGY NOTES ALL REVIEWED Assessment and Plan - Assessment and Plan (Free Text) Assessment: PNEUMONIA CAD PAD CRF ON HD RIGHT PLEURAL EFFUSION Plan: THORACENTESIS NOW POSTPONED UNTIL TOMORROW DUE TO HD TODAY DISCUSSED WIDTH DR PERRY AND WE WILL OBTAIN A CXR TODAY TO REASSESS THE PLEURAL EFFUSION SIZE
--- NOTE | 2017-03-18 15:27 | US ---
PROCEDURE: Duplex ultrasound of the right lower extremity arteries. HISTORY: Poor perfusion COMPARISON: None available. TECHNIQUE: Grayscale and duplex Doppler evaluation of the right common femoral, superficial femoral, popliteal, posterior tibial and dorsalis pedis arteries was performed.. FINDINGS: COMMON FEMORAL ARTERY: Patent. Maximal flow velocity of 138.3 cm/s. SUPERFICIAL FEMORAL ARTERY:Patent. Maximal flow velocity of 143.1 cm/s. POPLITEAL ARTERY:Patent. Maximal flow velocity of 41 cm/s. POSTERIOR TIBIAL ARTERY: Patent. Maximal flow velocity of 60.3 cm/s. DORSALIS PEDIS ARTERY: Nondiagnostic assessment related to overlying bandages OTHER FINDINGS: None. IMPRESSION: Diffuse heterogeneous partially calcified plaque. No hemodynamically significant stenotic lesions. Concordant results (preliminary interpretation) provided by [facility]. Procedure Completed: 19:02 Preliminary ([facility]) Report: Dictated and Authenticated: 14:46 March 17, 2017. Final Interpretation: 15:22 March 17, 2017.
--- NOTE | 2017-03-18 21:23 | CP.PCM.PN ---
Subjective - Date & Time of Evaluation Date of Evaluation: 03/18/17 Time of Evaluation: 06:45 - Subjective Subjective: 76 year old male patient seen at bedside this morning 1 month s/p right foot 2nd digit amputation (DOS 02/16/17), amputation site dehiscence, and gangrene. Patient seen resting in bed comfortably, AAOx3 and NAD. Patient denies any acute events overnight. Patient reports continued pain to right foot. Patient denies N/V/F/D/C/SOB. No other pedal complaints at this time. Objective - Vital Signs/Intake and Output Vital Signs (last 24 hours): Temp Pulse Resp BP Pulse Ox 98.5 F 113 H 18 97/55 L 99 03/18/17 19:32 03/18/17 19:32 03/18/17 19:32 03/18/17 19:32 03/18/17 19:32 - Medications Medications: Current Medications Acetaminophen (Tylenol 325mg Tab) 650 mg PO Q4H PRN PRN Reason: Pain, Mild (1-3) Last Admin: 03/16/17 21:30 Dose: 650 mg Atorvastatin Calcium (Lipitor) 10 mg PO [facility] Last Admin: 03/18/17 21:20 Dose: 10 mg Cadexomer Iodine (Iodosorb) 1 applic TOP DAILY [facility] Last Admin: 03/18/17 08:43 Dose: 1 applic Collagenase (Santyl) 1 applic TOP DAILY [facility] Last Admin: 03/18/17 08:40 Dose: 1 applic Docusate Sodium (Colace) 200 mg PO [facility] Last Admin: 03/17/17 21:42 Dose: Not Given Epoetin Avery (Procrit) 10,000 unit IV [facility] [place] Last Admin: 03/18/17 10:25 Dose: 10,000 unit Home Med (Albiglutide [Tanzeum]) 30 mg SC [facility] Home Med (Vorapaxar Sulfate [Zontivity]) 2.08 mg PO DAILY [facility] Iron Sucrose 100 mg/ Sodium (Chloride) 105 mls @ 105 mls/hr IV [facility] [place] Last Admin: 03/18/17 10:26 Dose: 105 mls/hr Vancomycin HCl 500 mg/ Sodium (Chloride) 100 mls @ 100 mls/hr IVPB [facility] [place] Last Admin: 03/18/17 10:27 Dose: 100 mls/hr Insulin Detemir (Levemir) 6 units SC [facility] Last Admin: 03/17/17 21:43 Dose: 6 units Insulin Human Regular (Humulin R) 0 units SC ACHS [facility] PRN Reason: Protocol Last Admin: 03/18/17 17:03 Dose: 2 units Megestrol Acetate (Megace) 400 mg PO DAILY [facility] Last Admin: 03/18/17 08:41 Dose: 400 mg Ondansetron HCl (Zofran Tab) 4 mg PO Q8H PRN PRN Reason: Nausea/Vomiting Oxycodone/Acetaminophen (Percocet 5/325 Mg Tab) 1 tab PO Q6 PRN PRN Reason: Pain, severe (8-10) Stop: 03/21/17 05:54 Last Admin: 03/18/17 16:57 Dose: 1 tab Pantoprazole Sodium (Protonix Ec Tab) 40 mg PO DAILY [facility] Last Admin: 03/18/17 08:41 Dose: 40 mg Saccharomyces Boulardii (Florastor) 250 mg PO BID [facility] Last Admin: 03/18/17 17:01 Dose: 250 mg Sevelamer HCl (Renagel) 2,400 mg PO TID [facility] Last Admin: 03/18/17 17:01 Dose: 2,400 mg Sitagliptin Phosphate (Januvia) 25 mg PO DAILY [facility] Last Admin: 03/18/17 08:39 Dose: 25 mg Vitamin B Complex/Vit C/Folic Acid (Nephro-Niko) 1 tab PO DAILY [facility] Last Admin: 03/18/17 08:42 Dose: 1 tab - Labs Labs: 03/14/17 05:00 03/13/17 09:30 PT 16.3 Seconds (9.8-13.1) H 03/15/17 05:10 INR 1.4 (0.9-1.2) H 03/15/17 05:10 APTT 30.7 Seconds (25.6-37.1) 03/11/17 04:59 - Constitutional Appears: Well, Non-toxic, No Acute Distress - Extremities Exam Additional comments: RLE focused physical exam: Vasc: DP and PT pulses palpable 1/4. CFT <3 to digits x4. TG cool to cool. No edema noted. Neuro: Gross sensation intact Derm: 2nd digit amputation site shows dehiscence and proximal aspect has exposed metatarsal head. Periwound erythema and fibrous base noted. Superficial wound noted to dorsum of medial midfoot, 25% fibrous and 75% necrotic base. No fluctuance noted. Previous bullae site noted to plantar medial arch has mixed fibro-necrotic base with approximately 2cm opening tracking deep to fascia. No drainage noted to plantar wound. Bullae base is fluctuant. Ortho: Pain on palpation noted to plantar foot. - Neurological Exam Neurological Exam: Alert, Awake, Oriented x3 - Psychiatric Exam Psychiatric exam: Normal Affect, Normal Mood Assessment and Plan - Assessment and Plan (Free Text) Assessment: 76 year old male with complicated Chance grade 4 ulceration, 1 month s/p right 2nd digit amputation (DOS 02/16/17) secondary to diabetic neuropathy and PAD Plan: Patient seen and evaluated at bedside. Discussed with attending, Dr. Lebron. Charts, labs, vitals reviewed: afebrile, VSS Santyl was applied to wound dehiscence and dressed with DSD. Dorsal midfoot and plantarmedial arch dressed with DSD. No surgical intervention from podiatry standpoint. Continue IV abx per primary = Vancomycin Continue pain meds per primary = Tylenol, Percocet Podiatry will continue to follow while in house.
[2017-03-18] MEDS: Insulin Detemir 100 Units/ml Inj SC SCH (22:58)
--- NOTE | 2017-03-19 09:22 | CP.PCM.PN ---
Subjective - Date & Time of Evaluation Date of Evaluation: 03/19/17 Time of Evaluation: 09:22 - Subjective Subjective: SHORTNESS OF BREATH IMPROVED POST DIALYSIS Objective - Vital Signs/Intake and Output Vital Signs (last 24 hours): Temp Pulse Resp BP Pulse Ox 97.9 F 69 20 105/56 L 96 03/19/17 08:08 03/19/17 08:08 03/19/17 08:08 03/19/17 08:08 03/19/17 08:08 - Medications Medications: Current Medications Acetaminophen (Tylenol 325mg Tab) 650 mg PO Q4H PRN PRN Reason: Pain, Mild (1-3) Last Admin: 03/16/17 21:30 Dose: 650 mg Aspirin (Aspirin Chewable) 81 mg PO DAILY [facility] Atorvastatin Calcium (Lipitor) 10 mg PO [facility] Last Admin: 03/18/17 21:20 Dose: 10 mg Cadexomer Iodine (Iodosorb) 1 applic TOP DAILY [facility] Last Admin: 03/18/17 08:43 Dose: 1 applic Clopidogrel Bisulfate (Plavix) 75 mg PO DAILY [facility] Collagenase (Santyl) 1 applic TOP DAILY [facility] Last Admin: 03/18/17 08:40 Dose: 1 applic Docusate Sodium (Colace) 200 mg PO [facility] Last Admin: 03/18/17 21:23 Dose: Not Given Epoetin Avery (Procrit) 10,000 unit IV [facility] Last Admin: 03/18/17 10:25 Dose: 10,000 unit Home Med (Albiglutide [Tanzeum]) 30 mg SC [facility] [place] [place] Home Med (Vorapaxar Sulfate [Zontivity]) 2.08 mg PO DAILY [facility] Iron Sucrose 100 mg/ Sodium (Chloride) 105 mls @ 105 mls/hr IV [facility] Last Admin: 03/18/17 10:26 Dose: 105 mls/hr Vancomycin HCl 500 mg/ Sodium (Chloride) 100 mls @ 100 mls/hr IVPB [facility] Last Admin: 03/18/17 10:27 Dose: 100 mls/hr Insulin Detemir (Levemir) 6 units SC [facility] Last Admin: 03/18/17 22:58 Dose: 6 units Insulin Human Regular (Humulin R) 0 units SC [facility] PRN Reason: Protocol Last Admin: 03/18/17 22:36 Dose: Not Given Megestrol Acetate (Megace) 400 mg PO DAILY [facility] Last Admin: 03/18/17 08:41 Dose: 400 mg Ondansetron HCl (Zofran Tab) 4 mg PO Q8H PRN PRN Reason: Nausea/Vomiting Oxycodone/Acetaminophen (Percocet 5/325 Mg Tab) 1 tab PO Q6 PRN PRN Reason: Pain, severe (8-10) Stop: 03/21/17 05:54 Last Admin: 03/18/17 16:57 Dose: 1 tab Pantoprazole Sodium (Protonix Ec Tab) 40 mg PO DAILY [facility] Last Admin: 03/18/17 08:41 Dose: 40 mg Saccharomyces Boulardii (Florastor) 250 mg PO BID [facility] Last Admin: 03/18/17 17:01 Dose: 250 mg Sevelamer HCl (Renagel) 2,400 mg PO TID [facility] Last Admin: 03/18/17 17:01 Dose: 2,400 mg Sitagliptin Phosphate (Januvia) 25 mg PO DAILY [facility] Last Admin: 03/18/17 08:39 Dose: 25 mg Vitamin B Complex/Vit C/Folic Acid (Nephro-Niko) 1 tab PO DAILY [facility] Last Admin: 03/18/17 08:42 Dose: 1 tab - Labs Labs: 03/14/17 05:00 03/13/17 09:30 PT 16.3 Seconds (9.8-13.1) H 03/15/17 05:10 INR 1.4 (0.9-1.2) H 03/15/17 05:10 APTT 30.7 Seconds (25.6-37.1) 03/11/17 04:59 - Constitutional Appears: No Acute Distress - Head Exam Head Exam: ATRAUMATIC, NORMAL INSPECTION, NORMOCEPHALIC - Eye Exam Eye Exam: EOMI, Normal appearance, PERRL Pupil Exam: NORMAL ACCOMODATION, PERRL - ENT Exam ENT Exam: Mucous Membranes Moist, Normal Exam - Neck Exam Neck Exam: Full ROM, Normal Inspection. absent: Lymphadenopathy - Respiratory Exam Respiratory Exam: Decreased Breath Sounds, Prolonged Expiratory Phase, Rales, NORMAL BREATHING PATTERN - Cardiovascular Exam Cardiovascular Exam: REGULAR RHYTHM, +S1, +S2. absent: Murmur - GI/Abdominal Exam GI & Abdominal Exam: Soft, Normal Bowel Sounds. absent: Tenderness - Rectal Exam Rectal Exam: NORMAL INSPECTION - Extremities Exam Extremities Exam: Full ROM, Normal Capillary Refill, Normal Inspection. absent : Joint Swelling, Pedal Edema - Back Exam Back Exam: NORMAL INSPECTION - Neurological Exam Neurological Exam: Alert, Awake, CN II-XII Intact, Oriented x3 - Psychiatric Exam Psychiatric exam: Normal Affect, Normal Mood - Skin Skin Exam: Dry, Intact, Normal Color, Warm Assessment and Plan - Assessment and Plan (Free Text) Assessment: R PLEURAL EFFUSION IMPROVED ON CXR Plan: CANCEL THORACENTESES RESUME ASA AND PLAVIX
[2017-03-19] MEDS: Saccharomyces Boulardi 250 mg Cap PO SCH (09:26)
[2017-03-19] MEDS: Iodine 0.9% GEL TOP SCH (09:26)
[2017-03-19] MEDS: Pantoprazole 40 mg EC Tab PO SCH (09:27)
[2017-03-19] MEDS: Megestrol Acetate 40 mg/ml Cup PO SCH (09:27)
[2017-03-19] MEDS: Multivitamin Vitamin B Complex (Nephro-Vite) Tab PO SCH (09:27)
[2017-03-19] MEDS: Santyl Collagenase OINTMENT TOP SCH (09:28)
--- NOTE | 2017-03-19 10:11 | CP.PCM.PN ---
Subjective - Date & Time of Evaluation Date of Evaluation: 03/19/17 Time of Evaluation: 07:30 - Subjective Subjective: 76 year old male patient seen at bedside with attending, Dr. Lebron, s/p 1 month right 2nd digit amputation with wound dehiscence and gangrene. Patient seen resting comfortably, AAOx3 and NAD. Patient was not wearing surgical shoe to right foot at this visit. Patient denies any acute events overnight. Patient denies pain to his right foot at this visit. Patient denies N/V/F/C/D/SOB. No other pedal complaints at this time. Objective - Vital Signs/Intake and Output Vital Signs (last 24 hours): Temp Pulse Resp BP Pulse Ox 97.9 F 69 20 105/56 L 96 03/19/17 08:08 03/19/17 08:08 03/19/17 08:08 03/19/17 08:08 03/19/17 08:08 - Medications Medications: Current Medications Acetaminophen (Tylenol 325mg Tab) 650 mg PO Q4H PRN PRN Reason: Pain, Mild (1-3) Last Admin: 03/16/17 21:30 Dose: 650 mg Aspirin (Aspirin Chewable) 81 mg PO DAILY [facility] Atorvastatin Calcium (Lipitor) 10 mg PO HS [facility] Last Admin: 03/18/17 21:20 Dose: 10 mg Cadexomer Iodine (Iodosorb) 1 applic TOP DAILY [facility] Last Admin: 03/19/17 09:26 Dose: 1 applic Clopidogrel Bisulfate (Plavix) 75 mg PO DAILY [facility] Collagenase (Santyl) 1 applic TOP DAILY [facility] Last Admin: 03/19/17 09:28 Dose: 1 applic Docusate Sodium (Colace) 200 mg PO HS [facility] Last Admin: 03/18/17 21:23 Dose: Not Given Epoetin Avery (Procrit) 10,000 unit IV MWF [facility] Last Admin: 03/18/17 10:25 Dose: 10,000 unit Home Med (Albiglutide [Tanzeum]) 30 mg SC TU [facility] Home Med (Vorapaxar Sulfate [Zontivity]) 2.08 mg PO DAILY [facility] Iron Sucrose 100 mg/ Sodium (Chloride) 105 mls @ 105 mls/hr IV MWF [facility] Last Admin: 03/18/17 10:26 Dose: 105 mls/hr Vancomycin HCl 500 mg/ Sodium (Chloride) 100 mls @ 100 mls/hr IVPB MWF [facility] Last Admin: 03/18/17 10:27 Dose: 100 mls/hr Insulin Detemir (Levemir) 6 units SC HS [facility] Last Admin: 03/18/17 22:58 Dose: 6 units Insulin Human Regular (Humulin R) 0 units SC [facility] PRN Reason: Protocol Last Admin: 03/18/17 22:36 Dose: Not Given Megestrol Acetate (Megace) 400 mg PO DAILY [facility] Last Admin: 03/19/17 09:27 Dose: 400 mg Ondansetron HCl (Zofran Tab) 4 mg PO Q8H PRN PRN Reason: Nausea/Vomiting Oxycodone/Acetaminophen (Percocet 5/325 Mg Tab) 1 tab PO Q6 PRN PRN Reason: Pain, severe (8-10) Stop: 03/21/17 05:54 Last Admin: 03/18/17 16:57 Dose: 1 tab Pantoprazole Sodium (Protonix Ec Tab) 40 mg PO DAILY [facility] Last Admin: 03/19/17 09:27 Dose: 40 mg Saccharomyces Boulardii (Florastor) 250 mg PO BID [facility] Last Admin: 03/19/17 09:26 Dose: 250 mg Sevelamer HCl (Renagel) 2,400 mg PO TID [facility] Last Admin: 03/19/17 09:27 Dose: 2,400 mg Sitagliptin Phosphate (Januvia) 25 mg PO DAILY [facility] Last Admin: 03/19/17 09:27 Dose: 25 mg Vitamin B Complex/Vit C/Folic Acid (Nephro-Niko) 1 tab PO DAILY [facility] Last Admin: 03/19/17 09:27 Dose: 1 tab - Labs Labs: 03/14/17 05:00 03/13/17 09:30 PT 16.3 Seconds (9.8-13.1) H 03/15/17 05:10 INR 1.4 (0.9-1.2) H 03/15/17 05:10 APTT 30.7 Seconds (25.6-37.1) 03/11/17 04:59 - Constitutional Appears: Well, Non-toxic, No Acute Distress - Extremities Exam Additional comments: RLE focused physical exam: Vasc: DP and PT pulses palpable 1/4. CFT <3 to digits x4. TG cool to cool. No edema noted. Neuro: Gross sensation intact. Derm: 1) Wound dehiscence noted to 2nd digit amputation site with fibrotic base and exposed metatarsal articular cartilage. Periwound erythema noted. 2) Superficial wound noted to dorsum of medial midfoot, base is 25% fibrous and 75 % necrotic. No purulence, drainage, malodor, fluctuance noted. 3) Previous bullae noted to plantar medial arch has mixed fibro-necrotic base with an approximately 2 cm opening at distomedial aspect of bullae. Opening tracks deep to fascia/tendon. No purulence, drainage, malodor noted. Bullae is fluctuant. Ortho: No pain on palpation noted to right foot. - Neurological Exam Neurological Exam: Alert, Awake, Oriented x3 - Psychiatric Exam Psychiatric exam: Normal Affect, Normal Mood Assessment and Plan - Assessment and Plan (Free Text) Assessment: 76 year old male patient seen at bedside with attending, Dr. Lebron for right foot wound dehiscence and gangrene. Plan: Patient seen and evaluated at bedside with attending, Dr. Lebron. Charts, labs, vitals reviewed: afebrile. Santyl applied to wounds and dressed with 4x4s, jaxson Nursing communication ordered for local wound care to right foot. Continue with abx per primary = Vancomycin Continue pain management per primary = Tylenol, Percocet. Podiatry will continue to follow patient closely while in house.
--- NOTE | 2017-03-19 10:38 | CP.PCM.PN ---
Subjective - Date & Time of Evaluation Date of Evaluation: 03/19/17 Time of Evaluation: 10:36 - Subjective Subjective: Patient is awake Eating much better shortness of breath improving Objective - Vital Signs/Intake and Output Vital Signs (last 24 hours): Temp Pulse Resp BP Pulse Ox 97.9 F 69 20 105/56 L 96 03/19/17 08:08 03/19/17 08:08 03/19/17 08:08 03/19/17 08:08 03/19/17 08:08 - Medications Medications: Current Medications Acetaminophen (Tylenol 325mg Tab) 650 mg PO Q4H PRN PRN Reason: Pain, Mild (1-3) Last Admin: 03/16/17 21:30 Dose: 650 mg Aspirin (Aspirin Chewable) 81 mg PO DAILY [facility] Atorvastatin Calcium (Lipitor) 10 mg PO [facility] Last Admin: 03/18/17 21:20 Dose: 10 mg Cadexomer Iodine (Iodosorb) 1 applic TOP DAILY [facility] Last Admin: 03/19/17 09:26 Dose: 1 applic Clopidogrel Bisulfate (Plavix) 75 mg PO DAILY [facility] Collagenase (Santyl) 1 applic TOP DAILY [facility] Last Admin: 03/19/17 09:28 Dose: 1 applic Docusate Sodium (Colace) 200 mg PO [facility] Last Admin: 03/18/17 21:23 Dose: Not Given Epoetin Avery (Procrit) 10,000 unit IV [facility] [place] Last Admin: 03/18/17 10:25 Dose: 10,000 unit Home Med (Albiglutide [Tanzeum]) 30 mg SC [facility] [place] Home Med (Vorapaxar Sulfate [Zontivity]) 2.08 mg PO DAILY [facility] Iron Sucrose 100 mg/ Sodium (Chloride) 105 mls @ 105 mls/hr IV [facility] [place] Last Admin: 03/18/17 10:26 Dose: 105 mls/hr Vancomycin HCl 500 mg/ Sodium (Chloride) 100 mls @ 100 mls/hr IVPB [facility] [place] Last Admin: 03/18/17 10:27 Dose: 100 mls/hr Insulin Detemir (Levemir) 6 units SC [facility] Last Admin: 03/18/17 22:58 Dose: 6 units Insulin Human Regular (Humulin R) 0 units SC [facility] PRN Reason: Protocol Last Admin: 07/17/17 22:36 Dose: Not Given Megestrol Acetate (Megace) 400 mg PO DAILY [facility] Last Admin: 03/19/17 09:27 Dose: 400 mg Ondansetron HCl (Zofran Tab) 4 mg PO Q8H PRN PRN Reason: Nausea/Vomiting Oxycodone/Acetaminophen (Percocet 5/325 Mg Tab) 1 tab PO Q6 PRN PRN Reason: Pain, severe (8-10) Stop: 03/21/17 05:54 Last Admin: 03/18/17 16:57 Dose: 1 tab Pantoprazole Sodium (Protonix Ec Tab) 40 mg PO DAILY [facility] Last Admin: 03/19/17 09:27 Dose: 40 mg Saccharomyces Boulardii (Florastor) 250 mg PO BID [facility] Last Admin: 03/19/17 09:26 Dose: 250 mg Sevelamer HCl (Renagel) 2,400 mg PO TID [facility] Last Admin: 03/19/17 09:27 Dose: 2,400 mg Sitagliptin Phosphate (Januvia) 25 mg PO DAILY [facility] Last Admin: 03/19/17 09:27 Dose: 25 mg Vitamin B Complex/Vit C/Folic Acid (Nephro-Niko) 1 tab PO DAILY [facility] Last Admin: 03/19/17 09:27 Dose: 1 tab - Labs Labs: 03/14/17 05:00 03/13/17 09:30 PT 16.3 Seconds (9.8-13.1) H 03/15/17 05:10 INR 1.4 (0.9-1.2) H 03/15/17 05:10 APTT 30.7 Seconds (25.6-37.1) 03/11/17 04:59 - Constitutional Appears: No Acute Distress - ENT Exam ENT Exam: Mucous Membranes Moist - Respiratory Exam Respiratory Exam: Rhonchi. absent: Chest Wall Tenderness - Cardiovascular Exam Cardiovascular Exam: absent: JVD, Rubs - GI/Abdominal Exam GI & Abdominal Exam: Normal Bowel Sounds - Extremities Exam Extremities Exam: absent: Calf Tenderness - Back Exam Back Exam: absent: CVA tenderness (L), CVA tenderness (R) - Neurological Exam Neurological Exam: Alert Assessment and Plan (1) Altered mental status Status: Acute (2) ESRD needing dialysis Assessment & Plan: Repeat chest x-ray showed improvement and thoracocentesis has been canceled by the pulmonary because of decreasing the amount of the pleural effusion End stage renal disease continue hemodialysis for tomorrow on Saturday Antibiotics as recommended Status: Acute (3) Pneumonia Status: Acute
--- NOTE | 2017-03-19 11:06 | CP.PCM.PN ---
Subjective - Date & Time of Evaluation Date of Evaluation: 03/19/17 Time of Evaluation: 10:30 - Subjective Subjective: NO CHEST PAIN BREATHING BETTER Objective - Vital Signs/Intake and Output Vital Signs (last 24 hours): Temp Pulse Resp BP Pulse Ox 97.9 F 69 20 105/56 L 96 03/19/17 08:08 03/19/17 08:08 03/19/17 08:08 03/19/17 08:08 03/19/17 08:08 - Medications Medications: Current Medications Acetaminophen (Tylenol 325mg Tab) 650 mg PO Q4H PRN PRN Reason: Pain, Mild (1-3) Last Admin: 03/16/17 21:30 Dose: 650 mg Aspirin (Aspirin Chewable) 81 mg PO DAILY [facility] Atorvastatin Calcium (Lipitor) [address] [facility] Last Admin: 03/18/17 21:20 Dose: 10 mg Cadexomer Iodine (Iodosorb) 1 applic TOP DAILY [facility] Last Admin: 03/19/17 09:26 Dose: 1 applic Clopidogrel Bisulfate (Plavix) 75 mg PO DAILY [facility] Collagenase (Santyl) 1 applic TOP DAILY [facility] Last Admin: 03/19/17 09:28 Dose: 1 applic Docusate Sodium (Colace) [address] [facility] Last Admin: 03/18/17 21:23 Dose: Not Given Epoetin Avery (Procrit) 10,000 unit IV [facility] Last Admin: 03/18/17 10:25 Dose: 10,000 unit Home Med (Albiglutide [Tanzeum]) 30 mg SC [facility] Home Med (Vorapaxar Sulfate [Zontivity]) 2.08 mg PO DAILY [facility] Iron Sucrose 100 mg/ Sodium (Chloride) 105 mls @ 105 mls/hr IV [facility] Last Admin: 03/18/17 10:26 Dose: 105 mls/hr Vancomycin HCl 500 mg/ Sodium (Chloride) 100 mls @ 100 mls/hr IVPB [facility] Last Admin: 03/18/17 10:27 Dose: 100 mls/hr Insulin Detemir (Levemir) [address] [facility] Last Admin: 03/18/17 22:58 Dose: 6 units Insulin Human Regular (Humulin R) 0 units SC [facility] PRN Reason: Protocol Last Admin: 03/18/17 22:36 Dose: Not Given Megestrol Acetate (Megace) 400 mg PO DAILY [facility] Last Admin: 03/19/17 09:27 Dose: 400 mg Ondansetron HCl (Zofran Tab) 4 mg PO Q8H PRN PRN Reason: Nausea/Vomiting Oxycodone/Acetaminophen (Percocet 5/325 Mg Tab) 1 tab PO Q6 PRN PRN Reason: Pain, severe (8-10) Stop: 03/21/17 05:54 Last Admin: 03/18/17 16:57 Dose: 1 tab Pantoprazole Sodium (Protonix Ec Tab) 40 mg PO DAILY [facility] Last Admin: 03/19/17 09:27 Dose: 40 mg Saccharomyces Boulardii (Florastor) 250 mg PO BID [facility] Last Admin: 03/19/17 09:26 Dose: 250 mg Sevelamer HCl (Renagel) 2,400 mg PO TID [facility] Last Admin: 03/19/17 09:27 Dose: 2,400 mg Sitagliptin Phosphate (Januvia) 25 mg PO DAILY [facility] Last Admin: 03/19/17 09:27 Dose: 25 mg Vitamin B Complex/Vit C/Folic Acid (Nephro-Niko) 1 tab PO DAILY [facility] Last Admin: 03/19/17 09:27 Dose: 1 tab - Labs Labs: 03/14/17 05:00 03/13/17 09:30 PT 16.3 Seconds (9.8-13.1) H 03/15/17 05:10 INR 1.4 (0.9-1.2) H 03/15/17 05:10 APTT 30.7 Seconds (25.6-37.1) 03/11/17 04:59 - Respiratory Exam Respiratory Exam: Clear to Ausculation Bilateral - Cardiovascular Exam Cardiovascular Exam: REGULAR RHYTHM, +S1, +S2 - Additional Findings Additional findings: LEAD IOS DEVELOPER VVI PACING CXR DECREASE IN RIGHT PLEURAL EFFUSION PULMONARY, RENAL AND PODIATRY NOTES REVIEWED Assessment and Plan - Assessment and Plan (Free Text) Assessment: CAD PNEUMONIA RT PLEURAL EFFUSION-IMPROVED CRF ON HD DM Plan: CONTINUE VANCOMYCIN, ATORVASTATIN AND WOUND CARE THORACENTESIS CANCELLED AND ASPIRIN AND CLOPIDOGREL RESUMED DOSE DOSE CARVEDILOL RESTARTED BP IS STILL LOW NORMAL
[2017-03-19] MEDS: Insulin Regular 100 units/ml SC SCH (11:23)
[2017-03-19 11:24] LABS: CALCIUM 8.9 mg/dL (8.4-10.2)
[2017-03-19 11:27] LABS: HEMOGLOBIN 8.3 g/dL (12.0-18.0); MEAN CELL VOLUME 69.8 fl (80.0-94.0); MEAN CORPUSCULAR HEMOGLOBIN 21.1 pg (27.0-31.0); MEAN CORPUSCULAR HGB CONC 30.2 g/dL (33.0-37.0); RBC 3.95 Mil/uL (4.40-5.90); RED CELL DISTRIBUTION WIDTH 25.1 % (11.5-14.5); WHITE BLOOD COUNT 9.9 K/uL (4.8-10.8)
[2017-03-19 11:31] LABS: INR 1.5 (0.9-1.2); PROTHROMBIN TIME 16.7 Seconds (9.8-13.1)
--- NOTE | 2017-03-19 12:08 | RAD ---
PROCEDURE: CHEST RADIOGRAPH, 1 VIEW HISTORY: pleural effusion COMPARISON: 03/11/2017 FINDINGS: LUNGS: No definite infiltrate. Opacity at right base likely secondary to pleural effusion. PLEURA: Small right pleural effusion. Likely fluid within minor fissure. CARDIOVASCULAR: AICD. Normal heart size. Status post CABG. OSSEOUS STRUCTURES: No significant abnormalities. VISUALIZED UPPER ABDOMEN: Normal. OTHER FINDINGS: None. IMPRESSION: Small right pleural effusion. No definite infiltrate. AICD noted.
[2017-03-19 12:33] VITALS: BP 107/60; PULSE 92; RESP 18; TEMP 97.4; O2SAT 97
--- NOTE | 2017-03-22 12:17 | PQF GENQUE ---
Dr. Huff, Engineering Lab Technician documented the following information with no mention of this diagnosis in your documentation. Please indicate in your next progress note and /or discharge summary your agreement with clinical documentation consultant or provide clarification that this diagnosis is not a current condition. (1) Diagnosis: Sepsis Documented by: Renal MD Location: Consult note of and progress note of 03/14 (2) If in agreement with Sepsis etiology if known? i.e. due to Pneumonia etc. OR: Disagree 03/13: Renal consult: Patient with end stage renal disease on maintenance hemodialysis admitted with high WBC appears to be sepsis with end underlying pneumonia perhaps. 03/14 Renal note: Impression and plan : ---Sepsis what appeared to be improving with leukocytosis Patient receiving vancomycin 500 mg daily perhaps we'll have to change it every other day , to get stat vancomycin level and hold vancomycin until we get the level pulse: 94->93->88-> b/p: 94/60->109/58->110/68 WBC: 21.3->17.6->14.2 left shift blood cultures: no growth x 5 days wound culture: Serratia Marcesens Stenotrophomonas Maltophilia This form is a permanent part of the medical record Clarification of your documentation is requested to better reflect the severity of illness and intensity of treatment of your patient. Indicators present [] Specify: [] [] Specify: [] [] Specify: [] [] Specify: [] Location in the medical record that reflects the above clinical findings: [] Treatment Provided: [] PHYSICIAN'S RESPONSE Based on your medical judgment of the clinical indicators outlined above please clarify the following: [] Practitioner response [] If unable to determine, please check the box, sign and date. Present On Admission (POA) Indicator: [] Present at the time of admission [] Not present at the time of admission [] Clinically Undetermined In responding to this query, please exercise your independent professional judgment. The fact that a question is asked does not imply that any particular answer is desired or expected. Thank you for your clarification on this documentation. If you have any questions please call. * Thank you, Doris Prajapati RN BSN ext. #[phone] MTDD
== END 2017-03-19 15:28 | DRG 193 ==
LOC: H.ER 15:53 → H.ERHOLD 18:20 → H.TEL 22:34
PROVIDERS: ADMIT Family Medicine; ATTEND Family Medicine
PROC: 5A09457 Assistance with Respiratory Ventilation, 24-96 Consecutive Hours, Continuous Positive Airway Pressure (ICD-10-PCS; 2017-03-12)
PROC: 5A1D60Z (ICD-10-PCS; principal; 2017-03-13)
DX: J18.9 Pneumonia, unspecified organism (principal); N18.6 End stage renal disease; L89.159 Pressure ulcer of sacral region, unspecified stage; E11.52 Type 2 diabetes mellitus with diabetic peripheral angiopathy with gangrene; I12.0 Hypertensive chronic kidney disease with stage 5 chronic kidney disease or end stage renal disease; J90 Pleural effusion, not elsewhere classified; I48.91 Unspecified atrial fibrillation; J98.11 Atelectasis; T81.31XA Disruption of external operation (surgical) wound, not elsewhere classified, initial encounter; E11.22 Type 2 diabetes mellitus with diabetic chronic kidney disease; E11.621 Type 2 diabetes mellitus with foot ulcer; I25.5 Ischemic cardiomyopathy; I25.10 Atherosclerotic heart disease of native coronary artery without angina pectoris; Z95.5 Presence of coronary angioplasty implant and graft; Z95.1 Presence of aortocoronary bypass graft; Z99.2 Dependence on renal dialysis; R09.02 Hypoxemia; L97.519 Non-pressure chronic ulcer of other part of right foot with unspecified severity; D64.9 Anemia, unspecified; E78.5 Hyperlipidemia, unspecified; E78.00 Pure hypercholesterolemia, unspecified; Z89.421 Acquired absence of other right toe(s); E11.40 Type 2 diabetes mellitus with diabetic neuropathy, unspecified